=== PATIENT | male | born 1975 | race Caucasian/White ===

== ENCOUNTER 2018-04-02 19:20 | Emergency (ER) | payer OTHER, SELFPAY ==
[2018-04-02 19:21] VITALS: BP 155/98; PULSE 96; RESP 18; TEMP 35.8; O2SAT 95; BMI 29.6
--- NOTE | 2018-04-02 21:21 | ED.DCSUM_ITS ---
- ER Visit Summary Date of Service: 04/02/18 Chief Complaint: Right hand palm laceration thenar eminence History of Present Illness: The patient is a 43 M hand dominant. Past history of anxiety. Unsure of his last tetanus shot which will need to be updated. Order a light fixture at home when it broke lacerated the palm of his right hand at the thenar eminence. No other complaints. This occurred about 2 hours ago. Physical Examination: Well-appearing middle-age male. Vital signs are stable. He is afebrile. He does not appear to be septic or toxic no distress. HEENT exam unremarkable. Lungs clear to auscultation. Heart regular rhythm no murmur. Abdomen soft nontender. Patient moving all 4 extremities. Neurovascular intact. Problems right hand midportion thenar eminence is due to centimeter laceration is a flap that will need to be repaired. Mild oozing of blood. He is able open and close all digits of the right hand. Normal touch sensation. No foreign body or signs of infection. Test Results: None Emergency Department Course and Treatment: Tetanus updated. Procedure note: Right hand laceration repair. Local anesthetic with lidocaine. Washed and explored. Irrigated. Shur-Clens. Closed using 2 simple interrupted 5-0 Ethilon sutures. Proper hemostasis and wound closure obtained. Patient was instructed on wound care. Suture removal. Patient tolerated procedure well. Treatment Plan: Wound care. Suture removal 7-10 days. Return if any signs of infection. Disposition: Discharge Impression: Right hand palm laceration to know centimeters ER repair 2.5 cm. Tetanus updated This note was generated with [employer] dictation software. It may contain incorrect words, spelling, and punctuation that were not noted in review of the chart prior to signing ED Disposition - Plan for ED Patient: Chief Complaint: Laceration Instructions: ED Laceration Hand Referrals: Francisco Javier Osorio MD [Primary Care Provider] - 10 Day for suture removal Additional Instructions: Keep wound clean. Antibiotic ointment daily. Suture removal in 7-10 days. Watch for any signs of infection.
[2018-04-02] MEDS: Diphth,Pertuss(Acell),Tet Vac 0.5 ML Vial IM (21:25)
[2018-04-02 21:29] VITALS: RESP 16
[2018-04-02 23:06] VITALS: BP 142/60; PULSE 80; RESP 16; O2SAT 98
== END 2018-04-02 23:07 | disposition home or self-care (01) ==
PROVIDERS: Emergency Provider Emergency Medicine; Family Provider Internal Medicine; PCP Internal Medicine
DX: S61.411A Laceration without foreign body of right hand, initial encounter (principal); W25.XXXA Contact with sharp glass, initial encounter; Y93.9 Activity, unspecified; Y92.009 Unspecified place in unspecified non-institutional (private) residence as the place of occurrence of the external cause; Y99.9 Unspecified external cause status; Z23 Encounter for immunization; F41.9 Anxiety disorder, unspecified; Z79.899 Other long term (current) drug therapy
CPT/HCPCS: 12001; 90471; 90715; 99284

== ENCOUNTER 2018-09-20 16:04 | Emergency (ER) | payer OTHER, SELFPAY ==
[2018-09-20 16:06] VITALS: BP 134/95; PULSE 108; RESP 16; TEMP 36.3; O2SAT 97; BMI 30.5
--- NOTE | 2018-09-20 16:48 | ED.VISSUMM ---
- ER Visit Summary Date of Service: 09/20/18 Chief Complaint: Nausea, vomiting and diarrhea History of Present Illness: The patient is a 43 M past medical history of anxiety. Patient states that this morning he has had nausea and vomiting x6 without blood diarrhea x3 and feels dehydrated. Denies any significant abdominal pain. Thinks he may have eaten some old or bad ham last night. No one else ate it. Denies any fever. No melena no hematemesis. Physical Examination: Middle-aged male. No acute distress. Vital signs are stable. Afebrile. H EENT exam mildly dry mixed memories. Pupils are reactive light. No facial droop. Signs of trauma. Neck nontender. Lungs clear to auscultation bilaterally. Heart regular rhythm rate about 110 no murmur. Abdomen is soft. Nondistended. Normal bowel sounds no peritoneal signs. No signs of obstruction. Both the right upper right lower quadrant unremarkable. No hernias or masses. Patient is moving all 4 extremities. Neurovascular intact. Neurologically is awake and alert with no focal motor deficits. Test Results: None Emergency Department Course and Treatment: Patient either has a viral gastroenteritis or possibly food poisoning. He will be treated with IV fluids and Zofran and reassess. If he can hold down p.o. fluids will be discharged home. Repeat exam patient is doing well at 2130. Abdomen is benign. He feels better after IV fluids and IV Zofran. He is been able to hold down p.o. fluids. He is comfortable being discharged home. Treatment Plan: Zofran home pack. Increase diet slowly. Plenty fluids and rest. Return if worse. Follow-up with his doctor if not improving. Disposition: Discharge Impression: Acute viral gastroenteritis Mild dehydration This note was generated with [employer] dictation software. It may contain incorrect words, spelling, and punctuation that were not noted in review of the chart prior to signing ED Disposition - Plan for ED Patient: Referrals: Francisco Javier Osorio MD [Primary Care Provider] -
[2018-09-20] MEDS: Ondansetron 4 MG/2 ML Vial IV (17:35)
[2018-09-20] MEDS: 0.9% Normal Saline 1,000 ML 1000 ML IV (17:35)
[2018-09-20 18:20] VITALS: PULSE 89; RESP 16; O2SAT 99
[2018-09-20 20:00] VITALS: BP 143/87; PULSE 96; RESP 21; O2SAT 99
--- NOTE | 2018-09-20 21:42 | ED.DEP ---
ED Disposition - Plan for ED Patient: Disposition: Home or Assisted Living Instructions: ED Gastroenteritis Vs Food Poison Prescriptions: Ondansetron [Zofran Odt] 4 mg PO Q8H PRN PRN #7 tab PRN Reason: Nausea Referrals: Francisco Javier Osorio MD [Primary Care Provider] - 3-5 Days if not improving Additional Instructions: Plenty of fluids and rest. Increase diet slowly and as tolerated. Zofran as needed for nausea. Follow-up with not improving return if feeling worse.
[2018-09-20] MEDS: Ondansetron ODT 4 MG Tablet PO (21:49)
== END 2018-09-20 21:51 | disposition home or self-care (01) ==
PROVIDERS: Emergency Provider Emergency Medicine; Family Provider Internal Medicine; PCP Internal Medicine
DX: A08.4 Viral intestinal infection, unspecified (principal); E86.0 Dehydration; F41.9 Anxiety disorder, unspecified; Z79.899 Other long term (current) drug therapy
CPT/HCPCS: 96361; 96374; 99282; J7030; A4216; J2405

== ENCOUNTER 2018-11-02 18:38 | Emergency (ER) | payer OTHER, SELFPAY ==
[2018-11-02 18:39] VITALS: BP 126/82; PULSE 79; RESP 16; TEMP 36.6; O2SAT 99; BMI 29.7
--- NOTE | 2018-11-02 20:21 | RAD_ITS ---
STUDY: X-RAY CHEST REASON FOR EXAM: Male, 43 years old. Painful rash and cough TECHNIQUE: Frontal and lateral views of the chest. COMPARISON: 03/08/2017 FINDINGS: The lungs are clear and expanded. There is no demonstrated pleural abnormality. Normal size heart. Normal mediastinum and bela. Normal visualized pulmonary arteries. Normal visualized aortic arch and descending thoracic aorta. There are diffuse degenerative changes of the visualized thoracic spine. Remote right rib trauma. There is no demonstrated abnormality of the visualized soft tissue structures of the upper abdomen. RAD/Chest PA and Lateral IMPRESSION: No acute pulmonary findings. Electronically Signed: Osito Pineda MD at 20:39 EDT Tel , Service support ,
--- NOTE | 2018-11-02 20:53 | ED.VISSUMM ---
- ER Visit Summary Date of Service: 11/02/18 Chief Complaint: Rash History of Present Illness: The patient is a [address] Osorio. He reports he has a rash posterior right thigh that began 5 days ago. The rash was preceded by pain. Describes the pain now is an aching, dull pain that is it a 10 worsened 5-10 currently. Is worsened by touching it. Is relieved by not touching it. He denies any paresthesias distally. On review of system patient does report that he had a nonproductive cough for the past 6 days that is associated with chills and mild shortness of breath. He denies any other complaints. Physical Examination: Vitals: Stable. Afebrile. General: Well-nourished and well-developed. Head: Normocephalic atraumatic. Neck: Supple, no lymphadenopathy. No JVD. Nontender. Cardiovascular: Regular rate and rhythm. No murmurs. Respiratory: No respiratory distress. Clear to auscultation bilaterally. Abdominal: Soft, nontender, nondistended, normal bowel sounds. No guarding, rebound, or peritoneal signs. Back: Nontender. Extremities: Nontender, no edema. Skin: Vesicular rash on the posterior surface of his right thigh consistent with shingles. Neurologic: Alert and oriented ?3. Cranial nerves II through XII are intact. Normal strength and sensation. Psych: Normal affect. Test Results: Chest x-ray shows no acute disease. Emergency Department Course and Treatment: Patient was treated with acyclovir p.o. He is resting comfortably. Treatment Plan: Patient will be discharged with acyclovir, Marion, and Tessalon Perles. Instructed to keep the area covered. Follow-up with his primary care physician 1 week if not improving. Return to the emergency department for any worsening symptoms. Disposition: To home in improved and stable condition. Impression: 1. URI. 2. Shingles right L5 distribution. This note was generated with [employer] dictation software. It may contain incorrect words, spelling, and punctuation that were not noted in review of the chart prior to signing ED Disposition - Plan for ED Patient: Disposition: Home or Assisted Living Instructions: Shingles (Herpes Zoster), URI, Viral, No Abx (Adult) Prescriptions: Hydrocodone Bitart/Apap 5-325 [Marion 5MG-325MG] 1 tab PO Q6H PRN PRN 3 Days #10 tab PRN Reason: Pain Prescription Printed Benzonatate [Tessalon Perle] 200 mg PO TID PRN PRN #20 cap PRN Reason: Cough Prescription Printed Acyclovir [Zovirax] 800 mg PO 5X/DAY #35 tab Prescription Printed Referrals: Francisco Javier Osorio MD [Primary Care Provider] - 1 Week if not improving
[2018-11-02] MEDS: Acyclovir 800 MG Tablet PO (21:08)
[2018-11-02 21:13] VITALS: RESP 16
--- NOTE | 2018-11-02 21:14 | ED.RN ---
REVIEWED D/C INSTRUCTIONS, FOLLOW UP CARE, PRESCRIPTIONS, AND S/S THAT WOULD WARRANT A RETURN TO THE ED WITH PT. PT VERBALIZED AN UNDERSTANDING AND DENIES FURTHER QUESTIONS FOR THIS RN. PT SKIN P/W/D, RESP EVEN AND UNLABORED, PT A&O X 3, NO DISTRESS NOTED. PT AMBULATED OUT OF ED, GAIT STEADY.
== END 2018-11-02 21:15 | disposition home or self-care (01) ==
PROVIDERS: Emergency Provider Emergency Medicine; Family Provider Internal Medicine; PCP Internal Medicine
DX: B02.9 Zoster without complications (principal); J06.9 Acute upper respiratory infection, unspecified; Z79.899 Other long term (current) drug therapy
CPT/HCPCS: 71046; 99283

== ENCOUNTER 2019-01-03 17:56 | Emergency (ER) | payer OTHER, SELFPAY ==
[2019-01-03 17:56] VITALS: BP 138/74; PULSE 86; RESP 18; TEMP 36.4; O2SAT 97; BMI 31.2
--- NOTE | 2019-01-03 18:01 | US_ITS ---
STUDY: SCROTUM ULTRASOUND REASON FOR EXAM: Male, 43 years old. Left testicular pain TECHNIQUE: Ultrasound evaluation of the scrotum was performed with color Doppler and static boston-scale imaging. COMPARISON: None. FINDINGS: RIGHT TESTICLE INTRATESTICULAR: There is a normal size of the right testicle. The right testicle measures 4.7 x 3.0 x 2.5 cm. There is a homogenous echotexture. There is normal arterial and normal venous vascularity. There is no demonstrated right testicular mass or cyst. EXTRATESTICULAR: The epididymis is normal in size. The epididymis head measures 1.2 x 0.9 x 0.8 cm. There is normal vascularity of the epididymis. There is no demonstrated epididymal cystic structure. There is a small hydrocele. There is no demonstrated varicocele. There is no demonstrated extratesticular mass or cyst. LEFT TESTICLE INTRATESTICULAR: There is a normal size of the left testicle. The left testicle measures 4.3 x 2.5 x 2.2 cm. There is a homogenous echotexture. There is normal arterial and normal venous vascularity. There is no demonstrated left testicular mass or cyst. EXTRATESTICULAR: The epididymis is normal in size. The epididymis head measures 1.6 x 0.9 x 0.7 cm. There is normal vascularity of the epididymis. There is no demonstrated epididymal cystic structure. There is a small hydrocele. There is no demonstrated varicocele. There is no demonstrated extratesticular mass or cyst. US/Testicular with Arterial Flow IMPRESSION: Normal bilateral testicles. No testicular torsion. Electronically Signed: Alessandro Foley DO at 19:23 EDT Tel [phone], Service support ,
[2019-01-03 18:57] LABS: Bacteria 0 SEEN /hpf (None Seen); Mucous, Urine 0 SEEN /hpf (<or=2+); Squamous Epithelial Cells - UA 0 SEEN /hpf (0-5); White Blood Cells 0 SEEN /hpf (0-5)
[2019-01-03 19:51] LABS: Color, Urine Yellow (Yellow); Glucose, Dipstick Normal (Normal); Ketone-Dipstick Negative (Negative); Leukocyte Esterase-Dipstick Negative /ul (Negative); Nitrite-Dipstick Negative (Negative); Occult Blood-Urine Negative /ul (Negative); Protein-Dipstick Negative (Negative); Urine Bilirubin Dipstick Negative (Negative); Urine Clarity Clear (Clear); Urine Urobilinogen 1 mg/dl (Normal)
[2019-01-03 20:04] LABS: Red Blood Cells-Urine 0-5 SEEN /hpf (0-5)
--- NOTE | 2019-01-03 20:32 | ED.DCSUM_ITS ---
- ER Visit Summary Date of Service: 01/03/19 Chief Complaint: [Left testicle pain] History of Present Illness: The patient is a 43 M [presents to the emergency department with pain in his left testicle that started around 10 AM. Patient denies any trauma. He denies urinary symptoms. Had some mild nausea. Patient states that he had similar pain on the opposite side several weeks ago but it resolved after a couple of days. Patient denies any fevers. Patient does have a remote history of epididymitis. Patient has had hernia repairs in the past but denies any abnormal lumps or masses.] Physical Examination: [HEENT-PERRLA, EOMI. Cranial nerves II through XII grossly intact. TMs clear. Mucous membranes moist. No adenopathy. Cardiovascular-regular rate and rhythm without murmur or ectopy Lungs-clear to auscultation, chest wall stable without crepitus or subcu emphysema Abdomen-normoactive bowel sounds, soft, nontender, no rebound or rigidity, no peritoneal signs. exam-patient is circumcised. Patient has some diffuse tenderness that is difficult to localize over the left testicle as well as the epididymis. Testicle has a normal lie and patient has a normal cremasteric reflex. No hernias palpated in the inguinal canal. No masses palpated. Extremities-intact ?4, normal range of motion, normal pulses, atraumatic] Test Results: [Ultrasound of the testicles obtained was normal. She had a urinalysis that was normal.] Emergency Department Course and Treatment: [] Treatment Plan: [Patient advised to use ibuprofen for discomfort. Patient will be given referral to urology for follow-up.] Disposition: [Discharged home in stable condition.] Impression: [Left testicle pain-etiology uncertain] This note was generated with [employer] dictation software. It may contain incorrect words, spelling, and punctuation that were not noted in review of the chart prior to signing ED Disposition - Plan for ED Patient: Referrals: Francisco Javier Osorio MD [Primary Care Provider] -
--- NOTE | 2019-01-03 20:34 | ED.DEP ---
ED Disposition - Plan for ED Patient: Prescriptions: Ibuprofen [Motrin] 600 mg PO Q8H PRN PRN #30 tab PRN Reason: Pain Score 1-10/10 Prescription Printed Referrals: Francisco Javier Osorio MD [Primary Care Provider] - Ramón Figueroa MD [STAFF PHYSICIAN] - 3-5 Days Additional Instructions: Reason for pain is unclear. Follow up with urology if pain continues. Return if fever, vomiting, or condition worsens
[2019-01-03 20:53] VITALS: RESP 14
== END 2019-01-03 20:54 | disposition home or self-care (01) ==
LOC: ED 19:06
PROVIDERS: Emergency Provider Emergency Medicine; Family Provider Internal Medicine; PCP Internal Medicine
DX: N50.812 Left testicular pain (principal); R11.0 Nausea; Z79.899 Other long term (current) drug therapy
CPT/HCPCS: 76870; 81001; 93976; 99282

== ENCOUNTER → 2019-11-28 | Outpatient (CLI) | payer OTHER, SELFPAY ==
[2019-11-28 11:24] LABS: Hematocrit 43.4 % (40-54); Hemoglobin 14.6 g/dL (13.0-16.5); Mean Corp Hgb Conc 33.6 g/dL (32-36); Mean Corpuscular Hgb 29.4 pg (27.0-32.0); Mean Corpuscular Volume 87.3 fL (80-94); Mean Platelet Vol. 9.6 fl (6.2-12.0); Platelet Count 332 K/mm3 (150-450); RBC Distribution Width SD 40.9 fl (35.1-43.9); Red Blood Count 4.97 M/mm3 (4.6-6.2); White Blood Count 6.3 K/mm3 (4.4-11.0)
[2019-11-28 11:31] LABS: D-Dimer Quantitative (DVT/PE) <= 0.27 FEU/ug/m (0.27-0.49)
[2019-11-28 11:42] LABS: Anion Gap 4 (5-15); BUN 13 mg/dL (7-18); BUN/Creat Ratio 12.4 RATIO (10-20); Calcium,Total 8.8 mg/dL (8.5-10.1); Chloride 107 mmol/L (98-107); Creatinine, Serum 1.05 mg/dL (0.70-1.30); EST Glomerular Filtration Rate 81 mL/min (>60); Est Glom Filt Rate - Afr Amer 98 mL/min (>60); Glucose 91 mg/dL (74-106); Potassium 4.1 mmol/L (3.5-5.1); Sodium Level 141 mmol/L (136-145)
== END | disposition home or self-care (01) ==
PROVIDERS: PCP Internal Medicine; Referring Provider Nurse Practitioner; Visit Provider Nurse Practitioner
DX: R07.9 Chest pain, unspecified (principal); R06.02 Shortness of breath
CPT/HCPCS: 80048; 85027; 85379

== ENCOUNTER → 2019-12-11 05:48 | Outpatient (CLI) | payer OTHER, SELFPAY ==
--- NOTE | 2019-12-11 08:10 | STRESSREP ---
Stress Test Report Date: 12-11-2019 Procedure: Exercise tolerance test/imaging study Indications: Chest pain Consent: Per the patient Procedure: The patient exercised on a Michael protocol for 10 minutes and 30 seconds completing Stage III and 1 minute and 30 seconds of Stage IV achieving a peak heart rate of 155 bpm (88 % predicted maximal heart rate) with a peak blood pressure 170/88 mmHg and a peak MET capacity of 12 METs. The baseline ECG demonstrated normal sinus rhythm; low voltage QRS; poor R wave progression. The peak exercise ECG demonstrated no obvious ECG changes. There were no cardiac dysrhythmias pretest, during exercise, or recovery. The functional capacity was considered good. There was no complaint of chest discomfort during exercise or recovery. The examination was discontinued secondary to dyspnea. Impression: 1. Technically adequate (percent predicted maximal heart rate greater than 85%) exercise tolerance test 2. Peak exercise ECG with no obvious ECG changes 3. There were no cardiac dysrhythmias pretest, during exercise, or recovery 4. Nuclear images pending Myocardial perfusion imaging study: Technique: The patient was injected with 14.6 mCi of technetium 99m Cardiolite and subsequently rest SPECT Cardiolite nuclear imaging was obtained in the horizontal long, vertical long, and short axis views. The patient exercised on a Michael protocol for 10 minutes and 30 seconds completing Stage III and 1 minute and 30 seconds of Stage IV achieving a peak heart rate of 155 bpm (88 % predicted maximal heart rate) with a peak blood pressure 170/88 mmHg and a peak MET capacity of 12 METs. The patient was injected with 44.3 mCi of technetium 99m Cardiolite and subsequently stress SPECT Cardiolite nuclear imaging was obtained in the horizontal long, vertical long, and short axis views. A gated Cardiolite study at peak stress was obtained. Interpretation: Rest and stress SPECT Cardiolite nuclear imaging status post realignment, normalization, and attenuation correction, demonstrates the appearance of relative uniform tracer uptake and myocardial perfusion appearing within normal limits. There is end systolic thickening and brightening. The gated Cardiolite study demonstrates myocardial thickening and inward wall motion. The reported LVEF is 62 %. Impression: 1. Rest and stress SPECT Cardiolite nuclear imaging demonstrate relative uniform tracer uptake and myocardial perfusion appearing within normal limits. 2. The gated Cardiolite study reports an LVEF of 62 %. This note was generated with [employer] software. It may contain incorrect words, spelling, and punctuation that were not noted in checking the note before signing.
== END ==
PROVIDERS: PCP Internal Medicine; Referring Provider Nurse Practitioner; Visit Provider Nurse Practitioner
DX: R07.9 Chest pain, unspecified (principal); R06.02 Shortness of breath
CPT/HCPCS: 78452; 93017; A9500; A4216

== ENCOUNTER 2020-09-17 21:40 | Emergency (ER) | payer OTHER, SELFPAY ==
[2020-09-17 21:41] VITALS: BP 138/89; PULSE 87; RESP 18; TEMP 36.5; O2SAT 95; BMI 32.1
--- NOTE | 2020-09-17 22:16 | EKG12_ITS ---
Test Reason : CP Blood Pressure : / mmHG Vent. Rate : 082 BPM Atrial Rate : 082 BPM P-R Int : 154 ms QRS Dur : 100 ms QT Int : 394 ms P-R-T Axes : 044 -51 007 degrees QTc Int : 460 ms Normal sinus rhythm Low voltage QRS Left anterior fascicular block Abnormal ECG Confirmed by LAURA KHANNA, ALISSA ([id number]), index editor SHAUN MARIN ([id number]) on 09/19/2020 8:40:18 AM Referred By: RONY Confirmed By:ALISSA SANCHEZ MD
[2020-09-17 22:22] VITALS: BP 129/93; PULSE 82; RESP 16; O2SAT 96; O2SAT 99
--- NOTE | 2020-09-17 22:23 | RAD_ITS ---
STUDY: X-RAY CHEST REASON FOR EXAM: Male, 45 years old. chest pain TECHNIQUE: Single AP portable view of the chest. COMPARISON: 11/02/2018 FINDINGS: The lungs are clear and expanded. There is no demonstrated pleural abnormality. Normal size heart. Normal mediastinum and bela. Normal visualized pulmonary arteries. Normal visualized aortic arch and descending thoracic aorta. Normal visualized thoracic spine. Normal visualized ribs, clavicles, and shoulders. There is no demonstrated abnormality of the visualized soft tissue structures of the upper abdomen. RAD/Chest 1 View (Portable) IMPRESSION: Normal x-ray examination of the chest. Electronically Signed: Albert Walker DO at 22:50 EDT Tel , Service support ,
[2020-09-17 22:26] LABS: Absolute Lymphocyte Count 3.53 X10^3/uL (0.83-4.51); Absolute Neutrophil Count 3.6 X10^3/uL (2.0-7.7); Basophil# 0.03 X10^3/uL; Basophil% 0.4 % (0-1); Eosinophil# 0.19 X10^3/uL; Eosinophils% 2.4 % (0-5); Hematocrit 43.9 % (40-54); Hemoglobin 14.5 g/dL (13.0-16.5); Lymphocyte # 3.53 X10^3/ul (0.83-4.51); Lymphocyte % 44.1 % (19-41); Mean Corpuscular Hgb 28.9 pg (27.0-32.0); Mean Corpuscular Volume 87.5 fL (80-94); Mean Platelet Vol. 9.5 fl (6.2-12.0); Monocyte# 0.61 X10^3/uL; Monocyte% 7.6 % (0-10); NRBC Flagged by Analyzer 0 % (0-5); Neutrophil # 3.61 X10^3/uL (2.7-7.7); Neutrophil % 45.1 % (47-70); Platelet Count 321 K/mm3 (150-450); RBC Distribution Width CV 12.9 % (11.6-14.6); Red Blood Count 5.02 M/mm3 (4.6-6.2)
[2020-09-17] MEDS: Aspirin 81 MG TAB.CHEW 324 MG PO (22:29)
[2020-09-17 22:46] LABS: Anion Gap 5 (5-15); BUN 20 mg/dL (7-18); BUN/Creat Ratio 16.7 RATIO (10-20); Calcium,Total 9.2 mg/dL (8.5-10.1); Chloride 105 mmol/L (98-107); EST Glomerular Filtration Rate 69 mL/min (>60); Est Glom Filt Rate - Afr Amer 84 mL/min (>60); Estimated Creatinine Clearance 77.74 ml/min; Glucose 101 mg/dL (74-106); Potassium 4.3 mmol/L (3.5-5.1); Sodium Level 139 mmol/L (136-145)
--- NOTE | 2020-09-17 23:08 | EDS_ITS ---
HPI History of Present Illness Chief Complaint: Chest Pain Narrative Narrative: Patient presents with a few day history of intermittent chest pain he is describing episodes of chest discomfort the last 1 to 2 seconds. He has no back pain or tearing sensation he has no DVT or PE risk factors. No pleuritic component. No calf pain. No recent fever or chills he does say he is more tired than normal but he is also very stressed at work and works 2 jobs. [facility] Medical History (Updated 09/17/20 @ 23:[address] Reginald Garcia MD) Hernia Home Medications cetirizine [Zyrtec] 10 mg PO DAILY 04/02/18 [History Last Taken 09/19/18] duloxetine 15 mg PO QODAY 04/02/18 [History Last Taken 09/19/18] fluticasone propionate 2 sprays IH DAILY 09/20/18 [History Last Taken 09/19/18] acyclovir 800 mg PO 5X/DAY #35 tab 11/02/18 [Rx Last Taken Unknown] benzonatate 200 mg PO TID PRN PRN #20 cap 11/02/18 [Rx Last Taken Unknown] ibuprofen 600 mg PO Q8H PRN PRN #30 tab 01/03/19 [Rx Last Taken Unknown] Allergy/AdvReac Type Severity Reaction Status Date / Time prochlorperazine AdvReac Other Verified 09/17/20 21:43 [From Compazine] Surgical History (Updated 09/17/20 @ 22:33 by Stacia Roberts) History of appendectomy Social History Smoking Status: Never smoker ROS ROS ED ROS Narrative Past medical history: Reviewed Medications: Reviewed Social history: Noncontributory Review of systems: All systems negative except as indicated General: No fever. Generalized fatigue Eyes: No visual changes ENT: No upper airway congestion, normal voice Neck: No neck pain Cardiovascular: Intermittent chest pain as in HPI Respiratory: No shortness of breath or cough Gastrointestinal: No abdominal pain, nausea vomiting or diarrhea Genitourinary: No dysuria Musculoskeletal: Denies myalgias no difficulty with ambulation Skin: No rash Neurological: No memory loss, confusion or any focal weakness Psych: No recent behavioral changes Hematologic: No easy bleeding or easy bruising EXAM Physical Exam Narrative Exam Narrative: Physical exam General: Well nourished, Well developed, No Acute Distress Head: Normocephalic, Atraumatic Eyes: Conjunctiva not pale ENT: Moist mucous membranes Neck: Supple, Nontender, No lymphadenopathy Cardiovascular: Regular rate, Regular rhythm Respiratory: No distress, CTA bilaterally Abdomen: Soft, Nontender, Nondistended Back: Nontender, Normal Inspection. Negative for: CVA tenderness Extremities: Nontender, No edema Skin: Normal color, No rash Neurological: Alert, Normal Strength, Normal Sensation Psychological: Normal affect Const Vital Signs: 09/17/20 21:41 09/17/20 22:22 Temperature 97.7 F L Temperature Source Temporal Pulse Rate 87 82 Respiratory Rate 18 16 Blood Pressure 138/89 H 129/93 H Blood Pressure Mean 105 105 Pulse Ox 95 99 Oxygen Delivery Method Room Air Room Air Heart Score History: Slightly/Non-Suspicious ECG: Normal Age: </= 45 years Risk Factors: 1 or 2 Risk Factors Troponin: </= Normal Limit Score: 1 MDM MDM MDM Narrative Medical decision making narrative: Patient has a normal work-up. Heart score is 1. I will discharge him with reassurance. He may have intermittent PVCs although I did not see him in the ED I will discharge with follow-up with cardiology. Lab Data Labs: Laboratory Results - last 24 hr 09/17/20 09/17/20 21:55 21:55 WBC 8.0 RBC 5.02 Hgb 14.5 Hct 43.9 MCV 87.5 MCH 28.9 MCHC 33.0 RDW Std Deviation 41.0 RDW Coeff of Francie 12.9 Plt Count 321 MPV 9.5 Immature Gran % (Auto) 0.400 Neut % (Auto) 45.1 L Lymph % (Auto) 44.1 H Irion % (Auto) 7.6 Eos % (Auto) 2.4 Baso % (Auto) 0.4 Absolute Neuts (auto) 3.6 Absolute Lymphs (auto) 3.53 Nucleated RBC % 0 Sodium 139 Potassium 4.3 Chloride 105 Carbon Dioxide 29.0 Anion Gap 5 BUN 20 H Creatinine 1.20 Estim Creat Clear Calc 77.74 Est GFR (MDRD) Af Amer 84 Est GFR (MDRD) Non-Af 69 BUN/Creatinine Ratio 16.7 Glucose 101 Calcium 9.2 Troponin I < 0.015 Radiography Chest X-Ray - ED: 1 View, Read by ED Physician and Read by Radiologist Diagnostic Testing: Radiology Impression Chest X-Ray 09/17/20 22:23 IMPRESSION: Normal x-ray examination of the chest. Electronically Signed: Albert Walker DO at 22:50 EDT Tel , Service support , X-ray interpreted by radiologist and emergency doctor is normal Discharge Plan Triage Chief Complaint: Chest Pain ED Provider: Reginald Garcia Dx/Rx/DC Orders Clinical Impression: Chest pain Instructions: ED Chest Pain, Uncertain Cause Prescriptions: No Action duloxetine 20 MG capsule 15 mg PO QODAY RF: 0 cetirizine [Zyrtec] 10 MG capsule 10 mg PO DAILY RF: 0 fluticasone propionate 1 SPRAY Nasal.Sry 2 sprays IH DAILY RF: 0 acyclovir 800 MG tablet 800 mg PO 5X/DAY Qty: 35 RF: 0 benzonatate 100 MG capsule 200 mg PO TID PRN PRN (Reason: Cough) Qty: 20 RF: 0 ibuprofen 600 MG tablet 600 mg PO Q8H PRN PRN (Reason: Pain Score 1-10/10) Qty: 30 RF: 0 Primary Care Provider: Francisco Javier Osorio Referrals: Dale Burroughs MD [STAFF PHYSICIAN] - 3-5 Days Francisco Javier Osorio MD [Primary Care Provider] - 2 Days Disposition Disposition: Home, self care
[2020-09-17 23:19] VITALS: BP 124/70; PULSE 79; RESP 16; O2SAT 98
== END 2020-09-17 23:20 | disposition home or self-care (01) ==
PROVIDERS: Emergency Provider Emergency Medicine; PCP Internal Medicine
DX: R07.9 Chest pain, unspecified (principal); Z79.899 Other long term (current) drug therapy
CPT/HCPCS: 71045; 80048; 84484; 85025; 93005; 99283; A4216

== ENCOUNTER 2020-10-27 09:00 | Outpatient (RCR) | payer OTHER, SELFPAY ==
--- NOTE | 2020-10-27 09:00 | BH.SGPN.GN ---
Behaviors/Verbalizations/Mental Status: []Client alert and oriented, neatly dressed and groomed. Eye contact good. Motor activity appropriate. Speech within normal limits. Affect congruent, mood anxious. Thoughts linear, logical, no signs of hallucinations or delusions. Reviewed client?s symptom tracker, no risk for suicidal ideation, plan, or intent as of 10/27/20 Response/Progress/Benefit: C[] Client responded well to session, attentive and receptive to encouragement. Client reports feeling anxious today as it is his first day in IOP. Client shared that over the past few months he had noticed more crying spells and thoughts of wanting to use a gun to just end it. Client shared he reached out to his outpatient therapist who recommended client come to IOP. Client stated he thought quitting his second job would be enjoy to reduce his depression and improve mood, but it did not solve all the issues. Client hopes to learn more about his mental health and coping skills while in IOP. Will continue IOP tx to prevent decompensation, reduce negative thinking patterns, and improve daily functioning. Narrative Note: []
--- NOTE | 2020-10-27 10:15 | BH.SGPN.GN ---
Behaviors/Verbalizations/Mental Status: [] Eye contact is good. Motor activity is appropriate. Appearance is neat and casual. Speech is Appropriate. Mood is anxious. Affect is congruent. Thoughts are linear and logical. No evidence of psychosis. Client Response/Progress/Benefit: [] Pt was an active participant in group discussion and activity. Attentive during psychoeducation on external coping skills and how coping skills can positively and negatively impact mental health. Reported ?I had to remind myself that it is okay to set the backpack down sometimes too, and ask myself Is it mine to carry??. Pt along with peers provided their thoughts and insights on the definition of coping skills. Pt worked with peers to identify barriers to using healthy coping skills which included; it?s easier, comfortable, habitual, or they don?t know other ways of coping. Worked within small group to complete challenge activity requiring use of several coping skills. Did well to provide and receive supportive feedback. Benefited from increased awareness of coping skills, benefits in using healthy coping skills, and common coping skill barriers. Will continue in IOP to improve continue to decrease anxiety, stabilize mood, and increase heathy coping. Narrative Note: []
--- NOTE | 2020-10-27 11:15 | BH.SGPN.GN ---
Behaviors/Verbalizations/Mental Status: []Client alert and oriented, casual dress, hygiene tended to. Eye contact good. Motor activity appropriate. Speech within normal limits. Affect congruent, mood anxious. Thoughts linear, logical, no signs of hallucinations or delusions. Client Response/Progress/Benefit: []Client responded well to session, actively listening and providing examples. Group discussed the different categories of coping skills which included distraction, emotional release, grounding, self-love, and thought challenging. Client participated in creating a coping skills ?menu? from the five categories of coping skills. Client's coping skill menu included: going on a walk, be artistic, 5 senses, saying no, and positive affirmations. Pt's first day in IOP. Appeared to benefit from increasing repertoire of healthy coping skills. Will continue tx to increase healthy coping, improve boundary setting and prevent decompensation.
--- NOTE | 2020-10-28 09:05 | BH.SGPN.GN ---
Behaviors/Verbalizations/Mental Status: [] Eye contact is good. Motor activity is appropriate. Appearance is neat. Speech is Appropriate. Mood is anxious. Affect is congruent. Thoughts are linear and logical. No evidence of psychosis. Reviewed daily check in sheet and no reports of suicidal ideations or intent. Client Response/Progress/Benefit: [] Pt was an active participant in group discussion. Attentive. Provided appropriate feedback. Emotion for today is hopeful. Reports that yesterday was his first day in IOP and he admits to being emotionally exhausted after groups. Shared that he took a quick nap and then followed through with attempting to accomplish goals that he created for himself during IOP. He baked for the first time since 03/30 which he enjoyed and was actually social with neighbors. Progress noted per pt report. He did report feeling tired as the result of his medications which he feels impacts his motivation and functioning throughout the day. Benefited from group support, encouragement, and feedback. Will continue in IOP to maintain safety, increase healthy coping, and improve functioning to return to work. Narrative Note: []
--- NOTE | 2020-10-28 10:16 | BH.SGPN.GN ---
Behaviors/Verbalizations/Mental Status: [] Client alert and oriented, casually dressed and groomed. Eye contact good. Motor activity appropriate. Speech within normal limits. Affect congruent, mood anxious and depressed. Thoughts linear, logical, no signs of hallucinations or delusions. Client Response/Progress/Benefit: [] Pt actively engaged in group discussion on conflict and the potential benefits of healthy approaches to conflict on mental health as well as barriers in taking a healthy approach to conflict resolution. Pt connected to fellow participants as they reflected on quote. Shared ?This takes me to serenity prayer, to accept the things I cannot change and the strength to change those that I can?. Pt attentive and engaged during psychoeducation about different conflict styles (avoidant, accommodating, cooperative, and competing). Pt identified most often uses accommodating styles for conflict, noting this has resulted in work impacting his physical and mental health as he is now working multiple jobs. Seemed to benefit from increased awareness of the different conflict styles. Pt to continue IOP to continue use of healthy coping skills, continue improving mood stability and anxiety management skills, and prevent decompensation. Narrative Note: []
--- NOTE | 2020-10-28 11:15 | BH.SGPN.GN ---
Behaviors/Verbalizations/Mental Status: []Client alert and oriented, neatly dressed and groomed. Eye contact good. Motor activity appropriate. Speech within normal limits. Affect congruent, mood anxious. Thoughts linear, logical, no signs of hallucinations or delusions. Client Response/Progress/Benefit: []Client engaged in session AEB contributing to discussion and engaging in activity. Client did well to review current conflict style and its impact on mental health. Attentive and taking notes during discussion on strategies for more effectively managing conflict in personal life. Client identified that accommodation is his ?default? conflict resolution type. Client wants to work on changing this by expressing his emotions and needs through words using I-statements. Appeared to benefit from gaining strategies to help client better manage conflict. Will continue IOP tx to prevent decompensation, gain healthy coping skills, and improve daily functioning Narrative Note: []
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
--- NOTE | 2020-10-29 10:15 | BH.SGPN.GN ---
Behaviors/Verbalizations/Mental Status: []Eye contact is good. Motor activity is appropriate. Appearance is neat. Speech is Appropriate. Mood is calm. Affect is congruent. Thoughts are linear and logical. No evidence of psychosis. Client Response/Progress/Benefit: []Client responded well to session, alert and attentive. Group reviewed components of healthy relationships as well as traits of unhealthy relationships. Client shared his romantic relationship has all the healthy components, but ?work is another story.? Group discussed benefits of healthy relationships for one?s mental health such as: validation, increased resilience, perspective, and improved mood. Group also discussed factors that may contribute to people being in unhealthy relationships. Client shared childhood upbringing can cause someone to enter an unhealthy relationship. Participated in the activity and appeared to benefit from gaining insight on risk factors for unhealthy relationships. Will continue to IOP tx to reduce negative thoughts, improve overall functioning, and improve mood. Narrative Note: []
[2020-10-29 10:25] VITALS: BP 134/99; PULSE 75
--- NOTE | 2020-10-29 11:15 | BH.SGPN.GN ---
Behaviors/Verbalizations/Mental Status: [] Eye contact is good. Motor activity is appropriate. Appearance is neat. Speech is Appropriate. Mood is anxious. Affect is congruent. Thoughts are linear and logical. No evidence of psychosis. Client Response/Progress/Benefit: [] Pt was an active participant in group discussion. Provided appropriate feedback and insight. Group processed the experiential activity and identified the skills that helped them succeed which included; working together, communication, persistence, trust, thoughtfulness, and being open to guidance. Able to relate how these skills are also important in a healthy relationships. Group processed skills which were unhelpful during activity which included; poor communication and rushed/impulsive decisions. Group identified the impact that unhealthy relationships can have on one's mental wellness which included; increased anxiety, increased depression, lower self-esteem, increased negative thoughts, poor self-care, physical health, indecisiveness, and confusion. Pt was able to identify one thing that he could do to improve his relationships which is set and maintain boundaries. Benefited from group through insight on collado aspects of unhealthy vs healthy relationships as well as identifying what she could do to improve her current relationships. Will continue in IOP to increase healthy coping skills, stabilize mood, and improve functioning to return to work. Narrative Note: []
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
--- NOTE | 2020-10-29 13:27 | BH.DR.ITP ---
Initial Treatment Plan Patient Information Visit Information: ADMISSION DATE: EXPECTED LOS: 4-6 weeks Problems/Symptoms Problem #1:: Anxiety Symptom:: Worry, panic attacks, rumination Problem #2:: Depression Symptom:: Down mood, apathy, decreased motivation, anhedonia, low energy, decreased concentration, history of suicidal ideation
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
--- NOTE | 2020-10-29 13:52 | BH.MTP_ITS ---
Master Treatment Plan - Patient Information Program Physician:: Dr. Brandt Primary Therapist:: Germania Alarcon [facility] - Psychiatric Diagnoses Psychiatric Diagnoses:: 1. Generalized anxiety disorder. 2. Major depressive disorder, recurrent, moderate Diagnosis Code(s):: F41.1 - Estimated LOS Estimated LOS (in weeks):: 6 Problem/Goal #1 - Problem/Goal #1 Stated Goal:: Stabilize anxiety level while increasing ability to function on a daily basis. Description of Barriers: Pt's distorted thoughts, difficulty saying no, guilt about not being at work, and low motivation could be potential barriers to treatment. Functional Impact: Pt has history of depression and anxiety who was referred to the [facility] behavioral health program by his therapist due to anxiety and depression and his inability to function well at work or at home. The patient has been very stressed by being forced to work 2 jobs in the past several months and when he complains that the job is too stressful and tries to give it up his workplace refuses to let him. This has resulted in severe anxiety and suicidal ideation 2 months ago with thoughts of killing himself with a gun. He asked his to take the guns out of the house at that time. He then had suicidal ideation again a few days ago. Pt currently on leave from work due to MH symptoms. The patient went to the emergency room on in September 2019 and again in September 2020 with severe anxiety, and chest pain and panic attack. Heart attack was ruled out both times. The patient quit his second job 1 week ago and this is permanent, but he now has some mild financial stress due to this. Endorses depressed mood with low motivation, apathy, decreased appetite, increased sleep, low energy, and decreased concentration. He does complain of increased anxiety with chest pain which resulted in several ER visits. - Objectives Objective #1 Stated Objective: Client will learn and implement 2-3 calming skills to reduce overall anxiety and manage anxiety. Interventions: Therapist will teach the client calming/relaxation skills (e.g., muscle relaxation, mindful breathing) and how to discriminate better between relaxation and tension; teach the client how to apply these skills to his/her daily life. Discharge Criteria: Client will have met this objective when can identify at least 2 calming skills that successfully help manage anxious symptoms. Target Date: 12/08/20 Review Date: 11/21/20 Objective #2 Stated Objective: Pt will decrease anxious symptoms AEB pt?s score on the DSM 5 cross-cutting measure improve pt?s daily functioning. Interventions: Through groups and individual therapy, pt will be provided education about anxiety?s impact on body and common physiological reaction to anxiety. Therapist will teach pt appropriate breathing techniques and build healthy coping skills to manage daily anxieties. Discharge Criteria: Pt will have met this goal when pt?s score on the DSM 5 cross cutting measure for anxiety has been decreased and per pt?s report daily functioning has improved. Target Date: 12/08/20 Review Date: 11/21/20 Problem/Goal #2 - Problem/Goal #2 Stated Goal:: Client will reduce depression and hopelessness due to Major Depressive Disorder through IOP Services. Description of Barriers: Pt's distorted thoughts, difficulty saying no, guilt about not being at work, and low motivation could be potential barriers to treatment. Functional Impact: Pt has history of depression and anxiety who was referred to the [facility] behavioral health program by his therapist due to anxiety and depression and his inability to function well at work or at home. The patient has been very stressed by being forced to work 2 jobs in the past several months and when he complains that the job is too stressful and tries to give it up his workplace refuses to let him. This has resulted in severe anxiety and suicidal ideation 2 months ago with thoughts of killing himself with a gun. He asked his to take the guns out of the house at that time. He then had suicidal ideation again a few days ago. Pt currently on leave from work due to MH symptoms. The patient went to the emergency room on in September 2019 and again in September 2020 with severe anxiety, and chest pain and panic attack. Heart attack was ruled out both times. The patient quit his second job 1 week ago and this is permanent, but he now has some mild financial stress due to this. Endorses depressed mood with low motivation, apathy, decreased appetite, increased sleep, low energy, and decreased concentration. He does complain of increased anxiety with chest pain which resulted in several ER visits. - Objectives Objective #1 Stated Objective: Client will learn and utilize 2-3 healthy coping strategies to manage depressive symptoms as shown by reduced DSM-5 cross-cutting symptom measure score. Interventions: Therapist will help client identify triggers and warning signs of depression and will teach client various coping skills to manage client?s symptoms and give client tangible resources to use to regulate emotions. Discharge Criteria: Client will have accomplished this objective when can josette balize use of at least 2 healthy coping skills and demonstrate a decrease in depressive symptoms AEB DSM 5 questionnaire answers. Target Date: 12/08/20 Review Date: 11/21/20 Objective #2 Stated Objective: Client will increase self-care activity to at least two additional activities per week. Interventions: Therapist will help client explore activities enjoys engaging in and provide education on importance of engaging in self-care. Will help pt return to a self-care routine. Discharge Criteria: Client will report utilization of at least 2 self-care activities weekly for at least two weeks in a row. Target Date: 12/09/20 Review Date: 11/21/20
--- NOTE | 2020-11-03 08:57 | BH.SGPN.GN ---
Behaviors/Verbalizations/Mental Status: []Eye contact is good. Motor activity is appropriate. Appearance is neat and casual. Speech is Appropriate. Mood is anxious and euthymic. Affect is congruent. Thoughts are linear and logical. No evidence of psychosis. Reviewed daily check in sheet and client reports of suicidal ideations as a 1/5 which is typical for baseline denies any plan or intent. Client Response/Progress/Benefit: []Pt was an attentive participant AEB actively listening, providing supportive feedback throughout, as well as willingness to process with group. Pt reports emotion for the day as ?anxious but hopeful? and discussed this is related to struggling with addressing unrealistic expectations of himself and how quickly he should be making progress. Shared knowing rationally that his mental health treatment will take time and patience but that he feels guilty not being at work or worries he is a burden to his . Identified mental health wins as taking steps in combating these distortions by talking to his about concerns and making a plan together on how they can best support each other. Additionally, did well to challenge guilt about not being at work through thought challenging and reminding himself: ?I am allowed to take time to work on myself, I have the time to take off. I?ve earned it?. Noted that he is feeling more confident in his decision to get help for his mental health since beginning the IOP program last week and is feeling more encouraged as a result. Shared current stressor is responding to supports who have reached out. Noted not wanting to have to explain himself but ultimately knows his supports are reaching out because they care. Pt benefited from group support, encouragement, and feedback. Will continue in IOP to continue to improve mood stability, further promote healthy coping behaviors, and prevent decompensation. Narrative Note: []
--- NOTE | 2020-11-03 10:10 | BH.SGPN.GN ---
Behaviors/Verbalizations/Mental Status: [] Eye contact is good. Motor activity is appropriate. Appearance is neat. Speech is Appropriate. Mood is anxious. Affect is congruent. Thoughts are linear and logical. No evidence of psychosis. Client Response/Progress/Benefit: [] Pt was an active participant in group discussion and activity. Attentive during psychoeducation. Participated and provided insight along with peers on obstacles or potholes that hinder our ability to communicate in stressful situations. Group identified the following obstacles; impulsivity (reacting to fast to comments and situations), mental health struggles, physical health struggles (headaches, pain, poor sleep), toxic or unhealthy relationship patterns, work/responsibilities (feeling overwhelmed), lack of proper self-care on our part, and negative thinking patterns (mind-reading, catastrophizing). Pt provided insight on how emotion and mood can impact effective communication. Pt did well in his role in the experiential activity and was able to communicate effectively with peers. Benefited from increased awareness on how our emotions impact our communication. Will continue in IOP to prevent decompensation, increase health coping, and improve functioning to return to work. Narrative Note: []
--- NOTE | 2020-11-03 11:10 | BH.SGPN.GN ---
Behaviors/Verbalizations/Mental Status: []Client alert and oriented, neatly dressed and groomed. Eye contact good. Motor activity appropriate. Speech within normal limits. Affect congruent, mood euthymic. Thoughts linear, logical, no signs of hallucinations or delusions. Client Response/Progress/Benefit: []Client engaged in session AEB client listening attentively to peers and providing input. Attentive during psychoeducation on 4 zones of regulation. Client able to identify feelings and behaviors for each zone. Client identified coping skills one can use to support self in each zone which included: opposite action, exercise, journaling, reaching out to support, and grounding skills. Client stated belief that he is in the blue and green zones today as client shared he is feeling better, but he is still in a ?funk?. Client stated he plans to reach out to family and spend time with friends today to further improve mood. Benefited from increased education on zones of regulation or stages of alertness for emotions and healthy coping skills to use for each zone. Will continue IOP tx to further improve mood stability, reduce negative thinking, and improve daily functioning. Narrative Note: []
--- NOTE | 2020-11-04 09:00 | BH.SGPN.GN ---
Behaviors/Verbalizations/Mental Status: [] Eye contact is good. Motor activity is appropriate. Appearance is neat. Speech is Appropriate. Mood is euthymic. Affect is full. Thoughts are linear and logical. No evidence of psychosis. Reviewed daily check in sheet and no reports of suicidal ideations or intent. Client Response/Progress/Benefit: [] Pt was an active participant in group discussion. Attentive. Provided appropriate feedback. Daily symptom tracker notes 2/5 for anxiety and irritability. Mental health wins include just feeling better. Reports that he hosted a dinner with neighbors yesterday and his spouse noted that seemed like his old self. Increased energy, less napping, and future-oriented. He shared an incident at the dinner that was concerning for him however per report is trying to see the humor in the event and not ruminating on it. He asked peers for feedback which was beneficial. Progress noted per pt report. Will continue in IOP to prevent decompensation, increase healthy coping, and improve functioning to return to work. Narrative Note: []
--- NOTE | 2020-11-04 10:08 | BH.SGPN.GN ---
Behaviors/Verbalizations/Mental Status: []Client alert and oriented, neatly dressed and groomed. Eye contact good. Motor activity appropriate. Speech within normal limits. Affect congruent, mood euthymic. Thoughts linear, logical, no signs of hallucinations or delusions. Client Response/Progress/Benefit: []Client responded well to session, attentive and contributing to discussion. Group discussed potential barriers to communication including: yelling, shutting down, passive-aggressive behaviors, and mind-reading. Client shared an example of a time her was passive-aggressive towards his and although he can laugh about it now, client recognizes that it made the problem worse. Helped group identified positives of having effective communication skills. Attentive during psychoeducation on the four communication styles. Client reported he uses both passive and assertive communication. Able to recognize negative outcomes of communication style such as over apologizing. Seemed to benefit from increased awareness of the different communication styles and identify personal communication style. Client to continue in IOP tx to further improve mood stability and increase self-confidence. Narrative Note: []
--- NOTE | 2020-11-04 11:08 | BH.SGPN.GN ---
Behaviors/Verbalizations/Mental Status: []Client alert and oriented, casually dressed and appropriately groomed. Eye contact good. Motor activity appropriate. Speech WNL. Affect congruent, mood euthymic. Thoughts linear, logical, no signs of hallucinations or delusions. Client Response/Progress/Benefit: []Client responded well to session AEB client listening attentively to others and providing input during group discussion on the pay offs and costs of the different communication styles. Attentive during psychoeducation on interpersonal DBT skill DAVINA and client selected a communication skill to practice. Client selected the skill of expressing and asserting himself. Client stated he recognizes being passive leads to his needs not getting met. Client seemed to benefit from increasing awareness of healthy strategies to improve communication. Will continue IOP tx to maintain gains, increase healhty coping and prevent decompensation.
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
--- NOTE | 2020-11-05 09:00 | BH.SGPN.GN ---
Behaviors/Verbalizations/Mental Status: []Client alert and oriented, neatly dressed and groomed. Eye contact good. Motor activity appropriate. Speech within normal limits. Affect congruent, mood euthymic and anxious. Thoughts linear, logical, no signs of hallucinations or delusions. Reviewed client?s symptom tracker, no risk for suicidal ideation, plan, or intent as of 11/05/20 Client Response/Progress/Benefit: []Client responded well to session, attentive and providing support to peers. Client reports feeling hopeful and anxious this morning. Client shared his biggest stressor right now is worrying about returning to work. Client stated he recognizes he has strengths that will help client transition back to work such as positive self-talk. Client shared he used a communication strategy he learned in IOP while talking with his . Client has also been using opposite action which has reduced avoidance. Appeared to benefit from reflecting on wins. Will continue IOP tx to promote mood stability and help client more effectively transition back to work. Narrative Note: []
--- NOTE | 2020-11-05 10:15 | BH.SGPN.GN ---
Behaviors/Verbalizations/Mental Status: [] Eye contact is good. Motor activity is appropriate. Appearance is neat. Speech is Appropriate. Mood is anxious. Affect is congruent. Thoughts are linear and logical. No evidence of psychosis. Client Response/Progress/Benefit: [] Pt was an active participant in group activity and discussion. Attentive during psychoeducation on fixed mindset. Pt along with her peers provided insight on the aspects of a fixed mindset which included; being rigid, absolute thinking, why bother perspective, no confidence that one can succeed, and thoughts that one will never get better. Pt and peers were presented with a task which was meant to seem impossible. Pt identified common fixed mindset statements that she often uses which are I can do this on my own and I have to help everyone. Benefited from education on fixed mindset and how it impacts mental health. Will continue in IOP to maintain safety, increase healthy coping, improve social skills, and prevent decompensation. Narrative Note: []
--- NOTE | 2020-11-05 11:15 | BH.SGPN.GN ---
Behaviors/Verbalizations/Mental Status: [] Client alert and oriented, neat and casually dressed and groomed. Eye contact good. Motor activity appropriate. Speech within normal limits. Affect congruent. mood anxious and euthymic. Thoughts linear, logical, no signs of hallucinations or delusions. Client Response/Progress/Benefit: [] Client engaged during activity and discussion AEB providing input and supportive feedback, as well as taking notes throughout. Client did well to engage as group worked on identifying characteristics and benefits of adopting a growth mindset. Worked with fellow participants in reframing the example fixed thoughts into growth mindset thoughts, providing support throughout. Client worked in small group to apply skills learned to reframe own personal fixed thoughts. Reframed personal fixed thought of ?I have to do it perfectly or I?ve failed them? with growth mindset thought of ?It?s okay if things aren?t perfect. As long as you are trying that?s what?s important?. Noted that this would aid in reducing stress and anxiety perspective, and improve willingness to ask for help. Benefitted from discussing benefits of growth mindset and brainstorming strategies for prompting growth-mindset. Will continue IOP tx to continue to promote active thought challenging and skill application, maintain stability, as well as continue to improve healthy coping repertoire. Narrative Note: []
== END 2020-11-08 23:59 ==
LOC: BHIOP 09:00
PROVIDERS: PCP Internal Medicine; Referring Provider Psychiatry & Neurology Psychiatry; Visit Provider Psychiatry & Neurology Psychiatry
DX: F41.1 Generalized anxiety disorder (principal); F33.1 Major depressive disorder, recurrent, moderate; G47.33 Obstructive sleep apnea (adult) (pediatric); R45.851 Suicidal ideations; Z79.899 Other long term (current) drug therapy; Z81.8 Family history of other mental and behavioral disorders; Z81.1 Family history of alcohol abuse and dependence
CPT/HCPCS: S9480; 90832; 90834; 90853

== ENCOUNTER 2020-11-10 08:28 | Outpatient (RCR) | payer OTHER, SELFPAY ==
[2020-11-09 00:39] VITALS: BP 134/99; PULSE 75
--- NOTE | 2020-11-10 09:00 | BH.SGPN.GN ---
Behaviors/Verbalizations/Mental Status: [] Eye contact is good. Motor activity is appropriate. Appearance is neat and casual. Speech is Appropriate. Mood is euthymic, anxious. Affect is congruent. Thoughts are linear and logical. No evidence of psychosis. Reviewed daily check in sheet and client denies suicidal ideations, plan, or intent. Client Response/Progress/Benefit: [] Pt was an attentive participant AEB actively listening, providing supportive feedback, as well as willingness to process with group. Client reports emotion for the day as ?anxious? noting this is due to struggling with guilt about a boundary he wants to set. Shared that he has a tendency to overwhelm himself with the caretaking responsibilities of those around him and ends up feeling guilty when he tries to say no to helping with something. Did well to identify THE BENEFITS OF FOLLOWING THROUGH WITH HEALTHY BOUNDARY SETTING AND BENEFITED FROM GROUP SUPPORT IN CHALLENGING distortions contributing to guilt. Pt did well to identify mental health wins which included taking time to engage in spiritual self-care via daily devotionals, as well as making time to hangout with social supports. Benefited from group support, encouragement, and feedback. Will continue in IOP to further improve mood stability, continue to promote healthy coping behaviors, and prevent decompensation. Narrative Note: []
--- NOTE | 2020-11-10 09:06 | BH.PSA ---
Suicide Assessment Treatment Plan Recommendations
--- NOTE | 2020-11-10 09:06 | BH.PSA_ITS ---
Suicide Assessment Treatment Plan Recommendations
--- NOTE | 2020-11-10 10:05 | BH.SGPN.GN ---
Behaviors/Verbalizations/Mental Status: []Client alert and oriented, neat and casually dressed and groomed. Eye contact good. Motor activity WNL. Speech within normal limits. Affect congruent, mood anxious and euthymic. Thoughts linear, logical, no signs of hallucinations or delusions. Client Response/Progress/Benefit: []Client responded well to session, attentive and engaged throughout discussion and activity. Agreed with session quote and shared that fear has kept him from taking chances and resulted in staying stagnant in the past. The group discussed how mindset and one?s reaction to setbacks determines progress. Client shared fear of other?s responses and vulnerability has reinforced his fear of failure in the past and led to client overcompensating or taking on more than he was able to manage in the past. Discussed fear of failure preventing him from setting boundaries with himself and others. Client appeared to benefit from gaining awareness of the impact fear of failure can have on one?s mental health and wellbeing. Progress noted as client continues gain insight and coping skills which have improved overall ability to manage stressors and begin setting boundaries. Will continue IOP to reduce symptoms, combat distortions, improve healthy boundary setting, and improve daily functioning. Narrative Note: []
--- NOTE | 2020-11-10 11:10 | BH.SGPN.GN ---
Behaviors/Verbalizations/Mental Status: []Client alert and oriented, neatly dressed and groomed. Eye contact good. Motor activity appropriate. Speech within normal limits. Affect congruent, mood euthymic. Thoughts linear, logical, no signs of hallucinations or delusions. Client Response/Progress/Benefit: []Client responded well to session, engaged during activity and discussion. Client completed the fear of failure worksheet and reported that fear of failure has kept client from setting boundaries. Client able to identify thoughts and behaviors that reinforce personal fear of failure which included: ?can?t say no,? fear of disappointing others, lack of self-compassion, and isolation. Client attentive during discussion of the different strategies to help overcome fear of failure. Identified wanting to work on giving himself the same janeen he would give to others to overcome fear of failure. Appeared to benefit from identifying strategies with peers. Will continue IOP tx to promote mood stability, further reduce negative thought patterns, and improve daily functioning. Narrative Note: []
--- NOTE | 2020-11-10 19:43 | BH.MDN_ITS ---
Multi-Disciplinary Note - Note 30-min Individual Time Started:: 12:05 Date: 11/10/20 Purpose of session/treatment goals addressed:: Purpose of session was to address goal 1 from MTP. Eye Contact:: Good Motor Activity:: Appropriate Appearance:: Casual Speech:: Appropriate Mood:: Euthymic Affect:: Congruent Thoughts:: Linear, Logical, No evidence of hallucinations/delusions noted Staff Interventions:: Therapist used open ended questions to elicit pt's current symptoms and stressors. Therapist reviewed importance of self-care, discussing benefits. THerapist assisted pt with problem solving how to deal with a stressful situation when returns to work. Therapist provided psychoeducation about boundaries, reviewing strategies to improve boundary setting. Provided educational information about boundaries for pt to read for homework. Client Response:: Pt reported he realized last week that he hasn't been engaging in self-care in a long time. Pt stated over the weekend he got a pedicure and did a face mask. Pt reported it felt so good to get back into his routine of taking care of himself. Pt stated on Tuesday he is going on a self-care get away with his to get back into caring for himself. Pt reported he maria esther gnizes the importance of taking care of himself and will make sure to keep self- care a priority when he returns on a reduced schedule to work in two weeks. Pt discussed stressor of having to manage a employee at work when he returns. Pt receptive to feedback on how to advocate for self and employee to HR. Pt connected with importance of setting and keeping boundaries. Responded well to information about how to determine and maintain boundaries. Agreeable to complete homework of reading provided educational materials. Risks/Concerns:: Pt denies suicidal ideation, plan or intention to date. Progress Toward Goals/Plan:: Progress noted with pt reporting improved mood, increased self-awareness, focusing on self-care, and decreased stress. Pt con tinues to report struggles with setting boundaries and anxiety about returning to work. Pt to continue IOP to practice setting boundaries, challenge negative thoughts, and prevent decompensation. Time Stopped:: 12:30
--- NOTE | 2020-11-11 09:10 | BH.SGPN.GN ---
Behaviors/Verbalizations/Mental Status: [] Eye contact is good. Motor activity is appropriate. Appearance is neat. Speech is Appropriate. Mood is anxious. Affect is congruent. Thoughts are linear and logical. No evidence of psychosis. Reviewed daily check in sheet and no reports of suicidal ideations or intent. Client Response/Progress/Benefit: [] Pt was an active participant in group discussion on blame and its role in mental wellness. Attentive. Provided appropriate feedback. Daily symptom tracker notes 05/16 for depression. Emotion for today is excited. Mental health wins include calling support and having a difficulty conversation and going out of town this weekend for self-care. Increase in ruminations regarding work due to a text from his boss last week. Text triggered a series of bad memories regarding work and his eventual return in a few weeks. Increased anxiety however utilized skills and reports that he has learned a great deal of coping skills which he plans to utilize when her returns. He also feels confident in his ability to set more boundaries. Progress noted per pt report. Benefited from group discussion, support, and feedback. Will continue in IOP to maintain safety, prevent decompensation, and to improve functioning to return to work. Narrative Note: []
--- NOTE | 2020-11-11 10:15 | BH.SGPN.GN ---
Behaviors/Verbalizations/Mental Status: []Client alert and oriented, neatly dressed and groomed. Eye contact good. Motor activity appropriate. Speech within normal limits. Affect congruent, mood euthymic. Thoughts linear, logical, no signs of hallucinations or delusions. Client Response/Progress/Benefit: []Pt was an active participant in group discussion and activity. Insight during activity that finding positive aspects may be more challenging, but it can reduce ?chaos.? Pt along with peers were able to identify what could impact one's perspective which included; mood, intuitions, internal bias, stress, and mental health. Group was able to identify how a negative perspective could hinder mental health progress. Pt also shared how challenging his perspective while in IOP has led to more happiness and doing things he used to enjoy. Benefited from group by increasing awareness on the role of perspective in mental health wellness. Will continue in IOP to further improve mood and functioning that will help client return to work. Narrative Note: []
--- NOTE | 2020-11-11 11:18 | BH.SGPN.GN ---
Behaviors/Verbalizations/Mental Status: []Client alert and oriented, casually dressed and groomed. Eye contact good. Motor activity appropriate. Speech within normal limits. Affect congruent, mood euthymic. Thoughts linear, logical, no signs of hallucinations or delusions. Client Response/Progress/Benefit: []Pt responded well to session AEB pt providing input to session, completing worksheet, and listening attentively to peers. Pt identified personal strengths to include: common sense, sense of humor, kindness, and attention to detail. Pt shared that these personal strengths can continue to assist in managing his mental health by helping to reduce intensity of the moment and obtain some emotional release while also encouraging him to continue to set limits and boundaries as well as promote self-love. Identified importance of reminding himself of his personal strengths and practicing using them daily in order to further promote self-compassion and improve resilience. Pt to continue IOP to maintain gains, continue to challenge distorted thoughts which reinforce anxiety, and prevent decompensation. Narrative Note: []
--- NOTE | 2020-11-12 09:02 | BH.SGPN.GN ---
Behaviors/Verbalizations/Mental Status: []Client alert and oriented, casually dressed and groomed. Eye contact good. Motor activity appropriate. Speech within normal limits. Affect congruent, mood anxious and euthymic. Thoughts linear, logical, no signs of hallucinations or delusions. Reviewed client?s symptom tracker, no risk for suicidal ideation, plan, or intent as of 11/12/20 Client Response/Progress/Benefit: []Client responded well to session, providing supportive feedback and receptive to support from peers and curer acid drum. Client reports feeling excited this morning, as he and his are going away for a few days. Client describes this as a win as he is making time to connect with his partner and prioritize their relationship which has been a struggle given the additional caregiving responsibilities client has recently taken on. Client shared making time to re-engage in things he enjoys has been an empowering experience. Expressed current stressor as still feeling impatient and on edge after running late to drop his dog off to be boarded this morning. Shared he momentarily became irritable with another woman in line as she had been taking a long time to schedule future grooming appointments. Insight that running late had impacted his stress tolerance levels and shared calling a support to vent and laugh which helped reduce stress and improve his mood before arriving to group. Progress noted in reduced overall reports of anxiety and improved use of emotion regulation skills, but client continues to struggle with skill application consistently. Will continue IOP tx to prevent decompensation, maintain stability, and improve overall functioning. Narrative Note: []
--- NOTE | 2020-11-12 10:15 | BH.SGPN.GN ---
Behaviors/Verbalizations/Mental Status: [] Eye contact is good. Motor activity is appropriate. Appearance is neat. Speech is Appropriate. Mood is anxious. Affect is congruent. Thoughts are linear and logical. No evidence of psychosis. Client Response/Progress/Benefit: [] Pt was an active participant in group discussion and activity. Attentive during psychoeducation. Pt provided feedback and insight into reasons that people take action to improve mental wellness which included; benefits outweigh the risks, distress so long that one has to do something, hopeless and need options, and external motivations. Group members were able to identify what exactly taking action meant to them which included; starting and showing up to IOP and mental health treatment, taking medications, utilizing skills, and making an effort. Pt identified the obstacles that are holding him back from taking action which were grief and guilt. Benefited from increase awareness of the importance of taking action as well as obstacles that impact him from taking actions. Will continue in IOP to prevent decompensation, stabilize mood, and improve functioning to return to work. Narrative Note: []
--- NOTE | 2020-11-12 11:15 | BH.SGPN.GN ---
Behaviors/Verbalizations/Mental Status: []Client alert and oriented, casually dressed and appropriately groomed. Eye contact good. Motor activity appropriate. Speech within normal limits. Affect congruent, mood slightly sad. Thoughts linear, logical, no signs of hallucinations or delusions. Client Response/Progress/Benefit: []Client responded well to session, taking notes and participating in worksheet discussion. Client set a goal to gain control over reducing the guilt client feels about having to put his aunt into a skilled nursing. Client wants to be able to work on this by using positive self-talk statements to remind himself that ?I?m not the one who gave her dementia and I?m just trying to help.? Client stated to help accomplish this goal client will talk to his mother for support. Worked with group to brainstorm ideas to help increase follow through of goal. Appeared to benefit from identifying a small goal to benefit mental health. Will continue IOP tx to promote gains, further reduce distorted thinking, and improve work-related functioning. Narrative Note: []
--- NOTE | 2020-11-12 12:38 | PCM.BH.PN ---
Progress Note Progress Note: History of Present Illness/Interim History: [] The patient is a 45-year-old male who was seen in the [facility] behavioral health IOP program 2 weeks ago for symptoms of anxiety and depression. The patient feels he is much better and is doing well in the program as does the staff. He feels he is learning good tools to help him deal with his issues. His mood is less depressed and he has more energy during the day. He is much less tired during the day. He is not taking any naps during the day since he started IOP. He does have some vivid dreams but not nightmares. He has had no panic attacks in the past week. He denies any suicidal ideation or passive thoughts of . He has started to resume self-care and he feels this is also therapeutic. He is looking forward to a 4-day spa vacation with his in the next few days. Current Psychiatric Medications: [] Cymbalta 30 mg p.o. daily (increased on September 23); Xanax 0.25 mg (did not require any last week). Mental Status Examination: [] The patient is a 45-year-old male who is casually dressed and groomed with good hygiene and is seen wearing a mask due to the pandemic. He is cooperative and pleasant during the interview and has no psychomotor agitation or retardation. Eye contact is good and speech is normal rate and rhythm and fluent with no pressure. Mood is mildly depressed. Affect is full and normal. Thought process is goal-directed and organized. Thought content: There is no evidence of passive thoughts of or suicidal ideation. There is no evidence of homicidal ideation, hallucinations, delusions. Judgment is intact. Insight is good. Impulsivity is low. Diagnoses: [] 1. Generalized anxiety disorder 2. Major depressive disorder, recurrent, moderate 3. Obstructive sleep apnea 4. Work and financial issues Plan: [] The patient will continue the IOP program at [facility] as the structure, support, education and group therapy will hopefully prevent worsening of the patient's symptoms. He felt safe during the interview and if it anytime he does not feel safe he will let us know or go to the emergency room. The risk, options, and possible complications of the medications were discussed with the patient and he understands and accepts these. He agrees to stay on the medication and no longer wants to decrease or get off it soon. No medication changes were made today. I will see the patient in follow-up in several weeks and he will continue to follow-up with his outpatient providers.
--- NOTE | 2020-11-17 09:04 | BH.SGPN.GN ---
Behaviors/Verbalizations/Mental Status: []Client alert and oriented, casually dressed and groomed. Eye contact good. Motor activity appropriate. Speech within normal limits. Affect congruent, mood euthymic. Thoughts linear, logical, no signs of hallucinations or delusions. Reviewed client?s symptom tracker, no risk for suicidal ideation, plan, or intent as of 11/17/20 Client Response/Progress/Benefit: [] Client responded well to session, attentive, providing supportive feedback, and willing to process with group. Client reports feeling ?optimistic? this morning and expressed this is due to continuing to take steps in making self-care an active part of his routine. Discussed taking steps to practice disconnecting from technology and more intimately connecting with his spouse over the weekend. Shared that they were able to go 4 full days without using their phones which client notes is a major mental health win. Reflected feeling less anxious and more grounded as a result and discussed plans to make more of a conscious effort to disconnect throughout the week. Additional win noted as creating a more structure plan for his return to work next week as this is client?s primary stressor at this time. Discussed various skills he can utilize upon his return. Appeared to benefit from group support and encouragement. Will continue IOP tx to prevent decompensation, continue to improve mood stability, and further manage anxiety as client transitions back to work. Narrative Note: []
--- NOTE | 2020-11-17 10:10 | BH.SGPN.GN ---
Behaviors/Verbalizations/Mental Status: [] Eye contact is good. Motor activity is appropriate. Appearance is casual. Speech is Appropriate. Mood is euthymic. Affect is full. Thoughts are linear and logical. No evidence of psychosis. Client Response/Progress/Benefit: [] Pt was an active participant in group discussion and activity. Attentive during psychoeducation. Provided feedback and insight. Along with group members pt provided insight on definition and benefits of self-care. Benefits that the group was able to identify included; improves relationships, decreases anger and burnout, gives one a sense of identity, improves communication, increases awareness of values/needs, can rejuvenate oneself, helps one be more engaged, improves physical health, and can improve productivity. Pt participated in activity and was able to make connect between experiential group task and self-care. Group processed the activity and identified consequences of neglecting self-care which can include; hospitalization, suicide attempts, lose supports, and poor overall functioning. Benefited from group by increasing awareness of benefits to self-care and consequences of neglecting self-care. Will continue in IOP to maintain safety, prevent decompensation, and improve functioning to return to work. Narrative Note: []
--- NOTE | 2020-11-17 11:10 | BH.SGPN.GN ---
Behaviors/Verbalizations/Mental Status: []Client alert and oriented, neatly dressed and groomed. Eye contact good. Motor activity appropriate. Speech within normal limits. Affect congruent, mood euthymic. Thoughts linear, logical, no signs of hallucinations or delusions. Client Response/Progress/Benefit: []Client engaged participant AEB client taking notes during discussion and listened attentively to peers. Participated in group discussion on the various areas of self-care, benefits, and types of self-care activities for each area. Client completed worksheet in which client identified current self-care practices and what self-care activities client wants to start using. Client reported wanting work on social self-care by starting a book club with his neighbors. Client shared ?this will give me a reason to read and we?ve been talking about it forever.? Appeared to benefit from reflecting on the area of self-care client can improve and setting a small goal. Will continue IOP tx to promote mood stability, increase self-care, and further challenge negative thinking. Narrative Note: []
--- NOTE | 2020-11-20 09:00 | BH.SGPN.GN ---
Behaviors/Verbalizations/Mental Status: []Pt eye contact good, casually dressed, motor activity appropriate, speech normal rate and tone, mood euthymic, congruent affect, thoughts linear and intact, no evidence of delusions or hallucinations. Reviewed client?s symptom tracker, no signs of suicidal ideation, plan, or intent as of today. Client Response/Progress/Benefit: Pt responded well to session AEB pt listened attentively to others and openly sharing thoughts and feelings. Per pt's daily symptom tracker he indicates a decrease in agitation compared to earlier in the week. Pt reports continuing to feeling like his mood and ability to function has improved. Pt identified positives as taking a walk this morning with his before IOP. Pt stated feeling anxious, yet excited about returning to work on a reduced schedule next week. Pt reported stress about having a vivid thought/feeling that he had a gun against his head. Pt stated worried he was having suicidal thoughts again, but reported he hasn't felt suicidal and is not depressed. Seemed to benefit from education about intrusive thoughts and reported he does not have any thoughts of wanting to . Pt to continue IOP to continue use of healthy coping skills, transition back to work successfully and prevent decompensation. Narrative Note: []
--- NOTE | 2020-11-20 10:15 | BH.SGPN.GN ---
Behaviors/Verbalizations/Mental Status: []Client alert and oriented, casually dressed and groomed. Eye contact good. Motor activity appropriate. Speech within normal limits. Affect congruent, mood euthymic. Thoughts linear, logical, no signs of hallucinations or delusions. Client Response/Progress/Benefit: []Pt was an engaged participant, actively provided input and examples during discussion, taking notes, and was attentive during psychoeducation. Participated during short activity about automatic thoughts, indicated relating to how automatic thoughts can influence behaviors, mood, self-talk, and relationships with others. Group was primarily educational; therapist introduced and gave examples of the 10 cognitive distortions. Benefited from education and increased awareness of cognitive distortions and role that they play in negative thoughts and emotions. Provided example of his own use of catastrophizing thoughts. Pt reported connecting with the following distortions: all or nothing thinking, jumping to conclusions, catastrophizing, disqualifying the positives, and personalization. Shared that distortions have kept him from setting and maintaining boundaries, practicing self-care, and allowing himself compassion in the past. Will continue IOP tx to prevent decompensation, continue to promote mood stability, and continue to manage anxiety as client transitions back to full-time employment. Narrative Note: []
--- NOTE | 2020-11-20 15:23 | BH.MDN ---
Multi-Disciplinary Note - Note 30-min Individual Time Started:: 11:25 Date: 11/20/20 Purpose of session/treatment goals addressed:: Purpose of session was to address goals 1 and 2 from MTP. Eye Contact:: Good Motor Activity:: Appropriate Appearance:: Neat Speech:: Appropriate Mood:: Euthymic Affect:: Congruent Thoughts:: Linear, Logical, No evidence of hallucinations/delusions noted Staff Interventions:: Therapist used open ended questions to elicit pt's current symptoms and stressors. Psychoeducation provided about intrusive thoughts. Assessed for lethality. Reviewed return to work plan. Provided support by using active listening. Client Response:: Pt reported he had a vivid thought randomly yesterday that he was holding a gun to his head. Pt stated the thought came out of no where but really worried him. Pt reported he was not having any thoughts of wanting to or actually kill himself. Pt connected with education about intrusive thoughts. Pt stated he hasn't had any thoughts of suicide since he started IOP. Pt stated he feels ready to return to work on a reduced schedule next week. Pt reported he knows what boundaries he needs to set when he returns to work. Pt stated he has been making himself a little notebook of helpful reminders he has learned through IOP to help him when at work. Risks/Concerns:: denies suicidal/homicidal ideation, plan or intention to date. Progress Toward Goals/Plan:: Progress noted with pt reporting improved mood, consistent use of healthy skills outside IOP, and feeling ready to return to work on a reduced schedule next week. Pt to continue IOP to maintain gains, successfully transfer back to work and prevent decompensation. Time Stopped:: 12:00
--- NOTE | 2020-11-21 09:00 | BH.SGPN.GN ---
Behaviors/Verbalizations/Mental Status: [] Eye contact is good. Motor activity is appropriate. Appearance is neat. Speech is Appropriate. Mood is euthymic. Affect is full. Thoughts are linear and logical. No evidence of psychosis. Reviewed daily check in sheet and no reports of suicidal ideations or intent. Client Response/Progress/Benefit: [] Pt was an active participant in group discussion on positive psychology. Attentive. Provided appropriate feedback. Daily symptom tracker notes 0/5 for symptoms. Pt reports being extremely positive and optimistic today. Emotion for today is optimistic. Reports that he has exercised for the 3rd day in a row and feels that he is getting back into his routine. More active each week and stating to feel like my old self and the old me is returning. Both statements referring to his mood before decompensation. He is set to return to work next week which is significant stressors however is positive stating I know that the environment is the same but I have changed. Utilizing skills. Progress noted per pt report. Will continue in IOP to maintain gains and transition back to full-time work. Narrative Note: []
--- NOTE | 2020-11-21 10:03 | BH.SGPN.GN ---
Behaviors/Verbalizations/Mental Status: []Client alert and oriented, neatly dressed and groomed. Eye contact good. Motor activity appropriate. Speech within normal limits. Affect congruent, mood euthymic. Thoughts linear, logical, no signs of hallucinations or delusions. Client Response/Progress/Benefit: []Client engaged in session AEB taking notes and contributing to discussion. Client shared connecting with the importance of setting boundaries, and noted that he has not been able to set healthy boundaries until recently. Client shared ?if I would have set boundaries at work I might not have ended up in IOP.? Client assisted group with identifying benefits of setting boundaries such as improved relationships, reduced anxiety, and increased self-esteem. Listened during psychoeducation on different types of boundaries. Client seemed to benefit from increased awareness of how boundaries impact mental health and the different types of boundaries there are. Progress noted in client?s report of improved mood and feeling excited to return to work next week. Will continue IOP tx promote gains and help client transition back to work. Narrative Note: []
--- NOTE | 2020-11-21 11:12 | BH.SGPN.GN ---
Behaviors/Verbalizations/Mental Status: [] Client alert and oriented, casually dressed and appropriately groomed. Eye contact good. Motor activity appropriate. Speech within normal limits. Affect congruent, mood euthymic. Thoughts linear and intact. no signs of delusions or hallucinations. Client Response/Progress/Benefit: [] Client responded well to session AEB listening attentively to peers and providing input and examples throughout. Client engaged in the boundary self-assessment activity and processed within their small group. Client reported the assessment was ?really eye-opening to me about some areas where I may struggle still? discussing that he has significantly improved personal boundaries in the past few weeks but continues to struggle at times. Shared this is most difficult within personal relationships. Client was attentive and contributed during psychoeducation on the different boundary styles. Client stated he tends to struggle with people pleasing at work and feels guilty when saying ?no?. Client recognizes that this is what primarily resulted in seeking IOP treatment initially as he became too overwhelmed with responsibilities. Participated in group discussion brainstorming various strategies for improving healthy personal boundaries. Client identified wanting to work on being more aware of his own boundaries and reminding himself of what ?healthy? can look like. Progress noted in improved communication with supports and use of self-care. Will continue IOP tx to continue challenging negative thoughts, improve anxiety management and boundary setting, and prevent decompensation. Narrative Note: []
--- NOTE | 2020-11-21 15:48 | BH.TPR ---
Treatment Plan Review Date of Admission:: 10/27/20 Date of Treatment Plan Review:: 11/21/20 Admitting Diagnoses:: 1. Generalized anxiety disorder F41.1. 2. Major depressive disorder, recurrent, moderate. Obstruction 3. Obstructive sleep apnea. 4. Work and financial issues Current Diagnoses:: 1. Generalized anxiety disorder F41.1. 2. Major depressive disorder, recurrent, moderate. Obstruction 3. Obstructive sleep apnea. 4. Work and financial issues Patient's Response to Treatment:: Pt consistently attends IOP, provides positive feedback throughout sessions, active participant in both group and individual sessions, and applies skills outside treatment environment. Status of Current Problems and Symptoms: Significant treatment progress since starting IOP. At review overall 67% reduction in mental health symptoms compared to intake DSM 5 cross-cutting measure. Pt continuing to report anxiety about returning to work next week on a reduced schedule. Pt expressed concern that despite him feeling more mentally stable, his workplace hasn't made any changes. Problem #1 Problem Name:: Anxiety Status of Goals:: Obj 1 - partially met. Pt is able to identify calming skills like belly breathing, grounding, and 5 senses to help manage anxious symptoms. Pt struggles at times with using skills in the moment. Obj 2 - partially met. Per pt's DSM 5 cross cutting measure at review the scores indicate a 45% reduction in anxious symptoms. Team Recommendations:: team recommends continue current goal and objectives. Problem #2 Problem Name:: Depression Status of Goals:: Obj 1 - objective met. Pt is able to identify healthy coping skills like opposite action, exercise and thought challenge as skills to decrease depressive symptoms. Per DSM 5 cross cutting measure at review scores indicate a 67% reduction in depressive symptoms. Obj 2 - met. Pt has restarted his nightly self-care routine of washing his face and using face lotion. Pt also took time to go on a self-care retreat with is . Team Recommendations:: Team recommends continue current goal and objectives to show maintenance of skills while pt returns to work on a reduced schedule next week.
--- NOTE | 2020-11-24 09:00 | BH.SGPN.GN ---
Behaviors/Verbalizations/Mental Status: []Client alert and oriented, casually dressed and groomed. Eye contact good. Motor activity appropriate. Speech within normal limits. Affect congruent, mood euthymic. Thoughts linear, logical, no signs of hallucinations or delusions. Reviewed client?s symptom tracker, no risk for suicidal ideation, plan, or intent as of 11/24/20 Client Response/Progress/Benefit: [] Client responded well to session, attentive, providing supportive feedback, and willing to process with group. Client reports feeling ?happy? today and attributes this primarily to increased use of healthy coping skills such as improved self-care, mindfulness, and more active/honest communication with supports. Client discussed several mental health wins over the weekend which included spending time with friends, as well as practicing healthy boundary setting on Tuesday when purchasing items at the [employer]. 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 Shared current stressor as transitioning back to work this week however indicates being less anxious to do so than he expected. Reviewed several skills for managing his anxiety in the workplace. Appeared to benefit from group support and encouragement. Progress in improved consistency in use healthy coping mechanisms thought challenging skills, and healthy boundary setting. Will continue IOP tx to prevent decompensation, maintain mood stability, and continue to maintain gains as client returns to work. Narrative Note: []
--- NOTE | 2020-11-24 10:05 | BH.SGPN.GN ---
Behaviors/Verbalizations/Mental Status: []Client alert and oriented, casually dressed and groomed. Eye contact good. Motor activity appropriate. Speech within normal limits. Affect congruent, mood euthymic. Thoughts linear, logical, no signs of hallucinations or delusions. Client Response/Progress/Benefit: []Client engaged during session AEB client contributing thoughts throughout discussion and completing worksheet. Connected with discussion on crisis and how coping with external crises by using unhealthy coping skills could result in a personal crisis. Group reflected on the importance of having awareness of personal warning signs in order to prevent reaching crisis point. Group identified potential warning signs for crisis and client completed the personal warning signs worksheet. Client identified personal crisis warning signs to include: not taking care of personal hygiene, problems with memory, and isolating/avoiding others. Client benefited by increasing awareness of what leads to crisis and personal warning signs. Client will continue IOP to continue use of healthy skills, successfully transition back to work and prevent decompensation. Narrative Note: []
--- NOTE | 2020-11-24 10:08 | BH.SGPN.GN ---
Behaviors/Verbalizations/Mental Status: []Client alert and oriented, neatly dressed and groomed. Eye contact good. Motor activity appropriate. Speech within normal limits. Affect congruent, mood euthymic. Thoughts linear, logical, no signs of hallucinations or delusions Client Response/Progress/Benefit: []Client responded well to session as evidenced by client listening attentively to others and providing strategies during discussion. Client identified warning signs for crisis and gained further awareness of earliest warning signs. Client created a crisis action plan to help client better manage warning signs for crisis. Client?s action plan for not taking care of himself, problems with memory, isolating and avoiding included coping skills such as: opposite action, having a support hold him accountable, grounding, go for a walk, and talking to supports. Client stated wanting to also keep up with his nightly face routine to reduce stress and prevent crisis. Client appeared to benefit from creating a crisis action plan and increasing self-awareness. Client to continue IOP tx to reinforce healthy coping skills and promote mood stability that will help client return successfully to work. Narrative Note: []
--- NOTE | 2020-11-26 09:00 | BH.SGPN.GN ---
Behaviors/Verbalizations/Mental Status: []Client alert and oriented, neatly dressed and groomed. Eye contact good. Motor activity appropriate. Speech within normal limits. Affect congruent, mood overwhelmed. Thoughts linear, logical, no signs of hallucinations or delusions. Reviewed client?s symptom tracker, no risk for suicidal ideation, plan, or intent as of 11/26/20 Client Response/Progress/Benefit: C[]Client responded well to session, attentive and receptive to reframing. Client reports feeling determined this morning, but shared yesterday he struggled after his first day back to work. Client shared he worked 10 hours yesterday and found out that his staff scheduled an event that client was told was not going to happen. Client stated I found myself in a funk again and I didn't want to do my self-care. Client used opposite action which is progress and he also identified what he needs to do to make his mental health a priority at work. Client plans to talk with his staff tomorrow to discuss boundaries. Client reflected on his ability to bounce back quickly from yesterday. Client's scores for the daily symptom tracker were 0/5 for depressed mood, 1/5 for anxiety, and 1/5 for irritability. Client self-reports his mood and functioning has generally been better. Will continue IOP tx to promote gains and provide a supportive structure to help client return to work full-time. Narrative Note: []
--- NOTE | 2020-11-26 10:15 | BH.SGPN.GN ---
Behaviors/Verbalizations/Mental Status: []Eye contact is good. Motor activity is appropriate. Appearance is neat and casual. Speech is Appropriate. Mood is anxious and euthymic. Affect is congruent. Thoughts are linear and logical. No evidence of psychosis. Client Response/Progress/Benefit: []Pt was an active participant in group discussion and activity. Attentive during psychoeducation on factors that build resiliency AEB providing input, asking questions, and actively taking notes throughout. Worked with peers to define resilience and shared that to him resilience means ?bouncing back. Continuing to work on and nigel after goals despite setbacks?. Noted connecting with personal resilience examples provided by fellow participants. Pt along with peers also identified what could impact personal resilience, which included: environment, learned behaviors and learned coping skills, beliefs, habits, and past experiences. Pt shared beliefs that we can all learn and develop better resilience and in doing so improve our own ability to regulate our emotions. Pt benefited by increasing awareness on the role of resilience in mental health and factors that can help build resiliency. Will continue in IOP to promote mood stability and healthy coping skill application, as well as increase thought challenging capability. Narrative Note: []
--- NOTE | 2020-11-26 11:15 | BH.SGPN.GN ---
Behaviors/Verbalizations/Mental Status: []Client alert and oriented, nicely dressed, hygiene tended to. Eye contact good. Motor activity appropriate. Speech within normal limits. Affect congruent, mood euthymic.. Thoughts linear, logical, no signs of hallucinations or delusions. Client Response/Progress/Benefit: []Client responded well to session AEB contributing to discussion. Client participated in the discussion of how each resiliency component can help increase personal resiliency. Client engaged in activity, working cooperatively with group. Client?s goal to increase resilience is to avoid seeing crises as insurmountable problems. Client stated he will work on this by giving himself time to reflect when a crisis occurs to be more proactive versus being reactive. Pt seemed to benefit from identifying goal to improve her personal resilience. Will continue IOP to maintain gains, continue use of healthy coping and prevent decompensation. Narrative Note: []
--- NOTE | 2020-11-26 17:17 | BH.MDN_ITS ---
Multi-Disciplinary Note - Note 30-min Individual Time Started:: 12:25 Date: 11/26/20 Purpose of session/treatment goals addressed:: Purpose of session was to address goal 1 from MTP. Eye Contact:: Good Motor Activity:: Appropriate Appearance:: Neat Speech:: Appropriate Mood:: Anxious Affect:: Congruent Thoughts:: Linear, Logical, No evidence of hallucinations/delusions noted Staff Interventions:: thought challenging, strengths perspective, other - As sisted pt with preparing boundaries to set when goes back to work tomorrow. Client Response:: Client reported went back to work for the first time in four weeks yesterday. Client stated he ended up staying 10 hours at work, which is longer than the planned 8 hours he was supposed to be at work. Client reported he found out that his work had lied to him about cancelling an event while he was gone. Client stated the event is scheduled for next Tuesday. client reported he plans to let his staff know that he will not be helping them with that event. Pt reported after work he cried and felt defeated. Client stated he was planning to not do his bedtime self-care routine because was feeling so down. Client reported he was able to utilize thought challenge and opposite action to make himself do his bedtime routine. Client stated he cannot let going back to work ruin all the progress he has made. Client worked with therapist to identify his game plan for returning to work tomorrow. Client stated he will be bringing his highlighted job description to work tomorrow and letting his boss and team know that he will not be doing more than what is listed on the description. Client reviewed importance of setting clear boundaries with his bosses. Risks/Concerns:: Denies suicidal/homicidal ideation, plan or intention to date. Progress Toward Goals/Plan:: Progress noted with pt using opposite action and thought challenge when had desire to return to old unhealthy patterns last night. Pt continues to struggle with feeling unappreciated and used while at work which negatively impacts mood. Pt continue IOP to maintain gains, assist pt with transition back to work and prevent decompensation. Time Stopped:: 12:45
--- NOTE | 2020-11-28 09:00 | BH.SGPN.GN ---
Behaviors/Verbalizations/Mental Status: [] Eye contact is good. Motor activity is appropriate. Appearance is casual. Speech is Appropriate. Mood is euthymic. Affect is full. Thoughts are linear and logical. No evidence of psychosis. Reviewed daily check in sheet and no reports of suicidal ideations or intent. Client Response/Progress/Benefit: [] Pt was an active participant in group discussion. Attentive. Provided appropriate feedback. Emotion for today is empowered. Daily symptom tracker notes 04/15 for depression and agitation. Shared with the group that returning to work has been a significant stressor. He discussed work-related events which have caused distress and at one point called his spouse stating that he was going to walk out of work. He has insight that while he has been able to change himself through IOP and skills the environment at work continues to be unhealthy. Struggled with this however is motivated to begin searching for other possible opportunities. Despite being overwhelmed he is problem-solving and addressing unhealthy environment. Progress noted per pt report. Benefited from group support, encouragement, and feedback. Will continue in IOP to prevent decompensation, maintain gains, and help with transition back to full-time work. Narrative Note: []
--- NOTE | 2020-11-28 10:10 | BH.SGPN.GN ---
Behaviors/Verbalizations/Mental Status: []Client alert and oriented, neatly dressed and groomed. Eye contact good. Motor activity appropriate. Speech within normal limits. Affect congruent, mood euthymic and anxious. Thoughts linear, logical, no signs of hallucinations or delusions. Client Response/Progress/Benefit: []Client responded well to session, attentive and participating in discussion. Participated in discussion of things that can keep people feeling trapped or stuck in life including; avoidance, self-doubt, unhealthy coping skills, and fear of failure. Group discussed the connection between thoughts, emotions, and behaviors as well as how negative thinking can keep a person stuck. Client attentive during psychoeducation on maintenance cycles. Client able to identify negative thoughts that have kept client stuck which included ?you?re stuck, you have to do this job, and you?re getting paid for this work.? Appeared to benefit from gaining awareness of how negative thoughts reinforce mental health symptoms and keep people stuck. Will continue IOP tx to reinforce healthy coping skills and assist in client?s transition to full-time employment. Narrative Note: []
--- NOTE | 2020-11-28 11:12 | BH.SGPN.GN ---
Behaviors/Verbalizations/Mental Status: []Client alert and oriented, casually dressed and groomed. Eye contact good. Motor activity appropriate. Speech within normal limits. Affect congruent, mood anxious and euthymic. Thoughts linear, logical, no signs of hallucinations or delusions. Client Response/Progress/Benefit: []Client responded well to session, contributing to discussion and providing supportive feedback. Client appeared to connect with maintenance cycles and recognized how negative thinking can keep a person stuck. Client identified a negative thought that has kept him stuck. Client shared going through the program has helped client be more mindful of his distorted thoughts. Client's thought was You have to do all this work. Client able to connect how this thought maintains anxiety cycles and reinforces poor self-care and unrealistic expectations of self. Client reported when he thinks this way, he feels suffocated and trapped and becomes ?snappy? with others. Client able to reframe the thought by saying I can do the priorities first and then what I can from there Client shared this thought would improve mental health because it would help client set better boundaries with himself and others as well as maintain more realistic expectations. Client appeared to benefit from practicing challenging negative thinking. Will continue IOP tx to maintain gains, further promote healthy change behaviors, and continue to improve thought challenging. Narrative Note: []
--- NOTE | 2020-12-01 09:00 | BH.SGPN.GN ---
Behaviors/Verbalizations/Mental Status: [] Eye contact is good. Motor activity is appropriate. Appearance is neat. Speech is Appropriate. Mood is depressed/irritable. Affect is congruent. Thoughts are linear and logical. No evidence of psychosis. Reviewed daily check in sheet and no reports of suicidal ideations or intent. Client Response/Progress/Benefit: [] Pt participated at times during the group discussion. Attentive. Provided appropriate feedback. Daily symptom tracker notes 04/15 for depression and agitation. Mental health win included self-care and practicing skill over the weekend. Pt reports that he walked 3 miles. Set boundaries. Increased insight and awarness of the benefits of letting go. Primary stressor is work which he does not look forward too although he has changed his mindset which has helped him manage the daily stressors. Emotion for today is empowered. Progress noted per pt report. Benefited from group support, encouragement, and feedback. Narrative Note: []
--- NOTE | 2020-12-01 10:10 | BH.SGPN.GN ---
Behaviors/Verbalizations/Mental Status: []Client alert and oriented, casually dressed and groomed. Eye contact good. Motor activity appropriate. Speech within normal limits. Affect congruent, mood euthymic. Thoughts linear, logical, no signs of hallucinations or delusions. Client Response/Progress/Benefit: []Client receptive to session, providing input at times and listened attentively to peers. Provided input as the group brainstormed the positive and negative aspects of stress on physical and mental health. Group did well to identify the benefits of stress as well as the impact of distress on performance and mental health. Client identified top stressors such as work, 's grandma's health issues and supporting during his work issues. Client reports his stress jar is ?75% full? 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 client seemed to benefit from increasing self-awareness of current stressors. Recommended to continue IOP tx to promote use of healthy coping skills, successfully transition back to work and prevent decompensation.
--- NOTE | 2020-12-01 11:15 | BH.SGPN.GN ---
Behaviors/Verbalizations/Mental Status: []Client alert and oriented, lety and casually dressed and groomed. Eye contact good. Motor activity appropriate. Speech within normal limits. Affect congruent, mood euthymic. Thoughts linear, logical, no signs of hallucinations or delusions. Client Response/Progress/Benefit: []Client engaged in session AEB listening attentively to others and providing input throughout discussions. Client was an active participant in challenge activity and did well to use calming and healthy communication skills in the moment to help group with problem solving while in high stress situations. Client remained attentive during discussion about the 4 A's of managing stress and expressed connecting with the various benefits of each. Client reported he has struggled with the boundaries portion of avoidance in the past. Shared he would like to work on the skill of adapting to his current work environment and accept that he may need to change employers if things do not change long-term. Client stated this will be helpful to decrease stress because he often struggles to remind himself he is not responsible for others and prevents himself from making necessary changes due to his fixed mindset. Client seemed to benefit from increased awareness of the impact of stress on mental health and increasing repertoire of stress management strategies. Will continue IOP tx to prevent decompensation, continue to promote thought challenging, and healthy coping skills. Narrative Note: []
--- NOTE | 2020-12-03 09:05 | BH.SGPN.GN ---
Behaviors/Verbalizations/Mental Status: [] Pt eye contact good, neatly dressed, motor activity appropriate, speech normal rate and tone, mood anxious, congruent affect, thoughts linear and intact, no evidence of delusions or hallucinations. Reviewed client?s symptom tracker, no signs of suicidal ideation, plan, or intent as of today. Client Response/Progress/Benefit: []Pt responded well to session AEB by listening to others and sharing thoughts and feelings. Pt shared currently stressed that his is in the hospital waiting for bed availability to be transferred to [facility]. Pt stated the hospital does not know what is wrong with his which is why he is being transferred. Pt reported mental health positive as not beating self up for not going to work yesterday. Pt stated he used self-talk to remind himself that his work chose to do an event against his recommendation so it is not his responsibility to be there for the event. Noted additional mental health positive as completing self-care routine before bed. Progress noted with pt using skills to help manage unexpected life stressor. Pt to continue IOP to maintain gains, assist pt with successful transition back to work and prevent decompensation. Narrative Note: []
--- NOTE | 2020-12-03 10:16 | BH.SGPN.GN ---
Behaviors/Verbalizations/Mental Status: []Client alert and oriented, neat and casually dressed and groomed. Eye contact good. Motor activity appropriate. Speech within normal limits. Affect congruent, mood euthymic. Thoughts linear, logical, no signs of hallucinations or delusions. Client Response/Progress/Benefit: []Pt was an active participant AEB taking notes and providing input throughout group discussion, as well as completed anger worksheet. Group worked together to define anger and discussed the ways anger can impact one internally and externally. Pt reported that an individual?s anger expression can look different in different situations and not finding healthy ways to express anger can result in more internalized anger. Completed the iceberg exercise and identified emotions that tend to ?live under the surface? of pt?s own anger include: disappointment, loss of control, guilt, unexpected changes at work, and the unknown. Pt also gained awareness of their typical responses to anger which included: being rude, making jokes, ?bear noise?, or a deep breath. Benefited from group by increasing understanding of the impact of anger on mental health. Recommended continued tx to continue to improve emotion regulation skills, prevent decompensation, and continue to promote healthy boundaries. Narrative Note: []
--- NOTE | 2020-12-03 11:20 | BH.SGPN.GN ---
Behaviors/Verbalizations/Mental Status: []Client alert and oriented, neatly dressed and groomed. Eye contact fair. Motor activity appropriate. Speech within normal limits. Affect congruent, mood euthymic and anxious. Thoughts linear, logical, no signs of hallucinations or delusions. Client Response/Progress/Benefit: []Pt was engaged throughout AEB participating in discussion and taking notes. Pt did well to lead his group using assertive communication and receiving feedback. Contributed as group brainstormed healthy coping skills for better managing anger which included: deep breathing, counting, exercise, DDD, and looking at the consequences of responding in anger. Pt also gained awareness of costs of unmanaged anger. Pt appeared to benefit from identifying different techniques to manage anger as well as gaining awareness of the costs of anger. Pt selected looking at the costs of responding in anger to better manage anger. Will continue IOP tx for one more day to reinforce healthy coping skills and establish aftercare plan. Narrative Note: []
--- NOTE | 2020-12-05 10:05 | BH.SGPN.GN ---
Behaviors/Verbalizations/Mental Status: []Eye contact is good. Motor activity is appropriate. Appearance is neat. Speech is Appropriate. Mood is euthymic. Affect is congruent. Thoughts are linear and logical. No evidence of psychosis. Client Response/Progress/Benefit: []Pt was an active participant in group discussion AEB taking notes and providing input throughout. Attentive during psychoeducation reviewing internal and external obstacles and provided examples throughout. Participated in the reflection activity in which clients andreas pictures depicting their current and desired reality and shared with the group. Pt reflected on his mental health recovery journey in IOP focusing on his growth in changing perspective and setting boundaries. Pt also reflected on strengths he has that will help pt maintain progress such as humor, IOP ?toolkit,? and valuing his own opinion. Benefited from group by increasing current awareness and expectations for progress. Will discharge from IOP tx today as client has accomplished his tx goals and no longer meets criteria for IOP level of care. Narrative Note: []
--- NOTE | 2020-12-05 11:10 | BH.SGPN.GN ---
Behaviors/Verbalizations/Mental Status: []Client alert and oriented, casually dressed and groomed. Eye contact good. Motor activity appropriate. Speech within normal limits. Affect congruent. Mood anxious.. Thoughts linear, logical, no signs of hallucinations or delusions. Client Response/Progress/Benefit: []Client engaged during activity and provided ideas on how to cope with internal barriers that keep clients stuck from moving towards goals. Client identified personal barriers to desire reality include: limited boundaries, difficulty saying no, and willingness to stay stuck. Client reported he wants to decrease anxiety by staying in the moment and taking it one day at a time. Benefited from group by identifying obstacles and solutions to desired reality. Will continue IOP tx to prevent decompensation, increase healthy coping and challenge distorted thoughts. Narrative Note: []
--- NOTE | 2020-12-05 15:27 | BH.DS_ITS ---
Discharge Summary - Demographics Discharge Date: 12/05/20
--- NOTE | 2020-12-05 15:27 | BH.DS ---
Discharge Summary - Demographics Discharge Date: 12/05/20
--- NOTE | 2020-12-05 17:19 | BH.MDN_ITS ---
Multi-Disciplinary Note - Note 45-min Individual Time Started:: 08:45 Date: 12/05/20 Purpose of session/treatment goals addressed:: Purpose of session was to review treatment progress, strategies to maintain success and solidify aftercare plans. Eye Contact:: Good Motor Activity:: Appropriate Appearance:: Neat Speech:: Appropriate Mood:: Euthymic Affect:: Full Thoughts:: Linear, Logical, No evidence of hallucinations/delusions noted Staff Interventions:: discharge planning, other - reviewed treatment progress and identified strategies to maintain success. Client Response:: Pt reported returning to work has been a challenge for him because his work place has stayed the same and he has changed in many ways. Pt stated he has been doing well with setting boundaries with his work place so he doesn't get unrealistic set of job responsibilities. Pt reported feeling bittersweet today is his last day in [facility]. Pt identified treatment progress includes: improved mood, positive outlook, getting back to things he used to enjoy, exercising, setting boundaries and feeling healthier. Pt identified strategies to help him maintain success include: doing a monthly check-in, setting boundaries, daily self-care routine, exercise, breathing and mindfulness. Pt stated for aftercare he will be doing the aftercare group at [facility] and return to his outpatient counselor Siobhan Monge. Risks/Concerns:: Denies suicidal ideation, plan or intention. Progress Toward Goals/Plan:: Pt has demonstrated signfiicant treatment progress since starting [facility]. Pt's anxiety and depression has significantly decreased. Pt has increased self-awareness of warning signs, how to challenge negative thought patterns and improved reperotire of healthy coping skills to help him navigate difficult times. Plan is for pt to discharge from [facility] today. Pt will follow up with outpatient therapist Siobhan and attend [facility] aftercare program once a week. Time Stopped:: 09:30
== END 2020-12-05 13:05 | disposition home or self-care (01) ==
LOC: BHIOP 08:28
PROVIDERS: PCP Internal Medicine; Referring Provider Psychiatry & Neurology Psychiatry; Visit Provider Psychiatry & Neurology Psychiatry
DX: F41.1 Generalized anxiety disorder (principal); F33.1 Major depressive disorder, recurrent, moderate; G47.33 Obstructive sleep apnea (adult) (pediatric); Z79.899 Other long term (current) drug therapy
CPT/HCPCS: S9480; 90832; 90834; 90853

== ENCOUNTER 2020-12-18 09:00 | Outpatient (RCR) | payer OTHER, SELFPAY ==
--- NOTE | 2020-12-18 10:54 | BH.MTP_ITS ---
Master Treatment Plan - Patient Information Program Physician:: Dr. Lisa Noble Primary Therapist:: Germania Alarcon [facility] - Psychiatric Diagnoses Psychiatric Diagnoses:: Generalized anxiety disorder F41.1; Major depressive disorder, recurrent, moderate; Obstructive sleep apnea Diagnosis Code(s):: F 41.1 - Estimated LOS Estimated LOS (in weeks):: 12 Problem/Goal #1 - Problem/Goal #1 Stated Goal:: client will maintain or see a reduction in symptoms AEB client score on the DSM 5 cross-cutting measure and improve client's daily functioning. - Objectives Objective #1 Stated Objective: Client will continue to consistently apply healthy coping skills to maintain progress made in IOP tx. Interventions: Through group therapy, client will review warning signs and triggers as well as healthy coping skills learned in IOP tx to successfully maintain gains while transitioning into outpatient therapy. Discharge Criteria: Client will have accomplished this goal when client's score on the DSM-5 cross-cutting measure has either maintained or reduced over a 12 week period. Target Date: 03/12/21 Review Date: 01/15/21 Status: open Objective #2 Stated Objective: Client will learn and utilize 2-3 maintenance strategies to prevent decompensation. Interventions: Through group therapy, client will be provided with education on healthy maintenance behaviors, relapse prevention techniques, and healthy coping strategies. Discharge Criteria: Client will have accomplished this goal when can report using at least 2 maintenance skills to prevent decompensation. Target Date: 03/12/21 Review Date: 01/15/21 Status: open
--- NOTE | 2020-12-18 14:00 | BH.SGPN.GN ---
Behaviors/Verbalizations/Mental Status: []Client alert and oriented, neatly dressed and groomed. Eye contact good. Motor activity appropriate. Speech within normal limits. Affect congruent, mood euthymic. Thoughts linear, logical, no signs of hallucinations or delusions. Client Response/Progress/Benefit: []Pt receptive of session, engaged throughout. Stated since returning to his job after IOP he has come to the realization that his workplace is not going to be changing and he doesn't know how much longer he can stay there. Pt reported he has applied for several new job opportunities. Stated he has continued his nighttime self-care routine. Receptive of discussion on personal accountability and its importance in maintaining mental health stability. Pt worked cooperatively with group to identify benefits of maintaining personal accountability. Engaged in brainstorming strategies for improving ability to hold themselves accountable. Pt identified that for homework he will practice using accountability by highlighting what he has accomplished from his to-do list once a week. Pt seemed to benefit from support from peers and increasing understanding of personal accountability benefits and strategies. Pt's first day in aftercare. Will continue IOP aftercare group to maintain gains and prevent decompensation.
--- NOTE | 2021-01-01 14:00 | BH.SGPN.GN ---
Behaviors/Verbalizations/Mental Status: []Client alert and oriented, neatly dressed. Eye contact good. Motor activity appropriate. Speech within normal limits. Affect constricted, mood overwhelmed. Thoughts linear, logical, no signs of hallucinations or delusions. Client Response/Progress/Benefit: []Pt responded well to session AEB pt providing input during discussion and listening attentively to peers. Pt reported feeling stressed today sharing he is overwhelmed by work, however pt plans to quit his job and has been doing well with not taking work home. Pt shared he feels guilty about setting these boundaries at work, but pt is reminded by supports that he is doing the right thing. Pt engaged in discussion about self-love. Connected with others that although self-care is challenging, it is vital for mental health wellness. Group discussed barriers they have faced that prevented self-love. Pt reviewed the 30 ways to improve self-love and selected two strategies to practice. Pt seemed to benefit from reviewing treatment progress and stressors as well as learning about how to increase self-love. Pt will continue IOP aftercare to reinforce healthy coping skills and further improve mood stability. Narrative Note: []
--- NOTE | 2021-01-08 14:00 | BH.SGPN.GN ---
Behaviors/Verbalizations/Mental Status: []Client alert and oriented, neatly dressed and groomed. Eye contact good. Motor activity appropriate. Speech within normal limits. Affect congruent, mood euthymic. Thoughts linear, logical, no signs of hallucinations or delusions. Client Response/Progress/Benefit: []Client responded well to session, client?s emotion today is ?sad, but hopeful and optimistic?. Shared he resigned from his job today as he was given an offer at another company which he feels excited about. Indicated this will be a better fit as he already feels more capable of advocating for his mental health needs and setting boundaries. However, is sad as he will no longer be able to attend aftercare due to changes in his schedule. Reflected on areas of progress such as improved confidence and ability to say ?No? to others. Receptive of discussion on self-talk and its influence in maintaining long-term mental health stability. Contributed to strategies for improving effective creation and application of believable personal affirmations. Client created several affirmations and shared one with the group. Client shared plans to display affirmation of ?I have the right to say ?No?.? to remind him that he is allowed to set boundaries. Client shared this will help combat negative self-talk and guilt associated with setting healthy boundaries. Client to discharge from aftercare and continue with outpatient level of care. Narrative Note: []
--- NOTE | 2021-01-08 14:29 | BH.DS_ITS ---
Discharge Summary - Demographics Date of Admission:: 12/18/20 Discharge Date: 01/08/21 Presenting Problems at Admission:: Client discharged from IOP tx and transitioned to IOP aftercare to maintain gains client made in IOP. At admission to IOP aftercare, client?s mood and functioning had improved, Client had returned to work after IOP discharge and this was an ongoing stressor for client. At discharge from IOP client was still experiencing mild anxiety and was struggling at times with setting boundaries at work and with family. Discharge Diagnoses:: Generalized anxiety disorder F41.1; Major depressive disorder, recurrent, moderate; Obstructive sleep apnea Reason for Discharge:: Client voluntarily discharged from IOP aftercare due to getting ready to start a new job next week. Client report he is functioning well and his mood has generally been better. - Treatment Progress During Treatment & Response: Client was in IOP aftercare for a few sessions, but discharged before fully completing the program. Therefore, client did not complete the discharge DMS-5. Client reported the biggest progress he made in IOP and in aftercare was gaining the courage to quit his job. Client reported consistent use of healthy coping skills throughout IOP tx. Issues Still to be Addressed:: Client can continue to benefit from outpatient counseling to reinforce healthy coping skills, continue to work on boundary setting, and to further increase mood stability. Discharge Recommendations/Instructions:: Client will continue seeing his o utpatient therapist, Siobhan Monge, for individual counseling. Client also sees his PCP for medication management. Discharge Handout: Complete Discharge Handout with client on aftercare options and continuity of care.
== END 2021-01-09 07:00 | disposition home or self-care (01) ==
LOC: BHOG 09:00
PROVIDERS: PCP Internal Medicine; Referring Provider Psychiatry & Neurology Psychiatry; Visit Provider Psychiatry & Neurology Psychiatry
DX: F41.1 Generalized anxiety disorder (principal); F33.1 Major depressive disorder, recurrent, moderate; G47.33 Obstructive sleep apnea (adult) (pediatric)
CPT/HCPCS: 90853

== ENCOUNTER → 2021-08-25 | Outpatient (CLI) | payer OTHER, SELFPAY ==
--- NOTE | 2021-08-25 | LES_PTH ---
PATIENT: ASTON FISH LOC: [facility] U#:[id number] AGE/SX: 46/M ROOM: RE08/25/[address]: Dr. Reza Rock MD : 1975 BED: DIS: 08/25/2021 SPEC #: [id number] RECD: 08/25/21 15:03 STATUS: DANA VAZQUEZDoug #: [id number] JORGE: 08/25/21 00:[address]: Reza Rock DEPT: SURGICAL PATHOLOGY RECD BY: Satish White ENTERED: 08/26/21 09:17 SP TYPE: Lesion OTHR DR: Francisco Javier Osorio MD Tissues: Skin of eyelid, NOS Procedures: Surgery Specimen Level IV HEADER OPERATION: Left upper lid biopsy PRE-OP DIAGNOSIS: Likely inclusion cyst TISSUE SUBMITTED: Left upper eyelid lesion MICROSCOPIC DIAGNOSIS Left upper eyelid lesion, biopsy: Consistent with eccrine cyst. AM:marcos 08/27/2021 MICROSCOPIC DESCRIPTION Slides are reviewed. GROSS DESCRIPTION Received in fixative is one container labeled with the patient's name and designated MY. The specimen consists of a fragment of rosario-white skin measuring 0.3 x 0.1 x 0.1 cm. The specimen is totally submitted in one cassette. / SJ:rg 08/26/2021 TC:5 CPT: 21218
== END | disposition home or self-care (01) ==
PROVIDERS: PCP Internal Medicine; Referring Provider Ophthalmology; Visit Provider Ophthalmology
DX: H02.9 Unspecified disorder of eyelid (principal)
CPT/HCPCS: 88305

== ENCOUNTER 2023-01-29 21:01 | Emergency (ER) | payer OTHER, SELFPAY ==
[2023-01-29 21:02] VITALS: BP 131/100; PULSE 86; RESP 15; TEMP 36.3; O2SAT 97; BMI 30.4
--- NOTE | 2023-01-29 21:20 | CT_ITS ---
STUDY: CT ABDOMEN AND PELVIS WITH CONTRAST REASON FOR EXAM: Male, 47 years old. LLQ pain RADIATION DOSAGE (If Supplied By Facility): CTDIvol = ( 19.83 ) mGy, DLP = ( 1915.78 ) mGycm TECHNIQUE: Transaxial images were obtained from the dome of the diaphragm to the symphysis pubis without oral contrast. IV 100mL Isovue-370 was administered. Sagittal and coronal images were reconstructed. Individualized dose optimization techniques were used for this CT. COMPARISON: None. FINDINGS: The visualized lung bases are unremarkable. The visualized portions of the heart are within normal limits. There is decreased attenuation of the liver consistent with steatosis. Normal gallbladder and extrahepatic biliary system. Normal spleen. Normal pancreas. Normal bilateral adrenal glands. No hydronephrosis or solid renal masses. Normal visualized stomach. Normal small intestine. There are multiple colonic diverticula consistent with diverticulosis. There is non-visualization of the appendix. Tortuosity of the abdominal aorta. Normal inferior vena cava. Normal retroperitoneum. Urinary bladder is not well distended. Circumferential wall thickening of the urinary bladder with mild adjacent stranding. Normal abdominal wall. There are diffuse degenerative changes of the visualized lumbar spine. Sclerotic lesion of the left ilium likely representing a malignant, doubtful significance. Degenerative arthrosis of the bilateral SI joints. CT/Abdomen/Pelvis W IV Cont ONLY IMPRESSION: 1. Circumferential wall thickening of the urinary bladder with adjacent stranding suggesting cystitis. Recommend correlating with urinalysis. 2. Diverticulosis without evidence of diverticulitis. 3. Chronic changes, as above. Electronically Signed: Eliceo Villatoro MD (Brooks) at 22:00 EDT ,
--- NOTE | 2023-01-29 21:21 | ED.VIS.GI ---
HPI HPI - GI History of Present Illness Chief Complaint: Abd Pain Narrative Narrative: 47-year-old male presents with his because of left lower quadrant abdominal pain that began yesterday evening. He states that his symptoms began after dinner around 8 PM. He started developing left flank and left lower quadrant pain. He did have a bowel movement with a small amount of rectal bleeding that happened last evening and then again this morning. He became nauseated today. He is complaining of pain in the left lower quadrant that is more sharp and stabbing in nature. Past abdominal surgery includes remote appendectomy. He denies any dysuria or hematuria. No fevers or chills. No vomiting or hematemesis. He states his stool was normal in consistency and color. No exacerbating or alleviating factors to his left lower quadrant abdominal pain. [facility] Medical History Generalized anxiety disorder Hernia Major depressive disorder, recurrent, moderate KEYLA on CPAP Home Medications cetirizine 10 mg capsule (Zyrtec) 10 mg PO DAILY 04/02/18 [History Last Taken 09/19/18] fluticasone propionate 50 mcg/actuation nasal spray,suspension 2 sprays IH DAILY 09/20/18 [History Last Taken 09/19/18] alprazolam 0.25 mg tablet (Xanax) 0.25 mg PO DAILY PRN PRN Anxiety 10/29/20 [History Last Taken Unknown] duloxetine 30 mg capsule,delayed release (Cymbalta) 30 mg PO DAILY 10/29/20 [History Last Taken Unknown] dicyclomine 20 mg tablet 20 mg PO BID PRN abdominal pain #20 tabs 01/29/23 [Rx Last Taken Unknown] ondansetron 4 mg disintegrating tablet 4 mg PO Q6H PRN nausea and vomiting #20 tabs 01/29/23 [Rx Last Taken Unknown] Allergy/AdvReac Type Severity Reaction Status Date / Time prochlorperazine AdvReac Other Verified 01/29/23 21:06 [From Compazine] Surgical History History of appendectomy History of hernia repair History of tonsillectomy Social History Smoking Status: Never smoker ROS ROS ED ROS Narrative Constitutional: No fever, no chills. HEENT: No sore throat. No neck pain. No loss of vision. No rhinorrhea. Cardiovascular: No chest pain. No palpitations. No pedal edema. Respiratory: No cough, no shortness of breath. Abdominal: Left lower quadrant abdominal pain. Positive nausea. No vomiting. Positive rectal bleeding. Genitourinary: No dysuria. No hematuria. Musculoskeletal: No myalgias. No arthralgias. Neurologic: No headaches. No dizziness. No lightheadedness. Skin: No rash. No change in color. Psychiatric: No depression. No anxiety. EXAM Physical Exam Narrative Exam Narrative: Afebrile. Vital signs noted. HEENT: Normocephalic. Atraumatic. PERRL, EOMI. Neck soft and supple. No point tenderness or step off. Cardiovascular: Regular rate and rhythm. No murmurs, rubs, or gallops appreciated. Respiratory: No tachypnea. Lungs clear to auscultation bilaterally. Gastrointestinal: Abdomen soft, mild tenderness in the left lower quadrant with normoactive bowel sounds. No rebound or guarding. Neurological: Awake. Alert. Nonfocal, nonlateralizing. Skin: No rash. Normal color. No pallor. Musculoskeletal: No pedal edema. Full range of motion extremities. Const Vital Signs: 01/29/23 21:02 Temperature 97.4 F L Temperature Source Temporal Pulse Rate 86 Respiratory Rate 15 Blood Pressure 131/100 H Blood Pressure Mean 110 Pulse Ox 97 Oxygen Delivery Method Room Air MDM MDM MDM Narrative Medical decision making narrative: In the differential diagnosis is diverticulitis with diverticular bleed versus AV malformation versus ureterolithiasis. I have lower suspicion for kidney stone as the history and physical is not suggestive of this. I do feel CT imaging is indicated. I will perform a CBC and CMP as well along with urinalysis. Patient declined analgesics here in the emergency department but he will be bolused normal saline 1 L intravenously and administered ondansetron for his nausea. I reviewed the patient's laboratory work and he has a normal white count of 6.4, hemoglobin normal at 14.0, hematocrit 42.2, platelet count normal at 259. In review of his CMP, it is grossly normal. Sodium normal at 141 with potassium 3.7, chloride 105, BUN normal at 16 with a creatinine of 1.05. Glucose is elevated appropriately at 110 with a normal anion gap of 5. LFTs are grossly unremarkable. Urine is negative for infection with 0 WBCs, negative nitrites and negative leukocytes. Of significance was a CT scan with IV contrast which showed diverticulosis without evidence of diverticulitis. It did comment on circumferential bladder wall thickening with possible stranding and correlation with urinalysis. As his UA shows no evidence of infection, I do not feel that antibiotics are indicated. Regarding his rectal bleeding, rectal examination was deferred as he has normal hemoglobin, and he has no active bleeding. He may have an internal hemorrhoid, but I do think he probably has more of a diverticular bleed versus AV malformation. He was referred to Dr. Avilez with gastroenterology for probable endoscopy/colonoscopy. He was given Bentyl here for his abdominal pain, but I do think he has more of a nonspecific abdominal pain. I do not feel that antibiotics are indicated for diverticulitis or colitis with a negative CT scan. He was given prescriptions for Zofran and Bentyl and told to follow-up with gastroenterology and/or his primary care provider. I do not feel he requires observation or admission at this time. He is to return with increased rectal bleeding, new or worsening symptoms. Patient and are agreeable to the plan. Disposition is discharged home in stable condition. History & Record Review Discussion w/independent historian: Patient Additional record(s) reviewed:: Prior ED visit and Prior labs Lab Data Attestation: I reviewed the patient's lab results. Labs: Laboratory Results - last 24 hr 01/29/23 01/29/23 21:22 21:35 WBC 6.4 RBC 4.87 Hgb 14.0 Hct 42.2 MCV 86.7 MCH 28.7 MCHC 33.2 RDW Std Deviation 39.7 RDW Coeff of Francie 12.6 Plt Count 259 MPV 8.8 Immature Gran % (Auto) 0.300 Neut % (Auto) 47.0 Lymph % (Auto) 42.7 H [place] % (Auto) 7.3 Eos % (Auto) 2.2 Baso % (Auto) 0.5 Absolute Neuts (auto) 3.0 Absolute Lymphs (auto) 2.74 Nucleated RBC % 0 Sodium 141 Potassium 3.7 Chloride 105 Carbon Dioxide 31.0 Anion Gap 5 BUN 16 Creatinine 1.05 Estim Creat Clear Calc 89.80 Est GFR (MDRD) Af Amer 97 Est GFR (MDRD) Non-Af 80 BUN/Creatinine Ratio 15.2 Glucose 110 H Calcium 8.8 Total Bilirubin 0.50 AST 20 ALT 50 Alkaline Phosphatase 65 Total Protein 7.2 Albumin 3.5 Globulin 3.7 Albumin/Globulin Ratio 0.9 Urine Color Yellow Urine Clarity Clear Urine pH 7.0 Ur Specific [place] 1.010 Urine Protein Negative Urine Glucose (UA) Normal Urine Ketones Negative Urine Occult Blood Negative Urine Nitrite Negative Urine Bilirubin Negative Urine Urobilinogen Normal Ur Leukocyte Esterase Negative Urine RBC 0 SEEN Urine WBC 0 SEEN Ur Squamous Epith Cells 0 SEEN Urine Bacteria 0 SEEN Urine Mucus 0 SEEN Radiography Diagnostic Testing: Clinical Impression(s) from Imaging Studies Abdomen/Pelvis CT 01/29/23 21:20 IMPRESSION: 1. Circumferential wall thickening of the urinary bladder with adjacent stranding suggesting cystitis. Recommend correlating with urinalysis. 2. Diverticulosis without evidence of diverticulitis. 3. Chronic changes, as above. Electronically Signed: Eliceo Villatoro MD ([place]) at 22:00 EDT Reading Location ID and State: [facility] / [place] , Service support , Discharge Plan Triage Chief Complaint: Abd Pain ED Provider: Ian Mendez Dx/Rx/DC Orders Clinical Impression: Abdominal pain, LLQ, Diverticulosis, Bladder wall thickening, Rectal bleeding Instructions: ED Pain, Acute, Uncertain Cause, ED Lower GI Bleeding (Stable), ED Abdominal Pain Unkn Cause Male..., ED Diverticulosis Prescriptions: New dicyclomine 20 mg tablet 20 mg PO BID PRN (Reason: abdominal pain) Qty: 20 0RF ondansetron 4 mg tablet,disintegrating 4 mg PO Q6H PRN (Reason: nausea and vomiting) Qty: 20 0RF No Action Zyrtec 10 MG capsule 10 mg PO DAILY fluticasone propionate 1 SPRAY spray,suspension 2 sprays IH DAILY Patient Comments: Use 2 Sprays in each nostril once daily. Rinse mouth after use. duloxetine [Cymbalta] 30 mg Capsule,Delayed Release(Dr/Ec) 30 mg PO DAILY alprazolam [Xanax] 0.25 mg Tablet 0.25 mg PO DAILY PRN PRN (Reason: Anxiety) Primary Care Provider: Francisco Javier Osorio Referrals: Friend,DO Roberto [Med Staff - Active Staff] - As soon as possible Francisco Javier Osorio MD [[facility]] - 3-5 Days if not improving Disposition Disposition: Home, Self Care
[2023-01-29] MEDS: Ondansetron 4 MG/2 ML Vial IV (21:27)
[2023-01-29] MEDS: 0.9% Normal Saline (1000mL) 1,000 ML 1000 ML IV (21:27)
[2023-01-29 21:31] LABS: Absolute Lymphocyte Count 2.74 X10^3/uL (0.83-4.51); Basophil# 0.03 X10^3/uL; Basophil% 0.5 % (0-1); Eosinophil# 0.14 X10^3/uL; Eosinophils% 2.2 % (0-5); Hematocrit 42.2 % (40-54); Lymphocyte # 2.74 X10^3/ul (0.83-4.51); Lymphocyte % 42.7 % (19-41); Mean Corp Hgb Conc 33.2 g/dL (32-36); Mean Corpuscular Hgb 28.7 pg (27.0-32.0); Mean Corpuscular Volume 86.7 fL (80-94); Mean Platelet Vol. 8.8 fl (6.2-12.0); Monocyte# 0.47 X10^3/uL; Monocyte% 7.3 % (0-10); NRBC Flagged by Analyzer 0 % (0-5); Neutrophil # 3.01 X10^3/uL (2.7-7.7); Platelet Count 259 K/mm3 (150-450); RBC Distribution Width CV 12.6 % (11.6-14.6); RBC Distribution Width SD 39.7 fl (35.1-43.9); Red Blood Count 4.87 M/mm3 (4.6-6.2); White Blood Count 6.4 K/mm3 (4.4-11.0)
[2023-01-29 21:42] LABS: Bacteria 0 SEEN /hpf (None Seen); Mucous, Urine 0 SEEN /hpf (<or=2+); Red Blood Cells-Urine 0 SEEN /hpf (0-5); Squamous Epithelial Cells - UA 0 SEEN /hpf (0-5); White Blood Cells 0 SEEN /hpf (0-5)
[2023-01-29 21:51] LABS: Color, Urine Yellow (Yellow); Glucose, Dipstick Normal (Normal); Ketone-Dipstick Negative (Negative); Leukocyte Esterase-Dipstick Negative /ul (Negative); Nitrite-Dipstick Negative (Negative); Occult Blood-Urine Negative /ul (Negative); Protein-Dipstick Negative (Negative); Urine Bilirubin Dipstick Negative (Negative); Urine Clarity Clear (Clear); Urine Urobilinogen Normal (Normal)
[2023-01-29 22:03] LABS: ALB/GLOB Ratio 0.9 RATIO (0.9-2.4); AST(SGOT) 20 U/L (15-37); Alanine Aminotransfer ALT/SGPT 50 U/L (16-61); Albumin, Serum 3.5 g/dL (3.2-5.0); Alkaline Phosphatase 65 U/L (45-117); Anion Gap 5 (5-15); BUN 16 mg/dL (7-18); BUN/Creat Ratio 15.2 RATIO (10-20); Calcium,Total 8.8 mg/dL (8.5-10.1); Chloride 105 mmol/L (98-107); Creatinine, Serum 1.05 mg/dL (0.70-1.30); EST Glomerular Filtration Rate 80 mL/min (>60); Est Glom Filt Rate - Afr Amer 97 mL/min (>60); Globulin 3.7 g/dL (2.2-4.2); Glucose 110 mg/dL (74-106); Potassium 3.7 mmol/L (3.5-5.1); Protein, Total 7.2 g/dL (6.4-8.2); Sodium Level 141 mmol/L (136-145)
[2023-01-29] MEDS: Dicyclomine 10 MG Capsule 20 MG PO (22:42)
[2023-01-29 23:02] VITALS: BP 131/91; PULSE 74; RESP 14; O2SAT 97
== END 2023-01-29 23:08 | disposition home or self-care (01) ==
PROVIDERS: Emergency Provider Emergency Medicine; PCP Internal Medicine; Visit Provider Emergency Medicine
DX: K57.91 Diverticulosis of intestine, part unspecified, without perforation or abscess with bleeding (principal); F33.1 Major depressive disorder, recurrent, moderate; R10.32 Left lower quadrant pain; K62.5 Hemorrhage of anus and rectum; R93.41 Abnormal radiologic findings on diagnostic imaging of renal pelvis, ureter, or bladder; R73.9 Hyperglycemia, unspecified; R11.0 Nausea; G47.33 Obstructive sleep apnea (adult) (pediatric); F41.1 Generalized anxiety disorder; Z79.899 Other long term (current) drug therapy; Z90.49 Acquired absence of other specified parts of digestive tract
CPT/HCPCS: 74177; 80053; 81001; 85025; 96361; 96374; 99284; J7030; Q9967; A4216; J2405

== ENCOUNTER → 2023-04-15 | Outpatient (CLI) | payer OTHER, SELFPAY ==
--- OUTSIDE RECORDS SUMMARY | 2023-04-15 16:43 | XMS RPT_ITS | CCD ---
Author Name Unknown Address [id number] [place] [address] Organization [facility] Care Team Providers Care Edge Sawyer Name Role Phone LINDSEY GONZALEZ Unavailable Unavailable LINDSEY GONZALEZ Unavailable Unavailable CORINNE CARRASCO Unavailable Unavailable CHARAN HERRERA Unavailable Unavailable SELF, SELF Unavailable Unavailable CHARAN HERRERA Unavailable Unavailable SELF, SELF Unavailable Unavailable ROBB VALENTINE Unavailable Unavailable ROBB VALENTINE Unavailable Unavailable HOA, KIARA Unavailable Unavailable Jake Conrad Primary Care Provider Hoa KHANNA, Francisco Javier Dumont Primary Care Provider Hoa KHANNA, Francisco Javier Dumont Primary Care Provider [phone] Hoa KHANNA, Francisco Javier Dumont Primary Care Provider [phone] Jake Conrad MD Primary Care Provider JONATHAN BLAIR Attending Unavailable JONATHAN BLAIR Referring Unavailable CAMARA, KIARA Primary Care Unavailable PAMELA NIETO Attending Unavailable CAMARA, KIARA Primary Care Unavailable OLDER, CATARINA Attending Unavailable CAMARA, KIARA Primary Care Unavailable ROBYN PERDUE Attending Unavailable CAMARA, KIARA Primary Care Unavailable OLDER, CATARINA Attending Unavailable CAMARA, KIARA Primary Care Unavailable OLDER, CATARINA Referring Unavailable CAMARA, KIARA Primary Care Unavailable JONATHAN BLAIR Attending Unavailable JONATHAN BLAIR Referring Unavailable CAMARA, KIARA Primary Care Unavailable CAMARA, KIARA Referring Unavailable CAMARA, KIARA Primary Care Unavailable CAMARA, KIARA Referring Unavailable CAMARA, KIARA Primary Care Unavailable OLDER, CATARINA Referring Unavailable CAMARA, KIARA Primary Care Unavailable LINDSEYMERTI Attending Unavailable FRANCISCO JAVIER CAMARA Primary Care Unavailable FRANCISCO JAVIER CAMARA Attending Unavailable FRANCISCO JAVIER CAMARA Primary Care Unavailable JONATHAN BLAIR Attending Unavailable FRANCISCO JAVIER CAMARA Referring Unavailable FRANCISCO JAVIER CAMARA Primary Care Unavailable Allergies Allergy Classification Reported Allergen(s) Allergy Type Date of Onset Reaction(s) Facility (20 sources) PROCHLORPERAZINE EDISYLATE; Translations: [PROCHLORPERAZINE EDISYLATE] Propensity to adverse reactions to drug (disorder) 06-03-19 18 Other: See Comments [facility] Other [facility] Medications Current Medications Medication Drug Class(es) Dates Sig (Normalized) Sig (Original) amoxicillin 875 mg oral tablet (1 source) Penicillin-class Antibacterial Start: 05-17-2022 End: 05-24-2022 take 1 tablet by mouth twice daily amoxicillin (AMOXIL) 875 mg tablet Take 1 tablet by mouth twice daily for 7 days. 14 tablet 0 05/17/2022 05/24/2022 Active Completed/Discontinued Medications Medication Drug Class(es) Dates Sig (Normalized) Sig (Original) acyclovir 800 mg oral tablet (8 sources) Herpesvirus Nucleoside Analog DNA Polymerase Inhibitor, Herpes Simplex Virus Nucleoside Analog DNA Polymerase Inhibitor, Herpes Zoster Virus Nucleoside Analog DNA Polymerase Inhibitor Start: 11-02-2018 acyclovir (ZOVIRAX) 800 mg tablet Acyclovir Active 800 MG 5 TIMES DAILY November 02, 2018 8:54pm 0 11/02/2018 Active Problems Active Problems Problem Classification Problem Date Documented Da te Episodic/Chronic Abdominal pain (10 sources) Left lower quadrant pain; Translations: [Left lower quadrant pain] Onset: 02-17-2023 01-31-2023 Episodic Allergic reactions (1 source) Inflammatory dermatosis; Translations: [Dermatitis, unspecified] Episodic Anal and rectal conditions (1 source) Perianal abscess; Translations: [Anal abscess] Episodic Anxiety disorders (20 sources) Other specified anxiety disorders; Translations: [Panic attack] Onset: 02-13-2013 02-13-2013 Chronic Coronary atherosclerosis and other heart disease (6 sources) Other forms of angina pectoris; Translations: [Angina pectoris, unspecified] Onset: 03-10-2017 Chronic E Codes: Natural/environment (1 source) Insect bite - wound; Translations: [Bitten or stung by nonvenomous insect and other nonvenomous arthropods, initial encounter] 11-04-2022 Episodic Gastrointestinal hemorrhage (12 sources) Rectal hemorrhage; Translations: [Hemorrhage of anus and rectum] Onset: 02-17-2023 01-31-2023 Episodic Immunizations and screening for infectious disease (4 sources) Hepatitis C antibody test positive; Translations: [Other specified abnormal immunological findings in serum] Episodic Mood disorders (3 sources) Depressive disorder; Translations: [Depression] Onset: 02-13-2013 02-13-2013 Chronic Nonmalignant breast conditions (4 sources) Lump of subareolar area of left breast; Translations: [Unspecified lump in left breast, subareolar] Onset: 02-23-2023 01-31-2023 Episodic Other ear and sense organ disorders (1 source) Impacted cerumen in left ear; Translations: [Impacted cerumen, left ear] Episodic Other inflammatory condition of skin (1 source) Psoriasis; Translations: [Psoriasis, unspecified] 12-16-2022 Chronic Other inflammatory condition of skin (1 source) Psoriasis, unspecified; Translations: [Psoriasis] Onset: 12-21-2022 Chronic Other male genital disorders (2 sources) Male erectile dysfunction, unspecified; Translations: [Impotence of organic origin] Onset: 12-16-2022 12-16-2022 Chronic Other non-traumatic joint disorders (1 source) Multiple joint pain; Translations: [Pain in unspecified joint] 12-16-2022 Episodic Other non-traumatic joint disorders (1 source) Pain in unspecified joint; Translations: [Pain in joint involving multiple sites] Onset: 12-21-2022 Episodic Other nutritional; endocrine; and metabolic disorders (20 sources) Obese class I; Translations: [Obesity, unspecified] Onset: 02-27-2018 02-27-2018 Chronic Other upper respiratory disease (2 sources) Other allergic rhinitis; Translations: [Other allergic rhinitis] Onset: 01-24-2017 Chronic Other upper respiratory disease (3 sources) Allergic rhinitis; Translations: [Allergic rhinitis, unspecified] Onset: 02-13-2013 02-13-2013 Chronic Other upper respiratory disease (20 sources) Seasonal allergic rhinitis; Translations: [Other seasonal allergic rhinitis] Onset: 02-27-2018 02-27-2018 Chronic Other upper respiratory infections (1 source) Acute sinusitis; Translations: [Other acute sinusitis] Episodic Otitis media and related conditions (2 sources) Acute suppurative otitis media without spontaneous rupture of ear drum; Translations: [Acute suppurative otitis media without spontaneous rupture of ear drum, bilateral] Episodic Residual codes; unclassified (20 sources) Obstructive sleep apnea syndrome; Translations: [Obstructive sleep apnea (adult) (pediatric)] Onset: 04-13-2018 04-13-2018 Chronic Skin and subcutaneous tissue infections (1 source) Infection of skin; Translations: [Local infection of the skin and subcutaneous tissue, unspecified] 11-04-2022 Episodic Unclassified (7 sources) Encounter for screening for malignant neoplasm of prostate; Translations: [Patient encounter status] Onset: 01-24-2017 12-16-2022 Episodic Unclassified (1 source) Acute cough; Translations: [Acute cough] Onset: 09-02-2022 Viral infection (20 sources) Recurrent herpes simplex; Translations: [Other herpesviral infection] Onset: 02-04-2019 02-04-2019 Episodic Past or Other Problems Problem Classification Problem Date Documented Da te Episodic/Chronic Medical examination/evaluation (2 sources) Encounter for general adult medical examination without abnormal findings; Translations: [Encounter for general adult medical examination without abnormal findings] Onset: 01-24-2017 Episodic Other non-traumatic joint disorders (4 sources) Pain in left shoulder; Translations: [Pain in left shoulder] Onset: 03-15-2017 Episodic Unclassified (2 sources) Family history of ischemic heart disease and other diseases of the circulatory system; Translations: [Family history of ischemic heart disease and other diseases of the circulatory system] Onset: 03-10-2017 Episodic Results Test Name Value Interpretation Reference Range Facil ity Vital Signs Date Time Vital Sign Value Performing Clinician Faci litcoreen 02-17-2023 09:39-0500 Diastolic blood pressure 81 mm[Hg] Jonathan Blair MD Work Phone: [facility] 02-17-2023 09:39-0500 Heart rate 97 /min Jonathan Blair MD Work Phone: [facility] 02-17-2023 09:39-0500 Respiratory rate 16 /min Jonatahn Blair MD Work Phone: [facility] 02-17-2023 09:39-0500 SaO2% (BldA) [Mass fraction] 99 % Jonathan Blair MD Work Phone: [facility] 02-17-2023 09:39-0500 Systolic blood pressure 135 mm[Hg] Jonathan Blair MD Work Phone: [facility] 02-17-2023 08:15-0500 Body temperature 98.1 [degF] Jonathan Blair MD Work Phone: [facility] 02-17-2023 08:15-0500 Body weight 97.1 kg Jonathan Blair MD Work Phone: [facility] 01-31-2023 19:02-0400 Body weight 97.07 kg Francisco Javier Camara MD Work Phone: [facility] 01-31-2023 19:02-0400 Diastolic blood pressure 82 mm[Hg] Francisco Javier Camara MD Work Phone: [facility] 01-31-2023 19:02-0400 Heart rate 76 /min Francisco Javier Camara MD Work Phone: [facility] 01-31-2023 19:02-0400 Respiratory rate 18 /min Francisco Javier Camara MD Work Phone: [facility] 01-31-2023 19:02-0400 Systolic blood pressure 130 mm[Hg] Francisco Javier Camara MD Work Phone: [facility] 12-16-2022 08:32-0400 Diastolic blood pressure 82 mm[Hg] Catarina Older VARNISHER P[employer]ICOATER[employer]COOK RELIEF Work Phone: [facility] 12-16-2022 08:32-0400 Systolic blood pressure 136 mm[Hg] Catarina Older VARNISHER PLASTICOATER[employer]COOK RELIEF Work Phone: [facility] 12-16-2022 08:02-0400 Body temperature 97.5 [degF] Catarina Older VARNISHER PLASTICOATER[employer]OOK RELIEF Work Phone: [facility] 12-16-2022 08:02-0400 Body weight 97.98 kg Catarina Older VARNISHER PLASTICOATER[employer]IEF Work Phone: [facility] 12-16-2022 08:02-0400 Heart rate 89 /min Catarina Older VARNISHER PLASTICOATER[employer]OOK RELIEF Work Phone: [facility] 12-16-2022 08:02-0400 Respiratory rate 16 /min Catarina Older VARNISHER PLASTICOATER[employer]COOK RELIEF Work Phone: [facility] 12-16-2022 08:02-0400 SaO2% (BldA) [Mass fraction] 96 % Catarina Older VARNISHER PLASTICOATER[employer]COOK RELIEF Work Phone: [facility] 11-04-2022 07:01-0400 Body temperature 97.81 [degF] Robyn Perdue VARNISHER PLASTICOATER.HAND SINGER Work Phone: [facility] 11-04-2022 07:01-0400 Body weight 96.16 kg Robyn Perdue VARNISHER PLASTICOATER.HAND SINGER Work Phone: [facility] 11-04-2022 07:01-0400 Diastolic blood pressure 82 mm[Hg] Robyn Perdue VARNISHER PLASTICOATER.HAND SINGER Work Phone: [facility] 11-04-2022 07:01-0400 Heart rate 83 /min Robyn Perdue VARNISHER PLASTICOATER.HAND SINGER Work Phone: [facility] 11-04-2022 07:01-0400 Respiratory rate 16 /min Roybn Perdue VARNISHER PLASTICOATER.HAND SINGER Work Phone: [facility] 11-04-2022 07:01-0400 SaO2% (BldA) [Mass fraction] 98 % Robyn Perdue VARNISHER PLASTICOATER.HAND SINGER Work Phone: [facility] 11-04-2022 07:01-0400 Systolic blood pressure 128 mm[Hg] Robyn Perdue VARNISHER PLASTICOATER.HAND SINGER Work Phone: [facility] 05-17-2022 13:34-0500 Body temperature 96.8 [degF] Catarina Older VARNISHER PLASTICOATER[employer]COOK RELIEF Work Phone: [facility] 05-17-2022 13:34-0500 Body weight 96.16 kg Catarina Older VARNISHER PLASTICOATER[employer]OOK RELIEF Work Phone: [facility] 05-17-2022 13:34-0500 Diastolic blood pressure 80 mm[Hg] Catarina Older VARNISHER PLASTICOATER[employer]COOK RELIEF Work Phone: [facility] 05-17-2022 13:34-0500 Heart rate 94 /min Catarina Older VARNISHER PLASTICOATER[employer]COOK RELIEF Work Phone: [facility] 05-17-2022 13:34-0500 Respiratory rate 16 /min Catarina Older VARNISHER PLASTICOATER[employer]COOK RELIEF Work Phone: [facility] 05-17-2022 13:34-0500 SaO2% (BldA) [Mass fraction] 98 % Catarina Older VARNISHER PLASTICOATER[employer]COOK RELIEF Work Phone: [facility] 05-17-2022 13:34-0500 Systolic blood pressure 125 mm[Hg] Catarina Older VARNISHER PLASTICOATER[employer] RELIEF Work Phone: [facility] 01-11-2022 15:05-0400 Diastolic blood pressure 80 mm[Hg] Catarina Older VARNISHER PLASTICOATER[employer]OOK RELIEF Work Phone: [facility] 01-11-2022 15:05-0400 Systolic blood pressure 112 mm[Hg] Catarina Older VARNISHER PLASTICOATER[employer] RELIEF Work Phone: [facility] 01-11-2022 14:51-0400 Body weight 97.98 kg Catarina Older VARNISHER P[employer]ICO[employer] RELIEF Work Phone: [facility] 01-11-2022 14:51-0400 Heart rate 80 /min Catarina Older VARNISHER PLASTICOATER[employer]COOK RELIEF Work Phone: [facility] 01-11-2022 14:51-0400 Respiratory rate 18 /min Catarina Older VARNISHER P[employer]ICO[employer]IEF Work Phone: [facility] 11-06-2021 08:44-0400 Body height 177.8 cm Jonathan Blair MD Work Phone: [facility] 11-06-2021 08:44-0400 Body temperature 96.6 [degF] Jonathan Blair MD Work Phone: [facility] 11-06-2021 08:44-0400 Body weight 98.43 kg Jonathan Blair MD Work Phone: [facility] 11-06-2021 08:44-0400 Diastolic blood pressure 88 mm[Hg] Jonathan Blair MD Work Phone: [facility] 11-06-2021 08:44-0400 Heart rate 97 /min Jonathan Blair MD Work Phone: [facility] 11-06-2021 08:44-0400 SaO2% (BldA) [Mass fraction] 97 % Jonathan Blair MD Work Phone: [facility] 11-06-2021 08:44-0400 Systolic blood pressure 132 mm[Hg] Jonathan Blair MD Work Phone: [facility] 09-24-2021 13:37-0400 Body temperature 97 [degF] Francisco Javier Camara MD Work Phone: [facility] 09-24-2021 13:37-0400 Body weight 97.98 kg Francisco Javier Camara MD Work Phone: [facility] 09-24-2021 13:37-0400 Diastolic blood pressure 74 mm[Hg] Francisco Javier Camara MD Work Phone: [facility] 09-24-2021 13:37-0400 Heart rate 84 /min Francisco Javier Camara MD Work Phone: [facility] 09-24-2021 13:37-0400 Respiratory rate 16 /min Francisco Javier Camara MD Work Phone: [facility] 09-24-2021 13:37-0400 SaO2% (BldA) [Mass fraction] 96 % Francisco Javier Camara MD Work Phone: [facility] 09-24-2021 13:37-0400 Systolic blood pressure 126 mm[Hg] Francisco Javier Camara MD Work Phone: [facility] Encounters Encounter Date Encounter Type Care Provider Facility Start: 02-24-2023 End: 02-24-2023 ambulatory JONATHAN BLAIR Facility:[facility] Start: 02-24-2023 End: 02-24-2023 Patient encounter procedure Jonathan Blair MD Work Phone: General Surgery Procedures Date Procedure Procedure Detail Performing Clinician Start: 02-23-2023 Us breast uni real t lucrecia with image limited Francisco Javier Camara MD Work Phone: Start: 02-23-2023 Digital breast tomosynthesis bilateral Francisco Javier Camara MD Work Phone: Start: 02-17-2023 Colonoscopy flx dx w /collj spec when pfrmd Jonathan Blair MD Work Phone: Start: 02-17-2023 Colonoscopy Rachana hopson RN Start: 01-31-2023 PFIZER-BIONTECH COVI D-19 VACCINE ( SEASON) AGE 12+ YR Francisco Javier Camara MD Work Phone: Start: 12-16-2022 INFLUENZA VACCINE, A GE 6 MO - 64 YR, QUADRIVALENT (AFLURIA, FLULAVAL, FLUZONE) Catarina Older VARNISHER P[employer]ICO[employer] RELIEF Work Phone: Start: 12-16-2022 Lipid 1996 panel - S lesley or Plasma Catarina Older VARNISHER P[employer]ICO[employer]IEF Work Phone: Start: 01-11-2022 INFLUENZA VACCINE QUADRIVALENT 6 MO - 64 YRS IM Catarina Older VARNISHER PLASTICOATER[employer]OOK [employer]IEF Work Phone: Start: 01-11-2022 PFIZER-BIONTECH COVI D-19 BIVALENT BOOSTER VACCINE, AGE 12+ YR Catarina Older VARNISHER PLASTICOATER[employer]COOK RELIEF Work Phone: Plan of Treatment Date Care Activity Detail Author Start: 04-02-2028 Urine microalbumin profile [facility] Start: 12-17-2027 Lipid 1996 panel - Serum or Plasma Lipid Screening [facility] Start: 12-16-2025 Diabetes Screening Diabetes Screening [facility] Start: 2025 Shingles (RZV) Vaccine (1 of 2) Shingles (RZV) Vaccine (1 of 2) [facility] Start: 01-16-2025 LIPID SCREEN LIPID SCREEN [facility] Start: 02-18-2024 Colonoscopy Colonoscopy [facility] Start: 02-18-2024 Colorectal Cancer Screening Colorectal Cancer Screening [facility] Start: 01-26-2024 COLOGUARD (FIT-DNA) COLOGUARD (FIT-DNA) [facility] Start: 01-26-2024 COLORECTAL CANCER SCREENING COLORECTAL CANCER SCREENING [facility] Start: 12-16-2022 End: 02-15-2023 C reactive protein [Mass/volume] in Serum or Plasma C-REACTIVE PROTEIN (CRP) Lab Routine Pain in joint involving multiple sites Psoriasis Expected: 12/16/2022, Expires: 02/15/2023 [facility] Work Phone: Immunizations Immunization Date Immunization Notes Care Provider Fa [facility] 01-31-2023 COVID-19 vaccine, ag e 12+ yr, season (PFIZER-BIONTZoopla) Francisco Javier Camara MD Work Phone: [facility] Work Phone: 12-16-2022 influenza, injectable, quadrivalent, contains preservative Catarina Older VARNISHER PLASTICOATER[employer]COOK RELIEF Work Phone: [facility] 01-11-2022 COVID-19 booster vaccine, age 12+ yr, bivalent (PFIZER-BIONTECH) Catarina Older VARNISHER PLASTICOATER[employer]COOK RELIEF Work Phone: [facility] 01-11-2022 influenza, injectable, quadrivalent, contains preservative Catarina Older VARNISHER PLASTICOATER[employer]COOK RELIEF Work Phone: [facility] 12-23-2020 influenza, injectable, quadrivalent, contains preservative Francisco Javier Camara MD Work Phone: [facility] Work Phone: 12-23-2020 pneumococcal conjugate vaccine, 13 valent Francisco Javier Camara MD Work Phone: [facility] Work Phone: 07-31-2020 COVID-19 vaccine, full dose (MODERNA) Francisco Javier Camara MD Work Phone: [facility] Work Phone: 07-03-2020 COVID-19 vaccine, full dose (MODERNA) Francisco Javier Camara MD Work Phone: [facility] Work Phone: 01-16-2020 influenza, injectable, quadrivalent, contains preservative Francisco Javier Camara MD Work Phone: [facility] 01-29-2019 influenza, injectable, quadrivalent, contains preservative Francisco Javier Camara MD Work Phone: [facility] Work Phone: 04-02-2018 tetanus toxoid, reduced diphtheria toxoid, and acellular pertussis vaccine, adsorbed Francisco Javier Camara MD Work Phone: [facility] Work Phone: 02-13-2013 influenza nasal, unspecified formulation Francisco Javier Camara MD Work Phone: [facility] Work Phone: 02-13-2013 influenza virus vaccine, unspecified formulation Jake Conrad [facility] Payers Date Payer Category Payer [facility] Health [facility] [facility] [id number] 2021-Present [phone] [address] [place] [address] PPO [id number] 2021 [facility] Health [facility] [facility] [id number] 2021-Present [phone] [address] [place] [address] PPO [id number] 2021 Private Health Insurance [id number] Unknown ANTHEM - BLUE CR OSS BLUE CROSS/HMO,PPO,POS [id number] Effective for all dates [place], [place] PPO [id number] Unknown ANTHEM - BLUE CR OSS BLUE CROSS/HMO,PPO,POS [id number] Effective for all dates [address] [place] [address] PPO [id number] Social History Date Type Detail Facility Start: 02-13-2013 End: 01-11-2022 Tobacco smoking status NHIS Never smoker [facility] Start: 02-13-2013 Alcohol intake Current non-dr equity analyst of alcohol (finding) [facility] Start: 1975 Sex Assigned At Not on file M [facility] Start: 06-03-2017 End: 01-11-2022 Tobacco use and exposure Smokeless tobacco non-user [facility] Start: 06-25-2021 End: 02-24-2023 Alcohol intake Current drinker of alcohol (finding) [facility] Start: 06-24-2021 End: 03-11-2022 History SDOH Alcohol Frequency 2 [facility] Start: 06-24-2021 End: 03-11-2022 History SDOH Alcohol Std Drinks 1 [facility] Start: 02-27-2018 History SDOH Alcohol Comment once a month [facility] Start: 06-24-2021 History SDOH Social Connections Phone 5 [facility] Start: 06-24-2021 End: 03-11-2022 History SDOH Social Connections Living 3 [facility] Start: 11-28-2019 Education 16 [facility] Start: 1975 Sex Assigned At Male C [facility] Start: 06-15-2021 End: 12-16-2021 Exposure to SARS-CoV-2 (event) Not sure [facility] Work Phone: Start: 03-11-2022 End: 11-04-2022 History of Social function [facility] Start: 03-11-2022 End: 11-04-2022 Social connection and isolation panel [facility] In a typical week, h ow many times do you talk on the telephone with family, friends, or neighbors? Patient refused [facility] Are you now , , , , never or living with a partner? Refused [facility] How often to you hav e a drink containing alcohol? Monthly or less [facility] How many standard drinks containing alcohol do you have on a typical day? 1 or 2 [facility] How often do you hav e 6 or more drinks on 1 occasion? Never [facility] Do you feel stress - tense, restless, nervous, or anxious, or unable to sleep at night because your mind is troubled all the time - these days [OSQ] Only a little [facility] (I/We) worried wheth er (my/our) food would run out before (I/we) got money to buy more. DK or Refused [facility] Start: 11-28-2019 Gender identity Identifies as male gender (finding) [facility] Start: 11-28-2019 Sexual orientation Homosexual (findi ng) [facility] Clinical Notes 02-27-2018 to 02-25-2023 Jonathan Blair MD - 02/25/2023 3:51 PM Monica Schuster RDAR - 02/23/2023 3:30 PM Ham Melgar Mammo Tech - 02/23/2023 3:00 PM Jonathan Rios MD - 02/17/2023 1:00 PM EST Note Date & Type Note Facility 02-25-2023 Note HNO ID: [id number] Author: Jonathan Blair MD Service: ? Author Type: Physician Type: Progress Notes Filed: 02/25/2023 3:54 PM Note Text: Subjective: Patient is status post a colonoscopy where I did some biopsies in the anal area which came back as high-grade squamous intraepithelial lesion for all intents and purposes this actually looks like warts. Pathology report comment showed, The biopsy consists of rectal and squamous mucosa. The squamous mucosa shows full-thickness atypia without maturation across layers and increased mitotic activity. p16 immunohistochemical stain demonstrates strong and diffuse block staining pattern. HPV CISH- In situ hybridization for Human Papilloma Virus. Block number: A1 Low Risk HPV: Negative High Risk HPV: Positive The HPV-CiSH test uses in-situ hybridization techniques to detect E6/E7 HPV mRNA. This technique allows differentiation of type-specific E6/E7. The mixture of probes for high risk (HR) HPV detects types 16, 18, 26, 31, 33, 35, 39, 45, 51, 52, 53, 56, 58, 59, 66, 68, 73 and 82. The low risk (LR) HPV mixture detects types 6, 11, 40, 42, 43, and 44. Objective:There were no vitals taken for this visit. No exam today Assessment:Anal warts (primary encounter diagnosis) I plans to do an exam under anesthesia and fulgurate this area. I will be using the argon beam carpenter helper. I also told him that if there are any warts on the outside that I see then I am going to fulgurate them as well. I spent 10 minutes talking to him and his partner. [facility] 02-25-2023 History of Present illness Narrative Subjective: Patient is status post a colonoscopy where I did some biopsies in the anal area which came back as high-grade squamous intraepithelial lesion for all intents and purposes this actually looks like warts. Pathology report comment showed, The biopsy consists of rectal and squamous mucosa. The squamous mucosa shows full-thickness atypia without maturation across layers and increased mitotic activity. p16 immunohistochemical stain demonstrates strong and diffuse block staining pattern. HPV CISH- In situ hybridization for Human Papilloma Virus. Block number: A1 Low Risk HPV: Negative High Risk HPV: Positive The HPV-CiSH test uses in-situ hybridization techniques to detect E6/E7 HPV mRNA. This technique allows differentiation of type-specific E6/E7. The mixture of probes for high risk (HR) HPV detects types 16, 18, 26, 31, 33, 35, 39, 45, 51, 52, 53, 56, 58, 59, 66, 68, 73 and 82. The low risk (LR) HPV mixture detects types 6, 11, 40, 42, 43, and 44. Objective:There were no vitals taken for this visit. No exam today Assessment:Anal warts (primary encounter diagnosis) I plans to do an exam under anesthesia and fulgurate this area. I will be using the argon beam carpenter helper. I also told him that if there are any warts on the outside that I see then I am going to fulgurate them as well. I spent 10 minutes talking to him and his partner. documented in this encounter [facility] 02-23-2023 Note HNO ID: [id number] Author: Monica Godoy RDMS Service: ? Author Type: Certified Detention Deputy Type: Progress Notes Filed: 02/23/2023 4:22 PM Note Text: Radiology Service Progress Note PATIENT NAME: Aston Napoles DATE OF SERVICE: February 23, 2023 TIME: 4:22 PM PATIENT IDENTITY VERIFICATION COMPLETED USING TWO (2) IDENTIFIERS: Name and Date of confirmed by patient verbally. FALL SCREENING: Has the patient had 2 falls in the last year or 1 fall with injury or currently using an Ambulatory Assistive Device (Walker, Cane, Wheelchair, Crutches, etc.)? No PATIENT GENDER DATA: Male PATIENT RELEVANT IMPLANT DATA REVIEWED: Not Applicable RADIOLOGY DEPARTMENT: Ultrasound PERIPHERAL IV DATA: Not applicable SIGNED BY: Monica Godoy RDMS RVT February 23, 2023 4:22 PM [facility] 02-23-2023 Note HNO ID: [id number] Author: Ham Miller Mammo Tech Service: ? Author Type: Technologist Type: Progress Notes Filed: 02/23/2023 3:14 PM Note Text: Radiology Service Progress Note PATIENT NAME: Aston Napoles DATE OF SERVICE: February 23, 2023 TIME: 3:14 PM PATIENT IDENTITY VERIFICATION COMPLETED USING TWO (2) IDENTIFIERS: Name and Date of confirmed by patient verbally. FALL SCREENING: Has the patient had 2 falls in the last year or 1 fall with injury or currently using an Ambulatory Assistive Device (Walker, Cane, Wheelchair, Crutches, etc.)? No PATIENT GENDER DATA: Male PATIENT RELEVANT IMPLANT DATA REVIEWED: Not Applicable RADIOLOGY DEPARTMENT: Mammography PERIPHERAL IV DATA: Not applicable SIGNED BY: Bertrand Cummings February 23, 2023 3:14 PM [facility] 02-23-2023 History of Present illness Narrative Radiology Service Progress Note PATIENT NAME: Aston Napoles DATE OF SERVICE: February 23, 2023 TIME: 4:22 PM PATIENT IDENTITY VERIFICATION COMPLETED USING TWO (2) IDENTIFIERS: Name and Date of confirmed by patient verbally. FALL SCREENING: Has the patient had 2 falls in the last year or 1 fall with injury or currently using an Ambulatory Assistive Device (Walker, Cane, Wheelchair, Crutches, etc.)? No PATIENT GENDER DATA: Male PATIENT RELEVANT IMPLANT DATA REVIEWED: Not Applicable RADIOLOGY DEPARTMENT: Ultrasound PERIPHERAL IV DATA: Not applicable SIGNED BY: Monica Godoy RDMS RVT February 23, 2023 4:22 PM documented in this encounter [facility] 02-23-2023 History of Present illness Narrative Radiology Service Progress Note PATIENT NAME: Aston Napoles DATE OF SERVICE: February 23, 2023 TIME: 3:14 PM PATIENT IDENTITY VERIFICATION COMPLETED USING TWO (2) IDENTIFIERS: Name and Date of confirmed by patient verbally. FALL SCREENING: Has the patient had 2 falls in the last year or 1 fall with injury or currently using an Ambulatory Assistive Device (Walker, Cane, Wheelchair, Crutches, etc.)? No PATIENT GENDER DATA: Male PATIENT RELEVANT IMPLANT DATA REVIEWED: Not Applicable RADIOLOGY DEPARTMENT: Mammography PERIPHERAL IV DATA: Not applicable SIGNED BY: Bertrand Cummings February 23, 2023 3:14 PM documented in this encounter [facility] 02-17-2023 History and physical note Images from the original note were not included. HISTORY AND PHYSICAL Aston Napoles 1975 REFERRING PHYSICIAN: Francisco Javier Camara MD CHIEF COMPLAINT: Consult (LLQ abdominal pain/ Rectal bleeding) HPI: The patient is a 47 year old male referred for endoscopy. Aston notes the following GI complaints: Aston notes abdominal pain. The pain occurs in the following locations: LLQ . Aston denies diarrhea. Aston denies constipation. Aston denies a change in bowel habits. Aston denies melena. Aston notes bright red blood per rectum. Aston denies hemorrhoids. The patient notes no history of upper GI complaints. Aston has not undergone prior endoscopy. The patient is being seen by me today at the request of Dr. Francisco Javier Camara MD for my opinion and advice regarding Abdominal pain, left lower quadrant Rectal bleeding. 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 02/04/2019 Seasonal allergic rhinitis 02/27/2018 Seizure disorder (HCC) 2001 twice initially, then none on medication for 9 years, weaned off successfully Somnolence, daytime 02/27/2018 PAST SURGICAL HISTORY PAST SURGICAL HISTORY Procedure Laterality Date APPENDECTOMY 1997 EXCISION PILONIDAL CYST/SINUS SIMPLE INGUINAL HERNIA REPAIR HX Bilateral 1993 1992 and 1993 each side TONSILLECTOMY HX 1979 CURRENT MEDICATIONS Current Outpatient Medications Medication Sig acyclovir (ZOVIRAX) 800 mg tablet Acyclovir Active 800 MG 5 TIMES DAILY November 02, 2018 8:54pm ALPRAZolam (XANAX) 0.25 mg tablet Take 0.25 mg by mouth. dicyclomine (BENTYL) 20 mg tablet ondansetron orally disintegrating (ZOFRAN ODT) 4 mg disintegrating tablet guselkumab (TREMFYA) 100 mg/mL Inject 100 mg subcutaneously once every month. DULoxetine (CYMBALTA) 30 mg capsule Take 1 capsule by mouth once daily. clotrimazole-betamethasone (LOTRISONE) cream Apply to affected area twice daily as needed. albuterol HFA (VENTOLIN HFA) 90 mcg/actuation inhaler Inhale 2 Puffs as instructed every 4 hours as needed for wheezing/shortness of breath. fluticasone (FLONASE) 50 mcg/actuation nasal spray Use 2 Sprays in each nostril once daily. Rinse mouth after use. COMPOUNDED PRESCRIPTION Increase CPAP setting to 13 cm H2O pressure. Dx: KEYLA CPAP Initiate CPAP @ 11 cm of water with humidification. Mask (per patient preference) optional chin strap (if indicated) , filters, tubing, humidifier and lifetime supplies. CETIRIZINE HCL (ZYRTEC ORAL) Take by mouth. No current facility-administered medications for this visit. ALLERGIES: Compazine [Prochlorperazine Edisylate] PERSONAL HISTORY: SOCIAL HISTORY Social History Tobacco Use Smoking status: Never Smokeless tobacco: Never Vaping Use Vaping Use: Never used Substance Use Topics Alcohol use: Yes Comment: once a month Drug use: No FAMILY HISTORY: FAMILY HISTORY FAMILY HISTORY Problem Relation Age of Onset Hypertension Mother Heart Attack Father 60 sudden Hypertension Father No Known Problems Sister No Known Problems Brother Colon Cancer Maternal Grandfather 72 Heart disease Paternal Grandmother Heart disease Paternal Grandfather REVIEW OF SYMPTOMS: The review of systems data was entered by the nurse and reviewed by me Nursing Notes: Reyna WorthingtonCOCO 02/01/2023 3:58 PM Signed REVIEW OF SYSTEMS: General: The patient denies fatigue, denies weight loss, denies weight gain, denies feeling hot, and denies feelings of cold. Eyes: The patient denies glaucoma, denies eye injury/surgery, wears glasses or contacts. Ear/Nose/Throat: The patient denies allergies, denies hayfever, denies ear infections, and denies bloody noses. Cardiovascular: The patient denies chest pain, denies heart disease, denies high blood pressure,denies cardiac stent, denies prior heart attack, denies irregular heart beat, denies high cholesterol, denies poor circulation, denies heart failure, other cardiac issues, denies claudication, denies cold feet, denies peripheral arterial stent. Respiratory: The patient denies tuberculosis, denies pneumonia, denies frequent cough, denies pulmonary embolism, denies shortness of breath, and denies coughing up blood. Gastrointestinal: The patient denies difficulty swallowing, denies acid reflux, denies ulcers, denies vomiting, denies jaundice/hepatitis, denies gallbladder problems, denies black or tarry stools, denies hemorrhoids, denies bleeding from rectum, denies diverticulitis, denies constipation, denies diarrhea, denies loss of stool control, and NOTES hernias. Kidney/Bladder: The patient denies kidney stones, denies urine infections, and denies bloody urine. Skin: The patient denies a history of skin cancer, denies bleeding/changing moles, and denies a history of skin rash. Neurologic: The patient NOTES a history of epilepsy/convulsions, denies headaches, denies head/spinal injuries, and denies stroke/TIA. Psychiatric: The patient denies psychiatric medications, NOTES depression, and denies voices, denies substance abuse. Endocrine: The patient denies thyroid disorders, denies diabetes, and denies hormonal problems. Hematologic: The patient denies a history of bruising, denies bleeding, and denies anemia, denies blood clots. Infections: The patient denies a history of measles and mumps, denies rheumatic fever, and NOTES sexually transmitted diseases. Musculoskeletal: The patient denies back pain/injury, denies back problems, denies sciatica, denies knee/foot trouble, denies arthritis, or denies gout. When was patient's last Mammogram screening? N/A Last Colonoscopy: no prior colonoscopy Reyna Worthington LPN PHYSICAL EXAMINATION: General: The patient is 47 year old male, well nourished, well hydrated in no acute distress. The patient is oriented to time, place, and person. VITALS: There were no vitals taken for this visit. There is no height or weight on file to calculate BMI. HEENT: Normal cephalic, ataumatic, pupils are equally round, sclera are anicteric, mucous membranes are moist, oropharynx is clear. Neck has no masses, asymmetry or lymphadenopathy. Thyroid is unremarkable. Respiratory: Clear to auscultation and percussion. Normal respiratory excursion and pattern. Cardiac: Examination is regular rate and rhythm. Abdominal exam: Soft, nontender, with no palpable masses. No hepatosplenomegaly. No palpable hernias. Rectal exam: exam deferred Extremities: no clubbing, cyanosis or edema. No adenopathy. Other: LABORATORY VALUES: As Noted RADIOLOGIC STUDIES: As Noted Assessment IMPRESSION: Abdominal pain, left lower quadrant Rectal bleeding PLAN: I plan to perform lower endoscopy. We discussed the risks and benefits of the planned endoscopy. I have informed the patient that complications can occur including failure to complete the endoscopy and perforation. The patient had the opportunity to ask questions concerning the planned endoscopy. My staff has also explained the procedure to the patient in understandable terms and has given the patient printed material concerning the procedure. The patient freely consents to surgery. I plan to use golytely bowel preparation for endoscopy Diagnoses: (R10.32) Abdominal pain, left lower quadrant (K62.5) Rectal bleeding My findings have been communicated to Dr. Francisco Javier Camara MD via shared medical record. This note will be forwarded to Dr. Francisco Javier Camara MD. Return to Clinic: The patient is instructed to follow-up with me 1 week post operatively. Jonathan Blair III, MD UPDATED HISTORY AND PHYSICAL EXAMINATION SERVICE DATE: 02/17/2023 SERVICE TIME: 8:34 AM PHYSICAL EXAM MUST BE COMPLETED ON ADMISSION The History and Physical (completed in the past 30 days) has been reviewed and the patient has been examined. The contents accurately reflect the patient's condition with the following additions or revisions since the H&P was completed. Examination indicates no changes. This H&P can be found in the attached. SIGNATURE: Jonathan Blair III, MD PATIENT NAME: Aston Napoles DATE: February 17, 2023 TIME: 8:34 AM documented in this encounter [facility] 02-17-2023 Nurse Note Arrived in phase II via cart. Left lateral position. Sedated, but responds to verbal stimuli. Color normal; skin warm and dry. Respirations wnl and unlabored. Abdomen soft and with + bowel sounds in quads X 4. Patient resting comfortably. Dr. Blair at bedside to review procedure and recommendations. Nicole Pendleton RN documented in this encounter [facility] 02-17-2023 Miscellaneous Notes Patient calling back. States that he did not receive a call back from the environmental professional provider, is still nauseated and that his headache is persistent. Asking if he can take Tylenol for headache and if he can take something for nausea prior to his scheduled 11 AM procedure. No worsening symptoms from earlier call. Conferenced patient to Surgery Answering Service to speak with environmental professional provider. documented in this encounter [facility] 02-17-2023 Miscellaneous Notes Patient calling with worsening nausea since completing his colonoscopy prep around 5-6 PM last evening. Denies vomiting, but states nausea is progressively getting worse. Wants to know if he can take ondansetron he has prescribed. 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 Advised patient he can come to ED for any new or worsening symptoms. documented in this encounter [facility] 02-07-2023 Note HNO ID: [id number] Author: Jonathan Blair MD Service: ? Author Type: Physician Type: Progress Notes Filed: 02/07/2023 12:49 PM Note Text: HISTORY AND PHYSICAL Aston Napoles 1975 REFERRING PHYSICIAN: Francisco Javier Camara MD CHIEF COMPLAINT: Consult (LLQ abdominal pain/ Rectal bleeding) HPI: The patient is a 47 year old male referred for endoscopy. Aston notes the following GI complaints: Aston notes abdominal pain. The pain occurs in the following locations: LLQ . Aston denies diarrhea. Aston denies constipation. Aston denies a change in bowel habits. Aston denies melena. Aston notes bright red blood per rectum. Aston denies hemorrhoids. The patient notes no history of upper GI complaints. Aston has not undergone prior endoscopy. The patient is being seen by me today at the request of Dr. Francisco Javier Camara MD for my opinion and advice regarding Abdominal pain, left lower quadrant Rectal bleeding. 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 dicyclomine (BENTYL) 20 mg tablet ondansetron orally disintegrating (ZOFRAN ODT) 4 mg disintegrating tablet guselkumab (TREMFYA) 100 mg/mL Inject 100 mg subcutaneously once every month. DULoxetine (CYMBALTA) 30 mg capsule Take 1 capsule by mouth once daily. clotrimazole-betamethasone (LOTRISONE) cream Apply to affected area twice daily as needed. albuterol HFA (VENTOLIN HFA) 90 mcg/actuation inhaler Inhale 2 Puffs as instructed every 4 hours as needed for wheezing/shortness of breath. fluticasone (FLONASE) 50 mcg/actuation nasal spray Use 2 Sprays in each nostril once daily. Rinse mouth after use. COMPOUNDED PRESCRIPTION Increase CPAP setting to 13 cm H2O pressure. Dx: KEYLA CPAP Initiate CPAP @ 11 cm of water with humidification. Mask (per patient preference) optional chin strap (if indicated) , filters, tubing, humidifier and lifetime supplies. CETIRIZINE HCL (ZYRTEC ORAL) Take by mouth. No current facility-administered medications for this visit. ALLERGIES: Compazine [Prochlorperazine Edisylate] PERSONAL HISTORY: Social History Tobacco Use Smoking status: Never Smokeless tobacco: Never Vaping Use Vaping Use: Never used Substance Use Topics Alcohol use: Yes Comment: once a month Drug use: No FAMILY HISTORY: FAMILY HISTORY Problem Relation Age of Onset Hypertension Mother Heart Attack Father 60 sudden Hypertension Father No Known Problems Sister No Known Problems Brother Colon Cancer Maternal Grandfather 72 Heart disease Paternal Grandmother Heart disease Paternal Grandfather REVIEW OF SYMPTOMS: The review of systems data was entered by the nurse and reviewed by wi Nursing Notes: Reyna Worthington LPN 02/01/2023 3:58 PM Signed REVIEW OF SYSTEMS: General: The patient denies fatigue, denies weight loss, denies weight gain, denies feeling hot, and denies feelings of cold. Eyes: The patient denies glaucoma, denies eye injury/surgery, wears glasses or contacts. Ear/Nose/Throat: The patient denies allergies, denies hayfever, denies ear infections, and denies bloody noses. Cardiovascular: The patient denies chest pain, denies heart disease, denies high blood pressure,denies cardiac stent, denies prior heart attack, denies irregular heart beat, denies high cholesterol, denies poor circulation, denies heart failure, other cardiac issues, denies claudication, denies cold feet, denies peripheral arterial stent. Respiratory: The patient denies tuberculosis, denies pneumonia, denies frequent cough, denies pulmonary embolism, denies shortness of breath, and denies coughing up blood. Gastrointestinal: The patient denies difficulty swallowing, denies acid reflux, denies ulcers, denies vomiting, denies jaundice/hepatitis, denies gallbladder problems, denies black or tarry stools, denies hemorrhoids, denies bleeding from rectum, denies diverticulitis, denies constipation, denies diarrhea, denies loss of stool control, and NOTES hernias. Kidney/Bladder: The patient denies kidney stones, denies urine infections, and denies bloody urine. Skin: The patient denies a history of skin cancer, denies bleeding/changing moles, and denies a history of skin rash. (more content not included)... [facility] 02-07-2023 History of Present illness Narrative HISTORY AND PHYSICAL Aston Napoles 1975 REFERRING PHYSICIAN: Francisco Javier Camara MD CHIEF COMPLAINT: Consult (LLQ abdominal pain/ Rectal bleeding) HPI: The patient is a 47 year old male referred for endoscopy. Aston notes the following GI complaints: Aston notes abdominal pain. The pain occurs in the following locations: LLQ . Aston denies diarrhea. Aston denies constipation. Aston denies a change in bowel habits. Aston denies melena. Aston notes bright red blood per rectum. Aston denies hemorrhoids. The patient notes no history of upper GI complaints. Aston has not undergone prior endoscopy. The patient is being seen by me today at the request of Dr. Francisco Javier Camara MD for my opinion and advice regarding Abdominal pain, left lower quadrant Rectal bleeding. 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 dicyclomine (BENTYL) 20 mg tablet ondansetron orally disintegrating (ZOFRAN ODT) 4 mg disintegrating tablet guselkumab (TREMFYA) 100 mg/mL Inject 100 mg subcutaneously once every month. DULoxetine (CYMBALTA) 30 mg capsule Take 1 capsule by mouth once daily. clotrimazole-betamethasone (LOTRISONE) cream Apply to affected area twice daily as needed. albuterol HFA (VENTOLIN HFA) 90 mcg/actuation inhaler Inhale 2 Puffs as instructed every 4 hours as needed for wheezing/shortness of breath. fluticasone (FLONASE) 50 mcg/actuation nasal spray Use 2 Sprays in each nostril once daily. Rinse mouth after use. COMPOUNDED PRESCRIPTION Increase CPAP setting to 13 cm H2O pressure. Dx: KEYLA CPAP Initiate CPAP @ 11 cm of water with humidification. Mask (per patient preference) optional chin strap (if indicated) , filters, tubing, humidifier and lifetime supplies. CETIRIZINE HCL (ZYRTEC ORAL) Take by mouth. No current facility-administered medications for this visit. ALLERGIES: Compazine [Prochlorperazine Edisylate] PERSONAL HISTORY: Social History Tobacco Use Smoking status: Never Smokeless tobacco: Never Vaping Use Vaping Use: Never used Substance Use Topics Alcohol use: Yes Comment: once a month Drug use: No FAMILY HISTORY: FAMILY HISTORY Problem Relation Age of Onset Hypertension Mother Heart Attack Father 60 sudden Hypertension Father No Known Problems Sister No Known Problems Brother Colon Cancer Maternal Grandfather 72 Heart disease Paternal Grandmother Heart disease Paternal Grandfather REVIEW OF SYMPTOMS: The review of systems data was entered by the nurse and reviewed by me Nursing Notes: Reyna Worthington LPN 02/01/2023 3:58 PM Signed REVIEW OF SYSTEMS: General: The patient denies fatigue, denies weight loss, denies weight gain, denies feeling hot, and denies feelings of cold. Eyes: The patient denies glaucoma, denies eye injury/surgery, wears glasses or contacts. Ear/Nose/Throat: The patient denies allergies, denies hayfever, denies ear infections, and denies bloody noses. Cardiovascular: The patient denies chest pain, denies heart disease, denies high blood pressure,denies cardiac stent, denies prior heart attack, denies irregular heart beat, denies high cholesterol, denies poor circulation, denies heart failure, other cardiac issues, denies claudication, denies cold feet, denies peripheral arterial stent. Respiratory: The patient denies tuberculosis, denies pneumonia, denies frequent cough, denies pulmonary embolism, denies shortness of breath, and denies coughing up blood. Gastrointestinal: The patient denies difficulty swallowing, denies acid reflux, denies ulcers, denies vomiting, denies jaundice/hepatitis, denies gallbladder problems, denies black or tarry stools, denies hemorrhoids, denies bleeding from rectum, denies diverticulitis, denies constipation, denies diarrhea, denies loss of stool control, and NOTES hernias. Kidney/Bladder: The patient denies kidney stones, denies urine infections, and denies bloody urine. Skin: The patient denies a history of skin cancer, denies bleeding/changing moles, and denies a history of skin rash. Neurologic: The patient NOTES a history of epilepsy/convulsions, denies headaches, denies head/spinal injuries, and denies stroke/TIA. Psychiatric: The patient denies psychiatric medications, NOTES depression, and denies voices, denies substance abuse. Endocrine: The patient denies thyroid disorders, denies diabetes, and denies hormonal problems. Hematologic: The patient denies a history of bruising, denies bleeding, and denies anemia, denies blood clots. Infections: The patient denies a history of measles and mumps, denies rheumatic fever, and NOTES sexually transmitted diseases. Musculoskeletal: The patient denies back pain/injury, denies back problems, denies sciatica, denies knee/foot trouble, denies arthritis, or denies gout. When was patient's last Mammogram screening? N/A Last Colonoscopy: no prior colonoscopy Reyna Worthington LPN PHYSICAL EXAMINATION: General: The patient is 47 year old male, well nourished, well hydrated in no acute distress. The patient is oriented to time, place, and person. VITALS: There were no vitals taken for this visit. There is no height or weight on file to calculate BMI. HEENT: Normal cephalic, ataumatic, pupils are equally round, sclera are anicteric, mucous membranes are moist, oropharynx is clear. Neck has no masses, asymmetry or lymphadenopathy. Thyroid is unremarkable. Respiratory: Clear to auscultation and percussion. Normal respiratory excursion and pattern. Cardiac: Examination is regular rate and rhythm. Abdominal exam: Soft, nontender, with no palpable masses. No hepatosplenomegaly. No palpable hernias. Rectal exam: exam deferred Extremities: no clubbing, cyanosis or edema. No adenopathy. Other: LABORATORY VALUES: As Noted RADIOLOGIC STUDIES: As Noted Assessment IMPRESSION: Abdominal pain, left lower quadrant Rectal bleeding PLAN: I plan to perform lower endoscopy. We discussed the risks and benefits of the planned endoscopy. I have informed the patient that complications can occur including failure to complete the endoscopy and perforation. The patient had the opportunity to ask questions concerning the planned endoscopy. My staff has also explained the procedure to the patient in understandable terms and has given the patient printed material concerning the procedure. The patient freely consents to surgery. I plan to use golytely bowel preparation for endoscopy Diagnoses: (R10.32) Abdominal pain, left lower quadrant (K62.5) Rectal bleeding My findings have been communicated to Dr. Francisco Javier Camara MD via shared medical record. This note will be forwarded to Dr. Francisco Javier Camara MD. Return to Clinic: The patient is instructed to follow-up with me 1 week post operatively. Jonathan Blair III, MD documented in this encounter [facility] 02-01-2023 Instructions Jonathan Blair MD - 02/01/2023 3:56 PM EDT Images from the original note were not included. Bowel Preparation Instructions for: Golytely, Nulytely, Trilyte or Colyte (polyethylene glycol 3350 and electrolytes) IF YOU DO NOT FOLLOW THESE DIRECTIONS, YOUR COLONOSCOPY WILL BE CANCELLED. [place] Instructions: Your bowel must be empty so that your doctor can clearly view your colon. Follow all of the instructions in this handout EXACTLY as they are written. Do NOT eat any solid food the ENTIRE day before your colonoscopy. Drink only clear liquids. Buy your bowel preparation at least 5 days before your colonoscopy. TRANSPORTATION on the Day of Your Exam A responsible person MUST be present with you at Check In prior to your colonoscopy and REMAIN in the endoscopy area until you are discharged. You are NOT ALLOWED to drive, take a taxi or bus, or leave the Endoscopy Center ALONE. If you do not have a responsible roll off driver (family member or friend) with you to take you home, your exam cannot be done with sedation and will be cancelled. Please bring a list of all of your current medications, including any Over-the Counter medications with you. Medications If you take insulin, diabetic medications or blood thinners such as Coumadin (warfarin), Plavix (clopidogrel), Ticlid (ticlopidine hydrochloride), Agrylin (anagrelide), Xarelto (Rivaroxaban), Pradaxa (Dabigatran), Eliquis (Apixaban), and Effient (Prasugrel). You MUST call the doctors who orders those medicines for instructions on altering the dosage before your colonoscopy. All other medications should be taken the day of the exam with a sip of water including ASPIRIN. Five (5) Days Before Your Colonoscopy Do NOT take medicines that stop diarrhea - such as Imodium, Kaopectate, or Pepto Bismol. Do NOT take fiber supplements - such as Metamucil, Citrucel, or Perdiem. Do NOT take products that contain iron - such as multi-vitamins (the label lists what is in the products). Do NOT take Vitamin E. Buy the prescription bowel preparation solution at your local pharmacy or drugstore pharmacy. 03/2019 Bowel Preparation Instructions for: Golytely, Nulytely, Trilyte or Colyte (polyethylene glycol 3350 and electrolytes) Three (3) Days Before Your Colonoscopy Do NOT eat high-fiber foods - such as popcorn, beans, seeds (flax, sunflower, quinoa), multigrain bread, nuts, salad/vegetables, or fresh and dried fruit. One (1) Day Before Your Colonoscopy Only drink clear liquids the ENTIRE DAY before your colonoscopy. Do NOT eat any solid foods. Drink at least 8 ounces of clear liquids every hour after waking up. The clear liquids you can drink include: Clear Liquid (NO RED LIQUIDS) DO NOT DRINK Gatorade, Pedialyte or Powerade Clear broth or bouillon Coffee or tea (no milk or non-dairy creamer) Carbonated and non-carbonated soft drinks Jacob-Aid or other fruit flavored drinks Strained fruit juices (no pulp) Jell-O, popsicles, hard candy Water Alcohol Milk or non-dairy creamers Noodles or vegetables in soup Juice with pulp Liquid you cannot see through Do not use tobacco/vaping products The bowel preparation solution will be consumed in two parts. Mix the solution the evening before your colonoscopy and refrigerate before drinking. You may add the flavor pack that came with the bowel preparation. Do NOT add ice, sugar or any other flavorings to the solution. Part 1 At 6:00 PM - Evening before your colonoscopy Drink an 8-oz glass of bowel preparation every 10 minutes for a total of 8 glasses. You may continue to drink clear liquids until midnight. Part 2 On the day of your colonoscopy you may drink clear liquids up to (three) 3 hours before your procedure. 4 1/2 hours before your colonoscopy Drink an 8-oz glass of bowel preparation every 10 minutes for a total of 8 glasses. Fifteen (15) minutes later, drink an 8-oz glass of clear liquids every 15 minutes for a total of 2 glasses. You may continue to drink clear liquids up to (three) 3 hours before your exam. 2 03/2019 documented in this encounter [facility] 02-01-2023 Nurse Note REVIEW OF SYSTEMS: General: The patient denies fatigue, denies weight loss, denies weight gain, denies feeling hot, and denies feelings of cold. Eyes: The patient denies glaucoma, denies eye injury/surgery, wears glasses or contacts. Ear/Nose/Throat: The patient denies allergies, denies hayfever, denies ear infections, and denies bloody noses. Cardiovascular: The patient denies chest pain, denies heart disease, denies high blood pressure,denies cardiac stent, denies prior heart attack, denies irregular heart beat, denies high cholesterol, denies poor circulation, denies heart failure, other cardiac issues, denies claudication, denies cold feet, denies peripheral arterial stent. Respiratory: The patient denies tuberculosis, denies pneumonia, denies frequent cough, denies pulmonary embolism, denies shortness of breath, and denies coughing up blood. Gastrointestinal: The patient denies difficulty swallowing, denies acid reflux, denies ulcers, denies vomiting, denies jaundice/hepatitis, denies gallbladder problems, denies black or tarry stools, denies hemorrhoids, denies bleeding from rectum, denies diverticulitis, denies constipation, denies diarrhea, denies loss of stool control, and NOTES hernias. Kidney/Bladder: The patient denies kidney stones, denies urine infections, and denies bloody urine. Skin: The patient denies a history of skin cancer, denies bleeding/changing moles, and denies a history of skin rash. Neurologic: The patient NOTES a history of epilepsy/convulsions, denies headaches, denies head/spinal injuries, and denies stroke/TIA. Psychiatric: The patient denies psychiatric medications, NOTES depression, and denies voices, denies substance abuse. Endocrine: The patient denies thyroid disorders, denies diabetes, and denies hormonal problems. Hematologic: The patient denies a history of bruising, denies bleeding, and denies anemia, denies blood clots. Infections: The patient denies a history of measles and mumps, denies rheumatic fever, and NOTES sexually transmitted diseases. Musculoskeletal: The patient denies back pain/injury, denies back problems, denies sciatica, denies knee/foot trouble, denies arthritis, or denies gout. When was patient's last Mammogram screening? N/A Last Colonoscopy: no prior colonoscopy Reyna Worthington LPN documented in this encounter [facility] 02-01-2023 Note HNO ID: [id number] Author: Francisco Javier Camara MD Service: ? Author Type: Physician Type: Progress Notes Filed: 02/01/2023 12:42 AM Note Text: This note was created using NoteWriter. Subjective Patient presents with: ER F/U Aston Napoles is a 47 year old male here with his significant other for above. He developed left sided abdominal pain over the weekend, with bright red rectal bleeding that discolored the toilet water. Symptoms worsened prompting the ER visit . His labs and urinalysis were normal. CT scan of the abdomen and pelvis showed circumferentially thickened bladder, diverticulosis, with no acute disease. He was better today. He had left breast mass and tenderness for several months. He had similar issues a few years ago with work up consistent for gynecomastia of the right breast. His medications have not changed. Review of Systems Constitutional: Negative for appetite change, fatigue, fever and unexpected weight change. Respiratory: Negative for shortness of breath. Gastrointestinal: Negative for diarrhea, nausea and vomiting. Genitourinary: Negative for difficulty urinating, dysuria and hematuria. 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 guselkumab (TREMFYA) 100 mg/mL Inject 100 mg subcutaneously once every month. DULoxetine (CYMBALTA) 30 mg capsule Take 1 capsule by mouth once daily. clotrimazole-betamethasone (LOTRISONE) cream Apply to affected area twice daily as needed. albuterol HFA (VENTOLIN HFA) 90 mcg/actuation inhaler Inhale 2 Puffs as instructed every 4 hours as needed for wheezing/shortness of breath. fluticasone (FLONASE) 50 mcg/actuation nasal spray Use 2 Sprays in each nostril once daily. Rinse mouth after use. COMPOUNDED PRESCRIPTION Increase CPAP setting to 13 cm H2O pressure. Dx: KEYLA CPAP Initiate CPAP @ 11 cm of water with humidification. Mask (per patient preference) optional chin strap (if indicated) , filters, tubing, humidifier and lifetime supplies. CETIRIZINE HCL (ZYRTEC ORAL) Take by mouth. dicyclomine (BENTYL) 20 mg tablet ondansetron orally disintegrating (ZOFRAN ODT) 4 mg disintegrating tablet No current facility-administered medications for this visit. Objective BP 130/82 (BP Site: Left Arm, BP Position: Sitting, BP Cuff Size: Large Adult) Pulse 76 Resp 18 Wt 97.1 kg (214 lb) BMI 30.71 kg/m? Physical Exam Constitutional: General: He is not in acute distress. Appearance: He is not ill-appearing. Eyes: General: No scleral icterus. Conjunctiva/sclera: Conjunctivae normal. Cardiovascular: Rate and Rhythm: Normal rate and regular rhythm. Heart sounds: No murmur heard. No gallop. Pulmonary: Effort: Pulmonary effort is normal. Breath sounds: Normal breath sounds. Chest: Breasts: Right: Normal. Left: Mass and tenderness present. No nipple discharge or skin change. Comments: Fibrocystic tissue adjacent to the areola. Abdominal: General: Bowel sounds are normal. There is no distension. Palpations: Abdomen is soft. There is no mass. Tenderness: There is abdominal tenderness. There is no right CVA tenderness, left CVA tenderness, guarding or rebound. Hernia: No hernia is present. Lymphadenopathy: Upper Body: Right upper body: No supraclavicular, axillary or pectoral adenopathy. Left upper body: No supraclavicular, axillary or pectoral adenopathy. Neurological: Mental Status: He is alert. Assessment and Plan 1. Abdominal pain, left lower quadrant - ICD9: 789.04, ICD10: R10.32 (primary diagnosis) Differential Diagnosis includes colitis. - CONSULT TO GENERAL SURGERY 2. Rectal bleeding - ICD9: 569.3, ICD10: K62.5 See above. - CONSULT TO GENERAL SURGERY 3. Subareolar mass of left breast - ICD9: 611.72, ICD10: N63.42 Observe only for now. Depending on test results, further tests will be recommended. - [facility] LEFT - BREAST LTD LEFT 4. Need for COVID-19 vaccine - ICD9: V04.89, ICD10: Z23 - [employer] COVID-19 VACCINE (2022-24 [facility]AS[place]) AGE 12+ YR Francisco Javier Camara MD [facility] 02-01-2023 History of Present illness Narrative This note was created using [employer] Solution[employer]. Subjective Patient presents with: ER F/U Aston Napoles is a 47 year old male here with his significant other for above. He developed left sided abdominal pain over the weekend, with bright red rectal bleeding that discolored the toilet water. Symptoms worsened prompting the ER visit . His labs and urinalysis were normal. CT scan of the abdomen and pelvis showed circumferentially thickened bladder, diverticulosis, with no acute disease. He was better today. He had left breast mass and tenderness for several months. He had similar issues a few years ago with work up consistent for gynecomastia of the right breast. His medications have not changed. Review of Systems Constitutional: Negative for appetite change, fatigue, fever and unexpected weight change. Respiratory: Negative for shortness of breath. Gastrointestinal: Negative for diarrhea, nausea and vomiting. Genitourinary: Negative for difficulty urinating, dysuria and hematuria. 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 guselkumab (TREMFYA) 100 mg/mL Inject 100 mg subcutaneously once every month. DULoxetine (CYMBALTA) 30 mg capsule Take 1 capsule by mouth once daily. clotrimazole-betamethasone (LOTRISONE) cream Apply to affected area twice daily as needed. albuterol HFA (VENTOLIN HFA) 90 mcg/actuation inhaler Inhale 2 Puffs as instructed every 4 hours as needed for wheezing/shortness of breath. fluticasone (FLONASE) 50 mcg/actuation nasal spray Use 2 Sprays in each nostril once daily. Rinse mouth after use. COMPOUNDED PRESCRIPTION Increase CPAP setting to 13 cm H2O pressure. Dx: KEYLA CPAP Initiate CPAP @ 11 cm of water with humidification. Mask (per patient preference) optional chin strap (if indicated) , filters, tubing, humidifier and lifetime supplies. CETIRIZINE HCL (ZYRTEC ORAL) Take by mouth. dicyclomine (BENTYL) 20 mg tablet ondansetron orally disintegrating (ZOFRAN ODT) 4 mg disintegrating tablet No current facility-administered medications for this visit. Objective BP 130/82 (BP Site: Left Arm, BP Position: Sitting, BP Cuff Size: Large Adult) Pulse 76 Resp 18 Wt 97.1 kg (214 lb) BMI 30.71 kg/m Physical Exam Constitutional: General: He is not in acute distress. Appearance: He is not ill-appearing. Eyes: General: No scleral icterus. Conjunctiva/sclera: Conjunctivae normal. Cardiovascular: Rate and Rhythm: Normal rate and regular rhythm. Heart sounds: No murmur heard. No gallop. Pulmonary: Effort: Pulmonary effort is normal. Breath sounds: Normal breath sounds. Chest: Breasts: Right: Normal. Left: Mass and tenderness present. No nipple discharge or skin change. Comments: Fibrocystic tissue adjacent to the areola. Abdominal: General: Bowel sounds are normal. There is no distension. Palpations: Abdomen is soft. There is no mass. Tenderness: There is abdominal tenderness. There is no right CVA tenderness, left CVA tenderness, guarding or rebound. Hernia: No hernia is present. Lymphadenopathy: Upper Body: Right upper body: No supraclavicular, axillary or pectoral adenopathy. Left upper body: No supraclavicular, axillary or pectoral adenopathy. Neurological: Mental Status: He is alert. Assessment and Plan 1. Abdominal pain, left lower quadrant - ICD9: 789.04, ICD10: R10.32 (primary diagnosis) Differential Diagnosis includes colitis. - CONSULT TO GENERAL SURGERY 2. Rectal bleeding - ICD9: 569.3, ICD10: K62.5 See above. - CONSULT TO GENERAL SURGERY 3. Subareolar mass of left breast - ICD9: 611.72, ICD10: N63.42 Observe only for now. Depending on test results, further tests will be recommended. - [facility] LEFT - US BREAST LTD LEFT 4. Need for COVID-19 vaccine - ICD9: V04.89, ICD10: Z23 - P[employer]ER-[employer]IONTE[employer] COVID-19 VACCINE (2022- [place]) AGE 12+ YR Francisco Javier Camara MD documented in this encounter [facility] 12-16-2022 Note HNO ID: [id number] Author: Catarina Nieto APRN.[employer] Service: ? Author Type: Nurse Practitioner Type: Progress Notes Filed: 12/16/2022 8:41 AM Note Text: CC: Patient presents with: Ear Infection: Left ear infection on 11/18 at [facility] was given Amoxicillin - now feels that it is possibly in both - dx with COVID same day. HPI Aston Napoles is a 47 year old male who presents today for above. He was treated with Augmentin on 11/18 for left otitis media. Symptoms resolved completely until about one week, developed sharp pain in the left ear and starting to have some discomfort in the right ear as well. Denies fever, chills, headaches, nasal congestion, runny nose. He has a history of allergic rhinitis, taking Zyrtec and Flonase daily. Reports issues with erectile dysfunction. Would like to discuss treatment such as Cialis. 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 Reports widespread joint pain, his flag car driver had mentioned possible psoriatic arthritis. Patient denies swelling, redness or increased warmth of the joints, malaise, night sweats, unintentional weight loss, morning stiffness that improves with activity. 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 DULoxetine (CYMBALTA) 30 mg capsule Take 1 capsule by mouth once daily. clotrimazole-betamethasone (LOTRISONE) cream Apply to affected area twice daily as needed. albuterol HFA (VENTOLIN HFA) 90 mcg/actuation inhaler Inhale 2 Puffs as instructed every 4 hours as needed for wheezing/shortness of breath. fluticasone (FLONASE) 50 mcg/actuation nasal spray Use 2 Sprays in each nostril once daily. Rinse mouth after use. COMPOUNDED PRESCRIPTION Increase CPAP setting to 13 cm H2O pressure. Dx: KEYLA CPAP Initiate CPAP @ 11 cm of water with humidification. Mask (per patient preference) optional chin strap (if indicated) , filters, tubing, humidifier and lifetime supplies. CETIRIZINE HCL (ZYRTEC ORAL) Take by mouth. FAMILY HISTORY Problem Relation Age of Onset Hypertension Mother Heart Attack Father 60 sudden Hypertension Father No Known Problems Sister No Known Problems Brother Colon Cancer Maternal Grandfather 72 Heart disease Paternal Grandmother Heart disease Paternal Grandfather Social History Tobacco Use Smoking status: Never Smokeless tobacco: Never Vaping Use Vaping Use: Never used Substance Use Topics Alcohol use: Yes Comment: once a month Drug use: No BP 136/82 Pulse 89 Temp 36.4 ?C (97.5 ?F) (Temporal) Resp 16 Wt 98 kg (216 lb) SpO2 96% BMI 30.99 kg/m? Physical Exam Constitutional: Appearance: He is not ill-appearing. HENT: Right Ear: Tympanic membrane, ear canal and external ear normal. Left Ear: Ear canal and external ear normal. A middle ear effusion is present. Tympanic membrane is erythematous and retracted. ASSESSMENT/PLAN: 1. Otitis media, recurrent, left - ICD9: 382.9, ICD10: H66.92 (primary diagnosis) - Will begin treatment with Cefdinir 300 mg x 7 days - continue with Flonase and Zyrtec - OTC analgesia prn. - Follow up in 3-5 days if symptoms persist or worsen. 2. Erectile dysfunction, unspecified erectile dysfunction type - ICD9: 607.84, ICD10: N52.9 Possibly due to medication: Cymbalta. Workup with labs for other secondary causes: - LIPID PANEL BASIC - COMP METABOLIC PANEL - TSH BLD - TESTOSTERONE, FREE AND TOTAL - CBC 3. Psoriasis - ICD9: 696.1, ICD10: L40.9 Widespread joint pain. No other symptoms consistent with psoriatic arthritis. Check labs: - SED RATE WESTERGREN - C-REACTIVE PROTEIN (CRP) If normal continue to monitor symptoms and follow-up as needed for any worsening 4. Pain in joint involving multiple sites - ICD9: 719.49, ICD10: M25.50 As above - SED RATE WESTERGREN - C-REACTIVE PROTEIN (CRP) 5. Encounter for lipid screening for cardiovascular disease - ICD9: V77.91, V81.2, ICD10: Z13.220, Z13.6 - LIPID PANEL BASIC 6. Encounter for screening for diabetes mellitus - ICD9: V77.1, ICD10: Z13.1 - HGB A1C 7. Encounter for immunization - ICD9: V03.89, ICD10: Z23 - INFLUENZA VACCINE, AGE 6 MO - 64 YR, QUADRIVALENT (AFLURIA, FLULAVAL, FLUZONE) Prescriptio (more content not included)... [facility] 12-16-2022 Miscellaneous Notes Addended by: CATAIRNA NIETO on: 12/16/2022 08:41 AM Modules accepted: Orders documented in this encounter [facility] 12-16-2022 History of Present illness Narrative CC: Patient presents with: Ear Infection: Left ear infection on 11/18 at [facility] was given Amoxicillin - now feels that it is possibly in both - dx with COVID same day. HPI Aston Napoles is a 47 year old male who presents today for above. He was treated with Augmentin on 11/18 for left otitis media. Symptoms resolved completely until about one week, developed sharp pain in the left ear and starting to have some discomfort in the right ear as well. Denies fever, chills, headaches, nasal congestion, runny nose. He has a history of allergic rhinitis, taking Zyrtec and Flonase daily. Reports issues with erectile dysfunction. Would like to discuss treatment such as Cialis. 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 Reports widespread joint pain, his flag car driver had mentioned possible psoriatic arthritis. Patient denies swelling, redness or increased warmth of the joints, malaise, night sweats, unintentional weight loss, morning stiffness that improves with activity. 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 DULoxetine (CYMBALTA) 30 mg capsule Take 1 capsule by mouth once daily. clotrimazole-betamethasone (LOTRISONE) cream Apply to affected area twice daily as needed. albuterol HFA (VENTOLIN HFA) 90 mcg/actuation inhaler Inhale 2 Puffs as instructed every 4 hours as needed for wheezing/shortness of breath. fluticasone (FLONASE) 50 mcg/actuation nasal spray Use 2 Sprays in each nostril once daily. Rinse mouth after use. COMPOUNDED PRESCRIPTION Increase CPAP setting to 13 cm H2O pressure. Dx: KEYLA CPAP Initiate CPAP @ 11 cm of water with humidification. Mask (per patient preference) optional chin strap (if indicated) , filters, tubing, humidifier and lifetime supplies. CETIRIZINE HCL (ZYRTEC ORAL) Take by mouth. FAMILY HISTORY Problem Relation Age of Onset Hypertension Mother Heart Attack Father 60 sudden Hypertension Father No Known Problems Sister No Known Problems Brother Colon Cancer Maternal Grandfather 72 Heart disease Paternal Grandmother Heart disease Paternal Grandfather Social History Tobacco Use Smoking status: Never Smokeless tobacco: Never Vaping Use Vaping Use: Never used Substance Use Topics Alcohol use: Yes Comment: once a month Drug use: No BP 136/82 Pulse 89 Temp 36.4 C (97.5 F) (Temporal) Resp 16 Wt 98 kg (216 lb) SpO2 96% BMI 30.99 kg/m Physical Exam Constitutional: Appearance: He is not ill-appearing. HENT: Right Ear: Tympanic membrane, ear canal and external ear normal. Left Ear: Ear canal and external ear normal. A middle ear effusion is present. Tympanic membrane is erythematous and retracted. ASSESSMENT/PLAN: 1. Otitis media, recurrent, left - ICD9: 382.9, ICD10: H66.92 (primary diagnosis) - Will begin treatment with Cefdinir 300 mg x 7 days - continue with Flonase and Zyrtec - OTC analgesia prn. - Follow up in 3-5 days if symptoms persist or worsen. 2. Erectile dysfunction, unspecified erectile dysfunction type - ICD9: 607.84, ICD10: N52.9 Possibly due to medication: Cymbalta. Workup with labs for other secondary causes: - LIPID PANEL BASIC - COMP METABOLIC PANEL - TSH BLD - TESTOSTERONE, FREE AND TOTAL - CBC 3. Psoriasis - ICD9: 696.1, ICD10: L40.9 Widespread joint pain. No other symptoms consistent with psoriatic arthritis. Check labs: - SED RATE WESTERGREN - C-REACTIVE PROTEIN (CRP) If normal continue to monitor symptoms and follow-up as needed for any worsening 4. Pain in joint involving multiple sites - ICD9: 719.49, ICD10: M25.50 As above - SED RATE WESTERGREN - C-REACTIVE PROTEIN (CRP) 5. Encounter for lipid screening for cardiovascular disease - ICD9: V77.91, V81.2, ICD10: Z13.220, Z13.6 - LIPID PANEL BASIC 6. Encounter for screening for diabetes mellitus - ICD9: V77.1, ICD10: Z13.1 - HGB A1C 7. Encounter for immunization - ICD9: V03.89, ICD10: Z23 - INFLUENZA VACCINE, AGE 6 MO - 64 YR, QUADRIVALENT (AFLURIA, FLULAVAL, FLUZONE) Prescription instructions reviewed with patient as applicable. Potential red flag symptoms discussed with the patient. Reviewed appropriate action plan to take if red flag symptoms occur. Patient agreeable to treatment plan. Catarina Nieto APRN.[employer] documented in this encounter [facility] 11-04-2022 Note HNO ID: [id number] Author: Robyn Perdue APRN.HAND SINGER Service: ? Author Type: Nurse Specialist Type: Progress Notes Filed: 11/04/2022 7:42 AM Note Text: SUBJECTIVE: HEPATITIS B(1 of 3 - 3-dose series) Never done HEPATITIS A(1 of 2 - Risk 2-dose series) Never done DIABETES SCREEN due on 11/27/2022 HPI Aston Napoles is a 47 year old male. 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 He reports a presumed bug bite while sleeping approximately 2 days ago. He did not see the insect. He notes that the wound has pruritic and now painful. Arm is swelling and red. No reported fever. No reported drainage. Review of Systems Constitutional: Negative. Skin: Positive for rash and wound. Objective BP 128/82 Pulse 83 Temp 36.6 ?C (97.8 ?F) Resp 16 Wt 96.2 kg (212 lb) SpO2 98% BMI 30.42 kg/m? Physical Exam Vitals and nursing note reviewed. Constitutional: Appearance: Normal appearance. HENT: Head: Normocephalic and atraumatic. Eyes: Conjunctiva/sclera: Conjunctivae normal. Cardiovascular: Rate and Rhythm: Normal rate. Pulmonary: Effort: Pulmonary effort is normal. Skin: General: Skin is warm and dry. Comments: Wound approximately 1/2 inch in diameter left forearm with red wound base, surrounding erythema and warmth approximately 10 inch in diameter from wound, no induration, wheal, vesicles or necrosis is present Neurological: Mental Status: He is alert. ALLERGIES Allergen Reactions Compazine [Prochlor* Other: See Comments Jittery feeling Medication DULoxetine (CYMBALTA) 30 mg capsule Take 1 capsule by mouth once daily. clotrimazole-betamethasone (LOTRISONE) cream Apply to affected area twice daily as needed. albuterol HFA (VENTOLIN HFA) 90 mcg/actuation inhaler Inhale 2 Puffs as instructed every 4 hours as needed for wheezing/shortness of breath. fluticasone (FLONASE) 50 mcg/actuation nasal spray Use 2 Sprays in each nostril once daily. Rinse mouth after use. COMPOUNDED PRESCRIPTION Increase CPAP setting to 13 cm H2O pressure. Dx: KEYLA CPAP Initiate CPAP @ 11 cm of water with humidification. Mask (per patient preference) optional chin strap (if indicated) , filters, tubing, humidifier and lifetime supplies. CETIRIZINE HCL (ZYRTEC ORAL) Take by mouth. benzonatate (TESSALON PERLES) 100 mg capsule Take 1 capsule by mouth three times daily as needed for cough. (Patient not taking: Reported on 11/04/2022) 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 02/04/2019 Seasonal allergic rhinitis 02/27/2018 Seizure disorder (HCC) 2001 twice initially, then none on medication for 9 years, weaned off successfully Somnolence, daytime 02/27/2018 Social History Tobacco Use Smoking status: Never Smokeless tobacco: Never Vaping Use Vaping Use: Never used Substance Use Topics Alcohol use: Yes Comment: once a month Drug use: No ASSESSMENT/PLAN: 1. Bug bite, initial encounter - ICD9: 919.4, ICD10: W57.XXXA (primary diagnosis) Notes presumed bug bite that occurred about 2 days ago while sleeping. Did not see the insect. Now with erythema and swelling of the left arm surrounding this area. Notes pruritic and painful. His exam and history is consistent with local histamine reaction plus skin infection. May continue on with cetirizine. Recommend cleansing the area with soap and water. May use ice or cold pack in the area. - DOXYCYCLINE HYCLATE 100 MG TABLET - MUPIROCIN 2 % TOPICAL OINTMENT - TRIAMCINOLONE ACETONIDE 0.1 % TOPICAL CREAM - MUPIROCIN 2 % TOPICAL OINTMENT 2. Skin infection - ICD9: 686.9, ICD10: L08.9 See patient instructions, recheck next Tuesday, may cancel if improved/resolved. Robyn Perdue APRN.HAND SINGER Medical Decision Making: Problems: Low: Acute, uncomplicated illness or injury Risk: Moderate: Drug management Medical Decision Making Level: 3 - Low [facility] 11-04-2022 Instructions Robyn Perdue APRN.CNS - 11/04/2022 7:27 AM EDT Treatment -- Insect bites and local reactions should be washed with soap and water. Reduction of local edema may be induced with cooling (ice or cold pack). Apply Bactroban ointment morning and evening to the area. Take antibiotic as ordered, try to get 2 doses in today. This area should look better with treatment If any severe or concerning symptoms please go to the emergency department. Return for recheck on Tuesday at 7 a.m. if not improving. documented in this encounter [facility] 11-04-2022 History of Present illness Narrative SUBJECTIVE: HEPATITIS B(1 of 3 - 3-dose series) Never done HEPATITIS A(1 of 2 - Risk 2-dose series) Never done DIABETES SCREEN due on 11/27/2022 HPI Aston Napoles is a 47 year old male. 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 He reports a presumed bug bite while sleeping approximately 2 days ago. He did not see the insect. He notes that the wound has pruritic and now painful. Arm is swelling and red. No reported fever. No reported drainage. Review of Systems Constitutional: Negative. Skin: Positive for rash and wound. Objective BP 128/82 Pulse 83 Temp 36.6 C (97.8 F) Resp 16 Wt 96.2 kg (212 lb) SpO2 98% BMI 30.42 kg/m Physical Exam Vitals and nursing note reviewed. Constitutional: Appearance: Normal appearance. HENT: Head: Normocephalic and atraumatic. Eyes: Conjunctiva/sclera: Conjunctivae normal. Cardiovascular: Rate and Rhythm: Normal rate. Pulmonary: Effort: Pulmonary effort is normal. Skin: General: Skin is warm and dry. Comments: Wound approximately 1/2 inch in diameter left forearm with red wound base, surrounding erythema and warmth approximately 10 inch in diameter from wound, no induration, wheal, vesicles or necrosis is present Neurological: Mental Status: He is alert. ALLERGIES Allergen Reactions Compazine [Prochlor* Other: See Comments Jittery feeling Medication DULoxetine (CYMBALTA) 30 mg capsule Take 1 capsule by mouth once daily. clotrimazole-betamethasone (LOTRISONE) cream Apply to affected area twice daily as needed. albuterol HFA (VENTOLIN HFA) 90 mcg/actuation inhaler Inhale 2 Puffs as instructed every 4 hours as needed for wheezing/shortness of breath. fluticasone (FLONASE) 50 mcg/actuation nasal spray Use 2 Sprays in each nostril once daily. Rinse mouth after use. COMPOUNDED PRESCRIPTION Increase CPAP setting to 13 cm H2O pressure. Dx: KEYLA CPAP Initiate CPAP @ 11 cm of water with humidification. Mask (per patient preference) optional chin strap (if indicated) , filters, tubing, humidifier and lifetime supplies. CETIRIZINE HCL (ZYRTEC ORAL) Take by mouth. benzonatate (TESSALON PERLES) 100 mg capsule Take 1 capsule by mouth three times daily as needed for cough. (Patient not taking: Reported on 11/04/2022) 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 02/04/2019 Seasonal allergic rhinitis 02/27/2018 Seizure disorder (HCC) 2001 twice initially, then none on medication for 9 years, weaned off successfully Somnolence, daytime 02/27/2018 Social History Tobacco Use Smoking status: Never Smokeless tobacco: Never Vaping Use Vaping Use: Never used Substance Use Topics Alcohol use: Yes Comment: once a month Drug use: No ASSESSMENT/PLAN: 1. Bug bite, initial encounter - ICD9: 919.4, ICD10: W57.XXXA (primary diagnosis) Notes presumed bug bite that occurred about 2 days ago while sleeping. Did not see the insect. Now with erythema and swelling of the left arm surrounding this area. Notes pruritic and painful. His exam and history is consistent with local histamine reaction plus skin infection. May continue on with cetirizine. Recommend cleansing the area with soap and water. May use ice or cold pack in the area. - DOXYCYCLINE HYCLATE 100 MG TABLET - MUPIROCIN 2 % TOPICAL OINTMENT - TRIAMCINOLONE ACETONIDE 0.1 % TOPICAL CREAM - MUPIROCIN 2 % TOPICAL OINTMENT 2. Skin infection - ICD9: 686.9, ICD10: L08.9 See patient instructions, recheck next Tuesday, may cancel if improved/resolved. Robyn Perdue APRN.CNS Medical Decision Making: Problems: Low: Acute, uncomplicated illness or injury Risk: Moderate: Drug management Medical Decision Making Level: 3 - Low documented in this encounter [facility] 09-02-2022 Note HNO ID: [id number] Author: Robyn Perdue APRN.HAND SINGER Service: ? Author Type: Nurse Specialist Type: Progress Notes Filed: 09/02/2022 12:46 PM Note Text: PCP: Francisco Javier Camara MD SUBJECTIVE Aston Napoles is a 47 year old male. 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 New notes baseline temperature tends to run lower than average, home temperatures have been 98 ?F range. Did have Covid19 March 2022, May 2022. Has had vaccines. Symptoms include: Fever (?100.4F): No or Chills: Yes, perceived Cough: Yes Shortness of breath: Yes or Difficulty breathing: No Fatigue: Yes Muscle aches: Yes Headache: Yes New loss of smell or taste: No Sore throat: Yes Nasal congestion: No or Rhinorrhea: No Nausea: No or Vomiting: No Diarrhea: No OTC meds/remedies that patient has tried: cetirizine, dayquil, nyquil. High risk category assessment No high risk factors Exposures: Sick contacts? Yes Family or close contacts with confirmed/probable COVID-19 in last 14 days? 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 OBJECTIVE PHYSICAL EXAM: BP 126/88 Pulse 71 Temp 36.8 ?C (98.2 ?F) Resp 16 Wt 95.7 kg (211 lb) SpO2 99% BMI 30.28 kg/m? General appearance: alert, cooperative, pleasant, in no acute distress Head: Normocephalic Eyes: conjunctiva/corneas normal Ears: R TM - clear with good landmarks, L TM - cerumen Nose: clear Oropharynx: moist without lesions Neck: supple and small, benign anterior cervical nodes bilaterally Heart: regular rate and rhythm, without murmur Lungs: clear to auscultation, without rales or wheeze, good air exchange, +dry cough ASSESSMENT/PLAN (B34.9) Viral illness (primary encounter diagnosis) (R05.1) Acute cough ASSESSMENT/PLAN: 1. Viral illness - ICD9: 079.99, ICD10: B34.9 (primary diagnosis) - Discussed viral etiology and rationale for treatment. - Symptomatic treatment with prn analgesia - Supportive care with fluids and rest Stay way from others for now until feeling improved. - COVID WITH FLUA+B, ROUTINE - BENZONATATE 100 MG CAPSULE 2. Acute cough - ICD9: 786.2, ICD10: R05.1 - COVID WITH FLUA+B, ROUTINE - BENZONATATE 100 MG CAPSULE Robyn Perdue, VARNISHER PLASTICOATER.HAND SINGER - COVID swab collected at time of office visit - Discussed symptom monitoring and supportive care This patient encounter involved the screening or treatment of novel coronavirus infection (COVID-19). Medical Decision Making: Problems: Low: Acute, uncomplicated illness or injury Data: Unique test(s) ordered: 1 Risk: Moderate: Drug management Medical Decision Making Level: 3 - Low [facility] 07-21-2022 Miscellaneous Notes TANVIR: 03/11/2022 Last refill: 06/25/2021 QTY: 90 Refills: 3 Patient's request for medication is as follows: Requested Prescriptions Pending Prescriptions Disp Refills DULoxetine (CYMBALTA) 30 mg capsule 90 capsule 3 Sig: Take 1 capsule by mouth once daily. Please approve the above prescription(s) to electronically send to pharmacy. Abhinav Sanchez Ma Patient has been identified by name and date of : Yes Requested Prescriptions Pending Prescriptions Disp Refills DULoxetine (CYMBALTA) 30 mg capsule 90 capsule 3 Sig: Take 1 capsule by mouth once daily. RX INSTRUCTIONS: Patient aware RX will be sent to pharmacy. No need to notify patient. Milvia Lassiter Pss documented in this encounter [facility] 05-25-2022 Miscellaneous Notes Patient notified of below recommendations, verbalized understanding. Rebecca Francisco LPN Okay to take Tessalon Perles. Also recommend using albuterol inhaler for the coughing spells. Follow-up in one week if no improvement in cough or sooner if any worsening Catarina Nieto APRN.CARINA Pt was seen 05/17/22 and was given atb for double ear infection. Pt reports he finished the atb and ears are doing better. Pt reports he has nasal drainage and a dry , non-productive cough. Pt reports no fever, SOB. Pt reports he has coughing spells that feel like he is going to pass out. Pt reports no chest congestion. Pt reports he has Tessalon Perles from when he was sick before and is asking if he can take those or if something else would work better. Pt reports he is taking zyrtec and using flonase nasal spray. Cynthia Hdez LPN documented in this encounter [facility] 05-17-2022 Note HNO ID: [id number] Author: Catarina Nieto APRN.CARINA Service: ? Author Type: Nurse Practitioner Type: Progress Notes Filed: 05/17/2022 1:52 PM Note Text: CC: Patient presents with: c/o sinus infection , clogged ears and ear pain HPI: Aston Napoles is a 47 year old male who presents to the office with complaint of respiratory symptoms for a week. He [place] about 10 days ago. Symptoms are improving Associated symptoms includes facial pain/pressure, ear pain, ear pressure , cough, and dyspnea. Treatments tried include OTC cold medicine with temporary relief of symptoms. Sick contacts: unknown. History of asthma, frequent episodes of bronchitis, chronic bronchitis, bronchiectasis or COPD: No Smoker: No Seasonal/environmental allergies: Yes The ROS is otherwise negative. The patient's pmh, medications, allergies, and past visits are reviewed. PHYSICAL EXAM: BP 125/80 Pulse 94 Temp 36 ?C (96.8 ?F) (Temporal) Resp 16 Wt 96.2 kg (212 lb) SpO2 98% BMI 30.42 kg/m? General appearance: tired/ill appearing, alert, cooperative, pleasant, in no acute distress Head: Normocephalic Eyes: conjunctiva pink and moist, no icterus, sclera white, non-injected Ears: Right ear: External ear/canal- Normal, TM - dull, erythematous, bulging. Left ear: External ear/canal- Normal, TM - dull, erythematous, bulging Nose: sinus tenderness over maxillary sinuses bilateral. Oropharynx:No erythema, exudates or tonsillar hypertrophy. Neck:supple and no adenopathy Heart: Negative. RRR without obvious murmur, gallop, or rubs. No ectopy. Lungs: clear to auscultation, without rales or wheeze, good air exchange ASSESSMENT/PLAN: 1. Non-recurrent acute suppurative otitis media of both ears without spontaneous rupture of tympanic membranes - ICD9: 382.00, ICD10: H66.003 - Will begin treatment with Augmentin 875 mg PO BID for 7 days - The patient should also be given OTC cough and cold meds as needed and Flonase for the first 5-7 days of treatment. - Supportive care with plenty of fluids, rest, and analgesia prn. - Follow up in 3-5 days if symptoms persist or worsen. Prescription instructions reviewed with patient as applicable. Potential red flag symptoms discussed with the patient. Reviewed appropriate action plan to take if red flag symptoms occur. Patient agreeable to treatment plan. Catarina Nieto, BETZY.[facility] 05-17-2022 History of Present illness Narrative CC: Patient presents with: c/o sinus infection , clogged ears and ear pain HPI: Aston Napoles is a 47 year old male who presents to the office with complaint of respiratory symptoms for a week. He [place] about 10 days ago. Symptoms are improving Associated symptoms includes facial pain/pressure, ear pain, ear pressure , cough, and dyspnea. Treatments tried include OTC cold medicine with temporary relief of symptoms. Sick contacts: unknown. History of asthma, frequent episodes of bronchitis, chronic bronchitis, bronchiectasis or COPD: No Smoker: No Seasonal/environmental allergies: Yes The ROS is otherwise negative. The patient's pmh, medications, allergies, and past visits are reviewed. PHYSICAL EXAM: BP 125/80 Pulse 94 Temp 36 C (96.8 F) (Temporal) Resp 16 Wt 96.2 kg (212 lb) SpO2 98% BMI 30.42 kg/m General appearance: tired/ill appearing, alert, cooperative, pleasant, in no acute distress Head: Normocephalic Eyes: conjunctiva pink and moist, no icterus, sclera white, non-injected Ears: Right ear: External ear/canal- Normal, TM - dull, erythematous, bulging. Left ear: External ear/canal- Normal, TM - dull, erythematous, bulging Nose: sinus tenderness over maxillary sinuses bilateral. Oropharynx:No erythema, exudates or tonsillar hypertrophy. Neck:supple and no adenopathy Heart: Negative. RRR without obvious murmur, gallop, or rubs. No ectopy. Lungs: clear to auscultation, without rales or wheeze, good air exchange ASSESSMENT/PLAN: 1. Non-recurrent acute suppurative otitis media of both ears without spontaneous rupture of tympanic membranes - ICD9: 382.00, ICD10: H66.003 - Will begin treatment with Augmentin 875 mg PO BID for 7 days - The patient should also be given OTC cough and cold meds as needed and Flonase for the first 5-7 days of treatment. - Supportive care with plenty of fluids, rest, and analgesia prn. - Follow up in 3-5 days if symptoms persist or worsen. Prescription instructions reviewed with patient as applicable. Potential red flag symptoms discussed with the patient. Reviewed appropriate action plan to take if red flag symptoms occur. Patient agreeable to treatment plan. Catarina Nieto APRN.CNP documented in this encounter [facility] 04-15-2022 Miscellaneous Notes Patient has been identified by name and date of : Yes Last office visit in this department: 01/11/2022 RX INSTRUCTIONS: Patient aware RX will be sent to pharmacy. No need to notify patient. Patient phones requesting refills as follows: Requested Prescriptions Pending Prescriptions Disp Refills clotrimazole-betamethasone (LOTRISONE) cream 45 g 1 Sig: Apply to affected area twice daily as needed. Please review and advise. Anuradha De La Rosa documented in this encounter [facility] 03-11-2022 Note HNO ID: [id number] Author: Pamela Nieto APRN.CNP Service: ? Author Type: Nurse Practitioner Type: Progress Notes Filed: 03/11/2022 3:04 PM Note Text: This Team Access Model visit is a virtual encounter. It required patient-provider interaction for the medical decision making as documented below. Patient agrees to the visit: Yes Patient Location: [place] CC: Patient presents with: Covid HPI Aston Napoles is a 47 year old male who is contacted today for a virtual visit. This is an established patient of Dr. Francisco Javier Camara MD. Symptoms started today. Had a home COVID test which was positive and spouse was also positive today too. Has a sore throat, left ear pain, sinus congestion, body aches, headache, shortness of breath, chills, sweating, some dizziness, and fatigue. Has a nonproductive cough and had a coughing fit that made it difficult for him to catch his breath. Had Covid a few years ago with similar shortness of breath and cough which he was prescribed an albuterol inhaler which helped. Would like a refill on this since the other inhaler is . Denies wheezing, fever, nausea, vomiting, or diarrhea. REVIEW OF SYSTEMS General: no recurrent infections and See HPI HEENT: no changes in hearing, no visual changes, no nose bleeds Respiratory: See HPI Cardiovascular: no chest pain, no chest pressure, no palpitations, and no swelling GI: No nausea, vomiting, or diarrhea Neurologic: No weakness, numbness, tingling, syncope. PAST MEDICAL HISTORY Diagnosis Date Anxiety and depression 02/27/2018 KELYA (obstructive sleep apnea) 04/13/2018 Recurrent type 2 herpes simplex of other site 02/04/2019 Seasonal allergic rhinitis 02/27/2018 Seizure disorder (HCC) 2001 twice initially, then none on medication for 9 years, weaned off successfully Somnolence, daytime 02/27/2018 PAST SURGICAL HISTORY Procedure Laterality Date APPENDECTOMY 1997 EXCISION PILONIDAL CYST/SINUS SIMPLE INGUINAL HERNIA REPAIR HX Bilateral 1993 1992 and 1993 each side TONSILLECTOMY HX 1979 ALLERGIES Compazine [Prochlorperazine Edisylate] MEDICATIONS fluticasone (FLONASE) 50 mcg/actuation nasal spray Use 2 Sprays in each nostril once daily. Rinse mouth after use. DULoxetine (CYMBALTA) 30 mg capsule Take 1 capsule by mouth once daily. clotrimazole-betamethasone (LOTRISONE) cream Apply to affected area twice daily as needed. albuterol HFA (VENTOLIN HFA) 90 mcg/actuation inhaler Inhale 2 Puffs as instructed every 4 hours as needed for Wheezing/Shortness of Breath. COMPOUNDED PRESCRIPTION Increase CPAP setting to 13 cm H2O pressure. Dx: KEYLA CPAP Initiate CPAP @ 11 cm of water with humidification. Mask (per patient preference) optional chin strap (if indicated) , filters, tubing, humidifier and lifetime supplies. CETIRIZINE HCL (ZYRTEC ORAL) Take by mouth. FAMILY HISTORY Problem Relation Age of Onset Hypertension Mother Heart Attack Father 60 sudden Hypertension Father No Known Problems Sister No Known Problems Brother Colon Cancer Maternal Grandfather 72 Heart disease Paternal Grandmother Heart disease Paternal Grandfather Social History Tobacco Use Smoking status: Never Smokeless tobacco: Never Vaping Use Vaping Use: Never used Substance Use Topics Alcohol use: Yes Comment: once a month Drug use: No EXAM: Virtual visit completed using video, limited exam completed. GENERAL: alert and appropriate, in no distress, well-hydrated, well nourished, appears tired, and coughs occasionally RESPIRATORY: breathing non-labored CHEST: equal chest rise with normal respiratory effort DATA REVIEWED: No new labs HEPATITIS B(1 of 3 - 3-dose series) Never done HEPATITIS A(1 of 2 - Risk 2-dose series) Never done DIABETES SCREEN due on 11/27/2022 COLORECTAL CANCER SCREENING due on 01/26/2024 LIPID SCREEN due on 01/16/2025 DTAP,TDAP,TD(2 - Td or Tdap) due on 04/02/2028 INFLUENZA Completed HEPATITIS C SCREENING Completed HIV SCREENING Completed COVID-19 VACCINE Completed ASSESSMENT/PLAN: 1. COVID - ICD9: 079.89, ICD10: U07.1 - paxlovid indicated for obesity and no contraindications noted. - albuterol inhaler refilled and tessalon as ordered for cough - quarantine for 5 days but need to be fever free for 24 hours without fever reducing medications and have improving symptoms prior to quarantine being lifted. - plenty of rest and increase fluid intake - follow up in 3-5 days if no improvement - Go to Er for increased shortness of breath, chest pain, lethargy , or other urgent concern Prescription instructions reviewed with patient as applicable. Potential red flag symptoms discussed with the patient. Reviewed appropriate action plan to take if red flag symptoms occur. Patient agreeable to treatment plan. During this patient visit I have spent approximately 15 minutes in counseling regarding treatment options, medications, and coord (more content not included)... [facility] 03-11-2022 Instructions Pamela Nieto APRN.CARINA - 03/11/2022 2:47 PM EST FACT SHEET FOR PATIENTS, PARENTS, AND CAREGIVERS EMERGENCY USE AUTHORIZATION (EUA) OF PAXLOVID FOR CORONAVIRUS DISEASE 2019 (COVID-19) You are being given this Fact Sheet because your healthcare provider believes it is necessary to provide you with PAXLOVID for the treatment of osye-ck-hjodqfrh coronavirus disease (COVID-19) caused by the SARS-CoV-2 virus. This Fact Sheet contains information to help you understand the risks and benefits of taking the PAXLOVID you have received or may receive. The U.S. Food and Drug Administration (FDA) has issued an Emergency Use Authorization (EUA) to make PAXLOVID available during the COVID-19 pandemic (for more details about an EUA please see What is an Emergency Use Authorization? at the end of this document). PAXLOVID is not an FDA-approved medicine in the [place]. Read this Fact Sheet for information about PAXLOVID. Talk to your healthcare provider about your options or if you have any questions. It is your choice to take PAXLOVID. What is COVID-19? COVID-19 is caused by a virus called a coronavirus. You can get COVID-19 through close contact with another person who has the virus. COVID-19 illnesses have ranged from very chst-vk-dwdwvq, including illness resulting in . While information so far suggests that most COVID-19 illness is mild, serious illness can happen and may cause some of your other medical conditions to become worse. Older people and people of all ages with severe, long lasting (chronic) medical conditions like heart disease, lung disease, and diabetes, for example seem to be at higher risk of being hospitalized for COVID-19. What is PAXLOVID? PAXLOVID is an investigational medicine used to treat qqzz-ga-vagzghiv COVID-19 in adults and children [12 years of age and older weighing at least 88 pounds (40 kg)] with positive results of direct SARS-CoV-2 viral testing, and who are at high risk for progression to severe COVID-19, including hospitalization or . PAXLOVID is investigational because it is still being studied. There is limited information about the safety and effectiveness of using PAXLOVID to treat people with jfkr-oq-gbbpglpl COVID-19. The FDA has authorized the emergency use of PAXLOVID for the treatment of hjpo-lv-ngpamsgk COVID-19 in adults and children [12 years of age and older weighing at least 88 pounds (40 kg)] with a positive test for the virus that causes COVID-19, and who are at high risk for progression to severe COVID-19, including hospitalization or , under an EUA. 1 Revised: 26 June 2021 What should I tell my healthcare provider before I take PAXLOVID? Tell your healthcare provider if you: Have any allergies Have liver or kidney disease Are or plan to become Are a child Have any serious illnesses Tell your healthcare provider about all the medicines you take, including prescription and jcoy-khm-jbhbsmt medicines, vitamins, and herbal supplements. Some medicines may interact with PAXLOVID and may cause serious side effects. Keep a list of your medicines to show your healthcare provider and pharmacist when you get a new medicine. You can ask your healthcare provider or pharmacist for a list of medicines that interact with PAXLOVID. Do not start taking a new medicine without telling your healthcare provider. Your healthcare provider can tell you if it is safe to take PAXLOVID with other medicines. Tell your healthcare provider if you are taking combined hormonal contraceptive. PAXLOVID may affect how your control pills work. Females who are able to become should use another effective alternative form of contraception or an additional barrier method of contraception. Talk to your healthcare provider if you have any questions about contraceptive methods that might be right for you. How do I take PAXLOVID? PAXLOVID consists of 2 medicines: nirmatrelvir and ritonavir. Take 2 pink tablets of nirmatrelvir with 1 white tablet of ritonavir by mouth 2 times each day (in the morning and in the evening) for 5 days. For each dose, take all 3 tablets at the same time. If you have kidney disease, talk to your healthcare provider. You may need a different dose. Swallow the tablets whole. Do not chew, break, or crush the tablets. Take PAXLOVID with or without food. Do not stop taking PAXLOVID without talking to your healthcare provider, even if you feel better. If you miss a dose of PAXLOVID within 8 hours of the time it is usually taken, take it as soon as you remember. If you miss a dose by more than 8 hours, skip the missed dose and take the next dose at your regular time. Do not take 2 doses of PAXLOVID at the same time. If you take too much PAXLOVID, call your healthcare provider or go to the nearest hospital emergency room right away. If you are taking a ritonavir-or cobicistat-containing medicine to treat hepatitis C or Human Immunodeficiency Virus (HIV), you should continue to take your medicine as prescribed by your healthcare provider. Talk to your healthcare provider if you do not feel better or if you feel worse after 5 days. Who should generally not take PAXLOVID? Do not take PAXLOVID if: You are allergic to nirmatrelvir, ritonavir, or any of the ingredients in PAXLOVID You are taking any of the following medicines: Alfuzosin Pethidine, propoxyphene Ranolazine Amiodarone, dronedarone, flecainide, propafenone, quinidine Colchicine Lurasidone, pimozide, clozapine Dihydroergotamine, ergotamine, methylergonovine Lovastatin, simvastatin Sildenafil (Revatio ) for pulmonary arterial hypertension (PAH) Triazolam, oral midazolam Apalutamide Carbamazepine, phenobarbital, phenytoin Rifampin [place] Wort (hypericum perforatum) Taking PAXLOVID with these medicines may cause serious or life-threatening side effects or affect how PAXLOVID works. These are not the only medicines that may cause serious side effects if taken with PAXLOVID. PAXLOVID may increase or decrease the levels of multiple other medicines. It is very important to tell your healthcare provider about all of the medicines you are taking because additional laboratory tests or changes in the dose of your other medicines may be necessary while you are taking PAXLOVID. Your healthcare provider may also tell you about specific symptoms to watch out for that may indicate that you need to stop or decrease the dose of some of your other medicines. What are the important possible side effects of PAXLOVID? Possible side effects of PAXLOVID are: Allergic Reactions. Allergic reactions can happen in people taking PAXLOVID, even after only 1 dose. Stop taking PAXLOVID and call your healthcare provider right away if you get any of the following symptoms of an allergic reaction: hives trouble swallowing or breathing swelling of the mouth, lips, or face throat tightness hoarseness skin rash Liver Problems. Tell your healthcare provider right away if you have any of these signs and symptoms of liver problems: loss of appetite, yellowing of your skin and the whites of eyes (jaundice), dark-colored urine, pale colored stools and itchy skin, stomach area (abdominal) pain. Resistance to HIV Medicines. If you have untreated HIV infection, PAXLOVID may lead to some HIV medicines not working as well in the future. Other possible side effects include: altered sense of taste diarrhea high blood pressure muscle aches These are not all the possible side effects of PAXLOVID. Not many people have taken PAXLOVID. Serious and unexpected side effects may happen. PAXLOVID is still being studied, so it is possible that all of the risks are not known at this time. What other treatment choices are there? Veklury (remdesivir) is FDA-approved for the treatment of jhrc-vl-yzeubnbh COVID-19 in certain adults and children. Talk with your doctor to see if Veklury is appropriate for you. Like PAXLOVID, FDA may also allow for the emergency use of other medicines to treat people with COVID-19. Go to https://www.fda.gov/emergency-prep aredness-andresponse/meh-pcwtj-igq kbqwviy-giw-gxtllo-framework/emerg nzrt-wtj-wyiqjpbjzrejx for information on the emergency use of other medicines that are authorized by FDA to treat people with COVID-19. Your healthcare provider may talk with you about clinical trials for which you may be eligible. It is your choice to be treated or not to be treated with PAXLOVID. Should you decide not to receive it or for your child not to receive it, it will not change your standard medical care. What if I am or ? There is sprue knocker treating women or mothers with PAXLOVID. For a mother and unborn baby, the benefit of taking PAXLOVID may be greater than the risk from the treatment. If you are , discuss your options and specific situation with your healthcare provider. It is recommended that you use effective barrier contraception or do not have sexual activity while taking PAXLOVID. If you are , discuss your options and specific situation with your healthcare provider. How do I report side effects with PAXLOVID? Contact your healthcare provider if you have any side effects that bother you or do not go away. Report side effects to FDA MedWatch at www.fda.gov/medwatch or call 4-561-HTF2469 or you can report side effects to [facility]. at the contact information provided below. Website Fax number Telephone number [employer] How should I store PAXLOVID? Store PAXLOVID tablets at room temperature, between 68?F to 77?F (20?C to 25?C). How can I learn more about COVID-19? Ask your healthcare provider. Visit https://www.cdc.gov/COVID19. Contact your local or state public health department. What is an Emergency Use Authorization (EUA)? The [place] FDA has made PAXLOVID available under an emergency access mechanism called an Emergency Use Authorization (EUA). The EUA is supported by a [place] of Health and Human Service (HHS) declaration that circumstances exist to justify the emergency use of drugs and biological products during the COVID-19 pandemic. PAXLOVID for the treatment of awmw-kv-yvzpasuy COVID-19 in adults and children [12 years of age and older weighing at least 88 pounds (40 kg)] with positive results of direct SARS-CoV-2 viral testing, and who are at high risk for progression to severe COVID-19, including hospitalization or , has not undergone the same type of review as an FDA-approved product. In issuing an EUA under the COVID-19 public health emergency, the FDA has determined, among other things, that based on the total amount of scientific evidence available including data from adequate and well-controlled clinical trials, if available, it is reasonable to believe that the product may be effective for diagnosing, treating, or preventing COVID-19, or a serious or life-threatening disease or condition caused by COVID-19; that the known and potential benefits of the product, when used to diagnose, treat, or prevent such disease or condition, outweigh the known and potential risks of such product; and that there are no adequate, approved, and available alternatives. All of these criteria must be met to allow for the product to be used in the treatment of patients during the COVID-19 pandemic. The EUA for PAXLOVID is in effect for the duration of the COVID-19 declaration justifying emergency use of this product, unless terminated or revoked (after which the products may no longer be used under the EUA). Additional Information For general questions, visit the website or call the telephone number provided below. Website Telephone number www.[employer] [facility] ([phone]) You can also go to [email or web address] or call for more information. [employer] by [employer] [place] [address] [id number] Revised: 26 June 2021 FACT SHEET FOR PATIENTS, PARENTS, AND CAREGIVERS EMERGENCY USE AUTHORIZATION (EUA) OF PAXLOVID FOR CORONAVIRUS DISEASE 2019 (COVID-19) You are being given this Fact Sheet because your healthcare provider believes it is necessary to provide you with PAXLOVID for the treatment of dotk-xy-vbwsqvit coronavirus disease (COVID-19) caused by the SARS-CoV-2 virus. This Fact Sheet contains information to help you understand the risks and benefits of taking the PAXLOVID you have received or may receive. The U.S. Food and Drug Administration (FDA) has issued an Emergency Use Authorization (EUA) to make PAXLOVID available during the COVID-19 pandemic (for more details about an EUA please see What is an Emergency Use Authorization? at the end of this document). PAXLOVID is not an FDA-approved medicine in the [place]. Read this Fact Sheet for information about PAXLOVID. Talk to your healthcare provider about your options or if you have any questions. It is your choice to take PAXLOVID. What is COVID-19? COVID-19 is caused by a virus called a coronavirus. You can get COVID-19 through close contact with another person who has the virus. COVID-19 illnesses have ranged from very vvny-jl-hmwnxy, including illness resulting in . While information so far suggests that most COVID-19 illness is mild, serious illness can happen and may cause some of your other medical conditions to become worse. Older people and people of all ages with severe, long lasting (chronic) medical conditions like heart disease, lung disease, and diabetes, for example seem to be at higher risk of being hospitalized for COVID-19. What is PAXLOVID? PAXLOVID is an investigational medicine used to treat agra-po-uwlzruls COVID-19 in adults and children [12 years of age and older weighing at least 88 pounds (40 kg)] with positive results of direct SARS-CoV-2 viral testing, and who are at high risk for progression to severe COVID-19, including hospitalization or . PAXLOVID is investigational because it is still being studied. There is limited information about the safety and effectiveness of using PAXLOVID to treat people with oazb-pf-qzmfyxeu COVID-19. The FDA has authorized the emergency use of PAXLOVID for the treatment of ymms-lf-lriqjhei COVID-19 in adults and children [12 years of age and older weighing at least 88 pounds (40 kg)] with a positive test for the virus that causes COVID-19, and who are at high risk for progression to severe COVID-19, including hospitalization or , under an EUA. 1 Revised: 26 June 2021 What should I tell my healthcare provider before I take PAXLOVID? Tell your healthcare provider if you: Have any allergies Have liver or kidney disease Are or plan to become Are a child Have any serious illnesses Tell your healthcare provider about all the medicines you take, including prescription and uvpq-mud-ztivtzb medicines, vitamins, and herbal supplements. Some medicines may interact with PAXLOVID and may cause serious side effects. Keep a list of your medicines to show your healthcare provider and pharmacist when you get a new medicine. You can ask your healthcare provider or pharmacist for a list of medicines that interact with PAXLOVID. Do not start taking a new medicine without telling your healthcare provider. Your healthcare provider can tell you if it is safe to take PAXLOVID with other medicines. Tell your healthcare provider if you are taking combined hormonal contraceptive. PAXLOVID may affect how your control pills work. Females who are able to become should use another effective alternative form of contraception or an additional barrier method of contraception. Talk to your healthcare provider if you have any questions about contraceptive methods that might be right for you. How do I take PAXLOVID? PAXLOVID consists of 2 medicines: nirmatrelvir and ritonavir. Take 2 pink tablets of nirmatrelvir with 1 white tablet of ritonavir by mouth 2 times each day (in the morning and in the evening) for 5 days. For each dose, take all 3 tablets at the same time. If you have kidney disease, talk to your healthcare provider. You may need a different dose. Swallow the tablets whole. Do not chew, break, or crush the tablets. Take PAXLOVID with or without food. Do not stop taking PAXLOVID without talking to your healthcare provider, even if you feel better. If you miss a dose of PAXLOVID within 8 hours of the time it is usually taken, take it as soon as you remember. If you miss a dose by more than 8 hours, skip the missed dose and take the next dose at your regular time. Do not take 2 doses of PAXLOVID at the same time. If you take too much PAXLOVID, call your healthcare provider or go to the nearest hospital emergency room right away. If you are taking a ritonavir-or cobicistat-containing medicine to treat hepatitis C or Human Immunodeficiency Virus (HIV), you should continue to take your medicine as prescribed by your healthcare provider. Talk to your healthcare provider if you do not feel better or if you feel worse after 5 days. Who should generally not take PAXLOVID? Do not take PAXLOVID if: You are allergic to nirmatrelvir, ritonavir, or any of the ingredients in PAXLOVID You are taking any of the following medicines: Alfuzosin Pethidine, propoxyphene Ranolazine Amiodarone, dronedarone, flecainide, propafenone, quinidine Colchicine Lurasidone, pimozide, clozapine Dihydroergotamine, ergotamine, methylergonovine Lovastatin, simvastatin Sildenafil (Revatio ) for pulmonary arterial hypertension (PAH) Triazolam, oral midazolam Apalutamide Carbamazepine, phenobarbital, phenytoin Rifampin [place] s Wort (hypericum perforatum) Taking PAXLOVID with these medicines may cause serious or life-threatening side effects or affect how PAXLOVID works. These are not the only medicines that may cause serious side effects if taken with PAXLOVID. PAXLOVID may increase or decrease the levels of multiple other medicines. It is very important to tell your healthcare provider about all of the medicines you are taking because additional laboratory tests or changes in the dose of your other medicines may be necessary while you are taking PAXLOVID. Your healthcare provider may also tell you about specific symptoms to watch out for that may indicate that you need to stop or decrease the dose of some of your other medicines. What are the important possible side effects of PAXLOVID? Possible side effects of PAXLOVID are: Allergic Reactions. Allergic reactions can happen in people taking PAXLOVID, even after only 1 dose. Stop taking PAXLOVID and call your healthcare provider right away if you get any of the following symptoms of an allergic reaction: hives trouble swallowing or breathing swelling of the mouth, lips, or face throat tightness hoarseness skin rash Liver Problems. Tell your healthcare provider right away if you have any of these signs and symptoms of liver problems: loss of appetite, yellowing of your skin and the whites of eyes (jaundice), dark-colored urine, pale colored stools and itchy skin, stomach area (abdominal) pain. Resistance to HIV Medicines. If you have untreated HIV infection, PAXLOVID may lead to some HIV medicines not working as well in the future. Other possible side effects include: altered sense of taste diarrhea high blood pressure muscle aches These are not all the possible side effects of PAXLOVID. Not many people have taken PAXLOVID. Serious and unexpected side effects may happen. PAXLOVID is still being studied, so it is possible that all of the risks are not known at this time. What other treatment choices are there? Veklury (remdesivir) is FDA-approved for the treatment of tmkp-gc-nuoscpcb COVID-19 in certain adults and children. Talk with your doctor to see if Veklury is appropriate for you. Like PAXLOVID, FDA may also allow for the emergency use of other medicines to treat people with COVID-19. Go to https://www.fda.gov/emergency-prep aredness-andresponse/lpk-dujhk-twn silmqee-tml-mhkkfe-framework/emerg xsgp-dhv-tqixgoyecgjav for information on the emergency use of other medicines that are authorized by FDA to treat people with COVID-19. Your healthcare provider may talk with you about clinical trials for which you may be eligible. It is your choice to be treated or not to be treated with PAXLOVID. Should you decide not to receive it or for your child not to receive it, it will not change your standard medical care. What if I am or ? There is sprue knocker treating women or mothers with PAXLOVID. For a mother and unborn baby, the benefit of taking PAXLOVID may be greater than the risk from the treatment. If you are , discuss your options and specific situation with your healthcare provider. It is recommended that you use effective barrier contraception or do not have sexual activity while taking PAXLOVID. If you are , discuss your options and specific situation with your healthcare provider. How do I report side effects with PAXLOVID? Contact your healthcare provider if you have any side effects that bother you or do not go away. Report side effects to FDA MedWatch at www.fda.gov/medwatch or call 6-779-HCI2862 or you can report side effects to [facility]. at the contact information provided below. Website Fax number Telephone number [email or web address] How should I store PAXLOVID? Store PAXLOVID tablets at room temperature, between 68?F to 77?F (20?C to 25?C). How can I learn more about COVID-19? Ask your healthcare provider. Visit https://www.cdc.gov/COVID19. Contact your local or state public health department. What is an Emergency Use Authorization (EUA)? The [place] FDA has made PAXLOVID available under an emergency access mechanism called an Emergency Use Authorization (EUA). The EUA is supported by a [place] of Health and Human Service (HHS) declaration that circumstances exist to justify the emergency use of drugs and biological products during the COVID-19 pandemic. PAXLOVID for the treatment of yzok-up-chddoavr COVID-19 in adults and children [12 years of age and older weighing at least 88 pounds (40 kg)] with positive results of direct SARS-CoV-2 viral testing, and who are at high risk for progression to severe COVID-19, including hospitalization or , has not undergone the same type of review as an FDA-approved product. In issuing an EUA under the COVID-19 public health emergency, the FDA has determined, among other things, that based on the total amount of scientific evidence available including data from adequate and well-controlled clinical trials, if available, it is reasonable to believe that the product may be effective for diagnosing, treating, or preventing COVID-19, or a serious or life-threatening disease or condition caused by COVID-19; that the known and potential benefits of the product, when used to diagnose, treat, or prevent such disease or condition, outweigh the known and potential risks of such product; and that there are no adequate, approved, and available alternatives. All of these criteria must be met to allow for the product to be used in the treatment of patients during the COVID-19 pandemic. The EUA for PAXLOVID is in effect for the duration of the COVID-19 declaration justifying emergency use of this product, unless terminated or revoked (after which the products may no longer be used under the EUA). Additional Information For general questions, visit the website or call the telephone number provided below. Website Telephone number [email or web address] ([phone]) You can also go to www.Kids Note or call for more information. Pf[employer] Distributed by [employer] [place] [address] [id number] Revised: 26 June 2021 documented in this encounter [facility] 03-11-2022 History of Present illness Narrative This Team Access Model visit is a virtual encounter. It required patient-provider interaction for the medical decision making as documented below. Patient agrees to the visit: Yes Patient Location: [place] CC: Patient presents with: Covid HPI Aston Napoles is a 47 year old male who is contacted today for a virtual visit. This is an established patient of Dr. Francisco Javier Camara MD. Symptoms started today. Had a home COVID test which was positive and spouse was also positive today too. Has a sore throat, left ear pain, sinus congestion, body aches, headache, shortness of breath, chills, sweating, some dizziness, and fatigue. Has a nonproductive cough and had a coughing fit that made it difficult for him to catch his breath. Had Covid a few years ago with similar shortness of breath and cough which he was prescribed an albuterol inhaler which helped. Would like a refill on this since the other inhaler is . Denies wheezing, fever, nausea, vomiting, or diarrhea. REVIEW OF SYSTEMS General: no recurrent infections and See HPI HEENT: no changes in hearing, no visual changes, no nose bleeds Respiratory: See HPI Cardiovascular: no chest pain, no chest pressure, no palpitations, and no swelling GI: No nausea, vomiting, or diarrhea Neurologic: No weakness, numbness, tingling, syncope. 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 Rinse mouth after use. DULoxetine (CYMBALTA) 30 mg capsule Take 1 capsule by mouth once daily. clotrimazole-betamethasone (LOTRISONE) cream Apply to affected area twice daily as needed. albuterol HFA (VENTOLIN HFA) 90 mcg/actuation inhaler Inhale 2 Puffs as instructed every 4 hours as needed for Wheezing/Shortness of Breath. COMPOUNDED PRESCRIPTION Increase CPAP setting to 13 cm H2O pressure. Dx: KEYLA CPAP Initiate CPAP @ 11 cm of water with humidification. Mask (per patient preference) optional chin strap (if indicated) , filters, tubing, humidifier and lifetime supplies. CETIRIZINE HCL (ZYRTEC ORAL) Take by mouth. FAMILY HISTORY Problem Relation Age of Onset Hypertension Mother Heart Attack Father 60 sudden Hypertension Father No Known Problems Sister No Known Problems Brother Colon Cancer Maternal Grandfather 72 Heart disease Paternal Grandmother Heart disease Paternal Grandfather Social History Tobacco Use Smoking status: Never Smokeless tobacco: Never Vaping Use Vaping Use: Never used Substance Use Topics Alcohol use: Yes Comment: once a month Drug use: No EXAM: Virtual visit completed using video, limited exam completed. GENERAL: alert and appropriate, in no distress, well-hydrated, well nourished, appears tired, and coughs occasionally RESPIRATORY: breathing non-labored CHEST: equal chest rise with normal respiratory effort DATA REVIEWED: No new labs HEPATITIS B(1 of 3 - 3-dose series) Never done HEPATITIS A(1 of 2 - Risk 2-dose series) Never done DIABETES SCREEN due on 11/27/2022 COLORECTAL CANCER SCREENING due on 01/26/2024 LIPID SCREEN due on 01/16/2025 DTAP,TDAP,TD(2 - Td or Tdap) due on 04/02/2028 INFLUENZA Completed HEPATITIS C SCREENING Completed HIV SCREENING Completed COVID-19 VACCINE Completed ASSESSMENT/PLAN: 1. COVID - ICD9: 079.89, ICD10: U07.1 - paxlovid indicated for obesity and no contraindications noted. - albuterol inhaler refilled and tessalon as ordered for cough - quarantine for 5 days but need to be fever free for 24 hours without fever reducing medications and have improving symptoms prior to quarantine being lifted. - plenty of rest and increase fluid intake - follow up in 3-5 days if no improvement - Go to Er for increased shortness of breath, chest pain, lethargy , or other urgent concern Prescription instructions reviewed with patient as applicable. Potential red flag symptoms discussed with the patient. Reviewed appropriate action plan to take if red flag symptoms occur. Patient agreeable to treatment plan. During this patient visit I have spent approximately 15 minutes in counseling regarding treatment options, medications, and coordinating care. Pamela Nieto APRN.COOK [employer]IEF Nirmatrelvir/Ritonavir (Paxlovid) Eligibility and Patient Discussion [facility] Formulary Restriction Criteria: Adult outpatients 18 years and older with ALL of the following: [x] Patient has positive SARS-COV-2 viral test (PCR or antigen test) during current illness [x] Patient has symptoms for 5 days or less [x] Not requiring hospitalization at any time for management of COVID-19 [x] Not requiring supplemental oxygen or a change in baseline supplemental oxygen [x] Not utilized for pre-exposure or post-exposure prophylaxis for prevention of COVID-19 [x] Patient does not have severe renal impairment (eGFR < 30 mL/min) or severe hepatic impairment (Child-Rankin Class C) [x] Meeting at least one of the criteria for high risk of progression to severe COVID-19: [] Age over 65 years [] Cancer [] Chronic kidney disease [] Chronic liver disease [] Chronic lung diseases, including cystic fibrosis [] Dementia or other neurological conditions [] Diabetes (type 1 or type 2) [] Disabilities, including Down syndrome and neurodevelopmental disorders [] Heart conditions [] HIV infection [] Immunocompromised state [] Mental health conditions [] Medical related technological dependence (tracheostomy, gastrostomy, or positive pressure ventilation (not related to COVID) [x] Overweight and obesity (BMI greater or equal to 25 for adults) [] Physical inactivity [] [] Sickle cell disease or thalassemia [] Smoking, current or former [] Solid organ or blood stem cell transplant [] Stroke or cerebrovascular disease [] Substance use disorders [] Tuberculosis [] People from racial and ethnic minority groups Criteria above are met: Yes Date of Positive Test:03/11/22 Date of Symptom Onset: 03/11/22 Patient received COVID vaccine: Yes Drug-Drug interactions reviewed: Yes. No drug interactions were identified. I have discussed the use of the investigational therapeutic, nirmatrelvir/ritonavir, for the treatment of mild to moderate COVID-19 and its use under Emergency Use Authorization with the patient. The patient was informed that nirmatrelvir/ritonavir is not an FDA approved drug and that it is authorized for use under this Emergency Use Authorization. The patient was also informed of the significant known benefits and potential risks of nirmatrelvir/ritonavir, and the extent to which such potential risks and benefits are unknown. The patient was informed that there is mandatory reporting of all medication errors and serious adverse events potentially related to nirmatrelvir/ritonavir treatment within 7 calendar days from the onset of the event and that events up to 28 days after completion of therapy need to be reported. The discussion included alternatives to receiving nirmatrelvir/ritonavir, including clinical trials, and potential the risks and benefits of those alternatives. The patient was provided electronically with the Fact Sheet for Patients, Parents and Caregivers . The patient was also instructed that in addition to the treatment with nirmatrelvir/ritonavir, he/she should continue to self-isolate and use infection control measures (e.g., wear mask, isolate, social distance, avoid sharing personal items, clean and disinfect high touch surfaces, and frequent handwashing) according to CDC guidelines. The patient stated understanding and gave verbal consent to proceeding with nirmatrelvir/ritonavir treatment. Pamela Nieto APRN.CNP March 11, 2022 2:48 PM documented in this encounter [facility] 01-11-2022 History of Present illness Narrative CC: Patient presents with: Follow Up HPI Aston Napoles is a 46 year old male who presents today for above. He is doing really well on Cymbalta. Anxiety is controlled and quality of life has improved. He also switched jobs which has also helped tremendously. No medication side effects. He is wearing CPAP consistently. Denies any issues. 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 clotrimazole-betamethasone (LOTRISONE) cream Apply to affected area twice daily as needed. fluticasone (FLONASE) 50 mcg/actuation nasal spray Use 2 Sprays in each nostril once daily. Rinse mouth after use. albuterol HFA (VENTOLIN HFA) 90 mcg/actuation inhaler Inhale 2 Puffs as instructed every 4 hours as needed for Wheezing/Shortness of Breath. COMPOUNDED PRESCRIPTION Increase CPAP setting to 13 cm H2O pressure. Dx: KEYLA CPAP Initiate CPAP @ 11 cm of water with humidification. Mask (per patient preference) optional chin strap (if indicated) , filters, tubing, humidifier and lifetime supplies. CETIRIZINE HCL (ZYRTEC ORAL) Take by mouth. FAMILY HISTORY Problem Relation Age of Onset Hypertension Mother Heart Attack Father 60 sudden Hypertension Father No Known Problems Sister No Known Problems Brother Colon Cancer Maternal Grandfather 72 Heart disease Paternal Grandmother Heart disease Paternal Grandfather Social History Tobacco Use Smoking status: Never Smokeless tobacco: Never Vaping Use Vaping Use: Never used Substance Use Topics Alcohol use: Yes Comment: once a month Drug use: No PHYSICAL EXAM BP 112/80 Pulse 80 Resp 18 Wt 98 kg (216 lb) BMI 30.99 kg/m Appearance: very pleasant, well dressed, well groomed Behavior: good eye contact and relaxed Speech: fluent and coherent Mood: euthymic Affect: appropriate Insight: good Judgment: good Health maintenance reviewed with patient: HEPATITIS B(1 of 3 - 3-dose series) Never done HEPATITIS A(1 of 2 - Risk 2-dose series) Never done COVID-19 VACCINE(4 - Booster for Moderna series) due on 05/07/2021 INFLUENZA(1) due on 12/10/2021 DIABETES SCREEN due on 11/27/2022 COLORECTAL CANCER SCREENING due on 01/26/2024 LIPID SCREEN due on 01/16/2025 DTAP,TDAP,TD(2 - Td or Tdap) due on 04/02/2028 HEPATITIS C SCREENING Completed HIV SCREENING Completed DATA REVIEWED: Most recent labs ASSESSMENT/PLAN: 1. Anxiety and depression - ICD9: 300.00, 311, ICD10: F41.9, F32.A (primary diagnosis) Doing really well on Cymbalta, continue with same dose - Reviewed benefits of sleep hygeine, diet and exercise - Follow-up in 6 months or sooner as needed - Instructed patient to contact office or [id number] after-hours promptly should condition worsen or any new symptoms appear. 2. Obesity, Class I, BMI 30-34.9 - ICD9: 278.00, ICD10: E66.9 Stable - LIPID PANEL BASIC - COMP METABOLIC PANEL 3. KEYLA (obstructive sleep apnea) - ICD9: 327.23, ICD10: G47.33 Compliant with CPAP 4. Encounter for immunization - ICD9: V03.89, ICD10: Z23 - INFLUENZA VACCINE QUADRIVALENT 6 MO - 64 YRS IM - [employer] COVID-19 BIVALENT BOOSTER VACCINE, AGE 12+ YR Prescription instructions reviewed with patient as applicable. Potential red flag symptoms discussed with the patient. Reviewed appropriate action plan to take if red flag symptoms occur. Patient agreeable to treatment plan. Catarina Nieto APRN.CARINA documented in this encounter [facility] 11-06-2021 Miscellaneous Notes Pt has seen Dr. Blair today. Left message for Patient to call & speak to nurse re: Recurrent problem needing general surgery consult. Rebecca Francisco LPN ummary: Consult to general surgery PT called in this morning requesting an appointment with general surgery as to a problem he had a few years back has returned and is worsening, he is concerned that he would not be able to be covered unless a referral was to be put in, was curious if we could put in another referral for general surgery, or if he needed one since it has been a recurrent problem. Please advise documented in this encounter [facility] 11-06-2021 History of Present illness Narrative HISTORY AND PHYSICAL Aston Napoles 1975 REFERRING PHYSICIAN: MD Yony CHIEF COMPLAINT: Consult (cyst, artie rectal, reoccuring ) HPI: The patient is a 46 year old male with a complaint of pain and discomfort in the perianal area. Patient has had a perianal abscess in the past and was actually drained in the emergency department 2008 came and 2018 and spontaneously drained at that time. No further surgery was done. Over the last week he has noticed some increasing tenderness in the area and feels like it is probably recurring. He has had no discharge. He is able to sit without problems.`. 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 clotrimazole-betamethasone (LOTRISONE) cream Apply to affected area twice daily as needed. fluticasone (FLONASE) 50 mcg/actuation nasal spray Use 2 Sprays in each nostril once daily. Rinse mouth after use. albuterol HFA (VENTOLIN HFA) 90 mcg/actuation inhaler Inhale 2 Puffs as instructed every 4 hours as needed for Wheezing/Shortness of Breath. COMPOUNDED PRESCRIPTION Increase CPAP setting to 13 cm H2O pressure. Dx: KEYLA CPAP Initiate CPAP @ 11 cm of water with humidification. Mask (per patient preference) optional chin strap (if indicated) , filters, tubing, humidifier and lifetime supplies. CETIRIZINE HCL (ZYRTEC ORAL) Take by mouth. amoxicillin-clavulanic acid (AUGMENTIN) 875-125 mg per tablet Take 1 tablet by mouth twice daily for 10 days. FOR 10 DAYS. No current facility-administered medications for this visit. ALLERGIES: Compazine [Prochlorperazine Edisylate] PERSONAL HISTORY: Social History Tobacco Use Smoking status: Never Smoker Smokeless tobacco: Never Used Vaping Use Vaping Use: Never used Substance Use Topics Alcohol use: Yes Comment: once a month Drug use: No FAMILY HISTORY: FAMILY HISTORY Problem Relation Age of Onset Hypertension Mother Heart Attack Father 60 sudden Hypertension Father No Known Problems Sister No Known Problems Brother Colon Cancer Maternal Grandfather 72 Heart disease Paternal Grandmother Heart disease Paternal Grandfather REVIEW OF SYMPTOMS: The review of systems data was entered by the nurse and reviewed by wi Nursing Notes: Rika Morales LPN 11/06/2021 8:46 AM Signed REVIEW OF SYSTEMS: General: The patient denies fatigue, denies weight loss, notes weight gain, denies feeling hot, and denies feelings of cold. Eyes: The patient denies glaucoma, denies eye injury/surgery, does not wear glasses or contacts. Ear/Nose/Throat: The patient denies allergies, denies hayfever, denies ear infections, and denies bloody noses. Cardiovascular: The patient denies chest pain, denies heart disease, denies high blood pressure,denies cardiac stent, denies prior heart attack, denies irregular heart beat, denies high cholesterol, denies poor circulation, denies heart failure, other cardiac issues, denies claudication, denies cold feet, denies peripheral arterial stent. Respiratory: The patient denies tuberculosis, denies pneumonia, denies frequent cough, denies pulmonary embolism, denies shortness of breath, and denies coughing up blood. Gastrointestinal: The patient denies difficulty swallowing, denies acid reflux, denies ulcers, denies vomiting, denies jaundice/hepatitis, denies gallbladder problems, denies black or tarry stools, denies hemorrhoids, denies bleeding from rectum, denies diverticulitis, denies constipation, denies diarrhea, denies loss of stool control, and denies hernias. Kidney/Bladder: The patient denies kidney stones, denies urine infections, and denies bloody urine. Skin: The patient denies a history of skin cancer, denies bleeding/changing moles, and notes a history of skin rash. Neurologic: The patient denies a history of epilepsy/convulsions, denies headaches, denies head/spinal injuries, and denies stroke/TIA. Psychiatric: The patient denies psychiatric medications, denies depression, and denies voices, denies substance abuse. Endocrine: The patient denies thyroid disorders, denies diabetes, and denies hormonal problems. Hematologic: The patient denies a history of bruising, denies bleeding, and denies anemia, denies blood clots. Infections: The patient denies a history of measles and mumps, denies rheumatic fever, and denies sexually transmitted diseases. Musculoskeletal: The patient denies back pain/injury, denies back problems, denies sciatica, denies knee/foot trouble, denies arthritis, or denies gout. When was patient's last Mammogram screening? 2019 Last Colonoscopy: 2020 Rika Morales LPN PHYSICAL EXAMINATION: General: The patient is 46 year old male, well nourished, well hydrated in no acute distress. The patient is oriented to time, place, and person. VITALS: Blood pressure 132/88, pulse 97, temperature (!) 35.9 C (96.6 F), height 177.8 cm (5' 10 ), weight 98.4 kg (217 lb), SpO2 97 %. HEENT: Normal cephalic, ataumatic, pupils are equally round, sclera are anicteric, mucous membranes are moist, oropharynx is clear. Neck has no masses, asymmetry or lymphadenopathy. Thyroid is unremarkable. Abdominal exam: Soft, nontender, with no palpable masses. No hepatosplenomegaly. No palpable hernias. Rectal exam: exam deferred On the left anterior aspect of the perianal area there is an old scar there is no cellulitis it is slightly tender to touch but there is no fluctuance. This is all the appearance of a impending perianal abscess and given his history I am concerned that he may actually have a fistula in anal which has not actually erupted through the skin yet. Extremities: no clubbing, cyanosis or edema. No adenopathy. Other: LABORATORY VALUES: As Noted RADIOLOGIC STUDIES: As Noted Assessment IMPRESSION: Perianal abscess (primary encounter diagnosis) PLAN: I Alehsa start him on antibiotics. We will do this for 10 days. I want him to do warm soaks and Epson salts twice daily. If this were to get worse I want him to come back so that we can do an incision and drainage in the office. If this is going to come back and/or it does open up I think he probably needs to be evaluated with an exam under anesthesia and evaluation for fistula in anal. Diagnoses: (K61.0) Perianal abscess (primary encounter diagnosis) My findings have been communicated to Dr. Francisco Javier Camara MD via shared medical record. This note will be forwarded to Dr. Francisco Javier Camara MD. Return to Clinic: The patient is instructed to follow-up with me as needed. Jonathan Blair III, MD documented in this encounter [facility] 11-06-2021 Nurse Note REVIEW OF SYSTEMS: General: The patient denies fatigue, denies weight loss, notes weight gain, denies feeling hot, and denies feelings of cold. Eyes: The patient denies glaucoma, denies eye injury/surgery, does not wear glasses or contacts. Ear/Nose/Throat: The patient denies allergies, denies hayfever, denies ear infections, and denies bloody noses. Cardiovascular: The patient denies chest pain, denies heart disease, denies high blood pressure,denies cardiac stent, denies prior heart attack, denies irregular heart beat, denies high cholesterol, denies poor circulation, denies heart failure, other cardiac issues, denies claudication, denies cold feet, denies peripheral arterial stent. Respiratory: The patient denies tuberculosis, denies pneumonia, denies frequent cough, denies pulmonary embolism, denies shortness of breath, and denies coughing up blood. Gastrointestinal: The patient denies difficulty swallowing, denies acid reflux, denies ulcers, denies vomiting, denies jaundice/hepatitis, denies gallbladder problems, denies black or tarry stools, denies hemorrhoids, denies bleeding from rectum, denies diverticulitis, denies constipation, denies diarrhea, denies loss of stool control, and denies hernias. Kidney/Bladder: The patient denies kidney stones, denies urine infections, and denies bloody urine. Skin: The patient denies a history of skin cancer, denies bleeding/changing moles, and notes a history of skin rash. Neurologic: The patient denies a history of epilepsy/convulsions, denies headaches, denies head/spinal injuries, and denies stroke/TIA. Psychiatric: The patient denies psychiatric medications, denies depression, and denies voices, denies substance abuse. Endocrine: The patient denies thyroid disorders, denies diabetes, and denies hormonal problems. Hematologic: The patient denies a history of bruising, denies bleeding, and denies anemia, denies blood clots. Infections: The patient denies a history of measles and mumps, denies rheumatic fever, and denies sexually transmitted diseases. Musculoskeletal: The patient denies back pain/injury, denies back problems, denies sciatica, denies knee/foot trouble, denies arthritis, or denies gout. When was patient's last Mammogram screening? 2019 Last Colonoscopy: 2020 Rika Morales LPN documented in this encounter [facility] 10-26-2021 Miscellaneous Notes Protocol Recommended: See PCP within 24 hours if severe diarrhea continues for 24 hours. Patient requested appt with Dr. Camara today. He is concerned and would like evaluated. Appt made for 7:20pm today. Reason for Disposition [1] SEVERE diarrhea (e.g., 7 or more times / day more than normal) AND [2] present > 24 hours (1 day) Answer Assessment - Initial Assessment Questions Patient reports last evening he started with diarrhea and has been having watery stools every hour since then. He states he did eat seafood at a restaurant yesterday and ate popcorn at a movie yesterday and thinks it might be food poisoning but he is not sure. Denies fever or abdominal pain. Hyperactive bowel sounds. Belching. Denies weakness or dizziness. Not taking any OTC medications. 1. DIARRHEA SEVERITY severe (every hour for last 12 hours) 2. ONSET: last evening 3. BM CONSISTENCY: watery 4. VOMITING: no 5. ABDOMINAL PAIN: no pain 6. ABDOMINAL PAIN SEVERITY:no pain 7. ORAL INTAKE: trying to sip on water-keeping it down 8. HYDRATION: denies weakness or dizziness, urinating per usual 9. EXPOSURE: possible food poisoning 10. ANTIBIOTIC USE: possible a month ago 11. OTHER SYMPTOMS: No Fever or blood in stool Protocols used: [id number] documented in this encounter [facility] 09-24-2021 History of Present illness Narrative This note was created using [employer]. Subjective Aston Napoles is a 46 year old male. He was seen at the [facility] for possible Covid, tested negative. He was started on Augmentin and was advised Sudafed. He called 09/22 not feeling better. His fever broke yesterday and he was much better. Only symptoms of concern left was fullness of the left ear. Review of Systems Constitutional: Negative for fatigue and fever. HENT: Positive for postnasal drip. Negative for ear discharge, ear pain and sore throat. Respiratory: Negative for shortness of breath. 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 Current Outpatient Medications Medication Sig amoxicillin-clavulanic acid (AUGMENTIN) 875-125 mg per tablet Take 1 tablet by mouth twice daily. pseudoephedrine HCl (SUDAFED ORAL) Take 1 tablet by mouth twice daily. DULoxetine (CYMBALTA) 30 mg capsule Take 1 capsule by mouth once daily. clotrimazole-betamethasone (LOTRISONE) cream Apply to affected area twice daily as needed. fluticasone (FLONASE) 50 mcg/actuation nasal spray Use 2 Sprays in each nostril once daily. Rinse mouth after use. albuterol HFA (VENTOLIN HFA) 90 mcg/actuation inhaler Inhale 2 Puffs as instructed every 4 hours as needed for Wheezing/Shortness of Breath. COMPOUNDED PRESCRIPTION Increase CPAP setting to 13 cm H2O pressure. Dx: KEYLA CPAP Initiate CPAP @ 11 cm of water with humidification. Mask (per patient preference) optional chin strap (if indicated) , filters, tubing, humidifier and lifetime supplies. CETIRIZINE HCL (ZYRTEC ORAL) Take by mouth. No current facility-administered medications for this visit. Objective BP 126/74 (BP Site: Left Arm, BP Position: Sitting, BP Cuff Size: Large Adult) Pulse 84 Temp 36.1 C (97 F) (Temporal Artery) Resp 16 Wt 98 kg (216 lb) SpO2 96% BMI (P) 32.84 kg/m Physical Exam Constitutional: General: He is not in acute distress. HENT: Right Ear: Tympanic membrane normal. Left Ear: No middle ear effusion. There is impacted cerumen. Tympanic membrane is scarred. Tympanic membrane is not erythematous. Ears: Comments: Post lavage. Pulmonary: Effort: No respiratory distress. Breath sounds: No wheezing or rales. Musculoskeletal: Cervical back: No tenderness. Lymphadenopathy: Cervical: No cervical adenopathy. Assessment and Plan ASSESSMENT/PLAN: 1. Impacted cerumen of left ear - ICD9: 380.4, ICD10: H61.22 (primary diagnosis) - PERS HLTH MGMT EAR WAX REMOVA 2. Acute non-recurrent sinusitis of other sinus - ICD9: 461.8, ICD10: J01.80 Resolving. Francisco Javier Camara MD documented in this encounter [facility] 09-23-2021 Miscellaneous Notes Patient returned call and went over my chart message that was sent, appt scheduled with Dr Camara for 09/24 at 140 pm since [facility] schedule no appt is available. Patient had [facility] to [facility] and put on amox rx, coughing, had fever. Left message to call & speak to nurse. Rebecca Francisco LPN He was not evaluated here so for now continue with current treatment plan. Expect improvement another 1-2 days. Appointment or urgent care here if not better end of this week. ER if worse. Pt states he has been feeling sick since 09/14, thought he had a sinus infection, then Tuesday night started running a low grad fever. Pt reports he went to on Tuesday and they gave him Amoxicillin and told him to take Sudafed tested negative for Covid. States he has been taking Sudafed every 4 hours, and is on his 5th dose of the antibiotic and he does not feel any better and he is still running a low grade temp of 99.5. Pt reports symptoms of runny nose, productive cough with thick yellow sputum, headache, congestion, earache (used old ear drops and feels a little better), headache, and chills. Pt asking if provider would want to order another antibiotic for him, he uses [facility] in [place]. Please call and advise. documented in this encounter [facility] 07-04-2021 History of Present illness Narrative ASSESSMENT/PLAN: 1. Positive hepatitis C antibody test - ICD9: 795.79, ICD10: R76.8 Negative HCV RNA. Repeat in 6 weeks. - HEP REMOTE PANEL BL - HEPATIC FUNCTION PNL Francisco Javier Camara MD documented in this encounter [facility] documented as of this encounter (statuses as of 07/04/2021) [facility] History of Past illness Narrative* Problem Noted Date Resolved Date Somnolence, daytime 02/27/2018 09/28/2018 Elevated blood pressure reading 02/27/2018 09/28/2018 documented as of this encounter (statuses as of 09/23/2021) [address]19-2018 History of Past illness Narrative* Problem Noted Date Resolved Date Somnolence, daytime 02/27/2018 09/28/2018 Elevated blood pressure reading 02/27/2018 09/28/2018 documented as of this encounter (statuses as of 09/23/2021) [address]19-2018 History of Past illness Narrative* Problem Noted Date Resolved Date Somnolence, daytime 02/27/2018 09/28/2018 Elevated blood pressure reading 02/27/2018 09/28/2018 documented as of this encounter (statuses as of 09/24/2021) [address]19-2018 History of Past illness Narrative* Problem Noted Date Resolved Date Somnolence, daytime 02/27/2018 09/28/2018 Elevated blood pressure reading 02/27/2018 09/28/2018 documented as of this encounter (statuses as of 10/27/2021) [address]19-2018 History of Past illness Narrative* Problem Noted Date Resolved Date Somnolence, daytime 02/27/2018 09/28/2018 Elevated blood pressure reading 02/27/2018 09/28/2018 documented as of this encounter (statuses as of 11/06/2021) [address]19-2018 History of Past illness Narrative* Problem Noted Date Resolved Date Somnolence, daytime 02/27/2018 09/28/2018 Elevated blood pressure reading 02/27/2018 09/28/2018 documented as of this encounter (statuses as of 11/06/2021) [address]19-2018 History of Past illness Narrative* Problem Noted Date Resolved Date Somnolence, daytime 02/27/2018 09/28/2018 Elevated blood pressure reading 02/27/2018 09/28/2018 documented as of this encounter (statuses as of 01/11/2022) [address]19-2018 History of Past illness Narrative* Problem Noted Date Resolved Date Somnolence, daytime 02/27/2018 09/28/2018 Elevated blood pressure reading 02/27/2018 09/28/2018 documented as of this encounter (statuses as of 03/11/2022) [facility] History of Past illness Narrative* Problem Noted Date Resolved Date Somnolence, daytime 02/27/2018 09/28/2018 Elevated blood pressure reading 02/27/2018 09/28/2018 documented as of this encounter (statuses as of 04/17/2022) [address]19-2018 History of Past illness Narrative* Problem Noted Date Resolved Date Somnolence, daytime 02/27/2018 09/28/2018 Elevated blood pressure reading 02/27/2018 09/28/2018 documented as of this encounter (statuses as of 05/17/2022) [place] [address]-19-2018 History of Past illness Narrative* Problem Noted Date Resolved Date Somnolence, daytime 02/27/2018 09/28/2018 Elevated blood pressure reading 02/27/2018 09/28/2018 documented as of this encounter (statuses as of 05/26/2022) [facility] of Past illness Narrative* Problem Noted Date Resolved Date Somnolence, daytime 02/27/2018 09/28/2018 Elevated blood pressure reading 02/27/2018 09/28/2018 documented as of this encounter (statuses as of 07/22/2022) [place] [address]19-2018 History of Past illness Narrative* Problem Noted Date Diagnosed Date Resolved Date Somnolence, daytime 02/27/2018 09/29/19 19 Elevated blood pressure reading 02/27/2018 09/28/2018 documented as of this encounter (statuses as of 11/04/2022) [place] [address]19-2018 History of Past illness Narrative* Problem Noted Date Diagnosed Date Resolved Date Somnolence, daytime 02/27/2018 09/29/19 19 Elevated blood pressure reading 02/27/2018 09/28/2018 documented as of this encounter (statuses as of 12/16/2022) [address]19-2018 History of Past illness Narrative* Problem Noted Date Diagnosed Date Resolved Date Somnolence, daytime 02/27/2018 09/29/19 19 Elevated blood pressure reading 02/27/2018 09/28/2018 documented as of this encounter (statuses as of 12/24/2022) [facility] of Past [facility] Narrative* Problem Noted Date Diagnosed Date Resolved Date Somnolence, daytime 02/27/2018 09/29/19 19 Elevated blood pressure reading 02/27/2018 09/28/2018 documented as of this encounter (statuses as of 02/01/2023) [facility] of Past illness Narrative* Problem Noted Date Diagnosed Date Resolved Date Somnolence, daytime 02/27/2018 09/29/19 19 Elevated blood pressure reading 02/27/2018 09/28/2018 documented as of this encounter (statuses as of 02/07/2023) [address]19-2018 History of Past illness Narrative* Problem Noted Date Diagnosed Date Resolved Date Somnolence, daytime 02/27/2018 09/29/19 19 Elevated blood pressure reading 02/27/2018 09/28/2018 documented as of this encounter (statuses as of 02/17/2023) [facility] Narrative* Problem Noted Date Diagnosed Date Resolved Date Somnolence, daytime 02/27/2018 09/29/19 19 Elevated blood pressure reading 02/27/2018 09/28/2018 documented as of this encounter (statuses as of 02/18/2023) [facility] of [facility] Narrative* Problem Noted Date Diagnosed Date Resolved Date Somnolence, daytime 02/27/2018 09/29/19 19 Elevated blood pressure reading 02/27/2018 09/28/2018 documented as of this encounter (statuses as of 02/24/2023) [address]19-2018 History of Past illness Narrative* Problem Noted Date Diagnosed Date Resolved Date Somnolence, daytime 02/27/2018 09/29/19 19 Elevated blood pressure reading 02/27/2018 09/28/2018 documented as of this encounter (statuses as of 02/24/2023) [facility] Narrative* Problem Noted Date Diagnosed Date Resolved Date Somnolence, daytime 02/27/2018 09/29/19 19 Elevated blood pressure reading 02/27/2018 09/28/2018 documented as of this encounter (statuses as of 02/25/2023) [facility] Diagnosis Positive hepatitis C antibody test- Primary Other and unspecified nonspecific immunological findings [facility] Diagnosis Impacted cerumen of left ear- Primary Impacted cerumen Acute non-recurrent sinusitis of other sinus [facility] Diagnosis Perianal abscess- Primary Abscess of anal and rectal regions [facility] Diagnosis Anxiety and depression- Primary Dysthymic disorder Obesity, Class I, BMI 30-34.9 Obesity, unspecified KEYLA (obstructive sleep apnea) Obstructive sleep apnea (adult) (pediatric) Encounter for immunization Need for other specified prophylactic vaccination against single bacterial disease [facility] Diagnosis COVID- Primary [facility] Diagnosis Dermatitis Contact dermatitis and other eczema, due to unspecified cause [facility] Diagnosis Non-recurrent acute suppurative otitis media of both ears without spontaneous rupture of tympanic membranes- [facility] Diagnosis Anxiety and depression Dysthymic disorder [facility] Diagnosis Bug bite, initial encounter- Primary Skin infection Unspecified local infection of skin and subcutaneous tissue [facility] Diagnosis Otitis media, recurrent, left- Primary Erectile dysfunction, unspecified erectile dysfunction type Psoriasis Other psoriasis Pain in joint involving multiple sites Pain in joint, multiple sites Encounter for lipid screening for cardiovascular disease Screening for lipoid disorders Encounter for screening for diabetes mellitus Screening for diabetes mellitus Encounter for immunization Need for other specified prophylactic vaccination against single bacterial disease [facility] Diagnosis Abdominal pain, left lower quadrant- Primary Rectal bleeding Hemorrhage of rectum and anus Subareolar mass of left breast Need for COVID-19 vaccine [facility] Diagnosis Abdominal pain, left lower quadrant Rectal bleeding Hemorrhage of rectum and anus [facility] Diagnosis Hemorrhage of rectum and anus- Primary Abdominal pain, left lower quadrant Rectal bleeding Hemorrhage of rectum and anus [facility] Diagnosis Subareolar mass of left breast documented in this encounter [facility]* Diagnosis Subareolar mass of left breast documented in this encounter [facility] note* Diagnosis Anal warts- Primary Condyloma acuminatum documented in this encounter [facility] for referral (narrative)* Diagnostic Procedure Only (Routine) - Pending Review Specialty Diagnoses / Procedures Referred By Betzaidaac t Referred To Contact [facility] Diagnoses Subareolar mass of left breast Procedures US BREAST LTD LEFT US BREAST UNI REAL TIME WITH IMAGE LIMITED Francisco Javier Camara MD [address] [place] [address] [facility] [address] [place] [address] Referral ID Status Reason Start Date Expiration Date Visits Requested Visits Authorized [id number] Pending Review Auto-Generat ed Referral 3 03/01/2024 1 1 * Diagnostic Procedure Only (Routine) - Pending Review Specialty Diagnoses / Procedures Referred By Marian t Referred To Contact [facility] Diagnoses Subareolar mass of left breast Procedures [facility] LEFT DIAGNOSTIC MAMMOGRAPHY COMPUTER-AIDED DETCJ UNI Francisco Javier Camara MD [address] [place] [address] [facility] [address] [place] [id number] Referral ID Status Reason Start Date Expiration Date Visits Requested Visits Authorized [id number] Pending Review Auto-Generat ed Referral 3 03/01/2024 1 1 * Consult, Test, Treat (Routine) - Authorized Specialty Diagnoses / Procedures Referred By Marian t Referred To Contact General Surgery Diagnoses Abdominal pain, left lower quadrant Rectal bleeding Procedures CONSULT TO GENERAL SURGERY OFFICE/OUTPATIENT [facility] 60-74 MINUTES Francisco Javier Camara MD [address] [place] [address] Referral ID Status Reason Start Date Expiration Date Visits Requested Visits Authorized [id number] Authorized PCP Requested Referral 3 01/31/2024 1 1 [facility] for referral (narrative)* Outpatient Procedure (Routine) - Authorized Specialty Diagnoses / Procedures Referred By Contac t Referred To Contact [facility] Diagnoses Abdominal pain, left lower quadrant Rectal bleeding Procedures COLONOSCOPY DIAGNOSTIC COLONOSCOPY FLX DX W/COLLJ SPEC WHEN Jonathan Brooks MD [address] [place] [address] [facility] [address] [place] [address] Referral ID Status Reason Start Date Expiration Date Visits Requested Visits Authorized [id number] Authorized Auto-Generat ed Referral 3 02/02/2024 1 1 [facility] for referral (narrative)* Outpatient Procedure (Routine) - Closed Specialty Diagnoses / Procedures Referred By Contac t Referred To Contact [facility] Diagnoses Abdominal pain, left lower quadrant Rectal bleeding Procedures COLONOSCOPY DIAGNOSTIC COLONOSCOPY FLX DX W/COLLJ SPEC WHEN Jonathan Brooks MD [address] [facility] [place] [address] [facility] [address] [place] [id number] Referral ID Status Reason Start Date Expiration Date V isits Requested Visits Authorized [id number] Closed Auto-Generate d Referral 02/01/2023 02/02/2024 1 1 [facility] for referral (narrative)* Diagnostic Procedure Only (Routine) - Closed Specialty Diagnoses / Procedures Referred By Contac t Referred To Contact [facility] Diagnoses Subareolar mass of left breast Procedures US BREAST LTD LEFT US BREAST UNI REAL TIME WITH IMAGE LIMITED Francisco Javier Camara MD [address] [place] [address] [facility] [address] [place] [address] Referral ID Status Reason Start Date Expiration Date V isits Requested Visits Authorized [id number] Closed Auto-Generate d Referral 01/31/2023 03/01/2024 1 1 [facility] for visit Narrative* Outpatient Procedure (Routine) - Closed Specialty Diagnoses / Procedures Referred By Contac t Referred To Contact [facility] Diagnoses Abdominal pain, left lower quadrant Rectal bleeding Procedures COLONOSCOPY DIAGNOSTIC COLONOSCOPY FLX DX W/COLLJ SPEC WHEN [facility] Jonathan Blair MD [address] [place] [address] [facility] [address] [place] [address] Referral ID Status Reason Start Date Expiration Date V isits Requested Visits Authorized [id number] Closed Auto-Generate d Referral 02/01/2023 02/02/2024 1 1 [facility] for visit Narrative* Diagnostic Procedure Only (Routine) - Closed Specialty Diagnoses / Procedures Referred By Contac t Referred To Contact [facility] Diagnoses Subareolar mass of left breast Procedures [facility] LEFT DIAGNOSTIC MAMMOGRAPHY COMPUTER-AIDED DETCJ Francisco Javier Ruby MD [address] [place] [address] [facility] [address] [place] [address] Referral ID Status Reason Start Date Expiration Date V isits Requested Visits Authorized [id number] Closed Auto-Generate d Referral 01/31/2023 03/01/2024 1 1 [facility] Summary Purpose Family History No Family History Records FoundNo Family History Records FoundNo Family History Records FoundNo Family History Records FoundNo Family History Records Found Advance Directives No Advanced Directives Records FoundNo Advanced Directives Records FoundNo Advanced Directives Records FoundNo Advanced Directives Records FoundNo Advanced Directives Records Found Medications Administered Section Inactive Administered Medications - up to 3 most recent administrations Medication Order MAR Action Action Date Dose Rate Site diphenhydrAMINE 12.5-50 mg injection (BENADRYL) 12.5-50 mg, INTRAVENOUS, DIRECTED, Starting on Tue02/17/23 at 0900, Until Tue02/17/23 at 1259, DOSING DIRECTED BY PHYSICIAN FOR PROCEDURAL SEDATION ONLY, Intraprocedure Given 02/17/2023 8:37 AM EST 50 mg fentaNYL 50 mcg/mL 25-100 mcg injection (SUBLIMAZE) 25-100 mcg, INTRAVENOUS, DIRECTED, Starting on Cammie 02/17/23 at 0900, Until Cammie 02/17/23 at 1259, DOSING DIRECTED BY PHYSICIAN FOR PROCEDURAL SEDATION ONLY, Intraprocedure Given 02/17/2023 8:44 AM EST 50 mcg Additional Source Comments (unrecognized sect ion and content) No Status Records FoundNo Status Records FoundNo Status Records FoundNo Status Records FoundNo Status Records Found INFORMATION SOURCE (unrecogn ized section and content) DATE CREATED AUTHOR AUTHOR'S ORGANIZ ATION 10/04/2017 [facility] DATE CREATED AUTHOR AUTHOR'S ORGANIZ ATION 11/03/2017 [facility] DATE CREATED AUTHOR AUTHOR'S ORGANIZ ATION 04/13/2018 [facility] DATE CREATED AUTHOR AUTHOR'S ORGANIZ ATION 02/25/2023 [facility] Source Comments (unrecognize d section and content) In the event this informatio n is protected by the Federal Confidentiality of Alcohol and Drug Abuse Patient Records regulations: The Federal rules restrict any use of the information to criminally investigate or prosecute any alcohol or drug abuse patient.[facility] the event this information is protected by the Federal Confidentiality of Alcohol and Drug Abuse Patient Records regulations: The Federal rules restrict any use of the information to criminally investigate or prosecute any alcohol or drug abuse patient.[facility] the event this information is protected by the Federal Confidentiality of Alcohol and Drug Abuse Patient Records regulations: The Federal rules restrict any use of the information to criminally investigate or prosecute any alcohol or drug abuse patient.[facility] the event this information is protected by the Federal Confidentiality of Alcohol and Drug Abuse Patient Records regulations: The Federal rules restrict any use of the information to criminally investigate or prosecute any alcohol or drug abuse patient.[facility] the event this information is protected by the Federal Confidentiality of Alcohol and Drug Abuse Patient Records regulations: The Federal rules restrict any use of the information to criminally investigate or prosecute any alcohol or drug abuse patient.[facility] the event this information is protected by the Federal Confidentiality of Alcohol and Drug Abuse Patient Records regulations: The Federal rules restrict any use of the information to criminally investigate or prosecute any alcohol or drug abuse patient.[facility] the event this information is protected by the Federal Confidentiality of Alcohol and Drug Abuse Patient Records regulations: The Federal rules restrict any use of the information to criminally investigate or prosecute any alcohol or drug abuse patient.[facility] the event this information is protected by the Federal Confidentiality of Alcohol and Drug Abuse Patient Records regulations: The Federal rules restrict any use of the information to criminally investigate or prosecute any alcohol or drug abuse patient.[facility] the event this information is protected by the Federal Confidentiality of Alcohol and Drug Abuse Patient Records regulations: The Federal rules restrict any use of the information to criminally investigate or prosecute any alcohol or drug abuse patient.[facility] the event this information is protected by the Federal Confidentiality of Alcohol and Drug Abuse Patient Records regulations: The Federal rules restrict any use of the information to criminally investigate or prosecute any alcohol or drug abuse patient.[facility] the event this information is protected by the Federal Confidentiality of Alcohol and Drug Abuse Patient Records regulations: The Federal rules restrict any use of the information to criminally investigate or prosecute any alcohol or drug abuse patient.[facility] the event this information is protected by the Federal Confidentiality of Alcohol and Drug Abuse Patient Records regulations: The Federal rules restrict any use of the information to criminally investigate or prosecute any alcohol or drug abuse patient.[facility] the event this information is protected by the Federal Confidentiality of Alcohol and Drug Abuse Patient Records regulations: The Federal rules restrict any use of the information to criminally investigate or prosecute any alcohol or drug abuse patient.[facility] the event this information is protected by the Federal Confidentiality of Alcohol and Drug Abuse Patient Records regulations: The Federal rules restrict any use of the information to criminally investigate or prosecute any alcohol or drug abuse patient.[facility] the event this information is protected by the Federal Confidentiality of Alcohol and Drug Abuse Patient Records regulations: The Federal rules restrict any use of the information to criminally investigate or prosecute any alcohol or drug abuse patient.[facility] Hospital[facility] the event this information is protected by the Federal Confidentiality of Alcohol and Drug Abuse Patient Records regulations: The Federal rules restrict any use of the information to criminally investigate or prosecute any alcohol or drug abuse patient.[facility] the event this information is protected by the Federal Confidentiality of Alcohol and Drug Abuse Patient Records regulations: The Federal rules restrict any use of the information to criminally investigate or prosecute any alcohol or drug abuse patient.[facility] the event this information is protected by the Federal Confidentiality of Alcohol and Drug Abuse Patient Records regulations: The Federal rules restrict any use of the information to criminally investigate or prosecute any alcohol or drug abuse patient.[facility] the event this information is protected by the Federal Confidentiality of Alcohol and Drug Abuse Patient Records regulations: The Federal rules restrict any use of the information to criminally investigate or prosecute any alcohol or drug abuse patient.[facility] the event this information is protected by the Federal Confidentiality of Alcohol and Drug Abuse Patient Records regulations: The Federal rules restrict any use of the information to criminally investigate or prosecute any alcohol or drug abuse patient.[facility] the event this information is protected by the Federal Confidentiality of Alcohol and Drug Abuse Patient Records regulations: The Federal rules restrict any use of the information to criminally investigate or prosecute any alcohol or drug abuse patient.[facility] the event this information is protected by the Federal Confidentiality of Alcohol and Drug Abuse Patient Records regulations: The Federal rules restrict any use of the information to criminally investigate or prosecute any alcohol or drug abuse patient.[facility]In the event this information is protected by the Federal Confidentiality of Alcohol and Drug Abuse Patient Records regulations: The Federal rules restrict any use of the information to criminally investigate or prosecute any alcohol or drug abuse patient.[facility] HospitalIn the event this information is protected by the Federal Confidentiality of Alcohol and Drug Abuse Patient Records regulations: The Federal rules restrict any use of the information to criminally investigate or prosecute any alcohol or drug abuse patient.[facility] Care Teams (unrecognized sec tion and content) Edge Sawyer Relationship Specialty Start Date End Date Franicsco Javier Camara MD [address] [place], [place] [id number] PCP - General Internal Medicine 03/01/18 Edge Sawyer Relationship Specialty Start Date End Date Francisco Javier Camara MD [address] [place], [place] [id number] PCP - General Internal Medicine 03/01/18 Edge Sawyer Relationship Specialty Start Date End Date Francisco Javier Camara MD [address] [facility] [address] PCP - General Internal Medicine 03/01/18 Edge Sawyer Relationship Specialty Start Date End Date Francisco Javier Camara MD [address] [facility] [address] PCP - General Internal Medicine 03/01/18 Edge Sawyer Relationship Specialty Start Date End Date Francisco Javier Camara MD [address] [facility] [address] PCP - General Internal Medicine 03/01/18 Edge Sawyer Relationship Specialty Start Date End Date Francisco Javier Camara MD [address] [facility] [address] PCP - General Internal Medicine 03/01/18 Edge Sawyer Relationship Specialty Start Date End Date Francisco Javier Camara MD [address] [facility] [address] PCP - General Internal Medicine 03/01/18 Edge Sawyer Relationship Specialty Start Date End Date Francisco Javier Camara MD [address] [facility] [address] PCP - General Internal Medicine 03/01/18 Edge Sawyer Relationship Specialty Start Date End Date Jake Conrad MD [address] [place] [id number] PCP - General Family Medicine 02/14/13 Edge Sawyer Relationship Specialty Start Date End Date Francisco Javier Camara MD [address] [place] [address] PCP - General Internal Medicine 03/01/18 Edge Sawyer Relationship Specialty Start [place] [address] [place] [address] [place] [address] PCP - General Internal Medicine 03/01/18 Edge Sawyer Relationship Specialty Start Date End Date Francisco Javier Camara MD [address] [place] [address] PCP - General Internal Medicine 03/01/18 Edge Sawyer Relationship Specialty Start Date End Date Francisco Javier Camara MD [address] [facility] [address] PCP - General Internal Medicine 03/01/18 Edge Sawyer Relationship Specialty Start Date End Date Francisco Javier Camara MD [address] [facility] [address] PCP - General Internal Medicine 03/01/18 Edge Sawyer Relationship Specialty Start Date End Date Francisco Javier Camara MD [address] [facility] [address] PCP - General Internal Medicine 03/01/18 Edge Sawyer Relationship Specialty Start Date End Date Francisco Javier Camara MD [address] [facility] [place] [address] PCP - General Internal Medicine 03/01/18 Edge Sawyer Relationship Specialty Start Date End Date Francisco Javier Camara MD [address] [facility] [place] [address] PCP - General Internal Medicine 03/01/18 Edge Sawyer Relationship Specialty Start Date End Date Francisco Javier Camara MD [address] [facility] [place] [address] PCP - General Internal Medicine 03/01/18 Reason for Visit (unrecogniz ed section and content) Reason Comments Cough Reason Comments Diarrhea Reason Comments Consult cyst, artie rectal, r eoccuring Reason Comments Appointment Reason Comments Follow Up Reason Comments Covid Reason Comments Refill Request Reason Comments c/o sinus infection , clogged ears and e ar pain Reason Comments Patient Question Reason Onset Date Comments Refill Request 07/21/2022 Reason Comments Insect Bite Reason Comments Ear Infection Left ear infection o n / at [facility] was given Amoxicillin - now feels that it is possibly in both - dx with COVID same day. Reason Comments ER F/U Reason Comments Consult LLQ abdominal pain/ Rectal bleeding Specialty Diagnoses / Procedures Referred By Contac t Referred To Contact General Surgery Diagnoses Abdominal pain, left lower quadrant Rectal bleeding Procedures CONSULT TO GENERAL SURGERY OFFICE/OUTPATIENT [facility] 60-74 MINUTES Francisco Javier Camara MD [address] [place] [id number] Referral ID Status Reason Start Date Expiration Date V isits Requested Visits Authorized [id number] Closed PCP Requested Referral 01/31/2023 01/31/2024 1 1 Reason Comments Information Reason Comments Radiology US Specialty Diagnoses / Procedures Referred By Contac t Referred To Contact BR IMAGING Diagnoses Subareolar mass of left breast Procedures US BREAST LTD LEFT US BREAST UNI REAL TIME WITH IMAGE LIMITED Francisco Javier Camara MD [address] [place] [id number] [facility] [address] [place] [address] Referral ID Status Reason Start Date Expiration Date V isits Requested Visits Authorized [id number] Closed Auto-Generate d Referral 01/31/2023 03/01/2024 1 1 Reason Comments Follow Up Review colonoscopy p athology. FOR RECORDS PERTAINING TO PATIENTS WHO ARE OR HAVE BEEN ENROLLED IN A CHEMICAL DEPENDENCY/SUBSTANCEABUSE PROGRAM, SOME INFORMATION MAY BE OMITTED. This clinical summary was aggregated from multiple sources. Caution should be exercised in using it in the provision of clinical care. This summary normalizes information from multiple sources, and as a consequence, information in this document may materially change the coding, format and clinical context of patient data. In addition, data may be omitted in some cases. CLINICAL DECISIONS SHOULD BE BASED ON THE PRIMARY CLINICAL RECORDS. [facility], [facility]. provides no warranty or guarantee of the accuracy or completeness of information in this document.
[2023-04-19 17:07] LABS: Hepatitis B Core Ab Total Negative (Negative); QNTFERON TB Mitogen Value > 10.00 IU/mL (.); QNTFERON TB Nil Value 0.11 IU/mL (.); QNTFERON TB1+ Ag Value 0.04 IU/mL (.); QNTFERON TB2+ Ag Value 0 IU/mL (.); QNTIFERON TB Positive Criteria Negative (Negative)
== END | disposition home or self-care (01) ==
LOC: MTLAB 16:36
PROVIDERS: PCP Internal Medicine; Referring Provider Physician Assistant Medical; Visit Provider Physician Assistant Medical
DX: L40.0 Psoriasis vulgaris (principal); Z79.899 Other long term (current) drug therapy
CPT/HCPCS: 36415; 86480; 86704

== ENCOUNTER 2024-02-07 04:26 | Emergency (ER) | payer OTHER, SELFPAY ==
[2024-02-07 04:27] VITALS: BP 157/96; PULSE 105; RESP 16; TEMP 36.9; O2SAT 94; BMI 31.2
--- NOTE | 2024-02-07 04:30 | EX.ED.GENINJ ---
HPI History of Present Illness Chief Complaint: [facility] Medical History Generalized anxiety disorder Hernia Major depressive disorder, recurrent, moderate KEYLA on CPAP Home Medications ?Medication ?Instructions ?Recorded ?Last Taken ?Type cetirizine 10 mg capsule (Zyrtec) 10 mg PO DAILY 04/02/18 09/19/18 History fluticasone propionate 50 2 sprays IH DAILY 09/20/18 09/19/18 History mcg/actuation nasal spray,suspension alprazolam 0.25 mg tablet (Xanax) 0.25 mg PO DAILY PRN PRN Anxiety 10/29/20 Unknown History duloxetine 30 mg capsule,delayed 30 mg PO DAILY 10/29/20 Unknown History release (Cymbalta) dicyclomine 20 mg tablet 20 mg PO BID PRN abdominal pain 01/29/23 Unknown Rx #20 tabs ondansetron 4 mg disintegrating 4 mg PO Q6H PRN nausea and 01/29/23 Unknown Rx tablet vomiting #20 tabs hydrocodone-acetaminophen 5-325mg 1 tab PO 02/07/24 Unknown History 5mg-325mg ondansetron 4 mg disintegrating 4 mg PO Q8H PRN PRN Nausea #10 tabs 02/07/24 Unknown Rx tablet ondansetron HCl 4 mg tablet 4 mg PO Q8H PRN PRN nausea/vomiting 02/07/24 Unknown History Allergy/AdvReac Type Severity Reaction Status Date / Time prochlorperazine (From AdvReac Other Verified 02/07/24 04:27 Compazine) Surgical History History of appendectomy History of hernia repair History of tonsillectomy Social History Smoking Status: Never smoker EXAM Physical Exam Const Vital Signs: 02/07/24 04:27 02/07/24 06:26 Temperature 98.5 F Temperature Source Oral Pulse Rate 105 H 53 L Respiratory Rate 16 16 Blood Pressure 157/96 H 155/101 H Blood Pressure Mean 116 119 Pulse Ox 94 95 Oxygen Delivery Method Room Air Room Air MDM MDM MDM Narrative Medical decision making narrative: HISTORY OF PRESENT ILLNESS: 48-year-old male presents with nausea vomiting since yesterday. He further states he was taking narcotics since Achilles surgery last week. Notes he has been constipated. Last bowel movement was before surgery. He notes that he developed nausea and vomiting. Denies chest pain or fever. Notes history of hernia repair but no other abdominal surgeries. Denies his gallbladder and appendix. no CP, SOB. REVIEW OF SYSTEMS: Pertinent positives: Nausea vomit Pertinent negatives: Fever, melena, hematochezia, no CP, SOB PHYSICAL EXAM: Nursing triage notes reviewed, Vital signs reviewed Constitutional: please see mdm HENT: MMM Eyes: Pupils equal round and reactive to light, Extraocular muscles intact Neck: No stridor, no JVD, full neck ROM Lungs: Clear to auscultation, No wheezing or rales. No increased work of breathing, no conversational dyspnea, no accessory muscle use, no nasal flaring. No respiratory distress noted Heart: Regular rate and rhythm, No murmurs, No rubs and No gallops, 2+ distal pulses (radial, femoral, posterior tibial) in all extremities Abdomen: Soft, minimal TTP throughout, no rigidity, rebound or guarding, no obvious peritoneal signs, no palpable pulsatile abdominal masses, no auscultated abdominal bruit : No CVAT Extremities: No edema Neuro: No focal neurological deficits, cranial nerves II through XII intact, 5/5 strength in all extremities. Intact sensation to light touch in all extremities, 2+ reflexes bilateral patella tendons. Normal gait. No ataxia. Skin: No rash or lesions noted MEDICAL DECISION MAKING: Chief Complaint: Nausea vomiting External records reviewed: Reviewed prior CT scan: CT scan from January 2023 showed diverticulosis but no diverticulitis Factors affecting care: Anxiety, hernia, history of hernia repair Social determinants of health: none History obtained from others: none Consults: none [facility] Narrative: Patient was initially hypertensive with a blood pressure 157/96, tachycardic with pulse rate of 105, patient was afebrile and nontoxic-appearing otherwise. Abdominal exam with slight distention, diffuse tenderness. No peritoneal signs I considered the following differential diagnosis: AAA, small bowel obstruction, abdominal perforation, appendicitis, pancreatitis, hepatobiliary pathology (acute cholecystitis), mesenteric ischemia, pathology (ie nephrolithiasis, pyelonephritis). ALL IMAGES (IF OBTAINED) HAVE BEEN PERSONALLY REVIEWED AND INTERPRETED BY MYSELF. CBC without leukocytosis, severe anemia, no thrombocytopenia. CMP without evidence of acute kidney injury, significant electrolyte abnormality, anion gap to suggest end organ hypo-perfusion, no evidence of metabolic acidosis with a normal bicarbonate, no evidence of hepatobiliary obstructive pathology. Lipase is wnl indicating no pancreatic inflammation. CT scan abdomen pelvis was read reviewed personally by myself showed no evidence of obvious obstruction or perforation. The radiologist noted no acute process. Noted some bladder inflammation that could represent cystitis however the patient had no urinary complaints. No indication for UA at this time. The patient and/or family, caregivers express understanding. The patient and/or family, caregivers agrees with the plan. Shared decision making: I will have a discussion with the patient and or visitors regarding risk/benefits of further testing or admission. They will be made aware of of the risk/benefits inherent in this decision they will be given the opportunity to voice understanding. Total critical care time today provided was at least 0 minutes. This excludes separately billable procedures. Critical care time (if documented) is secondary to the patient having high probability of clinically significant/life threatening deterioration in the patient's condition which required my urgent intervention. Impression: 1. Acute abdominal pain 2. Nausea and vomiting 3. Opiate induced constipation Dispo: discharge home This note was generated with Zwipe dictation software. It may contain incorrect words, spelling, and punctuation that were not noted in review of the chart prior to signing. Lab Data Labs: Laboratory Results - last 24 hr 02/07/24 04:57 WBC 9.5 RBC 5.24 Hgb 15.4 Hct 45.1 MCV 86.1 MCH 29.4 MCHC 34.1 RDW Std Deviation 38.9 RDW Coeff of Francie 12.5 Plt Count 313 MPV 9.0 Immature Gran % (Auto) 0.500 Neut % (Auto) 81.9 H Lymph % (Auto) 12.9 L [place] % (Auto) 4.1 Eos % (Auto) 0.3 Baso % (Auto) 0.3 Absolute Neuts (auto) 7.7 Absolute Lymphs (auto) 1.22 Nucleated RBC % 0 Sodium 136 Potassium 3.8 Chloride 105 Carbon Dioxide 25.0 Anion Gap 6 BUN 21 H Creatinine 1.01 Estim Creat Clear Calc 105.45 Est GFR (MDRD) Af Amer 101 Est GFR (MDRD) Non-Af 84 BUN/Creatinine Ratio 20.8 H Glucose 148 H Calcium 9.1 Total Bilirubin 0.60 AST 14 L ALT 38 Alkaline Phosphatase 70 Total Protein 7.8 Albumin 3.3 Globulin 4.5 H Albumin/Globulin Ratio 0.7 L Lipase 16 Radiography Diagnostic Testing: Clinical Impression(s) from Imaging Studies Abdomen/Pelvis CT 02/07/24 04:42 IMPRESSION: 1. Mild diffuse wall thickening of the bladder with minimal adjacent stranding. Findings may indicate cystitis. 2. Hepatomegaly with fatty infiltration of the liver. Electronically Signed: Enoc Naidu MD at 6:22 EDT , Discharge Plan Triage Chief Complaint: Nausea/Vomiting ED Provider: Ayden Choudhury Dx/Rx/DC Orders Instructions: ED Vomiting (Adult) Prescriptions: New ondansetron 4 mg tablet,disintegrating 4 mg PO Q8H PRN PRN (Reason: Nausea) Qty: 10 0RF No Action Zyrtec 10 MG capsule 10 mg PO DAILY fluticasone propionate 1 SPRAY spray,suspension 2 sprays IH DAILY Patient Comments: Use 2 Sprays in each nostril once daily. Rinse mouth after use. duloxetine [Cymbalta] 30 mg Capsule,Delayed Release(Dr/Ec) 30 mg PO DAILY alprazolam [Xanax] 0.25 mg Tablet 0.25 mg PO DAILY PRN PRN (Reason: Anxiety) dicyclomine 20 mg tablet 20 mg PO BID PRN (Reason: abdominal pain) Qty: 20 0RF ondansetron 4 mg tablet,disintegrating 4 mg PO Q6H PRN (Reason: nausea and vomiting) Qty: 20 0RF hydrocodone-acetaminophen 5-325 mg tablet 1 tab PO ondansetron HCl 4 mg tablet 4 mg PO Q8H PRN PRN (Reason: nausea/vomiting) Primary Care Provider: Francisco Javier Osorio Referrals: Francisco Javier Osorio MD [Primary Care Provider] - Activity Restrictions/Additional Instructions: Thank you for trusting us with your care today! Please take Tylenol (2 pills, 650 mg), ibuprofen (2 pills, 400 mg) every 6 hours as needed for pain and fever control. Please take Zofran as needed for nausea vomiting control Please return to the emergency department if your symptoms change or worsen. Please begin taking bowel regiment which will include MiraLAX, Colace and senna. Please take these medicines as long as you are taking your narcotic pain medication to improve regularity and stool consistency. I also recommend going to local grocery store and obtaining fiber 1 cereal. Please eat a bowl for material daily while taking narcotic to improve consistency and regularity of bowel movements. Please follow with your primary care physician for further outpatient evaluation and management. Print Language: Citizen Of [place] Disposition Disposition: Home, Self Care
--- NOTE | 2024-02-07 04:42 | CT_ITS ---
EXAM: CT ABDOMEN AND PELVIS WITH INTRAVENOUS CONTRAST CLINICAL INDICATION: constipation, n/v TECHNIQUE: Helically acquired images were obtained of the abdomen and pelvis with intravenous contrast. This CT exam was performed using one or more of the following dose reduction techniques: automated exposure control, adjustment of the mA and/or kV according to patient size, and/or use of iterative reconstruction technique. CONTRAST: IV 100mL [id number] RADIATION DOSE: CTDIvol = 18.22 mGy, DLP = 1217.99 mGy-cm COMPARISON: CT abdomen and pelvis 01/29/2023 FINDINGS: LOWER THORAX: Bibasilar dependent atelectasis. No cardiomegaly. No significant pericardial effusion. ABDOMEN: LIVER: Hepatomegaly with fatty infiltration of the liver. GALLBLADDER AND BILE DUCTS: Unremarkable. No calcified gallstones. No gallbladder distention or wall edema. No intra- or extrahepatic biliary ductal dilation. PANCREAS: Unremarkable. No focal cystic or solid mass. SPLEEN: Unremarkable. Normal size without focal cystic or solid mass. ADRENALS: Unremarkable. No nodules. KIDNEYS AND URETERS: Unremarkable. Normal renal size and position. No hydronephrosis. STOMACH AND BOWEL: Diverticular disease of the colon but no diverticulitis. No stomach or bowel distention. PELVIS: APPENDIX: No evidence of acute appendicitis. BLADDER: Mild diffuse wall thickening of the bladder with minimal adjacent stranding. REPRODUCTIVE: Unremarkable as visualized. No mass. ABDOMEN and PELVIS: INTRAPERITONEAL SPACE: Unremarkable. No ascites or other fluid collection. No free air. BONES/JOINTS: Unremarkable. No suspicious lytic or blastic abnormality. SOFT TISSUES: Unremarkable. No discrete abdominal or pelvic wall hernia. VASCULATURE: Unremarkable. Abdominal aorta is non-dilated. LYMPH NODES: Unremarkable. No enlarged lymph nodes. CT/Abdomen/Pelvis W IV Cont ONLY IMPRESSION: 1. Mild diffuse wall thickening of the bladder with minimal adjacent stranding. Findings may indicate cystitis. 2. Hepatomegaly with fatty infiltration of the liver. Electronically Signed: Enoc Naidu MD at 6:22 EDT ,
[2024-02-07] MEDS: Famotidine 200 MG/20 ML MDV 20 MG in 0.9% Normal Saline (Pres. free 8 ML 300 MG IV (04:56)
[2024-02-07] MEDS: Ondansetron 4 MG/2 ML Vial IV (04:59)
--- OUTSIDE RECORDS SUMMARY | 2024-02-07 05:14 | XMS RPT_ITS | CCD ---
Author Organization [facility] Team Providers Care Side Boss Name Role Phone LINDSEY GONZALEZ Unavailable Unavailable LINDSEY GONZALEZ Unavailable Unavailable LUNA CORINNE Unavailable Unavailable CHARAN BELL Unavailable Unavailable SELF, SELF Unavailable Unavailable CHARAN BELL Unavailable Unavailable SELF, SELF Unavailable Unavailable ROBB VALENTINE Unavailable Unavailable ROBB VALENTINE Unavailable Unavailable Jake Conrad Primary Care Provider Devon KHANNA, Francisco Javier Dumont Primary Care Provider Devon KHANNA, Francisco Javier Dumont Primary Care Provider Devon KHANNA, Francisco Javier Dumont Primary Care Provider Jake Conrad MD Primary Care Provider Devon KHANNA, Francisco Javier Dumont Primary Care Provider JONATHAN NIELSEN Attending Unavailable JONATHAN NIELSEN Admitting Unavailable DEVON, KIARA Primary Care Unavailable LATISHA BIRMINGHAM Attending Unavailable EDEL PERDUE Referring Unavailable OSORIO, KIARA Primary Care Unavailable OSORIO, KIARA Primary Care Unavailable GERMAN WOODWARD Attending Unavailable EDEL PERDUE Referring Unavailable OSORIO, KIARA Primary Care Unavailable OSORIO, KIARA Referring Unavailable JONATHAN NIELSEN Attending Unavailable DEVON, KIARA Primary Care Unavailable JONATHAN NIELSEN Attending Unavailable JONATHAN NIELSEN Referring Unavailable OSORIO, KIARA Referring Unavailable OSORIO, KIARA Primary Care Unavailable OSORIO, KIARA Primary Care Unavailable JONATHAN NIELSEN Attending Unavailable OSORIO, KIARA Attending Unavailable OSORIO, KIARA Primary Care Unavailable EDEL PERDUE Attending Unavailable OSORIO, KIARA Primary Care Unavailable OSORIO, KIARA Primary Care Unavailable PERDUE, EDEL Referring Unavailable PERDUE, EDEL Attending Unavailable OSORIO, KIARA Referring Unavailable OSORIO, FRANCISCO JAVIER Dumont Primary Care Unavailable OSORIO, KIARA Primary Care Unavailable JONATHAN NIELSEN Attending Unavailable OSORIO, KIARA Referring Unavailable OSORIO, FRANCISCO JAVIER Dumont Primary Care Unavailable OSORIO, KIARA Primary Care Unavailable MADHURI CASIANO Referring Unavailable OSORIO, FRANCISCO JAVIER Dumont Primary Care Unavailable OSORIO, KIARA Referring Unavailable MADHURI CASIANO Attending Unavailable OSORIO, KIARA Primary Care Unavailable CARMEN ROJAS Referring Unavai lable OSORIO, KIARA Primary Care Unavailable JONATHAN FOSTER Attending Unavailable SELF Referring Unavailable TESTRAKADEEM, ASTON Referring Unavailable OSORIO, FRANCISCO JAVIER Dumont Primary Care Unavailable OSORIO, KIARA Primary Care Unavailable JONATHAN FSOTER Referring Unavailable OSORIO, KIARA Primary Care Unavailable TESTRAKE, ASTON Referring Unavailable OSORIO, KIARA Primary Care Unavailable CARMEN ROJAS Attending Michael ames TESTSOHAIL, ASTON Referring Unavailable OSORIO, KIARA Primary Care Unavailable OSORIO, KIARA Primary Care Unavailable JONATHAN NIELSEN Attending Unavailable SELF Referring Unavailable OSORIO, KIARA Primary Care Unavailable TESTRAKE, ASTON Referring Unavailable OSORIO, FRANCISCO JAVIER Dumont Primary Care Unavailable OSORIO, KIARA Primary Care Unavailable ENOC BYNUM Attending Unavailable TESTSOHAIL, ASTON Referring Unavailable OSORIO, KIARA Primary Care Unavailable OSORIO, KIARA Attending Unavailable OSORIO, KIARA Referring Unavailable OSORIO, FRANCISCO JAVIER Dumont Primary Care Unavailable OSORIO, KIARA Attending Unavailable OSORIO, KIARA Primary Care Unavailable OSORIO, KIARA Primary Care Unavailable JONATHAN NIELSEN Attending Unavailable JONATHAN NIELSEN Referring Unavailable TESTRAKADEEM, ASTON Referring Unavailable ENOC BYNUM Attending Unavailable OSORIO, KIARA Primary Care Unavailable TESTRAKE, ASTON Referring Unavailable ENOC BYNUM Attending Unavailable OSORIO, KIARA Primary Care Unavailable OSORIO, KIARA Primary Care Unavailable JONATHAN NIELSEN Referring Unavailable CATARINA ROBERTS Attending Unavailable FRANCISCO JAVIER OSORIO Primary Care Unavailable CATARINA ROBERTS Attending Unavailable FRANCISCO JAVIER OSORIO Primary Care Unavailable ASTON MCMAHAN Attending Unavailable FRANCISCO JAVIER OSORIO Primary Care Unavailable CARMEN ROJAS Attending CARMEN Dickey Admitting FRANCISCO JAVIER Preston Primary Care Unavailable Allergies Allergy Classification Reported Allergen(s) Allergy Type Date of Onset Reaction(s) Facility Prochlorperazine (1 source) Prochlorperazine Drug Allergy 06-03-19 Other: See Comments [facility] (20 sources) Prochlorperazine; Translations: [PROCHLORPERAZINE EDISYLATE] Drug Allergy 06-03-19 Other: See Comments [facility] Medications Current Medications Medication Drug Class(es) Dates Sig (Normalized) Sig (Original) acetaminophen 325 mg / HYDROcodone bitartrate 5 mg oral tablet (1 source) Opioid Agonist Start: 02-01-2024 End: 02-08-2024 take 1 tablet by mouth every four hours HYDROcodone-aceta minophen (NORCO) 5-325 mg per tablet Indications: Achilles tendinitis of left lower extremity Take 1 tablet by mouth every 4 hours for 7 days. 42 tablet 02/01/2024 02/08/2024 Active [id number] actuat albuterol 0.09 mg/actuat metered dose inhaler (20 sources) beta2-Adrenergic Agonist Start: 05-21-2020 End: 06-16-2023 take 2 puff(s) by inhalation every four hours as needed for wheezing albuterol HFA (VENTOLIN HFA) 90 mcg/actuation inhaler Indications: Acute cough Inhale 2 Puffs as instructed every 4 hours as needed for wheezing/shortnes s of breath. 54 g 1 06/16/2023 Active Comment on above: Inhale 2 Puffs as in structed every 4 hours as needed for Wheezing/Shortness of Breath. ALPRAZolam 0.25 mg oral tablet (20 sources) Benzodiazepine Start: 02-13-2013 End: 11-30-2023 take 1 tablet by mouth twice daily as needed for anxiety ALPRAZolam (XANAX) 0.25 MG tablet Take 1 Tab by mouth 2 times daily as needed for Anxiety. 10 Tab 1 02/13/2013 Active Comment on above: Take 0.25 mg by mout h. amoxicillin 875 mg oral tablet (3 sources) Penicillin-class Antibacterial Start: 12-19-2023 End: 12-26-2023 take 1 tablet by mouth twice daily amoxicillin (AMOXIL) 875 mg tablet Take 1 tablet by mouth two times a day for 7 days. 14 tablet 12/19/2023 12/26/2023 Active Start: 05-17-2022 End: 05-24-2022 take 1 tablet by mouth twice daily amoxicillin (AMOXIL) 875 mg tablet Take 1 tablet by mouth twice daily for 7 days. 14 tablet 0 05/17/2022 05/24/2022 Active Comment on above: Take 1 tablet by gilberto th twice daily for 7 days. amoxicillin 875 mg / clavulanate 125 mg oral tablet (2 sources) Penicillin-class Antibacterial Start: 11-06-2021 End: 11-16-2021 amoxicillin-clavula naif acid (AUGMENTIN) 875-125 mg per tablet Take 1 tablet by mouth twice daily for 10 days. FOR 10 DAYS. 20 tablet 0 11/06/2021 11/16/2021 Active Start: 09-20-2021 End: 09-26-2021 take 1 tablet by mouth twice daily amoxicillin-clavulanic acid (AUGMENTIN) 875-125 mg per tablet Take 1 tablet by mouth twice daily. 0 09/20/2021 09/26/2021 Active Comment on above: Take 1 tablet by gilberto th twice daily. Take 1 tablet by gilberto th twice daily for 10 days. FOR 10 DAYS. aspirin 325 mg oral tablet (1 source) Platelet Aggregation Inhibitor, Nonsteroidal Anti-inflammatory Drug Start: 02-01-2024 take 1 tablet by mouth twice daily aspirin 325 mg tablet Take 1 tablet by mouth two times a day. 60 tablet 1 02/01/2024 Active aspirin/acetaminop hen/caffeine (EXCEDRIN MIGRAINE ORAL) (20 sources) take 2 tablets by mouth every eight hours as needed aspirin/acetaminop hen/caffeine (EXCEDRIN MIGRAINE ORAL) Take 2 tablets by mouth every 8 hours as needed. Active aspirin/acetamin ophen/caffeine (EXCEDRIN MIGRAINE ORAL) Take by mouth. Active aspirin/acetamin ophen/caffeine (EXCEDRIN MIGRAINE ORAL) Take by mouth. 0 Active betamethasone 0.5 mg/ml / clotrimazole 10 mg/ml topical cream (20 sources) Azole Antifungal, Corticosteroid Start: 10-20-2020 End: 10-31-2023 clotrimazole-betamethasone (LOTRISONE) cream Indications: Dermatitis , Psoriasis Apply to affected area two times a day as needed. 45 g 10/31/2023 Active Comment on above: Apply to affected area twice daily as ne eded. cefdinir 300 mg oral capsule (1 source) Cephalosporin Antibacterial Start: 12-16-2022 End: 12-23-2022 take 1 capsule by mouth twice daily cefdinir (OMNICEF) 300 mg capsule Take 1 capsule by mouth twice daily for 7 days. 14 capsule 0 12/16/2022 12/23/2022 Active Comment on above: Take 1 capsule by mouth twice daily for 7 days. cephalexin 500 mg oral capsule (2 sources) Cephalosporin Antibacterial Start: 07-11-2023 End: 07-16-2023 take 1 capsule by mouth four times daily cephALEXin (KEFLEX) 500 mg capsule Take 1 capsule by mouth four times daily for 5 days. 20 capsule 0 07/11/2023 07/16/2023 Active Comment on above: Take 1 capsule by mouth four times daily for 5 days. Cetirizine (20 sources) Histamine-1 Receptor Antagonist take 1 tablet by mouth twice daily CETIRIZINE HCL (ZYRTEC ORAL) Take 1 tablet by mouth two times a day. 10 MG Active take 1 tablet by mouth twice claudette ly CETIRIZINE HCL (ZYRTEC ORAL) Take 1 tablet by mouth two times a day. Active take 1 tablet by mouth twice claudette ly CETIRIZINE HCL (ZYRTEC ORAL) Take 1 tablet by mouth two times a day. 0 Active CETIRIZINE HCL ( ZYRTEC ORAL) Take by mouth. 0 Active Comment on above: Take by mouth. cholecalciferol 0.025 mg oral capsule (1 source) Vitamin D Cholecalciferol, Vitamin D3, (VITAMIN D) 25 mcg (1,000 unit) cap Take 1,000 Units by mouth once daily. Active ciprofloxacin 3 mg/ml / dexamethasone 1 mg/ml otic suspension (5 sources) Corticosteroid, Quinolone Antimicrobial Start: 01-19-2024 ciprofloxacin-dexAMETH asone (CIPRODEX) 0.3-0.1 % otic suspension Use 4 Drops in the ears two times a day. 4 drops to affected ear twice daily for 7-10 days. 7.5 mL 01/19/2024 Active COMPOUNDED PRESCRIPTION (20 sources) Start: 06-10-2018 COMPOUNDED PRESCRIPTION Increase CPAP setting to 13 cm H2O pressure. Dx: KEYLA 1 Each 06/10/2018 Active Start: 06-10-2018 COMPOUNDED PRE SCRIPTION Increase CPAP setting to 13 cm H2O pressure. Dx: KEYLA 1 Each 0 06/10/2018 Active Comment on above: Increase CPAP settin g to 13 cm H2O pressure. Dx: KEYLA CPAP (20 sources) Start: 04-14-2018 CPAP Initiate CPAP @ 11 cm of water with humidification. Mask (per patient preference) optional chin strap (if indicated) , filters, tubing, humidifier and lifetime supplies. 1 Device 04/14/2018 Active Start: 04-14-2018 CPAP Initiate CPAP @ 11 cm of water with humidification. Mask (per patient preference) optional chin strap (if indicated) , filters, tubing, humidifier and lifetime supplies. 1 Device 0 04/14/2018 Active Comment on above: Initiate CPAP @ 11 c m of water with humidification. Mask (per patient preference) optional chin strap (if indicated) , filters, tubing, humidifier and lifetime supplies. docusate sodium 100 mg oral capsule (1 source) Start: 02-01-20 End: 02-15-20 take 1 capsule by mouth twice daily docusate sodium (COLACE) 100 mg capsule Take 1 capsule by mouth two times a day for 14 days. 28 capsule 02/01/2024 02/15/2024 Active doxycycline hyclate 100 mg oral tablet (1 source) Tetracycline-class Drug Start: 11-05-19 End: 11-15-19 take 1 tablet by mouth twice daily at mealtime doxycycline (VIBRA-TABS) 100 mg tablet Indications: Bug bite, initial encounter Take 1 tablet by mouth twice daily for 10 days. Take with food 20 tablet 0 11/04/2022 11/14/2022 Active Comment on above: Take 1 tablet by gilberto twice daily for 10 days. Take with food DULoxetine 30 mg delayed release oral capsule (20 sources) Serotonin and Norepinephrine Reuptake Inhibitor Start: 06-26-19 End: 07-27-19 24 take 1 capsule by mouth once daily DULoxetine (CYMBALTA) 30 mg capsule Indications: Anxiety and depression Take 1 capsule by mouth once daily. 90 capsule 3 07/27/2023 Active Start: 05-21-2020 End: 09-18-2020 take 1 capsule by mouth once daily DULoxetine (CYMBALTA) 20 mg capsule Indications: Anxiety and depression Take 1 capsule by mouth once daily. 90 capsule 1 05/21/2020 09/18/2020 Discontinued Start: 03-24-2014 duloxetine (CY MBALTA) 60 MG capsule TAKE ONE CAPSULE EVERY DAY 90 Cap 0 03/24/2014 Active Comment on above: Take 1 capsule by mo [facility] once daily. fluticasone propionate 0.05 mg/actuat metered dose nasal spray (20 sources) Corticosteroid Start: 05-21-19 End: 09-06-19 24 take 2 spray(s) by mouth once daily fluticasone (FLONASE) 50 mcg/actuation nasal spray Indications: Seasonal allergic rhinitis, unspecified trigger Use 2 Sprays in each nostril once daily. Rinse mouth after use. 3 Each 3 09/06/2023 Active Comment on above: Use 2 Sprays in each nostril once daily. Rinse mouth after use. iv contrast (will be provided with radiology test) (5 sources) Start: 01-23-20 iv contrast (will be provided with radiology test) Indications: Bladder wall thickening CT Urogram WO/W Inject, intravenously, once for 1 dose.No IV access, insert saline lock prior to the beginning of sedation, infusion, injection of imaging exam. Discontinue saline lock post exam. If Pt. has a central line or IVAD, may access for administration according to line specific nursing protocol. Once exam is complete flush line and de-access according to line specific nursing protocol in the CT contrast administration guidelines link. 1 Each 01/23/2024 Active Start: 01-19-2024 End: 01-20-2024 inject 1 dose intravenously once iv contrast (will be provided with radiology test) MRI Brain Inject, intravenously, once for 1 dose.No IV access, insert saline lock prior to beginning of sedation, infusion, injection of imaging exam.Discontinue saline lock post exam. If Pt. has a central line or IVAD, may access for administration according to line specific nursing protocol.Once exam is complete flush line and de-access according to line specific nursing protocol in the MR contrast administration guidelines link 1 Each 01/19/2024 01/20/2024 Active mupirocin 0.02 mg/mg topical ointment (2 sources) RNA Synthetase Inhibitor Antibacterial Start: 11-04-2022 End: 11-04-2022 mupirocin (BACTROBAN) 2 % ointment Indications: Bug bite, initial encounter Apply 1 application to affected area three times daily for 10 days. 15 g 1 11/04/2022 11/04/2022 Discontinued Start: 11-04-2022 End: 11-14-2022 mupirocin (BACTROBAN) 2 % oi ntment Indications: Bug bite, initial encounter Apply 1 application to affected area twice daily for 10 days. Apply to the open wound area until healed then discontinue 15 g 1 11/04/2022 11/14/2022 Active Comment on above: Apply 1 application to affected area three times daily for 10 days. Apply 1 application to affected area twice daily for 10 days. Apply to the open wound area until healed then discontinue Naproxen (20 sources) Nonsteroidal Anti-inflammatory Drug take 1 tablet by mouth every eight hours as needed naproxen sodium (ALEVE ORAL) Take 1 tablet by mouth every 8 hours as needed. Active naproxen sodium (ALEVE ORAL) Take by mouth. Active naproxen sodium (ALEVE ORAL) Take by mouth. 0 Active nirmatrelvir tablet 300 mg (150 mg x 2) and ritonavir tablet 100 mg in a dose pack (PAXLOVID) (1 source) Start: 03-11-2022 End: 03-16-2022 nirmatrelvir tablet 300 mg (150 mg x 2) and ritonavir tablet 100 mg in a dose pack (PAXLOVID) Administer TWO pink nirmatrelvir 150 mg tablets and ONE white ritonavir 100 mg tablet for a total of three tablets twice daily. 30 tablet 0 03/11/2022 03/16/2022 Active Comment on above: Administer TWO pink nirmatrelvir 150 mg tablets and ONE white ritonavir 100 mg tablet for a total of three tablets twice daily. ondansetron 4 mg oral tablet (17 sources) Serotonin-3 Receptor Antagonist Start: 02-01-2024 End: 03-02-2024 take 1 tablet by mouth every eight hours as needed ondansetron (ZOFRAN) 4 mg tablet Take 1 tablet by mouth every 8 hours as needed for nausea/vomiting. 30 tablet 02/01/2024 03/02/2024 Active Start: 01-30-2023 End: 08-04-2023 ondansetron orally disintegr ating (ZOFRAN ODT) 4 mg disintegrating tablet predniSONE 20 mg oral tablet (4 sources) Start: 01-19-2024 End: 01-26-2024 take 2 tablets by mouth once daily predniSONE (DELTASONE) 20 mg tablet Take 2 tablets by mouth once daily for 7 days. 14 tablet 01/19/2024 01/26/2024 Active 1000 ml sodium chloride 9 mg/ml injection (1 source) Start: 01-23-2024 End: 01-23-2024 0.9 % sodium chloride (NACL 0.9%) infusion Indications: Bladder wall thickening Administer at rate defined per CT contrast administration specifications. To be provided with radiology test. 150 mL 01/23/2024 01/23/2024 Active triamcinolone acetonide 1 mg/ml topical cream (7 sources) Corticosteroid Start: 01-19-2024 triamcinolone acetonide (KENALOG) 0.1 % cream Apply 1 application to affected area two times a day. 15 g 3 01/19/2024 Active Start: 11-04-2022 End: 11-14-2022 triamcinolone acetonide (TRACY ALOG) 0.1 % cream Indications: Bug bite, initial encounter Apply 1 application to affected area twice daily for 10 days. Apply to affected area- itchy area surrounding the open lesion until resolved then discontinue 15 g 1 11/04/2022 11/14/2022 Active Comment on above: Apply 1 application to affected area twice daily for 10 days. Apply to affected area- itchy area surrounding the open lesion until resolved then discontinue Completed/Discontinued Medications Medication Drug Class(es) Dates Sig (Normalized) Sig (Original) acyclovir 800 mg oral tablet (8 sources) Herpesvirus Nucleoside Analog DNA Polymerase Inhibitor, Herpes Simplex Virus Nucleoside Analog DNA Polymerase Inhibitor, Herpes Zoster Virus Nucleoside Analog DNA Polymerase Inhibitor Start: 11-02-2018 acyclovir (ZOVIRAX) 800 mg tablet Acyclovir Active 800 MG 5 TIMES DAILY November 02, 2018 8:54pm 0 11/02/2018 Active Comment on above: Acyclovir Active 800 MG 5 TIMES DAILY November 02, 2018 8:54pm apremilast 10 mg oral tablet (1 source) End: 09-18-2020 take 10 mg by mouth once daily apremilast (OTEZLA STARTER) 10 mg (4)-20 mg (4)-30 mg(19) DsPk Take 10 mg by mouth once daily. 09/18/2020 Discontinued benzonatate 100 mg oral capsule (10 sources) Non-narcotic Antitussive Start: 06-16-2023 End: 08-04-2023 take 100-200 mg by mouth every eight hours as needed for cough and cough benzonatate (TESSALON PERLES) 100 mg capsule Indications: Acute cough Take 1-2 capsules by mouth three times a day as needed. 60 capsule 1 06/16/2023 08/04/2023 Discontinued (Course of therapy completed) Start: 09-02-2022 End: 11-04-2022 take 1 capsule by mouth three times daily as needed for cough benzonatate (TESSALON PERLES) 100 mg capsule Indications: Viral illness , Acute cough Take 1 capsule by mouth three times daily as needed for cough. 30 capsule 0 09/02/2022 11/04/2022 Discontinued Start: 03-11-2022 End: 05-17-2022 take 1 capsule by mouth every eight hours as needed benzonatate (TESSALON PERLES) 100 mg capsule Take 1 capsule by mouth three times daily as needed for cough. 15 capsule 0 03/11/2022 05/17/2022 Discontinued (Course of therapy completed) Comment on above: Take 1 capsule by [facility] three times daily as needed for cough. Take 1-2 capsules by mouth three times a day as needed. dicyclomine hydrochloride 20 mg oral tablet (16 sources) Anticholinergic Start: 2022 End: 2023 dicyclomine (BENTYL) 20 mg tablet 1 ml guselkumab 100 mg/ml prefilled syringe (18 sources) Interleukin-23 Antagonist End: 2023 inject 100 mg by subcutaneous injection every month guselkumab (TREMFYA) 100 mg/mL Inject 100 mg subcutaneously once every month. 0 08/04/2023 Discontinued (Discontinued by another Health Care Provider) Comment on above: Inject 100 mg subcut aneously once every month. 1 ml ixekizumab 80 mg/ml auto-injector (12 sources) Interleukin-17A Antagonist End: 2023 inject 80 mg by subcutaneous injection once ixekizumab (TALTZ AUTOINJECTOR) 80 mg/mL pen Inject 80 mg subcutaneously one time only. 0 09/10/2023 Discontinued Comment on above: Inject 80 mg subcuta neously one time only. magnesium citrate 58.2 mg/ml oral solution (1 source) Start: 2020 End: 2020 magnesium citrate solution Drink 1/3 of bottle, wait 4hrs for results. If no stool, drink next 1/3 bottle. Wait 4hrs. No results, then drink last 1/3 of bottle. For severe constipation. 295 mL 07/01/2020 09/18/2020 Discontinued polyethylene glycol 3350 [id number] mg / potassium chloride 2970 mg / sodium bicarbonate 6740 mg / sodium chloride 5860 mg / sodium sulfate 10540 mg powder for oral solution (1 source) Osmotic Laxative Start: 2022 End: 2022 peg 3350-Electrolytes (GOLYTELY) 236-22.74-6.74 -5.86 gram suspension Indications: Abdominal pain, left lower quadrant , Rectal bleeding Take 4,000 mL by mouth one time only for 1 dose. Refer to printed prep instructions from your provider. 4000 mL 0 02/01/2023 02/01/2023 Comment on above: Take 4,000 mL by gilberto th one time only for 1 dose. Refer to printed prep instructions from your provider. Pseudoephedrine (1 source) alpha-Adrenergic Agonist take 1 tablet by mouth twice daily pseudoephedrine HCl (SUDAFED ORAL) Take 1 tablet by mouth twice daily. 0 Active Comment on above: Take 1 tablet by gilberto th twice daily. Problems Active Problems Problem Classification Problem Date Documented Da te Episodic/Chronic Allergic reactions (2 sources) Inflammatory dermatosis; Translations: [Dermatitis, unspecified] Episodic Anal and rectal conditions (1 source) Perianal abscess; Translations: [Anal abscess] Episodic Anxiety disorders (20 sources) Other specified anxiety disorders; Translations: [Panic attack] Onset: 02-13-2013 02-13-2013 Chronic Coronary atherosclerosis and other heart disease (6 sources) Other forms of angina pectoris; Translations: [Angina pectoris, unspecified] Onset: 03-10-2017 Chronic Disorders of lipid metabolism (20 sources) Hyperlipidemia; Translations: [Hyperlipidemia, unspecified] Onset: 08-04-2023 08-04-2023 Chronic E Codes: Natural/environment (1 source) Insect bite - wound; Translations: [Bitten or stung by nonvenomous insect and other nonvenomous arthropods, initial encounter] 11-04-2022 Episodic Epilepsy; convulsions (3 sources) Seizure disorder; Translations: [Epilepsy, unspecified, not intractable, without status epilepticus] Onset: 11-07-2023 11-01-2023 Chronic Genitourinary symptoms and ill-defined conditions (1 source) Mixed urinary incontinence; Translations: [Mixed incontinence] 01-23-2024 Chronic Genitourinary symptoms and ill-defined conditions (1 source) Urgent desire to urinate; Translations: [Urgency of urination] 01-23-2024 Episodic Mood disorders (4 sources) Depressive disorder; Translations: [Depression] Onset: 02-13-2013 02-13-2013 Chronic Mood disorders (1 source) Mood disorders; Translations: [Anxiety and depression] Onset: 02-27-2018 Nonspecific chest pain (1 source) Atypical chest pain; Translations: [Other chest pain] 10-31-2023 Episodic Nutritional deficiencies (20 sources) Vitamin D deficiency; Translations: [Vitamin D deficiency, unspecified] Onset: 11-02-2023 11-02-2023 Chronic Other bone disease and musculoskeletal deformities (1 source) Disorder of bone, unspecified; Translations: [Bone disorder] Onset: 01-23-2024 Episodic Other circulatory disease (1 source) Elevated blood-pressure reading without diagnosis of hypertension; Translations: [Elevated blood-pressure reading, without diagnosis of hypertension] 06-13-2023 Episodic Other connective tissue disease (1 source) Pain in left foot; Translations: [Pain in left foot] 10-10-2023 Episodic Other connective tissue disease (1 source) Calcaneal spur of left foot; Translations: [Calcaneal spur, left foot] 10-15-2023 Episodic Other connective tissue disease (20 sources) Heel pain; Translations: [Pain in left foot] Onset: 11-16-2023 11-16-2023 Episodic Other connective tissue disease (16 sources) Left achilles tendonitis; Translations: [Achilles tendinitis, left leg] Onset: 12-19-2023 12-08-2023 Episodic Other connective tissue disease (2 sources) Achilles tendinitis, left leg; Translations: [Achilles tendinitis of left lower extremity] Onset: 12-19-2023 Episodic Other diseases of bladder and urethra (1 source) Hypertrophy of bladder; Translations: [Other specified disorders of bladder] 01-23-2024 Chronic Other diseases of bladder and urethra (1 source) Other specified disorders of bladder; Translations: [Bladder wall thickening] Onset: 01-23-2024 Chronic Other ear and sense organ disorders (1 source) Asymmetrical sensorineural hearing loss; Translations: [Sensorineural hearing loss, bilateral] 01-19-2024 Chronic Other ear and sense organ disorders (1 source) Sensorineural hearing loss, unilateral, left ear, with unrestricted hearing on the contralateral side; Translations: [Sensorineural hearing loss, unilateral] 01-19-2024 Chronic Other ear and sense organ disorders (1 source) Chronic eczema of external auditory canal; Translations: [Other otitis externa, bilateral] 01-19-2024 Chronic Other ear and sense organ disorders (1 source) Impacted cerumen in left ear; Translations: [Impacted cerumen, left ear] Episodic Other ear and sense organ disorders (2 sources) Acute infective otitis externa; Translations: [Other infective otitis externa, bilateral] 06-13-2023 Episodic Other ear and sense organ disorders (1 source) Unspecified acute noninfective otitis externa, right ear; Translations: [Acute otitis externa of right ear, unspecified type] Onset: 01-19-2024 Episodic Other ear and sense organ disorders (1 source) Acute otitis externa of right ear; Translations: [Unspecified acute noninfective otitis externa, right ear] 01-19-2024 Episodic Other gastrointestinal disorders (1 source) Constipation; Translations: [Constipation, unspecified] 07-01-2020 Episodic Other inflammatory condition of skin (20 sources) Psoriasis; Translations: [Psoriasis, unspecified] Onset: 08-04-2023 12-16-2022 Chronic Other lower respiratory disease (2 sources) Cough; Translations: [Acute cough] 06-13-2023 Episodic Other male genital disorders (1 source) Male erectile dysfunction, unspecified; Translations: [Impotence of organic origin] 12-16-2022 Chronic Other nervous system disorders (1 source) Other chronic pain; Translations: [Chronic pain of left ankle] Onset: 11-10-2023 Chronic Other nervous system disorders (1 source) Disorder of smell; Translations: [Unspecified disturbances of smell and taste] 10-31-2023 Episodic Other non-traumatic joint disorders (2 sources) Multiple joint pain; Translations: [Pain in unspecified joint] 12-16-2022 Episodic Other non-traumatic joint disorders (2 sources) Chronic ankle pain; Translations: [Pain in left ankle and joints of left foot] 10-10-2023 Episodic Other non-traumatic joint disorders (1 source) Pain in left ankle and joints of left foot; Translations: [Chronic pain of left ankle] Onset: 11-10-2023 Episodic Other nutritional; endocrine; and metabolic disorders (20 sources) Obese class I; Translations: [Obesity, unspecified] Onset: 02-27-2018 02-27-2018 Chronic Other upper respiratory disease (2 sources) Other allergic rhinitis; Translations: [Other allergic rhinitis] Onset: 01-24-2017 Chronic Other upper respiratory disease (4 sources) Allergic rhinitis; Translations: [Allergic rhinitis, unspecified] Onset: 02-13-2013 02-13-2013 Chronic Other upper respiratory disease (20 sources) Seasonal allergic rhinitis; Translations: [Other seasonal allergic rhinitis] Onset: 02-27-2018 02-27-2018 Chronic Residual codes; unclassified (20 sources) Obstructive sleep apnea syndrome; Translations: [Obstructive sleep apnea (adult) (pediatric)] Onset: 04-13-2018 04-13-2018 Chronic Residual codes; unclassified (1 source) Obstructive sleep apnea (adult) (pediatric); Translations: [KEYLA (obstructive sleep apnea)] Onset: 04-13-2018 Chronic Residual codes; unclassified (3 sources) History of clinical finding in subject; Translations: [Personal history of other specified conditions] 10-28-2023 Episodic Residual codes; unclassified (7 sources) Personal history of other specified conditions; Translations: [Personal history of other specified diseases] Onset: 11-07-2023 11-07-2023 Episodic Skin and subcutaneous tissue infections (3 sources) Infection of skin; Translations: [Local infection of the skin and subcutaneous tissue, unspecified] 11-04-2022 Episodic Unclassified (6 sources) Encounter for screening for malignant neoplasm of prostate; Translations: [Patient encounter status] Onset: 01-24-2017 12-16-2022 Episodic Unclassified (1 source) Acute cough; Translations: [Acute cough] Onset: 06-07-2023 Past or Other Problems Problem Classification Problem Date Documented Da te Episodic/Chronic Abdominal pain (20 sources) Left lower quadrant pain; Translations: [Left lower quadrant pain] Onset: 02-01-2023 Resolved: 05-02-2023 01-31-2023 Episodic Coma; stupor; and brain damage (20 sources) Daytime somnolence; Translations: [Somnolence] Onset: 02-27-2018 Resolved: 09-28-2018 09-28-2018 Episodic Gastrointestinal hemorrhage (20 sources) Rectal hemorrhage; Translations: [Hemorrhage of anus and rectum] Onset: 02-01-2023 Resolved: 05-02-2023 01-31-2023 Episodic Immunizations and screening for infectious disease (7 sources) Hepatitis C antibody test positive; Translations: [Other specified abnormal immunological findings in serum] Onset: 06-13-2023 Episodic Medical examination/evaluation (2 sources) Encounter for general adult medical examination without abnormal findings; Translations: [Encounter for general adult medical examination without abnormal findings] Onset: 01-24-2017 Episodic Nonmalignant breast conditions (4 sources) Lump of subareolar area of left breast; Translations: [Unspecified lump in left breast, subareolar] Onset: 02-23-2023 01-31-2023 Episodic Other circulatory disease (20 sources) Elevated blood pressure; Translations: [Elevated blood-pressure reading, without diagnosis of hypertension] Onset: 02-27-2018 Resolved: 09-28-2018 09-28-2018 Episodic Other connective tissue disease (1 source) Pain in left foot; Translations: [Pain in left foot] Onset: 10-10-2023 Episodic Other ear and sense organ disorders (1 source) Other infective otitis externa, bilateral; Translations: [Other infective acute otitis externa of both ears] Onset: 06-07-2023 Episodic Other non-traumatic joint disorders (4 sources) Pain in left shoulder; Translations: [Pain in left shoulder] Onset: 03-15-2017 Episodic Other non-traumatic joint disorders (1 source) Pain in unspecified joint; Translations: [Pain in joint involving multiple sites] Onset: 11-01-2023 Episodic Other upper respiratory infections (4 sources) Acute sinusitis; Translations: [Other acute sinusitis] Onset: 06-07-2023 Episodic Otitis media and related conditions (8 sources) Acute suppurative otitis media without spontaneous rupture of ear drum; Translations: [Acute suppurative otitis media without spontaneous rupture of ear drum, bilateral] Onset: 06-07-2023 Episodic Unclassified (2 sources) Family history of ischemic heart disease and other diseases of the circulatory system; Translations: [Family history of ischemic heart disease and other diseases of the circulatory system] Onset: 03-10-2017 Episodic Viral infection (20 sources) Recurrent herpes simplex; Translations: [Other herpesviral infection] Onset: 02-04-2019 02-04-2019 Episodic Results Test Name Value Interpretation Reference Range Facility ANES POSTPROC EVALon 024 ANES POSTPROC EVAL HNO ID: [id number] Author: CARMEN LEWIS MD Service: Anesthesiology Author Type: Anesthesiologist Type: Anesthesia Postprocedure Evaluation Filed: 02/01/2024 13:50 Note Text: POST ANESTHESIA EVALUATION NOTE : 1975 Procedure Summary Date: 02/01/24 Room / Location: [id number] / [facility] Anesthesia Start: 1126 Anesthesia Stop: 1300 Procedures: REPAIR ACHILLES TENDON SECONDARY (Left: Ankle) OSTECTOMY CALCANEUS (Left: Foot) RELEASE TENDON EXTREMITY LOWER (Left: Ankle) Diagnosis: Achilles tendinitis of left lower extremity (Achilles tendinitis of left lower extremity [M76.62]) Surgeons: Carmen Rojas MD Responsible Provider: Jonathan Butler MD Anesthesia Type: general, regional ASA Status: 2 Anesthesia Type: general, regional Airway Type: LMA Last Vitals Vitals Value Taken Time BP 126/76 02/01/24 1330 Temp 36.7 ?C (98 ?F) 02/01/24 1330 Pulse 96 02/01/24 1343 Resp 21 02/01/24 1343 SpO2 100 % 02/01/24 1343 Vitals shown include unfiled device data. Post Anesthesia Patient Status Patient Evaluation: PACU. PACU/ICU Patient Condition: stable. Anticipated Disposition: phase 2 then home. Neurological Status: aware and responsive. Pulmonary Status: breathing comfortably on room air Airway Control: returned to baseline unsupported. Cardiovascular Status: stable. Pain Management: clinically adequate - multimodal analgesia pain management approach Postoperative Hydration: acceptable. Intraoperative Events: no significant anesthesia events Recommendation: continue current plan of care. Anesthesia Observations No Documentation SIGNATURE: Carmen Lewis MD PATIENT NAME: Aston Napoles DATE: February 01, 2024 TIME: 1:50 PM CSN: [id number] [facility] ANES PRE-OPon 02-01-2024 ANES PRE-OP HNO ID: [id number] Author: JONATHAN BUTLER MD Service: Anesthesiology Author Type: Anesthesiologist Type: Anesthesia Preprocedure Evaluation Filed: 02/01/2024 10:40 Note Text: ANESTHESIOLOGY DAY OF SURGERY NOTE : 1975 Procedure Information Date/Time: 02/01/24 1045 Procedures: REPAIR ACHILLES TENDON SECONDARY (Left: Ankle) - General and Pop Block OSTECTOMY CALCANEUS (Left: Foot) RELEASE TENDON EXTREMITY LOWER (Left: Ankle) TRANSFER TENDON EXTREMITY LOWER (Left: Ankle) [facility] Surgeons: Carmen Rojas MD Estimated body mass index is 33.22 kg/m? as calculated from the following: Height as of this encounter: 170.2 cm (5' 7 ). Weight as of this encounter: 96.2 kg (212 lb 1.3 oz). Most recent hematocrit and potassium results: Hematocrit 44.3 11/01/2023 Potassium 4.1 11/01/2023 Relevant Problems ANESTHESIA (+) KEYLA (obstructive sleep apnea) NEURO-PSYCH (+) History of seizures PULMONARY (+) KEYLA (obstructive sleep apnea) I - PHYSICAL EVALUATION AIRWAY Patient intubated: No. Tracheostomy tube not present Mallampati: II. TM distance: >3 FB. Neck ROM: full ROM without neurological symptoms. Mouth opening: adequate. Short neck: no. Thick neck: no DENTAL Dental findings: teeth intact. Additional exam findings: yes. CARDIOVASCULAR Rhythm: regular PULMONARY Breath sounds clear to auscultation. II - ANESTHESIA PLAN ASA Score: 2 Anesthetic Plan: general and regional Airway type: ETT NPO Status: adequate Beta Racheal Monitoring Plan Monitoring plan: Standard ASA. Post Procedure Analgesic Plan Postoperative analgesic plan: parenteral or oral opioids, peripheral nerve block and multimodal analgesia. Informed Consent Anesthetic risks, benefits, alternatives, personnel and consent discussed: yes. Patient / Responsible Democrat agrees to proceed: yes Patient / Surrogate agrees to blood products: yes DNR status not reviewed with patient and/or family prior to surgery. Significant changes in the patient condition since the History and Physical, not otherwise documented in primary service progress note: no. Potential Anesthesia issues that may suggest increased risk of complications or contraindication to planned procedure: none. Discussed the possibility of lip / dental damage: yes Vitals Value Taken Time BP 150/96 02/01/24 1035 Pulse 78 02/01/24 1039 Resp 18 02/01/24 1039 Temp 36.2 ?C (97.2 ?F) 02/01/24 0923 SpO2 100 % 02/01/24 1039 Vitals shown include unfiled device data. Facility-Administered Medications as of 02/01/2024 Medication Dose Route Frequency lidocaine 10 mg/mL (1 %) 1-2 mg injection (XYLOCAINE) 0.1-0.2 mL INTRADERMAL PRN lactated ringers iv infusion 5-30 mL/hr INTRAVENOUS CONTINUOUS NaCl 0.9% iv flush bag 20 mL INTRAVENOUS PRN ceFAZolin iv piggyback 2 g in D5W (iso-osmotic) 100 mL (ANCEF) 2 g INTRAVENOUS Pre-Op Once Outpatient Medications as of 02/01/2024 Medication Sig Cholecalciferol, Vitamin D3, (VITAMIN D) 25 mcg (1,000 unit) cap Take 1,000 Units by mouth once daily. aspirin/acetaminophen/caffe ine (EXCEDRIN MIGRAINE ORAL) Take 2 tablets by mouth every 8 hours as needed. naproxen sodium (ALEVE ORAL) Take 1 tablet by mouth every 8 hours as needed. DULoxetine (CYMBALTA) 30 mg capsule Take 1 capsule by mouth once daily. CETIRIZINE HCL (ZYRTEC ORAL) Take 1 tablet by mouth two times a day. 10 MG clotrimazole-betamethasone (LOTRISONE) cream Apply to affected area two times a day as needed. fluticasone (FLONASE) 50 mcg/actuation nasal spray Use 2 Sprays in each nostril once daily. Rinse mouth after use. albuterol HFA (VENTOLIN HFA) 90 mcg/actuation inhaler Inhale 2 Puffs as instructed every 4 hours as needed for wheezing/shortness of breath. COMPOUNDED PRESCRIPTION Increase CPAP setting to 13 cm H2O pressure. Dx: KEYLA CPAP Initiate CPAP @ 11 cm of water with humidification. Mask (per patient preference) optional chin strap (if indicated) , filters, tubing, humidifier and lifetime supplies. I have interviewed and examined the patient. I have reviewed the medical record and/or the pre-anesthesia evaluation, pertinent labs, and test results. This contains updated information obtained within 48 hours of Surgery/Procedure. SIGNATURE: Jonathan Butler MD PATIENT NAME: Aston Napoles DATE: February 01, 2024 TIME: 10:40 AM CSN: [id number] [facility] BRIEF OP NOTon 02-01-2024 BRIEF OP NOT HNO ID: [id number] Author: JUAN LOUISE MD Service: Orthopaedic Surgery Author Type: Resident Type: Brief Op Note Filed: 02/01/2024 12:57 Note Text: BRIEF OP NOTE LOG ID: [id number] Surgery/Procedure Date: 02/01/2024 Incision/Procedure Start Time: 11:56 AM Incision Close/Procedure End Time: Surgeon(s)/Proceduralist(s) and Professional Skateboarder(s): Surgeons and Role: * Carmen Rojas MD - Primary * Tung Sheffield MD - Resident - Assisting * Juan Louise MD - Resident - Assisting Pre-Op/Pre-Procedure Diagnosis: Left Insertional Angle's tendonitis Post-Op/Post-Procedure Diagnosis: Left Insertional San [place]'s tendonitis Procedure(s): Left [place]'s Tendon Debridement, Left Calcaneal Exostectomy Anesthesia: General Estimated Blood Loss: 10 mls Specimens Removed: * No specimens in log * Drain: Implant Name Type Inv. Item Serial No. Wire Twister Lot No. LRB No. Used Action SYSTEM SPEEDBRIDGE JUMPSTART [employer] FIXATION STERILE ACHILLES - [id number] Implant SYSTEM SPEEDBRIDGE JUMPSTART BIOCOMPOSITE FIXATION STERILE ACHILLES [employer] [id number] Left 1 Implanted Complications: None Patient was accompanied to the next level of care by a licensed practitioner from the surgical team pending completion of this brief op note (or operative note) Post-Op Plan: - Weight-bearing status: NWB LLE - Antibiotics: periop ancef - DVT prophylaxis - SCDs, ASA 325 BID - Pain - PO [place] 5-325 q4 for 7 days - Regular diet - Keep splint clean, dry, elevated, keep pressure off the heel - Bowel regimen: Colace 100mg BID - Nausea: Zofran 4mg q8hr PRN SIGNATURE: Juan Louise MD PATIENT NAME: Aston Napoles DATE: February 01, 2024 TIME: 12:54 PM PAGER/CONTACT #: [phone] [facility] NURSING PROGon 02-01-2024 NURSING PROG HNO ID: [id number] Author: GAETANO BERNSTEIN RN Service: Nursing Author Type: Registered Nurse Type: Nursing Progress Note Filed: 02/01/2024 13:09 Note Text: POST OP LEARNING RESPONSE INSTRUCTION PROVIDED TO: Patient and Significant Other METHOD OF INSTRUCTION: Individual instruction Written instruction/Handouts Verbal instruction PATIENT / FAMILY RESPONSE: Verbalizes understanding of: POST-OPERATIVE INSTRUCTIONS-Correct actions to take to reduce postoperative complications FOLLOW-UP PLAN: Patient instructed to call with any further issues SUPPLEMENTAL MATERIAL: None REFERRAL (RECOMMENDATION): None Electronically Signed By: Gaetano Bernstein RN In Department: [facility] - [facility] NURSING PROG HNO ID: [id number] Author: GAETANO BERNSTEIN RN Service: Nursing Author Type: Registered Nurse Type: Nursing Progress Note Filed: 02/01/2024 09:39 Note Text: PRE OP LEARNING ASSESSMENT PROCEDURE/SURGERY: SURGERY: Left ankle READINESS TO LEARN COGNITIVE ABILITY: Alert and oriented MOTIVATION TO LEARN: Interested FAMILY SUPPORT: High - Very involved in pt care PATIENT LEARNS BEST BY: Individual Instruction Verbal Instruction FACTORS AFFECTING LEARNING: None PHYSICAL LIMITATIONS AFFECTING LEARNING: None Electronically Signed By: Gaetano Bernstein RN In Department: [facility] - [facility] OPERATIVE NOon 02-01-2024 OPERATIVE NO HNO ID: [id number] Author: CARMEN ROJAS MD Service: Orthopaedic Surgery Author Type: Physician Type: Operative Report Filed: 02/01/2024 13:33 Note Text: OPERATIVE/PROCEDURE REPORT LOG ID: [id number] Surgery/Procedure Date: 02/01/2024 Incision/Procedure Start Time: 11:56 AM Incision Close/Procedure End Time: 12:54 PM Surgeon(s)/Proceduralist(s) and Professional Skateboarder(s): Surgeons and Role: * Carmen Rojas MD - Primary * Tung Sheffield MD - Resident - Assisting * Juan Louise MD - Resident - Assisting No Additional Staff Procedure(s): Left Achilles tendon secondary repair (CPT 69333) Left calcaneal Exostectomy (CPT 16964) Left Achilles tendon debridement (CPT 87220) Anesthesia: General Pre-Op/Pre-Procedure Diagnosis: Left Insertional achilles tendonitis Post-Op/Post-Procedure Diagnosis: Left Insertional achilles tendonitis Estimated Blood Loss: 5 mls Specimens: None Implantable Devices: None Drains: None Complications: None I/primary surgeon/proceduralist performed the procedure with assistance. Indications: This is a 48 year old male who presented to clinic for evaluation of Left insertional achilles tendonitis. He attempted non-operative treatment in the form of immobilization, PT, heel lifts, stretching. He did not have any pain relief with these modalities. I recommended operative treatment, in the form of a Left achilles debridement. We discussed the risks and benefits of surgery, including but not limited to, bleeding, infection, damage to nerves and vessels, incomplete relief of symptoms, DVT, need for further surgery, and the risks of anesthesia. They understood all the risks, all other questions were answered, and consent was obtained. Details of Operative Procedure: The patient was met in the preanesthesia holding area. His correct Left leg was identified and marked. He had a popliteal block performed by the anesthesiologist. He was then brought to the operating room, and transferred to the operating room table. General Anesthesia was induced. Patient then had a well-padded thigh tourniquet placed on the operative leg. They were positioned in a sloppy lateral position. The operative leg was then thoroughly cleansed with a chlorhexidine sponge and soap. The leg was then prepped and draped in the normal sterile fashion. Perioperative antibiotics were given. A timeout was then completed confirming the correct patient, operative site, participants, equipment, antibiotics. The operative extremity was then exsanguinated with an Esmarch and the tourniquet elevated to 250 mmHg. A standard midline incision was made over the Achilles tendon centered at the insertion. The skin and subcutaneous tissue was sharply incised down to the level of the tendon. A midline split was made in the Achilles tendon. And the tendon sharply elevated off the calcaneal tuberosity, leaving the medial and lateral 25% attached. All degenerative tendon was removed. The retro-calcaneal bursa was also removed. Once debridement was complete, it was determined that an FHL tendon transfer would not be required, as <50% of the achilles tendon required debridement. At this point attention was turned to the Lucretia's deformity. Using a small saw, the deformity was removed. The remaining prominent areas were then divided with a rongeur. After palpation, the calcaneus did not appear to have any further prominence. Attention was then turned to reattaching the Achilles tendon. Using the speed bridge package from [employer], 2 anchors were placed slightly more proximal than the Achilles tendon insertion. The fiber tape was then brought up through the medial and lateral portions of the tendon. 2 swivel locks were then placed in line with the previous anchors at the level of the distal insertion of the Achilles tendon. The fiber wires were then placed into the bone using swivel lock, and a cross pattern. The tendon was in good continuity. The central split was then repaired with 2-0 fiber wire. The tourniquet was then released. The wounds were copiously irrigated. The subcutaneous tissue closed with 2-0 monocryl and the tourniquet was released. The skin incision was closed with 3-0 nylon. The wound was dressed with adaptic, gauze, ABD, and webril. He was placed into a well-padded short-leg splint. He was awoken from anesthesia without difficulty, and taken to PACU in stable condition. Post-Operative Course: He will be Non Weight Bearing for 6 weeks. Week 1 post-op: Splint off, XRs, incision check, placement into short-leg cast Week 3 post-op: Cast off, sutures out, placement into tall boot with two heel lifts (Styrofoam). Start WBAT. Wean lifts once fully WB. Week 6 post op: Wean boot, start PT. SIGNATURE: Carmen Rojas MD PATIENT NAME: Aston Napoles DATE: February 01, 2024 TIME: 1:31 PM [facility] 01-30-2024 [facility] Office Visit ([facility] ) ASTON NAPOLES ([id number]) 1975 M Date Time Provider Department 01/30/24 5:20 PM FRANCISCO JAVIER OSORIO [facility] During your visit today, we recorded the following information about you: Temperature Pulse Respiration Blood pressure 97.9 degrees 100/minute 16/minute 125/76 Weight 99.2 kg Francisco Javier Osorio MD 01/30/2024 6:42 PM Signed This note was created using [employer]. Subjective Aston Napoles is a 48 year old male. He was dealing with health issues. He was scheduled for Achilles tendon surgery. He was being worked up for hearing loss. He was diagnosed with keratoconus. Urology was evaluating bladder abnormality. His anxiety and depression were stable. Review of Systems Constitutional: Negative for fatigue and fever. Respiratory: Negative for cough and shortness of breath. Cardiovascular: Negative for chest pain and palpitations. Gastrointestinal: Negative for abdominal pain. Neurological: Negative for dizziness and headaches. 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 Physical Exam Constitutional: Appearance: Normal appearance. HENT: Head: Normocephalic. Eyes: Conjunctiva/sclera: Conjunctivae normal. Cardiovascular: Rate and Rhythm: Normal rate and regular rhythm. Heart sounds: No murmur heard. No gallop. Pulmonary: Breath sounds: Normal breath sounds. Musculoskeletal: Right lower leg: No edema. Left lower leg: No edema. Neurological: Mental Status: He is alert. Assessment and Plan 1. Anxiety and depression - ICD9: 300.00, 311, ICD10: F41.9, F32.A (primary diagnosis) - Continue medications. 2. Achilles tendinitis of left lower extremity - ICD9: 726.71, ICD10: M76.62 - for surgery. 3. Hyperlipidemia, unspecified hyperlipidemia type - ICD9: 272.4, ICD10: E78.5 - Control undetermined, due for labs next year. - Counseled on healthy diet and regular exercise - COMPREHENSIVE METABOLIC PANEL - LIPID PANEL BASIC Francisco Javier Osorio MD Allergies As of Date: 01/30/2024 Noted Allergy Reaction COMPAZINE (PROCHLORPERAZINE EDISY*06/03/2017 14 - Other: See Comments Comments: Jittery feeling Date Reviewed: 01/30/2024 Reviewed by: Madina Grijalva MA - Fully Assessed Primary Visit Diagnosis:Anxiety and depression [F41.9, F32.A] Other Visit Diagnoses:Achilles tendinitis of left lower extremity [M76.62] Hyperlipidemia, unspecified hyperlipidemia type [E78.5] Order(s):COMPREHENSIVE METABOLIC PANEL [SQCMP] Order #: [id number] FUTURE LIPID PANEL BASIC [SQLIPB] Order #: [id number] FUTURE Prescriptions as of 01/30/2024 - iv contrast (will be provided with radiology test) CT Urogram WO/W Inject, intravenously, once for 1 dose.No IV access, insert saline lock prior to the beginning of sedation, infusion, injection of imaging exam. Discontinue saline lock post exam. If Pt. has a central line or IVAD, may access for administration according to line specific nursing protocol. Once exam is complete flush line and de-access according to line specific nursing protocol in the CT contrast administration guidelines link. - triamcinolone acetonide (KENALOG) 0.1 % cream Apply 1 application to affected area two times a day. - ciprofloxacin-dexAMETHasone (CIPRODEX) 0.3-0.1 % otic suspension Use 4 Drops in the ears two times a day. 4 drops to affected ear twice daily for 7-10 days. - clotrimazole-betamethasone (LOTRISONE) cream Apply to affected area two times a day as needed. - fluticasone (FLONASE) 50 mcg/actuation nasal spray Use 2 Sprays in each nostril once daily. Rinse mouth after use. - aspirin/acetaminophen/caffe ine (EXCEDRIN MIGRAINE ORAL) Take 2 tablets by mouth every 8 hours as needed. - naproxen sodium (ALEVE ORAL) Take 1 tablet by mouth every 8 hours as needed. - DULoxetine (CYMBALTA) 30 mg capsule Take 1 capsule by mouth once daily. - albuterol HFA (VENTOLIN HFA) 90 mcg/actuation inhaler Inhale 2 Puffs as instructed every 4 hours as needed for wheezing/shortness of breath. - COMPOUNDED PRESCRIPTION Increase CPAP setting to 13 cm H2O pressure. Dx: KEYLA - CPAP Initiate CPAP @ 11 cm of water with humidification. Mask (per patient preference) optional chin strap (if indicated) , filters, tubing, humidifier and lifetime supplies. - CETIRIZINE HCL (ZYRTEC ORAL) Take 1 tablet by mouth two times a day. 10 MG Problem List As Of Date 01/30/2024 Noted Resolved Anxiety and depressio (more content not included)... Normal [facility] 25(OH)D3 SerPl-mCncon 2023 25-hydroxyvitamin D3 [Mass/Vol] 36.9 ng/mL Normal 31.0-80.0 [facility] Comment on above: Order Comment: Speci men Type: BLOOD SPECIMENOrdering Facility: [facility] Address: [address] [place] [address] [place] [address] Performed By: #### 1 [id number] ####[facility] LABCLIA [id number] [facility] [address] [place] CNOVon 01-23-2024 CNOV Office Visit (UROLWS ) ASTON NAPOLES ([id number]) 1975 M Date Time Provider Department 01/23/24 9:00 AM JONATHAN FOSTER During your visit today, we recorded the following information about you: Temperature Pulse Respiration Blood pressure 97 degrees 96/minute 14/minute 140/88 Weight Height 100.7 kg 1.723 m Jonathan Foster APRN.CARINA, DNP 01/23/2024 1:06 PM Signed [facility] MALE PATIENT - HISTORY AND PHYSICAL EXAMINATION PATIENT: Aston Napoles (48 year old) PCP: Francisco Javier Osorio MD CHIEF COMPLAINT: Bladder thickening HISTORY OF PRESENT ILLNESS: 48 year old year old male with Bladder thickening on CT Seen in January of 2023 for abd pain by GS. CT of Abd completed showing Bladder thickening. Presents for follow up. Past med Hx: DENNIS, MDD, KEYLA, Seizure d/o, HLD, Vit D def. C/o urgency symptoms for the past year. Occasional leakage. No smoking hx. PRESENTING HISTORY: Hematuria: none Obstructive voiding symptoms: weak stream and incomplete emptying. Irritative voiding symptoms: frequency and urgency Urinary retention: no Urinary incontinence: no Urinary tract infection: no No family hx of Prostate Cancer Patient Entered Questionnaires: INTERNATIONAL PROSTATE SYMPTOM SCORE (I-PSS) 1)INCOMPLETE EMPTYING Over the past month, how often have you had a sensation of not emptying your bladder completely after you finished urinating? SCORE: 4- More than half the time 2)FREQUENCY Over the past month, how often have you had to urinate again less than two hours after you finished urinating? SCORE: 4- More than half the time 3)INTERMITTENCY Over the past month, how often have you found you stopped and started again several times when you urinated? SCORE: 5- Almost always 4)URGENCY Over the past month, how often have you found it difficult to postpone urination? SCORE: 3- About half the time 5)WEAK STREAM Over the past month, how often have you had a weak stream? SCORE: 4- More than half the time 6)STRAINING Over the past month, how often have you had to push or strain to begin urination SCORE: 0- Not at all 7)NOCTURIA Over the past month, how many times did you most typically get up to urinate from the time you went to bed at night until the time you get up in the morning? SCORE:0 TOTAL I-PSS SCORE: 20 QUALITY OF LIFE DUE TO URINARY SYMPTOMS If you were to spend the rest of yur life with your urinary condition just the way it is now, how would you feel about that? 5- Unhappy PROMIS Global Health 06/24/2021 10/26/2021 10/30/2023 PROMIS Global Health Scale Physical Health Percentile 41 53 7 Mental Health Percentile 34 73 34 Percentiles provide an indication of how the patient's score ranks in relation to the general population. Higher percentile rankings indicate better function/quality of life. 50th percentile is the average of the general population and indicates half of respondents had a worse score. 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 02/04/2019 Seasonal allergic rhinitis 02/27/2018 Seizure disorder (HCC) 2001 twice initially, then none on medication for 9 years, weaned off successfully Somnolence, daytime 02/27/2018 PAST SURGICAL HISTORY Procedure Laterality Date APPENDECTOMY 1998 COLONOSCOPY SCREENING N/A 02/17/2023 future colonoscopies need MAC EXCISION PILONIDAL CYST/SINUS SIMPLE INGUINAL HERNIA REPAIR HX Bilateral 1993 1992 and 1993 each side PAST SURGICAL HISTORY OF 08/10/2023 DESTRUCTION OF ANAL CONDYLOMA SKIN BIOPSY HX TONSILLECTOMY HX 1979 Social History Tobacco Use Smoking status: Never Smokeless tobacco: Never Vaping Use Vaping status: Never Used Substance Use Topics Alcohol use: Yes Comment: once a month Drug use: Never FAMILY HISTORY Problem Relation Age of Onset Hypertension Mother Heart Attack Father 60 sudden Hypertension Father No Known Problems Sister No Known Problems Brother Colon Cancer Maternal Grandfather 72 Heart disease Paternal Grandmother Heart disease Paternal Grandfather MEDICATIONS: Current Outpatient Medications Medication Sig predniSONE (DELTASONE) 20 mg tablet Take 2 tablets by mouth once daily for 7 days. triamcinolone acetonide (KENALOG) 0.1 % cream Apply 1 application to affected area two times a day. ciprofloxacin-dexAMETHasone (CIPRODEX) 0.3-0.1 % otic suspension Use 4 Drops in the ears two times a day. 4 drops to affected ear twice daily for 7-10 days. clotrimazole-betamethasone (LOTRISONE) cream Apply to affected area two times a day as needed. fluticasone (FLONASE) 50 mcg/actuation nasal spray Use 2 Sprays in each nostril (more content not included)... Normal [facility] PSA/PROSTATE SPECIFIC ANTIGE N SCREENINGon 01-23-2024 Prostate specific Ag [Mass/Vol] 0.26 ng/mL Normal <2.60 [facility] Comment on above: Order Comment: Speci men Type: BLOOD SPECIMENOrdering Facility: [facility] Address: [address] [place] [address] Result Comment: Yessica carpenter PSA test methodology used is the Electrochemiluminescence Immunoassay by [employer]. Total PSA values by differing methodologies cannot be interchanged. Performed By: #### P SAS1 ####[facility] LABCLIA [id number] [place] [address] [place] UA DIP, URINE (POC)on 2023 BILIRUBIN UA (POCT) Negative Negative [facility] CLARITY UA (POCT) Slightly Cloudy [facility] COLOR UA (POCT) Dark yellow [facility] GLUCOSE UA (POCT) Negative Negative mg/dL [facility] Hemoglobin Ql (U) Negative Negative [facility] Interpretation and review of laboratory results Abnormal [facility] KETONE UA (POCT) Negative Negative mg/dL [facility] LEUKOCYTES UA (POCT) Negative Negative [facility] NITRITE UA (POCT) Negative Negative [facility] PH UA (POCT) 6.0 4.5 - 8.[address] [facility] Protein Ql (U) 30 mg/dL Abnormal Negative [facility] SPECIFIC GRAVITY UA (POCT) >=1.030 1.005 - 1.[address] [facility] UROBILINOGEN UA (POCT) 1.0 Normal E.U./dL [facility] Location:[facility], [address], [place], [place], [id number] [place] [address] [address] OF [address]ARE [facility] HISTORY PHYSICALon HISTORY PHYSICAL HNO ID: [id number] Author: GAETANO AMBROCIO PA-C Service: ? Author Type: Physician Professional Skateboarder Type: H&P Filed: 01/20/2024 08:08 Note Text: PREANESTHESIA CONSULT CLINIC TELEHEALTH VISIT Patient has been identified by name and date of : Yes This is a virtual visit using OnTheList Video Visit. It require patient-provider interaction for the medical decision making as documented below. Reason for contact: PACC visit Accompanied by: Self This is a virtual visit using Virtual Visit (Audio/Visual) I have discussed the nature of this visit with the patient which will occur via Distance Health (Phone, Virtual Visit) and he agrees to proceed with this interaction . It required patient-provider interaction for the medical decision making as documented below. I have communicated my name and active licensure. The patient's identity and physical location were verified at the time of this visit. Either the patient or their legal sales representative womens health has been informed of the risks and benefits of and alternatives to treatment through a remote evaluation and consents to proceed with the evaluation remotely. Scheduled Surgery: Left - REPAIR ACHILLES TENDON SECONDARY Left - OSTECTOMY CALCANEUS Left - RELEASE TENDON EXTREMITY LOWER Left - TRANSFER TENDON EXTREMITY LOWER - (Possible) Subjective CHIEF COMPLAINT: Pre op exam HPI: Patient is a 48 year old male here for PACC. Patient has been seen and evaluated by orthopedic surgeon due to left foot pain. Reports left achilles pain beginning in 2019 with no known injury. Has been found to have achilles tendinitis left. Patient has been recommended for procedure listed above; electing to proceed. 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 02/04/2019 Seasonal allergic rhinitis 02/27/2018 Seizure disorder (HCC) 2001 twice initially, then none on medication for 9 years, weaned off successfully Somnolence, daytime 02/27/2018 PAST SURGICAL HISTORY Procedure Laterality Date APPENDECTOMY 1998 COLONOSCOPY SCREENING N/A 02/17/2023 future colonoscopies need MAC EXCISION PILONIDAL CYST/SINUS SIMPLE INGUINAL HERNIA REPAIR HX Bilateral 1993 1992 and 1993 each side PAST SURGICAL HISTORY OF 08/10/2023 DESTRUCTION OF ANAL CONDYLOMA SKIN BIOPSY HX TONSILLECTOMY HX 1979 FAMILY HISTORY Problem Relation Age of Onset Hypertension Mother Heart Attack Father 60 sudden Hypertension Father No Known Problems Sister No Known Problems Brother Colon Cancer Maternal Grandfather 72 Heart disease Paternal Grandmother Heart disease Paternal Grandfather Social History Tobacco Use Smoking status: Never Smokeless tobacco: Never Vaping Use Vaping status: Never Used Substance Use Topics Alcohol use: Yes Comment: once a month Drug use: No ALLERGIES Allergen Reactions Compazine [Prochlor* Other: See Comments Jittery feeling MEDICATIONS: Current Outpatient Medications Medication Sig predniSONE (DELTASONE) 20 mg tablet Take 2 tablets by mouth once daily for 7 days. triamcinolone acetonide (KENALOG) 0.1 % cream Apply 1 application to affected area two times a day. ciprofloxacin-dexAMETHasone (CIPRODEX) 0.3-0.1 % otic suspension Use 4 Drops in the ears two times a day. 4 drops to affected ear twice daily for 7-10 days. iv contrast (will be provided with radiology test) MRI Brain Inject, intravenously, once for 1 dose.No IV access, insert saline lock prior to beginning of sedation, infusion, injection of imaging exam.Discontinue saline lock post exam. If Pt. has a central line or IVAD, may access for administration according to line specific nursing protocol.Once exam is complete flush line and de-access according to line specific nursing protocol in the MR contrast administration guidelines link clotrimazole-betamethasone (LOTRISONE) cream Apply to affected area two times a day as needed. fluticasone (FLONASE) 50 mcg/actuation nasal spray Use 2 Sprays in each nostril once daily. Rinse mouth after use. aspirin/acetaminophen/caffe ine (EXCEDRIN MIGRAINE ORAL) Take by mouth. naproxen sodium (ALEVE ORAL) Take by mouth. DULoxetine (CYMBALTA) 30 mg capsule Take 1 capsule by mouth once daily. albuterol HFA (VENTOLIN HFA) 90 mcg/actuation inhaler Inhale 2 Puffs as instructed every 4 hours as needed for wheezing/shortness of breath. COMPOUNDED PRESCRIPTION Increase CPAP setting to 13 cm H2O pressure. Dx: KEYLA CPAP Initiate (more content not included)... Normal [facility] CNOVon 01-19-2024 CNOV Office Visit (OTFGFL ) DONYASTON Ramos ([id number]) 1975 [place] Date Time Provider Department 01/19/24 2:00 PM [facility] During your visit today, we recorded the following information about you: German Woodward AUD 01/19/2024 3:[address] [facility] January 19, 2024 Aston Napoles was seen today for audiometric testing as part of his appointment today with Latisha Birmingham PA-C. The patient reports feeling pressure in his left ear and reports a family history of hearing loss which he is concerned he may also have hearing loss. PHYSICAL EXAMINATION: Otoscopic inspection was completed by Latisha Birmingham today TEST RESULTS: Audiometric testing revealed an asymmetrical hearing loss: pure tone thresholds within normal limits in the right ear and a mild sensorineural hearing loss in the left ear at 4000Hz and above. Speech electrocardiograph technician thresholds agree with pure tone thresholds bilaterally. Speech discrimination testing revealed excellent speech understanding ability bilaterally. Tympanometry revealed hypermobile tympanic membranes with normal middle ear pressure bilaterally. AUDIOGRAM MAY BE VIEWED IN PROCEDURES RECOMMENDATIONS/PLAN: Latisha Birmingham will review audiometric test results with the patient. GISEL Fuller Referring Provider: EDEL PERDUE [[id number]] Allergies As of Date: 01/19/2024 Noted Allergy Reaction COMPAZINE (PROCHLORPERAZINE EDISY*06/03/2017 14 - Other: See Comments Comments: Jittery feeling Date Reviewed: 01/19/2024 Reviewed by: Latisha Birmingham PA-C - Fully Assessed Reason for Visit: Pressure In Ear(s) [1122] Primary Visit Diagnosis:Asymmetrical sensorineural hearing loss [H90.3] Order(s):HEARING TEST/AUDIOGRAM [[id number]] Order #: [id number]: 1 Prescriptions as of 01/19/2024 - predniSONE (DELTASONE) 20 mg tablet Take 2 tablets by mouth once daily for 7 days. - triamcinolone acetonide (KENALOG) 0.1 % cream Apply 1 application to affected area two times a day. - ciprofloxacin-dexAMETHasone (CIPRODEX) 0.3-0.1 % otic suspension Use 4 Drops in the ears two times a day. 4 drops to affected ear twice daily for 7-10 days. - iv contrast (will be provided with radiology test) MRI Brain Inject, intravenously, once for 1 dose.No IV access, insert saline lock prior to beginning of sedation, infusion, injection of imaging exam.Discontinue saline lock post exam. If Pt. has a central line or IVAD, may access for administration according to line specific nursing protocol.Once exam is complete flush line and de-access according to line specific nursing protocol in the MR contrast administration guidelines link - clotrimazole-betamethasone (LOTRISONE) cream Apply to affected area two times a day as needed. - fluticasone (FLONASE) 50 mcg/actuation nasal spray Use 2 Sprays in each nostril once daily. Rinse mouth after use. - aspirin/acetaminophen/caffe ine (EXCEDRIN MIGRAINE ORAL) Take by mouth. - naproxen sodium (ALEVE ORAL) Take by mouth. - DULoxetine (CYMBALTA) 30 mg capsule Take 1 capsule by mouth once daily. - albuterol HFA (VENTOLIN HFA) 90 mcg/actuation inhaler Inhale 2 Puffs as instructed every 4 hours as needed for wheezing/shortness of breath. - COMPOUNDED PRESCRIPTION Increase CPAP setting to 13 cm H2O pressure. Dx: KEYLA - CPAP Initiate CPAP @ 11 cm of water with humidification. Mask (per patient preference) optional chin strap (if indicated) , filters, tubing, humidifier and lifetime supplies. - CETIRIZINE HCL (ZYRTEC ORAL) Take 1 tablet by mouth two times a day. Problem List As Of Date 01/19/2024 Noted Resolved Anxiety and depression [F41.9, F32.A] 02/27/2018 Somnolence, daytime [R40.0] 02/27/2018 09/28/2018 Obesity, Class I, BMI 30-34.9 [E66.811] 02/27/2018 Seasonal allergic rhinitis [J30.2] 02/27/2018 Elevated blood pressure reading [R03.0] 02/27/2018 09/28/2018 KEYLA (obstructive sleep apnea) [G47.33] 04/13/2018 Recurrent type 2 herpes simplex of other site [*02/04/2019 Abdominal pain, left lower quadrant [R10.32] 02/17/2023 05/02/2023 Rectal bleeding [K62.5] 02/17/2023 05/02/2023 HLD (hyperlipidemia) [E78.5] 08/04/2023 Psoriasis [L40.9] 08/04/2023 Vitamin D deficiency [E55.9] 11/02/2023 Chronic heel pain, left [M79.672, G89.29] 11/16/2023 Pre-op testing [Z01.818] 12/19/2023 Achilles tendinitis of left lower extremity [M7*12/19/2023 Encounter Status:Closed by GERMAN WOODWARD on 01/19/24 [facility] CNOV Office Visit (OTFGFL ) ASTON NAPOLES ([id number]) 1975 M Date Time Provider Department 01/19/24 1:30 PM LATISHA BIRMINGHAM [facility] During your visit today, we recorded the following information about you: Pulse Respiration Blood pressure Weight 96/minute 16/minute 141/93 100.2 kg Height 1.791 m Latisha Birmingham PA-C 01/19/2024 5:06 PM Signed HPI: Aston Napoles is a 48 year old male. CC: Patient presents with: Ear Problem: Reoccurring left ear infections and pressure Patient presents today complaining of left ear feeling constantly clogged with pressure, and having recurring ear infections. Feels he has left sided hearing loss. Right side has a stabbing pain currently. Swims a lot finds he gets infections after. Denies hearing loss. Denies any ringing, buzzing, humming. Denies dizziness. Denies any prior known ear disorders or surgeries. Mom and grandpa have left side hearing loss. Takes flonase, zyrtec regularly. Uses netipot as needed. I reviewed the allergies, medications, problem list, PMH/PSH, FmHx and SocHx as documented per EMR. Physical Exam BP 141/93 Pulse 96 Resp 16 Ht 179.1 cm (5' 10.5 ) Wt 100.2 kg (221 lb) BMI 31.26 kg/m? General: Appears to be in no acute distress, normal affect Head/Face: Facial muscles appear to be functioning normally. TMJs move freely, without popping or clicking, are nontender. Neck: There are no palpable salivary gland masses, no thryoid mass or thyromegaly, no neck masses or lymphadenopathy. Eyes: Extraocular movements appear intact. Ears: Right Ear: External ear is without lesions. Conchal bowl is hypertrophic, erythematous with dry flaky skin. EAC is erythematous, free of purulence or debris. Visualized TM is eczematous/vascular and with normal landmarks, not retracted or bulging. TM is mobile on pneumatic otoscopy. Left Ear: External ear is without lesions. Conchal bowl is hypertrophic, erythematous with dry flaky skin. EAC is without inflammatory changes, free of debris. Visualized TM is not inflamed and with normal landmarks, not retracted or bulging. TM is mobile on pneumatic otoscopy. Nose: External nose is without lesions or deformity. Nasal mucosa appears healthy and without obvious lesions or masses on nasal speculum exam. The septum is nonobstructive. The inferior turbinates are not hypertrophic. Oral Cavity/Oropharynx: The lips are without lesions. The tongue and floor of the mouth are without lesions. The soft palate and posterior pharynx are without lesions. Gingival mucosa is without lesions. Tonsils are not enlarged and without lesions. Data 12/26/18 audio and tympanometry within normal limits Assessment AND Plan I counseled the patient about the differential diagnosis, natural course, treatment options and answered their questions for: Diagnoses and all orders for this visit: Sensorineural hearing loss (SNHL) of left ear with unrestricted hearing of right ear Dysfunction of both eustachian tubes - MRI BRAIN WO/W IVCON; Future - predniSONE (DELTASONE) 20 mg tablet; Take 2 tablets by mouth once daily for 7 days. Physical exam and tympanometry w/o signs of acute infection, OME/fluid or TM retraction. Audiogram revealed mild to moderate left-sided SNHL at 4 and 8K, with normal hearing on the right. 2019 audio was wnml. Patient advised MRI to rule-out mass/lesion. Patient otherwise advised discomfort likely due to intermittent ETD. Is advised to use nasal steroid spray daily, oral anti-histamine if needed, periodic auto-insufflation. May use pseudoephedrine and/or oxymetazoline spray if severe, for three days max. Advised to treat as directed and monitor. Acute otitis externa of right ear, unspecified type Chronic eczematous otitis externa of both ears - triamcinolone acetonide (KENALOG) 0.1 % cream; Apply 1 application to affected area two times a day. - ciprofloxacin-dexAMETHasone (CIPRODEX) 0.3-0.1 % otic suspension; Use 4 Drops in the ears two times a day. 4 drops to affected ear twice daily for 7-10 days. Exam revealed chronic eczematous changes of lateral external ears, canal inflammation present at right. Advised to treat right ear with steroid/abx drops for 2 weeks, w/ steroid topical bilaterally BID. Then to use steroid topical 2-3 times a week for maintenance as is often a recurring/chronic condition. Is advised to avoid scratching to avoid infection. Advised to call if symptoms worsening or not responding to treatment as prescribed. Followup Return in about 1 month (around 02/19/2024). Latisha Birmingham PA-C Time: 35 minutes: Time includes preparation, obtaining/reviewing history, exam, interpreting results, ordering, counseling/education, referring/communicating and documentation. -Created using voice recognition software, some errors may have occurred. Corrections may (more content not included)... Normal [facility] HEARING TEST/AUDIOGRAMon TEST RESULTS: Audiom etric testing revealed an asymmetrical hearing loss: pure tone thresholds within normal limits in the right ear and a mild sensorineural hearing loss in the left ear at 4000Hz and above. Speech electrocardiograph technician thresholds agree with pure tone thresholds bilaterally. Speech discrimination testing revealed excellent speech understanding ability bilaterally. Tympanometry revealed hypermobile tympanic membranes with normal middle ear pressure bilaterally. [facility] 01-11-2024 CNPN Telephone (UROLWS) ASTON NAPOLES ([id number]) 1975 M Date Time Provider Department 01/11/24 JONATHAN FOSTER During your visit today, we recorded the following information about you: Essie Anglin LPN 01/11/2024 9:40 AM Signed Called patient. Patient answered phone but call dropped. Patient has appointment 01/23/2024- has patient been seen elsewhere for urological issues? In notes patient to be seen for thickening of bladder wall, leakage- where was diagnosis made? [facility] [facility] [place] 01/12/2024 8:[address] in Jan 2023 showed thickening of bladder wall. Unable to reach pt and not seeing any other work up. Janes Guerrero MA Allergies As of Date: 01/11/2024 Noted Allergy Reaction COMPAZINE (PROCHLORPERAZINE EDISY*06/03/2017 14 - Other: See Comments Comments: Jittery feeling Date Reviewed: 01/09/2024 Reviewed by: Amy Huizar MA - Fully Assessed Reason for Visit: Appointment [186] Prescriptions as of 01/12/2024 - clotrimazole-betamethasone (LOTRISONE) cream Apply to affected area two times a day as needed. - fluticasone (FLONASE) 50 mcg/actuation nasal spray Use 2 Sprays in each nostril once daily. Rinse mouth after use. - aspirin/acetaminophen/caffe ine (EXCEDRIN MIGRAINE ORAL) Take by mouth. - naproxen sodium (ALEVE ORAL) Take by mouth. - DULoxetine (CYMBALTA) 30 mg capsule Take 1 capsule by mouth once daily. - albuterol HFA (VENTOLIN HFA) 90 mcg/actuation inhaler Inhale 2 Puffs as instructed every 4 hours as needed for wheezing/shortness of breath. - COMPOUNDED PRESCRIPTION Increase CPAP setting to 13 cm H2O pressure. Dx: KEYLA - CPAP Initiate CPAP @ 11 cm of water with humidification. Mask (per patient preference) optional chin strap (if indicated) , filters, tubing, humidifier and lifetime supplies. - CETIRIZINE HCL (ZYRTEC ORAL) Take 1 tablet by mouth two times a day. Problem List As Of Date 01/11/2024 Noted Resolved Anxiety and depression [F41.9, F32.A] 02/27/2018 Somnolence, daytime [R40.0] 02/27/2018 09/28/2018 Obesity, Class I, BMI 30-34.9 [E66.811] 02/27/2018 Seasonal allergic rhinitis [J30.2] 02/27/2018 Elevated blood pressure reading [R03.0] 02/27/2018 09/28/2018 KEYLA (obstructive sleep apnea) [G47.33] 04/13/2018 Recurrent type 2 herpes simplex of other site [*02/04/2019 Abdominal pain, left lower quadrant [R10.32] 02/17/2023 05/02/2023 Rectal bleeding [K62.5] 02/17/2023 05/02/2023 HLD (hyperlipidemia) [E78.5] 08/04/2023 Psoriasis [L40.9] 08/04/2023 Vitamin D deficiency [E55.9] 11/02/2023 Chronic heel pain, left [M79.672, G89.29] 11/16/2023 Pre-op testing [Z01.818] 12/19/2023 Achilles tendinitis of left lower extremity [M7*12/19/2023 Encounter Status:Closed by JANES GUERRERO on 01/12/24 [facility] CNOVon 01-09-2024 CNOV Office Visit (GENSWS ) ASTON NAPOLES ([id number]) 1975 M Date Time Provider Department 01/09/24 3:15 PM JONATHAN NIELSEN During your visit today, we recorded the following information about you: Temperature Pulse Blood pressure Weight 97.5 degrees 95/minute 118/87 100.3 kg Height 1.791 m Jonathan Nielsen MD 01/17/2024 2:11 PM Signed Patient scheduled this appointment but he does not need a colonoscopy at this time he will be coming back in February. No charge for today's visit Referring Provider: SELF [200] Allergies As of Date: 01/09/2024 Noted Allergy Reaction COMPAZINE (PROCHLORPERAZINE EDISY*06/03/2017 14 - Other: See Comments Comments: Jittery feeling Date Reviewed: 01/09/2024 Reviewed by: Amy Huizar MA - Fully Assessed Reason for Visit: Consult [173] Cmt: Colonoscopy Primary Visit Diagnosis:Rectal bleeding [K62.5] Prescriptions as of 01/17/2024 - clotrimazole-betamethasone (LOTRISONE) cream Apply to affected area two times a day as needed. - fluticasone (FLONASE) 50 mcg/actuation nasal spray Use 2 Sprays in each nostril once daily. Rinse mouth after use. - aspirin/acetaminophen/caffe ine (EXCEDRIN MIGRAINE ORAL) Take by mouth. - naproxen sodium (ALEVE ORAL) Take by mouth. - DULoxetine (CYMBALTA) 30 mg capsule Take 1 capsule by mouth once daily. - albuterol HFA (VENTOLIN HFA) 90 mcg/actuation inhaler Inhale 2 Puffs as instructed every 4 hours as needed for wheezing/shortness of breath. - COMPOUNDED PRESCRIPTION Increase CPAP setting to 13 cm H2O pressure. Dx: KEYLA - CPAP Initiate CPAP @ 11 cm of water with humidification. Mask (per patient preference) optional chin strap (if indicated) , filters, tubing, humidifier and lifetime supplies. - CETIRIZINE HCL (ZYRTEC ORAL) Take 1 tablet by mouth two times a day. 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 [*02/04/2019 Abdominal pain, left lower quadrant [R10.32] 02/17/2023 05/02/2023 Rectal bleeding [K62.5] 02/17/2023 05/02/2023 HLD (hyperlipidemia) [E78.5] 08/04/2023 Psoriasis [L40.9] 08/04/2023 Vitamin D deficiency [E55.9] 11/02/2023 Chronic heel pain, left [M79.672, G89.29] 11/16/2023 Pre-op testing [Z01.818] 12/19/2023 Achilles tendinitis of left lower extremity [M7*12/19/2023 Encounter Status:Closed by JONATHAN NIELSEN on 01/17/24 [facility] Lul 12-26-2023 CNPN Telephone (ORTHIN) ASTON NAPOLES ([id number]) 1975 M Date Time Provider Department 9/16/24 CARMEN ROJAS During your visit today, we recorded the following information about you: Britta Tanner 12/26/2023 10:45 AM Signed Patient called and cancelled physical therapy session at [facility] PT scheduled for 01/18/24 due to conflict with traveling. Patient states he has already completed crutches training during last session on 12/19/23. Patient is wanting clarification on future appointments to be scheduled (prior or post surgery). Active referral# [id number] is showing 20 sessions with 4 completed. Please contact patient to advise. Pato Lucas, DANNY 12/26/2023 11:25 AM Signed called back pt but mailbox is full. I will send him mychart He just needs to PACC appt prior to surgery Allergies As of Date: 12/26/2023 Noted Allergy Reaction COMPAZINE (PROCHLORPERAZINE EDISY*06/03/2017 14 - Other: See Comments Comments: Jittery feeling Date Reviewed: 12/19/2023 Reviewed by: Lorenzo Malone APRN.SENIOR CONTRACT SPECIALIST - Fully Assessed Reason for Visit: Patient Question [3217] Appointment [186] Prescriptions as of 12/26/2023 - amoxicillin (AMOXIL) 875 mg tablet Take 1 tablet by mouth two times a day for 7 days. - clotrimazole-betamethasone (LOTRISONE) cream Apply to affected area two times a day as needed. - fluticasone (FLONASE) 50 mcg/actuation nasal spray Use 2 Sprays in each nostril once daily. Rinse mouth after use. - aspirin/acetaminophen/caffe ine (EXCEDRIN MIGRAINE ORAL) Take by mouth. - naproxen sodium (ALEVE ORAL) Take by mouth. - DULoxetine (CYMBALTA) 30 mg capsule Take 1 capsule by mouth once daily. - albuterol HFA (VENTOLIN HFA) 90 mcg/actuation inhaler Inhale 2 Puffs as instructed every 4 hours as needed for wheezing/shortness of breath. - COMPOUNDED PRESCRIPTION Increase CPAP setting to 13 cm H2O pressure. Dx: KEYLA - CPAP Initiate CPAP @ 11 cm of water with humidification. Mask (per patient preference) optional chin strap (if indicated) , filters, tubing, humidifier and lifetime supplies. - CETIRIZINE HCL (ZYRTEC ORAL) Take 1 tablet by mouth two times a day. 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 [*02/04/2019 Abdominal pain, left lower quadrant [R10.32] 02/17/2023 05/02/2023 Rectal bleeding [K62.5] 02/17/2023 05/02/2023 HLD (hyperlipidemia) [E78.5] 08/04/2023 Psoriasis [L40.9] 08/04/2023 Vitamin D deficiency [E55.9] 11/02/2023 Chronic heel pain, left [M79.672, G89.29] 11/16/2023 Pre-op testing [Z01.818] 12/19/2023 Achilles tendinitis of left lower extremity [M7*12/19/2023 Encounter Status:Closed by PATO LUCAS on 12/26/23 Normal [facility] CNOVon 12-19-2023 CNOV Office Visit (UCTR ) ASTON NAPOLES ([id number]) 1975 M Date Time Provider Department 12/19/23 9:30 AM LORENZO MALONE [facility] During your visit today, we recorded the following information about you: Temperature Pulse Respiration Blood pressure 98.4 degrees 76/minute 16/minute 124/78 Weight 100.2 kg [email or web address] 12/19/2023 9:47 AM Signed Subjective HPI Nontoxic-appearing male presents urgent care chief complaint left ear pain muffled hearing. Duration of symptoms 3 days. Associated symptoms left ear pain muffled hearing body aches chills fever rhinorrhea sore throat. This bothersome symptom today is ear pain. History of ear infections. No OTC medication use today. No known sick contacts. Denies any productive cough chest pain shortness of breath pleuritic pain hemoptysis nausea vomiting abdominal pain change in bowel or bladder habits. Past medical history prescription medication use and allergies reviewed. 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 02/27/2018: Seasonal allergic rhinitis 2001: Seizure disorder (HCC) Comment: twice initially, then none on medication for 9 years, weaned off successfully 02/27/2018: Somnolence, daytime PAST SURGICAL HISTORY 1997: APPENDECTOMY 02/17/2023: COLONOSCOPY SCREENING; N/A Comment: future colonoscopies need MAC No date: EXCISION PILONIDAL CYST/SINUS SIMPLE 1993: INGUINAL HERNIA REPAIR HX; Bilateral Comment: 1992 and 1993 each side 08/10/2023: PAST SURGICAL HISTORY OF Comment: DESTRUCTION OF ANAL CONDYLOMA No date: SKIN BIOPSY HX 1979: TONSILLECTOMY HX ALLERGIES Compazine [Prochlorperazine Edisylate] MEDICATIONS clotrimazole-betamethasone (LOTRISONE) cream Apply to affected area two times a day as needed. fluticasone (FLONASE) 50 mcg/actuation nasal spray Use 2 Sprays in each nostril once daily. Rinse mouth after use. aspirin/acetaminophen/caffe ine (EXCEDRIN MIGRAINE ORAL) Take by mouth. naproxen sodium (ALEVE ORAL) Take by mouth. DULoxetine (CYMBALTA) 30 mg capsule Take 1 capsule by mouth once daily. albuterol HFA (VENTOLIN HFA) 90 mcg/actuation inhaler Inhale 2 Puffs as instructed every 4 hours as needed for wheezing/shortness of breath. COMPOUNDED PRESCRIPTION Increase CPAP setting to 13 cm H2O pressure. Dx: KEYLA CPAP Initiate CPAP @ 11 cm of water with humidification. Mask (per patient preference) optional chin strap (if indicated) , filters, tubing, humidifier and lifetime supplies. CETIRIZINE HCL (ZYRTEC ORAL) Take 1 tablet by mouth two times a day. FAMILY HISTORY Problem Relation Age of Onset Hypertension Mother Heart Attack Father 60 sudden Hypertension Father No Known Problems Sister No Known Problems Brother Colon Cancer Maternal Grandfather 72 Heart disease Paternal Grandmother Heart disease Paternal Grandfather Social History Tobacco Use Smoking status: Never Smokeless tobacco: Never Vaping Use Vaping status: Never Used Substance Use Topics Alcohol use: Yes Comment: once a month Drug use: No BP 124/78 Pulse 76 Temp 36.9 ?C (98.4 ?F) Resp 16 Wt 100.2 kg (220 lb 14.4 oz) SpO2 98% BMI 33.00 kg/m? Review of Systems Constitutional: Positive for chills, fever and malaise/fatigue. HENT: Positive for congestion, ear pain and sore throat. Negative for ear discharge and sinus pain. Eyes: Negative for blurred vision, pain, discharge and redness. Respiratory: Negative for cough, hemoptysis, sputum production, shortness of breath, wheezing and stridor. Cardiovascular: Negative for chest pain. Gastrointestinal: Negative for abdominal pain, diarrhea, nausea and vomiting. Musculoskeletal: Positive for myalgias. Skin: Negative for itching and rash. Neurological: Negative for dizziness and headaches. Objective Physical Exam Constitutional: General: He is not in acute distress. Appearance: He is not diaphoretic. HENT: Head: Normocephalic. Jaw: No trismus, tenderness, swelling or pain on movement. Right Ear: Tympanic membrane, ear canal and external ear normal. Left Ear: Ear canal and external ear normal. Decreased hearing noted. Tympanic membrane is erythematous. Mouth/Throat: Mouth: Mucous membranes are moist. Pharynx: Oropharynx is clear. Uvula midline. No pharyngeal swelling, oropharyngeal exudate, posterior oropharyngeal erythema or uvula swelling. Eyes: Conjunctiva/sclera: Conjunctivae normal. Pupils: Pupils are equal, round, and reactive to light. Cardiovascular: Rate and Rhythm: Normal rate and regular rhythm. Heart sounds: Normal heart soun (more content not included)... Normal [facility] CNTHERAPYon 12-19-2023 CNTHERAPY OT/PT/Speech Visit ( PTWS) ASTON NAPOLES ([id number]) 1975 M Date Time Provider Department 12/19/23 8:15 AM ENOC BYNUM PTWS Date Time Provider Department Center 12/19/2023 8:15 AM [id number], SEAN PTWS Anthony Appiah Reason for Visit: PT Re-eval [891] Primary Visit Diagnosis:Chronic heel pain, left [M79.672, G89.29] Other Visit Diagnoses:Achilles tendinitis of left lower extremity [M76.62] Pre-op testing [Z01.818] Allergies As of Date: 12/19/2023 Noted Allergy Reaction COMPAZINE (PROCHLORPERAZINE EDISY*06/03/2017 14 - Other: See Comments Comments: Jittery feeling Date Reviewed: 12/19/2023 Reviewed by: Nusrat Mccollum MA - Fully Assessed Prescriptions as of 12/19/2023 - clotrimazole-betamethasone (LOTRISONE) cream Apply to affected area two times a day as needed. - fluticasone (FLONASE) 50 mcg/actuation nasal spray Use 2 Sprays in each nostril once daily. Rinse mouth after use. - aspirin/acetaminophen/caffe ine (EXCEDRIN MIGRAINE ORAL) Take by mouth. - naproxen sodium (ALEVE ORAL) Take by mouth. - DULoxetine (CYMBALTA) 30 mg capsule Take 1 capsule by mouth once daily. - albuterol HFA (VENTOLIN HFA) 90 mcg/actuation inhaler Inhale 2 Puffs as instructed every 4 hours as needed for wheezing/shortness of breath. - COMPOUNDED PRESCRIPTION Increase CPAP setting to 13 cm H2O pressure. Dx: KEYLA - CPAP Initiate CPAP @ 11 cm of water with humidification. Mask (per patient preference) optional chin strap (if indicated) , filters, tubing, humidifier and lifetime supplies. - CETIRIZINE HCL (ZYRTEC ORAL) Take 1 tablet by mouth two times a day. Normal [facility] COVID AND INFLUENZA A/B AND RSV PCR, ROUTINEon 12-19-2023 SARS-CoV-2 (COVID-19) RNA EZRA+probe Ql (Unsp spec) SARS-COV-2 (AGENT OF COVID-19) RNA: Not detected INFLUENZA A RNA: Not detected INFLUENZA B RNA: Not detected RESPIRATORY SYNCYTIAL VIRUS (RSV) RNA: Not detected Normal [facility] Comment on above: Performed By: #### C VFLRS ####[facility] LABCLIA [id number] [address] CNTHERAPYon 12-13-2023 CNTHERAPY OT/PT/Speech Visit ( PTWS) ASTON NAPOLES ([id number]) 1975 M Date Time Provider Department 12/13/23 8:00 AM CA BROWN PTRAMANA Date Time Provider Department Center 12/13/2023 8:00 AM [id number], MARIAH PTRAMANA Appiah Reason for Visit: Physical Therapy [503] Primary Visit Diagnosis:Chronic heel pain, left [M79.672, G89.29] Allergies As of Date: 12/13/2023 Noted Allergy Reaction COMPAZINE (PROCHLORPERAZINE EDISY*06/03/2017 14 - Other: See Comments Comments: Jittery feeling Date Reviewed: 12/08/2023 Reviewed by: Reuben, [place], MA - Fully Assessed Prescriptions as of 12/13/2023 - clotrimazole-betamethasone (LOTRISONE) cream Apply to affected area two times a day as needed. - fluticasone (FLONASE) 50 mcg/actuation nasal spray Use 2 Sprays in each nostril once daily. Rinse mouth after use. - aspirin/acetaminophen/caffe ine (EXCEDRIN MIGRAINE ORAL) Take by mouth. - naproxen sodium (ALEVE ORAL) Take by mouth. - DULoxetine (CYMBALTA) 30 mg capsule Take 1 capsule by mouth once daily. - albuterol HFA (VENTOLIN HFA) 90 mcg/actuation inhaler Inhale 2 Puffs as instructed every 4 hours as needed for wheezing/shortness of breath. - COMPOUNDED PRESCRIPTION Increase CPAP setting to 13 cm H2O pressure. Dx: KEYLA - CPAP Initiate CPAP @ 11 cm of water with humidification. Mask (per patient preference) optional chin strap (if indicated) , filters, tubing, humidifier and lifetime supplies. - CETIRIZINE HCL (ZYRTEC ORAL) Take 1 tablet by mouth two times a day. Normal [facility] CNOVon 12-08-2023 CNOV Office Visit (ORTHIN ) ASTON NAPOLES ([id number]) 1975 M Date Time Provider Department 12/08/23 8:00 AM CARMEN ROJAS During your visit today, we recorded the following information about you: Carmen Rojas MD 12/09/2023 1:02 PM Signed Aston Napoles Consultation requested by Aston Mcmahan DPM for an opinion regarding Mr. Aston Napoles, and my final recommendations will be communicated back to the requesting physician by way of shared medical record or letter via [place] mail. CHIEF COMPLAINT: LEFT Foot Pain HISTORY OF PRESENT ILLNESS: This is a 48 year old male who presents today for evaluation of left foot pain. Patient reports a history of left achilles pain beginning in 2019 with no specific injury. Then he established with Dr. Martir OCHOA and underwent several months of physical therapy and daily NSAID therapy. He also modified his activities and changed his shoewear from dress shoes to supportive tennis shoes. He reports his previous severe symptoms improved to a constant dull ache with waxing and waning symptoms. Without new injury, his symptoms became more severe 8 months ago. Then he again followed up with Dr Mcmahan and resumed PT and use of daily NSAIDS. Despite these therapies, he continues to have constant daily pain that does cause him to limp, is limiting his tolerance for enjoying walks with his and greatly affecting his quality of life. He previously discussed surgery with Dr. Mcmahan and presents today to discuss surgical consideration. Location of Pain: Left foot The pain is constant. The pain is a 1/10 at its best, and 9/10 at its worst. They reports nocturnal pain. The pain is exacerbated by walking, managing stairs, prolonged standing, and running. The pain is improved with ice, biofreeze, physical therapy and NSAIDS. They deny Numbness, Tingling. Endorses Pain. They are able to walk 10 minutes before having to stop secondary to pain. 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 Smoking History: never Personal or Family Hx of DVT/PE: No; None Diabetic:No Last Hgba1c: Hemoglobin A1C (%) Date Value 12/16/2022 5.2 ) ASSESSMENT/PLAN: Achilles Tendinitis Left Lower Extremity (insertional) Treatment options were reviewed in depth including non operative treatment options consisting of physical therapy, CAM boot immobilization, activity modification and daily NSAID therapy, as well as, surgical intervention. Pro's and con's of both were reviewed. At this point, patient feels he has exhausted conservative therapy and his symptoms are causing him chronic daily pain that is greatly affecting his tolerance for most activities and overall quality of life. He desires to proceed with surgical intervention and risks of surgery were reviewed and consent signed. Thank you for the opportunity to participate in this patient's care. PHYSICAL EXAMINATION: Left Lower Extremity: grossly intact ROM and strength, no obvious deformity. Left Lower Extremity: Gait Cycle: Normal No, Limp: antalgic:left. Inspection: Alignment: neutral heel Symmetry: Swelling: no. Redness: no. Ecchymosis: no Effusion: 0 Palpation: Warmth: no, Tenderness:Yes: Foot Posterior Heel. Pain present at the posterolateral calcaneal tuberosity. No mid substance achilles ttp. ROM: Ankle- Extension:0 Ankle-Flexion:60 Ankle- Inversion: 10 Ankle- Eversion: 10. Strength: 5 Stability: Ligamentous instability: no Specialized Tests: Damon Test: Good plantar flexion Neurologic Status: Sensation to all 4 compartments of lower extremity are grossly intact to light touch today in the office. Vascular Status: Posterior Tibial: 2+ Bilateral Dorsalis Pedis: 2+ Bilateral Skin: Normal IMAGING: Left Foot Xrays (3V) obtained Oct 10, 2023 and Left Ankle MRI w/o obtained Nov 10, 2023. Final results and radiologist's interpretation, available in the [facility] health record. Images were reviewed with the patient/family members in the office today. My personal interpretation of the performed imaging is a large posterior calcaneal enthesophyte noted on xray. No fractures or dislocations. On MRI there is evidence of chronic appearing insertional achilles tendinosis with prominent enthesophyte with mild calcaneal bone marrow edema. Jaylene Balderrama DO Fellow Orthopaedic Attending Addendum Attending Note: Collado findings of HPI confirmed. Patient examined. Discussed with the fellow and the patient. Plan as outlined below. ASSESSMENT/PLAN: 1. Achilles tendinitis of left lower extremity - ICD9: 726.71, ICD10: M76.62 - L ankle XR and MRI reviewed Aston and I discussed his insertional Achilles tendinitis. We discussed continued nonoperative treatmen (more content not included)... Normal [facility] CNTHERAPYon 12-05-2023 CNTHERAPY OT/PT/Speech Visit ( PTWS) ASTON NAPOLES ([id number]) 1975 M Date Time Provider Department 12/05/23 8:15 AM ENOC BYNUM PTWS Date Time Provider Department Center 12/05/2023 8:15 AM [id number], SEAN PTWS Anthony Appiah Reason for Visit: Physical Therapy [503] Primary Visit Diagnosis:Chronic heel pain, left [M79.672, G89.29] Allergies As of Date: 12/05/2023 Noted Allergy Reaction COMPAZINE (PROCHLORPERAZINE EDISY*06/03/2017 14 - Other: See Comments Comments: Jittery feeling Date Reviewed: 11/01/2023 Reviewed by: Madhuri Casiano PA-C - Fully Assessed Prescriptions as of 12/05/2023 - clotrimazole-betamethasone (LOTRISONE) cream Apply to affected area two times a day as needed. - fluticasone (FLONASE) 50 mcg/actuation nasal spray Use 2 Sprays in each nostril once daily. Rinse mouth after use. - aspirin/acetaminophen/caffe ine (EXCEDRIN MIGRAINE ORAL) Take by mouth. - naproxen sodium (ALEVE ORAL) Take by mouth. - DULoxetine (CYMBALTA) 30 mg capsule Take 1 capsule by mouth once daily. - albuterol HFA (VENTOLIN HFA) 90 mcg/actuation inhaler Inhale 2 Puffs as instructed every 4 hours as needed for wheezing/shortness of breath. - COMPOUNDED PRESCRIPTION Increase CPAP setting to 13 cm H2O pressure. Dx: KEYLA - CPAP Initiate CPAP @ 11 cm of water with humidification. Mask (per patient preference) optional chin strap (if indicated) , filters, tubing, humidifier and lifetime supplies. - CETIRIZINE HCL (ZYRTEC ORAL) Take 1 tablet by mouth two times a day. Normal [facility] CNTHERAPYon 11-14-2023 CNTHERAPY OT/PT/Speech Visit ( PTWS) ASTON NAPOLES ([id number]) 1975 M Date Time Provider Department 11/14/23 9:00 AM ENOC BYNUM PTRAMANA Date Time Provider Department [place] 11/14/2023 9:00 AM [id number], SEAN PTRAMANA [place] Reason for Visit: PT Eval [747] Primary Visit Diagnosis:Chronic heel pain, left [M79.672, G89.29] Allergies As of Date: 11/14/2023 Noted Allergy Reaction COMPAZINE (PROCHLORPERAZINE EDISY*06/03/2017 14 - Other: See Comments Comments: Jittery feeling Date Reviewed: 11/01/2023 Reviewed by: Madhuri Casiano PA-C - Fully Assessed Prescriptions as of 11/16/2023 - ALPRAZolam (XANAX) 0.25 mg tablet Take 1 tablet by mouth two times a day as needed for anxiety for up to 30 days. - clotrimazole-betamethasone (LOTRISONE) cream Apply to affected area two times a day as needed. - fluticasone (FLONASE) 50 mcg/actuation nasal spray Use 2 Sprays in each nostril once daily. Rinse mouth after use. - aspirin/acetaminophen/caffe ine (EXCEDRIN MIGRAINE ORAL) Take by mouth. - naproxen sodium (ALEVE ORAL) Take by mouth. - DULoxetine (CYMBALTA) 30 mg capsule Take 1 capsule by mouth once daily. - albuterol HFA (VENTOLIN HFA) 90 mcg/actuation inhaler Inhale 2 Puffs as instructed every 4 hours as needed for wheezing/shortness of breath. - COMPOUNDED PRESCRIPTION Increase CPAP setting to 13 cm H2O pressure. Dx: KEYLA - CPAP Initiate CPAP @ 11 cm of water with humidification. Mask (per patient preference) optional chin strap (if indicated) , filters, tubing, humidifier and lifetime supplies. - CETIRIZINE HCL (ZYRTEC ORAL) Take 1 tablet by mouth two times a day. Tubing Drier: Therapy (PT/OT/Speech/Resp) ID: [id number] 11/14/2023 9:32 AM Author: ENOC BYNUM Signed by ENOC BYNUM PT on 11/14/2023 at 9:32 AM Document text: Program_ID:[id number] Access Code: [email or web address] URL: [email or web address]://[employer]/ Date: 11-14-2023 Prepared By: Enoc Bynum Program Notes Exercises - Seated Calf Stretch with Strap - 3 x daily - 7 x weekly - 1 sets - 3 reps - Seated Soleus Stretch with Strap - 3 x daily - 7 x weekly - 1 sets - 3 reps Normal [facility] THERAPY NTon 11-14-2023 THERAPY NT HNO ID: [id number] Author: ENOC BYNUM PT Service: ? Author Type: Physical Therapist Type: Therapy (PT/OT/Speech/Resp) Filed: 11/14/2023 09:32 Note Text: Program_ID:[id number] Access Code: [email or web address] URL: [email or web address]/ Date: 11-14-2023 Prepared By: Enoc Bynum Program Notes Exercises - Seated Calf Stretch with Strap - 3 x daily - 7 x weekly - 1 sets - 3 reps - Seated Soleus Stretch with Strap - 3 x daily - 7 x weekly - 1 sets - 3 reps Normal [facility] MR Ankle - left WO contrasto n 11-10-2023 IMPRESSION: SEVERE ACHILLES TENDINOSIS AND RETROCALCANEAL BURSITIS. NO ACUTE FRACTURE. 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 Increase CPAP setting to 13 cm H2O pressure. Dx: KEYLA 1 Each 0 CPAP Initiate CPAP @ 11 cm of water with humidification. Mask (per patient preference) optional chin strap (if indicated) , filters, tubing, humidifier and lifetime supplies. 1 Device 0 CETIRIZINE HCL (ZYRTEC ORAL) Take 1 tablet by mouth two times a day. No current facility-administered medications for this visit. ROS ROS: His ROS was positive for that mentioned in th (more content not included)... Normal [facility] CRP SerPl-mCncon 11-01-2023 CRP [Mass/Vol] mg/L Normal <0.9 [facility] Comment on above: Order Comment: Speci men Type: BLOOD SPECIMENOrdering Facility: [facility] Address: [address] [place] [address] Performed By: #### 2 4321-2, 1987-08 ####[facility] LABCLIA [id number] [place] [address] [place] CRP [Mass/Vol]on 11-01-2023 Interpretation and review of laboratory results Normal [facility] ECG COMPLETEon 11-01-2023 Atrial Rate [address] [facility] Calculated P [place] 25 degrees [facility] Calculated R [place] -51 degrees [facility] Calculated T [place] -3 degrees [facility] P-R Interval [address] [facility] QRS Duration [address] [facility] QT Interval [address] [facility] QTC Calculation (Bazett) [address] [facility] Ventricular Rate 75 BPM [facility] NORMAL SINUS RHYTHM LEFT AXIS DEVIATION CANNOT EXCLUDE ANTERIOR MYOCARDIAL INFARCTION , AGE UNDETERMINED ABNORMAL ECG Confirmed by ANNIE WHITLOCK DO ([id number]) on 11/01/2023 8:09:29 [facility] NAME : BINDU NAPOLES PID : [id number] : 1975 Gender : Male Race : ORD : Procedure Date : Oct 31 2023 18:43:39 Edit Date : Nov 01 2023 08:09:33 Diagnosis: NORMAL SINUS RHYTHM LEFT AXIS DEVIATION CANNOT EXCLUDE ANTERIOR MYOCARDIAL INFARCTION , AGE UNDETERMINED ABNORMAL ECG Confirmed by ANNIE WHITLOCK DO ([id number]) on 11/01/2023 8:09:29 AM Test Reason : Location : 185 : [facility] Overread By : ANNIE WHITLOCK DO Edited By : ANNIE WHITLOCK DO Referred By : FRANCISCO JAVIER OSORIO Acquired by : [facility] ESR Westergren method (Bld) [Velocity]on 11-01-2023 ESR (Bld) [Velocity] 6 mm/h [facility] Interpretation and review of laboratory results Normal [facility] ESR (Bld) [Velocity] 6 mm/h Normal 0-15 [facility] Comment on above: Order Comment: Speci men Type: BLOOD SPECIMENOrdering Facility: [facility] Address: [address] [place] [address] Performed By: #### 4 537-7, 82138-1 ####[facility] LABCLIA [id number] [place] [address] [place] No Panel Informationon 10-[address] [facility] VITAMIN D 25 HYDROXYon 10-31 25-hydroxyvitamin D3 [Mass/Vol] 30.5 ng/mL Low 31.0 - 80.0 ng/mL [facility] Comment on above: Classification of 25 [place] Vitamin D status: Deficiency/Insufficiency: < or = 30 ng/ml. Sufficiency/Optimal Levels: 31-80 ng/mL Toxicity: > 100 ng/mL. Test performed by chemiluminescent immunoassay. EVELIAOVon 10-31-2023 CNOV Office Visit (INTMWS ) ASTON NAPOLES ([id number]) 1975 M Date Time Provider Department 10/31/23 6:00 PM FRANCISCO JAVIER OSORIO INTMWS During your visit today, we recorded the following information about you: Pulse Blood pressure Weight Height 79/minute 130/87 102.1 kg 1.742 m Francisco Javier Osorio MD 11/01/2023 1:12 PM Signed This note was created using [employer]. Subjective Patient presents with: Yearly Exam F/U 6 months Aston Napoles is a 48 year old male. He was dealing with more stress and anxiety from work and family reasons. He had gained weight from stress eating. Blood pressure was elevating as well. He had non exertional chest pain related to stress. He had a history of psoriasis and suspected psoriatic arthritis due to improvement in joint pains when treated with Taltz. 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 He wanted a referral to transfer dermatology. He called in with 2 episodes of disturbance of smell. He had a history of seizure years ago with a similar nasal aura. He had no seizure or syncope. He has been feeling general joint pains and achiness for several months. Review of Systems Constitutional: Positive for unexpected weight change. Negative for activity change, appetite change, diaphoresis, fatigue and fever. HENT: Negative for congestion. Eyes: Negative for visual disturbance. Respiratory: Negative for cough, shortness of breath and wheezing. Cardiovascular: Negative for chest pain, palpitations and leg swelling. Gastrointestinal: Negative for abdominal pain, constipation, diarrhea, nausea and vomiting. Genitourinary: Negative for difficulty urinating and dysuria. Musculoskeletal: Positive for arthralgias and myalgias. Negative for gait problem and joint swelling. Skin: Positive for rash. Neurological: Negative for dizziness, seizures and headaches. Psychiatric/Behavioral: Positive for dysphoric mood. The patient is nervous/anxious. 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 02/04/2019 Seasonal allergic rhinitis 02/27/2018 Seizure disorder (HCC) 2001 twice initially, then none on medication for 9 years, weaned off successfully Somnolence, daytime 02/27/2018 PAST SURGICAL HISTORY Procedure Laterality Date APPENDECTOMY 1997 COLONOSCOPY SCREENING N/A 02/17/2023 future colonoscopies need MAC EXCISION PILONIDAL CYST/SINUS SIMPLE INGUINAL HERNIA REPAIR HX Bilateral 1993 1992 and 1993 each side PAST SURGICAL HISTORY OF 08/10/2023 DESTRUCTION OF ANAL CONDYLOMA SKIN BIOPSY HX TONSILLECTOMY HX 1980 FAMILY HISTORY Problem Relation Age of Onset [...] Comment: once a month Drug use: No ALLERGIES Allergen Reactions Compazine [Prochlor* Other: See Comments Jittery feeling Current Outpatient Medications Medication Sig fluticasone (FLONASE) 50 mcg/actuation nasal spray Use 2 Sprays in each nostril once daily. Rinse mouth after use. aspirin/acetaminophen/caffe ine (EXCEDRIN MIGRAINE ORAL) Take by mouth. naproxen sodium (ALEVE ORAL) Take by mouth. DULoxetine (CYMBALTA) 30 mg capsule Take 1 capsule by mouth once daily. albuterol HFA (VENTOLIN HFA) 90 mcg/actuation inhaler Inhale 2 Puffs as instructed every 4 hours as needed for wheezing/shortness of breath. ALPRAZolam (XANAX) 0.25 mg tablet Take 0.25 mg by mouth as needed for anxiety. clotrimazole-betamethasone (LOTRISONE) cream Apply to affected area twice daily as needed. COMPOUNDED PRESCRIPTION Increase CPAP setting to 13 cm H2O pressure. Dx: KEYLA CPAP Initiate CPAP @ 11 cm of water with humidification. Mask (per patient preference) optional chin strap (if indicated) , filters, tubing, humidifier and lifetime supplies. CETIRIZINE HCL (ZYRTEC ORAL) Take 1 tablet by mouth two times a day. ixekizumab (TALTZ AUTOINJECTOR) 80 mg/mL pen Inject 80 mg subcutaneously one time only. (Patient not taking: Reported on 10/10/2023) No current facility-administered medications for this visit. Objective BP 130/87 (BP Site: Left Arm, BP Position: Sitting, BP Cuff Size: Large Adult) Pulse 79 Ht 174.2 cm (5' 8.6 ) Wt 102.1 kg (225 lb) BMI 33.62 kg/m? Physical Exam Constitutional: Appearance: Normal appearance. HENT: Head: Normocephalic. Nose: Nose normal. Eyes: Extraocular Movements: Ex (more content not included)... Normal [facility] [id number] 10-31-2023 ECG01 Ventricular Rate : 7 5 BPM Atrial Rate : 75 BPM P-R Interval : 162 ms QRS Duration : 100 ms Q-T Interval : 414 ms QTC Calculation(Bazett) : 462 ms Calculated P [place] : 25 degrees Calculated R [place] : -51 degrees Calculated T [place] : -3 degrees NORMAL SINUS RHYTHM LEFT AXIS DEVIATION CANNOT EXCLUDE ANTERIOR MYOCARDIAL INFARCTION , AGE UNDETERMINED ABNORMAL ECG Confirmed by ANNIE WHITLOCK DO ([id number]) on 11/01/2023 8:09:29 AM NAME : ASTON NAPOLES PID : [id number] : 1975 Gender : Male Race : ORD : Procedure Date : Oct 31 2023 18:43:39 Edit Date : Nov 01 2023 08:09:33 Diagnosis: NORMAL SINUS RHYTHM LEFT AXIS DEVIATION CANNOT EXCLUDE ANTERIOR MYOCARDIAL INFARCTION , AGE UNDETERMINED ABNORMAL ECG Confirmed by ANNIE WHITLOCK DO ([id number]) on 11/01/2023 8:09:29 AM Test Reason : Location : 185 : [facility] Overread By : ANNIE WHITLOCK DO Edited By : ANNIE WHITLOCK DO Referred By : FRANCISCO JAVIER OSORIO Acquired by : Johann ROWELL [facility] Lul 10-28-2023 CARINAN Telephone (INTMWS) ASTON NAPOLES ([id number]) 1975 M Date Time Provider Department 10/28/23 FRANCISCO JAVIER OSORIO INTMWS During your visit today, we recorded the following information about you: Amy Ervin LPN 10/28/2023 10:32 AM Signed Patient calling he had seizure disorder when he was in his 20's and had weaned off the medication. He said they could never find out why was having seizures. Patient said yesterday and today he gets a pre seizure aura, smell of ammonia. He has not had a seizure but is under a lot of stress with his job. He took a xanax yesterday and it helped. He said he was going to take another today to calm him down. Patient has his normal appt with PCP on Tuesday10/31/2023. He said has not seen Neurologist for many years was in [place]. Patient asking is there anything more he should be doing? Please advise Francisco Javier Osorio MD 10/28/2023 12:56 PM Signed De stressing techniques. No swimming or climbing unprotected heights. Consult neurology. Amy Ervin LPN 10/28/2023 1:07 PM Signed Phoned patient and went over notes below from Dr Osorio with understanding. Assisted with transfer to pharmacy scheduler to get Neurology appt set up. Norah Trevizo 10/28/2023 1:12 PM Signed Patient was transferred to ma to arrange consult to Neurology I was unable to schedule and advised to warm transfer to [phone] to arrange this. I had to leave a voice mail with [facility], Name and contact number for them to contact the patient in the next 3 business days. Provided that number to the patient to follow up if he does not hear from them in 3 days also advise to call our office back if needed. Allergies As of Date: 10/28/2023 Noted Allergy Reaction COMPAZINE (PROCHLORPERAZINE EDISY*06/03/2017 14 - Other: See Comments Comments: Jittery feeling Date Reviewed: 10/10/2023 Reviewed by: Yas Ceron RN - Fully Assessed Reason for Visit: Patient Question [9346] Primary Visit Diagnosis:History of seizure [Z87.898] Order(s):CONSULT TO NEUROLOGY [9381] Order #: [id number]: 1 FUTURE Prescriptions as of 10/28/2023 - fluticasone (FLONASE) 50 mcg/actuation nasal spray Use 2 Sprays in each nostril once daily. Rinse mouth after use. - aspirin/acetaminophen/caffe ine (EXCEDRIN MIGRAINE ORAL) Take by mouth. - naproxen sodium (ALEVE ORAL) Take by mouth. - DULoxetine (CYMBALTA) 30 mg capsule Take 1 capsule by mouth once daily. - ixekizumab (TALTZ AUTOINJECTOR) 80 mg/mL pen Inject 80 mg subcutaneously one time only. - albuterol HFA (VENTOLIN HFA) 90 mcg/actuation inhaler Inhale 2 Puffs as instructed every 4 hours as needed for wheezing/shortness of breath. - ALPRAZolam (XANAX) 0.25 mg tablet Take 0.25 mg by mouth as needed for anxiety. - clotrimazole-betamethasone (LOTRISONE) cream Apply to affected area twice daily as needed. - COMPOUNDED PRESCRIPTION Increase CPAP setting to 13 cm H2O pressure. Dx: KEYLA - CPAP Initiate CPAP @ 11 cm of water with humidification. Mask (per patient preference) optional chin strap (if indicated) , filters, tubing, humidifier and lifetime supplies. - CETIRIZINE HCL (ZYRTEC ORAL) Take 1 tablet by mouth two times a day. 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 Rinse mouth after use. - aspirin/acetaminophen/caffe ine (EXCEDRIN MIGRAINE ORAL) Take by mouth. - DULoxetine (CYMBALTA) 30 mg capsule Take 1 capsule by mouth once daily. - albuterol HFA (VENTOLIN HFA) 90 mcg/actuation inhaler Inhale 2 Puffs as instructed every 4 hours as needed for wheezing/shortness of breath. - naproxen sodium (ALEVE ORAL) Take by mouth. - ixekizumab (TALTZ AUTOINJECTOR) 80 mg/mL pen Inject 80 mg subcutaneously one time only. - ALPRAZolam (XANAX) 0.25 mg tablet Take 0.25 mg by mouth as needed for anxiety. - clotrimazole-betamethasone (LOTRISONE) cream Apply to affected area twice daily as needed. - COMPOUNDED PRESCRIPTION Increase CPAP setting to 13 cm H2O pressure. Dx: KEYLA - CPAP Initiate CPAP @ 11 cm of water with humidification. Mask (per patient preference) optional chin strap (if indicated) , filters, tubing, humidifier and lifetime supplies. - CETIRIZINE HCL (ZYRTEC ORAL) Take 1 tablet by mouth two times a day. 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 [*02/04/2019 Abdominal pain, left lower quadrant [R10.32] 02/17/2023 05/02/2023 Rectal bleeding [K62.5] 02/17/2023 05/02/2023 HLD (hyperlipidemia) [E78.5] 08/04/2023 Psoriasis [L40.9] 08/04/2023 Encounter Status:Closed by VALDO KELLEY on 10/18/23 [facility] Remi 10-10-2023 CNOV Office Visit (PODIWS ) DONYASTON ([id number]) 1975 M Date Time Provider Department 10/10/23 10:45 AM ASTON MCMAHAN During your visit today, we recorded the following information about you: Yas Ceron RN 10/15/2023 7:29 AM Signed AMB ROOMING INTAKE FLOWSHEET DATA Pain Pain Level: 9 Pain Location: Foot-Left Description: Aching, Sharp, Stabbing, Dull Duration Amount of Time: 4 Duration Units: Years Frequency: Continuous Intervention/Comfort measure: Relaxation, Reposition Patient presents with: Left Foot - New, Pain Patient presents for left foot pain. States that he was seen by Dr. Mcmahan in 2019 for this pain and left heel spur. Pain has never improved, has steadily become worse. States he has to compensate when walking up the stairs, pain radiating up leg when he steps down. XR prior to appointment. Aston Mcmahan 10/15/2023 7:29 AM Signed Initial Podiatric Office Visit: Chief Complaint: This 48 year old male who presents with chief complaint:left heel pain HPI Patient presents to clinic for follow-up left heel pain This has been going on since 2019. He has been putting off doing any surgery due to recovery Has tried physical therapy, gel padding, shoe modifications Continues to have pain. Has to wear dress shoes at times for work but limits wearing dress shoes as much as possible because of the pain. 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 Rinse mouth after use. aspirin/acetaminophen/caffe ine (EXCEDRIN MIGRAINE ORAL) Take by mouth. DULoxetine (CYMBALTA) 30 mg capsule Take 1 capsule by mouth once daily. albuterol HFA (VENTOLIN HFA) 90 mcg/actuation inhaler Inhale 2 Puffs as instructed every 4 hours as needed for wheezing/shortness of breath. ALPRAZolam (XANAX) 0.25 mg tablet Take 0.25 mg by mouth as needed for anxiety. clotrimazole-betamethasone (LOTRISONE) cream Apply to affected area twice daily as needed. COMPOUNDED PRESCRIPTION Increase CPAP setting to 13 cm H2O pressure. Dx: KEYLA CPAP Initiate CPAP @ 11 cm of water with humidification. Mask (per patient preference) optional chin strap (if indicated) , filters, tubing, humidifier and lifetime supplies. CETIRIZINE HCL (ZYRTEC ORAL) Take 1 tablet by mouth two times a day. naproxen sodium (ALEVE ORAL) Take by mouth. ixekizumab (TALTZ AUTOINJECTOR) 80 mg/mL pen Inject 80 mg subcutaneously one time only. (Patient not taking: Reported on 10/10/2023) No current facility-administered medications for this visit. ALLERGIES Allergen Reactions Compazine [Prochlor* Other: See Comments Jittery feeling PAST SURGICAL HISTORY Procedure Laterality Date APPENDECTOMY 1998 COLONOSCOPY SCREENING N/A 02/17/2023 future colonoscopies need MAC EXCISION PILONIDAL CYST/SINUS SIMPLE INGUINAL HERNIA REPAIR HX Bilateral 1993 1992 and 1994 each side PAST SURGICAL HISTORY OF 08/10/2023 DESTRUCTION OF ANAL CONDYLOMA SKIN BIOPSY HX TONSILLECTOMY HX 1980 FAMILY HISTORY Problem Relation Age of Onset [...] Comment: once a month Drug use: No REVIEW OF SYSTEMS GENERAL: Negative for Malaise, significant weight loss, fever RESPIRATORY: Negative for cough, wheezing and shortness of breath CARDIOVASCULAR: Negative for chest pain, leg swelling and palpitations GI: Negative for abdominal discomfort, blood in stools or black stools and change in bowel habits : Negative for dysuria, frequency and incontinence MUSCULOSKELETAL: Negative for joint pain or swelling, back pain, and muscle pain. SKIN: Negative for lesions, rash, and itching. HEMATOLOGY/LYMPHOLOGY Negative for prolonged bleeding, bruising easily, and swollen nodes. ENDOCRINE: Negative for c (more content not included)... Normal [facility] XR FOOT 3V AP/LAT/OBL LTon 0 10-10-2023 XR FOOT 3V AP/LAT/OBL LT * * *Final Report* * * DATE OF EXAM: Oct 10 2023 10:47AM WRX [id number] - XR FOOT 3V AP/LAT/OBL LT / PROCEDURE REASON: Pain in left foot * * * * Physician Interpretation * * * * EXAMINATION: XR FOOT 3V AP/LAT/OBL LT CLINICAL HISTORY: Left foot pain Technique: XR FOOT 3V AP/LAT/OBL LT -- LEFT with 3 views on 3 images Comparison: X-ray bilateral feet 02/08/2020 RESULT: No acute fracture or dislocation. Joint spaces are maintained. Plantar and posterior calcaneal spurs. IMPRESSION: No acute osseous abnormality Fruit Sprayer: ADIA Transcribe Date/Time: Oct 14 2023 4:12P Dictated by : SELENE MAI MD This examination was interpreted and the report reviewed and electronically signed by: SELENE MAI MD on Oct 14 2023 4:13PM EST [id number] Normal [facility] CNOVon 08-22-2023 CNOV Office Visit (GENSWS ) ASTON NAPOLES ([id number]) 1975 M Date Time Provider Department 08/22/23 2:00 PM JONATHAN NIELSEN During your visit today, we recorded the following information about you: Temperature Pulse Blood pressure Weight 97 degrees 104/minute 130/82 100.6 kg Jonathan Nielsen MD 09/20/2023 8:35 AM Signed Subjective: Patient is status post fulguration of anal warts. Tolerating a diet moving his bowels without difficulty no complaints Assessment:Blood pressure 130/82, pulse 104, temperature 36.1 ?C (97 ?F), weight 100.6 kg (221 lb 12.8 oz), SpO2 97%. Perianal area is clean without signs of infection. Assessment: Aftercare Plan: Like to scope him in 1 year just to make sure that the area is completely healed see him back at that time. Allergies As of Date: 08/22/2023 Noted Allergy Reaction COMPAZINE (PROCHLORPERAZINE EDISY*06/03/2017 14 - Other: See Comments Comments: Jittery feeling Date Reviewed: 08/22/2023 Reviewed by: Jaylene Morales LPN - Fully Assessed Reason for Visit: Post Op [174] Cmt: Surgery 08/10/23, op report in EPIC Primary Visit Diagnosis:Anal warts [A63.0] Prescriptions as of 09/20/2023 - fluticasone (FLONASE) 50 mcg/actuation nasal spray Use 2 Sprays in each nostril once daily. Rinse mouth after use. - aspirin/acetaminophen/caffe ine (EXCEDRIN MIGRAINE ORAL) Take by mouth. - naproxen sodium (ALEVE ORAL) Take by mouth. - DULoxetine (CYMBALTA) 30 mg capsule Take 1 capsule by mouth once daily. - ixekizumab (TALTZ AUTOINJECTOR) 80 mg/mL pen Inject 80 mg subcutaneously one time only. - albuterol HFA (VENTOLIN HFA) 90 mcg/actuation inhaler Inhale 2 Puffs as instructed every 4 hours as needed for wheezing/shortness of breath. - ALPRAZolam (XANAX) 0.25 mg tablet Take 0.25 mg by mouth as needed for anxiety. - clotrimazole-betamethasone (LOTRISONE) cream Apply to affected area twice daily as needed. - COMPOUNDED PRESCRIPTION Increase CPAP setting to 13 cm H2O pressure. Dx: KEYLA - CPAP Initiate CPAP @ 11 cm of water with humidification. Mask (per patient preference) optional chin strap (if indicated) , filters, tubing, humidifier and lifetime supplies. - CETIRIZINE HCL (ZYRTEC ORAL) Take 1 tablet by mouth two times a day. 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 [*02/04/2019 Abdominal pain, left lower quadrant [R10.32] 02/17/2023 05/02/2023 Rectal bleeding [K62.5] 02/17/2023 05/02/2023 HLD (hyperlipidemia) [E78.5] 08/04/2023 Psoriasis [L40.9] 08/04/2023 Encounter Status:Closed by JONATHAN NIELSEN on 09/20/23 Normal [facility] ANES POSTPROC EVALon 024 ANES POSTPROC EVAL HNO ID: [id number] Author: ROSS TORRES MD Service: Anesthesiology Author Type: Anesthesiologist Type: Anesthesia Postprocedure Evaluation Filed: 08/10/2023 16:06 Note Text: POST ANESTHESIA EVALUATION NOTE : 1975 Procedure Summary Date: 08/10/23 Room / Location: AL OR / AL OR Anesthesia Start: 1324 Anesthesia Stop: 1411 Procedure: DESTRUCTION OF ANAL CONDYLOMA VIA ELECTRODESICCATION SIMPLE (Anus) Diagnosis: Anal warts (Anal warts [A63.0]) Surgeons: Jonathan Nielsen MD Responsible Provider: Ross Torres MD Anesthesia Type: general ASA Status: 2 Anesthesia Type: general Airway Type: LMA Last Vitals Vitals Value Taken Time BP 152/88 08/10/23 1500 Temp 36.2 ?C (97.2 ?F) 08/10/23 1445 Pulse 77 08/10/23 1500 Resp 20 08/10/23 1500 SpO2 98 % 08/10/23 1500 Post Anesthesia Patient Status Patient Evaluation: PACU. PACU/ICU Patient Condition: stable. Anticipated Disposition: phase 2 then home. Neurological Status: aware and responsive. Pulmonary Status: breathing comfortably on room air Airway Control: returned to baseline unsupported. Cardiovascular Status: stable. Pain Management: clinically adequate - multimodal analgesia pain management approach Postoperative Hydration: acceptable. Intraoperative Events: no significant anesthesia events Recommendation: continue current plan of care. Anesthesia Observations No Documentation SIGNATURE: Ross Torres MD PATIENT NAME: Aston Napoles DATE: August 10, 2023 TIME: 4:06 PM CSN: [id number] [facility] ANES PRE-OPon 08-10-2023 ANES PRE-OP HNO ID: [id number] Author: ROSS TORRES MD Service: Anesthesiology Author Type: Anesthesiologist Type: Anesthesia Preprocedure Evaluation Filed: 08/10/2023 13:00 Note Text: ANESTHESIOLOGY DAY OF SURGERY NOTE : 1975 Procedure Information Date/Time: 08/10/23 1415 Procedure: DESTRUCTION OF ANAL CONDYLOMA VIA ELECTRODESICCATION SIMPLE (Anus) Location: AL OR04 / AL OR Surgeons: Jonathan Nielsen MD Estimated body mass index is 29.29 kg/m? as calculated from the following: Height as of 08/04/23: 180.3 cm (5' 11 ). Weight as of 08/04/23: 95.3 kg (210 lb). Most recent hematocrit and potassium results: Hematocrit 46.5 12/16/2022 Potassium 4.2 12/16/2022 Relevant Problems ANESTHESIA (+) KEYLA (obstructive sleep apnea) PULMONARY (+) KEYLA (obstructive sleep apnea) I - PHYSICAL EVALUATION AIRWAY Patient intubated: No. Mallampati: II. TM distance: >3 FB. Neck ROM: full ROM without neurological symptoms. Mouth opening: adequate. Short neck: no. Thick neck: no DENTAL Dental findings: poor dentition. Additional exam findings: no II - ANESTHESIA PLAN ASA Score: 2 Anesthetic Plan: general Airway type: LMA NPO Status: adequate Beta Racheal Monitoring Plan Monitoring plan: Standard ASA. Post Procedure Analgesic Plan Postoperative analgesic plan: parenteral or oral opioids and multimodal analgesia. Patient / Surrogate agrees to blood products: yes DNR status not reviewed with patient and/or family prior to surgery. Significant changes in the patient condition since the History and Physical, not otherwise documented in primary service progress note: no. Potential Anesthesia issues that may suggest increased risk of complications or contraindication to planned procedure: none. Vitals Value Taken Time BP 123/84 08/10/23 1218 Pulse Resp 16 08/10/23 1218 Temp 36.3 ?C (97.3 ?F) 08/10/23 1218 SpO2 97 % 08/10/23 1218 Facility-Administered Medications as of 08/10/2023 Medication Dose Route Frequency - lidocaine (PF) 10 mg/mL (1 %) 1-2 mg injection (XYLOCAINE) 0.1-0.2 mL INTRADERMAL PRN - lactated ringers iv infusion 5-30 mL/hr INTRAVENOUS CONTINUOUS - NaCl 0.9% iv flush bag 20 mL INTRAVENOUS PRN - ceFAZolin iv piggyback 2 g in D5W (iso-osmotic) 100 mL (ANCEF) 2 g INTRAVENOUS Pre-Op Once - acetaminophen 1,000 mg tab(s) (TYLENOL) 1,000 mg ORAL As Directed - lactated ringers iv infusion 5-30 mL/hr INTRAVENOUS CONTINUOUS Outpatient Medications as of 08/10/2023 Medication Sig - DULoxetine (CYMBALTA) 30 mg capsule Take 1 capsule by mouth once daily. - clotrimazole-betamethasone (LOTRISONE) cream Apply to affected area twice daily as needed. - fluticasone (FLONASE) 50 mcg/actuation nasal spray Use 2 Sprays in each nostril once daily. Rinse mouth after use. - COMPOUNDED PRESCRIPTION Increase CPAP setting to 13 cm H2O pressure. Dx: KEYLA - CPAP Initiate CPAP @ 11 cm of water with humidification. Mask (per patient preference) optional chin strap (if indicated) , filters, tubing, humidifier and lifetime supplies. - CETIRIZINE HCL (ZYRTEC ORAL) Take 1 tablet by mouth two times a day. - aspirin/acetaminophen/caffe ine (EXCEDRIN MIGRAINE ORAL) Take by mouth. - naproxen sodium (ALEVE ORAL) Take by mouth. - ixekizumab (TALTZ AUTOINJECTOR) 80 mg/mL pen Inject 80 mg subcutaneously one time only. - albuterol HFA (VENTOLIN HFA) 90 mcg/actuation inhaler Inhale 2 Puffs as instructed every 4 hours as needed for wheezing/shortness of breath. - ALPRAZolam (XANAX) 0.25 mg tablet Take 0.25 mg by mouth as needed for anxiety. I have interviewed and examined the patient. I have reviewed the medical record and/or the pre-anesthesia evaluation, pertinent labs, and test results. This contains updated information obtained within 48 hours of Surgery/Procedure. SIGNATURE: Ross Torres MD PATIENT NAME: Aston Napoles DATE: August 10, 2023 TIME: 12:59 PM CSN: [id number] [facility] HISTORY PHYSICALon HISTORY PHYSICAL HNO ID: [id number] Author: JONATHAN NIELSEN MD Service: General Surgery Author Type: Physician Type: H&P Filed: 08/10/2023 13:08 Note Text: HISTORY AND PHYSICAL Aston Napoles 1975 REFERRING PHYSICIAN: No ref. provider found CHIEF COMPLAINT: Follow Up (F/u colonoscopy 02/17/2023 - schedule surgery) HPI: The patient is a 48 year old male with a complaint of Anal warts (primary encounter diagnosis). Patient is status post a colonoscopy where [...] demonstrates strong and diffuse block staining pattern. 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 02/04/2019 Seasonal allergic rhinitis 02/27/2018 Seizure disorder (HCC) 2001 twice initially, then none on medication for 9 years, weaned off successfully Somnolence, daytime 02/27/2018 PAST SURGICAL HISTORY PAST SURGICAL HISTORY Procedure Laterality Date APPENDECTOMY 1998 COLONOSCOPY SCREENING N/A 02/17/2023 future colonoscopies need MAC EXCISION PILONIDAL CYST/SINUS SIMPLE INGUINAL HERNIA REPAIR HX Bilateral 1993 1992 and 1993 each side SKIN BIOPSY HX TONSILLECTOMY HX 1979 CURRENT MEDICATIONS Current Outpatient Medications Medication Sig DULoxetine (CYMBALTA) 30 mg capsule Take 1 capsule by mouth once daily. ixekizumab (TALTZ AUTOINJECTOR) 80 mg/mL pen Inject 80 mg subcutaneously one time only. albuterol HFA (VENTOLIN HFA) 90 mcg/actuation inhaler Inhale 2 Puffs as instructed every 4 hours as needed for wheezing/shortness of breath. ALPRAZolam (XANAX) 0.25 mg tablet Take 0.25 mg by mouth as needed for anxiety. clotrimazole-betamethasone (LOTRISONE) cream Apply to affected area [...] lifetime supplies. CETIRIZINE HCL (ZYRTEC ORAL) Take 1 tablet by mouth two times a day. benzonatate (TESSALON PERLES) 100 mg capsule Take 1-2 capsules by mouth three times a day as needed. (Patient not taking: Reported on 08/01/2023) dicyclomine (BENTYL) 20 mg tablet (Patient not taking: Reported on 08/01/2023) ondansetron orally disintegrating (ZOFRAN ODT) 4 mg disintegrating tablet (Patient not taking: Reported on 06/07/2023) guselkumab (TREMFYA) 100 mg/mL Inject 100 mg subcutaneously once every month. (Patient not taking: Reported on 08/01/2023) No current facility-administered medications for this visit. [...] Grandmother Heart disease Paternal Grandfather REVIEW OF SYSTEMS: General: The patient denies [...] bleeding from rectum, denies diverticulitis, denies constipation, d (more content not included)... [facility] OPERATIVE NOon 08-10-2023 OPERATIVE NO HNO ID: [id number] Author: JONATHAN NIELSEN MD Service: General Surgery Author Type: Physician Type: Operative Report Filed: 08/10/2023 14:13 Note Text: OPERATIVE/PROCEDURE REPORT LOG ID: [id number] SURGERY/PROCEDURE DATE: 08/10/2023 INCISION/PROCEDURE START TIME: 1340 INCISION CLOSE/PROCEDURE END TIME: 1357 SURGEON(S)/PROCEDURALIST(S) AND GARMENT FINISHER(S): Surgeon(s) and Role: * Jonathan Nielsen MD - Primary * Mary Bowden DO - Resident - Assisting Physician Professional Skateboarder: Mirna Powell PA-C Registered Nurse Equity Manager: Negin Rosado RN SURGERY/PROCEDURE(S): Destruction of anal condyloma via electrodesiccation, simple INDICATION: 48 year old male underwent colonoscopy on 02/17/2023 for evaluation of hematochezia and abdominal pain. Colonoscopy revealed a granularity in the rectum, which was biopsied, non-bleeding internal hemorrhoids, and diverticulosis of the sigmoid colon. Rectal biopsy final pathology showed high-grade squamous intraepithelial lesion (H-FRAN). Squamous mucosa showed full-thickness atypia without maturation across layers and increased mitotic activity. P16 immunohistochemical stain demonstrated strong and diffuse block staining pattern. He returned to clinic on 08/01/23 for follow up and to discuss next steps. All risks, benefits, alternatives, and possible complications for a rectal exam under anesthesia with anal fulguration with argon beam coagulation were discussed with the patient and he provided consent to proceed with the operation. ANESTHESIA: General SURGERY/PROCEDURE DETAILS: The patient was identified in the pre-operative area and brought to the OR suite. A sign in huddle was performed. He was transferred to the OR table in the supine position. General anesthesia was induced without difficulty. He was repositioned in lithotomy with padded yellowfin's. The anogenital region was prepped and draped in the usual sterile fashion. A final timeout was performed. A digital rectal exam was performed with revealed no external condylomas along the anal verge. There were large internal left lateral, right anterior, and right posterior hemorrhoid columns. A 4x4 gauze saturated in acetic acid was placed in the anal canal. Under anoscopy, multiple condylomas were identified along along the anal canal extending from the 9 o'clock to 3 o'clock position. The condylomas were treated using argon beam coagulation. Hemostasis was achieved. Surgicell was inserted into the anal canal with lidocaine lubrication jelly and an ABD was applied as dressing. The patient awoke from general anesthesia without difficulty, and transferred to PACU in stable condition. PRE-OP/PRE-PROCEDURE DIAGNOSIS: Anal condyloma POST-OP/POST-PROCEDURE DIAGNOSIS: Same as Preop ESTIMATED BLOOD LOSS: 5 mls SPECIMENS: None IMPLANTABLE DEVICES: NONE DRAINS: None COMPLICATIONS: None CLOSURE TECHNIQUE: NA PARTICIPATION IN SURGERY/PROCEDURE: Resident assisted , under direct supervision and the remainder of the procedure was performed by the primary surgeon/proceduralist with assistance. SIGNATURE: Mary Bowden DO PATIENT NAME: Aston Napoles DATE: August 10, 2023 TIME: 1:12 PM [facility]ove [facility] HISTORY PHYSICALon HISTORY PHYSICAL HNO ID: [id number] Author: PHAM LI PA-C Service: ? Author Type: Physician Professional Skateboarder Type: H&P Filed: 08/04/2023 14:53 Note Text: PREANESTHESIA CONSULT CLINIC TELEHEALTH VISIT SERVICE DATE: 08/04/2023 SERVICE TIME: 2:35 PM Patient has been identified by name and date of : Yes Reason for contact: PACC visit Accompanied by: Self This is a virtual visit using Vidaaoom Video Visit. It required patient-provider interaction for the medical decision making as documented below. I have communicated my name and active licensure. The patient's identity and physical location were verified at the time of this visit. Either the patient or their legal sales representative womens health has been informed of the risks and benefits of and alternatives to treatment through a remote evaluation and consents to proceed with the evaluation remotely. PRIMARY CARE PHYSICIAN: Francisco Javier Osorio MD REASON FOR VISIT: Aston Napoles is a 48 year old male who is scheduled for DESTRUCTION OF ANAL CONDYLOMA VIA ELECTRODESICCATION SIMPLE at the request of Dr. Jonathan Nielsen for consultation. My final recommendation will be communicated back to the requesting physician by way of shared medical record or letter. Assessment Patient has the following medical conditions which may affect artie-operative course: KEYLA (obstructive sleep apnea) Assessment: compliant with CPAP Anxiety and depression Assessment: on cymbalta HLD (hyperlipidemia) Assessment: not on medication Jack Activity Status Index: METS: Climb a flight of stairs or walk up a hill (5.50 METs) DASI Score: 5.5 Patient denies any chest pain or undue shortness of breath with the above physical activity. STOP-Bang Score: STOP-Bang Score: 0 (KEYLA on CPAP) [id number] Score: Age: <65 Sex: male CHF history: No Hypertension history: No Stroke/TIA/thromboembolism history: No Vascular disease history: No Diabetes history: No [id number] Score: 0 ANESTHESIA FINDINGS: Intubation History: No history of difficult intubation Significant Anesthesia Considerations: none Airway History: No history of difficult airway I - PHYSICAL EVALUATION AIRWAY Patient intubated: No. Tracheostomy tube not present Mallampati: II. TM distance: >3 FB. Neck ROM: full ROM without neurological symptoms. Short neck: no. Thick neck: no Carvajal present: yes Microretrognathia/Micronagt hia/Recessed Chin: No DENTAL Dental findings: teeth intact. Additional comments: bridge. II - ANESTHESIA PLAN Anesthetic plan additional comments: *PACC/TCI - anesthesia choice. Beta Racheal Monitoring Plan Post Procedure Analgesic Plan Prepared for surgery: This patient is optimally prepared for surgery. CONSULTS: Patient does not require consults for optimization at this time. The Following Tests/Procedures Have Been Initiated: Labs not indicated per PACC protocol, EKG not indicated per PACC protocol Planned Anesthetic: Per anesthesia choice Subjective CHIEF COMPLAINT: anal warts HPI: Aston is a 48 y/o male with anal warts. He underwent colonoscopy on 02/17/23, which revealed a area of granular mucosa. Biopsies revealed H-FRAN. He is scheduled for destruction of anal condyloma via electrodesiccation, on 08/09. 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 02/04/2019 Seasonal allergic rhinitis 02/27/2018 Seizure disorder (HCC) 2001 twice initially, then none on medication for 9 years, weaned off successfully Somnolence, daytime 02/27/2018 PAST SURGICAL HISTORY Procedure Laterality Date APPENDECTOMY 1997 COLONOSCOPY SCREENING N/A 02/17/2023 future colonoscopies need MAC EXCISION PILONIDAL CYST/SINUS SIMPLE INGUINAL HERNIA REPAIR HX Bilateral 1993 1992 and 1993 each side SKIN BIOPSY HX TONSILLECTOMY HX 1979 FAMILY HISTORY Problem Relation Age of Onset Hypertension Mother Heart Attack Father 60 sudden Hypertension Father No Known Problems Sister No Known Problems Brother Colon Cancer Maternal Grandfather 72 Heart disease Paternal Grandmother Heart disease Paternal Grandfather SOCIAL HISTORY: Social History Tobacco Use Smoking status: Never Smokeless tobacco: Never Vaping Use Vaping Use: Never used Substance Use Topics Alcohol use: Yes Comment: once a month Drug use: No Prior to Admission medications as of 08/01/23 6364 Medication Sig Last Dose Taking DULoxetine (CYMBALTA) 30 mg capsule Take 1 capsule by mouth once daily. ixekizumab (TALTZ AUTOINJECTOR) 80 mg/mL pen Inject 80 mg subcutaneously one time only. albuterol HFA (VENTOLIN HFA) 90 mcg/actuation inhaler Inhale 2 Puffs as instructed every 4 hours as needed for wheezing/shortness of breath. benzonatate (TESSALON PERLES) 100 mg capsule Take 1-2 capsules by mouth three times a day as needed. Patient not takin (more content not included)... [facility] CNOVon 08-01-2023 CNOV Office Visit (GENSWS ) ASTON NAPOLES ([id number]) 1975 M Date Time Provider Department 08/01/23 3:30 PM JONATHAN NIELSEN During your visit today, we recorded the following information about you: Temperature Pulse Respiration Blood pressure 97.3 degrees 96/minute 20/minute 132/88 Weight Height 98.2 kg 1.791 m Jonathan Nielsen MD 08/01/2023 4:15 PM Signed HISTORY AND PHYSICAL Aston Napoles 1975 REFERRING PHYSICIAN: No ref. provider found CHIEF COMPLAINT: Follow Up (F/u colonoscopy 02/17/2023 - schedule surgery) HPI: The patient is a 48 year old male with a complaint of Anal warts (primary encounter diagnosis). Patient is status post a colonoscopy where [...] demonstrates strong and diffuse block staining pattern. 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 ixekizumab (TALTZ AUTOINJECTOR) 80 mg/mL pen Inject 80 mg subcutaneously one time only. albuterol HFA (VENTOLIN HFA) 90 mcg/actuation inhaler Inhale 2 Puffs as instructed every 4 hours as needed for wheezing/shortness of breath. ALPRAZolam (XANAX) 0.25 mg tablet Take 0.25 mg by mouth as needed for anxiety. clotrimazole-betamethasone (LOTRISONE) cream Apply to affected area [...] lifetime supplies. CETIRIZINE HCL (ZYRTEC ORAL) Take 1 tablet by mouth two times a day. benzonatate (TESSALON PERLES) 100 mg capsule Take 1-2 capsules by mouth three times a day as needed. (Patient not taking: Reported on 08/01/2023) dicyclomine (BENTYL) 20 mg tablet (Patient not taking: Reported on 08/01/2023) ondansetron orally disintegrating (ZOFRAN ODT) 4 mg disintegrating tablet (Patient not taking: Reported on 06/07/2023) guselkumab (TREMFYA) 100 mg/mL Inject 100 mg subcutaneously once every month. (Patient not taking: Reported on 08/01/2023) No current facility-administered medications for this visit. [...] Grandmother Heart disease Paternal Grandfather REVIEW OF SYSTEMS: General: The patient denies [...] patient denies difficulty swallowing, denies acid reflux, (more content not included)... [facility] CNOVon 07-15-2023 CNOV Office Visit (INTMWS ) DONYASTON ([id number]) 1975 M Date Time Provider Department 07/15/23 7:00 AM CATARINA ROBERTS INTWS During your visit today, we recorded the following information about you: Temperature Respiration Blood pressure Weight 96.7 degrees 16/minute 130/86 97.5 kg Catarina Roberts, TEST RACK OPERATOR.SENIOR CONTRACT SPECIALIST 07/15/2023 8:15 AM Signed CC: Patient presents with: Follow Up HPI Aston Farrar Dony is a 48 year old male who presents today for above. He was treated for cellulitis of the abdominal wall with Keflex on 07/10. Today he reports redness has significantly improved and has not spread beyond marked area. Denies current fever, chills, malaise, body aches, nausea. 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 02/04/2019 Seasonal allergic rhinitis 02/27/2018 Seizure disorder (HCC) 2001 twice initially, then none on medication for 9 years, weaned off successfully Somnolence, daytime 02/27/2018 PAST SURGICAL HISTORY Procedure Laterality Date APPENDECTOMY 1997 COLONOSCOPY SCREENING N/A 02/17/2023 future colonoscopies need MAC EXCISION PILONIDAL CYST/SINUS SIMPLE INGUINAL HERNIA REPAIR HX Bilateral 1993 1992 and 1993 each side SKIN BIOPSY HX TONSILLECTOMY HX 1979 ALLERGIES Compazine [Prochlorperazine Edisylate] MEDICATIONS ixekizumab (TALTZ AUTOINJECTOR) 80 mg/mL pen Inject 80 mg subcutaneously one time only. cephALEXin (KEFLEX) 500 mg capsule Take 1 capsule by mouth four times daily for 5 days. albuterol HFA (VENTOLIN HFA) 90 mcg/actuation inhaler Inhale 2 Puffs as instructed every 4 hours as needed for wheezing/shortness of breath. benzonatate (TESSALON PERLES) 100 mg capsule Take 1-2 capsules by mouth three times a day as needed. ALPRAZolam (XANAX) 0.25 mg tablet Take 0.25 mg by mouth. dicyclomine (BENTYL) 20 mg tablet ondansetron orally disintegrating (ZOFRAN ODT) 4 mg disintegrating tablet (Patient not taking: Reported on 06/07/2023) guselkumab (TREMFYA) 100 mg/mL Inject 100 mg [...] once a month Drug use: No BP 130/86 Temp (!) 35.9 ?C (96.7 ?F) (Temporal) Resp 16 Wt 97.5 kg (215 lb) BMI 30.85 kg/m? Physical Exam Vitals reviewed. Constitutional: Appearance: Normal appearance. Skin: Neurological: Mental Status: He is alert. ASSESSMENT/PLAN: 1. Abdominal wall cellulitis - ICD9: 682.2, ICD10: L03.311 Infection has almost completely resolved. No new or worsening symptoms - Continue treatment with Cephalaxin (Keflex) - No lymphangetic streaking, this was defined for patient to watch for and to seek medical care immediately if appears - follow-up as needed for any persistent or worsening symptoms Prescription instructions reviewed with patient as applicable. Potential red flag symptoms discussed with the patient. Reviewed appropriate action plan to take if red flag symptoms occur. Patient agreeable to treatment plan. SANTIAGO Solis Naz M, APRN.CNP 07/15/2023 7:13 AM Signed [facility] [phone] Referring Provider: SELF [[id number]] Allergies As of Date: 07/15/2023 Noted Allergy Reaction COMPAZINE (PROCHLORPERAZINE EDISY*06/03/2017 14 - Other: See Comments Comments: Jittery feeling Date Reviewed: 07/15/2023 Reviewed by: Catarina Roberts APRN.CNP - Fully Assessed Reason for Visit: Follow Up [171] Primary Visit Diagnosis:Abdominal wall cellulitis [L03.311] Prescriptions as of 07/15/2023 - ixekizumab (TALTZ AUTOINJECTOR) 80 mg/mL pen Inject 80 mg subcutaneously one time only. - cephALEXin (KEFLEX) 500 mg capsule Take 1 capsule by mouth four times daily for 5 days. - albuterol HFA (VENTOLIN HFA) 90 mcg/actuatio (more content not included)... Normal [facility] CNOVon 07-11-2023 CNOV Office Visit (INTMWS ) ASTON NAPOLES ([id number]) 1975 M Date Time Provider Department 07/11/23 8:40 AM CATARINA ROBERTS INTMWS During your visit today, we recorded the following information about you: Temperature Pulse Respiration Blood pressure 96.6 degrees 96/minute 16/minute 128/84 Weight 97.5 kg Catarina Roberts, TEST RACK OPERATOR.[facility] 07/11/2023 9:20 AM Signed CC: Patient presents with: stomach redness and hot HPI Aston Napoles is a 48 year old male who presents today for above. He noticed a large area of redness with increased warmth on his abdomen this morning. There is some tenderness but denies pain or itching. Does not think he was bitten by anything. No cuts or abrasions that he is aware of. He was recently started on Taltz, first injection was two weeks ago. No injection site reaction noted. He started feeling a little nauseated this morning but denies fever, chills, body aches, malaise. He is due for the next injection tomorrow. 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 02/04/2019 Seasonal allergic rhinitis 02/27/2018 Seizure disorder (HCC) 2001 twice initially, then none on medication for 9 years, weaned off successfully Somnolence, daytime 02/27/2018 PAST SURGICAL HISTORY Procedure Laterality Date APPENDECTOMY 1997 COLONOSCOPY SCREENING N/A 02/17/2023 future colonoscopies need MAC EXCISION PILONIDAL CYST/SINUS SIMPLE INGUINAL HERNIA REPAIR HX Bilateral 1993 1992 and 1993 each side SKIN BIOPSY HX TONSILLECTOMY HX 1979 ALLERGIES Compazine [Prochlorperazine Edisylate] MEDICATIONS ixekizumab (TALTZ AUTOINJECTOR) 80 mg/mL pen Inject 80 mg subcutaneously one time only. albuterol HFA (VENTOLIN HFA) 90 mcg/actuation inhaler Inhale 2 Puffs as instructed every 4 hours as needed for wheezing/shortness of breath. benzonatate (TESSALON PERLES) 100 mg capsule Take 1-2 capsules by mouth three times a day as needed. ALPRAZolam (XANAX) 0.25 mg tablet Take 0.25 mg by mouth. dicyclomine (BENTYL) 20 mg tablet ondansetron orally disintegrating (ZOFRAN ODT) 4 mg disintegrating tablet (Patient not taking: Reported on 06/07/2023) guselkumab (TREMFYA) 100 mg/mL Inject 100 mg [...] once a month Drug use: No BP 128/84 Pulse 96 Temp (!) 35.9 ?C (96.6 ?F) (Temporal) Resp 16 Wt 97.5 kg (215 lb) SpO2 97% BMI 30.85 kg/m? Physical Exam Vitals reviewed. Constitutional: Appearance: He is not ill-appearing. Abdominal: Neurological: Mental Status: He is alert. ASSESSMENT/PLAN: 1. Abdominal wall cellulitis - ICD9: 682.2, ICD10: L03.311 Etiology unclear. Two weeks since last Taltz injection, unlikely to be injection site reaction. Will treat presumptively as cellulitis. - Begin treatment with Cephalaxin (Keflex) x 5 days - No lymphangetic streaking, this was defined for patient to watch for and to seek medical care immediately if appears - Area of cellulitis defined with pen, seek further attention if this area continues to enlarge - Follow up for recheck in three days or sooner if needed Prescription instructions reviewed with patient as applicable. Potential red flag symptoms discussed with the patient. Reviewed appropriate action plan to take if red flag symptoms occur. Patient agreeable to treatment plan. Catarina Roberts APRN.Catarina Hartmann APRN.CARINA 07/11/2023 8:30 AM Signed Let me know in 2-3 days if there is no improvement in redness or sooner if worsening. Referring Provider: SELF [[id number]] Allergies As of Date: 07/11/2023 Noted Allergy Reaction COMPAZINE (PROCHLORPERAZINE EDISY*06/03/2017 14 - Other: See Comments Comments: Jittery feeling Date Revi (more content not included)... Normal [facility] XR CHEST 2V FRONTAL/LATon XR CHEST 2V FRONTAL/LAT * * *Final Report* * * DATE OF EXAM: Jun 15 2023 3:13PM [id number] [id number] - XR CHEST 2V FRONTAL/LAT / PROCEDURE REASON: multiple diagnoses * * * * Physician Interpretation * * * * EXAMINATION: CHEST RADIOGRAPH (2 VIEW FRONTAL and LATERAL) CLINICAL HISTORY: Other infective acute otitis externa of both ears Acute suppurative otitis media of both ears without spontaneous rupture of tympanic membranes, recurrence not specified MQ: [id number] EXAM DATE/TIME: 06/15/2023 3:13 PM COMPARISON: Chest x-ray on 11/28/2019 RESULT: Lines, tubes, and devices: None. Lungs and pleura: No consolidation. No lung mass. No pleural effusion. No pneumothorax. Cardiomediastinal silhouette: Stable cardiac silhouette and mediastinal contour. Bones and soft tissues: There are degenerative changes in the spine. IMPRESSION: No acute radiographic abnormality. Fruit Sprayer: ADIA Transcribe Date/Time: Jun 15 2023 3:27P Dictated by : SILVA HE MD This examination was interpreted and the report reviewed and electronically signed by: SILVA HE MD on Jun 15 2023 3:27PM EST [id number] Normal [facility] XR Chest PA and Lateralon [facility] CNOVon 06-13-2023 CNOV Office Visit (INTMWS ) DONYASTON Ramos ([id number]) 1975 M Date Time Provider Department 06/13/23 1:20 PM EDEL PERDUE INTMWS During your visit today, we recorded the following information about you: Pulse Blood pressure Weight 86/minute 128/86 98 kg Edel Perdue APRN.WAREHOUSE ASSOCIATE 06/16/2023 4:30 PM Addendum SUBJECTIVE Aston Napoles is a 48 year old male . 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 No longer with ear pain or nasal congestion. Still coughing once or twice a day but nearly resolved as well. OBJECTIVE PHYSICAL EXAM: BP 128/86 Pulse 86 Wt 98 kg (216 lb) BMI 30.99 kg/m? General appearance: alert, cooperative, pleasant, in no acute distress Head: Normocephalic Eyes: conjunctiva/corneas normal Oropharynx: moist without lesions Neck: supple and Heart: regular rate Lungs: Breathing easily on room air, no cough or wheeze, good air exchange Last 14 Encounter BP Readings: Date: BP: 06/13/2023 128/86 06/07/2023 144/96 05/02/2023 132/80 02/17/2023 135/81 01/31/2023 130/82 12/16/2022 136/82 11/04/2022 128/82 09/02/2022 126/88 05/17/2022 125/80 01/11/2022 112/80 11/06/2021 132/88 10/26/2021 134/76 09/24/2021 126/74 06/25/2021 114/80 ASSESSMENT/PLAN (R03.0) Elevated blood pressure reading in office without diagnosis of hypertension (primary encounter diagnosis) (Z23) Encounter for immunization (H66.003) Acute suppurative otitis media of both ears without spontaneous rupture of tympanic membranes, recurrence not specified (H60.393) Other infective acute otitis externa of both ears (R05.1) Acute cough (J01.10) Acute non-recurrent frontal sinusitis ASSESSMENT/PLAN: 1. Elevated blood pressure reading in office without diagnosis of hypertension - ICD9: 796.2, ICD10: R03.0 (primary diagnosis) Blood pressure within normal limits 2. Encounter for immunization - ICD9: V03.89, ICD10: Z23 Hepatitis A and B vaccinations today. 3. Acute suppurative otitis media of both ears without spontaneous rupture of tympanic membranes, recurrence not specified - ICD9: 382.00, ICD10: H66.003 4. Other infective acute otitis externa of both ears - ICD9: 380.10, ICD10: H60.393 5. Acute cough - ICD9: 786.2, ICD10: R05.1 6. Acute non-recurrent frontal sinusitis - ICD9: 461.1, ICD10: J01.10 Symptomatically improved, back to baseline except for occasional lingering cough. CXR without concerning findings. Edel Perdue APRN.WAREHOUSE ASSOCIATE Medical Decision Making: Problems: Low: Acute, uncomplicated illness or injury Risk: Moderate: Drug management Medical Decision Making Level: 3 - Low Referring Provider: EDEL PERDUE [[id number]] Allergies As of Date: 06/13/2023 Noted Allergy Reaction COMPAZINE (PROCHLORPERAZINE EDISY*06/03/2017 14 - Other: See Comments Comments: Jittery feeling Date Reviewed: 06/13/2023 Reviewed by: Hannah Mckeon LPN - Fully Assessed Reason for Visit: Blood Pressure [15] Imm/Inj [58] Cmt: Hep A/B Primary Visit Diagnosis:Elevated blood pressure reading in office without diagnosis of hypertension [R03.0] Other Visit Diagnoses:Encounter for immunization [Z23] Acute suppurative otitis media of both ears without spontaneous rupture of tympanic membranes, recurrence not specified [H66.003] Other infective acute otitis externa of both ears [H60.393] Acute cough [R05.1] Acute non-recurrent frontal sinusitis [J01.10] Prescriptions as of 06/16/2023 - ALPRAZolam (XANAX) 0.25 mg tablet Take 0.25 mg by mouth. - dicyclomine (BENTYL) 20 mg tablet - ondansetron orally disintegrating (ZOFRAN ODT) 4 mg disintegrating tablet - guselkumab (TREMFYA) 100 mg/mL Inject 100 mg subcutaneously once every month. - DULoxetine (CYMBALTA) 30 mg capsule Take 1 capsule by mouth once daily. - clotrimazole-betamethasone (LOTRISONE) cream Apply to affected area twice daily as needed. - albuterol HFA (VENTOLIN HFA) 90 mcg/actuation inhaler Inhale 2 Puffs as instructed every 4 hours as needed for wheezing/shortness of breath. - fluticasone (FLONASE) 50 mcg/actuation nasal spray Use 2 Sprays in each nostril once daily. Rinse mouth after use. - COMPOUNDED PRESCRIPTION Increase CPAP setting to 13 cm H2O pressure. Dx: KEYLA - CPAP Initiate CPAP @ 11 cm of water with humidification. Mask (per patient preference) optional chin strap (if indicated) , filters, tubing, humidifier and lifetime supplies. - CETIRIZINE HCL (ZYRTEC ORAL) Take by mouth. Problem List As Of Date 06/13/2023 Noted Resolved Anxiety and depression [F41.9, F32.A] 02/27/2018 Somnolence, daytime [R40.0] 02/27/2018 09/28/2018 Obesity, Class I, BMI 30-34.9 [E66.9] 02/27/2018 Seasonal allergic rhini (more content not included)... Normal [facility] CNOVon 06-07-2023 CNOV Office Visit (INTMWS ) ASTON NAPOLES ([id number]) 1975 M Date Time Provider Department 06/07/23 7:00 AM EDEL PERDUE INTMRAMANA During your visit today, we recorded the following information about you: Pulse Respiration Blood pressure Weight 87/minute 16/minute 144/96 98.4 kg Edel Perdue APRN.[facility] 06/07/2023 7:40 AM Signed SUBJECTIVE Aston Napoles is a 48 year old male who presents with several days of symptoms that are improving. He was on a cruise when he developed otitis externa treated with betamethasone and neomycin drops for both ears. He subsequently developed acute sinusitis treated with Augmentin and prednisolone x 5 days. Today notes feeling improved but not yet back to baseline. Continues with frontal sinus pain, postnasal drip, bilateral ear pain left greater than right, decreased hearing in the left, and productive cough. Initially had fever but not currently. Notes some shortness of breath on exertion. Some fatigue is present. No sore throat. No nausea vomiting or diarrhea. He reports enjoying swimming and has had recurrent otitis in the past. No prior ENT visit. OTC meds/remedies that patient has tried: OTC cold medicine and throat lozenges. OBJECTIVE PHYSICAL EXAM: BP 144/96 Pulse 87 Resp 16 Wt 98.4 kg (217 lb) SpO2 97% BMI 31.14 kg/m? General appearance: alert, cooperative, pleasant, in no acute distress Head: Normocephalic Eyes: conjunctiva/corneas normal Ears: R TM - nl light reflex, erythematous streaking, mild erythema canal, L TM - dull, nl light reflex, erythematous streaking, effusion present, external canal with erythema and material present Nose: purulent rhinorrhea, sinus tenderness over frontal sinuses bilateral Oropharynx: moist without lesions Neck: supple and small, benign anterior cervical nodes bilaterally Heart: regular rate and rhythm, without murmur Lungs: clear to auscultation, without rales or wheeze, good air exchange ASSESSMENT/PLAN (H60.393) Other infective acute otitis externa of both ears (primary encounter diagnosis) (H66.003) Acute suppurative otitis media of both ears without spontaneous rupture of tympanic membranes, recurrence not specified (R05.1) Acute cough (J01.10) Acute non-recurrent frontal sinusitis ASSESSMENT/PLAN: 1. Other infective acute otitis externa of both ears - ICD9: 380.10, ICD10: H60.393 (primary diagnosis) - XR CHEST 2V FRONTAL/LAT - AMOXICILLIN 875 MG-POTASSIUM CLAVULANATE 125 MG TABLET - CONSULT TO ENT 2. Acute suppurative otitis media of both ears without spontaneous rupture of tympanic membranes, recurrence not specified - ICD9: 382.00, ICD10: H66.003 - XR CHEST 2V FRONTAL/LAT - AMOXICILLIN 875 MG-POTASSIUM CLAVULANATE 125 MG TABLET - CONSULT TO ENT 3. Acute cough - ICD9: 786.2, ICD10: R05.1 4. Acute non-recurrent frontal sinusitis - ICD9: 461.1, ICD10: J01.10 - XR CHEST 2V FRONTAL/LAT - AMOXICILLIN 875 MG-POTASSIUM CLAVULANATE 125 MG TABLET - CONSULT TO ENT Otitis externa not yet resolved left ear appearing worse than right, continue with drops x 5 days. Purulent nasal drainage, extend Augmentin 5 days for total of 10 days. Lungs are clear however if shortness of breath on exertion continues despite resolution of other symptoms recommend chest x-ray. He has benzonatate for cough so we will use these in addition to DayQuil. If symptoms of ear pain and decreased hearing does not resolve recommend an ENT visit for further evaluation and treatment. Endorse using swimmer's ear during the summer months when swimming to help avoid swimmer's ear/otitis externa. Recheck BP in 1-4 weeks. Edel Perdue, BETZY.WAREHOUSE ASSOCIATE Medical Decision Making: Problems: Low: Acute, uncomplicated illness or injury Data: Unique test(s) ordered: 1 Risk: Moderate: Drug management Medical Decision Making Level: 3 - Low Allergies As of Date: 06/07/2023 Noted Allergy Reaction COMPAZINE (PROCHLORPERAZINE EDISY*06/03/2017 14 - Other: See Comments Comments: Jittery feeling Date Reviewed: 06/07/2023 Reviewed by: Hannah Mckeon LPN - Fully Assessed Reason for Visit: Sinus Problem [99] Ear Infection [816] Primary Visit Diagnosis:Other infective acute otitis externa of both ears [H60.393] Other Visit Diagnoses:Acute suppurative otitis media of both ears without spontaneous rupture of tympanic membranes, recurrence not specified [H66.003] Acute cough [R05.1] Acute non-recurrent frontal sinusitis [J01.10] Order(s):XR CHEST 2V FRONTAL/LAT [[id number]] Order #: [id number] FUTURE amoxicillin-clavulanate potassium (AUGMENTIN) 875-125 mg per tabletTake 1 tablet by mouth two times a day for 5 days.Disp: 10 tabletRfl: 0 CONSULT TO ENT [9008] Order #: [id number]: 1 FUTURE Prescriptions as of 06/07/2023 - amoxicillin-clavulanate potassium (AUGMENTIN) 875-125 mg per tablet Take 1 tablet by mo (more content not included)... Normal [facility] CNOVon 05-02-2023 CNOV Office Visit (INTMWS ) DONYASTON Ramos ([id number]) 1975 M Date Time Provider Department 05/02/23 5:20 PM FRANCISCO JAVIER OSORIO INTMWS During your visit today, we recorded the following information about you: Temperature Pulse Respiration Blood pressure 97.9 degrees 80/minute 16/minute 132/80 Weight 95.3 kg Francisco Javier Osorio MD 05/02/2023 6:33 PM Signed This note was created using [employer]. Subjective Aston Napoles is a 48 year old male. Abdominal pain and rectal bleeding resolved. Colonoscopy was done and surgical follow up was ongoing for warts. Breast discomfort was better with imaging studies negative for mass. Review of Systems Constitutional: Negative. Gastrointestinal: Negative. Genitourinary: Negative. 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 Objective BP 132/80 (BP Site: Left Arm, BP Position: Sitting, BP Cuff Size: Large Adult) Pulse 80 Temp 36.6 ?C (97.9 ?F) (Temporal) Resp 16 Wt 95.3 kg (210 lb) BMI 30.13 kg/m? Physical Exam Constitutional: Appearance: Normal appearance. Assessment and Plan 1. Abdominal pain, left lower quadrant - ICD9: 789.04, ICD10: R10.32 (primary diagnosis) Resolved. 2. Subareolar mass of left breast - ICD9: 611.72, ICD10: N63.42 Resolved. 3. Need for vaccination - ICD9: V05.9, ICD10: Z23 - HEP A-HEP B VACCINE ([place]) - HEP A-HEP B VACCINE ([place]) - HEP A-HEP B VACCINE ([place]) Francisco Javier Osorio MD Allergies As of Date: 05/02/2023 Noted Allergy Reaction COMPAZINE (PROCHLORPERAZINE EDISY*06/03/2017 14 - Other: See Comments Comments: Jittery feeling Date Reviewed: 05/02/2023 Reviewed by: Rebecca Francisco LPN - Fully Assessed Reason for Visit: F/U 3 Month [443] Primary Visit Diagnosis:Abdominal pain, left lower quadrant [R10.32] Other Visit Diagnoses:Subareolar mass of left breast [N63.42] Need for vaccination [Z23] Order(s):HEP A-HEP B VACCINE ([place]) [[id number]] Order #: [id number] HEP A-HEP B VACCINE ([place]) [[id number]] Order #: [id number] FUTURE HEP A-HEP B VACCINE ([place]) [[id number]] Order #: [id number] FUTURE Prescriptions as of 05/02/2023 - ALPRAZolam (XANAX) 0.25 mg tablet Take 0.25 mg by mouth. - dicyclomine (BENTYL) 20 mg tablet - ondansetron orally disintegrating (ZOFRAN ODT) 4 mg disintegrating tablet - guselkumab (TREMFYA) 100 mg/mL Inject 100 mg subcutaneously once every month. - DULoxetine (CYMBALTA) 30 mg capsule Take 1 capsule by mouth once daily. - clotrimazole-betamethasone (LOTRISONE) cream Apply to affected area twice daily as needed. - albuterol HFA (VENTOLIN HFA) 90 mcg/actuation inhaler Inhale 2 Puffs as instructed every 4 hours as needed for wheezing/shortness of breath. - fluticasone (FLONASE) 50 mcg/actuation nasal spray Use 2 Sprays in each nostril once daily. Rinse mouth after use. - COMPOUNDED PRESCRIPTION Increase CPAP setting to 13 cm H2O pressure. Dx: KEYLA - CPAP Initiate CPAP @ 11 cm of water with humidification. Mask (per patient preference) optional chin strap (if indicated) , filters, tubing, humidifier and lifetime supplies. - CETIRIZINE HCL (ZYRTEC ORAL) Take by mouth. Problem List As Of Date 05/02/2023 Noted Resolved Anxiety and depression [F41.9, F32.A] 02/27/2018 Somnolence, daytime [R40.0] (more content not included)... Normal [facility] CNOVon 02-24-2023 CNOV Office Visit (GENSWS ) ASTON NAPOLES ([id number]) 1975 M Date Time Provider Department 02/24/23 4:00 PM JONATHAN NIELSEN GENLUZMAS During your visit today, we recorded the following information about you: Jonathan Nielsen MD 02/25/2023 3:54 PM Signed Subjective: Patient is status post a colonoscopy [...] I will be using the argon beam environmental quality analyst. I also told him that if there are any warts on the outside that I see then I am going to fulgurate them as well. I spent 10 minutes talking to him and his partner. Referring Provider: JONATHAN NIELSEN [[id number]] Allergies As of Date: 02/24/2023 Noted Allergy Reaction COMPAZINE (PROCHLORPERAZINE EDISY*06/03/2017 14 - Other: See Comments Comments: Jittery feeling Date Reviewed: 02/24/2023 Reviewed by: Caterina Clifton RN - Fully Assessed Reason for Visit: Follow Up [171] Cmt: Review colonoscopy pathology. Primary Visit Diagnosis:Anal warts [A63.0] Prescriptions as of 02/25/2023 - acyclovir (ZOVIRAX) 800 mg tablet Acyclovir Active 800 MG 5 TIMES DAILY November 02, 2018 8:54pm - ALPRAZolam (XANAX) 0.25 mg tablet Take 0.25 mg by mouth. - dicyclomine (BENTYL) 20 mg tablet - ondansetron orally disintegrating (ZOFRAN ODT) 4 mg disintegrating tablet - guselkumab (TREMFYA) 100 mg/mL Inject 100 mg subcutaneously once every month. - DULoxetine (CYMBALTA) 30 mg capsule Take 1 capsule by mouth once daily. - clotrimazole-betamethasone (LOTRISONE) cream Apply to affected area twice daily as needed. - albuterol HFA (VENTOLIN HFA) 90 mcg/actuation inhaler Inhale 2 Puffs as instructed every 4 hours as needed for wheezing/shortness of breath. - fluticasone (FLONASE) 50 mcg/actuation nasal spray Use 2 Sprays in each nostril once daily. Rinse mouth after use. - COMPOUNDED PRESCRIPTION Increase CPAP setting to 13 cm H2O pressure. Dx: KEYLA - CPAP Initiate CPAP @ 11 cm of water with humidification. Mask (per patient preference) optional chin strap (if indicated) , filters, tubing, humidifier and lifetime supplies. - CETIRIZINE HCL (ZYRTEC ORAL) Take by mouth. Problem List As Of Date 02/24/2023 Noted Resolved Anxiety and depression [F41.9, F32.A] 02/27/2018 Somnolence, daytime [R40.0] 02/27/2018 09/28/2018 Obesity, Class I, BMI 30-34.9 [E66.9] 02/27/2018 Seasonal allergic rhinitis [J30.2] 02/27/2018 Elevated blood pressure reading [R03.0] 02/27/2018 09/28/2018 KEYLA (obstructive sleep apnea) [G47.33] 04/13/2018 Recurrent type 2 herpes simplex of other site [*02/04/2019 Abdominal pain, left lower quadrant [R10.32] 02/17/2023 Rectal bleeding [K62.5] 02/17/2023 Encounter Status:Closed by JONATHAN NIELSEN on 02/25/23 Normal [facility] DIAG W AL BILon 2022 [facility] DIAG W [facility] * * *Final Report* * * DATE OF EXAM: Feb 23 2023 3:13PM [id number] [id number] - [facility] DIAG W [place] / PROCEDURE REASON: Subareolar mass of left breast * * * * Physician Interpretation * * * * RESULT: #[id number] - [facility] DIAG W [place] #[id number] - [facility] US BREAST LTD LT MALE BILATERAL DIGITAL DIAGNOSTIC MAMMOGRAM TOMOSYNTHESIS WITH CAD: 02/23/2023 HISTORY: Subareolar Mass Of Left Breast /priors available for comparison Subareolar Mass Of Left Breast. RESULT: TECHNIQUE: The study was acquired using full field digital technology and interpreted from soft copy. Digital Breast Tomosynthesis (DBT) images were obtained and used to assist in the interpretation of this examination. Current study was also evaluated with a Computer Aided Detection (CAD). Comparison is made to exam dated: 06/12/2019 mammogram - [facility]. No significant masses, calcifications, or other findings are seen in either breast. IMPRESSION: INCOMPLETE: NEEDS ADDITIONAL IMAGING EVALUATION There is no abnormality seen in the left breast to correspond with the palpable abnormality, however, ultrasound is recommended. LIMITED ULTRASOUND OF LEFT BREAST: 02/23/2023 RESULT: Comparison is made to exam dated: 06/12/2019 mammogram - [facility]. Color flow and real-time ultrasound of the left breast were performed. Plaza scale images of the real-time examination were reviewed. IMPRESSION: NEGATIVE There is no sonographic evidence of malignancy. There is no abnormality seen in the left breast to correspond with the palpable abnormality, however, clinical correlation is recommended. Jaxson gonzales/mario:02/23/2023 15:42:10 Multiple national specialty organizations have released breast cancer screening guidelines for women at average risk for developing breast cancer - guidelines that are based on both evidence and opinion, yet differ on when to start and how often to screen for breast cancer. With representation from Breast Imaging, Internal Medicine, Women's Health, Family Medicine, and Medical/Surgical Oncology, the [facility] has carefully reviewed the data and reached the following consensus: 1) All women should engage in shared decision-making with their providers to decide when to start and how often to screen; 2) All women should have the opportunity to start screening mammography at age 40; 3) For women ages 45-55, we recommend annual screening mammograms; 4) For women ages 55 and over, we support both the transition from an annual to a biennial interval if this aligns more with patient's values and preferences, or continuation with annual screening; 5) All women should discuss with their providers when to stop screening mammograms. Graphics Manager(s): Monica Godoy, [facility]; RT Emiliano(R)(M), [facility] OVERALL STUDY BIRADS: 1 Negative Fruit Sprayer: Mario Transcribe Date/Time: Feb 23 2023 2:47P Dictated by: JAXSON RAYMOND MD This examination was interpreted and the report reviewed and electronically signed by: JAXSON RAYMOND MD on Feb 23 2023 3:42PM EST [id number] Normal [facility] WILLIAN DIAG W AL BILATERALon 02-23-2023 [facility] US BREAST LTD LTon 02-23 WILLIAN US BREAST LTD LT * * *Final Report* * * DATE OF EXAM: Feb 23 2023 3:37PM WRU 0593 - WILLIAN US BREAST LTD LT / PROCEDURE REASON: Subareolar mass of left breast * * * * Physician Interpretation * * * * #[id number] - WILLIAN DIAG W AL ROSA #[id number] - [facility] US BREAST LTD LT MALE BILATERAL DIGITAL DIAGNOSTIC MAMMOGRAM TOMOSYNTHESIS WITH CAD: 02/23/2023 HISTORY: Subareolar Mass Of Left Breast /priors available for comparison Subareolar Mass Of Left Breast. RESULT: TECHNIQUE: The study was acquired using full field digital technology and interpreted from soft copy. Digital Breast Tomosynthesis (DBT) images were obtained and used to assist in the interpretation of this examination. Current study was also evaluated with a Computer Aided Detection (CAD). Comparison is made to exam dated: 06/12/2019 mammogram - [facility]. No significant masses, calcifications, or other findings are seen in either breast. IMPRESSION: INCOMPLETE: NEEDS ADDITIONAL IMAGING EVALUATION There is no abnormality seen in the left breast to correspond with the palpable abnormality, however, ultrasound is recommended. LIMITED ULTRASOUND OF LEFT BREAST: 02/23/2023 RESULT: Comparison is made to exam dated: 06/12/2019 mammogram - [facility]. Color flow and real-time ultrasound of the left breast were performed. Plaza scale images of the real-time examination were reviewed. IMPRESSION: NEGATIVE There is no sonographic evidence of malignancy. There is no abnormality seen in the left breast to correspond with the palpable abnormality, however, clinical correlation is recommended. Jaxson gonzales/mario:02/23/2023 15:42:10 Multiple national specialty organizations have released breast cancer screening guidelines for women at average risk for developing breast cancer - guidelines that are based on both evidence and opinion, yet differ on when to start and how often to screen for breast cancer. With representation from Breast Imaging, Internal Medicine, Women's Health, Family Medicine, and Medical/Surgical Oncology, the [facility] has carefully reviewed the data and reached the following consensus: 1) All women should engage in shared decision-making with their providers to decide when to start and how often to screen; 2) All women should have the opportunity to start screening mammography at age 40; 3) For women ages 45-55, we recommend annual screening mammograms; 4) For women ages 55 and over, we support both the transition from an annual to a biennial interval if this aligns more with patient's values and preferences, or continuation with annual screening; 5) All women should discuss with their providers when to stop screening mammograms. Graphics Manager(s): Monica Godoy, [facility]; Ham Miller RT(R)(M), [facility] OVERALL STUDY BIRADS: 1 Negative Fruit Sprayer: Mario Transcribe Date/Time: Feb 23 2023 2:47P Dictated by : JAXSON RAYMOND MD This examination was interpreted and the report reviewed and electronically signed by: JAXSON RAYMOND MD on Feb 23 2023 3:42PM EST [id number] Normal [facility] US BREAST LTD LEFTon [address] [facility] COLONOSCOPY DIAGNOSTICon [facility] Colonoscopyon 02-17-2023 Colonoscopy [place] [facility] Gastrointestinal Endoscopy Patient Name: Aston Napoles Procedure Date: 02/17/2023 8:27 AM Date of : 1975 Admit Type: Outpatient Age: 48 Gender: Male Note Status: Finalized Procedure: Colonoscopy Indications: Evaluation of unexplained GI bleeding presenting with Hematochezia, Abdominal pain in the left lower quadrant Providers: Jonathan Nielsen MD Patient Profile: This is a 48 year old male. Refer to note in patient chart for documentation of history and physical. Last Colonoscopy: none. The patient's first colonoscopy is today. Referring Physician: Jonathan Nielsen MD (Referring MD), Francisco Javier Osorio (Referring ) Medicines: Fentanyl 100 micrograms IV, Midazolam 7 mg IV, Meperidine 50 mg IV, Diphenhydramine 50 mg IV Complications: No immediate complications. Estimated blood loss: Minimal. Requesting Provider: Procedure: Pre-Anesthesia Assessment: - Prior to the procedure, a History and Physical was performed, and patient medications and allergies were reviewed. The patient's tolerance of previous anesthesia was also reviewed. The risks and benefits of the procedure and the sedation options and risks were discussed with the patient. All questions were answered, and informed consent was obtained. Prior Anticoagulants: The patient has taken no anticoagulant or antiplatelet agents. ASA Grade Assessment: II - A patient with mild systemic disease. After reviewing the risks and benefits, the patient was deemed in satisfactory condition to undergo the procedure. After I obtained informed consent, the scope was passed under direct vision. Throughout the procedure, the patient's blood pressure, pulse, and oxygen saturations were monitored continuously. The Colonoscope was introduced through the anus and advanced to the cecum, identified by appendiceal orifice and ileocecal valve. The colonoscopy was performed without difficulty. The patient tolerated the procedure well. The quality of the bowel preparation was good. The ileocecal valve, appendiceal orifice, and rectum were photographed. Moderate Sedation: The administration of moderate sedation was initiated at 08:35 AM. Moderate (conscious) sedation was personally administered by the endoscopist. The following parameters were monitored: oxygen saturation, heart rate, blood pressure, respiratory rate, EKG, adequacy of pulmonary ventilation, and response to care. Total physician intraservice time was 26 minutes. Findings: The perianal and digital rectal examinations were normal. A localized area of granular mucosa was found in the rectum. Biopsies were taken with a cold forceps for histology. Many small-mouthed diverticula were found in the sigmoid colon. Non-bleeding internal hemorrhoids were found during retroflexion. The hemorrhoids were mild and small. The exam was otherwise without abnormality. Impression: - Granularity in the rectum. Biopsied. - Diverticulosis in the sigmoid colon. - Non-bleeding internal hemorrhoids. - The examination was otherwise normal. Recommendation: - Patient has a contact number available for emergencies. The signs and symptoms of potential delayed complications were discussed with the patient. Return to normal activities tomorrow. Written discharge instructions were provided to the patient. - Resume previous diet. - Continue present medications. - Await pathology results. - Repeat colonoscopy date to be determined after pending pathology results are reviewed for surveillance based on pathology results. NEXT C-SCOPE TO BE A MAC! - Return to my office in 1 week. Procedure Code(s): --- Professional --- 10406, Colonoscopy, flexible; with biopsy, single or multiple 96221, Moderate sedation; each additional 15 minutes intraservice time G0500, Moderate sedation services provided by the same physician or other qualified health healthcare financial analyst performing a gastrointestinal endoscopic service that sedation supports, requiring the presence of an independent trained observer to assist in the monitoring of the patient's level of consciousness and physiological status; initial 15 minutes of intra-service time; patient age 5 years or older (additional time may be reported with 29308, as appropriate) Diagnosis Code(s): --- Professional --- K62.89, Other specified diseases of anus and rectum K64.8, Other hemorrhoids K92.1, Melena (includes Hematochezia) R10.32, Left lower quadrant pain K57.30, Diverticulosis of large intestine without perforation or abscess without bleeding CPT copyright 2021 [employer]. All rights reserved. The codes documented in this report are preliminary and upon long wall mining machine tender review may be revised to meet current compliance requirements. Attending Participation: I personally performed the entire procedure. Scope In: 8:39:57 AM Scope Out: 9:01:[address] Castillo (more content not included)... Normal [facility] HISTORY PHYSICALon HISTORY PHYSICAL HNO ID: [id number] Author: Jonathan Nielsen MD Service: General Surgery Author Type: Physician Type: HANDP Filed: 02/17/2023 8:34 AM Note Text: HISTORY AND PHYSICAL Aston Napoles 1975 REFERRING PHYSICIAN: Francisco Javier Osorio MD CHIEF COMPLAINT: Consult (LLQ abdominal pain/ [...] at the request of Dr. Francisco Javier Osorio MD for my opinion and advice regarding [...] entered by the nurse and reviewed by ma Nursing Notes: Reyna Worthington LPN 02/01/2023 3:58 [...] infections, and denies bloody urine. Skin: The pat (more content not included)... Normal [facility] NURSING PROGon 02-17-2023 NURSING PROG HNO ID: [id number] Author: Nicole Pendleton RN Service: ? Author Type: Registered Nurse Type: Nursing Progress Note Filed: 02/17/2023 9:20 AM Note Text: Arrived in phase II via cart. Left lateral position. Sedated, but responds to verbal stimuli. Color normal; skin warm and dry. Respirations wnl and unlabored. Abdomen soft and with + bowel sounds in quads X 4. Patient resting comfortably. Dr. Nielsen at bedside to review procedure and recommendations. Nicole Pendleton RN Normal [facility] SURGICAL PATHOLOGYon 023 CASE REPORT Normal [facility] Comment on above: Order Comment: Speci men Type: TISSUE SPECIMENOrdering Facility: [facility] Address: [address] [place] [address] Result Comment: Surg [facility] Pathology Report Case: [id number] Authorizing Provider: Jonathan Nielsen MD Collected: 02/17/2023 08:59 AM Ordering Location: Ambulatory Surgery Received: 02/17/2023 01:56 PM Pathologist: Lisa Loomis MD Specimen: RECTAL BIOPSY Performed By: #### S ####[facility] LABCLIA [id number] [place] DIAGNOSIS COMMENT Normal [facility] Comment on above: Order Comment: Speci men Type: TISSUE SPECIMENOrdering Facility: [facility] Address: [address] [place] [address] Result Comment: The biopsy consists of rectal and squamous [...] 6, 11, 40, 42, 43, and 44. Laboratory Developed Test (LDT) Disclaimer: Performance characteristics of immunohistochemical, immunofluorescent and chromogenic in-situ hybridization tests have been determined by the performing laboratory within [facility]???s [facility] Pathology and Laboratory Medicine [place] ([facility], [facility], [facility], [facility], [facility], Counts Include [facility], or [facility]) in a manner consistent with CLIA requirements. One or more of these tests have not been cleared or approved by the FDA. [facility] is regulated under CLIA as qualified to perform high-complexity testing. These tests are used for clinical purposes. They should not be regarded as investigational or for research. Positive and negative controls stain appropriately. Performed By: #### S ####[facility] LABCLIA [id number] [address] OF [facility] FINAL DIAGNOSIS Normal [facility] Comment on above: Order Comment: Speci men Type: TISSUE SPECIMENOrdering Facility: [facility] Address: [address] [place] [address] Result Comment: A. R ectum, biopsy: - High-grade squamous intraepithelial lesion (H-FRAN). AEB/herberth 02/21/2023 Performed By: #### S ####[facility] LABCLIA [id number] [address] [place] FINAL PERFORMING LAB Normal [facility] Comment on above: Order Comment: Speci men Type: TISSUE SPECIMENOrdering Facility: [facility] Address: [address] [place] [address] Result Comment: Diag nostic interpretation performed at [facility], [address] [place] [address] CLIA# [id number] Insulation Manager: Delta Garibay M.D. Performed By: #### S ####[facility] LABCLIA [id number] [address] [place] GROSS DESCRIPTION Normal [facility] Comment on above: Order Comment: Speci men Type: TISSUE SPECIMENOrdering Facility: [facility] Address: [address] [place] [address] Result Comment: A. R ECTAL BIOPSY Received in formalin are two pieces of rosario-brown, soft tissue aggregating to 1.1 x 0.2 x 0.2 cm. Totally submitted in one cassette. Gross examination performed at [facility], [address] [place] [address] February 18, 2023 1:42 AM Performed By: #### S ####[facility] LABCLIA [id number] [address] OF [place] CNOVon 02-01-2023 CNOV Office Visit (GENSWS ) ASTON NAPOLES ([id number]) 1975 M Date Time Provider Department 02/01/23 3:45 PM JONATHAN NIELSEN During your visit today, we recorded the following information about you: Reyna Worthington LPN 02/01/2023 3:58 PM Signed [...] screening? N/A Last Colonoscopy: no prior colonoscopy COCO Vazquez Daniel P, MD 02/01/2023 3:56 PM Signed Bowel Preparation Instructions for: Golytely, Nulytely, Trilyte or Colyte (polyethylene glycol 3350 and electrolytes) IF YOU DO NOT FOLLOW THESE DIRECTIONS, YOUR COLONOSCOPY WILL BE CANCELLED. [place] Instructions: Your bowel must be empty so [...] If you do not have a responsible motorcoach driver (family member or friend) with you [...] preparation solution at your local pharmacy or [facility]. 1 03/2019 Bowel Preparation Instructions for: Golytely, Nulytely, Trilyte or Colyte (polyethylene glycol 3350 and electrolytes) Three (3) Days Before Your Colonoscopy Do NOT eat high-fiber foods (more content not included)... Normal [facility] XR Abdomen Supine and Uprigh ton 07-01-2020 IMPRESSION: Nonobstr uctive bowel gas pattern. Fruit Sprayer: ADIA Transcribe Date/Time: Jul 01 2020 9:30A Dictated by : SILVA HE MD This examination was interpreted and the report reviewed and electronically signed by: SILVA HE MD on Jul 01 2020 9:31AM [facility] DIVISION OF RADIOLOGY * * *Final Report* * * DATE OF EXAM: Jul 01 2020 9:28AM WOX [id number] - XR ABD 2V SUPINE W UPR/DECUB/CTL / PROCEDURE REASON: multiple diagnoses * * * * Physician Interpretation * * * * EXAM TITLE: XR ABD 2V SUPINE W UPR/DECUB/CTL EXAM DATE/TIME: 07/01/2020 9:28 AM COMPARISON: None. CLINICAL INDICATION/HISTORY: Constipation. TECHNIQUE: AP views of the abdomen are presented. FINDINGS: No abnormally dilated bowel loops identified. Some fecal retention is noted. There are no abnormal calcifications. The bony structures appear intact. DIVISION OF RADIOLOGY Provider, [facility] - 07/01/2020 * * *Final Report* * * DATE OF EXAM: Jul 01 2020 9:28AM WOX [id number] - XR ABD 2V SUPINE W UPR/DECUB/CTL / PROCEDURE REASON: multiple diagnoses * * * * Physician Interpretation * * * * EXAM TITLE: XR ABD 2V SUPINE W UPR/DECUB/CTL EXAM DATE/TIME: 07/01/2020 9:28 AM COMPARISON: None. CLINICAL INDICATION/HISTORY: Constipation. TECHNIQUE: AP views of the abdomen are presented. FINDINGS: No abnormally dilated bowel loops identified. Some fecal retention is noted. There are no abnormal calcifications. The bony structures appear intact. IMPRESSION IMPRESSION: Nonobstructive bowel gas pattern. Fruit Sprayer: ADIA Transcribe Date/Time: Jul 01 2020 9:30A Dictated by : SILVA HE MD This examination was interpreted and the report reviewed and electronically signed by: SILVA HE MD on Jul 01 2020 9:31AM EST [facility] Radiology Study observation (narrative) [facility] XR Abdomen Supine and Uprigh tOrdered By: [facility] Provider on 07-01-2020 [facility] Repor ton 03-30-2017 [facility] Report Type: OrthopedicDictated by: To be signed by: Transcribed by: Transcribed D/ Dictation D/ Report: March 24, 2017 Nicolás Bell PA-C [address] [place] [address] Dear Jed Monzon is a 42 year old white male who presents to the office today with the chief complaint of left shoulder pain that he has had for two months. He denies an injury but it did start after he was moving and is not sure if he just too much and got it flared up but at this point he has significant stiffness. He is not able to move it at all. Reaching overhead and behind his back is impossible. He denies any weakness, although he does state that the pain inhibits him. He does have some neck stiffness but no real neck pain to speak of. He does get some numbness and tingling as well, although he states that does seem to be improving some. He did seek chiropractic therapy which was not helpful. He was given prednisone by the ER and states that did not help him at all and, in fact, seemed to make his symptoms worse. He is right-hand dominant. His intake sheet and past medical history have been reviewed. He has a history of anxiety and hernia. On exam, he is 5'9 tall, weighs 86.9 kilograms. Temperature is 97.9. He is awake, alert, and oriented times three. Exam of his left shoulder demonstrates significantly limited range of motion. He has really 10 degrees of forward flexion actively and passively he will not allow me to go any further beyond that. He has no external rotation. Internal rotation he also is not able to perform. He has diffuse tenderness about his shoulder. Impingement maneuvers and crossover maneuvers are not able to be assessed. His rotator cuff strength is 5/5 with internal and external rotation. Empty can sign is not able to be performed. He has sensation intact to light touch. Brisk capillary refill. Skin is warm and dry. DIAGNOSTIC STUDIES: Radiographs of his shoulder previously done at the hospital demonstrate significant hooking of his acromion which does lead to some decreased subacromial space; however, the glenohumeral joint is well-aligned. The AC joint appears to be normal. No evidence of fracture, dislocation, or other bony abnormality. ASSESSMENT: Left shoulder adhesive capsulitis. PLAN: I have discussed the options with him. At this point, I do think therapy is certainly necessary. I did offer him a steroid injection to try to help his pain. he is in agreement with that. Informed consent was obtained. Risks and benefits discussed. Aseptically, the left glenohumeral joint was injected by myself using 80 mg of Depo-Medrol and a combination of local anesthetics. He tolerated the procedure well. He already has a prescription for tramadol; he can use that for postprocedural pain as well as anti-inflammatories and I will see him back in two months' time to see how he has done with that. If he does continue to struggle, it may be necessary to get an MRI. Thank you for allowing me to participate in your patient's care. This note was dictated by Janes Benitez PA-C. Sincerely, Annie Tinsley M.D.Copies to Physicians(s): Normal [facility] ED NOTEon 03-21-2017 [facility] NOTES Normal [facility] NOT[facility] Normal [facility] ED PROVIDERon 03-21-2017 [facility] NOTES Normal [facility] PROCEDUREon 03-18-2017 [facility] NOTES Normal [facility] PROGRESSon 03-15-2017 [facility] NOTES Normal [facility] Certificatioon 03-11-2017 [facility] HIM CAC NOTES Normal [facility] DISCH SUMMon 03-11-2017 [facility] NOTES Normal [facility] HISTORY AND PHYSICALon 03-11 [facility] NOTES Normal [facility] ISTAT TROPONIN Ion 7 Troponin I.cardiac mass conc ng/mL Normal 0-0.08 [facility] Comment on above: Performed By: #### A CBC, DDIMER, CHEM7F ####Testing performed at [address] [address] Troponin I.cardiac mass conc ng/mL Normal 0-0.08 [facility] Comment on above: Performed By: #### A CBC, DDIMER, CHEM7F ####Testing performed at [address] [address] NURSING NOTEon 03-11-2017 [facility] NOTES Normal [facility] NOT[facility] Normal [facility] NOT[facility] Normal [facility] NOTES Normal [facility] PLAN OF CAREon 03-11-2017 [facility] NOTES Normal [facility] PROGRESSon 03-11-2017 [facility] NOTES Normal [facility] XR SHOULDER LEFT MIN 2 VIEWS on 03-11-2017 Thyroid stimulating hormone (TSH) SHOULDER SERIES: CLINICAL HISTORY: Left shoulder pain.COMPARISON: Chest x-ray 03/10/2017. FINDINGS: Three views of the left shoulder are submitted. There is no acute fracture or dislocation. Bone mineralization is normal. The left clavicle, scapula, acromion, glenoid, proximal humerus, and coracoid process are all intact. The AC joint and glenohumeral articulation appear intact.IMPRESSION: 1. Normal alignment. 2. No acute osseous injury. Normal [facility] CBCon 03-10-2017 ABSOLUTE BAS 0.0 X10 Normal [facility] Comment on above: Performed By: #### A CBC, DDIMER, CHEM7F ####Testing performed at [address] [address] ABSOLUTE EOS 0.10 X10 Normal [facility] Comment on above: Performed By: #### A CBC, DDIMER, CHEM7F ####Testing performed at [address] [address] Basophils/100 WBC Auto (Bld) 0.2 % Normal 0.0-2.0 [facility] Comment on above: Performed By: #### A CBC, DDIMER, CHEM7F ####Testing performed at [address] [address] DTYPE AUTO DIFF Normal [facility] Comment on above: Performed By: #### A CBC, DDIMER, CHEM7F ####Testing performed at [address] [place] [address] Eosinophils/100 leukocytes 0.7 % Normal 0.0-11.0 [facility] Comment on above: Performed By: #### A CBC, DDIMER, CHEM7F ####Testing performed at [address] [address] Lymphocytes 2.10 X10 Normal [facility] Comment on above: Performed By: #### A CBC, DDIMER, CHEM7F ####Testing performed at [address] [address] Lymphocytes/100 leukocytes 13.9 % Low 20.0-55.0 [facility] Comment on above: Performed By: #### A CBC, DDIMER, CHEM7F ####Testing performed at [address] [address] Monocytes 0.6 X10 Normal [facility] Comment on above: Performed By: #### A CBC, DDIMER, CHEM7F ####Testing performed at [address] [address] Monocytes/100 leukocytes 3.8 % Normal 0.0-10.0 [facility] Comment on above: Performed By: #### A CBC, DDIMER, CHEM7F ####Testing performed at [address] [address] Neutrophils 12.5 x10 High 1.0-7.0 [facility] Comment on above: Performed By: #### A CBC, DDIMER, CHEM7F ####Testing performed at [address] [address] Neutrophils/100 leukocytes 81.4 % High 37.0-75.0 [facility] Comment on above: Performed By: #### A CBC, DDIMER, CHEM7F ####Testing performed at [address] [address] Erythrocyte distribution width Auto Ratio (RBC) 13.3 % Normal 11.5-14.5 [facility] Comment on above: Performed By: #### A CBC, DDIMER, CHEM7F ####Testing performed at [address] [address] Erythrocytes (RBC) 5.62 /cmm Normal 4.0-6.1 [facility] Comment on above: Performed By: #### A CBC, DDIMER, CHEM7F ####Testing performed at [place] [id number] Hematocrit (HCT) 48.4 % Normal 42.0-52.0 [facility] Comment on above: Performed By: #### A CBC, DDIMER, CHEM7F ####Testing performed at [place] [id number] Hemoglobin mass conc (Bld) 16.4 g/dL Normal 14.0-18.0 [facility] Comment on above: Performed By: #### A CBC, DDIMER, CHEM7F ####[place] [address] MCH 29.1 pg Normal 26.0-35.0 [facility] Comment on above: Performed By: #### A CBC, DDIMER, CHEM7F ####Testing performed at [place] [id number] MCHC mass conc (RBC) 33.8 g/dL Normal 27.0-37.0 [facility] Comment on above: Performed By: #### A CBC, DDIMER, CHEM7F ####Testing performed at [place] [id number] MCV 86.1 fL Normal 80.0-100.0 [facility] Comment on above: Performed By: #### A CBC, DDIMER, CHEM7F ####Testing performed at [place] [id number] Platelet mean volume (PMV) 7.4 fL Normal 7.4-11.0 [facility] Comment on above: Performed By: #### A CBC, DDIMER, CHEM7F ####Testing performed at [place] [id number] Platelets 372 /cmm Normal 130.0-400.0 [facility] Comment on above: Performed By: #### A CBC, DDIMER, CHEM7F ####Testing performed at [place] [id number] WBC (Leukocytes) 15.4 /cmm High 3.6-11.0 [facility] Comment on above: Performed By: #### A CBC, DDIMER, CHEM7F ####Testing performed at [place] [id number] CHEM 7 FASTINGon 03-10-2017 BUN (urea nitrogen) 20 mg/dL Normal 7-20 [facility] Comment on above: Performed By: #### A CBC, DDIMER, CHEM7F ####Testing performed at [place] [id number] Creatinine 1.0 mg/dL Normal 0.66-1.25 [facility] Comment on above: Performed By: #### A CBC, DDIMER, CHEM7F ####[place] [address] eGFR (non-black) mL/min/{1.73_m2} Normal [facility] Comment on above: Performed By: #### A CBC, DDIMER, CHEM7F ####[place] [address] eGFR (non-black) Average GFR for 40-4 9 years old = 99. Normal [facility] Comment on above: Result Comment: Radiologist Physician naif Kidney disease, GFR = <60.Kidney failure, GFR = <15.The GFR estimate is not adjusted for extreme body surface area or acute process, nor has it been validated for women or ethnic groups other than and . Performed By: #### A CBC, DDIMER, CHEM7F ####Testing performed at [place] [id number] Chloride 100 mmol/L Normal 98-107 [facility] Comment on above: Performed By: #### A CBC, DDIMER, CHEM7F ####Testing performed at [place] [id number] CO2 25 mmol/L Normal 22-30 [facility] Comment on above: Performed By: #### A CBC, DDIMER, CHEM7F ####Testing performed at [place] [id number] Glucose mass conc 126 mg/dL High 70-100 [facility] Comment on above: Result Comment: NORM AL <100 mg/dLPREDIABETES 101-126 mg/dLDIABETES 126 mg/dL or higher Performed By: #### A CBC, DDIMER, CHEM7F ####[place] [address] Potassium molar conc 3.3 mmol/L Low 3.5-5.1 [facility] Comment on above: Performed By: #### A CBC, DDIMER, CHEM7F ####[place] [address] Sodium 137 mmol/L Normal 137-145 [facility] Comment on above: Performed By: #### A CBC, DDIMER, CHEM7F ####[place] [address] D DIMERon 03-10-2017 D DIMER <0.27 Normal <0.56 [facility] Comment on above: Result Comment: If r esult is greater than the cutoff value of 0.56 mg/L then the potential for PE or DVT exists. Other conditions exist which may cause a falsely elevated level. Please correlate clinically, including radiological findings and other clinical parameters. Performed By: #### A CBC, DDIMER, CHEM7F ####[place] [address] ED NOTEon 03-10-2017 [facility] NOTES Normal [facility] NOTES Normal [facility] NOTES Normal [facility] NOTES Normal [facility] NOTES Normal [facility] ED PROVIDERon 03-10-2017 [facility] NOTES Normal [facility] ISTAT TROPONIN Ion 7 Troponin I.cardiac mass conc ng/mL Normal 0-0.08 [facility] Comment on above: Performed By: #### A CBC, DDIMER, CHEM7F ####[place] [address] Troponin I.cardiac mass conc ng/mL Normal 0-0.08 [facility] Comment on above: Performed By: #### I TROT ####Testing performed at [place] [id number] MRSA SCREENon 03-10-2017 MRSA SCREEN Negative Normal [facility] Comment on above: Performed By: #### A CBC, DDIMER, CHEM7F ####Testing performed at [address] [address] [employer] SCREEN Negative Normal [facility] Comment on above: Result Comment: TEST ING PERFORMED BY PCR Performed By: #### A CBC, DDIMER, CHEM7F ####Testing performed at [place] [id number] NURSING NOTEon 03-10-2017 [facility] NOTES Normal [facility] PLAN OF CAREon 03-10-2017 [facility] NOTES Normal [facility] NOTES Normal [facility] XR CHEST PA AND LATERALon XR CHEST PA AND LATERAL PROCEDURE: FRONTAL AND LATERAL CHEST RADIOGRAPHS, 03/10/2017 12:23 PM CLINICAL HISTORY: Chest pain today.TECHNIQUE: 2 views, 2 images.COMPARISON: Two-view chest radiograph 06/03/2016RESULT: Aside from minimal left basilar atelectasis. Overall appearance of the chest is unchanged. Cardiac silhouette and pulmonary vascularity are within normal limits. Lungs are symmetrically inflated and otherwise clear. There is no pleural effusion or pneumothorax. Redemonstrated are multilevel degenerative changes of the thoracolumbar spine.IMPRESSION: No acute cardiopulmonary process. Normal [facility] PROGRESSon 01-24-2017 [facility] NOTES Normal [facility] Vital Signs Date Time Vital Sign Value Performing Clinician Facility 01-30-2024 17:46-0400 Body mass index (BMI) [Ratio] 33.41 kg/m2 Francisco Javier Osorio MD Work Phone: [facility] 01-30-2024 17:46-0400 Body temperature 97.9 [degF] Francisco Javier Osorio MD Work Phone: [facility] 01-30-2024 17:46-0400 Body weight 99.2 kg Francisco Javier Osorio MD Work Phone: [facility] 01-30-2024 17:46-0400 Diastolic blood pressure 76 mm[Hg] Francisco Javier Osorio MD Work Phone: [facility] 01-30-2024 17:46-0400 Heart rate 100 /min Francisco Javier Osorio MD Work Phone: [facility] 01-30-2024 17:46-0400 Respiratory rate 16 /min Francisco Javier Osorio MD Work Phone: [facility] 01-30-2024 17:46-0400 SaO2% (BldA) [Mass fraction] 96 % Francisco Javier Osorio MD Work Phone: [facility] 01-30-2024 17:46-0400 Systolic blood pressure 125 mm[Hg] Francisco Javier Osorio MD Work Phone: [facility] 01-23-2024 09:19-0400 Body height 172.3 cm Jonathan Foster APRN.[facility], DNP Work Phone: [facility] 01-23-2024 09:19-0400 Body mass index (BMI) [Ratio] 33.92 kg/m2 Jonathan Foster APRN.SENIOR CONTRACT SPECIALIST, DNP Work Phone: [facility] 01-23-2024 09:19-0400 Body temperature 97 [degF] Jonathan Foster APRN.[facility], DNP Work Phone: [facility] 01-23-2024 09:19-0400 Body weight 100.7 kg Jonathan Foster APRN.SENIOR CONTRACT SPECIALIST, DNP Work Phone: [facility] 01-23-2024 09:19-0400 Diastolic blood pressure 88 mm[Hg] Jonathan Foster APRN.SENIOR CONTRACT SPECIALIST, DNP Work Phone: [facility] 01-23-2024 09:19-0400 Heart rate 96 /min Jonathan Foster APRN.SENIOR CONTRACT SPECIALIST, DNP Work Phone: [facility] 01-23-2024 09:19-0400 Respiratory rate 14 /min Jonathan Foster APRN.SENIOR CONTRACT SPECIALIST, DNP Work Phone: [facility] 01-23-2024 09:19-0400 SaO2% (BldA) [Mass fraction] 97 % Jonathan Foster APRN.S[employer]IOR CONTRACT SPECIALIST, DNP Work Phone: [facility] 01-23-2024 09:19-0400 Systolic blood pressure 140 mm[Hg] Jonathan Foster APRN.SENIOR CONTRACT SPECIALIST, DNP Work Phone: [facility] 01-20-2024 07:38-0400 Body height 179.1 cm [facility] 2 Work Phone: [facility] Comment on above: pt reported 01-20-2024 07:38-0400 Body mass index (BMI) [Ratio] 31.26 kg/m2 [facility] 2 Work Phone: [facility] 01-20-2024 07:38-0400 Body weight 100.25 kg [facility] 2 Work Phone: [facility] Comment on above: pt reported 01-19-2024 13:43-0400 Body height 179.1 cm Crystal Birmingham PA-C Work Phone: [facility] 01-19-2024 13:43-0400 Body mass index (BMI) [Ratio] 31.26 kg/m2 Crystal Birmingham PA-C Work Phone: [facility] 01-19-2024 13:43-0400 Body weight 100.25 kg Crystal Birmingham PA-C Work Phone: [facility] 01-19-2024 13:43-0400 Diastolic blood pressure 93 mm[Hg] Crystal Birmingham PA-C Work Phone: [facility] 01-19-2024 13:43-0400 Heart rate 96 /min Crystal Birmingham PA-C Work Phone: [facility] 01-19-2024 13:43-0400 Respiratory rate 16 /min Crystal Birmingham PA-C Work Phone: [facility] 01-19-2024 13:43-0400 Systolic blood pressure 141 mm[Hg] Crystal Birmingham PA-C Work Phone: [facility] 01-09-2024 15:18-0400 Body height 179.1 cm Jonathan Nielsen MD Work Phone: [facility] 01-09-2024 15:18-0400 Body mass index (BMI) [Ratio] 31.29 kg/m2 Jonathan Nielsen MD Work Phone: [facility] 01-09-2024 15:18-0400 Body temperature 97.5 [degF] Jonathan Nielsen MD Work Phone: [facility] 01-09-2024 15:18-0400 Body weight 100.34 kg Jonathan Nielsen MD Work Phone: [facility] 01-09-2024 15:18-0400 Diastolic blood pressure 87 mm[Hg] Jonathan Nielsen MD Work Phone: [facility] 01-09-2024 15:18-0400 Heart rate 95 /min Jonathan Nielsen MD Work Phone: [facility] 01-09-2024 15:18-0400 SaO2% (BldA) [Mass fraction] 99 % Jonathan Nielsen MD Work Phone: [facility] 01-09-2024 15:18-0400 Systolic blood pressure 118 mm[Hg] Jonathan Nielsen MD Work Phone: [facility] 12-19-2023 09:27-0400 Body mass index (BMI) [Ratio] 33 kg/m2 Lorenzo Malone APRN.SENIOR CONTRACT SPECIALIST Work Phone: [facility] 12-19-2023 09:27-0400 Body temperature 98.4 [degF] Lorenzo Malone TEST RACK OPERATOR.SENIOR CONTRACT SPECIALIST Work Phone: [facility] 12-19-2023 09:27-0400 Body weight 100.2 kg Lorenzo Malone TEST RACK OPERATOR.SENIOR CONTRACT SPECIALIST Work Phone: [facility] 12-19-2023 09:27-0400 Diastolic blood pressure 78 mm[Hg] Lorenzo Malone APRN.SENIOR CONTRACT SPECIALIST Work Phone: [facility] 12-19-2023 09:27-0400 Heart rate 76 /min Lorenzo Malone APRN.SENIOR CONTRACT SPECIALIST Work Phone: [facility] 12-19-2023 09:27-0400 Respiratory rate 16 /min Lorenzo Malone APRN.SENIOR CONTRACT SPECIALIST Work Phone: [facility] 12-19-2023 09:27-0400 SaO2% (BldA) [Mass fraction] 98 % Lorenzoclaudia Malone TEST RACK OPERATOR.SENIOR CONTRACT SPECIALIST Work Phone: [facility] 12-19-2023 09:27-0400 Systolic blood pressure 124 mm[Hg] Lorenzo Malone TEST RACK OPERATOR.SENIOR CONTRACT SPECIALIST Work Phone: [facility] 11-01-2023 14:45-0400 Body mass index (BMI) [Ratio] 33.62 kg/m2 Madhuri Queener PA-C Work Phone: [facility] 11-01-2023 14:45-0400 Body weight 102.06 kg Madhuri Queener PA-C Work Phone: [facility] 11-01-2023 14:45-0400 Diastolic blood pressure 88 mm[Hg] Madhuri Queener PA-C Work Phone: [facility] 11-01-2023 14:45-0400 Heart rate 77 /min Madhuri Queener PA-C Work Phone: [facility] 11-01-2023 14:45-0400 Respiratory rate 18 /min Madhuri Queener PA-C Work Phone: [facility] 11-01-2023 14:45-0400 SaO2% (BldA) [Mass fraction] 98 % Madhuri Queener PA-C Work Phone: [facility] 11-01-2023 14:45-0400 Systolic blood pressure 134 mm[Hg] Madhuri Queener PA-C Work Phone: [facility] 10-31-2023 18:11-0400 Diastolic blood pressure 87 mm[Hg] Francisco Javier Osorio MD Work Phone: [facility] 10-31-2023 18:11-0400 Heart rate 79 /min Francisco Javier Osorio MD Work Phone: [facility] 10-31-2023 18:11-0400 Systolic blood pressure 130 mm[Hg] Francisco Javier Osorio MD Work Phone: [facility] 10-31-2023 18:00-0400 Body height 174.2 cm Francisco Javier Osorio MD Work Phone: [facility] 10-31-2023 18:00-0400 Body mass index (BMI) [Ratio] 33.62 kg/m2 Francisco Javier Osorio MD Work Phone: [facility] 10-31-2023 18:00-0400 Body weight 102.06 kg Francisco Javier Osorio MD Work Phone: [facility] 08-22-2023 13:59-0400 Body mass index (BMI) [Ratio] 30.93 kg/m2 Jonathan Nielsen MD Work Phone: [facility] 08-22-2023 13:59-0400 Body temperature 97 [degF] Jonathan Nielsen MD Work Phone: [facility] 08-22-2023 13:59-0400 Body weight 100.61 kg Jonathan Nielsen MD Work Phone: [facility] 08-22-2023 13:59-0400 Diastolic blood pressure 82 mm[Hg] Jonathan Nielsen MD Work Phone: [facility] 08-22-2023 13:59-0400 Heart rate 104 /min Jonathan Nielsen MD Work Phone: [facility] 08-22-2023 13:59-0400 SaO2% (BldA) [Mass fraction] 97 % Jonathan Nielsen MD Work Phone: [facility] 08-22-2023 13:59-0400 Systolic blood pressure 130 mm[Hg] Jonathan Nielsen MD Work Phone: [facility] 08-04-2023 14:42-0400 Body height 180.3 cm [facility] 08-04-2023 14:42-0400 Body mass index (BMI) [Ratio] 29.29 kg/m2 [facility] 08-04-2023 14:42-0400 Body weight 95.25 kg [facility] 08-01-2023 15:44-0400 Body height 179.1 cm Jonathan Nielsen MD Work Phone: [facility] 08-01-2023 15:44-0400 Body mass index (BMI) [Ratio] 30.64 kg/m2 Jonathan Nielsen MD Work Phone: [facility] 08-01-2023 15:44-0400 Body temperature 97.3 [degF] Jonathan Nielsen MD Work Phone: [facility] 08-01-2023 15:44-0400 Body weight 98.25 kg Jonathan Nielsen MD Work Phone: [facility] 08-01-2023 15:44-0400 Diastolic blood pressure 88 mm[Hg] Jonathan Nielsen MD Work Phone: [facility] 08-01-2023 15:44-0400 Heart rate 96 /min Jonathan Nielsen MD Work Phone: [facility] 08-01-2023 15:44-0400 Respiratory rate 20 /min Jonathan Nielsen MD Work Phone: [facility] 08-01-2023 15:44-0400 SaO2% (BldA) [Mass fraction] 97 % Jonathan Nielsen MD Work Phone: [facility] 08-01-2023 15:44-0400 Systolic blood pressure 132 mm[Hg] Jonathan Nielsen MD Work Phone: [facility] 07-15-2023 07:03-0400 Body temperature 96.69 [degF] Catarina OrtegaEzequiel TEST RACK OPERATOR.SENIOR CONTRACT SPECIALIST Work Phone: [facility] 07-15-2023 07:03-0400 Body weight 97.52 kg Catarina Ezequiel TEST RACK OPERATOR.SENIOR CONTRACT SPECIALIST Work Phone: [facility] 07-15-2023 07:03-0400 Diastolic blood pressure 86 mm[Hg] Catarina Ezequiel TEST RACK OPERATOR.SENIOR CONTRACT SPECIALIST Work Phone: [facility] 07-15-2023 07:03-0400 Respiratory rate 16 /min Catarina Ezequiel TEST RACK OPERATOR.SENIOR CONTRACT SPECIALIST Work Phone: [facility] 07-15-2023 07:03-0400 Systolic blood pressure 130 mm[Hg] Catarina Ezequiel TEST RACK OPERATOR.SENIOR CONTRACT SPECIALIST Work Phone: [facility] 07-11-2023 08:13-0400 Body temperature 96.6 [degF] Catarina Ezequiel TEST RACK OPERATOR.SENIOR CONTRACT SPECIALIST Work Phone: [facility] 07-11-2023 08:13-0400 Body weight 97.52 kg Catarina Ezequiel TEST RACK OPERATOR.SENIOR CONTRACT SPECIALIST Work Phone: [facility] 07-11-2023 08:13-0400 Diastolic blood pressure 84 mm[Hg] Catarina Ezequiel TEST RACK OPERATOR.SENIOR CONTRACT SPECIALIST Work Phone: [facility] 07-11-2023 08:13-0400 Heart rate 96 /min Catarina Ezequiel TEST RACK OPERATOR.SENIOR CONTRACT SPECIALIST Work Phone: [facility] 07-11-2023 08:13-0400 Respiratory rate 16 /min Catarina Ezequiel TEST RACK OPERATOR.SENIOR CONTRACT SPECIALIST Work Phone: [facility] 07-11-2023 08:13-0400 SaO2% (BldA) [Mass fraction] 97 % Catarina Ezequiel TEST RACK OPERATOR.SENIOR CONTRACT SPECIALIST Work Phone: [facility] 07-11-2023 08:13-0400 Systolic blood pressure 128 mm[Hg] Catarina Ezequiel TEST RACK OPERATOR.SENIOR CONTRACT SPECIALIST Work Phone: [facility] 06-13-2023 13:25-0500 Body weight 97.98 kg Edel Perdue TEST RACK OPERATOR.WAREHOUSE ASSOCIATE Work Phone: [facility] 06-13-2023 13:25-0500 Diastolic blood pressure 86 mm[Hg] Edel Predue TEST RACK OPERATOR.WAREHOUSE ASSOCIATE Work Phone: [facility] 06-13-2023 13:25-0500 Heart rate 86 /min Edel Perdue TEST RACK OPERATOR.WAREHOUSE ASSOCIATE Work Phone: [facility] 06-13-2023 13:25-0500 Systolic blood pressure 128 mm[Hg] Edel Perdue APRN.CNS Work Phone: [facility] 02-17-2023 09:39-0500 Diastolic blood pressure 81 mm[Hg] Jonathan Nielsen MD Work Phone: [facility] 02-17-2023 09:39-0500 Heart rate 97 /min Jonathan Nielsen MD Work Phone: [facility] 02-17-2023 09:39-0500 Respiratory rate 16 /min Jnoathan Nielsen MD Work Phone: [facility] 02-17-2023 09:39-0500 SaO2% (BldA) [Mass fraction] 99 % Jonathan Nielsen MD Work Phone: [facility] 02-17-2023 09:39-0500 Systolic blood pressure 135 mm[Hg] Jonathan Nielsen MD Work Phone: [facility] 02-17-2023 08:15-0500 Body temperature 98.1 [degF] Jonathan Nielsen MD Work Phone: [facility] 02-17-2023 08:15-0500 Body weight 97.1 kg Jonathan Nielsen MD Work Phone: [facility] 01-31-2023 19:02-0400 Body weight 97.07 kg Francisco Javier Osorio MD Work Phone: [facility] 01-31-2023 19:02-0400 Diastolic blood pressure 82 mm[Hg] Francisco Javier Osorio MD Work Phone: [facility] 01-31-2023 19:02-0400 Heart rate 76 /min Francisco Javier Osorio MD Work Phone: [facility] 01-31-2023 19:02-0400 Respiratory rate 18 /min Francisco Javier Osorio MD Work Phone: [facility] 01-31-2023 19:02-0400 Systolic blood pressure 130 mm[Hg] Francisco Javier Osorio MD Work Phone: [facility] 12-16-2022 08:32-0400 Diastolic blood pressure 82 mm[Hg] Catarina Older TEST RACK OPERATOR.SENIOR CONTRACT SPECIALIST Work Phone: [facility] 12-16-2022 08:32-0400 Systolic blood pressure 136 mm[Hg] Catarina Older TEST RACK OPERATOR.SENIOR CONTRACT SPECIALIST Work Phone: [facility] 12-16-2022 08:02-0400 Body temperature 97.5 [degF] Catarina Older TEST RACK OPERATOR.SENIOR CONTRACT SPECIALIST Work Phone: [facility] 12-16-2022 08:02-0400 Body weight 97.98 kg Catarina Older TEST RACK OPERATOR.SENIOR CONTRACT SPECIALIST Work Phone: [facility] 12-16-2022 08:02-0400 Heart rate 89 /min Catarina Older TEST RACK OPERATOR.SENIOR CONTRACT SPECIALIST Work Phone: [facility] 12-16-2022 08:02-0400 Respiratory rate 16 /min Catarina Older TEST RACK OPERATOR.SENIOR CONTRACT SPECIALIST Work Phone: [facility] 12-16-2022 08:02-0400 SaO2% (BldA) [Mass fraction] 96 % Catarina Older TEST RACK OPERATOR.SENIOR CONTRACT SPECIALIST Work Phone: [facility] 11-04-2022 07:01-0400 Body temperature 97.81 [degF] Edel Perdue TEST RACK OPERATOR.WAREHOUSE ASSOCIATE Work Phone: [facility] 11-04-2022 07:01-0400 Body weight 96.16 kg Edel Perdue TEST RACK OPERATOR.WAREHOUSE ASSOCIATE Work Phone: [facility] 11-04-2022 07:01-0400 Diastolic blood pressure 82 mm[Hg] Edel Perdue TEST RACK OPERATOR.WAREHOUSE ASSOCIATE Work Phone: [facility] 11-04-2022 07:01-0400 Heart rate 83 /min Edel Perdue TEST RACK OPERATOR.WAREHOUSE ASSOCIATE Work Phone: [facility] 11-04-2022 07:01-0400 Respiratory rate 16 /min Edel Perdue TEST RACK OPERATOR.WAREHOUSE ASSOCIATE Work Phone: [facility] 11-04-2022 07:01-0400 SaO2% (BldA) [Mass fraction] 98 % Edel Perdue TEST RACK OPERATOR.WAREHOUSE ASSOCIATE Work Phone: [facility] 11-04-2022 07:01-0400 Systolic blood pressure 128 mm[Hg] Edel Perdue TEST RACK OPERATOR.WAREHOUSE ASSOCIATE Work Phone: [facility] 05-17-2022 13:34-0500 Body temperature 96.8 [degF] Catarina Older TEST RACK OPERATOR.SENIOR CONTRACT SPECIALIST Work Phone: [facility] 05-17-2022 13:34-0500 Body weight 96.16 kg Catarina Older TEST RACK OPERATOR.SENIOR CONTRACT SPECIALIST Work Phone: [facility] 05-17-2022 13:34-0500 Diastolic blood pressure 80 mm[Hg] Catarina Older TEST RACK OPERATOR.SENIOR CONTRACT SPECIALIST Work Phone: [facility] 05-17-2022 13:34-0500 Heart rate 94 /min Catarina Older TEST RACK OPERATOR.SENIOR CONTRACT SPECIALIST Work Phone: [facility] 05-17-2022 13:34-0500 Respiratory rate 16 /min Catarina Older TEST RACK OPERATOR.SENIOR CONTRACT SPECIALIST Work Phone: [facility] 05-17-2022 13:34-0500 SaO2% (BldA) [Mass fraction] 98 % Catarina Older TEST RACK OPERATOR.SENIOR CONTRACT SPECIALIST Work Phone: [facility] 05-17-2022 13:34-0500 Systolic blood pressure 125 mm[Hg] Catarina Older TEST RACK OPERATOR.SENIOR CONTRACT SPECIALIST Work Phone: [facility] 01-11-2022 15:05-0400 Diastolic blood pressure 80 mm[Hg] Catarina Older TEST RACK OPERATOR.SENIOR CONTRACT SPECIALIST Work Phone: [facility] 01-11-2022 15:05-0400 Systolic blood pressure 112 mm[Hg] Catarina Older TEST RACK OPERATOR.SENIOR CONTRACT SPECIALIST Work Phone: [facility] 01-11-2022 14:51-0400 Body weight 97.98 kg Catarina Older TEST RACK OPERATOR.SENIOR CONTRACT SPECIALIST Work Phone: [facility] 01-11-2022 14:51-0400 Heart rate 80 /min Catarina Older TEST RACK OPERATOR.SENIOR CONTRACT SPECIALIST Work Phone: [facility] 01-11-2022 14:51-0400 Respiratory rate 18 /min Catarina Older TEST RACK OPERATOR.SENIOR CONTRACT SPECIALIST Work Phone: [facility] 11-06-2021 08:44-0400 Body height 177.8 cm Jonathan Nielsen MD Work Phone: [facility] 11-06-2021 08:44-0400 Body temperature 96.6 [degF] Jonathan Nielsen MD Work Phone: [facility] 11-06-2021 08:44-0400 Body weight 98.43 kg Jonathan Nielsen MD Work Phone: [facility] 11-06-2021 08:44-0400 Diastolic blood pressure 88 mm[Hg] Jonathan Nielsen MD Work Phone: [facility] 11-06-2021 08:44-0400 Heart rate 97 /min Jonathan Nielsen MD Work Phone: [facility] 11-06-2021 08:44-0400 SaO2% (BldA) [Mass fraction] 97 % Jonathan Nielsen MD Work Phone: [facility] 11-06-2021 08:44-0400 Systolic blood pressure 132 mm[Hg] Jonathan Nielsen MD Work Phone: [facility] 09-24-2021 13:37-0400 Body temperature 97 [degF] Francisco Javier Osorio MD Work Phone: [facility] 09-24-2021 13:37-0400 Body weight 97.98 kg Francisco Javier Osorio MD Work Phone: [facility] 09-24-2021 13:37-0400 Diastolic blood pressure 74 mm[Hg] Francisco Javier Osorio MD Work Phone: [facility] 09-24-2021 13:37-0400 Heart rate 84 /min Francisco Javier Osorio MD Work Phone: [facility] 09-24-2021 13:37-0400 Respiratory rate 16 /min Francisco Javier Osorio MD Work Phone: [facility] 09-24-2021 13:37-0400 SaO2% (BldA) [Mass fraction] 96 % Francisco Javier Osorio MD Work Phone: [facility] 09-24-2021 13:37-0400 Systolic blood pressure 126 mm[Hg] Francisco Javier Osorio MD Work Phone: [facility] Encounters Encounter Date Encounter Type Care Provider Facility Start: 02-06-2024 End: 02-06-2024 ambulatory Frances Kam RN NURSE STUDENT SUPPORT ADVISOR Comment on above: Vomiting; Constipati on Start: 02-01-2024 End: 02-01-2024 ambulatory CARMEN ROJAS Facility:[facility] Start: 01-30-2024 End: 01-30-2024 ambulatory FRANCISCO JAVIER OSORIO Facility:[facility] Start: 01-30-2024 End: 01-30-2024 Patient encounter procedure Francisco Javier Osorio MD Work Phone: [facility] [place] Comment on above: Anxiety and depressi on (Primary Dx); Achilles tendinitis of left lower extremity; Hyperlipidemia, unspecified hyperlipidemia type Start: 01-23-2024 End: 01-23-2024 ambulatory FRANCISCO JAVIER OSORIO Facility:[facility] Start: 01-23-2024 End: 01-23-2024 Patient encounter procedure Jonathan Foster APRN.SENIOR CONTRACT SPECIALIST, DNP Work Phone: Urology Comment on above: Bladder wall thicken ing (Primary Dx); Urgency of urination; Mixed stress and urge urinary incontinence; Prostate cancer screening Start: 01-20-2024 End: 01-20-2024 [facility]: [facility] Start: 01-20-2024 End: 01-20-2024 ambulatory FRANCISCO JAVIER OSORIO Facility:[facility] Start: 01-20-2024 End: 01-20-2024 Anesthesia consultation [facility] 2 Work Phone: Pre Anesthesia Comment on above: Pre-op testing (Prim praveena Dx); Achilles tendinitis of left lower extremity; KEYLA (obstructive sleep apnea); Anxiety and depression; Hyperlipidemia, unspecified hyperlipidemia type; Obesity, Class I, BMI 30-34.9; Vitamin D deficiency; History of seizures; Seasonal allergic rhinitis, unspecified trigger Start: 01-20-2024 End: 01-20-2024 Patient encounter status [facility] 2 Work Phone: [facility] Work Phone: Start: 01-19-2024 End: 01-19-2024 ambulatory FRANCISCO JAVIER OSORIO Facility:[facility] Start: 01-19-2024 End: 01-19-2024 Patient encounter procedure German Reynoso Crissy BATRES Work Phone: [facility] Ear, Nose, and Throat (ENT) Comment on above: Asymmetrical sensori neural hearing loss (Primary Dx) Acute otitis externa of right ear, unspecified type; Dysfunction of both eustachian tubes; Sensorineural hearing loss (SNHL) of left ear with unrestricted hearing of right ear; Chronic eczematous otitis externa of both ears Start: 01-19-2024 End: 01-19-2024 ambulatory LATISHA BIRMINGHAM Facility:[facility] Start: 01-17-2024 End: 01-17-2024 Patient Msg Carmen Rojas MD Work Phone: [facility] [place] Comment on above: Order Start: 01-11-2024 End: 01-12-2024 Telephone encounter Jonathan Foster APRN.SENIOR CONTRACT SPECIALIST, DNP Work Phone: Urology Comment on above: Appointment Start: 01-11-2024 ambulatory FRANCISCO JAVIER OSORIO Faci lity:[facility] Start: 01-09-2024 End: 01-09-2024 ambulatory FRANCISCO JAVIER OSORIO Facility:[facility] Start: 01-09-2024 End: 01-09-2024 Patient encounter procedure Jonathan Nielsen MD Work Phone: General Surgery Comment on above: Rectal bleeding (Dorina jaylene Dx) Start: 12-26-2023 End: 12-26-2023 Telephone encounter Carmen Rojas MD Work Phone: Orthopaedics Comment on above: Patient Question; Ap pointment Start: 12-19-2023 End: 12-19-2023 ambulatory FRANCISCO JAVIER OSORIO Facility:[facility] Start: 12-19-2023 End: 12-19-2023 Office outpatient visit 25 minutes Lorenzo Maynardhenrique CASTELLONSENIOR CONTRACT SPECIALIST Work Phone: [facility] Comment on above: Suspected COVID-19 v irus infection (Primary Dx); Acute otitis media, left Start: 12-19-2023 Encounter for other preprocedural examination FRANCISCO JAVIER OSORIO [facility] Start: 12-19-2023 End: 12-19-2023 ambulatory Enoc Bynum [facility] Comment on above: Chronic heel pain, l eft (Primary Dx); Achilles tendinitis of left lower extremity; Pre-op testing Start: 12-19-2023 End: 12-19-2023 Patient encounter status [facility] Start: 12-13-2023 End: 12-13-2023 ambulatory Ca Brown PTA Work Phone: [facility] Physical [facility] Comment on above: Chronic heel pain, l eft (Primary Dx) Start: 12-10-2023 End: 12-13-2023 Admission to same day surgery center Carmen Rojas MD Work Phone: Orthopaedics Comment on above: Surgery Start: 12-10-2023 End: 12-13-2023 ambulatory Carmen Rojas MD Work Phone: Orthopaedics Start: 12-08-2023 End: 12-08-2023 ambulatory FRANCISCO JAVIER OSORIO Facility:[facility] Start: 12-08-2023 End: 12-08-2023 Office consultation new/estab patient 60 min Carmen Rojas MD Work Phone: Orthopaedics Comment on above: Achilles tendinitis of left lower extremity (Primary Dx) Start: 12-05-2023 End: 12-05-2023 ambulatory Enoc Bynum PT [facility] Therapy Comment on above: Chronic heel pain, l eft (Primary Dx) Start: 11-20-2023 End: 11-20-2023 Letter encounter Jake Conrad MD Work Phone: [facility] Start: 11-14-2023 End: 11-14-2023 ambulatory Enoc Bynum PT [place] [facility] Physical Therapy Comment on above: Chronic heel pain, l eft (Primary Dx) Start: 11-10-2023 End: 11-10-2023 ambulatory FRANCISCO JAVIER OSORIO Facility:[facility] Start: 11-10-2023 End: 11-10-2023 Subsequent hospital visit by physician Mri Radio [facility] (I-Stat/1.5t) Work Phone: Radiology Comment on above: Chronic pain of left ankle [M25.572, G89.29] Start: 11-07-2023 End: 11-08-2023 ambulatory FRANCISCO JAVIER OSORIO Facility:[facility] Start: 11-07-2023 End: 11-08-2023 Patient encounter procedure Eeg Neur Hill Work Phone: Neurology Comment on above: History of seizure; Seizure disorder (HCC) Start: 11-01-2023 End: 11-01-2023 ambulatory FRANCISCO JAVIER OSORIO Facility:[facility] Start: 11-01-2023 End: 11-01-2023 Patient encounter procedure Madhuri Casiano PA-C Work Phone: Neurology Comment on above: Seizure disorder (HC C) (Primary Dx); History of seizure Start: 11-01-2023 End: 11-01-2023 ambulatory FRANCISCO JAVIER OSORIO Facility:[facility] Start: 10-31-2023 End: 10-31-2023 ambulatory FRANCISCO JAVIER OSORIO Facility:[facility] Start: 10-31-2023 End: 10-31-2023 Patient encounter procedure Francisco Javier Osorio MD Work Phone: [facility] [place] Comment on above: Routine medical exam (Primary Dx); Dermatitis; Psoriasis; Anxiety and depression; Disturbance of smell; History of seizure; Chest pain, atypical; Pain in joint involving multiple sites Start: 10-31-2023 End: 10-31-2023 Patient encounter status Francisco Javier Osorio MD Work Phone: [facility] Start: 10-28-2023 Telephone encounter Francisco Javier vicente MD Work Phone: [facility] [place] Comment on above: Patient Question Start: 10-18-2023 Telephone encounter Carmen Rojas MD Work Phone: [facility] Comment on above: Appointment Start: 10-10-2023 End: 10-10-2023 ambulatory ASTON MCMAHAN Facility:[facility] Start: 10-10-2023 End: 10-10-2023 Patient encounter procedure Aston Mcmahan Work Phone: Podiatry Comment on above: Chronic pain of left ankle (Primary Dx); Calcaneal spur of left foot Start: 10-10-2023 End: 10-10-2023 Subsequent hospital visit by physician Aldair [facility] T[place] Work Phone: Radiology Comment on above: Pain in left foot [M 79.672] Start: 09-06-2023 Refill Catarina bob APRN.CNP Work Phone: [facility] [place] Comment on above: Refill Request Start: 08-22-2023 End: 08-22-2023 ambulatory FRANCISCO JAVIER OSORIO Facility:[facility] Start: 08-22-2023 End: 08-22-2023 Patient encounter procedure Jonathan Nielsen MD Work Phone: General Surgery Comment on above: Anal warts (Primary Dx) Start: 08-10-2023 End: 08-10-2023 ambulatory JONATHAN NIELSEN Facility:[facility] Start: 08-04-2023 End: 08-04-2023 Admission to establishment [facility] Pre Anesthesia Start: 08-04-2023 End: 08-04-2023 ambulatory FRANCISCO JAVIER OSORIO Facility:[facility] Start: 08-04-2023 End: 08-04-2023 Anesthesia consultation [facility] Pre Anesthesia Comment on above: Preoperative examina tion (Primary Dx); KEYLA (obstructive sleep apnea); Anxiety and depression; Hyperlipidemia, unspecified hyperlipidemia type; Psoriasis Start: 08-04-2023 End: 08-04-2023 Preprocedural examination done [facility] Start: 08-01-2023 End: 08-01-2023 ambulatory KIARA OSORIO Facility:[facility] Start: 08-01-2023 End: 08-01-2023 Patient encounter procedure Jonathan Nielsen MD Work Phone: General Surgery Comment on above: Anal warts (Primary Dx) Start: 07-27-2023 Refill Catarina bob TEST RACK OPERATOR.SENIOR CONTRACT SPECIALIST Work Phone: [facility] [place] Comment on above: Refill Request Start: 07-15-2023 End: 07-15-2023 ambulatory CATARINA ROBERTS Facility:[facility] Start: 07-15-2023 End: 07-15-2023 Patient encounter procedure Catarina Roberts TEST RACK OPERATOR.SENIOR CONTRACT SPECIALIST Work Phone: [facility] [place] Comment on above: Abdominal wall cellu litis (Primary Dx) Start: 07-11-2023 End: 07-11-2023 ambulatory CATARINA ROBERTS Facility:[facility] Start: 07-11-2023 End: 07-11-2023 Patient encounter procedure Catarina Roberts TEST RACK OPERATOR.SENIOR CONTRACT SPECIALIST Work Phone: Internal Medicine [place] Comment on above: Abdominal wall cellu litis (Primary Dx) Start: 06-16-2023 ambulatory Edel JORDANWAREHOUSE ASSOCIATE Work Phone: [facility] [place] Comment on above: Chest xray Start: 06-15-2023 End: 06-15-2023 ambulatory FRANCISCO JAVIER OSORIO Facility:[facility] Start: 06-15-2023 End: 06-15-2023 Subsequent hospital visit by physician Aldair [facility] [place] T[place] Work Phone: Radiology Comment on above: Other infective acut e otitis externa of both ears [H60.393] Start: 06-13-2023 End: 06-13-2023 ambulatory FRANCISCO JAVIER OSORIO Facility:[facility] Start: 06-13-2023 End: 06-13-2023 Office outpatient visit 15 minutes Edel Perdue TEST RACK OPERATOR.WAREHOUSE ASSOCIATE Work Phone: [facility] [place] Comment on above: Elevated blood press ure reading in office without diagnosis of hypertension (Primary Dx); Encounter for immunization; Acute suppurative otitis media of both ears without spontaneous rupture of tympanic membranes, recurrence not specified; Other infective acute otitis externa of both ears; Acute cough; Acute non-recurrent frontal sinusitis Start: 06-07-2023 End: 06-07-2023 ambulatory EDEL PERDUE Facility:[facility] Start: 05-02-2023 End: 05-02-2023 ambulatory FRANCISCO JAVIER OSORIO Facility:[facility] Start: 02-24-2023 End: 02-24-2023 ambulatory FRANCISCO JAVIER OSORIO Facility:[facility] Start: 02-24-2023 End: 02-24-2023 Patient encounter procedure Jonathan Nielsen MD Work Phone: General Surgery Comment on above: Anal warts (Primary Dx) Start: 02-23-2023 End: 02-23-2023 ambulatory KIARA DEVON Facility:[facility] Start: 02-23-2023 End: 02-23-2023 Subsequent hospital visit by physician Diagnostic Mammo [facility] Comment on above: Subareolar mass of l eft breast [N63.42] Start: 02-17-2023 End: 02-17-2023 ambulatory Rachana Carter RN NURSE STUDENT SUPPORT ADVISOR Comment on above: Information Patient Update Start: 02-17-2023 End: 02-17-2023 Subsequent hospital visit by physician Jonathan Nielsen MD Work Phone: Ambulatory Surgery Comment on above: Abdominal pain, left lower quadrant [R10.32] Start: 02-01-2023 End: 02-01-2023 Patient encounter procedure Jonathan Nielsen MD Work Phone: General Surgery Comment on above: Abdominal pain, left lower quadrant; Rectal bleeding Start: 02-01-2023 End: 02-01-2023 ambulatory FRANCISCO JAVIER OSORIO Facility:[facility] Start: 01-31-2023 End: 01-31-2023 Patient encounter procedure Francisco Javier Osorio MD Work Phone: Internal Medicine [place] Comment on above: Abdominal pain, left lower quadrant (Primary Dx); Rectal bleeding; Subareolar mass of left breast; Need for COVID-19 vaccine Start: 12-24-2022 ambulatory Catarina Richards TEST RACK OPERATOR .SENIOR CONTRACT SPECIALIST Work Phone: Internal Medicine [place] Comment on above: lab results Start: 12-24-2022 E-mail encounter mary anne reynoso caregiver Catarina Richards TEST RACK OPERATOR.SENIOR CONTRACT SPECIALIST Work Phone: [facility] Start: 12-16-2022 End: 12-16-2022 Patient encounter procedure Catarina Richards TEST RACK OPERATOR.SENIOR CONTRACT SPECIALIST Work Phone: Internal Medicine [place] Comment on above: Otitis media, recurr ent, left (Primary Dx); Erectile dysfunction, unspecified erectile dysfunction type; Psoriasis; Pain in joint involving multiple sites; Encounter for lipid screening for cardiovascular disease; Encounter for screening for diabetes mellitus; Encounter for immunization Start: 11-04-2022 End: 11-04-2022 Office outpatient visit 15 minutes Edel Perdue APRN.WAREHOUSE ASSOCIATE Work Phone: [facility] [place] Comment on above: Bug bite, initial en counter (Primary Dx); Skin infection Start: 08-22-2022 Letter encounter Jake styles MD Work Phone: [facility] Start: 07-21-2022 Refill Francisco Javier bonilla MD Work Phone: Internal Medicine [place] Comment on above: Refill Request Start: 05-25-2022 Telephone encounter Francisco Javier vicente MD Work Phone: Family [facility] [place] Comment on above: Patient Question Start: 05-17-2022 End: 05-17-2022 Patient encounter procedure Catarina Richards APRN.SENIOR CONTRACT SPECIALIST Work Phone: [facility] [place] Comment on above: Non-recurrent acute suppurative otitis media of both ears without spontaneous rupture of tympanic membranes (Primary Dx) Start: 04-15-2022 Refill Francisco Javier bonilla MD Work Phone: [facility] [place] Comment on above: Refill Request Start: 03-11-2022 End: 03-11-2022 ambulatory Pamela Richards APRN.SENIOR CONTRACT SPECIALIST Work Phone: Internal Medicine [place] Comment on above: COVID (Primary Dx) Start: 03-11-2022 End: 03-11-2022 Telemedicine consultation with patient Pamela Richards APRN.SENIOR CONTRACT SPECIALIST Work Phone: [facility] Start: 01-11-2022 End: 01-11-2022 Patient encounter procedure Catarina Richards APRN.SENIOR CONTRACT SPECIALIST Work Phone: Internal Medicine [place] Comment on above: Anxiety and depressi on (Primary Dx); Obesity, Class I, BMI 30-34.9; KEYLA (obstructive sleep apnea); Encounter for immunization Start: 11-06-2021 End: 11-06-2021 Patient encounter procedure Jonathan Nielsen MD Work Phone: General Surgery Comment on above: Perianal abscess (Pr imary Dx) Start: 11-05-2021 Telephone encounter Francisco Javier vicente MD Work Phone: [facility] Comment on above: Appointment Start: 10-26-2021 ambulatory Francisco Javier bonilla MD Work Phone: [facility] [place] Comment on above: Diarrhea Start: 09-24-2021 End: 09-24-2021 Office outpatient visit 10 minutes Francisco Javier Osorio MD Work Phone: Internal Medicine [place] Comment on above: Impacted cerumen of left ear (Primary Dx); Acute non-recurrent sinusitis of other sinus Start: 09-22-2021 ambulatory Catarina Richards APRN .SENIOR CONTRACT SPECIALIST Work Phone: Internal Medicine [place] Comment on above: My call today Start: 09-22-2021 Telephone encounter Francisco Javier vicente MD Work Phone: [facility] [place] Comment on above: Patient Update Start: 07-04-2021 Orders Only Francisco Javier bonilla MD Work Phone: [facility] [place] Comment on above: Positive hepatitis C antibody test (Primary Dx) Start: 07-06-2020 End: 07-06-2020 Orders Only Norah Ling Waqar Work Phone: [facility] Internal Medicine Start: 07-01-2020 End: 07-01-2020 Subsequent hospital visit by physician Aldair [facility] [place] Work Phone: Radiology Comment on above: Constipation, unspec ified constipation type [K59.00] Start: 05-25-2020 End: 05-25-2020 Letter encounter Jake Conrad [facility] Start: 03-21-2017 End: 03-21-2017 Emergency department patient visit [facility] Start: 03-18-2017 [facility] Start: 03-15-2017 Ambulatory [facility] Start: 03-10-2017 End: 03-11-2017 Ambulatory LINDSEY [facility] Start: 01-24-2017 Ambulatory [facility] Procedures Date Procedure Procedure Detail Performing Clinician Start: 01-23-2024 Urnls dip stick/tablet rgnt auto w/o microscopy Jonathan Foster TEST RACK OPERATOR.SENIOR CONTRACT SPECIALIST, DNP Work Phone: Start: 01-19-2024 HEARING TEST/AUDIOGRAM German Woodward GSIEL Work Phone: Start: 11-10-2023 Mri any jt lower extrem w/o contrast matrl Aston Mcmahan Work Phone: Start: 11-07-2023 Electroencephalogram w/rec awake&drowsy Madhuri Casiano PA-C Work Phone: Start: 10-31-2023 Ecg routine ecg w/least 12 lds i&r only [facility] Provider Start: 06-15-2023 Radiologic exam chest 2 views Edel landaverde TEST RACK OPERATOR.WAREHOUSE ASSOCIATE Work Phone: Start: 02-23-2023 Us breast uni real time with image limited Francisco Javier Osorio MD Work Phone: Start: 02-23-2023 Digital breast tomosynthesis bilateral Francisco Javier Osorio MD Work Phone: Start: 02-17-2023 Colonoscopy flx dx w/collj spec when pfrmd Jonathan Nielsen MD Work Phone: Start: 02-17-2023 Colonoscopy Rachana Carter RN Start: 01-31-2023 PFIZER-BIONTECH COVID-19 VACCINE (2022- SEASON) AGE 12+ YR Francisco Javier Osorio MD Work Phone: Start: 12-16-2022 INFLUENZA VACCINE, AGE 6 MO - 64 YR, QUADRIVALENT (AFLURIA, FLULAVAL, FLUZONE) Catarina Older TEST RACK OPERATOR.SENIOR CONTRACT SPECIALIST Work Phone: Start: 12-16-2022 Lipid 1996 panel - Serum or Plasma Catarina Older TEST RACK OPERATOR.SENIOR CONTRACT SPECIALIST Work Phone: Start: 01-11-2022 INFLUENZA VACCINE QUADRIVALENT 6 MO - 64 YRS IM Catarina Older TEST RACK OPERATOR.SENIOR CONTRACT SPECIALIST Work Phone: Start: 01-11-2022 PFIZER-BIONTECH COVID-19 BIVALENT BOOSTER VACCINE, AGE 12+ YR Catarina Older TEST RACK OPERATOR.SENIOR CONTRACT SPECIALIST Work Phone: Start: 07-01-2020 Radiologic exam abdomen 2 views Catarina M He rshberger TEST RACK OPERATOR.SENIOR CONTRACT SPECIALIST Work Phone: Plan of Treatment Date Care Activity Detail Author Start: 02-17-2033 Screening for malignant neoplasm of colon [facility] Start: 04-02-2028 Urine microalbumin profile [facility] Start: 12-17-2027 Lipid 1996 panel - Serum or Plasma Lipid Screening [facility] Start: 12-17-2027 Lipid panel Lipid Screening [facility] Start: 10-31-2026 Diabetes Screening Diabetes Screening [facility] Start: 12-16-2025 Diabetes Screening Diabetes Screening [facility] Start: 2025 Shingles (RZV) Vaccine (1 of 2) Shingles (RZV) Vaccine (1 of 2) [facility] Start: 01-16-2025 LIPID SCREEN LIPID SCREEN [facility] Start: 09-25-2024 End: 09-25-2024 Patient encounter procedure 09/25/2024 8:00 AM EDT Office Visit General Surgery [address] [place] [address] Radha Lao APRN.SENIOR CONTRACT SPECIALIST [address] [place] [address] Consult for colonoscopy General Surgery Comment on above: Consult for colonoscopy Start: 07-30-2024 End: 10-29-2024 Comprehensive metabolic 2000 panel - Serum or Plasma COMPREHENSIVE METABOLIC PANEL Lab Routine Hyperlipidemia, unspecified hyperlipidemia type Expected: 07/30/2024, Expires: 10/29/2024 [facility] Work Phone: Comment on above: Expected: 07/30/2024, Expires: Start: 07-30-2024 End: 10-29-2024 Lipid 1996 panel - Serum or Plasma LIPID PANEL BASIC Lab Routine Hyperlipidemia, unspecified hyperlipidemia type Expected: 07/30/2024, Expires: 10/29/[address] [facility] Comment on above: Expected: 07/30/2024, Expires: Start: 07-27-2024 End: 07-27-2024 Patient encounter procedure 07/27/2024 11:20 AM EDT Office Visit Internal Medicine [place] [address] [place] [address] Francisco Javier Osorio MD [address] [place] [address] 6 Month F/U Internal Medicine [place] Comment on above: 6 Month F/U Start: 04-23-2024 End: 04-23-2024 Patient encounter procedure 04/23/2024 3:30 PM EST Office Visit Urology [address] [place] [address] Jonathan Foster APRN.SENIOR CONTRACT SPECIALIST, DNP [address] [place] [address] 3 month f/u Urology Comment on above: 3 month f/u Start: 02-29-2024 End: 02-29-2024 Patient encounter procedure 02/29/2024 8:30 AM EST Office Visit Urology [address] [address] Sebastien Vale MD [address] [place] [address] cysto/trus Urology Comment on above: cysto/trus Start: 02-27-2024 End: 02-27-2024 Patient encounter procedure 02/27/2024 9:30 AM EST Office Visit [facility] General Ear, Nose, and Throat (ENT) [address] [place] [id number] Latisha Birmingham PA-C [address] [place] [address] 1 mn f/u for ears [facility] Ear, Nose, and Throat (ENT) Comment on above: 1 mn f/u for ears Start: 02-23-2024 End: 02-23-2024 Patient encounter procedure 02/23/2024 10:00 AM EST Appointment Cat Scan [address] [facility] [address] Bladder wall thickening [N32.89] Cat Scan Comment on above: Bladder wall thickening [N32.89] Start: 02-21-2024 End: 02-21-2024 Patient encounter procedure 02/21/2024 9:20 AM EST Appointment Radiology [address] [facility] [address] H90.42 (ICD-10-CM) - Sensorineural hearing loss (SNHL) of left ear with unrestricted hearing of right ear Radiology Comment on above: H90.42 (ICD-10-CM) - Sensorineural heari ng loss (SNHL) of left ear with unrestricted hearing of right ear Start: 02-18-[address] [facility] Start: 02-18-2024 Colorectal Cancer Screening Colorectal Cancer Screening [facility] Start: 02-18-2024 Screening for malignant neoplasm of colon [facility] Start: 02-13-2024 End: 02-13-2024 Patient encounter procedure 02/13/2024 3:30 PM EST Office Visit General Surgery [address] [place], [place] [address] Jonathan Nielsen MD [address] [place], [place] [id number] CONSULT COLONOSCOPY General Surgery Comment on above: CONSULT COLONOSCOPY Start: 02-11-2024 End: 02-11-2024 Patient encounter procedure 02/11/2024 10:00 AM EDT Immunization [facility] [place] [address] [place], [place] [id number] [place], Immunization Clinic Nurse [address] [place], [place] [id number] Flu & COVID [facility] [place] Comment on above: Flu & COVID Start: 02-09-2024 End: 02-09-2024 Nursing evaluation of patient and report 02/09/2024 2:00 PM EDT Nurse Visit Orthopaedics [address] [place], [place] [id number] [place] [address] [place], [place] [id number] 1 week XOC - DOS 01/31 Orthopaedics Comment on above: 1 week XOC - DOS 01/31 Start: 02-09-2024 End: 02-09-2024 Patient encounter procedure Orthopaedics Comment on above: 1 week XOC - DOS 01/31 Start: 02-03-2024 End: 02-21-2025 CT Kidney WO and W contrast IV CT UROGRAM WO/W IVCON Radiology Routine Bladder wall thickening Expected: 02/03/2024, Expires: 02/21/2025 [facility] Work Phone: Comment on above: Expected: 02/03/2024, Expires: Start: 02-01-2024 End: 02-01-2024 Admission to same day surgery center 02/01/2024 11:00 AM EDT - 02/01/2024 1:00 PM EDT Surgery [facility] Ambulatory Surgery - [facility] [address] [place] [address] Geni-Carmen Myles MD [address] [place], [place] [id number] REPAIR ACHILLES TENDON SECONDARY [facility] Ambulatory Surgery - ASCE Comment on above: REPAIR ACHILLES TENDON SECONDARY Start: 02-01-2024 End: 02-01-2024 Ostectomy calcaneus OSTECTOMY CALCANEUS Achilles tendinitis of left lower extremity 02/01/2024 11:00 AM EDT [facility] Start: 02-01-2024 End: 02-01-2024 Repair secondary achilles tendon w/wo graft REPAIR ACHILLES TENDON SECONDARY Achilles tendinitis of left lower extremity 02/01/2024 11:00 AM EDT [facility] Start: 02-01-2024 Subsequent hospital visit by physician 02/01/2024 11:00 AM EDT Hospital Encounter [facility] Surgery - ASCE [address]en Myles MD [address] [place] [address] Achilles tendinitis of left lower extremity [M76.62] [facility] Comment on above: Achilles tendinitis of left lower extrem ity [M76.62] Start: 02-01-2024 End: 02-01-2024 Tenolysis flxr/xtnsr tendon leg&/ankle 1 each RELEASE TENDON EXTREMITY LOWER Achilles tendinitis of left lower extremity 02/01/2024 11:00 AM EDT [facility] Start: 02-01-2024 End: 02-01-2024 Tr/trnspl 1 tdn w/musc redirion/rerouting dp TRANSFER TENDON EXTREMITY LOWER Achilles tendinitis of left lower extremity 02/01/2024 11:00 AM EDT [facility] Start: 01-30-2024 End: 01-30-2024 Patient encounter procedure 01/30/2024 5:20 PM EDT Office Visit Internal Medicine [facility] [address] [place] [address] Francisco Javier Osorio MD [address] [place] [address] 3 month follow-up [facility] Medicine [facility] Comment on above: 3 month follow-up Start: 01-26-2024 COLOGUARD (FIT-DNA) COLOGUARD (FIT-DNA) [facility] Start: 01-26-2024 COLORECTAL CANCER SCREENING COLORECTAL CANCER SCREENING [facility] Start: 01-26-2024 Screening for malignant neoplasm of colon Cologuard (FIT-DNA) [facility] Start: 01-23-2024 End: 04-23-2024 PSA/PROSTATE SPECIFIC ANTIGEN SCREENING [facility] Comment on above: Expected: 01/23/2024, Expires: Start: 01-23-2024 End: 01-23-2024 Patient encounter procedure 01/23/2024 9:00 AM EDT Office Visit Urology [address] [place] [address] Jonathan Foster APRN.SENIOR CONTRACT SPECIALIST, DNP [address] [place] [address] thickening of bladder wall, leakage Urology Comment on above: thickening of bladder wall, leakage Start: 01-20-2024 End: 01-20-2024 Anesthesia consultation 01/20/2024 7:30 AM EDT PAT Pre Anesthesia [address] [place] [address] [facility] Virtual [phone] Pre Anesthesia Comment on above: [facility] Virtual [phone] Start: 01-19-2024 End: 01-19-2024 Patient encounter procedure 01/19/2024 1:30 PM EDT Office Visit [facility] (ENT) [address] [place] [id number] Latisha Birmingham PA-C [address] [place], [place] [address] Other infective acute otitis externa of both ears [H60.393] [facility] (ENT) Comment on above: Other infective acute otitis externa of both ears [H60.393] Start: 01-18-2024 End: 01-18-2024 Anesthesia consultation 01/18/2024 10:40 AM EDT PAT Pre Anesthesia [address] [facility] [place] [address] 1, [facility] [address] [place] [address] pre op testing - dos 01/31 Pre Anesthesia Comment on above: pre op testing - dos 01/31 Start: 01-18-2024 End: 01-18-2024 ambulatory 01/18/2024 9:00 AM EDT OT/PT/Speech Visit [facility] Physical Therapy [address] [place] [address] Jose Raul Ochoa, PT [address] [place] [address] pre op crutch training - dos 01/31 [facility] Comment on above: pre op crutch training - dos 01/31 Start: 01-11-2024 End: 01-11-2024 Patient encounter procedure 01/11/2024 9:00 AM EDT Office [place] [address] DOS 01/31 [facility] Comment on above: DOS 01/31 Start: 01-10-2024 Influenza vaccination Influenza Vaccine (#1) [facility] Start: 01-09-2024 End: 01-09-2024 Patient encounter procedure 01/09/2024 3:15 PM EDT Office Visit General Surgery [address] [place] [address] Jonathan Nielsen MD [address] [place] [address] CONSULT COLONOSCOPY- ok to reschedule margarette Johnson in office General Surgery Comment on above: CONSULT COLONOSCOPY- ok to reschedule dickson Johnson in office Start: 12-19-2023 End: 12-19-2023 ambulatory 12/19/2023 8:15 AM EDT OT/PT/Speech Visit [facility] [address] [place] [address] Enoc Bynum, PT M25.572,G89.29 (ICD-10-CM) - Chronic pain of left ankle P [facility] Comment on above: M25.572,G89.29 (ICD-10-CM) - Chronic terry n of left ankle P Start: 12-13-2023 End: 12-13-2023 ambulatory 12/13/2023 8:00 AM EDT OT/PT/Speech Visit [facility] [address] [place] [address] KasCa keen, MORTGAGE OPERATIONS MANAGER [address] [place] [address] M25.572,G89.29 (ICD-10-CM) - [facility] Comment on above: M25.572,G89.29 (ICD-10-CM) - Chronic terry n of left ankle P Start: 12-11-2023 Covid-19 Vaccine ( season) Covid-19 Vaccine ( season) [facility] Start: 12-11-2023 Influenza vaccination Influenza Vaccine (#1) [facility] Start: 12-08-2023 End: 12-08-2023 Patient encounter procedure 12/08/2023 8:00 AM EDT Office Visit Orthopaedics [address] [place] [address] Carmen Rojas MD [address] [place] [address] Consultation for Left Achilles Tendon suregery - referred by Dr. Mcmahan; Xrays and MRI in [facility] Orthopaedics Comment on above: Consultation for Left Achilles Tendon sousa regery - referred by Dr. Mcmahan; Xrays and MRI in [facility] Start: 12-05-2023 End: 12-05-2023 ambulatory 12/05/2023 8:15 AM EDT OT/PT/Speech Visit [facility] [address] [place] [address] Enoc Bynum PT M25.572,G89.29 (ICD-10-CM) - Chronic pain of left ankle P [facility] Comment on above: M25.572,G89.29 (ICD-10-CM) - Chronic terry n of left ankle P Start: 11-25-2023 End: 11-25-2023 ambulatory 11/25/2023 10:15 AM EDT OT/PT/Speech Visit [facility] [address] [place] [address] Ca Brown, MORTGAGE OPERATIONS MANAGER [address] [place] [address] M25.572,G89.29 (ICD-10-CM) - Chronic pain of left ankle P [facility] Comment on above: M25.572,G89.29 (ICD-10-CM) - Chronic terry n of left ankle P Start: 11-14-2023 End: 11-14-2023 ambulatory 11/14/2023 9:00 AM EDT OT/PT/Speech Visit [facility] [address] [place] [address] Enoc Bynum, PT Chronic pain of left ankle [M25.572, G89.29] [facility] Therapy Comment on above: Chronic pain of left ankle [M25.572, G89 .29] Start: 11-14-2023 End: 11-14-2023 Patient encounter procedure 11/14/2023 8:00 AM EDT Appointment Radiology [address] [place] [address] Chronic pain of left ankle [M25.572, G89.29] Radiology Comment on above: Chronic pain of left ankle [M25.572, G89 .29] Start: 11-13-2023 Hepatitis A Vaccine (3 of 3 - Hep A Twinrix risk 3-dose series) Hepatitis A Vaccine (3 of 3 - Hep A Twinrix risk 3-dose series) [facility] Start: 11-13-2023 Hepatitis B Vaccine (3 of 3 - Hep B Twinrix 3-dose series) Hepatitis B Vaccine (3 of 3 - Hep B Twinrix 3-dose series) [facility] Start: 11-07-2023 End: 11-07-2023 Patient encounter procedure 11/07/2023 1:30 PM EDT Office Visit Neurology [address] [place] [address] History of seizure [Z87.898] Neurology Comment on above: History of seizure [Z87.898] Start: 11-01-2023 End: 11-01-2023 ambulatory 11/01/2023 3:00 PM EDT OT/PT/Speech Visit [facility] [address] [place] [address] Enoc Bynum, PT Chronic pain of left ankle [M25.572, G89.29] [facility] Comment on above: Chronic pain of left ankle [M25.572, G89 .29] Start: 10-31-2023 End: 10-31-2023 Patient encounter procedure 10/31/2023 6:00 PM EDT Office Visit Internal Medicine [facility] [address] [place] [address] Francsico Javier Osorio MD [address] [place] [address] Yearly w/6 month follow-up [facility] Medicine [facility] Comment on above: Yearly w/6 month follow-up Start: 10-29-2023 Orders Only 10/29/2023 Orders Only [facility] Medicine [facility] [address] [place] [address] Francisco Javier Osorio MD [address] [place] [address] Need for vaccination [facility] Comment on above: Need for vaccination Start: 10-25-2023 End: 10-25-2023 ambulatory 10/25/2023 10:00 AM EDT OT/PT/Speech Visit [facility] Therapy [address] [place] [address] Enoc Bynum, PT Chronic pain of left ankle [M25.572, G89.29] [facility] Comment on above: Chronic pain of left ankle [M25.572, G89 .29] Start: 10-10-2023 End: 10-10-2023 Patient encounter procedure Radiology Comment on above: left heel spur xr discuss poosible jovanni osman on left foot Start: 08-22-2023 End: 08-22-2023 Patient encounter procedure 08/22/2023 2:00 PM EDT Office Visit General Surgery [address] [place] [address] Jonathan Nielsen MD [address] [place] [address] post op bob dp 08/09 General Surgery Comment on above: post op bob dp 08/09 Start: 08-10-2023 End: 08-10-2023 Admission to same day surgery center 08/10/2023 8:56 AM EDT - 08/10/2023 10:10 AM EDT Surgery [facility] Surgery [address] [place] [address] Jonathan Nielsen MD [address] [place] [address] DESTRUCTION OF ANAL CONDYLOMA VIA ELECTRODESICCATION SIMPLE [facility] Surgery Comment on above: DESTRUCTION OF ANAL CONDYLOMA VIA ELECTR ODESICCATION SIMPLE Start: 08-10-2023 End: 08-10-2023 Dstrj lesion anus smpl eltrdsiccation DESTRUCTION OF ANAL CONDYLOMA VIA ELECTRODESICCATION SIMPLE Anal warts 08/10/2023 8:56 AM EDT ME OR Start: 08-10-2023 Subsequent hospital visit by physician [facility] Surgery Comment on above: Anal warts [A63.0] Start: 12-16-2022 End: 02-15-2023 C reactive protein [Mass/volume] in Serum or Plasma C-REACTIVE PROTEIN (CRP) Lab Routine Pain in joint involving multiple sites Psoriasis Expected: 12/16/2022, Expires: 02/15/2023 [facility] Work Phone: Comment on above: Expected: 12/16/2022, Expires: 3 Start: 12-16-2022 End: 02-15-2023 CBC panel - Blood by Automated count [facility] Work Phone: Comment on above: Expected: 12/16/2022, Expires: 3 Start: 12-16-2022 End: 02-15-2023 Comprehensive metabolic 2000 panel - Serum or Plasma [facility] Work Phone: Comment on above: Expected: 12/16/2022, Expires: 3 Start: 12-16-2022 End: 02-15-2023 Erythrocyte sedimentation rate SED RATE WESTERGREN Lab Routine Pain in joint involving multiple sites Psoriasis Expected: 12/16/2022, Expires: 02/15/2023 [facility] Work Phone: Comment on above: Expected: 12/16/2022, Expires: Start: 12-16-2022 End: 02-15-2023 Hemoglobin A1c in Blood [facility] Work Phone: Comment on above: Expected: 12/16/2022, Expires: Start: 12-16-2022 End: 02-15-2023 Lipid 1996 panel - Serum or Plasma [facility] Work Phone: Comment on above: Expected: 12/16/2022, Expires: 3 Start: 12-16-2022 End: 02-15-2023 TESTOSTERONE, FREE AND TOTAL [facility] Work Phone: Comment on above: Expected: 12/16/2022, Expires: 3 Start: 12-16-2022 End: 02-15-2023 Thyrotropin [Units/volume] in Serum or Plasma [facility] Work Phone: Comment on above: Expected: 12/16/2022, Expires: 3 Start: 12-10-2022 COVID-19 Vaccine () COVID-19 Vaccine () [facility] Start: 12-10-2022 Influenza vaccination INFLUENZA (#1) [facility] Start: 11-27-2022 DIABETES SCREEN DIABETES SCREEN [facility] Start: 01-11-2022 End: 03-13-2022 Comprehensive metabolic 2000 panel - Serum or Plasma COMP METABOLIC PANEL Lab Routine Obesity, Class I, BMI 30-34.9 Expected: 01/11/2022, Expires: 03/13/2022 [facility] Work Phone: Comment on above: Expected: 01/11/2022, Expires: 2 Start: 01-11-2022 End: 03-13-2022 Lipid 1996 panel - Serum or Plasma LIPID PANEL BASIC Lab Routine Obesity, Class I, BMI 30-34.9 Expected: 01/11/2022, Expires: 03/13/2022 [facility] Work Phone: Comment on above: Expected: 01/11/2022, Expires: 2 Start: 12-10-2021 Influenza vaccination INFLUENZA (#1) [facility] Start: 08-04-2021 End: 10-04-2021 Chronic hepatitis differentiation between hepatitis B and C virus panel - Serum or Plasma HEP REMOTE PANEL BL Lab Routine Positive hepatitis C antibody test Expected: 08/04/2021, Expires: 10/04/2021 [facility] Work Phone: Comment on above: Expected: 08/04/2021, Expires: 2 Start: 08-04-2021 End: 10-04-2021 HEPATIC FUNCTION PNL HEPATIC FUNCTION PNL Lab Routine Positive hepatitis C antibody test Expected: 08/04/2021, Expires: 10/04/2021 [facility] Work Phone: Comment on above: Expected: 08/04/2021, Expires: 2 Start: 02-17-2020 COLOGUARD (FIT-DNA) COLOGUARD (FIT-DNA) [facility] Start: 02-17-[address] [facility] Start: 02-17-2020 COLORECTAL CANCER SCREENING COLORECTAL CANCER SCREENING [facility] Start: 02-17-[address] COLONOGRAP[address] [facility] Start: 02-17-2020 FECAL OCCULT BLOOD FECAL OCCULT BLOOD [facility] Start: 02-17-2020 Screening for malignant neoplasm of colon [facility] Start: 02-17-[address] [facility] Start: 01-10-2020 Influenza vaccination Influenza Vaccine (#1) [facility] Start: 02-15-2018 Cholesterol [Mass/Vol] Cholesterol [facility] Start: 02-15-2018 Lipid panel Cholesterol [facility] Start: 1994 HEPATITIS A (1 of 2 - Risk 2-dose series) HEPATITIS A (1 of 2 - Risk 2-dose series) [facility] Start: 1994 Hepatitis A (HAV) Vaccine (1 of 2 - Risk 2-dose series) Hepatitis A (HAV) Vaccine (1 of 2 - Risk 2-dose series) [facility] Start: 1994 Hepatitis A Vaccine (1 of 2 - Risk 2-dose series) Hepatitis A Vaccine (1 of 2 - Risk 2-dose series) [facility] Start: 1994 Hepatitis B vaccination Hepatitis B (HBV) Vaccine (1 of 3 - 19+ 3-dose series) [facility] Start: 1994 TWO PNEUMOVAX 5 YEARS APART PRIOR TO AGE 65 (#1) TWO PNEUMOVAX 5 YEARS APART PRIOR TO AGE 65 (#1) [facility] Start: 1993 Hepatitis C antibody, confirmatory test Hepatitis C Antibody [facility] Start: 1993 Hepatitis C screening Hepatitis C Antibody [facility] Start: 1993 Tetanus + diphtheria + acellular pertussis vaccine (product) Tdap Booster [facility] Start: 02-17-1976 HEPATITIS A (1 of 2 - Risk 2-dose series) HEPATITIS A (1 of 2 - Risk 2-dose series) [facility] Start: 1975 COVID-19 Vaccine (#1) COVID-19 Vaccine (#1) [facility] Start: 1975 HEPATITIS B (1 of 3 - 3-dose series) HEPATITIS B (1 of 3 - 3-dose series) [facility] Start: 1975 Hepatitis B Vaccine (1 of 3 - 3-dose series) Hepatitis B Vaccine (1 of 3 - 3-dose series) [facility] Start: 1975 Screening for malignant neoplasm of colon Colonoscopy [facility] End: 02-02-2024 COLONOSCOPY DIAGNOSTIC COLONOSCOPY DIAGNOSTIC Endoscopy Routine Abdominal pain, left lower quadrant Rectal bleeding 1 Occurrences starting 02/01/2023 until 02/02/2024 [facility] Work Phone: Comment on above: 1 Occurrences starting 02/01/2023 until 02/02/2024 COVID & INFLUENZA A/ B & RSV PCR, ROUTINE COVID & INFLUENZA A/B & RSV PCR, ROUTINE Microbiology Routine Suspected COVID-19 virus infection 12/19/2023 11:31 AM EDT [facility] Work Phone: CYSTO/TRUS ONLY CYSTO/TRUS ONLY Procedures Routine Bladder wall thickening Urgency of urination Mixed stress and urge urinary incontinence Ordered: 01/23/[address] [facility] Comment on above: Ordered: 01/23/2024 Dstrj lesion anus sm pl eltrdsiccation DESTRUCTION OF ANAL CONDYLOMA VIA ELECTRODESICCATION SIMPLE Anal warts ME OR End: 10-31-2024 EPIL EEG ROUTINE EPIL EEG ROUTINE NEUROLOGY Routine History of seizure Seizure disorder (HCC) 1 Occurrences starting 11/01/2023 until 10/31/2024 [facility] Work Phone: Comment on above: 1 Occurrences starting 11/01/2023 until 10/31/2024 End: 03-01-2024 WILLIAN DIAGNOSTIC LEFT WILLIAN DIAGNOSTIC LEFT Radiology Routine Subareolar mass of left breast 1 Occurrences starting 01/31/2023 until 03/01/2024 [facility] Work Phone: Comment on above: 1 Occurrences starting 01/31/2023 until 03/01/2024 End: 11-08-2024 MR Ankle - left WO contrast MRI ANKLE WO IVCON LEFT Radiology Routine Chronic pain of left ankle 1 Occurrences starting 10/10/2023 until 11/08/2024 [facility] Work Phone: Comment on above: 1 Occurrences starting 10/10/2023 until 11/08/2024 End: 02-17-2025 MR Brain WO and W contrast IV MRI BRAIN WO/W IVCON Radiology Routine Sensorineural hearing loss (SNHL) of left ear with unrestricted hearing of right ear 1 Occurrences starting 01/19/2024 until 02/17/2025 [facility] Work Phone: Comment on above: 1 Occurrences starting 01/19/2024 until 02/17/2025 POST VOID RESIDUAL POST VOID RES IDUAL Procedures Routine Bladder wall thickening Ordered: 01/23/[address] [facility] Comment on above: Ordered: 01/23/2024 Removal impacted cer umen instrumentation unilat [facility] MGMT EAR WAX REMOVA Procedures Routine Impacted cerumen of left ear Ordered: 09/24/2021 [facility] Work Phone: Comment on above: Ordered: 09/24/2021 SURGICAL PATHOLOGY [facility] Work Phone: Comment on above: Release Upon Ordering for 1 Occurrences starting 02/17/2023, 1 completed End: 03-01-2024 US BREAST LTD LEFT US BREAST LTD LEFT Radiology Routine Subareolar mass of left breast 1 Occurrences starting 01/31/2023 until 03/01/2024 [facility] Work Phone: Comment on above: 1 Occurrences starting 01/31/2023 until 03/01/2024 XR Foot - left AP an d Lateral and oblique XR FOOT GENERAL 3V AP/LAT/OBL LEFT Radiology Routine Pain in left foot 10/10/2023 10:47 AM EDT [facility] Work Phone: [facility] Immunizations Immunization Date Immunization Notes Care Provider Vielka johnson 01-30-2024 hepatitis A and hepatitis B vaccine Francisco Javier Osorio MD Work Phone: [facility] 06-13-2023 hepatitis A and hepatitis B vaccine Edel Perdue TEST RACK OPERATOR.WAREHOUSE ASSOCIATE Work Phone: [facility] 05-02-2023 hepatitis A and hepatitis B vaccine Edel Perdue TEST RACK OPERATOR.WAREHOUSE ASSOCIATE Work Phone: [facility] 01-31-2023 COVID-19 vaccine, ag e 12+ yr, 2022- season (Razer) Francisco Javier Osorio MD Work Phone: [facility] Work Phone: 12-16-2022 influenza, injectable, quadrivalent, contains preservative Catarina Older TEST RACK OPERATOR.SENIOR CONTRACT SPECIALIST Work Phone: [facility] 12-16-2022 influenza virus vaccine, unspecified formulation Xr Mob Work Phone: [facility] 01-11-2022 COVID-19 booster vaccine, age 12+ yr, bivalent (PFIZER-BIONTECH) Catarina Older TEST RACK OPERATOR.SENIOR CONTRACT SPECIALIST Work Phone: [facility] 01-11-2022 influenza, injectable, quadrivalent, contains preservative Catarina Older TEST RACK OPERATOR.SENIOR CONTRACT SPECIALIST Work Phone: [facility] 12-23-2020 influenza, injectable, quadrivalent, contains preservative Francisco Javier Osorio MD Work Phone: [facility] Work Phone: 12-23-2020 pneumococcal conjugate vaccine, 13 valent Francisco Javier Osorio MD Work Phone: [facility] Work Phone: 07-31-2020 COVID-19 vaccine, full dose (MODERNA) Francisco Javier Osorio MD Work Phone: [facility] Work Phone: 07-03-2020 COVID-19 vaccine, full dose (MODERNA) Francisco Javier Osorio MD Work Phone: [facility] Work Phone: 01-16-2020 influenza, injectable, quadrivalent, contains preservative Francisco Javier Osorio MD Work Phone: [facility] 01-29-2019 influenza, injectable, quadrivalent, contains preservative Francisco Javier Osorio MD Work Phone: [facility] Work Phone: 04-02-2018 tetanus toxoid, reduced diphtheria toxoid, and acellular pertussis vaccine, adsorbed Francisco Javier Osorio MD Work Phone: [facility] Work Phone: 02-13-2013 influenza nasal, unspecified formulation Francisco Javier Osorio MD Work Phone: [facility] Work Phone: 02-13-2013 influenza virus vaccine, unspecified formulation Jake Conrad [facility] Payers Date Payer Category Payer Private Health Insurance [employer]ET[employer] A ANTONIO [facility] [id number] 2021-Present [phone] [address] [place] [address] PPO [id number] 2021 Private Health Insurance [employer] A ETNA [facility] [id number] 2021-Present [phone] [address] [place] [address] PPO [id number] 2021 Private Health Insurance [id number] 2017 Unknown [id number] Unknown ANTHEM - BLUE CR OSS BLUE CROSS/HMO,PPO,POS [id number] Effective for all dates [place], [place] PPO [id number] Social History Date Type Detail Facility Start: 02-13-2013 End: 01-11-2022 Tobacco smoking status NHIS Never smoker [facility] Start: 02-13-2013 Alcohol intake Current non-drinker of alcohol (finding) [facility] Start: 1975 Sex Assigned At Not on file [facility] Start: 06-03-2017 End: 01-11-2022 Tobacco use and exposure Smokeless tobacco non-user [facility] Start: 06-25-2021 End: 01-30-2024 Alcohol intake Current drinker of alcohol (finding) [facility] Start: 06-24-2021 End: 03-11-2022 History SDOH Alcohol Frequency [address] [facility] Start: 06-24-2021 End: 03-11-2022 History SDOH Alcohol Std Drinks [address] [facility] Start: 02-27-2018 History SDOH Alcohol Comment once a month [facility] Start: 06-24-2021 History SDOH Social Connections Phone [address] [facility] Start: 06-24-2021 End: 03-11-2022 History SDOH Social Connections Living [address] [facility] Start: 11-28-[address] [facility] Start: 1975 Sex Assigned At Male [facility] Start: 06-01-2020 End: 12-16-2021 Exposure to SARS-CoV-2 (event) Not sure [facility] Work Phone: Start: 03-11-2022 End: 11-04-2022 History of Social function [facility] Start: 03-11-2022 End: 11-04-2022 Social connection and isolation panel [facility] In a typical week, h ow many times do you talk on the telephone with family, friends, or neighbors? Patient refused [facility] Are you now , , , , never or living with a partner? Refused [facility] How often to you hav e a drink containing alcohol? Monthly or less [facility] How many standard dr inks containing alcohol do you have on a typical day? [address] [facility] How often do you hav e 6 or more drinks on 1 occasion? Never [facility] Do you feel stress - tense, restless, nervous, or anxious, or unable to sleep at night because your mind is troubled all the time - these days [OSQ] Only a little [facility] (I/We) worried lani er (my/our) food would run out before (I/we) got money to buy more. DK or Refused [facility] Start: 11-28-2019 Gender identity Identifies as male gender (finding) [facility] Start: 11-28-2019 Sexual orientation Homosexual (finding) [facility] [facility] Has the [employer], [employer], or [employer] threatened to shut off services in your home in past 12Mo No [facility] Do you belong to any clubs or organizations such as nondenominational groups, unions, fraternal or athletic groups, or school groups? Yes [facility] Are you now , , , , never or living with a partner? [facility] How often to you hav e a drink containing alcohol? 2-[address] time [address] [facility] Do you feel stress - tense, restless, nervous, or anxious, or unable to sleep at night because your mind is troubled all the time - these days [OSQ] To some extent [facility] (I/We) worried wheth er (my/our) food would run out before (I/we) got money to buy more. Never true [facility] Medical Equipment Procedure Code Equipment Code Equipment Origin al Text Equipment Identifier Dates System [employer] ge [employer] Fixation Sterile Achilles - [id number] Start: 02-01-2024 Clinical Notes 02-27-2018 to 02-06-2024 Telephone Encounter - Frances Kam RN - 02/06/2024 10:27 PM EDTTelephone Encounter - Frances Kam RN - 02/06/2024 10:27 PM SARITATFrancisco Javier Osorio MD - 01/30/2024 6:06 PM EDT Note Date & Type Note Facility 02-06-2024 Telephone encounter Note Reason for Call: constipation Patient has been identified by name and Date of : Yes Patient: Aston Napoles Date of : 1975 Provider for this encounter : Francisco Javier Osorio MD Reason for call: Triage Was an appointment scheduled: No Reason for requesting visit (RFV/signs and symptoms/diagnosis) : constipation and vomiting Person calling: self Return call to: self Call patient at: on cell Appt needed: Within 24 hours [phone] (home) [phone] (cell) Payor: AETNA / Plan: AETNA [employer] / Product Type: PPO / Frances Kam RN Outcome: Advised to be seen within 24 hours. Caller also given alternate options for care including [facility], emergency department for worsening symptoms. Frances Kam RN Reason for Disposition Last bowel movement (BM) > 4 days ago Answer Assessment - Initial Assessment Questions 1. STOOL PATTERN OR FREQUENCY: the morning of the surgery 2. STRAINING: moves air 3. ONSET: today 5. RECTAL PAIN:denies 6. BM COMPOSITION: none 7. BLOOD ON STOOLS: denies 8. CHRONIC CONSTIPATION: new 8. CHANGES IN DIET OR HYDRATION: not drinking enough water no eating enough fiber 9. MEDICINES: colace and is narcotic pain medicine 10. LAXATIVES: none 11. ACTIVITY: just had surgery 12. CAUSE: see above 13. MEDICAL HISTORY: none 14. OTHER SYMPTOMS: vomit and nausea Protocols used: [id number] [facility] 02-06-2024 Miscellaneous Notes Reason for Call: constipation Patient has been identified by name and Date of : Yes Patient: Aston Napoles Date of : 1975 Provider for this encounter : Francisco Javier Osorio MD Reason for call: Triage Was an appointment scheduled: No Reason for requesting visit (RFV/signs and symptoms/diagnosis) : constipation and vomiting Person calling: self Return call to: self Call patient at: on cell Appt needed: Within 24 hours [phone] (home) [phone] (cell) Payor: [employer]ETBERNADETTE / Plan: AETNA [facility] [employer] / Product Type: PPO / Frances Kam RN Outcome: Advised to be seen within 24 hours. Caller also given alternate options for care including [facility], emergency department for worsening symptoms. Frances Kam RN Reason for Disposition Last bowel movement (BM) > 4 days ago Answer Assessment - Initial Assessment Questions 1. STOOL PATTERN OR FREQUENCY: the morning of the surgery 2. STRAINING: moves air 3. ONSET: today 5. RECTAL PAIN:denies 6. BM COMPOSITION: none 7. BLOOD ON STOOLS: denies 8. CHRONIC CONSTIPATION: new 8. CHANGES IN DIET OR HYDRATION: not drinking enough water no eating enough fiber 9. MEDICINES: colace and is narcotic pain medicine 10. LAXATIVES: none 11. ACTIVITY: just had surgery 12. CAUSE: see above 13. MEDICAL HISTORY: none 14. OTHER SYMPTOMS: vomit and nausea Protocols used: [id number] documented in this encounter [facility] 02-01-2024 Note HNO ID: [id number] Author: HEATHER DORMAN APRN.CRNA Service: Anesthesiology Author Type: Nurse [employer] Supervisor Type: Anesthesia Procedure Notes Filed: 02/01/2024 11:49 Note Text: ANESTHESIOLOGY PROCEDURE NOTE Airway General Information Procedure Start Time/Medication Administration: 02/01/2024 11:31 AM Procedure End Time: 02/01/2024 11:31 AM Patient location during procedure: OR Timeout Performed Pre-procedure: timeout performed Consent Obtained: Yes Patient identity confirmed: patient Staffing Performed by: TELEVISION JOURNALIST Indications and Patient Condition Indications for airway management: anesthesia Preoxygenated: yes anesthesia circuit Patient position: sniffing Method: asleep Final Airway Details Final airway type: supraglottic airway Number of attempts at approach: 1 Final Supraglottic Airway: i-gel Size 5 Seal Adequate: yes Comments Easy atraumtic lma 5 SIGNATURE: Heather Dorman APRN.CRNA PATIENT NAME: Aston Napoles DATE: February 01, 2024 TIME: 11:48 AM CSN: [id number] [facility] 02-01-2024 Note HNO ID: [id number] Author: JONATHAN BUTLER MD Service: Anesthesiology Author Type: Anesthesiologist Type: Anesthesia Procedure Notes Filed: 02/01/2024 11:20 Note Text: ANESTHESIOLOGY PROCEDURE NOTE Peripheral Nerve Block General Information Procedure Start Time/Medication Administration: 02/01/2024 10:48 AM Procedure End time: 02/01/2024 10:55 AM Patient location during procedure: pre-op Timeout Performed Pre-procedure: timeout performed Consent Obtained: Yes Patient identity confirmed: arm band and patient Reason for block: post-op pain management/at surgeon's request Staffing Anesthesiologist: Jonathan Butler MD Performed by: anesthesiologist Preparation Sterility Preparation: hand hygiene performed prior to procedure, sterile gloves, drapes, and procedure tray, surgical cap used, mask used, sterile drape used during line insertion, skin prep agent completely dried prior to procedure Site Prep: Chloraprep Pre-Procedure Neuro Exam Location: LLE Sensory: intact Motor: intact Procedure Details Patient Position: prone Monitoring: Pulse OX, EKG and NIBP Block Type Lower Extremity: popliteal Approach: popliteal fossa Laterality: left Injection Technique: single-shot Ultrasound Guided: Yes Image in Chart: yes Local Infiltration: Yes Needle Needle Type: blunt and echogenic Needle Gauge: 21 G Needle Length: 50 mm Needle Localization: ultrasound Test Dose Response: negative test dose Assessment Injection assessment: negative aspiration, no paresthesia on injection, incremental injection and local visualized surrounding nerve on ultrasound Paresthesia: none Post-Procedure Neuro Exam Expected Regional Anesthesia: Yes Medications Administered bupivacaine (PF) 0.5 % (5 mg/mL) injection - peripheral nerve block 10 mL - 02/01/2024 10:48:00 AM bupivacaine liposome (PF) 1.3 % (13.3 mg/mL) injection (EXPAREL) - peripheral nerve block 133 mg - 02/01/2024 10:48:00 AM SIGNATURE: Jonathan Butler MD PATIENT NAME: Aston Napoles DATE: February 01, 2024 TIME: 11:19 AM CSN: [id number] [facility] 01-30-2024 Note HNO ID: [id number] Author: FRANCISCO JAVIER OSORIO MD Service: ? Author Type: Physician Type: Progress Notes Filed: 01/30/2024 18:42 Note Text: This note was created using [employer]. Subjective Aston Napoles is a 48 year old male. He was dealing with health issues. He was scheduled for Achilles tendon surgery. He was being worked up for hearing loss. He was diagnosed with keratoconus. Urology was evaluating bladder abnormality. His anxiety and depression were stable. Review of Systems Constitutional: Negative for fatigue and fever. Respiratory: Negative for cough and shortness of breath. Cardiovascular: Negative for chest pain and palpitations. Gastrointestinal: Negative for abdominal pain. Neurological: Negative for dizziness and headaches. 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 Physical Exam Constitutional: Appearance: Normal appearance. HENT: Head: Normocephalic. Eyes: Conjunctiva/sclera: Conjunctivae normal. Cardiovascular: Rate and Rhythm: Normal rate and regular rhythm. Heart sounds: No murmur heard. No gallop. Pulmonary: Breath sounds: Normal breath sounds. Musculoskeletal: Right lower leg: No edema. Left lower leg: No edema. Neurological: Mental Status: He is alert. Assessment and Plan 1. Anxiety and depression - ICD9: 300.00, 311, ICD10: F41.9, F32.A (primary diagnosis) - Continue medications. 2. Achilles tendinitis of left lower extremity - ICD9: 726.71, ICD10: M76.62 - for surgery. 3. Hyperlipidemia, unspecified hyperlipidemia type - ICD9: 272.4, ICD10: E78.5 - Control undetermined, due for labs next year. - Counseled on healthy diet and regular exercise - COMPREHENSIVE METABOLIC PANEL - LIPID PANEL BASIC Francisco Javier Osorio MD [facility] 01-30-2024 History of Present illness Narrative This note was created using [employer]. Subjective Aston Napoles is a 48 year old male. He was dealing with health issues. He was scheduled for Achilles tendon surgery. He was being worked up for hearing loss. He was diagnosed with keratoconus. Urology was evaluating bladder abnormality. His anxiety and depression were stable. Review of Systems Constitutional: Negative for fatigue and fever. Respiratory: Negative for cough and shortness of breath. Cardiovascular: Negative for chest pain and palpitations. Gastrointestinal: Negative for abdominal pain. Neurological: Negative for dizziness and headaches. 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 HENT: Head: Normocephalic. Eyes: Conjunctiva/sclera: Conjunctivae normal. Cardiovascular: Rate and Rhythm: Normal rate and regular rhythm. Heart sounds: No murmur heard. No gallop. Pulmonary: Breath sounds: Normal breath sounds. Musculoskeletal: Right lower leg: No edema. Left lower leg: No edema. Neurological: Mental Status: He is alert. Assessment and Plan 1. Anxiety and depression - ICD9: 300.00, 311, ICD10: F41.9, F32.A (primary diagnosis) - Continue medications. 2. Achilles tendinitis of left lower extremity - ICD9: 726.71, ICD10: M76.62 - for surgery. 3. Hyperlipidemia, unspecified hyperlipidemia type - ICD9: 272.4, ICD10: E78.5 - Control undetermined, due for labs next year. - Counseled on healthy diet and regular exercise - COMPREHENSIVE METABOLIC PANEL - LIPID PANEL BASIC Francisco Javier Osorio MD documented in this encounter [facility] 01-24-2024 Note HNO ID: [id number] Author: ?, ?, ? Service: ? Author Type: ? Type: Progress Notes Filed: 01/24/2024 14:17 Note Text: Called patient and LVM to call our office back to schedule. Thanks Lorie Fatima [facility] 01-23-2024 Instructions Jonathan Foster APRN.CNP, DNP - 01/23/2024 9:49 AM EDT Follow up with Jonathan Foster APRN.CNP, DNP in 3 months Labs today - PSA Schedule CT scan Your Cysto/TRUS our Bob team will call you to schedule. A Cystoscopy is a procedure that allows your doctor to examine the lining of your bladder and the tube that carries urine out of your body (urethra). A hollow tube (cystoscope) equipped with a lens is inserted into your urethra and slowly advanced into your bladder. This is a very quick outpatient procedure completed at one of our Urology offices. Transrectal ultrasound (TRUS) is a 5- to 15-minute outpatient procedure that uses sound waves to create a video image of the prostate gland. A small, lubricated probe placed into the rectum releases sound waves, which create echoes as they enter the prostate. Avoid bladder irritants - coffee, tea, cola drinks, chocolate, alcohol, artificial sweeteners and cigarettes Lower urinary tract symptoms suggestive of benign prostatic enlargement. I discussed treatment options at length including r/b/a of each: To include Medication therapy and the role of further evaluation with UDS, TRUS and cysto if indicated. Return to the clinic or seek care at Express[facility]Urgent Care for any worsening signs or symptoms: such as fevers, chills, worsening pain, gross blood in urine or worsening urinary symptoms. For severe symptoms seek care at the closest ER. Plan of care, medicaiton side effects and management reviewed with patient. Healthy Habits: Recommend regular physical activity, nutrition and healthy eating habits. Consume a variety of foods every day focusing on fruits, vegetables and lean meats). Eat foods low in fat, saturated fat and cholesterol. Eat a limited amount of salt and sodium. Drink adequate amounts of water and limit sugary drinks. Exercise portion control in meal selection. Establish a mindset of a wellness approach to health. Thank you for allowing me to provide your care today. I look forward to seeing you again and maintaining your health. Jonathan Foster APRN.GILBERTO LIM documented in this encounter [facility] 01-23-2024 Note HNO ID: [id number] Author: ESSIE ANGLIN LPN Service: ? Author Type: LICENSED NURSE Type: Progress Notes Filed: 01/23/2024 13:06 Note Text: Verified name and date of . CC Post Void Residual HPI: P atient is here now for an appointment with Selina Castillo APRN, DNP Procedure: Explained procedure to patient and verbalizes understanding. Performed a PVR. Patient urinated and instructed to empty bladder as much as possible just prior to having PVR done using bladder ultrasound scanner. Results of scan: 0 mL The patient tolerated the procedure well. Plan: Appointment with Jonathan. [facility] 01-23-2024 History of Present illness Narrative Verified name and date of . CC Post Void Residual HPI: Tavo wells is here now for an appointment with Selina Castillo APRN, DNP Procedure: Explained procedure to patient and verbalizes understanding. Performed a PVR. Patient urinated and instructed to empty bladder as much as possible just prior to having PVR done using bladder ultrasound scanner. Results of scan: 0 mL The patient tolerated the procedure well. Plan: Appointment with Jonathan. Images from the original note were not included. [facility] MALE PATIENT - HISTORY AND PHYSICAL EXAMINATION PATIENT: Aston Napoles (48 year old) PCP: Francisco Javier Osorio MD CHIEF COMPLAINT: Bladder thickening HISTORY OF PRESENT ILLNESS: 48 year old year old male with Bladder thickening on CT Seen in January of 2023 for abd pain by GS. CT of Abd completed showing Bladder thickening. Presents for follow up. Past med Hx: DENNIS, MDD, KEYLA, Seizure d/o, HLD, Vit D def. C/o urgency symptoms for the past year. Occasional leakage. No smoking hx. PRESENTING HISTORY: Hematuria: none Obstructive voiding symptoms: weak stream and incomplete emptying. Irritative voiding symptoms: frequency and urgency Urinary retention: no Urinary incontinence: no Urinary tract infection: no No family hx of Prostate Cancer Patient Entered Questionnaires: INTERNATIONAL PROSTATE SYMPTOM SCORE (I-PSS) 1)INCOMPLETE EMPTYING Over the past month, how often have you had a sensation of not emptying your bladder completely after you finished urinating? SCORE: 4- More than half the time 2)FREQUENCY Over the past month, how often have you had to urinate again less than two hours after you finished urinating? SCORE: 4- More than half the time 3)INTERMITTENCY Over the past month, how often have you found you stopped and started again several times when you urinated? SCORE: 5- Almost always 4)URGENCY Over the past month, how often have you found it difficult to postpone urination? SCORE: 3- About half the time 5)WEAK STREAM Over the past month, how often have you had a weak stream? SCORE: 4- More than half the time 6)STRAINING Over the past month, how often have you had to push or strain to begin urination SCORE: 0- Not at all 7)NOCTURIA Over the past month, how many times did you most typically get up to urinate from the time you went to bed at night until the time you get up in the morning? SCORE:0 TOTAL I-PSS SCORE: 20 QUALITY OF LIFE DUE TO URINARY SYMPTOMS If you were to spend the rest of yur life with your urinary condition just the way it is now, how would you feel about that? 5- Unhappy PROMIS Global Health 06/24/2021 10/26/2021 10/30/2023 PROMIS Global Health Scale Physical Health Percentile 41 53 7 Mental Health Percentile 34 73 34 Percentiles provide an indication of how the patient's score ranks in relation to the general population. Higher percentile rankings indicate better function/quality of life. 50th percentile is the average of the general population and indicates half of respondents had a worse score. 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 02/04/2019 Seasonal allergic rhinitis 02/27/2018 Seizure disorder (HCC) 2001 twice initially, then none on medication for 9 years, weaned off successfully Somnolence, daytime 02/27/2018 PAST SURGICAL HISTORY Procedure Laterality Date APPENDECTOMY 1998 COLONOSCOPY SCREENING N/A 02/17/2023 future colonoscopies need MAC EXCISION PILONIDAL CYST/SINUS SIMPLE INGUINAL HERNIA REPAIR HX Bilateral 1993 1992 and 1993 each side PAST SURGICAL HISTORY OF 08/10/2023 DESTRUCTION OF ANAL CONDYLOMA SKIN BIOPSY HX TONSILLECTOMY HX 1979 Social History Tobacco Use Smoking status: Never Smokeless tobacco: Never Vaping Use Vaping status: Never Used Substance Use Topics Alcohol use: Yes Comment: once a month Drug use: Never FAMILY HISTORY Problem Relation Age of Onset Hypertension Mother Heart Attack Father 60 sudden Hypertension Father No Known Problems Sister No Known Problems Brother Colon Cancer Maternal Grandfather 72 Heart disease Paternal Grandmother Heart disease Paternal Grandfather MEDICATIONS: Current Outpatient Medications Medication Sig predniSONE (DELTASONE) 20 mg tablet Take 2 tablets by mouth once daily for 7 days. triamcinolone acetonide (KENALOG) 0.1 % cream Apply 1 application to affected area two times a day. ciprofloxacin-dexAMETHasone (CIPRODEX) 0.3-0.1 % otic suspension Use 4 Drops in the ears two times a day. 4 drops to affected ear twice daily for 7-10 days. clotrimazole-betamethasone (LOTRISONE) cream Apply to affected area two times a day as needed. fluticasone (FLONASE) 50 mcg/actuation nasal spray Use 2 Sprays in each nostril once daily. Rinse mouth after use. aspirin/acetaminophen/caffeine (EXCEDRIN MIGRAINE ORAL) Take 2 tablets by mouth every 8 hours as needed. naproxen sodium (ALEVE ORAL) Take 1 tablet by mouth every 8 hours as needed. DULoxetine (CYMBALTA) 30 mg capsule Take 1 capsule by mouth once daily. albuterol HFA (VENTOLIN HFA) 90 mcg/actuation inhaler Inhale 2 Puffs as instructed every 4 hours as needed for wheezing/shortness of breath. COMPOUNDED PRESCRIPTION Increase CPAP setting to 13 cm H2O pressure. Dx: KEYLA CPAP Initiate CPAP @ 11 cm of water with humidification. Mask (per patient preference) optional chin strap (if indicated) , filters, tubing, humidifier and lifetime supplies. CETIRIZINE HCL (ZYRTEC ORAL) Take 1 tablet by mouth two times a day. 10 MG iv contrast (will be provided with radiology test) CT Urogram WO/W Inject, intravenously, once for 1 dose.No IV access, insert saline lock prior to the beginning of sedation, infusion, injection of imaging exam. Discontinue saline lock post exam. If Pt. has a central line or IVAD, may access for administration according to line specific nursing protocol. Once exam is complete flush line and de-access according to line specific nursing protocol in the CT contrast administration guidelines link. 0.9 % sodium chloride (NACL 0.9%) infusion Administer at rate defined per CT contrast administration specifications. To be provided with radiology test. No current facility-administered medications for this visit. LABS: Latest Ref Rng 01/23/2024 GLUCOSE UA (POCT) Negative mg/dL Negative BILIRUBIN UA (POCT) Negative Negative KETONE UA (POCT) Negative mg/dL Negative SPECIFIC GRAVITY UA (POCT) 1.005 - 1.030 >=1.030 HEMOGLOBIN/BLOOD UA (POCT) Negative Negative PH UA (POCT) 4.5 - 8.0 6.0 PROTEIN UA (POCT) Negative mg/dL 30 ! UROBILINOGEN UA (POCT) Normal E.U./dL 1.0 NITRITE UA (POCT) Negative Negative LEUKOCYTES UA (POCT) Negative Negative COLOR UA (POCT) Dark yellow CLARITY UA (POCT) Slightly Cloudy Legend: ! Abnormal Creatinine Creatinine Date Value Ref Range Status 11/01/2023 0.84 0.73 - 1.22 mg/dL Final 12/16/2022 0.90 0.73 - 1.22 mg/dL Final 11/28/2019 Test sent to [facility]. 0.73 - 1.22 mg/dL Final Comment: Account Credited HIDE 04/14/2018 1.16 0.73 - 1.22 mg/dL Final PSA No results found for: PSA OFFICE DATA: POST-VOID RESIDUAL BLADDER VOLUME: YES, 0 cc IMAGING: From [facility] Review of Systems: PAIN ASSESSMENT: CURRENTLY HAVING NO PAIN GENERAL: No weight loss, malaise or fevers GI: No nausea, vomiting MUSCULOSKELETAL: Negative for generalized joint pain SKIN: Negative for rash HEMATOLOGY/LYMPHOLOGY: Negative for swollen nodes All other systems reviewed and noncontributory PHYSICAL EXAMINATION: The sensitive examination was discussed with the Patient or Patient's Authorized Bdc Manager. As applicable, any other physician, advance practice provider, medical student, or other health professional student that will be observing or involved in the sensitive examination for educational or training purposes was discussed with the Patient or Authorized Bdc Manager. The Patient or Authorized Bdc Manager has agreed to proceed with the sensitive examination. (Sensitive examination includes inspection and/or palpation of the breasts, pelvis, prostate and anorectal regions) VITALS: BP 140/88 (BP Site: Right Arm, BP Position: Sitting, BP Cuff Size: Regular Adult) Pulse 96 Temp 36.1 C (97 F) (Temporal) Resp 14 Ht 172.3 cm (5' 7.84 ) Wt 100.7 kg (222 lb) SpO2 97% BMI 33.92 kg/m GENERAL: alert, no distress, normal affect RESPIRATORY: normal effort GENITAL: - SCROTUM: no rashes, no edema RECTAL: approximately 25 g prostate, no nodules, slightly boggy. PELVIC FLOOR: good tone, no tenderness, EXTREMITIES: normal SKIN: normal NEUROLOGIC: normal ASSESSMENT and PLAN ASSESSMENT/PLAN: 1. Bladder wall thickening - ICD9: 596.89, ICD10: N32.89 (primary diagnosis) 48y/o male with CT from 1 year ago showing bladder wall thickening. No gross hematuria. Prostate not sig enlarged, slightly boggy. ARTIS Normal/No FHX of prostate cancer. May have PF dx vs prostatitis vs OAB. PVR = 0ml UA = prot I discussed treatment options at length including r/b/a of each. I also discussed the role of further evaluation with UDS, TRUS and cysto if indicated. Plan: CTU and Cysto/TRUS Consider trial of Flomax and Trospium Consider PFPT consult Kegel exercises Avoid bladder irritants - coffee, tea, cola drinks, chocolate, alcohol, artificial sweeteners and cigarettes - CT UROGRAM WO/W IVCON - IV CONTRAST (RADIOLOGY PROCEDURE) - SODIUM CHLORIDE 0.9 % INTRAVENOUS SOLUTION - POST VOID RESIDUAL - CYSTO/TRUS ONLY 2. Urgency of urination - ICD9: 788.63, ICD10: R39.15 Plan as above - CYSTO/TRUS ONLY 3. Mixed stress and urge urinary incontinence - ICD9: 788.33, ICD10: N39.46 Plan as above - CYSTO/TRUS ONLY 4. Prostate cancer screening - ICD9: V76.44, ICD10: Z12.5 - PSA/PROSTATE SPECIFIC ANTIGEN SCREENING Jonathan Foster DNP, [place] Department of Urology [facility] documented in this encounter [facility] 01-23-2024 Note HNO ID: [id number] Author: JONATHAN FOSTER APRN.GILBERTO LIM Service: ? Author Type: Nurse Practitioner Type: Progress Notes Filed: 01/23/2024 13:06 Note Text: [facility] MALE PATIENT - HISTORY AND PHYSICAL EXAMINATION PATIENT: Aston Napoles (48 year old) PCP: Francisco Javier Osorio MD CHIEF COMPLAINT: Bladder thickening HISTORY OF PRESENT ILLNESS: 48 year old year old male with Bladder thickening on CT Seen in January of 2023 for abd pain by GS. CT of Abd completed showing Bladder thickening. Presents for follow up. Past med Hx: DENNIS, MDD, KEYLA, Seizure d/o, HLD, Vit D def. C/o urgency symptoms for the past year. Occasional leakage. No smoking hx. PRESENTING HISTORY: Hematuria: none Obstructive voiding symptoms: weak stream and incomplete emptying. Irritative voiding symptoms: frequency and urgency Urinary retention: no Urinary incontinence: no Urinary tract infection: no No family hx of Prostate Cancer Patient Entered Questionnaires: INTERNATIONAL PROSTATE SYMPTOM SCORE (I-PSS) 1)INCOMPLETE EMPTYING Over the past month, how often have you had a sensation of not emptying your bladder completely after you finished urinating? SCORE: 4- More than half the time 2)FREQUENCY Over the past month, how often have you had to urinate again less than two hours after you finished urinating? SCORE: 4- More than half the time 3)INTERMITTENCY Over the past month, how often have you found you stopped and started again several times when you urinated? SCORE: 5- Almost always 4)URGENCY Over the past month, how often have you found it difficult to postpone urination? SCORE: 3- About half the time 5)WEAK STREAM Over the past month, how often have you had a weak stream? SCORE: 4- More than half the time 6)STRAINING Over the past month, how often have you had to push or strain to begin urination SCORE: 0- Not at all 7)NOCTURIA Over the past month, how many times did you most typically get up to urinate from the time you went to bed at night until the time you get up in the morning? SCORE:0 TOTAL I-PSS SCORE: 20 QUALITY OF LIFE DUE TO URINARY SYMPTOMS If you were to spend the rest of yur life with your urinary condition just the way it is now, how would you feel about that? 5- Unhappy PROMIS Global [employer] 06/24/2021 10/26/2021 10/30/2023 PROMIS Global Health Scale Physical Health Percentile 41 53 7 Mental Health Percentile 34 73 34 Percentiles provide an indication of how the patient's score ranks in relation to the general population. Higher percentile rankings indicate better function/quality of life. 50th percentile is the average of the general population and indicates half of respondents had a worse score. 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 02/04/2019 Seasonal allergic rhinitis 02/27/2018 Seizure disorder (HCC) 2001 twice initially, then none on medication for 9 years, weaned off successfully Somnolence, daytime 02/27/2018 PAST SURGICAL HISTORY Procedure Laterality Date APPENDECTOMY 1997 COLONOSCOPY SCREENING N/A 02/17/2023 future colonoscopies need MAC EXCISION PILONIDAL CYST/SINUS SIMPLE INGUINAL HERNIA REPAIR HX Bilateral 1993 1992 and 1993 each side PAST SURGICAL HISTORY OF 08/10/2023 DESTRUCTION OF ANAL CONDYLOMA SKIN BIOPSY HX TONSILLECTOMY HX 1979 Social History Tobacco Use Smoking status: Never Smokeless tobacco: Never Vaping Use Vaping status: Never Used Substance Use Topics Alcohol use: Yes Comment: once a month Drug use: Never FAMILY HISTORY Problem Relation Age of Onset Hypertension Mother Heart Attack Father 60 sudden Hypertension Father No Known Problems Sister No Known Problems Brother Colon Cancer Maternal Grandfather 72 Heart disease Paternal Grandmother Heart disease Paternal Grandfather MEDICATIONS: Current Outpatient Medications Medication Sig predniSONE (DELTASONE) 20 mg tablet Take 2 tablets by mouth once daily for 7 days. triamcinolone acetonide (KENALOG) 0.1 % cream Apply 1 application to affected area two times a day. ciprofloxacin-dexAMETHasone (CIPRODEX) 0.3-0.1 % otic suspension Use 4 Drops in the ears two times a day. 4 drops to affected ear twice daily for 7-10 days. clotrimazole-betamethasone (LOTRISONE) cream Apply to affected area two times a day as needed. fluticasone (FLONASE) 50 mcg/actuation nasal spray Use 2 Sprays in each nostril once daily. Rinse mouth after use. aspirin/acetaminophen/caffeine (EXCEDRIN MIGRAINE ORAL) Take 2 tablets by mouth every 8 hours as needed. naproxen sodium (ALEVE ORAL) Take 1 tablet by mouth every 8 hours as needed. DULoxetine (CYMBALTA) 30 mg capsule Take 1 capsule by mouth once daily. albuterol H (more content not included)... [facility] 01-20-2024 Instructions Gaetano Ambrocio PA-C - 01/20/2024 7:53 AM EDT PATIENT PREOPERATIVE INSTRUCTIONS Carmen Rojas* has scheduled you for your procedure at this surgery center: [facility]: [phone] --[phone] [id number]. Please read below carefully for your personalized instructions. Dietary Restrictions: - No solid food after midnight. - You may have 12 ounces of clear liquids (water, clear juices such as apple juice or gatorade, carbonated beverages, clear tea, black coffee, jello) until 2 hours before scheduled arrival at facility. Medications: Unless instructed differently below, stay on all of your medications until your surgery. Approved medications to take the morning of surgery with a sip of water: ZYRTEC, ALBUTEROL INHALER, FLONASE If you start any new medications after today's visit, please contact the surgeon's office. Blood Thinning Medications: - Stop NSAIDS (Ibuprofen, Advil, Aleve, Motrin, Celebrex, Mobic, etc.) 7 days before surgery, as directed by your surgeon. - Stop Aspirin 7 days before surgery, as directed by your surgeon. - Stop Vitamin E, ALL multi-vitamins, herbals and dietary supplements 7 days before surgery. - You may take Tylenol (Acetaminophen) or any of your pain medications that do not contain aspirin or NSAIDS as needed. Important Reminders: - Candy, mints, and tobacco products are NOT permitted the morning of surgery. - Hearing aids, dentures and glasses may be worn the morning of surgery. - NO jewelry, body piercings, makeup, hairpins or contacts are to be worn the day of surgery. If you develop symptoms such as a fever, cold, or flu, or have other changes to your health within TWO DAYS of scheduled surgery or the morning of surgery, please contact the surgery center above. Personal Belongings: -Bring CPAP with you day of surgery -Please have photo ID and insurance cards. -If you do not have a copy of advance directives on file with us, please bring a copy with you on the day of surgery. - Leave ALL valuables and money at home or with family members. For Outpatient Procedures: - YOU MUST HAVE A RESPONSIBLE FOOD SCIENTIST TAKE YOU HOME. A INJECTION PRESS OPERATOR OR PASTRY ARTIST CANNOT BE MADE A RESPONSIBLE FOOD SCIENTIST. - We recommend that a responsible person stays with you overnight to take care of you. - You cannot stay in a hotel alone after outpatient surgery. You will not be permitted to have your surgery, if you do not have someone to take care of you. Arrival Time for Surgery: - The Surgery Center or hospital where you are having surgery will call the afternoon before surgery (or Tuesday for Tuesday surgery) with a scheduled arrival time. - If you have not heard by 4 pm, please contact the surgery center above. Please be aware that emergency situations arise, which may delay or change your surgical time. If this happens, we will notify you as soon as possible and regret any inconvenience. If you already have an Advance Directive, please fax a copy to [phone] or email to for it to be added to your chart. If you do not have an Advance Directive, you can find the appropriate form and more information at [email or web address]. We recommend that you complete the Advance Directive form found on the website and bring it with you the day of your surgery. It can be witnessed and scanned into your chart that day. Gaetano Ambrocio PA-C [phone] documented in this encounter [facility] 01-20-2024 History and physical note PREANESTHESIA CONSULT CLINIC TELEHEALTH VISIT Patient has been identified by name and date of : Yes This is a virtual visit using [employer] Zoom Video Visit. It require patient-provider interaction for the medical decision making as documented below. Reason for contact: PACC visit Accompanied by: Self This is a virtual visit using Virtual Visit (Audio/Visual) I have discussed the nature of this visit with the patient which will occur via [facility] (Phone, Virtual Visit) and he agrees to proceed with this interaction . It required patient-provider interaction for the medical decision making as documented below. I have communicated my name and active licensure. The patient's identity and physical location were verified at the time of this visit. Either the patient or their legal sales representative womens health has been informed of the risks and benefits of and alternatives to treatment through a remote evaluation and consents to proceed with the evaluation remotely. Scheduled Surgery: Left - REPAIR ACHILLES TENDON SECONDARY Left - OSTECTOMY CALCANEUS Left - RELEASE TENDON EXTREMITY LOWER Left - TRANSFER TENDON EXTREMITY LOWER - (Possible) Subjective CHIEF COMPLAINT: Pre op exam HPI: Patient is a 48 year old male here for PACC. Patient has been seen and evaluated by orthopedic surgeon due to left foot pain. Reports left achilles pain beginning in 2019 with no known injury. Has been found to have achilles tendinitis left. Patient has been recommended for procedure listed above; electing to proceed. 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 02/04/2019 Seasonal allergic rhinitis 02/27/2018 Seizure disorder (HCC) 2001 twice initially, then none on medication for 9 years, weaned off successfully Somnolence, daytime 02/27/2018 PAST SURGICAL HISTORY Procedure Laterality Date APPENDECTOMY 1997 COLONOSCOPY SCREENING N/A 02/17/2023 future colonoscopies need MAC EXCISION PILONIDAL CYST/SINUS SIMPLE INGUINAL HERNIA REPAIR HX Bilateral 1993 1992 and 1993 each side PAST SURGICAL HISTORY OF 08/10/2023 DESTRUCTION OF ANAL CONDYLOMA SKIN BIOPSY HX TONSILLECTOMY HX 1980 FAMILY HISTORY Problem Relation Age of Onset Hypertension Mother Heart Attack Father 60 sudden Hypertension Father No Known Problems Sister No Known Problems Brother Colon Cancer Maternal Grandfather 72 Heart disease Paternal Grandmother Heart disease Paternal Grandfather Social History Tobacco Use Smoking status: Never Smokeless tobacco: Never Vaping Use Vaping status: Never Used Substance Use Topics Alcohol use: Yes Comment: once a month Drug use: No ALLERGIES Allergen Reactions Compazine [Prochlor* Other: See Comments Jittery feeling MEDICATIONS: Current Outpatient Medications Medication Sig predniSONE (DELTASONE) 20 mg tablet Take 2 tablets by mouth once daily for 7 days. triamcinolone acetonide (KENALOG) 0.1 % cream Apply 1 application to affected area two times a day. ciprofloxacin-dexAMETHasone (CIPRODEX) 0.3-0.1 % otic suspension Use 4 Drops in the ears two times a day. 4 drops to affected ear twice daily for 7-10 days. iv contrast (will be provided with radiology test) MRI Brain Inject, intravenously, once for 1 dose.No IV access, insert saline lock prior to beginning of sedation, infusion, injection of imaging exam.Discontinue saline lock post exam. If Pt. has a central line or IVAD, may access for administration according to line specific nursing protocol.Once exam is complete flush line and de-access according to line specific nursing protocol in the MR contrast administration guidelines link clotrimazole-betamethasone (LOTRISONE) cream Apply to affected area two times a day as needed. fluticasone (FLONASE) 50 mcg/actuation nasal spray Use 2 Sprays in each nostril once daily. Rinse mouth after use. aspirin/acetaminophen/caffeine (EXCEDRIN MIGRAINE ORAL) Take by mouth. naproxen sodium (ALEVE ORAL) Take by mouth. DULoxetine (CYMBALTA) 30 mg capsule Take 1 capsule by mouth once daily. albuterol HFA (VENTOLIN HFA) 90 mcg/actuation inhaler Inhale 2 Puffs as instructed every 4 hours as needed for wheezing/shortness of breath. COMPOUNDED PRESCRIPTION Increase CPAP setting to 13 cm H2O pressure. Dx: KEYLA CPAP Initiate CPAP @ 11 cm of water with humidification. Mask (per patient preference) optional chin strap (if indicated) , filters, tubing, humidifier and lifetime supplies. CETIRIZINE HCL (ZYRTEC ORAL) Take 1 tablet by mouth two times a day. No current facility-administered medications for this visit. REVIEW OF SYSTEMS: General: No weight loss, malaise or fevers. Neuro: Postive for h/o seizures during 20's. Was on medication for 9 years and successfully weaned off, Negative for Stroke-residual deficit Stroke-No residual deficit Respiratory: Positive for KEYLA on CPAP; seasonal allergies, Negative for Asthma, COPD, Pneumonia within 6 weeks (date), Tobacco Use Cardiovascular: No history of HTN requiring medication, no history of angina, CHF, NE, cardiac surgery or stents. Denies rest pain, gangrene or revascularization/amputation for PVD. No history of cardiovascular symptoms or problems. GI: No history of GI symptoms or problems. No history of esophageal varices, recent ascites, or ETOH greater than 2 drinks per day. : No history of dysuria, frequency or incontinence,, stones or chronic kidney disease Endocrine: No history of diabetes. Has not taken steroids within the past 30 days. No history of endocrinological symptoms or problems. Hematology: No history of bleeding or clotting disorder. Pt is not taking anti-coagulation or platelet medications. No history of hematological symptoms or problems. Oncology: No history of CA metastasis, chemo within 30 days, or radiotherapy within 90 days. Has not lost 10% of body wt in 6 months. No history of oncological symptoms or problems. Psych: Anxiety, Depression Musculoskeletal: See HPI Skin: Negative for lesions, rash and itching. Objective PHYSICAL EXAM: Ht 5' 10.5 [pt reported[ (1.79m) Wt 221 lb (100.2kg) BMI 31.25 kg/(m^2). VIDEO EXAM: (if completed, performed via video enabled technology) GENERAL: alert and appropriate, in no distress, well-hydrated, well nourished, and happy, smiling, interactive EYES: no injection, PERRL, and EOMI OROPHARYNX: moist mucus membranes, no tonsillar hypertrophy/exudate, uvula midline and pharynx non-erythematous, lips, teeth and gums are without obvious lesion NECK: full ROM, no cervical LNs noted RESPIRATORY: breathing non-labored CHEST: equal chest rise with normal respiratory effort HEART: Regular carotid pulse based on tempo of count Diagnostic tests reviewed for today's visit: Lab Value Units Date High Low HB 15.0 g/dL 11/01/2023 17.0 13.0 HCT 44.3 % 11/01/2023 51.0 39.0 WBC 5.31 k/uL 11/01/2023 11.00 3.70 PLT 284 k/uL 11/01/2023 400 150 NA 138 mmol/L 11/01/2023 144 136 K 4.1 mmol/L 11/01/2023 5.1 3.7 GLUC 100 mg/dL 11/01/2023 99 74 BUN 15 mg/dL 11/01/2023 24 9 CREAT 0.84 mg/dL 11/01/2023 1.22 0.73 PTSEC No results within date range. INR No results within date range. APTT No results within date range. ALT No results within date range. AST No results within date range. TBILI No results within date range. TSH No results within date range. Hemoglobin A1C (%) Date Value 12/16/2022 5.2 EKG Procedure Date : Oct 31 2023 18:43:39 Edit Date : Nov 01 2023 08:09:33 Diagnosis: NORMAL STINUS RHYTHM LEFT AXIS DEVIATION CANNOT EXCLUDE ANERIOR MYOCARDIAL INFARCTION , AGE UNDETERMINED 01/07/20 Echo Impression CONCLUSIONS: - Technically difficult exam due to body habitus. - Exam indication: Chest Pain - The left ventricle is normal in size. There is mild septal left ventricular hypertrophy. Left ventricular systolic function is normal. EF = 62 5% (2D biplane) Normal left ventricular diastolic function. - The right ventricle is normal in size. Right ventricular systolic function is normal. - There are no significant valvular abnormalities. - The visualized aorta is borderline dilated with a maximal dimension of 3.8 cm. - The patient has not had a prior [facility] echocardiographic exam for comparison. 03/18/17 Stress-negative for ischemia, LVEF 66% Impression/Recommendations ASSESSMENT: KEYLA (obstructive sleep apnea) Assessment: compliant with CPAP Advised to bring machine DOS Anxiety and depression Assessment: mood stable per patient on Cymbalta HLD (hyperlipidemia) Assessment: not on medication Obesity, Class I, BMI 30-34.9 Assessment:BMI 31.26 Vitamin D deficiency Assessment: patient took PO Vit D per surgeon request starting in October 2023 Will have Vit D level checked today 01/20/2024 History of seizures Assessment: twice initially, then none on medication for 9 years, weaned off successfully Seasonal allergic rhinitis Assessment: managed with FLonase and Zyrtec METS: Walk a block or two on level ground (2.75 METs) Climb a flight of stairs or walk up a hill (5.50 METs) Patient denies any chest pain or undue shortness of breath with the above physical activity. ANESTHESIA FINDINGS: Intubation History: No history of difficult intubation Significant Anesthesia Considerations: None Airway Exam: General: Normal appearance Mallampati Score is CLASS II ULBT: Class II - Lower incisors can bite the upper lip below the peter line Neck: Distance from hyoid to mentum during neck extension is at least 3 finger breaths, thick neck. Full neck range of motion Mouth: Normal tongue size and Mouth opening greater than 2 finger breaths Dentition: Intact and Bridge (right upper) Airway History: No abnormal airway history STOP BANG Score: KEYLA uses CPAP/BiPAP PLAN: This patient is optimally prepared for surgery. CONSULTS: Patient does not require consults for optimization at this time. The Following Tests/Procedures Have Been Initiated: Labs not indicated per PACC protocol, EKG not indicated per PACC protocol Planned Anesthetic: Per anesthesia choice Instructions Given to Patient: Patient given verbal instructions and voices comprehension and compliance. Copy sent electronically via My Chart, email, or mobile device. I spent a total of 20 minutes on the date of the service which included preparing to see the patient, [id number] patient care, completing clinical documentation, obtaining and/or reviewing separately obtained history, performing a medically appropriate examination, and counseling and educating the patient/family/caregiver This is a virtual visit. It required patient-provider interaction for the medical decision making as documented above. SIGNATURE: Gaetano Ambrocio PA-C PATIENT NAME: Aston Napoles DATE: 01/20/2024 TIME: 8:06 AM PAGER/CONTACT #: T [facility] 01-20-2024 History and physical note PREANESTHESIA CONSULT CLINIC TELEHEALTH VISIT Patient has been identified by name and date of : Yes This is a virtual visit using [employer] Zoom Video Visit. It require patient-provider interaction for the medical decision making as documented below. Reason for contact: PACC visit Accompanied by: Self This is a virtual visit using Virtual Visit (Audio/Visual) I have discussed the nature of this visit with the patient which will occur via [employer] (Phone, Virtual Visit) and he agrees to proceed with this interaction . It required patient-provider interaction for the medical decision making as documented below. I have communicated my name and active licensure. The patient's identity and physical location were verified at the time of this visit. Either the patient or their legal sales representative womens health has been informed of the risks and benefits of and alternatives to treatment through a remote evaluation and consents to proceed with the evaluation remotely. Scheduled Surgery: Left - REPAIR ACHILLES TENDON SECONDARY Left - OSTECTOMY CALCANEUS Left - RELEASE TENDON EXTREMITY LOWER Left - TRANSFER TENDON EXTREMITY LOWER - (Possible) Subjective CHIEF COMPLAINT: Pre op exam HPI: Patient is a 48 year old male here for PACC. Patient has been seen and evaluated by orthopedic surgeon due to left foot pain. Reports left achilles pain beginning in 2019 with no known injury. Has been found to have achilles tendinitis left. Patient has been recommended for procedure listed above; electing to proceed. 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 02/04/2019 Seasonal allergic rhinitis 02/27/2018 Seizure disorder (HCC) 2001 twice initially, then none on medication for 9 years, weaned off successfully Somnolence, daytime 02/27/2018 PAST SURGICAL HISTORY Procedure Laterality Date APPENDECTOMY 1997 COLONOSCOPY SCREENING N/A 02/17/2023 future colonoscopies need MAC EXCISION PILONIDAL CYST/SINUS SIMPLE INGUINAL HERNIA REPAIR HX Bilateral 1993 1992 and 1993 each side PAST SURGICAL HISTORY OF 08/10/2023 DESTRUCTION OF ANAL CONDYLOMA SKIN BIOPSY HX TONSILLECTOMY HX 1979 FAMILY HISTORY Problem Relation Age of Onset Hypertension Mother Heart Attack Father 60 sudden Hypertension Father No Known Problems Sister No Known Problems Brother Colon Cancer Maternal Grandfather 72 Heart disease Paternal Grandmother Heart disease Paternal Grandfather Social History Tobacco Use Smoking status: Never Smokeless tobacco: Never Vaping Use Vaping status: Never Used Substance Use Topics Alcohol use: Yes Comment: once a month Drug use: No ALLERGIES Allergen Reactions Compazine [Prochlor* Other: See Comments Jittery feeling MEDICATIONS: Current Outpatient Medications Medication Sig predniSONE (DELTASONE) 20 mg tablet Take 2 tablets by mouth once daily for 7 days. triamcinolone acetonide (KENALOG) 0.1 % cream Apply 1 application to affected area two times a day. ciprofloxacin-dexAMETHasone (CIPRODEX) 0.3-0.1 % otic suspension Use 4 Drops in the ears two times a day. 4 drops to affected ear twice daily for 7-10 days. iv contrast (will be provided with radiology test) MRI Brain Inject, intravenously, once for 1 dose.No IV access, insert saline lock prior to beginning of sedation, infusion, injection of imaging exam.Discontinue saline lock post exam. If Pt. has a central line or IVAD, may access for administration according to line specific nursing protocol.Once exam is complete flush line and de-access according to line specific nursing protocol in the MR contrast administration guidelines link clotrimazole-betamethasone (LOTRISONE) cream Apply to affected area two times a day as needed. fluticasone (FLONASE) 50 mcg/actuation nasal spray Use 2 Sprays in each nostril once daily. Rinse mouth after use. aspirin/acetaminophen/caffeine (EXCEDRIN MIGRAINE ORAL) Take by mouth. naproxen sodium (ALEVE ORAL) Take by mouth. DULoxetine (CYMBALTA) 30 mg capsule Take 1 capsule by mouth once daily. albuterol HFA (VENTOLIN HFA) 90 mcg/actuation inhaler Inhale 2 Puffs as instructed every 4 hours as needed for wheezing/shortness of breath. COMPOUNDED PRESCRIPTION Increase CPAP setting to 13 cm H2O pressure. Dx: KEYLA CPAP Initiate CPAP @ 11 cm of water with humidification. Mask (per patient preference) optional chin strap (if indicated) , filters, tubing, humidifier and lifetime supplies. CETIRIZINE HCL (ZYRTEC ORAL) Take 1 tablet by mouth two times a day. No current facility-administered medications for this visit. REVIEW OF SYSTEMS: General: No weight loss, malaise or fevers. Neuro: Postive for h/o seizures during 's. Was on medication for 9 years and successfully weaned off, Negative for Stroke-residual deficit Stroke-No residual deficit Respiratory: Positive for KEYLA on CPAP; seasonal allergies, Negative for Asthma, COPD, Pneumonia within 6 weeks (date), Tobacco Use Cardiovascular: No history of HTN requiring medication, no history of angina, CHF, NE, cardiac surgery or stents. Denies rest pain, gangrene or revascularization/amputation for PVD. No history of cardiovascular symptoms or problems. GI: No history of GI symptoms or problems. No history of esophageal varices, recent ascites, or ETOH greater than 2 drinks per day. : No history of dysuria, frequency or incontinence,, stones or chronic kidney disease Endocrine: No history of diabetes. Has not taken steroids within the past 30 days. No history of endocrinological symptoms or problems. Hematology: No history of bleeding or clotting disorder. Pt is not taking anti-coagulation or platelet medications. No history of hematological symptoms or problems. Oncology: No history of CA metastasis, chemo within 30 days, or radiotherapy within 90 days. Has not lost 10% of body wt in 6 months. No history of oncological symptoms or problems. Psych: Anxiety, Depression Musculoskeletal: See HPI Skin: Negative for lesions, rash and itching. Objective PHYSICAL EXAM: Ht 5' 10.5 [pt reported[ (1.79m) Wt 221 lb (100.2kg) BMI 31.25 kg/(m^2). VIDEO EXAM: (if completed, performed via video enabled technology) GENERAL: alert and appropriate, in no distress, well-hydrated, well nourished, and happy, smiling, interactive EYES: no injection, PERRL, and EOMI OROPHARYNX: moist mucus membranes, no tonsillar hypertrophy/exudate, uvula midline and pharynx non-erythematous, lips, teeth and gums are without obvious lesion NECK: full ROM, no cervical LNs noted RESPIRATORY: breathing non-labored CHEST: equal chest rise with normal respiratory effort HEART: Regular carotid pulse based on tempo of count Diagnostic tests reviewed for today's visit: Lab Value Units Date High Low HB 15.0 g/dL 11/01/2023 17.0 13.0 HCT 44.3 % 11/01/2023 51.0 39.0 WBC 5.31 k/uL 11/01/2023 11.00 3.70 PLT 284 k/uL 11/01/2023 400 150 NA 138 mmol/L 11/01/2023 144 136 K 4.1 mmol/L 11/01/2023 5.1 3.7 GLUC 100 mg/dL 11/01/2023 99 74 BUN 15 mg/dL 11/01/2023 24 9 CREAT 0.84 mg/dL 11/01/2023 1.22 0.73 PTSEC No results within date range. INR No results within date range. APTT No results within date range. ALT No results within date range. AST No results within date range. TBILI No results within date range. TSH No results within date range. Hemoglobin A1C (%) Date Value 12/16/2022 5.2 EKG Procedure Date : Oct 31 2023 18:43:39 Edit Date : Nov 01 2023 08:09:33 Diagnosis: NORMAL STINUS RHYTHM LEFT AXIS DEVIATION CANNOT EXCLUDE ANERIOR MYOCARDIAL INFARCTION , AGE UNDETERMINED 01/07/20 Echo Impression CONCLUSIONS: - Technically difficult exam due to body habitus. - Exam indication: Chest Pain - The left ventricle is normal in size. There is mild septal left ventricular hypertrophy. Left ventricular systolic function is normal. EF = 62 5% (2D biplane) Normal left ventricular diastolic function. - The right ventricle is normal in size. Right ventricular systolic function is normal. - There are no significant valvular abnormalities. - The visualized aorta is borderline dilated with a maximal dimension of 3.8 cm. - The patient has not had a prior CC echocardiographic exam for comparison. 03/18/17 Stress-negative for ischemia, LVEF 66% Impression/Recommendations ASSESSMENT: KEYLA (obstructive sleep apnea) Assessment: compliant with CPAP Advised to bring machine DOS Anxiety and depression Assessment: mood stable per patient on Cymbalta HLD (hyperlipidemia) Assessment: not on medication Obesity, Class I, BMI 30-34.9 Assessment:BMI 31.26 Vitamin D deficiency Assessment: patient took PO Vit D per surgeon request starting in October 2023 Will have Vit D level checked today 01/20/2024 History of seizures Assessment: twice initially, then none on medication for 9 years, weaned off successfully Seasonal allergic rhinitis Assessment: managed with FLonase and Zyrtec METS: Walk a block or two on level ground (2.75 METs) Climb a flight of stairs or walk up a hill (5.50 METs) Patient denies any chest pain or undue shortness of breath with the above physical activity. ANESTHESIA FINDINGS: Intubation History: No history of difficult intubation Significant Anesthesia Considerations: None Airway Exam: General: Normal appearance Mallampati Score is CLASS II ULBT: Class II - Lower incisors can bite the upper lip below the peter line Neck: Distance from hyoid to mentum during neck extension is at least 3 finger breaths, thick neck. Full neck range of motion Mouth: Normal tongue size and Mouth opening greater than 2 finger breaths Dentition: Intact and Bridge (right upper) Airway History: No abnormal airway history STOP BANG Score: KEYLA uses CPAP/BiPAP PLAN: This patient is optimally prepared for surgery. CONSULTS: Patient does not require consults for optimization at this time. The Following Tests/Procedures Have Been Initiated: Labs not indicated per [facility] protocol, EKG not indicated per [facility] protocol Planned Anesthetic: Per anesthesia choice Instructions Given to Patient: Patient given verbal instructions and voices comprehension and compliance. Copy sent electronically via My Chart, email, or mobile device. I spent a total of 20 minutes on the date of the service which included preparing to see the patient, [id number] patient care, completing clinical documentation, obtaining and/or reviewing separately obtained history, performing a medically appropriate examination, and counseling and educating the patient/family/caregiver This is a virtual visit. It required patient-provider interaction for the medical decision making as documented above. SIGNATURE: Gaetano Ambrocio PA-C PATIENT NAME: Aston Napoles DATE: 01/20/2024 TIME: 8:06 AM PAGER/CONTACT #: documented in this encounter [facility] 01-19-2024 Note HNO ID: [id number] Author: GERMAN WOODWARD AUD Service: ? Author Type: Co Founder And Chairman Type: Progress Notes Filed: 01/19/2024 15:08 Note Text: [facility] January 19, 2024 Aston Napoles was seen today for audiometric testing as part of his appointment today with Latisha Birmingham PA-C. The patient reports feeling pressure in his left ear and reports a family history of hearing loss which he is concerned he may also have hearing loss. PHYSICAL EXAMINATION: Otoscopic inspection was completed by Latisha Birmingham today TEST RESULTS: Audiometric testing revealed an asymmetrical hearing loss: pure tone thresholds within normal limits in the right ear and a mild sensorineural hearing loss in the left ear at 4000Hz and above. Speech electrocardiograph technician thresholds agree with pure tone thresholds bilaterally. Speech discrimination testing revealed excellent speech understanding ability bilaterally. Tympanometry revealed hypermobile tympanic membranes with normal middle ear pressure bilaterally. AUDIOGRAM MAY BE VIEWED IN PROCEDURES RECOMMENDATIONS/PLAN: Latisha Birmingham will review audiometric test results with the patient. GISEL Fuller [facility] 01-19-2024 History of Present illness Narrative [facility] January 19, 2024 Aston Napoles was seen today for audiometric testing as part of his appointment today with Latisha Birmingham PA-C. The patient reports feeling pressure in his left ear and reports a family history of hearing loss which he is concerned he may also have hearing loss. PHYSICAL EXAMINATION: Otoscopic inspection was completed by Latisha Birmingham today TEST RESULTS: Audiometric testing revealed an asymmetrical hearing loss: pure tone thresholds within normal limits in the right ear and a mild sensorineural hearing loss in the left ear at 4000Hz and above. Speech electrocardiograph technician thresholds agree with pure tone thresholds bilaterally. Speech discrimination testing revealed excellent speech understanding ability bilaterally. Tympanometry revealed hypermobile tympanic membranes with normal middle ear pressure bilaterally. AUDIOGRAM MAY BE VIEWED IN PROCEDURES RECOMMENDATIONS/PLAN: Latisha Birmingham will review audiometric test results with the patient. GISEL Fuller documented in this encounter [facility] 01-19-2024 Instructions Latisha Birmingham PA-C - 01/19/2024 1:58 PM EDT Otitis Externa - External Ear Infection Otitis externa is inflammation or infection of the ear canal. Any water, sand, or other debris that gets into the ear canal and stays there can cause otitis externa. Otitis externa can also be caused by chronic skin conditions such as ear eczema. Home instructions: -Use prescribed drops as directed. Ensure drops are not cold as this may cause dizziness; you may warm them by submerging in a cup of water if needed. Place drops while lying down with ear facing up. Gently wiggle the outer ear and push the ear flap over the ear canal to help push the liquid in. Stay laying down for 3 to 5 minutes before sitting upright. If you have ear tubes you should also pump the tragus (flap of skin over ear canal opening) to help force liquid into tube. -If you had an ear wick placed today, administer double the drops for the next administration. Do not attempt to push the ear flap over the ear canal while the wick is inserted. If ear wick does not dislodge naturally on its own after swelling has subsided, call to be seen and we can remove it for you. -Avoid getting water in the ear until the problem clears up. Use cotton lightly coated with petroleum jelly as an earplug. Do not use plastic earplugs. -Use a hairspring i inspector set on low to carefully dry the ear after you shower. -To ease ear pain, you may use OTC ibuprofen or naproxen for pain, unless you've been told not to by your PCP. You may also add acetaminophen. Hold a warm cloth against your ear for relief. Call your doctor or seek medical care if: -You have a new or higher fever. -You have new or worse pain, swelling, warmth, or redness around or behind your ear. -You have new or increasing pus or blood draining from your ear Prevent infections by: -Ensuring ear is dried after bathing or swimming, use OTC swimmer's ear drops after swimming, use hairspring i inspector on low setting to fully dry the canal. -Try not to scratch ears aggressively or use Q-tips aggressively, this can traumatize fragile ear canal skin and allow infection -Treat any chronically itchy or dry skin of the ears, use topical OTC hydrocortisone cream, twice daily for 1-2 weeks, then daily 2-3 a week for maintenance. -If ears are very dry, you may additionally use an petrolatum-based moisturizing agent daily such as Aquaphor Ear Eczema -Keep ears dry and clean -Use steroid topical cream as directed; initially twice daily for 1-2 weeks, then reduce to once daily 2-3 times weekly for maintenance -If ears are very dry, you may additionally use an petrolatum-based moisturizing agent daily such as Aquaphor -Try not to scratch ears aggressively or use Q-tips aggressively, this can traumatize fragile ear canal skin and allow infection -If symptoms persist or worsen to include pain or discharge from the ear, please contact the office to be seen. Eustachian Tube Dysfunction Eustachian tube problems often clear up on their own or after treating the cause of the blockage. These symptoms may be intermittent in nature and may fluctuate with allergies, altitudes such as flying or swimming/diving, colds, and other upper respiratory conditions. Home care instructions: -If prescribed, take steroid as directed. Take in the morning and with food to avoid upset stomach. Review other possible steroid side effects below. If diabetic, monitor blood sugars as discussed. -Use nasal steroid spray fluticasone, aiming towards the ears. Two sprays in each nostril daily. -Take oral antihistamines if you suffer from allergy symptoms. -Use exercises to help open blocked tubes, do this frequently during the day. Close your mouth, hold your nose, and gently blow as if you are inflating a balloon. Jaw thrusts, yawning and chewing gum also may help. You may hear or feel a pop when the tubes open. -If symptoms are severe; you may take pseudoephedrine (if you do not have high blood pressure), you must ask the pharmacist for this medication. Do not use OTC phenylephrine. You may also use for oxymetazoline nasal decongestant (Afrin), especially if flying, but this should not be used more than 3 days. -If flying; pretreat with pseudoephedrine and afrin nasal spray for the day prior and continue use during the day of. Use afrin spray again 30 mins before landing. Try ear plane ear plugs to help reduce rapid pressure changes. Possible side effects of oral steroids include: Mild headache, stomach upset, insomnia, anxiety/mood changes, fluid retention, limb swelling. These should be mild and resolve a few days after discontinuation. You must take the complete course, even if your symptoms are improving, because they may return and be worsened if you stop abruptly. Do not take other anti-inflammatory medication such as ibuprofen or naproxen while taking steroids. If you are diabetic you must monitor your blood sugars, discontinue steroid if these are elevating significantly. documented in this encounter [facility] 01-19-2024 Note HNO ID: [id number] Author: LATISHA BIRMINGHAM PA-C Service: ? Author Type: Physician Professional Skateboarder Type: Progress Notes Filed: 01/19/2024 17:06 Note Text: HPI: Aston Napoles is a 48 year old male. CC: Patient presents with: Ear Problem: Reoccurring left ear infections and pressure Patient presents today complaining of left ear feeling constantly clogged with pressure, and having recurring ear infections. Feels he has left sided hearing loss. Right side has a stabbing pain currently. Swims a lot finds he gets infections after. Denies hearing loss. Denies any ringing, buzzing, humming. Denies dizziness. Denies any prior known ear disorders or surgeries. Mom and grandpa have left side hearing loss. Takes flonase, zyrtec regularly. Uses netipot as needed. I reviewed the allergies, medications, problem list, PMH/PSH, FmHx and SocHx as documented per EMR. Physical Exam BP 141/93 Pulse 96 Resp 16 Ht 179.1 cm (5' 10.5 ) Wt 100.2 kg (221 lb) BMI 31.26 kg/m? General: Appears to be in no acute distress, normal affect Head/Face: Facial muscles appear to be functioning normally. TMJs move freely, without popping or clicking, are nontender. Neck: There are no palpable salivary gland masses, no thryoid mass or thyromegaly, no neck masses or lymphadenopathy. Eyes: Extraocular movements appear intact. Ears: Right Ear: External ear is without lesions. Conchal bowl is hypertrophic, erythematous with dry flaky skin. EAC is erythematous, free of purulence or debris. Visualized TM is eczematous/vascular and with normal landmarks, not retracted or bulging. TM is mobile on pneumatic otoscopy. Left Ear: External ear is without lesions. Conchal bowl is hypertrophic, erythematous with dry flaky skin. EAC is without inflammatory changes, free of debris. Visualized TM is not inflamed and with normal landmarks, not retracted or bulging. TM is mobile on pneumatic otoscopy. Nose: External nose is without lesions or deformity. Nasal mucosa appears healthy and without obvious lesions or masses on nasal speculum exam. The septum is nonobstructive. The inferior turbinates are not hypertrophic. Oral Cavity/Oropharynx: The lips are without lesions. The tongue and floor of the mouth are without lesions. The soft palate and posterior pharynx are without lesions. Gingival mucosa is without lesions. Tonsils are not enlarged and without lesions. Data 12/26/18 audio and tympanometry within normal limits Assessment AND Plan I counseled the patient about the differential diagnosis, natural course, treatment options and answered their questions for: Diagnoses and all orders for this visit: Sensorineural hearing loss (SNHL) of left ear with unrestricted hearing of right ear Dysfunction of both eustachian tubes - MRI BRAIN WO/W IVCON; Future - predniSONE (DELTASONE) 20 mg tablet; Take 2 tablets by mouth once daily for 7 days. Physical exam and tympanometry w/o signs of acute infection, OME/fluid or TM retraction. Audiogram revealed mild to moderate left-sided SNHL at 4 and 8K, with normal hearing on the right. 2019 audio was wnml. Patient advised MRI to rule-out mass/lesion. Patient otherwise advised discomfort likely due to intermittent ETD. Is advised to use nasal steroid spray daily, oral anti-histamine if needed, periodic auto-insufflation. May use pseudoephedrine and/or oxymetazoline spray if severe, for three days max. Advised to treat as directed and monitor. Acute otitis externa of right ear, unspecified type Chronic eczematous otitis externa of both ears - triamcinolone acetonide (KENALOG) 0.1 % cream; Apply 1 application to affected area two times a day. - ciprofloxacin-dexAMETHasone (CIPRODEX) 0.3-0.1 % otic suspension; Use 4 Drops in the ears two times a day. 4 drops to affected ear twice daily for 7-10 days. Exam revealed chronic eczematous changes of lateral external ears, canal inflammation present at right. Advised to treat right ear with steroid/abx drops for 2 weeks, w/ steroid topical bilaterally BID. Then to use steroid topical 2-3 times a week for maintenance as is often a recurring/chronic condition. Is advised to avoid scratching to avoid infection. Advised to call if symptoms worsening or not responding to treatment as prescribed. Followup Return in about 1 month (around 02/19/2024). Latisha Birmingham PA-C Time: 35 minutes: Time includes preparation, obtaining/reviewing history, exam, interpreting results, ordering, counseling/education, referring/communicating and documentation. -Created using voice recognition software, some errors may have occurred. Corrections may be performed at a later date [facility] 01-19-2024 History of Present illness Narrative Images from the original note were not included. HPI: Aston Napoles is a 48 year old male. CC: Patient presents with: Ear Problem: Reoccurring left ear infections and pressure Patient presents today complaining of left ear feeling constantly clogged with pressure, and having recurring ear infections. Feels he has left sided hearing loss. Right side has a stabbing pain currently. Swims a lot finds he gets infections after. Denies hearing loss. Denies any ringing, buzzing, humming. Denies dizziness. Denies any prior known ear disorders or surgeries. Mom and grandpa have left side hearing loss. Takes flonase, zyrtec regularly. Uses netipot as needed. I reviewed the allergies, medications, problem list, PMH/PSH, FmHx and SocHx as documented per EMR. Physical Exam BP 141/93 Pulse 96 Resp 16 Ht 179.1 cm (5' 10.5 ) Wt 100.2 kg (221 lb) BMI 31.26 kg/m General: Appears to be in no acute distress, normal affect Head/Face: Facial muscles appear to be functioning normally. TMJs move freely, without popping or clicking, are nontender. Neck: There are no palpable salivary gland masses, no thryoid mass or thyromegaly, no neck masses or lymphadenopathy. Eyes: Extraocular movements appear intact. Ears: Right Ear: External ear is without lesions. Conchal bowl is hypertrophic, erythematous with dry flaky skin. EAC is erythematous, free of purulence or debris. Visualized TM is eczematous/vascular and with normal landmarks, not retracted or bulging. TM is mobile on pneumatic otoscopy. Left Ear: External ear is without lesions. Conchal bowl is hypertrophic, erythematous with dry flaky skin. EAC is without inflammatory changes, free of debris. Visualized TM is not inflamed and with normal landmarks, not retracted or bulging. TM is mobile on pneumatic otoscopy. Nose: External nose is without lesions or deformity. Nasal mucosa appears healthy and without obvious lesions or masses on nasal speculum exam. The septum is nonobstructive. The inferior turbinates are not hypertrophic. Oral Cavity/Oropharynx: The lips are without lesions. The tongue and floor of the mouth are without lesions. The soft palate and posterior pharynx are without lesions. Gingival mucosa is without lesions. Tonsils are not enlarged and without lesions. Data 12/26/18 audio and tympanometry within normal limits Assessment & Plan I counseled the patient about the differential diagnosis, natural course, treatment options and answered their questions for: Diagnoses and all orders for this visit: Sensorineural hearing loss (SNHL) of left ear with unrestricted hearing of right ear Dysfunction of both eustachian tubes - MRI BRAIN WO/W IVCON; Future - predniSONE (DELTASONE) 20 mg tablet; Take 2 tablets by mouth once daily for 7 days. Physical exam and tympanometry w/o signs of acute infection, OME/fluid or TM retraction. Audiogram revealed mild to moderate left-sided SNHL at 4 and 8K, with normal hearing on the right. 2019 audio was wnml. Patient advised MRI to rule-out mass/lesion. Patient otherwise advised discomfort likely due to intermittent ETD. Is advised to use nasal steroid spray daily, oral anti-histamine if needed, periodic auto-insufflation. May use pseudoephedrine and/or oxymetazoline spray if severe, for three days max. Advised to treat as directed and monitor. Acute otitis externa of right ear, unspecified type Chronic eczematous otitis externa of both ears - triamcinolone acetonide (KENALOG) 0.1 % cream; Apply 1 application to affected area two times a day. - ciprofloxacin-dexAMETHasone (CIPRODEX) 0.3-0.1 % otic suspension; Use 4 Drops in the ears two times a day. 4 drops to affected ear twice daily for 7-10 days. Exam revealed chronic eczematous changes of lateral external ears, canal inflammation present at right. Advised to treat right ear with steroid/abx drops for 2 weeks, w/ steroid topical bilaterally BID. Then to use steroid topical 2-3 times a week for maintenance as is often a recurring/chronic condition. Is advised to avoid scratching to avoid infection. Advised to call if symptoms worsening or not responding to treatment as prescribed. Followup Return in about 1 month (around 02/19/2024). Latisha Birmingham PA-C Time: 35 minutes: Time includes preparation, obtaining/reviewing history, exam, interpreting results, ordering, counseling/education, referring/communicating and documentation. -Created using voice recognition software, some errors may have occurred. Corrections may be performed at a later date documented in this encounter [facility] 01-17-2024 Note HNO ID: [id number] Author: JONATHAN NIELSEN MD Service: ? Author Type: Physician Type: Progress Notes Filed: 01/17/2024 14:11 Note Text: Patient scheduled this appointment but he does not need a colonoscopy at this time he will be coming back in February. No charge for today's visit [facility] 01-17-2024 History of Present illness Narrative Patient scheduled this appointment but he does not need a colonoscopy at this time he will be coming back in February. No charge for today's visit documented in this encounter [facility] 01-12-[address] in Jan 2023 showed thickening of bladder wall. Unable to reach pt and not seeing any other work up. Janes Guerrero MA [facility] [facility] 01-12-[address] in Jan 2023 showed thickening of bladder wall. Unable to reach pt and not seeing any other work up. Janes Guerrero MA Called patient. Patient answered phone but call dropped. Patient has appointment 01/23/2024- has patient been seen elsewhere for urological issues? In notes patient to be seen for thickening of bladder wall, leakage- where was diagnosis made? Essie Anglin LPN documented in this encounter [facility] 01-11-2024 Telephone encounter Note Called patient. Patient answered phone but call dropped. Patient has appointment 01/23/2024- has patient been seen elsewhere for urological issues? In notes patient to be seen for thickening of bladder wall, leakage- where was diagnosis made? Essie Anglin LPN [facility] 12-26-2023 Telephone encounter Note called back pt but mailbox is full. I will send him mychart He just needs to PACC appt prior to surgery [facility] Work Phone: 12-26-2023 Miscellaneous Notes called back pt but mailbox is full. I will send him mychart He just needs to PACC appt prior to surgery Patient called and cancelled physical therapy session at [facility] scheduled for 01/18/24 due to conflict with traveling. Patient states he has already completed crutches training during last session on 12/19/23. Patient is wanting clarification on future appointments to be scheduled (prior or post surgery). Active referral# [id number] is showing 20 sessions with 4 completed. Please contact patient to advise. documented in this encounter [facility] 12-26-2023 Telephone encounter Note Patient called and cancelled physical therapy session at [facility] scheduled for 01/18/24 due to conflict with traveling. Patient states he has already completed crutches training during last session on 12/19/23. Patient is wanting clarification on future appointments to be scheduled (prior or post surgery). Active referral# [id number] is showing 20 sessions with 4 completed. Please contact patient to advise. [facility] 12-19-2023 Instructions Lorenzo Malone APRN.SENIOR CONTRACT SPECIALIST - 12/19/2023 9:39 AM EDT How to Manage Common Symptoms Associated with COVID for Adults Fever- Fever is a temperature over 100.4 F and can occur when the body is fighting an infection. To help treat a fever: Drink plenty of fluids and stay well hydrated. Eat small amounts of easy to digest food. Rest. Your body needs rest to recover, but getting up and moving around the house frequently is a good idea. You should try to continue doing your normal daily activities (bathing, toileting, grooming, cooking), though you will probably feel tired, and need to rest often. Avoid any heavy activity or exercise, as this will increase your body temperature. Dress in light clothing and stay covered in a light sheet. Keep the room temperature cool. Take a slightly warm (not cold or cool) bath, or apply damp washcloths to the forehead and wrists. Cough- Cough is a common symptom associated with COVID and can be bothersome. To help treat a cough: Stay well hydrated. Try warm water or tea with lemon and/or honey to help soothe the cough. Use a humidifier to add moisture to the air. Try a product with menthol, like a cough drop or a rub for your chest such as Vicks, which can help reduce cough. Try cough drops. Avoid smoking and other strong odors or perfumes. Try breathing exercises to keep your lungs open and clear. Take a big deep breath through your nose and hold for 5 seconds before slowly releasing. Repeat frequently, while you are awake. Congestion- Runny nose or nasal congestion can occur with COVID. Treatment can help relieve symptoms: Try OTC nasal saline spray, or nasal saline rinse to relieve mucus congestion. Nasal strips can help keep nasal passages open, to increase airflow. Elevating your head with an extra pillow in bed can help reduce congestion. Using a humidifier can increase moisture in the air, and make breathing easier. Sore Throat- Another common symptom with COVID, can be managed at home by: Stay well hydrated. Gargle with salt water - mix teaspoon salt with 1 cup of warm water and gargle. This helps to loosen mucus in the back of the throat and may reduce discomfort. Try ice chips, popsicles or lozenges to soothe the throat. Nausea/Vomiting/Diarrhea- These are common symptoms, and staying hydrated is most important. If you are nauseous or vomiting, start with small sips of water every 10-15 minutes and increase as tolerated. You can try sucking an ice cube too. If tolerating, you can try pedialyte or Gatorade, or flat sprite or ari-florence. Start slowly and increase as you are able to. Instead of meals, try smaller, more frequent snacks. Try eating bland foods like crackers, toast, rice, and applesauce. Avoid spicy, greasy or fried foods and dairy containing foods. Even if you aren't feeling hungry due to lack of smell or taste, it is important to try to take in some food when you are able. After drinking and eating, rest in an upright position for up to two hours as needed to help decrease nauseous feelings. Try closing your eyes, avoid moving and watching TV. Avoid strong odors that can make you feel more nauseated. When to seek emergency medical attention Look for emergency warning signs for COVID-19. If having any of these symptoms, seek emergency medical care immediately: Trouble breathing Persistent pain or pressure in the chest New confusion Inability to wake or stay awake Bluish lips or face *This list is not all possible symptoms. Please call your medical provider for any other symptoms that are severe or concerning to you. documented in this encounter [facility] 12-19-2023 Note HNO ID: [id number] Author: LORENZO MALONE APRN.SENIOR CONTRACT SPECIALIST Service: ? Author Type: Nurse Practitioner Type: Progress Notes Filed: 12/19/2023 09:47 Note Text: Subjective HPI Nontoxic-appearing male presents urgent care chief complaint left ear pain muffled hearing. Duration of symptoms 3 days. Associated symptoms left ear pain muffled hearing body aches chills fever rhinorrhea sore throat. This bothersome symptom today is ear pain. History of ear infections. No OTC medication use today. No known sick contacts. Denies any productive cough chest pain shortness of breath pleuritic pain hemoptysis nausea vomiting abdominal pain change in bowel or bladder habits. Past medical history prescription medication use and allergies reviewed. 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 02/27/2018: Seasonal allergic rhinitis 2000: Seizure disorder (HCC) Comment: twice initially, then none on medication for 9 years, weaned off successfully 02/27/2018: Somnolence, daytime PAST SURGICAL HISTORY 1998: APPENDECTOMY 02/17/2023: COLONOSCOPY SCREENING; N/A Comment: future colonoscopies need MAC No date: EXCISION PILONIDAL CYST/SINUS SIMPLE 1993: INGUINAL HERNIA REPAIR HX; Bilateral Comment: 1992 and 1993 each side 08/10/2023: PAST SURGICAL HISTORY OF Comment: DESTRUCTION OF ANAL CONDYLOMA No date: SKIN BIOPSY HX 1979: TONSILLECTOMY HX ALLERGIES Compazine [Prochlorperazine Edisylate] MEDICATIONS clotrimazole-betamethasone (LOTRISONE) cream Apply to affected area two times a day as needed. fluticasone (FLONASE) 50 mcg/actuation nasal spray Use 2 Sprays in each nostril once daily. Rinse mouth after use. aspirin/acetaminophen/caffeine (EXCEDRIN MIGRAINE ORAL) Take by mouth. naproxen sodium (ALEVE ORAL) Take by mouth. DULoxetine (CYMBALTA) 30 mg capsule Take 1 capsule by mouth once daily. albuterol HFA (VENTOLIN HFA) 90 mcg/actuation inhaler Inhale 2 Puffs as instructed every 4 hours as needed for wheezing/shortness of breath. COMPOUNDED PRESCRIPTION Increase CPAP setting to 13 cm H2O pressure. Dx: KEYLA CPAP Initiate CPAP @ 11 cm of water with humidification. Mask (per patient preference) optional chin strap (if indicated) , filters, tubing, humidifier and lifetime supplies. CETIRIZINE HCL (ZYRTEC ORAL) Take 1 tablet by mouth two times a day. FAMILY HISTORY Problem Relation Age of Onset Hypertension Mother Heart Attack Father 60 sudden Hypertension Father No Known Problems Sister No Known Problems Brother Colon Cancer Maternal Grandfather 72 Heart disease Paternal Grandmother Heart disease Paternal Grandfather Social History Tobacco Use Smoking status: Never Smokeless tobacco: Never Vaping Use Vaping status: Never Used Substance Use Topics Alcohol use: Yes Comment: once a month Drug use: No BP 124/78 Pulse 76 Temp 36.9 ?C (98.4 ?F) Resp 16 Wt 100.2 kg (220 lb 14.4 oz) SpO2 98% BMI 33.00 kg/m? Review of Systems Constitutional: Positive for chills, fever and malaise/fatigue. HENT: Positive for congestion, ear pain and sore throat. Negative for ear discharge and sinus pain. Eyes: Negative for blurred vision, pain, discharge and redness. Respiratory: Negative for cough, hemoptysis, sputum production, shortness of breath, wheezing and stridor. Cardiovascular: Negative for chest pain. Gastrointestinal: Negative for abdominal pain, diarrhea, nausea and vomiting. Musculoskeletal: Positive for myalgias. Skin: Negative for itching and rash. Neurological: Negative for dizziness and headaches. Objective Physical Exam Constitutional: General: He is not in acute distress. Appearance: He is not diaphoretic. HENT: Head: Normocephalic. Jaw: No trismus, tenderness, swelling or pain on movement. Right Ear: Tympanic membrane, ear canal and external ear normal. Left Ear: Ear canal and external ear normal. Decreased hearing noted. Tympanic membrane is erythematous. Mouth/Throat: Mouth: Mucous membranes are moist. Pharynx: Oropharynx is clear. Uvula midline. No pharyngeal swelling, oropharyngeal exudate, posterior oropharyngeal erythema or uvula swelling. Eyes: Conjunctiva/sclera: Conjunctivae normal. Pupils: Pupils are equal, round, and reactive to light. Cardiovascular: Rate and Rhythm: Normal rate and regular rhythm. Heart sounds: Normal heart sounds. Pulmonary: Effort: Pulmonary effort is normal. No tachypnea, accessory muscle usage or respiratory distress. Breath sounds: Normal breath sounds. No stridor. No wheezing, rhonchi or rales. Abdominal: General: There is no distension. Palpations: Abdomen is soft. Tenderness: T (more content not included)... [facility] 12-19-2023 History of Present illness Narrative Subjective HPI Nontoxic-appearing male presents urgent care chief complaint left ear pain muffled hearing. Duration of symptoms 3 days. Associated symptoms left ear pain muffled hearing body aches chills fever rhinorrhea sore throat. This bothersome symptom today is ear pain. History of ear infections. No OTC medication use today. No known sick contacts. Denies any productive cough chest pain shortness of breath pleuritic pain hemoptysis nausea vomiting abdominal pain change in bowel or bladder habits. Past medical history prescription medication use and allergies reviewed. 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 02/27/2018: Seasonal allergic rhinitis 2001: Seizure disorder (HCC) Comment: twice initially, then none on medication for 9 years, weaned off successfully 02/27/2018: Somnolence, daytime PAST SURGICAL HISTORY 1997: APPENDECTOMY 02/17/2023: COLONOSCOPY SCREENING; N/A Comment: future colonoscopies need MAC No date: EXCISION PILONIDAL CYST/SINUS SIMPLE 1993: INGUINAL HERNIA REPAIR HX; Bilateral Comment: 1992 and 1993 each side 08/10/2023: PAST SURGICAL HISTORY OF Comment: DESTRUCTION OF ANAL CONDYLOMA No date: SKIN BIOPSY HX 1979: TONSILLECTOMY HX ALLERGIES Compazine [Prochlorperazine Edisylate] MEDICATIONS clotrimazole-betamethasone (LOTRISONE) cream Apply to affected area two times a day as needed. fluticasone (FLONASE) 50 mcg/actuation nasal spray Use 2 Sprays in each nostril once daily. Rinse mouth after use. aspirin/acetaminophen/caffeine (EXCEDRIN MIGRAINE ORAL) Take by mouth. naproxen sodium (ALEVE ORAL) Take by mouth. DULoxetine (CYMBALTA) 30 mg capsule Take 1 capsule by mouth once daily. albuterol HFA (VENTOLIN HFA) 90 mcg/actuation inhaler Inhale 2 Puffs as instructed every 4 hours as needed for wheezing/shortness of breath. COMPOUNDED PRESCRIPTION Increase CPAP setting to 13 cm H2O pressure. Dx: KEYLA CPAP Initiate CPAP @ 11 cm of water with humidification. Mask (per patient preference) optional chin strap (if indicated) , filters, tubing, humidifier and lifetime supplies. CETIRIZINE HCL (ZYRTEC ORAL) Take 1 tablet by mouth two times a day. FAMILY HISTORY Problem Relation Age of Onset Hypertension Mother Heart Attack Father 60 sudden Hypertension Father No Known Problems Sister No Known Problems Brother Colon Cancer Maternal Grandfather 72 Heart disease Paternal Grandmother Heart disease Paternal Grandfather Social History Tobacco Use Smoking status: Never Smokeless tobacco: Never Vaping Use Vaping status: Never Used Substance Use Topics Alcohol use: Yes Comment: once a month Drug use: No BP 124/78 Pulse 76 Temp 36.9 C (98.4 F) Resp 16 Wt 100.2 kg (220 lb 14.4 oz) SpO2 98% BMI 33.00 kg/m Review of Systems Constitutional: Positive for chills, fever and malaise/fatigue. HENT: Positive for congestion, ear pain and sore throat. Negative for ear discharge and sinus pain. Eyes: Negative for blurred vision, pain, discharge and redness. Respiratory: Negative for cough, hemoptysis, sputum production, shortness of breath, wheezing and stridor. Cardiovascular: Negative for chest pain. Gastrointestinal: Negative for abdominal pain, diarrhea, nausea and vomiting. Musculoskeletal: Positive for myalgias. Skin: Negative for itching and rash. Neurological: Negative for dizziness and headaches. Objective Physical Exam Constitutional: General: He is not in acute distress. Appearance: He is not diaphoretic. HENT: Head: Normocephalic. Jaw: No trismus, tenderness, swelling or pain on movement. Right Ear: Tympanic membrane, ear canal and external ear normal. Left Ear: Ear canal and external ear normal. Decreased hearing noted. Tympanic membrane is erythematous. Mouth/Throat: Mouth: Mucous membranes are moist. Pharynx: Oropharynx is clear. Uvula midline. No pharyngeal swelling, oropharyngeal exudate, posterior oropharyngeal erythema or uvula swelling. Eyes: Conjunctiva/sclera: Conjunctivae normal. Pupils: Pupils are equal, round, and reactive to light. Cardiovascular: Rate and Rhythm: Normal rate and regular rhythm. Heart sounds: Normal heart sounds. Pulmonary: Effort: Pulmonary effort is normal. No tachypnea, accessory muscle usage or respiratory distress. Breath sounds: Normal breath sounds. No stridor. No wheezing, rhonchi or rales. Abdominal: General: There is no distension. Palpations: Abdomen is soft. Tenderness: There is no abdominal tenderness. There is no guarding or rebound. Musculoskeletal: Cervical back: Normal range of motion and neck supple. No edema, erythema, rigidity or tenderness. No pain with movement. Normal range of motion. Lymphadenopathy: Cervical: No cervical adenopathy. Skin: General: Skin is warm and dry. Neurological: Mental Status: He is alert and oriented to person, place, and time. ASSESSMENT/PLAN: 1. Suspected COVID-19 virus infection - ICD9: V01.79, ICD10: Z20.822 (primary diagnosis) - COVID & INFLUENZA A/B & RSV PCR, ROUTINE 2. Acute otitis media, left - ICD9: 382.9, ICD10: H66.92 Viral swab obtained. Will test for COVID-19. If positive patient is a candidate for antiviral therapies. Creatinine clearance of 0.84 GFR of 108 in October 2023. Patient was educated on supportive therapies. Patient will follow up with primary care provider as needed. Patient was instructed to immediately proceed to emergency room for any new, worsening, or symptoms lasting longer than anticipated. The patient's clinical presentation is otherwise unremarkable at this time. Based on exam and clinical finding, the patient is stable for discharge. Plan of care was discussed with patient. Patient verbalizes understanding and agrees to plan of care. This note was generated using [employer] software. It may contain errors in wording, punctuation, or spelling. Lorenzo Malone APRN.CARINA documented in this encounter [facility] 12-19-2023 Note HNO ID: [id number] Author: ENOC BYNUM PT Service: ? Author Type: Physical Therapist Type: Progress Notes Filed: 12/19/2023 09:28 Note Text: Episode Visit Count: 4 Therapist That Will Accept/Oversee The Plan Of Care: Enoc Bynum Start of Care Date: 11/14/23 Onset Date: 04/11/23 REHABILITATION AND SPORTS THERAPY PHYSICAL THERAPY RE-EVALUATION PLAN OF CARE UPDATE: Assessment: Aston Napoles demonstrates difficulty with walking in the community, heavy exertion, physical activities, and working. He has new goals added to address with use of AD's. Patient continues to present with impairments in ADL's, independence in exercise, overall function, range of motion, strength, and symptom management that interfere with walking in the community, stair negotiation, bending, heavy exertion, physical activities, recreational activities, working . Current prognosis is Good due to: current objective clinical presentation, good overall health status, positive past response to therapy, good support system/ coping skills . He will benefit from continued skilled therapy services to meet the updated goals for this plan of care as noted below. Goals updated on 12/19/2023. Goals for Episode of Care: created on 11/14/23 through 01/16/24 [place] in home exercise program. Met Patient will decrease pain to 0/10 with functional activities to allow patient to improve standing tolerance for ADLs. Not met Patient will increase active ROM of L dorsiflexion to 10 degrees to allow pt to to improve performance of ADLs and to improve gait mechanics / gait pattern . Not met Patient will demonstrate increase in L plantarflexion strength to 5/5 during manual muscle testing in order to improve function for basic self-care tasks, home management tasks, leisure / recreation skills, light functional tasks, and work tasks. Not met Perform walking and stairs without pain. Not met Goals added 12/19/2023 Patient will demonstrate proper crutch use during transfers, even ground, and stairs with supervision guarding. Met Patient will verbally confirm post op weight bearing status, proper sizing of AD's. Met Time Frame for Goals and Treatment : 01/18/24 Planned Interventions, Frequency, and Duration: 1 visit, 1 visit Total Number of Visits Planned: 1 Patient to be seen for Therapeutic exercise (02885), Gait Training ([id number]), Patient/Family/Caregiver Education, Body Mechanics Training PLAN FOR NEXT VISIT: Patient to return if needed for crutch practice SUBJECTIVE: Patient will be having L achilles tendon repair 01/31. Patient notes that he has 2 steps to enter home, and 6 steps to the floor he will be staying on. Tub style shower with no grab bars and normal toilet seat height. Functional Limitations: walking in the community, stair negotiation, bending, heavy exertion, physical activities, recreational activities, working Intake Information: Prescription present Pain: Pain Pain Level: 4 Pain Location: Heel - Left Description: Sharp, Aching Frequency: Intermittent PROMIS Scales 12/13/2023 Higher is Better Phys Func - Score 38 (moderate dysfunction) Phys Func - Percentile 12 Self-Eff Symptom - Score 35 (Low) Self-Eff Symptom - Percentile 7 T-scores: mean of general population = 50. 5 points is clinically meaningfully difference Percentiles provide an indication of how the patient's score ranks in relation to the general population. Higher percentile rankings indicate better function/quality of life. 50th percentile is the average of the general population and indicates half of respondents had a worse score. OBJECTIVE MEASURES WITH LEVEL OF FUNCTION: LE AROM R Ankle Dorsiflexion: 8 Degrees L Ankle Dorsiflexion: 10 Degrees LE Strength R LE Strength: 5/5 L Ankle Dorsiflexion (L4): 4+/5 L Ankle Plantar Flexion: 4/5 L Ankle Inversion: 4/5 L Ankle Eversion: 4/5 TREATMENT: Gait Trainin: Crutch transfer from bed to chair, stairs, and flat, level ground supervision assist 2: WW use on level ground and transfers from chair to chair supervision assist Skilled Intervention: Patient was provided supervision during pre-gait/gait training to prevent falls and insure safety. Facilitated proper gait cycle with the use of verbal and visual cues for correction of gait deviations identified in the objective section above. Gait belt utilized during session for safety. Skilled judgment used to assess selection, proper sizing, and proper use of assistive device. Education provided to patient regarding the proper sequence for stair negotiation. Self-Snf Management: 1: Discussed considerations for home set up, equipment needed, and how to practice crutch use, transfers, and scenario's he will need to work on for maintaining NWB status Skilled Intervention: Skilled judgment in the selection of proper modification for activity of daily living/home management based (more content not included)... [facility] 12-19-2023 History of Present illness Narrative Images from the original note were not included. Episode Visit Count: 4 Therapist That Will Accept/Oversee The Plan Of Care: Enoc Bynum Start of Care Date: 11/14/23 Onset Date: 04/11/23 REHABILITATION AND SPORTS THERAPY PHYSICAL THERAPY RE-EVALUATION PLAN OF CARE UPDATE: Assessment: Aston Napoles demonstrates difficulty with walking in the community, heavy exertion, physical activities, and working. He has new goals added to address with use of AD's. Patient continues to present with impairments in ADL's, independence in exercise, overall function, range of motion, strength, and symptom management that interfere with walking in the community, stair negotiation, bending, heavy exertion, physical activities, recreational activities, working . Current prognosis is Good due to: current objective clinical presentation, good overall health status, positive past response to therapy, good support system/ coping skills . He will benefit from continued skilled therapy services to meet the updated goals for this plan of care as noted below. Goals updated on 12/19/2023. Goals for Episode of Care: created on 11/14/23 through 01/16/24 [place] in home exercise program. Met Patient will decrease pain to 0/10 with functional activities to allow patient to improve standing tolerance for ADLs. Not met Patient will increase active ROM of L dorsiflexion to 10 degrees to allow pt to to improve performance of ADLs and to improve gait mechanics / gait pattern . Not met Patient will demonstrate increase in L plantarflexion strength to 5/5 during manual muscle testing in order to improve function for basic self-care tasks, home management tasks, leisure / recreation skills, light functional tasks, and work tasks. Not met Perform walking and stairs without pain. Not met Goals added 12/19/2023 Patient will demonstrate proper crutch use during transfers, even ground, and stairs with supervision guarding. Met Patient will verbally confirm post op weight bearing status, proper sizing of AD's. Met Time Frame for Goals and Treatment : 01/18/24 Planned Interventions, Frequency, and Duration: 1 visit, 1 visit Total Number of Visits Planned: 1 Patient to be seen for Therapeutic exercise ([id number]), Gait Training ([id number]), Patient/Family/Caregiver Education, Body Mechanics Training PLAN FOR NEXT VISIT: Patient to return if needed for crutch practice SUBJECTIVE: Patient will be having L achilles tendon repair 01/31. Patient notes that he has 2 steps to enter home, and 6 steps to the floor he will be staying on. Tub style shower with no grab bars and normal toilet seat height. Functional Limitations: walking in the community, stair negotiation, bending, heavy exertion, physical activities, recreational activities, working Intake Information: Prescription present Pain: Pain Pain Level: 4 Pain Location: Heel - Left Description: Sharp, Aching Frequency: Intermittent PROMIS Scales 12/13/2023 Higher is Better Phys Func - Score 38 (moderate dysfunction) Phys Func - Percentile 12 Self-Eff Symptom - Score 35 (Low) Self-Eff Symptom - Percentile 7 T-scores: mean of general population = 50. 5 points is clinically meaningfully difference Percentiles provide an indication of how the patient's score ranks in relation to the general population. Higher percentile rankings indicate better function/quality of life. 50th percentile is the average of the general population and indicates half of respondents had a worse score. OBJECTIVE MEASURES WITH LEVEL OF FUNCTION: LE AROM R Ankle Dorsiflexion: 8 Degrees L Ankle Dorsiflexion: 10 Degrees LE Strength R LE Strength: 5/5 L Ankle Dorsiflexion (L4): 4+/5 L Ankle Plantar Flexion: 4/5 L Ankle Inversion: 4/5 L Ankle Eversion: 4/5 TREATMENT: Gait Trainin: Crutch transfer from bed to chair, stairs, and flat, level ground supervision assist 2: WW use on level ground and transfers from chair to chair supervision assist Skilled Intervention: Patient was provided supervision during pre-gait/gait training to prevent falls and insure safety. Facilitated proper gait cycle with the use of verbal and visual cues for correction of gait deviations identified in the objective section above. Gait belt utilized during session for safety. Skilled judgment used to assess selection, proper sizing, and proper use of assistive device. Education provided to patient regarding the proper sequence for stair negotiation. Self-Snf Management: 1: Discussed considerations for home set up, equipment needed, and how to practice crutch use, transfers, and scenario's he will need to work on for maintaining NWB status Skilled Intervention: Skilled judgment in the selection of proper modification for activity of daily living/home management based on clinical presentation, deficits, and needs. Reviewed patient specific diagnosis in relation to activities of daily living/home management. Activity progression based on professional judgement. Billing * Re-Evaluation Complexity: 1 Unit Self-Care/Home Management Treatment Minutes: 10 Gait Training Treatment Minutes: 20 Skilled Treatment Time Minutes (timed and untimed codes): 43 Total Session Time (minutes): 43 Session Start Time : 819 Session Stop Time : 902 Enoc Bynum PT documented in this encounter [facility] 12-13-2023 Note HNO ID: [id number] Author: ENOC BYNUM PT Service: ? Author Type: Physical Therapist Type: Progress Notes Filed: 12/13/2023 09:55 Note Text: Episode Visit Count: 3 Therapist That Will Accept/Oversee The Plan Of Care: Enoc Bynum Start of Care Date: 11/14/23 Onset Date: 04/11/23 Patient Identified by Name and Date of : Yes REHABILITATION AND SPORTS THERAPY PHYSICAL THERAPY TREATMENT NOTE ASSESSMENT: Aston Napoles tolerated the session with fatigue, decreased symptoms, and expected muscle soreness. He demonstrated discomfort with IASTM, but stated that it was a good discomfort. The patient will continue to benefit from ongoing skilled physical therapy to progress toward set goals. PLAN FOR NEXT VISIT: Possible eval for NWB restrcitions per physicians reccomendations. SUBJECTIVE: Pt reports that he had a terrible stabbing pain in his L upper calf last night, unsure what caused it or if it was from doing his exercises. RLE is feeling better with stretches, but is still irritated. Pain: Pain Pain Level: 4 Pain Location: Heel - Left Description: Sharp, Aching Post Treatment Pain Post Treatment Pain Level: No Change Post Treatment Pain Location: Heel - Left OBJECTIVE MEASURES WITH LEVEL OF FUNCTION: Soft tissue restrictions noted throughout L Achilles. TREATMENT: Therapeutic Exercise: 1: Strap assisted gastroc stretch 3x30 sec B 2: Strap assisted soleus stretch 3x30 sec B Skilled Intervention: Patient was educated in proper exercise technique and purpose for exercises. Skilled judgment was used in selection of appropriate interventions. Correct performance of therapeutic exercises was facilitated with verbal and visual cuing. Manual Therapy: 1: IASTM to L gastroc/achilles complex x12 min Skilled Intervention: Manual skills to improve joint mobility, ROM, and decrease pain. Utilized anatomy knowledge of the therapist, and assessment of patient's response to intervention. Self-Snf Management: 1: Discussion on what to expect after surgery per physicains reccomendations of 3 weeks NWB. Skilled Intervention: Skilled judgment in the selection of proper modification for activity of daily living/home management based on clinical presentation, deficits, and needs. Activity progression based on professional judgement. Billing Therapeutic Exercise Treatment Minutes: 12 Manual TherapyTreatment Minutes: 15 Self-Care/Home Management Treatment Minutes: 13 Total Session Time (minutes): 40 Session Start Time : 803 Session Stop Time : 843 EVON Alexander, PT [facility] 12-13-2023 History of Present illness Narrative Episode Visit Count: 3 Therapist That Will Accept/Oversee The Plan Of Care: Enoc Bynum Start of Care Date: 11/14/23 Onset Date: 04/11/23 Patient Identified by Name and Date of : Yes REHABILITATION AND SPORTS THERAPY PHYSICAL THERAPY TREATMENT NOTE ASSESSMENT: Aston Napoles tolerated the session with fatigue, decreased symptoms, and expected muscle soreness. He demonstrated discomfort with IASTM, but stated that it was a good discomfort. The patient will continue to benefit from ongoing skilled physical therapy to progress toward set goals. PLAN FOR NEXT VISIT: Possible eval for NWB restrcitions per physicians reccomendations. SUBJECTIVE: Pt reports that he had a terrible stabbing pain in his L upper calf last night, unsure what caused it or if it was from doing his exercises. RLE is feeling better with stretches, but is still irritated. Pain: Pain Pain Level: 4 Pain Location: Heel - Left Description: Sharp, Aching Post Treatment Pain Post Treatment Pain Level: No Change Post Treatment Pain Location: Heel - Left OBJECTIVE MEASURES WITH LEVEL OF FUNCTION: Soft tissue restrictions noted throughout L Achilles. TREATMENT: Therapeutic Exercise: 1: Strap assisted gastroc stretch 3x30 sec B 2: Strap assisted soleus stretch 3x30 sec B Skilled Intervention: Patient was educated in proper exercise technique and purpose for exercises. Skilled judgment was used in selection of appropriate interventions. Correct performance of therapeutic exercises was facilitated with verbal and visual cuing. Manual Therapy: 1: IASTM to L gastroc/achilles complex x12 min Skilled Intervention: Manual skills to improve joint mobility, ROM, and decrease pain. Utilized anatomy knowledge of the therapist, and assessment of patient's response to intervention. Self-Snf Management: 1: Discussion on what to expect after surgery per physicains reccomendations of 3 weeks NWB. Skilled Intervention: Skilled judgment in the selection of proper modification for activity of daily living/home management based on clinical presentation, deficits, and needs. Activity progression based on professional judgement. Billing Therapeutic Exercise Treatment Minutes: 12 Manual TherapyTreatment Minutes: 15 Self-Care/Home Management Treatment Minutes: 13 Total Session Time (minutes): 40 Session Start Time : 803 Session Stop Time : 843 EVON Alexander PT documented in this encounter [facility] 12-08-2023 Instructions Pato Lucas RN - 12/08/2023 8:50 AM EDT Images from the original note were not included. Pre-Operative Education Carmen Rojas MD Foot & Ankle / Orthopedic Surgery Appointments Direct Office Surgery Date: Surgery Location: [facility] [employer] [address] [place], [place] [id number] [facility] [address] [place] [address] You will be contacted the afternoon before your surgery with information and the time for arrival on day of surgery. The surgery center will call you, not our office. Follow-Up/Emergency Contacts Follow-up with Dr. Carmen Rojas's office 1 week after surgery for post-operative evaluation - you will be scheduled to see Dr. Rojas, Tyra Sandra PA-C or our nurse Pato Lucas RN for your post-operative visit. Please call for an appointment if one has not been scheduled by the time of surgery. For after-hours concerns, please call , and ask for the orthopedic resident construction technician Pre-Surgical Checklist: Pre-Anesthesia Physical Exam Appointment '[facility]' (Pre-Anesthesia Consultation Clinic) - the surgery schedulers will likely make this appointment for you, however you may call [phone] to make an appointment. This appointment must be completed within 30 days prior to the date of surgery. Lab work We test vitamin D for all of our surgical patients. Please call the lab to schedule an appointment: [phone] or walk-in is available. The pre-anesthesia consultation clinic may order additional lab work. If you choose to have the vitamin D level drawn with the labs that are ordered with the anesthesia appointment, please tell the lab to also collect the vitamin D test. Physical Therapy-Crutch/Walker Training This appointment is for learning how to use crutches/walker while you are non-weight bearing AND they may supply you with the crutches/walker you bring with on the day of surgery. This a required appointment prior to surgery. If you need a prescription for any medical equipment please contact our office. Please check with your insurance company first as many insurance companies do not cover the cost of some medical equipment. Neither Orthopedics nor PT will be able to membership counselor you on insurance coverage questions. To schedule, call Rehabilitation and Sports Therapy: [phone] to make an appointment for the fitting and instruction in the use of crutches or a walker PRIOR to your surgery date. Again, not all PT or [facility] Orthopedic clinic locations have crutches/walkers to dispense to patients. If crutches/walker are not available at the time of your PT appointment, please contact our office ([phone]) for a prescription or you may purchase them at any drug store ([employer], etc) out of pocket. Always check with your insurance company first regarding coverage/reimbursement for medical equipment. You MUST bring your crutches or walker with you the day of surgery. If you do not have medical equipment for safe mobility following surgery, your case will likely be cancelled and rescheduled. Skin Prep Prior to Surgery (if you are not in a splint or cast prior to surgery) Please do skin checks of your surgical limb in the week prior to your surgery. If you notice any bruises, open sores, blisters or scabs please call the office to let us know Wipes may have been provided in the office, however you may purchase the cleaning soap at most pharmacies Eating & Drinking prior to surgery Please follow directions provided by anesthesia at [facility] (pre-op physical) If you were not provided instructions by anesthesia regarding eating/drinking before surgery, Do not eat or drink anything after midnight the evening before surgery (including gum or candy). Discontinue NSAIDS (Aleve, Ibuprofen, Meloxicam, Celebrex) 7 days prior to surgery. Tylenol does not need to be discontinued. Some patients who take aspirin do not need to hold this before surgery. Anesthesia will determine if this needs to be held, and it will be discussed during the pre-anesthesia clinic appointment. Day of Surgery Plan to bring crutches/walker with you to the surgery center. Wear comfortable clothing to the surgery center that is loose on the bottom to accommodate for the splint or dressing. Please arrange for a friend or family member to drive you to and from the surgery center (public transportation, taxis, and Uber/Lyft are not allowed). Do not wear any make-up. Remove toenail serbian on the surgical foot. Do not wear contacts. Do not shave the surgical area. Bring your CPAP if you have one. Post-Operative Pain Medication Refill requests can be made Tuesday through Tuesday by calling the office, ; same day requests may not be granted. Prescriptions for pain medication will only be written for up to 6 weeks maximum If you have any questions or concerns, please call the office, General Post-Operative Instructions Cast/Splint/Dressing Care Instructions Keep cast/dressing clean and dry. May shower - but cast/dressing must remain dry. You can purchase a cast cover to keep the splint/cast dry while bathing either online or at an outpatient pharmacy like [employer]. Should the dressing/cast become wet, you need to call your physician's clinic immediately for cast removal and replacement. Moisture can cause skin breakdown and lead to infection if left untreated. Observe for increasing pain in the extremity with the cast, finger/toe-tips turning blue/purple, or numbness and tingling in your toes/fingers. Should any of these symptoms arise, you need to be seen immediately for evaluation of swelling and increasing compartment pressures within your affected extremity. Keep your affected extremity elevated - Toes Above your Nose - This is collado in the first few weeks after surgery to minimize swelling and pain. You may ice your extremity behind your knee, being careful to prevent melting ice from saturating into the splint/cast. Activity restriction while Non-Weight Bearing No driving while on narcotic pain medication. Do not get your dressing/cast/splint wet! You must remain non-weight bearing on your operative extremity unless instructed otherwise. Use crutches or a walker for ambulation. No driving until you are otherwise instructed by your physician. This will be addressed at your first follow-up appointment. Medications You will be prescribed pain medication. You should begin taking this the day of your surgery. Do not wait until the pain is severe, as it will be difficult to catch up once this occurs. The pain medication usually reaches its full effect ~1 hour after ingesting. If you have been sent home on Colace, this medication should be taken until you are off all narcotic pain medications in order to prevent constipation. [place]/Percocet have Tylenol in their ingredients. You must be careful not to exceed 3,000mg (3 grams) of Tylenol, from all sources, within a single 24-hr period. Do NOT take Regular or Extra Strength Tylenol when taking your Percocet or [place]ana medications Common side effects of the narcotic pain medications are nausea and itching. Benadryl can be taken to help calm your stomach, decrease anxiety levels, and minimize itching. This can be purchased at your local pharmacy without a prescription. Please abide by the instructions as printed on the bottle. If your nausea persists, make sure to take small amounts of crackers or other wire inserter foods. You will be prescribed a course of Aspirin (325 mg twice daily) after surgery, in order to minimize the risk of blood clots following surgery. If you have additional risks factors for developing a blood clot, you will be prescribed a prescription medication instead of using aspirin. Pre-Operative Skin Cleansing Preparing or prepping skin before surgery can reduce the risk of infection at the surgical site. Chlorhexidine Gluconate (CHG) antiseptic solution / Hibiclens has been chosen for the preoperative skin preparation. We provide the chlorhexidine wipes in clinic. If you did not receive the chlorhexidine wipes in clinic you can purchase Hibiclens soap over the counter at any pharmacy. The steps below outline the prepping process and should be carefully followed. If allergic reaction occurs, stop using. Chlorhexidine Gluconate WIPES Instructions: Prior to use: Avoid shaving or the use of any topical hair removers. Shaving/hair removal can increase the risk of infection for the patient. Once prepping begins, do not apply lotions, moisturizers or makeup. Do not use skin preparation on head, hair, face, or genital area. Keep out of eyes, ears, or mouth. If contact occurs in any of these areas, rinse with water right away. Night Before & Morning of Surgery The evening before surgery and the morning of surgery take a shower and wash as you normally would. When applying the chlorhexidine wipes, your skin should be completely dry. Six wipes are provided to use (there are 2 wipes per pack). Use 2 wipes to collectively clean your neck/chest/back/abdomen/arms and nonsurgical leg. Use 1 wipe to clean the surgical leg. Clean the surgical area vigorously back and forth for 3 minutes, completely wetting treatment area, and then discard the wipes. Allow area to air dry for one minute. Do not rinse. It is normal for the skin to have a temporary tacky feel for several minutes after the antiseptic solution is applied. Do NOT apply any moisturizers, powder, or deodorant. Dress with freshly washed clothes. documented in this encounter [facility] 12-08-2023 History of Present illness Narrative Aston Farrar Dony Consultation requested by Aston Mcmahan DPM for an opinion regarding Mr. Aston Napoles, and my final recommendations will be communicated back to the requesting physician by way of shared medical record or letter via [place] mail. CHIEF COMPLAINT: LEFT Foot Pain HISTORY OF PRESENT ILLNESS: This is a 48 year old male who presents today for evaluation of left foot pain. Patient reports a history of left achilles pain beginning in 2019 with no specific injury. Then he established with Dr. Martir OCHOA and underwent several months of physical therapy and daily NSAID therapy. He also modified his activities and changed his shoewear from dress shoes to supportive tennis shoes. He reports his previous severe symptoms improved to a constant dull ache with waxing and waning symptoms. Without new injury, his symptoms became more severe 8 months ago. Then he again followed up with Dr Mcmahan and resumed PT and use of daily NSAIDS. Despite these therapies, he continues to have constant daily pain that does cause him to limp, is limiting his tolerance for enjoying walks with his and greatly affecting his quality of life. He previously discussed surgery with Dr. Mcmahan and presents today to discuss surgical consideration. Location of Pain: Left foot The pain is constant. The pain is a 1/10 at its best, and 9/10 at its worst. They reports nocturnal pain. The pain is exacerbated by walking, managing stairs, prolonged standing, and running. The pain is improved with ice, biofreeze, physical therapy and NSAIDS. They deny Numbness, Tingling. Endorses Pain. They are able to walk 10 minutes before having to stop secondary to pain. 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 Smoking History: never Personal or Family Hx of DVT/PE: No; None Diabetic:No Last Hgba1c: Hemoglobin A1C (%) Date Value 12/16/2022 5.2 ) ASSESSMENT/PLAN: Achilles Tendinitis Left Lower Extremity (insertional) Treatment options were reviewed in depth including non operative treatment options consisting of physical therapy, CAM boot immobilization, activity modification and daily NSAID therapy, as well as, surgical intervention. Pro's and con's of both were reviewed. At this point, patient feels he has exhausted conservative therapy and his symptoms are causing him chronic daily pain that is greatly affecting his tolerance for most activities and overall quality of life. He desires to proceed with surgical intervention and risks of surgery were reviewed and consent signed. Thank you for the opportunity to participate in this patient's care. PHYSICAL EXAMINATION: Left Lower Extremity: grossly intact ROM and strength, no obvious deformity. Left Lower Extremity: Gait Cycle: Normal No, Limp: antalgic:left. Inspection: Alignment: neutral heel Symmetry: Swelling: no. Redness: no. Ecchymosis: no Effusion: 0 Palpation: Warmth: no, Tenderness:Yes: Foot Posterior Heel. Pain present at the posterolateral calcaneal tuberosity. No mid substance achilles ttp. ROM: Ankle- Extension:0 Ankle-Flexion:60 Ankle- Inversion: 10 Ankle- Eversion: 10. Strength: 5 Stability: Ligamentous instability: no Specialized Tests: Damon Test: Good plantar flexion Neurologic Status: Sensation to all 4 compartments of lower extremity are grossly intact to light touch today in the office. Vascular Status: Posterior Tibial: 2+ Bilateral Dorsalis Pedis: 2+ Bilateral Skin: Normal IMAGING: Left Foot Xrays (3V) obtained Oct 10, 2023 and Left Ankle MRI w/o obtained Nov 10, 2023. Final results and radiologist's interpretation, available in the [facility] health record. Images were reviewed with the patient/family members in the office today. My personal interpretation of the performed imaging is a large posterior calcaneal enthesophyte noted on xray. No fractures or dislocations. On MRI there is evidence of chronic appearing insertional achilles tendinosis with prominent enthesophyte with mild calcaneal bone marrow edema. Jaylene Balderrama DO Fellow Orthopaedic Attending Addendum Attending Note: Collado findings of HPI confirmed. Patient examined. Discussed with the fellow and the patient. Plan as outlined below. ASSESSMENT/PLAN: 1. Achilles tendinitis of left lower extremity - ICD9: 726.71, ICD10: M76.62 - L ankle XR and MRI reviewed Aston and I discussed his insertional Achilles tendinitis. We discussed continued nonoperative treatment versus surgery. We discussed the risk, benefits, outcomes, expected recovery with surgery. At this time he feels he is exhausted nonoperative treatment, would like to go ahead with surgery. We discussed this would be an Achilles tendon debridement, calcaneal exostectomy, and possible FHL tendon transfer. We discussed the surgery in detail, including the expected recovery, outcomes, risks and benefits. They will be Non-weight bearing for 3 weeks after surgery. They understand it will take them 12 months to fully recover from the surgery. The risks and benefits of surgery were discussed today, including, but not limited to: bleeding ,infection, damage to blood vessels and nerves, nerve pain, wound healing problems, persistent pain, persistent weakness, rupture of the tendon, blood clots, and incomplete relief of symptoms. He understood, and agreed to go ahead. My office will begin scheduling surgery. They were provided with chlorhexidine wipes/soap and instructions in the office today. Post-op pain medication will be [place] 5/325 mg 1 tab q 4 hrs (#42) We discussed DVT Prophylaxis, and they will use ASA 325 mg BID Pre-operative antibiotics will be Ancef. BRAYDEN Modifiable Risk Factors (MoRF) Diabetes normal High: A1C > 8 Moderate: A1C 7-8 Normal: A1C < 7 Smoking normal High: Current smoker Normal: Non smoker Narcotics Use Moderate Risk High:NarxCare >=300 Moderate: 100-299 Normal: 0-99 Carmen Rojas MD Orthopaedic Medical Decision Making (MDM) Complexity of problems: Tendinopathy exacerbation or progression, Complexity of data: 2 unique test results reviewed, Risk: Decision on elective major surgery w/risk factors, Level of MDM: Moderate (4) documented in this encounter [facility] 12-08-2023 Note HNO ID: [id number] Author: CARMEN ROJAS MD Service: ? Author Type: Physician Type: Progress Notes Filed: 12/09/2023 13:02 Note Text: Aston Napoles Consultation requested by Aston Mcmahan DPM for an opinion regarding Mr. Aston Napoles, and my final recommendations will be communicated back to the requesting physician by way of shared medical record or letter via [place] mail. CHIEF COMPLAINT: LEFT Foot Pain HISTORY OF PRESENT ILLNESS: This is a 48 year old male who presents today for evaluation of left foot pain. Patient reports a history of left achilles pain beginning in 2019 with no specific injury. Then he established with Dr. Martir OCHOA and underwent several months of physical therapy and daily NSAID therapy. He also modified his activities and changed his shoewear from dress shoes to supportive tennis shoes. He reports his previous severe symptoms improved to a constant dull ache with waxing and waning symptoms. Without new injury, his symptoms became more severe 8 months ago. Then he again followed up with Dr Mcmahan and resumed PT and use of daily NSAIDS. Despite these therapies, he continues to have constant daily pain that does cause him to limp, is limiting his tolerance for enjoying walks with his and greatly affecting his quality of life. He previously discussed surgery with Dr. Mcmahan and presents today to discuss surgical consideration. Location of Pain: Left foot The pain is constant. The pain is a 1/10 at its best, and 9/10 at its worst. They reports nocturnal pain. The pain is exacerbated by walking, managing stairs, prolonged standing, and running. The pain is improved with ice, biofreeze, physical therapy and NSAIDS. They deny Numbness, Tingling. Endorses Pain. They are able to walk 10 minutes before having to stop secondary to pain. 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 Smoking History: never Personal or Family Hx of DVT/PE: No; None Diabetic:No Last Hgba1c: Hemoglobin A1C (%) Date Value 12/16/2022 5.2 ) ASSESSMENT/PLAN: Achilles Tendinitis Left Lower Extremity (insertional) Treatment options were reviewed in depth including non operative treatment options consisting of physical therapy, CAM boot immobilization, activity modification and daily NSAID therapy, as well as, surgical intervention. Pro's and con's of both were reviewed. At this point, patient feels he has exhausted conservative therapy and his symptoms are causing him chronic daily pain that is greatly affecting his tolerance for most activities and overall quality of life. He desires to proceed with surgical intervention and risks of surgery were reviewed and consent signed. Thank you for the opportunity to participate in this patient's care. PHYSICAL EXAMINATION: Left Lower Extremity: grossly intact ROM and strength, no obvious deformity. Left Lower Extremity: Gait Cycle: Normal No, Limp: antalgic:left. Inspection: Alignment: neutral heel Symmetry: Swelling: no. Redness: no. Ecchymosis: no Effusion: 0 Palpation: Warmth: no, Tenderness:Yes: Foot Posterior Heel. Pain present at the posterolateral calcaneal tuberosity. No mid substance achilles ttp. ROM: Ankle- Extension:0 Ankle-Flexion:60 Ankle- Inversion: 10 Ankle- Eversion: 10. Strength: 5 Stability: Ligamentous instability: no Specialized Tests: Damon Test: Good plantar flexion Neurologic Status: Sensation to all 4 compartments of lower extremity are grossly intact to light touch today in the office. Vascular Status: Posterior Tibial: 2+ Bilateral Dorsalis Pedis: 2+ Bilateral Skin: Normal IMAGING: Left Foot Xrays (3V) obtained Oct 10, 2023 and Left Ankle MRI w/o obtained Nov 10, 2023. Final results and radiologist's interpretation, available in the [facility] health record. Images were reviewed with the patient/family members in the office today. My personal interpretation of the performed imaging is a large posterior calcaneal enthesophyte noted on xray. No fractures or dislocations. On MRI there is evidence of chronic appearing insertional achilles tendinosis with prominent enthesophyte with mild calcaneal bone marrow edema. Jaylene Balderrama DO Fellow Orthopaedic Attending Addendum Attending Note: [place] findings of HPI confirmed. Patient examined. Discussed with the fellow and the patient. Plan as outlined below. ASSESSMENT/PLAN: 1. Achilles tendinitis of left lower extremity - ICD9: 726.71, ICD10: M76.62 - L ankle XR and MRI reviewed Aston and I discussed his insertional Achilles tendinitis. We discussed continued nonoperative treatment versus surgery. We discussed the risk, benefits, outcomes, expected recovery with surgery. At this time he feels he is exhausted nonoperative treatment, would like to go ahead with surgery. We discusse (more content not included)... [facility] 12-05-2023 Note HNO ID: [id number] Author: ENOC BYNUM PT Service: ? Author Type: Physical Therapist Type: Progress Notes Filed: 12/05/2023 13:48 Note Text: Episode Visit Count: 2 Therapist That Will Accept/Oversee The Plan Of Care: Enoc Bynum Start of Care Date: 11/14/23 Onset Date: 04/11/23 REHABILITATION AND SPORTS THERAPY PHYSICAL THERAPY TREATMENT NOTE ASSESSMENT: Aston Napoles tolerated the session with decreased symptoms and expected muscle soreness. He demonstrated improvements in L heel pain. The patient will continue to benefit from ongoing skilled physical therapy to progress toward set goals. PLAN FOR NEXT VISIT: Needling candidate if calf tightness does not ease. SUBJECTIVE: L heel seems to be getting better, but notes the R started flaring after his trip to [place]. Pain: Pain Pain Level: 6 Pain Location: Heel - Right Description: Sharp, Aching, Tightness Frequency: Continuous OBJECTIVE MEASURES WITH LEVEL OF FUNCTION: LE AROM L Ankle Dorsiflexion: 10 Degrees TREATMENT: Therapeutic Exercise: 1: Strap assisted gastroc stretch 3x30 sec 2: Strap assisted soleus stretch 3x30 sec 3: Discussed walking program with patient and how to progress for HEP Skilled Intervention: Patient was educated in proper exercise technique and purpose for exercises. Skilled judgment was used in selection of appropriate interventions. Provided written instruction for home exercise program to facilitate proper performance and compliance. Correct performance of therapeutic exercises was facilitated with verbal, visual, and tactile cuing. Manual Therapy: 1: IASTM to B gastroc/achilles complex x15 min each Skilled Intervention: Manual skills to improve joint mobility, ROM, and decrease pain. Utilized anatomy knowledge of the therapist, and assessment of patient's response to intervention. Billing Therapeutic Exercise Treatment Minutes: 12 Manual TherapyTreatment Minutes: 27 Skilled Treatment Time Minutes (timed and untimed codes): 39 Total Session Time (minutes): 39 Session Start Time : 819 Session Stop Time : 858 Enoc Bynum PT [facility] 12-05-2023 History of Present illness Narrative Episode Visit Count: 2 Therapist That Will Accept/Oversee The Plan Of Care: Enoc Bynum Start of Care Date: 11/14/23 Onset Date: 04/11/23 REHABILITATION AND SPORTS THERAPY PHYSICAL THERAPY TREATMENT NOTE ASSESSMENT: Aston Napoles tolerated the session with decreased symptoms and expected muscle soreness. He demonstrated improvements in L heel pain. The patient will continue to benefit from ongoing skilled physical therapy to progress toward set goals. PLAN FOR NEXT VISIT: Needling candidate if calf tightness does not ease. SUBJECTIVE: L heel seems to be getting better, but notes the R started flaring after his trip to [place]. Pain: Pain Pain Level: 6 Pain Location: Heel - Right Description: Sharp, Aching, Tightness Frequency: Continuous OBJECTIVE MEASURES WITH LEVEL OF FUNCTION: LE AROM L Ankle Dorsiflexion: 10 Degrees TREATMENT: Therapeutic Exercise: 1: Strap assisted gastroc stretch 3x30 sec 2: Strap assisted soleus stretch 3x30 sec 3: Discussed walking program with patient and how to progress for HEP Skilled Intervention: Patient was educated in proper exercise technique and purpose for exercises. Skilled judgment was used in selection of appropriate interventions. Provided written instruction for home exercise program to facilitate proper performance and compliance. Correct performance of therapeutic exercises was facilitated with verbal, visual, and tactile cuing. Manual Therapy: 1: IASTM to B gastroc/achilles complex x15 min each Skilled Intervention: Manual skills to improve joint mobility, ROM, and decrease pain. Utilized anatomy knowledge of the therapist, and assessment of patient's response to intervention. Billing Therapeutic Exercise Treatment Minutes: 12 Manual TherapyTreatment Minutes: 27 Skilled Treatment Time Minutes (timed and untimed codes): 39 Total Session Time (minutes): 39 Session Start Time : 819 Session Stop Time : 858 Enoc Bynum PT documented in this encounter [facility] 11-16-2023 Note HNO ID: [id number] Author: ENOC BYNUM PT Service: ? Author Type: Physical Therapist Type: Progress Notes Filed: 11/16/2023 16:32 Note Text: Episode Visit Count: 1 Therapist That Will Accept/Oversee The Plan Of Care: Enoc Bynum Start of Care Date: 11/14/23 Onset Date: 04/11/23 Patient Identified by Name and Date of : Yes REHABILITATION AND SPORTS THERAPY PHYSICAL THERAPY EVALUATION PLAN OF CARE: Assessment: Aston Napoles presents with chief complaint of achilles tendinosis that interferes with standing, walking, stair negotiation, bending, heavy exertion, lifting, physical activities, recreational activities, running, working . He presents with impairments in ADL's, gait, overall function, range of motion, strength, symptom management, and tissue tenderness. Patient did not complete the PROMIS? (Patient Reported Outcome Measures Information System). Prognosis for therapy is Fair due to: clinical presentation, chronic nature of impairments, limited tolerance to activity . He will benefit from skilled therapy services to meet the goals established for this plan of care as noted below. Goals for Episode of Care: created on 11/14/23 through 01/16/24 [place] in home exercise program. Patient will decrease pain to 0/10 with functional activities to allow patient to improve standing tolerance for ADLs. Patient will increase active ROM of L dorsiflexion to 10 degrees to allow pt to to improve performance of ADLs and to improve gait mechanics / gait pattern . Patient will demonstrate increase in L plantarflexion strength to 5/5 during manual muscle testing in order to improve function for basic self-care tasks, home management tasks, leisure / recreation skills, light functional tasks, and work tasks. Perform walking and stairs without pain. Planned Interventions, Frequency, and Duration: Current Frequency: 1x/week Duration: 8 weeks Total Number of Visits Planned: 8 Planned Treatment Interventions: Therapeutic exercise (13514), Neuromuscular re-education (35036), Manual therapy (81241), Therapeutic activities (54819), Self-correction management (75897), Patient/Family/Caregiver Education, Body Mechanics Training PLAN FOR NEXT VISIT: May be a needling candidate, progressing to eccentrics Patient demonstrates good understanding of plan of care and treatment. The above goals and plan of care were discussed and agreed upon by patient/family. SUBJECTIVE: L heel pain for 5 years with worsening symptoms, decreasing function. Walking, standing, stairs, and running all make pain worse. Nothing really helps Functional Limitations: standing, walking, stair negotiation, bending, heavy exertion, lifting, physical activities, recreational activities, running, working Intake Information: Prescription present Pain: Pain Pain Level: 6 Pain Location: Heel - Left Description: Sharp, Aching, Sore, Tightness Frequency: Continuous PROMIS Scales T-scores: mean of general population = 50. 5 points is clinically meaningfully difference Percentiles provide an indication of how the patient's score ranks in relation to the general population. Higher percentile rankings indicate better function/quality of life. 50th percentile is the average of the general population and indicates half of respondents had a worse score. OBJECTIVE MEASURES WITH LEVEL OF FUNCTION: LE AROM R Ankle Dorsiflexion: 6 Degrees R Ankle Plantar Flexion: 55 Degrees R Ankle Inversion: 25 R Ankle Eversion: 8 L Ankle Dorsiflexion: 3 Degrees L Ankle Plantar Flexion: 55 Degrees L Ankle Inversion: 18 L Ankle Eversion: 15 LE Strength R LE Strength: 5/5 L Ankle Dorsiflexion (L4): 4+/5 L Ankle Plantar Flexion: 4-/5 L Ankle Inversion: 4-/5 L Ankle Eversion: 4/5 Education: Education Learning/educational needs: Home exercise program, Plan of Care, Changes in Plan of Care TREATMENT: PT Treatment Interventions: Therapeutic Exercise, Manual Therapy, Self-Snf Management Evaluation Therapeutic Exercise: 1: *Strap assisted gastroc stretch 3x30 sec 2: *Strap assisted soleus stretch 3x30 sec Skilled Intervention: Patient was educated in proper exercise technique and purpose for exercises. Skilled judgment was used in selection of appropriate interventions. Provided written instruction for home exercise program to facilitate proper performance and compliance. Correct performance of therapeutic exercises was facilitated with verbal, visual, and tactile cuing. Manual Therapy: 1: IASTM to L gastroc and achilles complex x10 min with push to tolerance Skilled Intervention: Manual skills to improve joint mobility, ROM, and decrease pain. Utilized anatomy knowledge of the therapist, and assessment of patient's response to intervention. Self-Snf Management: 1: Reviewed imaging and discussed rehab implications 2: Long discussion on plan of care options, educated (more content not included)... [facility] 11-16-2023 History of Present illness Narrative Episode Visit Count: 1 Therapist That Will Accept/Oversee The Plan Of Care: Enoc Bynum Start of Care Date: 11/14/23 Onset Date: 04/11/23 Patient Identified by Name and Date of : Yes REHABILITATION AND SPORTS THERAPY PHYSICAL THERAPY EVALUATION PLAN OF CARE: Assessment: Aston Napoles presents with chief complaint of achilles tendinosis that interferes with standing, walking, stair negotiation, bending, heavy exertion, lifting, physical activities, recreational activities, running, working . He presents with impairments in ADL's, gait, overall function, range of motion, strength, symptom management, and tissue tenderness. Patient did not complete the PROMIS (Patient Reported Outcome Measures Information System). Prognosis for therapy is Fair due to: clinical presentation, chronic nature of impairments, limited tolerance to activity . He will benefit from skilled therapy services to meet the goals established for this plan of care as noted below. Goals for Episode of Care: created on 11/14/23 through 01/16/24 [place] in home exercise program. Patient will decrease pain to 0/10 with functional activities to allow patient to improve standing tolerance for ADLs. Patient will increase active ROM of L dorsiflexion to 10 degrees to allow pt to to improve performance of ADLs and to improve gait mechanics / gait pattern . Patient will demonstrate increase in L plantarflexion strength to 5/5 during manual muscle testing in order to improve function for basic self-care tasks, home management tasks, leisure / recreation skills, light functional tasks, and work tasks. Perform walking and stairs without pain. Planned Interventions, Frequency, and Duration: Current Frequency: 1x/week Duration: 8 weeks Total Number of Visits Planned: 8 Planned Treatment Interventions: Therapeutic exercise (51667), Neuromuscular re-education (58925), Manual therapy (70046), Therapeutic activities (44774), Self-correction management (00711), Patient/Family/Caregiver Education, Body Mechanics Training PLAN FOR NEXT VISIT: May be a needling candidate,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 (LOTRISONE) cream Apply to affected area twice daily as needed. COMPOUNDED PRESCRIPTION Increase CPAP setting to 13 cm H2O pressure. Dx: KEYLA CPAP Initiate CPAP @ 11 cm of water with humidification. Mask (per patient preference) optional chin strap (if indicated) , filters, tubing, humidifier and lifetime supplies. CETIRIZINE HCL (ZYRTEC ORAL) Take 1 tablet by mouth two times a day. ixekizumab (TALTZ AUTOINJECTOR) 80 mg/mL pen Inject 80 mg subcutaneously one time only. (Patient not taking: Reported on 10/10/2023) No current facility-administered medications for this visit. Objective BP 130/87 (BP Site: Left Arm, BP Position: Sitting, BP Cuff Size: Large Adult) Pulse 79 Ht 174.2 cm (5' 8.6 ) Wt 102.1 kg (225 lb) BMI 33.62 kg/m? Physical Exam Constitutional: Appearance: Normal appearance. HENT: Head: Normocephalic. Nose: Nose normal. Eyes: Extraocular Movements: Extraocular movements intact. Conjunctiva/sclera: Conjunctivae normal. Cardiovascular: Rate and Rhythm: Normal rate and regular rhythm. Heart sounds: No murmur heard. No gallop. Pulmonary: Breath sounds: Normal breath sounds. Abdominal: Palpations: Abdomen i (more content not included)... [facility] 10-31-2023 History of Present illness Narrative This note was created using [employer]. Subjective Patient presents with: Yearly Exam F/U 6 months Aston Napoles is a 48 year old male. He was dealing with more stress and anxiety from work and family reasons. He had gained weight from stress eating. Blood pressure was elevating as well. He had non exertional chest pain related to stress. He had a history of psoriasis and suspected psoriatic arthritis due to improvement in joint pains when treated with Taltz. 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 He wanted a referral to transfer dermatology. He called in with 2 episodes of disturbance of smell. He had a history of seizure years ago with a similar nasal aura. He had no seizure or syncope. He has been feeling general joint pains and achiness for several months. Review of Systems Constitutional: Positive for unexpected weight change. Negative for activity change, appetite change, diaphoresis, fatigue and fever. HENT: Negative for congestion. Eyes: Negative for visual disturbance. Respiratory: Negative for cough, shortness of breath and wheezing. Cardiovascular: Negative for chest pain, palpitations and leg swelling. Gastrointestinal: Negative for abdominal pain, constipation, diarrhea, nausea and vomiting. Genitourinary: Negative for difficulty urinating and dysuria. Musculoskeletal: Positive for arthralgias and myalgias. Negative for gait problem and joint swelling. Skin: Positive for rash. Neurological: Negative for dizziness, seizures and headaches. Psychiatric/Behavioral: Positive for dysphoric mood. The patient is nervous/anxious. 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 02/04/2019 Seasonal allergic rhinitis 02/27/2018 Seizure disorder (HCC) 2001 twice initially, then none on medication for 9 years, weaned off successfully Somnolence, daytime 02/27/2018 PAST SURGICAL HISTORY Procedure Laterality Date APPENDECTOMY 1997 COLONOSCOPY SCREENING N/A 02/17/2023 future colonoscopies need MAC EXCISION PILONIDAL CYST/SINUS SIMPLE INGUINAL HERNIA REPAIR HX Bilateral 1993 1992 and 1993 each side PAST SURGICAL HISTORY OF 08/10/2023 DESTRUCTION OF ANAL CONDYLOMA SKIN BIOPSY HX TONSILLECTOMY HX 1980 FAMILY HISTORY Problem Relation Age of Onset [...] Comment: once a month Drug use: No ALLERGIES Allergen Reactions Compazine [Prochlor* Other: See Comments Jittery feeling Current Outpatient Medications Medication Sig fluticasone (FLONASE) 50 mcg/actuation nasal spray Use 2 Sprays in each nostril once daily. Rinse mouth after use. aspirin/acetaminophen/caffeine (EXCEDRIN MIGRAINE ORAL) Take by mouth. naproxen sodium (ALEVE ORAL) Take by mouth. DULoxetine (CYMBALTA) 30 mg capsule Take 1 capsule by mouth once daily. albuterol HFA (VENTOLIN HFA) 90 mcg/actuation inhaler Inhale 2 Puffs as instructed every 4 hours as needed for wheezing/shortness of breath. ALPRAZolam (XANAX) 0.25 mg tablet Take 0.25 mg by mouth as needed for anxiety. clotrimazole-betamethasone (LOTRISONE) cream Apply to affected area twice daily as needed. COMPOUNDED PRESCRIPTION Increase CPAP setting to 13 cm H2O pressure. Dx: KEYLA CPAP Initiate CPAP @ 11 cm of water with humidification. Mask (per patient preference) optional chin strap (if indicated) , filters, tubing, humidifier and lifetime supplies. CETIRIZINE HCL (ZYRTEC ORAL) Take 1 tablet by mouth two times a day. ixekizumab (TALTZ AUTOINJECTOR) 80 mg/mL pen Inject 80 mg subcutaneously one time only. (Patient not taking: Reported on 10/10/2023) No current facility-administered medications for this visit. Objective BP 130/87 (BP Site: Left Arm, BP Position: Sitting, BP Cuff Size: Large Adult) Pulse 79 Ht 174.2 cm (5' 8.6 ) Wt 102.1 kg (225 lb) BMI 33.62 kg/m Physical Exam Constitutional: Appearance: Normal appearance. HENT: Head: Normocephalic. Nose: Nose normal. Eyes: Extraocular Movements: Extraocular movements intact. Conjunctiva/sclera: Conjunctivae normal. Cardiovascular: Rate and Rhythm: Normal rate and regular rhythm. Heart sounds: No murmur heard. No gallop. Pulmonary: Breath sounds: Normal breath sounds. Abdominal: Palpations: Abdomen is soft. Tenderness: There is no abdominal tenderness. Musculoskeletal: General: No swelling, tenderness or deformity. Cervical back: No tenderness. Right lower leg: No edema. Left lower leg: No edema. Skin: Comments: Dry patch intergluteal fold. Neurological: General: No focal deficit present. Mental Status: He is alert. EKG RESULTS: normal sinus rhythm, left axis deviation, and inferior infarct pattern. No change from prior EKG. Assessment and Plan 1. Routine medical exam - ICD9: V70.0, ICD10: Z00.00 (primary diagnosis) - Counseled on healthy diet and regular exercise - Discussed need for and benefit of weight loss. BMI 33.62 kg/(m^2) 2. Dermatitis - ICD9: 692.9, ICD10: L30.9 - discussed skin care of rash - CLOTRIMAZOLE-BETAMETHASONE 1 %-0.05 % TOPICAL CREAM - CONSULT TO DERMATOLOGY 3. Psoriasis - ICD9: 696.1, ICD10: L40.9 - CLOTRIMAZOLE-BETAMETHASONE 1 %-0.05 % TOPICAL CREAM - CONSULT TO DERMATOLOGY 4. Anxiety and depression - ICD9: 300.00, 311, ICD10: F41.9, F32.A Shared medical decision making was done. Situation may improve, so PRN alprazolam was refilled. - ALPRAZOLAM 0.25 MG TABLET 5. Disturbance of smell - ICD9: 781.1, ICD10: R43.9 - Schedule neurology consult. 6. History of seizure - ICD9: V13.89, ICD10: Z87.898 - As above. 7. Chest pain, atypical - ICD9: 786.59, ICD10: R07.89 Atypical chest pain, symptoms are not consistent with cardiac ischemia due to nonexertional nature of symptom possible etiology include Anxiety 8. Pain in joint involving multiple sites - ICD9: 719.49, ICD10: M25.50 Further recommendation will depend on results. - COMPLETE BLOOD COUNT - SEDIMENTATION RATE, WESTERGREN - C-REACTIVE PROTEIN - BASIC METABOLIC PANEL - VITAMIN D 25 HYDROXY Francisco Javier Osorio MD documented in this encounter [facility] 10-28-2023 Telephone encounter Note Patient was transferred to ma to arrange consult to Neurology I was unable to schedule and advised to warm transfer to [phone] [place] [address] to arrange this. I had to leave a voice mail with [facility], Name and contact number for them to contact the patient in the next 3 business days. Provided that number to the patient to follow up if he does not hear from them in 3 days also advise to call our office back if needed. [facility] 10-28-2023 Miscellaneous Notes Patient was transferred to ma to arrange consult to Neurology I was unable to schedule and advised to warm transfer to [phone] [place] [address] to arrange this. I had to leave a voice mail with [facility], Name and contact number for them to contact the patient in the next 3 business days. Provided that number to the patient to follow up if he does not hear from them in 3 days also advise to call our office back if needed. Phoned patient and went over notes below from Dr Osorio with understanding. Assisted with transfer to pharmacy scheduler to get Neurology appt set up. De stressing techniques. No swimming or climbing unprotected heights. Consult neurology. Patient calling he had seizure disorder when he was in his 20's and had weaned off the medication. He said they could never find out why was having seizures. Patient said yesterday and today he gets a pre seizure aura, smell of ammonia. He has not had a seizure but is under a lot of stress with his job. He took a xanax yesterday and it helped. He said he was going to take another today to calm him down. Patient has his normal appt with PCP on Tuesday10/31/2023. He said has not seen Neurologist for many years was in [place]. Patient asking is there anything more he should be doing? Please advise documented in this encounter [facility] 10-28-2023 Telephone encounter Note Phoned patient and went over notes below from Dr Osorio with understanding. Assisted with transfer to pharmacy scheduler to get Neurology appt set up. [facility] 10-28-2023 Telephone encounter Note De stressing techniques. No swimming or climbing unprotected heights. Consult neurology. [facility] 10-28-2023 Telephone encounter Note Patient calling he had seizure disorder when he was in his 20's and had weaned off the medication. He said they could never find out why was having seizures. Patient said yesterday and today he gets a pre seizure aura, smell of ammonia. He has not had a seizure but is under a lot of stress with his job. He took a xanax yesterday and it helped. He said he was going to take another today to calm him down. Patient has his normal appt with PCP on Tuesday10/31/2023. He said has not seen Neurologist for many years was in [place]. Patient asking is there anything more he should be doing? Please advise [facility] 10-18-2023 Telephone encounter Note Called pt per 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 10-18-2023 Miscellaneous Notes Called pt per 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 10-10-2023 History of Present illness Narrative Radiology Service Progress Note PATIENT NAME: Aston Napoles DATE OF SERVICE: October 10, 2023 TIME: 10:35 AM PATIENT IDENTITY VERIFICATION COMPLETED USING TWO (2) IDENTIFIERS: Name and Date of confirmed by patient verbally. FALL SCREENING: Has the patient had 2 falls in the last year or 1 fall with injury or currently using an Ambulatory Assistive Device (Walker, Cane, Wheelchair, Crutches, etc.)? No PATIENT GENDER DATA: Male PATIENT RELEVANT IMPLANT DATA REVIEWED: Yes PATIENT PRESENTS WITH AN IMPLANTABLE OR ATTACHED SEWER PIPE LAYER: No RADIOLOGY DEPARTMENT: General X-ray: Exam(s) Completed: Lower Extremity X-Ray(s): Foot, Left PERIPHERAL IV DATA: Not applicable SIGNED BY: RT Ade(Joni) October 10, 2023 10:35 AM documented in this encounter [facility] 10-10-2023 Note HNO ID: [id number] Author: CHESTER PALOMO RT(R) Service: ? Author Type: Heel Nailing Machine Operator Type: Progress Notes Filed: 10/10/2023 10:45 Note Text: Radiology Service Progress Note PATIENT NAME: Aston Napoles DATE OF SERVICE: October 10, 2023 TIME: 10:35 AM PATIENT IDENTITY VERIFICATION COMPLETED USING TWO (2) IDENTIFIERS: Name and Date of confirmed by patient verbally. FALL SCREENING: Has the patient had 2 falls in the last year or 1 fall with injury or currently using an Ambulatory Assistive Device (Walker, Cane, Wheelchair, Crutches, etc.)? No PATIENT GENDER DATA: Male PATIENT RELEVANT IMPLANT DATA REVIEWED: Yes PATIENT PRESENTS WITH AN IMPLANTABLE OR ATTACHED SEWER PIPE LAYER: No RADIOLOGY DEPARTMENT: General X-ray: Exam(s) Completed: Lower Extremity X-Ray(s): Foot, Left PERIPHERAL IV DATA: Not applicable SIGNED BY: RT Ade(Joni) October 10, 2023 10:35 AM [facility] 10-10-2023 Note HNO ID: [id number] Author: ASTON MCMAHAN, ? Service: ? Author Type: Physician Type: Progress Notes Filed: 10/15/2023 07:29 Note Text: Initial Podiatric Office Visit: Chief Complaint: This 48 year old male who presents with chief complaint:left heel pain HPI Patient presents to clinic for follow-up left heel pain This has been going on since 2019. He has been putting off doing any surgery due to recovery Has tried physical therapy, gel padding, shoe modifications Continues to have pain. Has to wear dress shoes at times for work but limits wearing dress shoes as much as possible because of the pain. 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 Rinse mouth after use. aspirin/acetaminophen/caffeine (EXCEDRIN MIGRAINE ORAL) Take by mouth. DULoxetine (CYMBALTA) 30 mg capsule Take 1 capsule by mouth once daily. albuterol HFA (VENTOLIN HFA) 90 mcg/actuation inhaler Inhale 2 Puffs as instructed every 4 hours as needed for wheezing/shortness of breath. ALPRAZolam (XANAX) 0.25 mg tablet Take 0.25 mg by mouth as needed for anxiety. clotrimazole-betamethasone (LOTRISONE) cream Apply to affected area twice daily as needed. COMPOUNDED PRESCRIPTION Increase CPAP setting to 13 cm H2O pressure. Dx: KEYLA CPAP Initiate CPAP @ 11 cm of water with humidification. Mask (per patient preference) optional chin strap (if indicated) , filters, tubing, humidifier and lifetime supplies. CETIRIZINE HCL (ZYRTEC ORAL) Take 1 tablet by mouth two times a day. naproxen sodium (ALEVE ORAL) Take by mouth. ixekizumab (TALTZ AUTOINJECTOR) 80 mg/mL pen Inject 80 mg subcutaneously one time only. (Patient not taking: Reported on 10/10/2023) No current facility-administered medications for this visit. ALLERGIES Allergen Reactions Compazine [Prochlor* Other: See Comments Jittery feeling PAST SURGICAL HISTORY Procedure Laterality Date APPENDECTOMY 1997 COLONOSCOPY SCREENING N/A 02/17/2023 future colonoscopies need MAC EXCISION PILONIDAL CYST/SINUS SIMPLE INGUINAL HERNIA REPAIR HX Bilateral 1993 1992 and 1993 each side PAST SURGICAL HISTORY OF 08/10/2023 DESTRUCTION OF ANAL CONDYLOMA SKIN BIOPSY HX TONSILLECTOMY HX 1980 FAMILY HISTORY Problem Relation Age of Onset [...] Comment: once a month Drug use: No REVIEW OF SYSTEMS GENERAL: Negative for Malaise, significant weight loss, fever RESPIRATORY: Negative for cough, wheezing and shortness of breath CARDIOVASCULAR: Negative for chest pain, leg swelling and palpitations GI: Negative for abdominal discomfort, blood in stools or black stools and change in bowel habits : Negative for dysuria, frequency and incontinence MUSCULOSKELETAL: Negative for joint pain or swelling, back pain, and muscle pain. SKIN: Negative for lesions, rash, and itching. HEMATOLOGY/LYMPHOLOGY Negative for prolonged bleeding, bruising easily, and swollen nodes. ENDOCRINE: Negative for cold or heat intolerance, polyuria, polydipsia and goiter. NEURO: negative Physical Exam: Constitutional: Pt is a well developed 48 year old male who is alert, oriented and cooperative Eyes: Following during examination. No redness or drainage. Respiratory: RR normal and nonlabored. Even breathing. No evidence of distress or shortness of breath. Psychology: Patient is engaged during conversation. Normal affect and mood. Does not appear depressed or anxious during encounter. Vascular: Dorsalis pedis and posterior tibial pulses palpable as b/l Capillary Fill time < 5 seconds to digits 1-5 b/l Skin temperature warm to warm proximal to distal b/l Hair growth present to digits Neurological: intact light touch/epicritic sensation b/l intact protective sensation no significant neurological deficits Dermatologica (more content not included)... [facility] 10-10-2023 History of Present illness Narrative Initial Podiatric Office Visit: Chief Complaint: This 48 year old male who presents with chief complaint:left heel pain HPI Patient presents to clinic for follow-up left heel pain This has been going on since 2019. He has been putting off doing any surgery due to recovery Has tried physical therapy, gel padding, shoe modifications Continues to have pain. Has to wear dress shoes at times for work but limits wearing dress shoes as much as possible because of the pain. 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 Rinse mouth after use. aspirin/acetaminophen/caffeine (EXCEDRIN MIGRAINE ORAL) Take by mouth. DULoxetine (CYMBALTA) 30 mg capsule Take 1 capsule by mouth once daily. albuterol HFA (VENTOLIN HFA) 90 mcg/actuation inhaler Inhale 2 Puffs as instructed every 4 hours as needed for wheezing/shortness of breath. ALPRAZolam (XANAX) 0.25 mg tablet Take 0.25 mg by mouth as needed for anxiety. clotrimazole-betamethasone (LOTRISONE) cream Apply to affected area twice daily as needed. COMPOUNDED PRESCRIPTION Increase CPAP setting to 13 cm H2O pressure. Dx: KEYLA CPAP Initiate CPAP @ 11 cm of water with humidification. Mask (per patient preference) optional chin strap (if indicated) , filters, tubing, humidifier and lifetime supplies. CETIRIZINE HCL (ZYRTEC ORAL) Take 1 tablet by mouth two times a day. naproxen sodium (ALEVE ORAL) Take by mouth. ixekizumab (TALTZ AUTOINJECTOR) 80 mg/mL pen Inject 80 mg subcutaneously one time only. (Patient not taking: Reported on 10/10/2023) No current facility-administered medications for this visit. ALLERGIES Allergen Reactions Compazine [Prochlor* Other: See Comments Jittery feeling PAST SURGICAL HISTORY Procedure Laterality Date APPENDECTOMY 1997 COLONOSCOPY SCREENING N/A 02/17/2023 future colonoscopies need MAC EXCISION PILONIDAL CYST/SINUS SIMPLE INGUINAL HERNIA REPAIR HX Bilateral 1993 1992 and 1993 each side PAST SURGICAL HISTORY OF 08/10/2023 DESTRUCTION OF ANAL CONDYLOMA SKIN BIOPSY HX TONSILLECTOMY HX 1979 FAMILY HISTORY Problem Relation Age of Onset [...] Comment: once a month Drug use: No REVIEW OF SYSTEMS GENERAL: Negative for Malaise, significant weight loss, fever RESPIRATORY: Negative for cough, wheezing and shortness of breath CARDIOVASCULAR: Negative for chest pain, leg swelling and palpitations GI: Negative for abdominal discomfort, blood in stools or black stools and change in bowel habits : Negative for dysuria, frequency and incontinence MUSCULOSKELETAL: Negative for joint pain or swelling, back pain, and muscle pain. SKIN: Negative for lesions, rash, and itching. HEMATOLOGY/LYMPHOLOGY Negative for prolonged bleeding, bruising easily, and swollen nodes. ENDOCRINE: Negative for cold or heat intolerance, polyuria, polydipsia and goiter. NEURO: negative Physical Exam: Constitutional: Pt is a well developed 48 year old male who is alert, oriented and cooperative Eyes: Following during examination. No redness or drainage. Respiratory: RR normal and nonlabored. Even breathing. No evidence of distress or shortness of breath. Psychology: Patient is engaged during conversation. Normal affect and mood. Does not appear depressed or anxious during encounter. Vascular: Dorsalis pedis and posterior tibial pulses palpable as b/l Capillary Fill time < 5 seconds to digits 1-5 b/l Skin temperature warm to warm proximal to distal b/l Hair growth present to digits Neurological: intact light touch/epicritic sensation b/l intact protective sensation no significant neurological deficits Dermatological: Nails 1-5 b/l appear normal. Webspaces clean and dry 1-4 b/l. Skin appears well hydrated and supple. good color, texture, turgor. No open lesions present. No callosities present. Musculoskeletal/Orthopaedic: Patient has pain to palpation of left posterior heel. Palpable heel spur is noted to left posterior heel Foot type is neutral structurally AJ ROM is full with knee extended and flexed 1st MPJ is full when loaded and no pain or crepitus are noted with ROM. MTJ, STJ are full and free of pain and crepitus. +5/5 muscle strength dorsiflexion, plantarflexion, inversion, eversion b/l Radiographs: 3 views left foot ordered October 10, 2023: I have personally reviewed and interpreted these XR myself: posterior heel spur to left calcaneus ASSESSMENT: (M25.572, G89.29) Chronic pain of left ankle (primary encounter diagnosis) (M77.32) Calcaneal spur of left foot PLAN: 1. History and physical examination performed. 2. XR reviewed with patient and interpreted today 3. Discussed large heel spur of left posterior calcaneus. He has already tried padding, heel lifts, inserts and shoe modifications. Despite conservative care, he continues to have pain on/off. He now may be interested in surgery. We discussed surgery for left posterior heel spur to include spur resection with possible achilles tendon debridement/tendon transfer. I would like to order an mri to evaluate the achilles tendon to determine if any underlying tendon augmentation is required. 4. I will order mri for the reason above 5. Will make referral again to therapy but I do feel this patient will ultimately benefit from spur resection. 6. Will call with results of mri 7. Will make referral to colleague to discuss surgical options. Aston Mcmahan DPM Podiatry [address] [facility] [address] Dept: [phone] Dept AMB ROOMING INTAKE FLOWSHEET DATA Pain Pain Level: 9 Pain Location: Foot-Left Description: Aching, Sharp, Stabbing, Dull Duration Amount of Time: 4 Duration Units: Years Frequency: Continuous Intervention/Comfort measure: Relaxation, Reposition Patient presents with: Left Foot - New, Pain Patient presents for left foot pain. States that he was seen by Dr. Mcmahan in 2019 for this pain and left heel spur. Pain has never improved, has steadily become worse. States he has to compensate when walking up the stairs, pain radiating up leg when he steps down. XR prior to appointment. documented in this encounter [facility] 10-10-2023 Note HNO ID: [id number] Author: YAS CERON RN Service: ? Author Type: Registered Nurse Type: Progress Notes Filed: 10/15/2023 07:29 Note Text: AMB ROOMING INTAKE FLOWSHEET DATA Pain Pain Level: 9 Pain Location: Foot-Left Description: Aching, Sharp, Stabbing, Dull Duration Amount of Time: 4 Duration Units: Years Frequency: Continuous Intervention/Comfort measure: Relaxation, Reposition Patient presents with: Left Foot - New, Pain Patient presents for left foot pain. States that he was seen by Dr. Mcmahan in 2019 for this pain and left heel spur. Pain has never improved, has steadily become worse. States he has to compensate when walking up the stairs, pain radiating up leg when he steps down. XR prior to appointment. [facility] 09-20-2023 Note HNO ID: [id number] Author: JONATHAN NIELSEN MD Service: ? Author Type: Physician Type: Progress Notes Filed: 09/20/2023 08:35 Note Text: Subjective: Patient is status post fulguration of anal warts. Tolerating a diet moving his bowels without difficulty no complaints Assessment:Blood pressure 130/82, pulse 104, temperature 36.1 ?C (97 ?F), weight 100.6 kg (221 lb 12.8 oz), SpO2 97%. Perianal area is clean without signs of infection. Assessment: Aftercare Plan: Like to scope him in 1 year just to make sure that the area is completely healed see him back at that time. [facility] 09-20-2023 History of Present illness Narrative Subjective: Patient is status post fulguration of anal warts. Tolerating a diet moving his bowels without difficulty no complaints Assessment:Blood pressure 130/82, pulse 104, temperature 36.1 C (97 F), weight 100.6 kg (221 lb 12.8 oz), SpO2 97%. Perianal area is clean without signs of infection. Assessment: Aftercare Plan: Like to scope him in 1 year just to make sure that the area is completely healed see him back at that time. documented in this encounter [facility] 09-06-2023 Telephone encounter Note Requested Prescriptions Pending Prescriptions Disp Refills fluticasone (FLONASE) 50 mcg/actuation nasal spray 3 Each 3 Sig: Use 2 Sprays in each nostril once daily. Rinse mouth after use. Date of last office visit in primary care: 07/15/2023 Date of next office visit in primary care: 10/31/2023 Please advise. Thank you. Abhinav Sanchez MA. [facility] 09-06-2023 Miscellaneous Notes Requested Prescriptions Pending Prescriptions Disp Refills fluticasone (FLONASE) 50 mcg/actuation nasal spray 3 Each 3 Sig: Use 2 Sprays in each nostril once daily. Rinse mouth after use. Date of last office visit in primary care: 07/15/2023 Date of next office visit in primary care: 10/31/2023 Please advise. Thank you. Abhinav Sanchez MA. documented in this encounter [facility] 08-10-2023 Note HNO ID: [id number] Author: JEFFERY SONG APRN.TELEVISION JOURNALIST Service: Anesthesiology Author Type: Nurse [employer] Facility Supervisor Type: Anesthesia Procedure Notes Filed: 08/10/2023 13:38 Note Text: ANESTHESIOLOGY PROCEDURE NOTE Airway General Information Procedure Start Time/Medication Administration: 08/10/2023 1:26 PM Procedure End Time: 08/10/2023 1:31 AM Patient location during procedure: OR Timeout Performed Pre-procedure: timeout performed Consent Obtained: Yes Patient identity confirmed: arm band and patient Staffing TELEVISION JOURNALIST: Jeffery Song APRN.TELEVISION JOURNALIST Indications and Patient Condition Indications for airway management: anesthesia Preoxygenated: yes anesthesia circuit Patient position: sniffing Method: asleep Cricoid Pressure: No Manual In-Line Stabilization: No Difficult Mask: No Final Airway Details Final airway type: supraglottic airway Number of attempts at approach: 1 Final Supraglottic Airway: i-gel Size 4 Seal Adequate: yes Failed airway: no Unrecognized esophageal intubation: no Airway not difficult SIGNATURE: Jeffery Song APRN.CRNA PATIENT NAME: Aston Napoles DATE: August 10, 2023 TIME: 1:38 PM CSN: [id number] [facility] 08-04-2023 History and physical note PREANESTHESIA CONSULT CLINIC TELEHEALTH VISIT SERVICE DATE: 08/04/2023 SERVICE TIME: 2:35 PM Patient has been identified by name and date of : Yes Reason for contact: PACC visit Accompanied by: Self This is a virtual visit using Vida[employer] Video Visit. It required patient-provider interaction for the medical decision making as documented below. I have communicated my name and active licensure. The patient's identity and physical location were verified at the time of this visit. Either the patient or their legal sales representative womens health has been informed of the risks and benefits of and alternatives to treatment through a remote evaluation and consents to proceed with the evaluation remotely. PRIMARY CARE PHYSICIAN: Francisco Javier Osorio MD REASON FOR VISIT: Aston Napoles is a 48 year old male who is scheduled for DESTRUCTION OF ANAL CONDYLOMA VIA ELECTRODESICCATION SIMPLE at the request of Dr. Jonathan Nielsen for consultation. My final recommendation will be communicated back to the requesting physician by way of shared medical record or letter. Assessment Patient has the following medical conditions which may affect artie-operative course: KEYLA (obstructive sleep apnea) Assessment: compliant with CPAP Anxiety and depression Assessment: on cymbalta HLD (hyperlipidemia) Assessment: not on medication Jack Activity Status Index: METS: Climb a flight of stairs or walk up a hill (5.50 METs) DASI Score: 5.5 Patient denies any chest pain or undue shortness of breath with the above physical activity. STOP-Bang Score: STOP-Bang Score: 0 (KEYLA on CPAP) [id number] Score: Age: <65 Sex: male CHF history: No Hypertension history: No Stroke/TIA/thromboembolism history: No Vascular disease history: No Diabetes history: No [id number] Score: 0 ANESTHESIA FINDINGS: Intubation History: No history of difficult intubation Significant Anesthesia Considerations: none Airway History: No history of difficult airway I - PHYSICAL EVALUATION AIRWAY Patient intubated: No. Tracheostomy tube not present Mallampati: II. TM distance: >3 FB. Neck ROM: full ROM without neurological symptoms. Short neck: no. Thick neck: no Carvajal present: yes Microretrognathia/Micronagthia/Rec essed Chin: No DENTAL Dental findings: teeth intact. Additional comments: bridge. II - ANESTHESIA PLAN Anesthetic plan additional comments: *PACC/TCI - anesthesia choice. Beta Racheal Monitoring Plan Post Procedure Analgesic Plan Prepared for surgery: This patient is optimally prepared for surgery. CONSULTS: Patient does not require consults for optimization at this time. The Following Tests/Procedures Have Been Initiated: Labs not indicated per PACC protocol, EKG not indicated per PACC protocol Planned Anesthetic: Per anesthesia choice Subjective CHIEF COMPLAINT: anal warts HPI: Aston is a 48 y/o male with anal warts. He underwent colonoscopy on 02/17/23, which revealed a area of granular mucosa. Biopsies revealed H-FRAN. He is scheduled for destruction of anal condyloma via electrodesiccation, on 08/09. 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 02/04/2019 Seasonal allergic rhinitis 02/27/2018 Seizure disorder (HCC) 2001 twice initially, then none on medication for 9 years, weaned off successfully Somnolence, daytime 02/27/2018 PAST SURGICAL HISTORY Procedure Laterality Date APPENDECTOMY 1998 COLONOSCOPY SCREENING N/A 02/17/2023 future colonoscopies need MAC EXCISION PILONIDAL CYST/SINUS SIMPLE INGUINAL HERNIA REPAIR HX Bilateral 1993 1992 and 1993 each side SKIN BIOPSY HX TONSILLECTOMY HX 1979 FAMILY HISTORY Problem Relation Age of Onset Hypertension Mother Heart Attack Father 60 sudden Hypertension Father No Known Problems Sister No Known Problems Brother Colon Cancer Maternal Grandfather 72 Heart disease Paternal Grandmother Heart disease Paternal Grandfather SOCIAL HISTORY: Social History Tobacco Use Smoking status: Never Smokeless tobacco: Never Vaping Use Vaping Use: Never used Substance Use Topics Alcohol use: Yes Comment: once a month Drug use: No Prior to Admission medications as of 4/22/24 1544 Medication Sig Last Dose Taking DULoxetine (CYMBALTA) 30 mg capsule Take 1 capsule by mouth once daily. ixekizumab (TALTZ AUTOINJECTOR) 80 mg/mL pen Inject 80 mg subcutaneously one time only. albuterol HFA (VENTOLIN HFA) 90 mcg/actuation inhaler Inhale 2 Puffs as instructed every 4 hours as needed for wheezing/shortness of breath. benzonatate (TESSALON PERLES) 100 mg capsule Take 1-2 capsules by mouth three times a day as needed. Patient not taking: Reported on 08/01/2023 ALPRAZolam (XANAX) 0.25 mg tablet Take 0.25 mg by mouth as needed for anxiety. dicyclomine (BENTYL) 20 mg tablet ondansetron orally disintegrating (ZOFRAN ODT) 4 mg disintegrating tablet guselkumab (TREMFYA) 100 mg/mL Inject 100 mg subcutaneously once every month. Patient not taking: Reported on 08/01/2023 clotrimazole-betamethasone (LOTRISONE) cream Apply to affected area [...] lifetime supplies. CETIRIZINE HCL (ZYRTEC ORAL) Take 1 tablet by mouth two times a day. No medication comments found. ALLERGIES Allergen Reactions Compazine [Prochlor* Other: See Comments Jittery feeling Covid Immunization Dates Covid-19 Vaccine (Series Information) Completed 01/31/2023 Imm Admin: COVID-19 vaccine, age 12+ yr, 2022- season ([employer]) 01/11/2022 Imm Admin: COVID-19 vaccine, age 12+ yr, bivalent ([employer]) 03/12/2021 Imm Admin: COVID-19 original vaccine, age 12+ yr, monovalent ([employer] - [facility]) 07/31/2020 Imm Admin: COVID-19 original vaccine, full dose, monovalent (MODERNA) 07/03/2020 Imm Admin: COVID-19 original vaccine, full dose, monovalent (MODERNA) Only the first 5 history entries have been loaded, but more history exists. REVIEW OF SYSTEMS: PAIN ASSESSMENT: General: No weight loss, malaise or fevers. Neuro: Negative for headaches, seizures, tremor or stroke Respiratory: Negative for cough, wheezing or shortness of breath. Negative for hemoptysis. +KEYLA Cardiovascular: Negative for chest pain, orthopnea, PND, dizziness, lightheadedness or syncope. Negative for heart murmur. Negative for palpitations or arrhythmia. Negative for h/o DVT/PE. Negative for LE edema +HLD 01/07/20 Echo Impression CONCLUSIONS: - Technically difficult exam due to body habitus. - Exam indication: Chest Pain - The left ventricle is normal in size. There is mild septal left ventricular hypertrophy. Left ventricular systolic function is normal. EF = 62 5% (2D biplane) Normal left ventricular diastolic function. - The right ventricle is normal in size. Right ventricular systolic function is normal. - There are no significant valvular abnormalities. - The visualized aorta is borderline dilated with a maximal dimension of 3.8 cm. - The patient has not had a prior CC echocardiographic exam for comparison. 03/18/17 Stress-negative for ischemia, LVEF 66% GI: Negative for abdominal pain, blood in the stool, black stools or change in bowel habits : No history of UTI in past 6 weeks. No history of renal failure. Not currently on or requiring dialysis. Negative for dysuria, hematuria, urgency, frequency or incontinence Endocrine: Negative for polyuria, polydipsia, heat or cold intolerance. Negative for goiter Hematology: No history of bleeding or clotting disorder. Pt is not taking anti-coagulation or platelet medications. No history of hematological symptoms or problems. Oncology: No history of CA metastasis, chemo within 30 days, or radiotherapy within 90 days. Has not lost 10% of body wt in 6 months. No history of oncological symptoms or problems. Psych: Anxiety, Depression denies SI/HI Musculoskeletal: Negative for joint pain or swelling, back pain or muscle pain. Skin: psoriasis Objective PHYSICAL EXAM: VITALS: There were no vitals taken for this visit. VIDEO EXAM: (if completed, performed via video enabled technology) GENERAL: alert and appropriate, in no distress, well-hydrated, well nourished, and happy, smiling, interactive HEAD: normocephalic, no abnormality or lesion noted EYES: no injection and visual acuity is grossly normal +glasses EARS: hearing grossly normal NOSE: external nose normal without rhinorrhea OROPHARYNX: moist mucus membranes NECK: full ROM, no cervical LNs noted RESPIRATORY: breathing non-labored CHEST: equal chest rise with normal respiratory effort HEART: no clubbing, cyanosis or edema NEUROLOGIC: no obvious deficit Diagnostic tests reviewed for today's visit: Lab Value Units Date High Low HB No results within date range. HCT No results within date range. WBC No results within date range. PLT No results within date range. NA No results within date range. K No results within date range. GLUC No results within date range. BUN No results within date range. CREAT No results within date range. PTSEC No results within date range. INR No results within date range. APTT No results within date range. ALT No results within date range. AST No results within date range. TBILI No results within date range. TSH No results within date range. Lab Value Units Date High Low HCGQT No results within date range. UHCG No results within date range. HCG, BODY* No results within date range. Lab Value Units Date High Low ABORHD No results within date range. ABSCREEN No results within date range. Hemoglobin A1C (%) Date Value 12/16/2022 5.2 Instructions Given to Patient: Instructions located in the after visit summary. Patient given verbal and written preop instructions and voices comprehension and compliance. SIGNATURE: Pham Li PA-C PATIENT NAME: Aston Napoles DATE: 08/04/2023 TIME: 2:[address] [facility] 08-04-2023 History and physical note PREANESTHESIA CONSULT CLINIC TELEHEALTH VISIT SERVICE DATE: 08/04/2023 SERVICE TIME: 2:35 PM Patient has been identified by name and date of : Yes Reason for contact: PACC visit Accompanied by: Self This is a virtual visit using Vidaaoom Video Visit. It required patient-provider interaction for the medical decision making as documented below. I have communicated my name and active licensure. The patient's identity and physical location were verified at the time of this visit. Either the patient or their legal sales representative womens health has been informed of the risks and benefits of and alternatives to treatment through a remote evaluation and consents to proceed with the evaluation remotely. PRIMARY CARE PHYSICIAN: Francisco Javier Osorio MD REASON FOR VISIT: Aston Napoles is a 48 year old male who is scheduled for DESTRUCTION OF ANAL CONDYLOMA VIA ELECTRODESICCATION SIMPLE at the request of Dr. Jonathan Nielsen for consultation. My final recommendation will be communicated back to the requesting physician by way of shared medical record or letter. Assessment Patient has the following medical conditions which may affect artie-operative course: KEYLA (obstructive sleep apnea) Assessment: compliant with CPAP Anxiety and depression Assessment: on cymbalta HLD (hyperlipidemia) Assessment: not on medication Jack Activity Status Index: METS: Climb a flight of stairs or walk up a hill (5.50 METs) DASI Score: 5.5 Patient denies any chest pain or undue shortness of breath with the above physical activity. STOP-Bang Score: STOP-Bang Score: 0 (KEYLA on CPAP) [id number] Score: Age: <65 Sex: male CHF history: No Hypertension history: No Stroke/TIA/thromboembolism history: No Vascular disease history: No Diabetes history: No [id number] Score: 0 ANESTHESIA FINDINGS: Intubation History: No history of difficult intubation Significant Anesthesia Considerations: none Airway History: No history of difficult airway I - PHYSICAL EVALUATION AIRWAY Patient intubated: No. Tracheostomy tube not present Mallampati: II. TM distance: >3 FB. Neck ROM: full ROM without neurological symptoms. Short neck: no. Thick neck: no Carvajal present: yes Microretrognathia/Micronagthia/Rec essed Chin: No DENTAL Dental findings: teeth intact. Additional comments: bridge. II - ANESTHESIA PLAN Anesthetic plan additional comments: *PACC/TCI - anesthesia choice. Beta Racheal Monitoring Plan Post Procedure Analgesic Plan Prepared for surgery: This patient is optimally prepared for surgery. CONSULTS: Patient does not require consults for optimization at this time. The Following Tests/Procedures Have Been Initiated: Labs not indicated per PACC protocol, EKG not indicated per PACC protocol Planned Anesthetic: Per anesthesia choice Subjective CHIEF COMPLAINT: anal warts HPI: Aston is a 48 y/o male with anal warts. He underwent colonoscopy on 02/17/23, which revealed a area of granular mucosa. Biopsies revealed H-FRAN. He is scheduled for destruction of anal condyloma via electrodesiccation, on 08/09. 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 02/04/2019 Seasonal allergic rhinitis 02/27/2018 Seizure disorder (HCC) 2001 twice initially, then none on medication for 9 years, weaned off successfully Somnolence, daytime 02/27/2018 PAST SURGICAL HISTORY Procedure Laterality Date APPENDECTOMY 1997 COLONOSCOPY SCREENING N/A 02/17/2023 future colonoscopies need MAC EXCISION PILONIDAL CYST/SINUS SIMPLE INGUINAL HERNIA REPAIR HX Bilateral 1993 1992 and 1993 each side SKIN BIOPSY HX TONSILLECTOMY HX 1979 FAMILY HISTORY Problem Relation Age of Onset Hypertension Mother Heart Attack Father 60 sudden Hypertension Father No Known Problems Sister No Known Problems Brother Colon Cancer Maternal Grandfather 72 Heart disease Paternal Grandmother Heart disease Paternal Grandfather SOCIAL HISTORY: Social History Tobacco Use Smoking status: Never Smokeless tobacco: Never Vaping Use Vaping Use: Never used Substance Use Topics Alcohol use: Yes Comment: once a month Drug use: No Prior to Admission medications as of 08/01/23 1544 Medication Sig Last Dose Taking DULoxetine (CYMBALTA) 30 mg capsule Take 1 capsule by mouth once daily. ixekizumab (TALTZ AUTOINJECTOR) 80 mg/mL pen Inject 80 mg subcutaneously one time only. albuterol HFA (VENTOLIN HFA) 90 mcg/actuation inhaler Inhale 2 Puffs as instructed every 4 hours as needed for wheezing/shortness of breath. benzonatate (TESSALON PERLES) 100 mg capsule Take 1-2 capsules by mouth three times a day as needed. Patient not taking: Reported on 08/01/2023 ALPRAZolam (XANAX) 0.25 mg tablet Take 0.25 mg by mouth as needed for anxiety. dicyclomine (BENTYL) 20 mg tablet ondansetron orally disintegrating (ZOFRAN ODT) 4 mg disintegrating tablet guselkumab (TREMFYA) 100 mg/mL Inject 100 mg subcutaneously once every month. Patient not taking: Reported on 08/01/2023 clotrimazole-betamethasone (LOTRISONE) cream Apply to affected area [...] lifetime supplies. CETIRIZINE HCL (ZYRTEC ORAL) Take 1 tablet by mouth two times a day. No medication comments found. ALLERGIES Allergen Reactions Compazine [Prochlor* Other: See Comments Jittery feeling Covid Immunization Dates Covid-19 Vaccine (Series Information) Completed 01/31/2023 Imm Admin: COVID-19 vaccine, age 12+ yr, 2022- season ([employer]) 01/11/2022 Imm Admin: COVID-19 vaccine, age 12+ yr, bivalent ([employer]) 03/12/2021 Imm Admin: COVID-19 original vaccine, age 12+ yr, monovalent ([employer]) 07/31/2020 Imm Admin: COVID-19 original vaccine, full dose, monovalent (MODERNA) 07/03/2020 Imm Admin: COVID-19 original vaccine, full dose, monovalent (MODERNA) Only the first 5 history entries have been loaded, but more history exists. REVIEW OF SYSTEMS: PAIN ASSESSMENT: General: No weight loss, malaise or fevers. Neuro: Negative for headaches, seizures, tremor or stroke Respiratory: Negative for cough, wheezing or shortness of breath. Negative for hemoptysis. +KEYLA Cardiovascular: Negative for chest pain, orthopnea, PND, dizziness, lightheadedness or syncope. Negative for heart murmur. Negative for palpitations or arrhythmia. Negative for h/o DVT/PE. Negative for LE edema +HLD 01/07/20 Echo Impression CONCLUSIONS: - Technically difficult exam due to body habitus. - Exam indication: Chest Pain - The left ventricle is normal in size. There is mild septal left ventricular hypertrophy. Left ventricular systolic function is normal. EF = 62 5% (2D biplane) Normal left ventricular diastolic function. - The right ventricle is normal in size. Right ventricular systolic function is normal. - There are no significant valvular abnormalities. - The visualized aorta is borderline dilated with a maximal dimension of 3.8 cm. - The patient has not had a prior CC echocardiographic exam for comparison. 03/18/17 Stress-negative for ischemia, LVEF 66% GI: Negative for abdominal pain, blood in the stool, black stools or change in bowel habits : No history of UTI in past 6 weeks. No history of renal failure. Not currently on or requiring dialysis. Negative for dysuria, hematuria, urgency, frequency or incontinence Endocrine: Negative for polyuria, polydipsia, heat or cold intolerance. Negative for goiter Hematology: No history of bleeding or clotting disorder. Pt is not taking anti-coagulation or platelet medications. No history of hematological symptoms or problems. Oncology: No history of CA metastasis, chemo within 30 days, or radiotherapy within 90 days. Has not lost 10% of body wt in 6 months. No history of oncological symptoms or problems. Psych: Anxiety, Depression denies SI/HI Musculoskeletal: Negative for joint pain or swelling, back pain or muscle pain. Skin: psoriasis Objective PHYSICAL EXAM: VITALS: There were no vitals taken for this visit. VIDEO EXAM: (if completed, performed via video enabled technology) GENERAL: alert and appropriate, in no distress, well-hydrated, well nourished, and happy, smiling, interactive HEAD: normocephalic, no abnormality or lesion noted EYES: no injection and visual acuity is grossly normal +glasses EARS: hearing grossly normal NOSE: external nose normal without rhinorrhea OROPHARYNX: moist mucus membranes NECK: full ROM, no cervical LNs noted RESPIRATORY: breathing non-labored CHEST: equal chest rise with normal respiratory effort HEART: no clubbing, cyanosis or edema NEUROLOGIC: no obvious deficit Diagnostic tests reviewed for today's visit: Lab Value Units Date High Low HB No results within date range. HCT No results within date range. WBC No results within date range. PLT No results within date range. NA No results within date range. K No results within date range. GLUC No results within date range. BUN No results within date range. CREAT No results within date range. PTSEC No results within date range. INR No results within date range. APTT No results within date range. ALT No results within date range. AST No results within date range. TBILI No results within date range. TSH No results within date range. Lab Value Units Date High Low HCGQT No results within date range. UHCG No results within date range. HCG, BODY* No results within date range. Lab Value Units Date High Low ABORHD No results within date range. ABSCREEN No results within date range. Hemoglobin A1C (%) Date Value 12/16/2022 5.2 Instructions Given to Patient: Instructions located in the after visit summary. Patient given verbal and written preop instructions and voices comprehension and compliance. SIGNATURE: Pham Li PA-C PATIENT NAME: Aston Napoles DATE: 08/04/2023 TIME: 2:52 PM documented in this encounter [facility] 08-01-2023 Note HNO ID: [id number] Author: JONATHAN NIELSEN MD Service: ? Author Type: Physician Type: Progress Notes Filed: 08/01/2023 16:15 Note Text: HISTORY AND PHYSICAL Aston Napoles 1975 REFERRING PHYSICIAN: No ref. provider found CHIEF COMPLAINT: Follow Up (F/u colonoscopy 02/17/2023 - schedule surgery) HPI: The patient is a 48 year old male with a complaint of Anal warts (primary encounter diagnosis). Patient is status post a colonoscopy where [...] demonstrates strong and diffuse block staining pattern. 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 ixekizumab (TALTZ AUTOINJECTOR) 80 mg/mL pen Inject 80 mg subcutaneously one time only. albuterol HFA (VENTOLIN HFA) 90 mcg/actuation inhaler Inhale 2 Puffs as instructed every 4 hours as needed for wheezing/shortness of breath. ALPRAZolam (XANAX) 0.25 mg tablet Take 0.25 mg by mouth as needed for anxiety. clotrimazole-betamethasone (LOTRISONE) cream Apply to affected area [...] lifetime supplies. CETIRIZINE HCL (ZYRTEC ORAL) Take 1 tablet by mouth two times a day. benzonatate (TESSALON PERLES) 100 mg capsule Take 1-2 capsules by mouth three times a day as needed. (Patient not taking: Reported on 08/01/2023) dicyclomine (BENTYL) 20 mg tablet (Patient not taking: Reported on 08/01/2023) ondansetron orally disintegrating (ZOFRAN ODT) 4 mg disintegrating tablet (Patient not taking: Reported on 06/07/2023) guselkumab (TREMFYA) 100 mg/mL Inject 100 mg subcutaneously once every month. (Patient not taking: Reported on 08/01/2023) No current facility-administered medications for this visit. [...] Grandmother Heart disease Paternal Grandfather REVIEW OF SYSTEMS: General: The patient denies [...] and NOTES hernias. Kidney/Bladder: The patient denies ki (more content not included)... [facility] 08-01-2023 History of Present illness Narrative HISTORY AND PHYSICAL Aston Napoles 1975 REFERRING PHYSICIAN: No ref. provider found CHIEF COMPLAINT: Follow Up (F/u colonoscopy 02/17/2023 - schedule surgery) HPI: The patient is a 48 year old male with a complaint of Anal warts (primary encounter diagnosis). Patient is status post a colonoscopy where [...] demonstrates strong and diffuse block staining pattern. 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 ixekizumab (TALTZ AUTOINJECTOR) 80 mg/mL pen Inject 80 mg subcutaneously one time only. albuterol HFA (VENTOLIN HFA) 90 mcg/actuation inhaler Inhale 2 Puffs as instructed every 4 hours as needed for wheezing/shortness of breath. ALPRAZolam (XANAX) 0.25 mg tablet Take 0.25 mg by mouth as needed for anxiety. clotrimazole-betamethasone (LOTRISONE) cream Apply to affected area [...] lifetime supplies. CETIRIZINE HCL (ZYRTEC ORAL) Take 1 tablet by mouth two times a day. benzonatate (TESSALON PERLES) 100 mg capsule Take 1-2 capsules by mouth three times a day as needed. (Patient not taking: Reported on 08/01/2023) dicyclomine (BENTYL) 20 mg tablet (Patient not taking: Reported on 08/01/2023) ondansetron orally disintegrating (ZOFRAN ODT) 4 mg disintegrating tablet (Patient not taking: Reported on 06/07/2023) guselkumab (TREMFYA) 100 mg/mL Inject 100 mg subcutaneously once every month. (Patient not taking: Reported on 08/01/2023) No current facility-administered medications for this visit. [...] Grandmother Heart disease Paternal Grandfather REVIEW OF SYSTEMS: General: The patient denies [...] screening? N/A Last Colonoscopy: no prior colonoscopy PHYSICAL EXAMINATION: General: The patient is 48 year old male, well nourished, well hydrated in no acute distress. The patient is oriented to time, place, and person. VITALS: Blood pressure 132/88, pulse 96, temperature 36.3 C (97.3 F), resp. rate 20, height 179.1 cm (5' 10.5 ), weight 98.2 kg (216 lb 9.6 oz), SpO2 97%. HEENT: Normal cephalic, ataumatic, pupils are equally [...] Noted RADIOLOGIC STUDIES: As Noted Assessment IMPRESSION: Anal warts (primary encounter diagnosis) PLAN: Will plan on anal fulguration with argon beam coagulation. The planned surgical procedure was discussed extensively with the patient. The risks, benefits, anticipated outcomes and possible complications were mentioned. My staff has also explained the procedure in understandable terms and the patient was given the option to take printed material concerning the planned procedure. The patient had the opportunity to ask questions concerning the planned procedure. The patient freely consents to the planned procedure. Diagnoses: (A63.0) Anal warts (primary encounter diagnosis) My findings have been communicated to Dr. Francisco Javier Osorio MD via shared medical record. This note will be forwarded to Dr. Francisco Javier Osorio MD. Return to Clinic: The patient is instructed to follow-up with me 1 week post operatively. Anticipated Surgical Procedure/ CPT Code: Destruction of lesion/condyloma - Anus - 58637 Anticipated Anesthetic: General Patient weight: Blood pressure 132/88, pulse 96, temperature 36.3 C (97.3 F), resp. rate 20, height 179.1 cm (5' 10.5 ), weight 98.2 kg (216 lb 9.6 oz), SpO2 97%. BMI: Body mass index is 30.64 kg/m . 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 07-27-2023 Miscellaneous Notes Patient has been identified by name and date of : Yes Patient phones for refill(s): Requested Prescriptions Pending Prescriptions Disp Refills DULoxetine (CYMBALTA) 30 mg capsule 90 capsule 3 Sig: Take 1 capsule by mouth once daily. Date of last office visit in primary care: 07/15/2023 Date of next office visit in primary care: 10/31/2023 Please advise. Thank you. Rebecca Francisco LPN. documented in this encounter [facility] 07-15-2023 Instructions Catarina Roberts APRN.CARINA - 07/15/2023 7:13 AM EDT [facility] [phone] documented in this encounter [facility] 07-15-2023 Note HNO ID: [id number] Author: CATAIRNA ROBERTS APRN.CARINA Service: ? Author Type: Nurse Practitioner Type: Progress Notes Filed: 07/15/2023 08:15 Note Text: CC: Patient presents with: Follow Up HPI Aston Napoles is a 48 year old male who presents today for above. He was treated for cellulitis of the abdominal wall with Keflex on 07/10. Today he reports redness has significantly improved and has not spread beyond marked area. Denies current fever, chills, malaise, body aches, nausea. 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 02/04/2019 Seasonal allergic rhinitis 02/27/2018 Seizure disorder (HCC) 2001 twice initially, then none on medication for 9 years, weaned off successfully Somnolence, daytime 02/27/2018 PAST SURGICAL HISTORY Procedure Laterality Date APPENDECTOMY 1997 COLONOSCOPY SCREENING N/A 02/17/2023 future colonoscopies need MAC EXCISION PILONIDAL CYST/SINUS SIMPLE INGUINAL HERNIA REPAIR HX Bilateral 1993 1992 and 1993 each side SKIN BIOPSY HX TONSILLECTOMY HX 1979 ALLERGIES Compazine [Prochlorperazine Edisylate] MEDICATIONS ixekizumab (TALTZ AUTOINJECTOR) 80 mg/mL pen Inject 80 mg subcutaneously one time only. cephALEXin (KEFLEX) 500 mg capsule Take 1 capsule by mouth four times daily for 5 days. albuterol HFA (VENTOLIN HFA) 90 mcg/actuation inhaler Inhale 2 Puffs as instructed every 4 hours as needed for wheezing/shortness of breath. benzonatate (TESSALON PERLES) 100 mg capsule Take 1-2 capsules by mouth three times a day as needed. ALPRAZolam (XANAX) 0.25 mg tablet Take 0.25 mg by mouth. dicyclomine (BENTYL) 20 mg tablet ondansetron orally disintegrating (ZOFRAN ODT) 4 mg disintegrating tablet (Patient not taking: Reported on 06/07/2023) guselkumab (TREMFYA) 100 mg/mL Inject 100 mg [...] once a month Drug use: No BP 130/86 Temp (!) 35.9 ?C (96.7 ?F) (Temporal) Resp 16 Wt 97.5 kg (215 lb) BMI 30.85 kg/m? Physical Exam Vitals reviewed. Constitutional: Appearance: Normal appearance. Skin: Neurological: Mental Status: He is alert. ASSESSMENT/PLAN: 1. Abdominal wall cellulitis - ICD9: 682.2, ICD10: L03.311 Infection has almost completely resolved. No new or worsening symptoms - Continue treatment with Cephalaxin (Keflex) - No lymphangetic streaking, this was defined for patient to watch for and to seek medical care immediately if appears - follow-up as needed for any persistent or worsening symptoms Prescription instructions reviewed with patient as applicable. Potential red flag symptoms discussed with the patient. Reviewed appropriate action plan to take if red flag symptoms occur. Patient agreeable to treatment plan. Catarina Roberts APRN.[facility] 07-15-2023 History of Present illness Narrative Images from the original note were not included. CC: Patient presents with: Follow Up HPI Aston Napoles is a 48 year old male who presents today for above. He was treated for cellulitis of the abdominal wall with Keflex on 07/10. Today he reports redness has significantly improved and has not spread beyond marked area. Denies current fever, chills, malaise, body aches, nausea. 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 02/04/2019 Seasonal allergic rhinitis 02/27/2018 Seizure disorder (HCC) 2001 twice initially, then none on medication for 9 years, weaned off successfully Somnolence, daytime 02/27/2018 PAST SURGICAL HISTORY Procedure Laterality Date APPENDECTOMY 1997 COLONOSCOPY SCREENING N/A 02/17/2023 future colonoscopies need MAC EXCISION PILONIDAL CYST/SINUS SIMPLE INGUINAL HERNIA REPAIR HX Bilateral 1993 1992 and 1993 each side SKIN BIOPSY HX TONSILLECTOMY HX 1979 ALLERGIES Compazine [Prochlorperazine Edisylate] MEDICATIONS ixekizumab (TALTZ AUTOINJECTOR) 80 mg/mL pen Inject 80 mg subcutaneously one time only. cephALEXin (KEFLEX) 500 mg capsule Take 1 capsule by mouth four times daily for 5 days. albuterol HFA (VENTOLIN HFA) 90 mcg/actuation inhaler Inhale 2 Puffs as instructed every 4 hours as needed for wheezing/shortness of breath. benzonatate (TESSALON PERLES) 100 mg capsule Take 1-2 capsules by mouth three times a day as needed. ALPRAZolam (XANAX) 0.25 mg tablet Take 0.25 mg by mouth. dicyclomine (BENTYL) 20 mg tablet ondansetron orally disintegrating (ZOFRAN ODT) 4 mg disintegrating tablet (Patient not taking: Reported on 06/07/2023) guselkumab (TREMFYA) 100 mg/mL Inject 100 mg [...] once a month Drug use: No BP 130/86 Temp (!) 35.9 C (96.7 F) (Temporal) Resp 16 Wt 97.5 kg (215 lb) BMI 30.85 kg/m Physical Exam Vitals reviewed. Constitutional: Appearance: Normal appearance. Skin: Neurological: Mental Status: He is alert. ASSESSMENT/PLAN: 1. Abdominal wall cellulitis - ICD9: 682.2, ICD10: L03.311 Infection has almost completely resolved. No new or worsening symptoms - Continue treatment with Cephalaxin (Keflex) - No lymphangetic streaking, this was defined for patient to watch for and to seek medical care immediately if appears - follow-up as needed for any persistent or worsening symptoms Prescription instructions reviewed with patient as applicable. Potential red flag symptoms discussed with the patient. Reviewed appropriate action plan to take if red flag symptoms occur. Patient agreeable to treatment plan. Catarina Roberts APRN.CNP documented in this encounter [facility] 07-11-2023 Instructions Catarina Roberts APRN.CNP - 07/11/2023 8:30 AM EDT Let me know in 2-3 days if there is no improvement in redness or sooner if worsening. documented in this encounter [facility] 07-11-2023 Note HNO ID: [id number] Author: CATARINA ROBERTS APRN.CNP Service: ? Author Type: Nurse Practitioner Type: Progress Notes Filed: 07/11/2023 09:20 Note Text: CC: Patient presents with: stomach redness and hot HPI Aston Napoles is a 48 year old male who presents today for above. He noticed a large area of redness with increased warmth on his abdomen this morning. There is some tenderness but denies pain or itching. Does not think he was bitten by anything. No cuts or abrasions that he is aware of. He was recently started on Taltz, first injection was two weeks ago. No injection site reaction noted. He started feeling a little nauseated this morning but denies fever, chills, body aches, malaise. He is due for the next injection tomorrow. 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 02/04/2019 Seasonal allergic rhinitis 02/27/2018 Seizure disorder (HCC) 2001 twice initially, then none on medication for 9 years, weaned off successfully Somnolence, daytime 02/27/2018 PAST SURGICAL HISTORY Procedure Laterality Date APPENDECTOMY 1997 COLONOSCOPY SCREENING N/A 02/17/2023 future colonoscopies need MAC EXCISION PILONIDAL CYST/SINUS SIMPLE INGUINAL HERNIA REPAIR HX Bilateral 1993 1992 and 1993 each side SKIN BIOPSY HX TONSILLECTOMY HX 1979 ALLERGIES Compazine [Prochlorperazine Edisylate] MEDICATIONS ixekizumab (TALTZ AUTOINJECTOR) 80 mg/mL pen Inject 80 mg subcutaneously one time only. albuterol HFA (VENTOLIN HFA) 90 mcg/actuation inhaler Inhale 2 Puffs as instructed every 4 hours as needed for wheezing/shortness of breath. benzonatate (TESSALON PERLES) 100 mg capsule Take 1-2 capsules by mouth three times a day as needed. ALPRAZolam (XANAX) 0.25 mg tablet Take 0.25 mg by mouth. dicyclomine (BENTYL) 20 mg tablet ondansetron orally disintegrating (ZOFRAN ODT) 4 mg disintegrating tablet (Patient not taking: Reported on 06/07/2023) guselkumab (TREMFYA) 100 mg/mL Inject 100 mg [...] once a month Drug use: No BP 128/84 Pulse 96 Temp (!) 35.9 ?C (96.6 ?F) (Temporal) Resp 16 Wt 97.5 kg (215 lb) SpO2 97% BMI 30.85 kg/m? Physical Exam Vitals reviewed. Constitutional: Appearance: He is not ill-appearing. Abdominal: Neurological: Mental Status: He is alert. ASSESSMENT/PLAN: 1. Abdominal wall cellulitis - ICD9: 682.2, ICD10: L03.311 Etiology unclear. Two weeks since last Taltz injection, unlikely to be injection site reaction. Will treat presumptively as cellulitis. - Begin treatment with Cephalaxin (Keflex) x 5 days - No lymphangetic streaking, this was defined for patient to watch for and to seek medical care immediately if appears - Area of cellulitis defined with pen, seek further attention if this area continues to enlarge - Follow up for recheck in three days or sooner if needed Prescription instructions reviewed with patient as applicable. Potential red flag symptoms discussed with the patient. Reviewed appropriate action plan to take if red flag symptoms occur. Patient agreeable to treatment plan. Catarina Roberts APRN.[facility] 07-11-2023 History of Present illness Narrative Images from the original note were not included. CC: Patient presents with: stomach redness and hot HPI Aston Napoles is a 48 year old male who presents today for above. He noticed a large area of redness with increased warmth on his abdomen this morning. There is some tenderness but denies pain or itching. Does not think he was bitten by anything. No cuts or abrasions that he is aware of. He was recently started on Taltz, first injection was two weeks ago. No injection site reaction noted. He started feeling a little nauseated this morning but denies fever, chills, body aches, malaise. He is due for the next injection tomorrow. 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 02/04/2019 Seasonal allergic rhinitis 02/27/2018 Seizure disorder (HCC) 2001 twice initially, then none on medication for 9 years, weaned off successfully Somnolence, daytime 02/27/2018 PAST SURGICAL HISTORY Procedure Laterality Date APPENDECTOMY 1997 COLONOSCOPY SCREENING N/A 02/17/2023 future colonoscopies need MAC EXCISION PILONIDAL CYST/SINUS SIMPLE INGUINAL HERNIA REPAIR HX Bilateral 1993 1992 and 1993 each side SKIN BIOPSY HX TONSILLECTOMY HX 1979 ALLERGIES Compazine [Prochlorperazine Edisylate] MEDICATIONS ixekizumab (TALTZ AUTOINJECTOR) 80 mg/mL pen Inject 80 mg subcutaneously one time only. albuterol HFA (VENTOLIN HFA) 90 mcg/actuation inhaler Inhale 2 Puffs as instructed every 4 hours as needed for wheezing/shortness of breath. benzonatate (TESSALON PERLES) 100 mg capsule Take 1-2 capsules by mouth three times a day as needed. ALPRAZolam (XANAX) 0.25 mg tablet Take 0.25 mg by mouth. dicyclomine (BENTYL) 20 mg tablet ondansetron orally disintegrating (ZOFRAN ODT) 4 mg disintegrating tablet (Patient not taking: Reported on 06/07/2023) guselkumab (TREMFYA) 100 mg/mL Inject 100 mg [...] once a month Drug use: No BP 128/84 Pulse 96 Temp (!) 35.9 C (96.6 F) (Temporal) Resp 16 Wt 97.5 kg (215 lb) SpO2 97% BMI 30.85 kg/m Physical Exam Vitals reviewed. Constitutional: Appearance: He is not ill-appearing. Abdominal: Neurological: Mental Status: He is alert. ASSESSMENT/PLAN: 1. Abdominal wall cellulitis - ICD9: 682.2, ICD10: L03.311 Etiology unclear. Two weeks since last Taltz injection, unlikely to be injection site reaction. Will treat presumptively as cellulitis. - Begin treatment with Cephalaxin (Keflex) x 5 days - No lymphangetic streaking, this was defined for patient to watch for and to seek medical care immediately if appears - Area of cellulitis defined with pen, seek further attention if this area continues to enlarge - Follow up for recheck in three days or sooner if needed Prescription instructions reviewed with patient as applicable. Potential red flag symptoms discussed with the patient. Reviewed appropriate action plan to take if red flag symptoms occur. Patient agreeable to treatment plan. Catarina Roberts APRN.[facility] documented in this encounter [facility] 06-15-2023 History of Present illness Narrative Radiology Service Progress Note PATIENT NAME: Aston Napoles DATE OF SERVICE: June 15, 2023 TIME: 3:07 PM PATIENT IDENTITY VERIFICATION COMPLETED USING TWO (2) IDENTIFIERS: Name and Date of confirmed by patient verbally. FALL SCREENING: Has the patient had 2 falls in the last year or 1 fall with injury or currently using an Ambulatory Assistive Device (Walker, Cane, Wheelchair, Crutches, etc.)? No PATIENT GENDER DATA: Male PATIENT RELEVANT IMPLANT DATA REVIEWED: Yes PATIENT PRESENTS WITH AN IMPLANTABLE OR ATTACHED SEWER PIPE LAYER: No RADIOLOGY DEPARTMENT: General X-ray: Exam(s) Completed: Chest X-Ray PERIPHERAL IV DATA: Not applicable SIGNED BY: RT Elmer(Joni) June 15, 2023 3:07 PM documented in this encounter [facility] 06-15-2023 Note HNO ID: [id number] Author: AVELINA DAMON RT(R) Service: Radiology Author Type: Technologist Type: Progress Notes Filed: 06/15/2023 15:13 Note Text: Radiology Service Progress Note PATIENT NAME: Aston Napoles DATE OF SERVICE: June 15, 2023 TIME: 3:07 PM PATIENT IDENTITY VERIFICATION COMPLETED USING TWO (2) IDENTIFIERS: Name and Date of confirmed by patient verbally. FALL SCREENING: Has the patient had 2 falls in the last year or 1 fall with injury or currently using an Ambulatory Assistive Device (Walker, Cane, Wheelchair, Crutches, etc.)? No PATIENT GENDER DATA: Male PATIENT RELEVANT IMPLANT DATA REVIEWED: Yes PATIENT PRESENTS WITH AN IMPLANTABLE OR ATTACHED SEWER PIPE LAYER: No RADIOLOGY DEPARTMENT: General X-ray: Exam(s) Completed: Chest X-Ray PERIPHERAL IV DATA: Not applicable SIGNED BY: RT Elmer(Joni) June 15, 2023 3:07 PM [facility] 06-13-2023 History of Present illness Narrative SUBJECTIVE Aston Napoles is a 48 year old male . 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 No longer with ear pain or nasal congestion. Still coughing once or twice a day but nearly resolved as well. OBJECTIVE PHYSICAL EXAM: BP 128/86 Pulse 86 Wt 98 kg (216 lb) BMI 30.99 kg/m General appearance: alert, cooperative, pleasant, in no acute distress Head: Normocephalic Eyes: conjunctiva/corneas normal Oropharynx: moist without lesions Neck: supple and Heart: regular rate Lungs: Breathing easily on room air, no cough or wheeze, good air exchange Last 14 Encounter BP Readings: Date: BP: 06/13/2023 128/86 06/07/2023 144/96 05/02/2023 132/80 02/17/2023 135/81 01/31/2023 130/82 12/16/2022 136/82 11/04/2022 128/82 09/02/2022 126/88 05/17/2022 125/80 01/11/2022 112/80 11/06/2021 132/88 10/26/2021 134/76 09/24/2021 126/74 06/25/2021 114/80 ASSESSMENT/PLAN (R03.0) Elevated blood pressure reading in office without diagnosis of hypertension (primary encounter diagnosis) (Z23) Encounter for immunization (H66.003) Acute suppurative otitis media of both ears without spontaneous rupture of tympanic membranes, recurrence not specified (H60.393) Other infective acute otitis externa of both ears (R05.1) Acute cough (J01.10) Acute non-recurrent frontal sinusitis ASSESSMENT/PLAN: 1. Elevated blood pressure reading in office without diagnosis of hypertension - ICD9: 796.2, ICD10: R03.0 (primary diagnosis) Blood pressure within normal limits 2. Encounter for immunization - ICD9: V03.89, ICD10: Z23 Hepatitis a and B gestations today. 3. Acute suppurative otitis media of both ears without spontaneous rupture of tympanic membranes, recurrence not specified - ICD9: 382.00, ICD10: H66.003 4. Other infective acute otitis externa of both ears - ICD9: 380.10, ICD10: H60.393 5. Acute cough - ICD9: 786.2, ICD10: R05.1 6. Acute non-recurrent frontal sinusitis - ICD9: 461.1, ICD10: J01.10 Symptomatically improved, back to baseline except for occasional lingering cough. Edel Perdue APRN.WAREHOUSE ASSOCIATE Medical Decision Making: Problems: Low: Acute, uncomplicated illness or injury Risk: Moderate: Drug management Medical Decision Making Level: 3 - Low documented in this encounter [facility] 06-13-2023 Note HNO ID: [id number] Author: EDEL PERDUE APRN.CNS Service: ? Author Type: Nurse Specialist Type: Progress Notes Filed: 06/16/2023 16:30 Note Text: SUBJECTIVE Aston Napoles is a 48 year old male . 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 No longer with ear pain or nasal congestion. Still coughing once or twice a day but nearly resolved as well. OBJECTIVE PHYSICAL EXAM: BP 128/86 Pulse 86 Wt 98 kg (216 lb) BMI 30.99 kg/m? General appearance: alert, cooperative, pleasant, in no acute distress Head: Normocephalic Eyes: conjunctiva/corneas normal Oropharynx: moist without lesions Neck: supple and Heart: regular rate Lungs: Breathing easily on room air, no cough or wheeze, good air exchange Last 14 Encounter BP Readings: Date: BP: 06/13/2023 128/86 06/07/2023 144/96 05/02/2023 132/80 02/17/2023 135/81 01/31/2023 130/82 12/16/2022 136/82 11/04/2022 128/82 09/02/2022 126/88 05/17/2022 125/80 01/11/2022 112/80 11/06/2021 132/88 10/26/2021 134/76 09/24/2021 126/74 06/25/2021 114/80 ASSESSMENT/PLAN (R03.0) Elevated blood pressure reading in office without diagnosis of hypertension (primary encounter diagnosis) (Z23) Encounter for immunization (H66.003) Acute suppurative otitis media of both ears without spontaneous rupture of tympanic membranes, recurrence not specified (H60.393) Other infective acute otitis externa of both ears (R05.1) Acute cough (J01.10) Acute non-recurrent frontal sinusitis ASSESSMENT/PLAN: 1. Elevated blood pressure reading in office without diagnosis of hypertension - ICD9: 796.2, ICD10: R03.0 (primary diagnosis) Blood pressure within normal limits 2. Encounter for immunization - ICD9: V03.89, ICD10: Z23 Hepatitis A and B vaccinations today. 3. Acute suppurative otitis media of both ears without spontaneous rupture of tympanic membranes, recurrence not specified - ICD9: 382.00, ICD10: H66.003 4. Other infective acute otitis externa of both ears - ICD9: 380.10, ICD10: H60.393 5. Acute cough - ICD9: 786.2, ICD10: R05.1 6. Acute non-recurrent frontal sinusitis - ICD9: 461.1, ICD10: J01.10 Symptomatically improved, back to baseline except for occasional lingering cough. CXR without concerning findings. Edel Perdue APRN.WAREHOUSE ASSOCIATE Medical Decision Making: Problems: Low: Acute, uncomplicated illness or injury Risk: Moderate: Drug management Medical Decision Making Level: 3 - Low [facility] 06-07-2023 Note HNO ID: [id number] Author: EDEL PERDUE APRN.WAREHOUSE ASSOCIATE Service: ? Author Type: Nurse Specialist Type: Progress Notes Filed: 06/07/2023 07:40 Note Text: SUBJECTIVE Aston Napoles is a 48 year old male who presents with several days of symptoms that are improving. He was on a cruise when he developed otitis externa treated with betamethasone and neomycin drops for both ears. He subsequently developed acute sinusitis treated with Augmentin and prednisolone x 5 days. Today notes feeling improved but not yet back to baseline. Continues with frontal sinus pain, postnasal drip, bilateral ear pain left greater than right, decreased hearing in the left, and productive cough. Initially had fever but not currently. Notes some shortness of breath on exertion. Some fatigue is present. No sore throat. No nausea vomiting or diarrhea. He reports enjoying swimming and has had recurrent otitis in the past. No prior ENT visit. OTC meds/remedies that patient has tried: OTC cold medicine and throat lozenges. OBJECTIVE PHYSICAL EXAM: BP 144/96 Pulse 87 Resp 16 Wt 98.4 kg (217 lb) SpO2 97% BMI 31.14 kg/m? General appearance: alert, cooperative, pleasant, in no acute distress Head: Normocephalic Eyes: conjunctiva/corneas normal Ears: R TM - nl light reflex, erythematous streaking, mild erythema canal, L TM - dull, nl light reflex, erythematous streaking, effusion present, external canal with erythema and material present Nose: purulent rhinorrhea, sinus tenderness over frontal sinuses bilateral Oropharynx: moist without lesions Neck: supple and small, benign anterior cervical nodes bilaterally Heart: regular rate and rhythm, without murmur Lungs: clear to auscultation, without rales or wheeze, good air exchange ASSESSMENT/PLAN (H60.393) Other infective acute otitis externa of both ears (primary encounter diagnosis) (H66.003) Acute suppurative otitis media of both ears without spontaneous rupture of tympanic membranes, recurrence not specified (R05.1) Acute cough (J01.10) Acute non-recurrent frontal sinusitis ASSESSMENT/PLAN: 1. Other infective acute otitis externa of both ears - ICD9: 380.10, ICD10: H60.393 (primary diagnosis) - XR CHEST 2V FRONTAL/LAT - AMOXICILLIN 875 MG-POTASSIUM CLAVULANATE 125 MG TABLET - CONSULT TO ENT 2. Acute suppurative otitis media of both ears without spontaneous rupture of tympanic membranes, recurrence not specified - ICD9: 382.00, ICD10: H66.003 - XR CHEST 2V FRONTAL/LAT - AMOXICILLIN 875 MG-POTASSIUM CLAVULANATE 125 MG TABLET - CONSULT TO ENT 3. Acute cough - ICD9: 786.2, ICD10: R05.1 4. Acute non-recurrent frontal sinusitis - ICD9: 461.1, ICD10: J01.10 - XR CHEST 2V FRONTAL/LAT - AMOXICILLIN 875 MG-POTASSIUM CLAVULANATE 125 MG TABLET - CONSULT TO ENT Otitis externa not yet resolved left ear appearing worse than right, continue with drops x 5 days. Purulent nasal drainage, extend Augmentin 5 days for total of 10 days. Lungs are clear however if shortness of breath on exertion continues despite resolution of other symptoms recommend chest x-ray. He has benzonatate for cough so we will use these in addition to DayQuil. If symptoms of ear pain and decreased hearing does not resolve recommend an ENT visit for further evaluation and treatment. Endorse using swimmer's ear during the summer months when swimming to help avoid swimmer's ear/otitis externa. Recheck BP in 1-4 weeks. Edel Perdue APRN.WAREHOUSE ASSOCIATE Medical Decision Making: Problems: Low: Acute, uncomplicated illness or injury Data: Unique test(s) ordered: 1 Risk: Moderate: Drug management Medical Decision Making Level: 3 - Low [facility] 05-02-2023 Note HNO ID: [id number] Author: FRANCISCO JAVIER OSORIO MD Service: ? Author Type: Physician Type: Progress Notes Filed: 05/02/2023 18:33 Note Text: This note was created using NoteWriter. Subjective Aston Napoles is a 48 year old male. Abdominal pain and rectal bleeding resolved. Colonoscopy was done and surgical follow up was ongoing for warts. Breast discomfort was better with imaging studies negative for mass. Review of Systems Constitutional: Negative. Gastrointestinal: Negative. Genitourinary: Negative. 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 Objective BP 132/80 (BP Site: Left Arm, BP Position: Sitting, BP Cuff Size: Large Adult) Pulse 80 Temp 36.6 ?C (97.9 ?F) (Temporal) Resp 16 Wt 95.3 kg (210 lb) BMI 30.13 kg/m? Physical Exam Constitutional: Appearance: Normal appearance. Assessment and Plan 1. Abdominal pain, left lower quadrant - ICD9: 789.04, ICD10: R10.32 (primary diagnosis) Resolved. 2. Subareolar mass of left breast - ICD9: 611.72, ICD10: N63.42 Resolved. 3. Need for vaccination - ICD9: V05.9, ICD10: Z23 - HEP A-HEP B VACCINE ([place]) - HEP A-HEP B VACCINE ([place]) - HEP A-HEP B VACCINE ([place]) Francisco Javier Osorio MD [facility] 02-25-2023 Note HNO ID: [id number] Author: Jonathan Nielsen MD Service: ? Author Type: Physician Type: [...] I will be using the argon beam environmental quality analyst. I also told him that if there are any warts on the outside that I see then I am going to fulgurate them as well. I spent 10 minutes talking to him and his partner. [facility] 02-25-2023 History of Present illness Narrative Subjective: [...] I will be using the argon beam environmental quality analyst. I also told him that if there are any warts on the outside that I see then I am going to fulgurate them as well. I spent 10 minutes talking to him and his partner. documented in this encounter [facility] 02-23-2023 History of Present illness Narrative [...] 2023 4:22 PM documented in this encounter [facility] 02-23-2023 Note HNO ID: [id number] Author: Monica Godoy RDMS Service: ? Author Type: Surface Hydrologist Type: Progress Notes Filed: 02/23/2023 4:22 PM [...] RDMS RVT February 23, 2023 4:22 PM [facility] 02-23-2023 History of Present illness Narrative [...] 2023 3:14 PM documented in this encounter [facility] 02-23-2023 Note HNO ID: [id number] Author: Ham Miller Mammo Tech Service: ? [...] Bertrand Cummings February 23, 2023 3:14 PM [facility] 02-17-2023 History of Past i llness Narrative Problem Noted Date Diagnosed Date Resolved Date Abdominal pain, left lower quadrant 02/17/2023 05/02/2023 Rectal bleeding 02/17/2023 05/02/2023 Somnolence, daytime 02/27/2018 09/29/19 19 Elevated blood pressure reading 02/27/2018 09/28/2018 documented as of this encounter (statuses as of 06/13/2023) [facility] History of Past illness Narrative* Problem Noted Date Diagnosed Date Resolved Date Abdominal pain, left lower quadrant 02/17/2023 05/02/2023 Rectal bleeding 02/17/2023 05/02/2023 Somnolence, daytime 02/27/2018 09/29/19 19 Elevated blood pressure reading 02/27/2018 09/28/2018 documented as of this encounter (statuses as of 06/16/2023) [facility] History of Past illness Narrative* Problem Noted Date Diagnosed Date Resolved Date Abdominal pain, left lower quadrant 02/17/2023 05/02/2023 Rectal bleeding 02/17/2023 05/02/2023 Somnolence, daytime 02/27/2018 09/29/19 19 Elevated blood pressure reading 02/27/2018 09/28/2018 documented as of this encounter (statuses as of 06/16/2023) [facility] History of Past illness Narrative* Problem Noted Date Diagnosed Date Resolved Date Abdominal pain, left lower quadrant 02/17/2023 05/02/2023 Rectal bleeding 02/17/2023 05/02/2023 Somnolence, daytime 02/27/2018 09/29/19 19 Elevated blood pressure reading 02/27/2018 09/28/2018 documented as of this encounter (statuses as of 07/11/2023) [facility]11-09-2023 History of Past illness Narrative* Problem Noted Date Diagnosed Date Resolved Date Abdominal pain, left lower quadrant 02/17/2023 05/02/2023 Rectal bleeding 02/17/2023 05/02/2023 Somnolence, daytime 02/27/2018 09/29/19 19 Elevated blood pressure reading 02/27/2018 09/28/2018 documented as of this encounter (statuses as of 07/15/2023) [facility]11-09-2023 History of Past illness Narrative* Problem Noted Date Diagnosed Date Resolved Date Abdominal pain, left lower quadrant 02/17/2023 05/02/2023 Rectal bleeding 02/17/2023 05/02/2023 Somnolence, daytime 02/27/2018 09/29/19 19 Elevated blood pressure reading 02/27/2018 09/28/2018 documented as of this encounter (statuses as of 07/28/2023) [facility]11-09-2023 History and physical note* Jonathan Nielsen MD - 02/17/2023 1:00 PM EST Images from the original note were not included. HISTORY AND PHYSICAL Aston Farrar Dony 1975 REFERRING PHYSICIAN: Francisco Javier Osorio MD CHIEF COMPLAINT: Consult (LLQ abdominal pain/ [...] at the request of Dr. Francisco Javier Osorio MD for my opinion and advice regarding [...] 2 Puffs as instructed every 4 hours asneeded for wheezing/shortness of breath. fluticasone (FLONASE) 50 [...] entered by the nurse and reviewed by ma Nursing Notes: Reyna Worthington LPN 02/01/2023 3:58 [...] back pain/injury, denies back problems, denies sciatica, deniesknee/foot trouble, denies arthritis, or denies gout. When [...] are equally round, sclera are anicteric, mucous membranesare moist, oropharynx is clear. Neck has no [...] findings have been communicated to Dr. Francisco Javeir Osorio MD via shared medical record. This note will be forwarded to Dr. Francisco Javier Osorio MD. Return to Clinic: The patient is instructed to follow-up with me 1 week post operatively. Jonathan Nielsen III, MD UPDATED HISTORY AND PHYSICAL EXAMINATION SERVICE DATE: 02/17/2023 SERVICE TIME: 8:34 AM PHYSICAL EXAM MUST BE COMPLETED ON ADMISSION The History and Physical (completed in the past 30 days) has been reviewed and the patient has beenexamined. The contents accurately reflect the patient's condition with the following additions or revisions since the H&P was completed. Examination indicates no changes. This H&P can be found in the attached. SIGNATURE: Jonathan Nielsen III, MD PATIENT NAME: Aston Napoles DATE: February 17, 2023 TIME: 8:34 AM [facility] Nurse Note* Nicole Pendleton RN - 02/17/2023 9:09 AM EST Arrived in phase II via cart. Left lateral position. Sedated, but responds to verbal stimuli. Colornormal; skin warm and dry. Respirations wnl and unlabored. Abdomen soft and with + bowel sounds in quads X 4. Patient resting comfortably. Dr. Nielsen at bedside to review procedure and recommendations. Nicole Pendleton RN documented [facility]23 Miscellaneous Notes* Telephone Encounter - Rachana Carter RN - 02/17/2023 6:07 AM EST Patient calling back. States that he did not receive a call back from the construction technician provider, is still nauseated and that his headache is persistent. Asking if he can take Tylenol for headache and if he can take something for nausea prior to his scheduled 11 AM procedure. No worsening symptoms from earlier call. Conferenced patient to Surgery [facility]ering [facility] to speak with construction technician provider. documented [facility]23 Miscellaneous Notes* Telephone Encounter - Rachana Carter RN - 02/17/2023 12:42 AM EST Patient calling with worsening nausea since completing his colonoscopy prep around 5-6 PM last evening. Denies vomiting, but states nausea is progressively getting worse. Wants to know if he can takeondansetron he has prescribed. Conferenced patient to [facility] collar folder operator, to speak with Gastroenterology provider construction technician. Advised patient he can come to ED for any new or worsening symptoms. documented in [facility]23 NoteHNO ID: [id number] Author: Jonathan Nielsen MD Service: ? Author Type: Physician Type: Progress Notes Filed: 02/07/2023 12:49 PM Note Text: HISTORY AND PHYSICAL Aston Napoles 1975 REFERRING PHYSICIAN: Francisco Javier Osorio MD CHIEF COMPLAINT: Consult (LLQ abdominal pain/ [...] at the request of Dr. Francisco Javier Osorio MD for my opinion and advice regarding [...] history of skin rash. (more content not included)...[facility]10-30-2023 History of Present illness Narrative* Jonathan Nielsen MD - 02/07/2023 12:45 PM EDT HISTORY AND PHYSICAL Aston Napoles 1975 REFERRING PHYSICIAN: Francisco Javier Osorio MD CHIEF COMPLAINT: Consult (LLQ abdominal pain/ [...] at the request of Dr. Francisco Javier Osorio MD for my opinion and advice regarding [...] 2 Puffs as instructed every 4 hours asneeded for wheezing/shortness of breath. fluticasone (FLONASE) 50 [...] entered by the nurse and reviewed by ma Nursing Notes: Reyna Worthington LPN 02/01/2023 3:58 [...] back pain/injury, denies back problems, denies sciatica, deniesknee/foot trouble, denies arthritis, or denies gout. When was patient's last Mammogram screening? N/A Last Colonoscopy: no prior colonoscopy Reyna Worhtington LPN PHYSICAL EXAMINATION: General: The patient is 47 year old male, well nourished, well hydrated in no acute distress. The patient is oriented to time, place, and person. VITALS: There were no vitals taken for this visit. There is no height or weight on file to calculate BMI. HEENT: Normal cephalic, ataumatic, pupils are equally round, sclera are anicteric, mucous membranesare moist, oropharynx is clear. Neck has no [...] have been communicated to Dr. Francisco Javier Osorio MD via shared medical record. This note will be forwarded to Dr. Francisco Javier Osorio MD. Return to Clinic: The patient is instructed to follow-up with me 1 week post operatively. Jonathan Nielsen III, MD documented in [facility]23 Instructions* Patient Instructions* Jonathan Nielsen MD - 02/01/2023 3:56 PM EDT Images from the original note were not included. Bowel Preparation Instructions for: Golytely, Nulytely, Trilyte or Colyte (polyethylene glycol 3350and electrolytes) IF YOU DO NOT FOLLOW THESE DIRECTIONS, YOUR COLONOSCOPY WILL BE CANCELLED. [place] Instructions: Your bowel must be empty so [...] If you do not have a responsible motorcoach driver (family member or friend) with you to take you home, your exam cannot be done with sedation and will be cancelled. Please bring a list of all of your current medications, including any Over-the Counter medications with you. Medications If you take insulin, diabetic medications or blood thinners such as Coumadin (warfarin), Plavix (clopidogrel), Ticlid (ticlopidine hydrochloride), Agrylin (anagrelide), Xarelto (Rivaroxaban), Pradaxa(Dabigatran), Eliquis (Apixaban), and Effient (Prasugrel). You MUST [...] Golytely, Nulytely, Trilyte or Colyte (polyethylene glycol 3350and electrolytes) Three (3) Days Before Your Colonoscopy [...] your exam. 2 03/[address] [facility] Nurse Note* Reyna Worthington LPN - 02/01/2023 3:53 PM EDT REVIEW OF SYSTEMS: General: The patient denies [...] back pain/injury, denies back problems, denies sciatica, deniesknee/foot trouble, denies arthritis, or denies gout. When was patient's last Mammogram screening? N/A Last Colonoscopy: no prior colonoscopy Reyna Worthington LPN documented in this [facility]10-[facility]-2023 NoteHNO ID: [id number] Author: Francisco Javier Osorio MD Service: ? Author Type: Physician Type: Progress Notes Filed: 02/01/2023 12:42 AM Note Text: This note was created using [employer]. Subjective Patient presents with: ER F/U Aston Napoles is a 47 year old male here with his significant other for above. He developed left sided abdominal pain over the weekend, with bright red rectal bleeding that discolored the toilet water. Symptoms worsened prompting the ER visit Jan. . His labs and urinalysis were normal. [...] results, further tests will be recommended. - [facility] LEFT - US BREAST LTD LEFT 4. Need for COVID-19 vaccine - ICD9: V04.89, ICD10: Z23 - [employer] COVID-19 VACCINE ( SEASON) AGE 12+ YR Francisco Javier Osorio, [facility]10-24-2023 History of Present illness Narrative* Francisco Javier Osorio MD - 02/01/2023 12:24 AM EDT This note was created using NoteWriter. Subjective [...] 2 Puffs as instructed every 4 hours asneeded for wheezing/shortness of breath. fluticasone (FLONASE) 50 [...] results, further tests will be recommended. - [facility] LEFT - US BREAST LTD LEFT 4. Need for COVID-19 vaccine - ICD9: V04.89, ICD10: Z23 - [employer] COVID-19 VACCINE (2022- SEASON) AGE 12+ YR Francisco Javier Osorio MD documented in this encounterMount [facility]09-07-2023 Miscellaneous Notes* Addendum Note - Catarina Richards APRN.CNP - 12/16/2022 8:41 AM EDTAddended by: CATARINA RICHARDS on: 12/16/2022 08:41 AM Modules accepted: Orders documented in this encounterMount [facility]. [facility]09-07-2023 History of Present illness Narrative* Catarina Richards APRN.CNP - 12/16/2022 8:05 AM EDT CC: Patient presents with: Ear Infection: Left ear infection on 11/18 at [facility] was given Amoxicillin - now feels that it is possibly in both - dx with COVID same day. HPI Aston Napoles is a 47 year old male who presents today for above. He was treated with Augmentinon 11/18 for left otitis media. 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 Reports widespread joint pain, his skip pit worker had mentioned possible psoriatic arthritis. Patient denies [...] 2 Puffs as instructed every 4 hours asneeded for wheezing/shortness of breath. fluticasone (FLONASE) 50 [...] middle ear effusion is present. Tympanic membrane iserythematous and retracted. ASSESSMENT/PLAN: 1. Otitis media, recurrent, [...] occur. Patient agreeable to treatment plan. Catarina Richards APRN.CNP documented in this encounterMount [facility]07-27-2023 Instructions* Patient Instructions* Edel Perdue APRN.CNS - 11/04/2022 7:27 AM EDT [...] a.m. if not improving. documented in this [facility]Mount [facility]07-[facility]-2023 History of Present illness Narrative* Edel Perdue APRN.CNS - 11/04/2022 7:08 AM EDT SUBJECTIVE: HEPATITIS B(1 of 3 - 3-dose [...] 2 Puffs as instructed every 4 hours asneeded for wheezing/shortness of breath. fluticasone (FLONASE) 50 [...] recheck next Tuesday, may cancel if improved/resolved. Edel Perdue APRN.WAREHOUSE ASSOCIATE Medical Decision Making: Problems: Low: Acute, uncomplicated illness or injury Risk: Moderate: Drug management Medical Decision Making Level: 3 - Low documented in [facility]04-12-2023 Miscellaneous Notes* Telephone Encounter - Abhinav Sanchez Ma - 07/21/2022 10:54 AM EDT TANVIR: 03/11/2022 Last refill: 06/25/2021 QTY: 90 Refills: 3 Patient's request for medication is as follows: Requested Prescriptions Pending Prescriptions Disp Refills DULoxetine (CYMBALTA) 30 mg capsule 90 capsule 3 Sig: Take 1 capsule by mouth once daily. Please approve the above prescription(s) to electronically send to pharmacy. Abhinav Sanchez Ma * Telephone Encounter - Milvia Lassiter Pss - 07/21/2022 9:51 AM EDT Patient has been identified by name and date of : Yes Requested Prescriptions Pending Prescriptions Disp Refills DULoxetine (CYMBALTA) 30 mg capsule 90 capsule 3 Sig: Take 1 capsule by mouth once daily. RX INSTRUCTIONS: Patient aware RX will be sent to pharmacy. No need to notify patient. Milvia Lassiter Pss documented in this encounterMount [facility]02-14-2023 Miscellaneous Notes* Telephone Encounter - Rebecca Francisco LPN - 05/25/2022 3:19 PM EST Patient notified of below recommendations, verbalized understanding. Rebecca Francisco LPN * Telephone Encounter - Catarina Richards APRN.CNP - 05/25/2022 3:13 PM EST Okay to take Tessalon Perles. Also recommend using albuterol inhaler for the coughing spells. Follow-up in one week if no improvement in cough or sooner if any worsening Catarina Richards APRN.CARINA * Telephone Encounter - Cynthia Hdez LPN - 05/25/2022 3:03 PM EST Pt was seen 05/17/22 and was given [...] spray. Cynthia Hdez LPN documented in this encounterMount [facility]02-06-2023 History of Present illness Narrative* Catarina Older, TEST RACK OPERATOR.SENIOR CONTRACT SPECIALIST - 05/17/2022 1:38 PM EST CC: Patient presents with: c/o sinus infection [...] occur. Patient agreeable to treatment plan. Catarina Richards APRN.CNP documented in this encounterMount [facility]. [facility]01-05-2023 Miscellaneous Notes* Telephone Encounter - Anuradha De La Rosa - 04/15/2022 11:41 AM EST Patient has been identified by name and [...] Anuradha De La Rosa documented in this encounterMount [facility]12-01-2022 Instructions* Patient Instructions* Pamela Richards APRN.CNP - 03/11/2022 2:47 PM EST FACT SHEET FOR PATIENTS, PARENTS, AND CAREGIVERS EMERGENCY USE AUTHORIZATION (EUA) OF PAXLOVID FOR CORONAVIRUS DISEASE 2019 (COVID-19) You are being given this Fact Sheet because your healthcare provider believes it is necessary to provide you with PAXLOVID for the treatment of dbrj-mw-drmktlxk coronavirus disease (COVID-19) caused by the SARS-CoV-2 virus. This Fact Sheet contains information to help you understand the risks and benefits of taking the PAXLOVID you have received or may receive. The U.S. Food and Drug Administration (FDA) has issued an Emergency Use Authorization (EUA) to makePAXLOVID available during the COVID-19 pandemic (for more details about an EUA please see What is an Emergency Use Authorization? at the end of this document). PAXLOVID is not an FDA-approved medicine in the [place]. Read this Fact Sheet for information about PAXLOVID. Talk to your healthcareprovider about your options or if you have any questions. It is your choice to take PAXLOVID. What is COVID-19? COVID-19 is caused by a virus called a coronavirus. You can get COVID-19 through close contact withanother person who has the virus. COVID-19 illnesses have ranged from very wdjg-ef-mgyeyu, including illness resulting in . While information so far suggests that most COVID-19 illness is mild, serious illness can happen and maycause some of your other medical conditions to become worse. Older people and people of all ages with severe, long lasting (chronic) medical conditions like heart disease, lung disease, and diabetes,for example seem to be at higher risk of being hospitalized for COVID-19. What is PAXLOVID? PAXLOVID is an investigational medicine used to treat vfpj-by-mwdrdmoz COVID-19 in adults and children [12 years [...] of using PAXLOVID to treat people with gokf-gx-ajadxjtg COVID-19. The FDA has authorized the emergency use of PAXLOVID for the treatment of etsq-up-ngmeepho COVID-19in adults and children [12 years of age [...] the medicines you take, including prescription and jfyt-voy-ryvfmkg medicines, vitamins, and herbal supplements. Some medicines [...] you have any questions about contraceptive methods thatmight be right for you. How do I [...] missed dose and take the next dose atyour regular time. Do not take 2 doses [...] (remdesivir) is FDA-approved for the treatment of wkqv-xh-vdhfjqrg COVID-19 in certain adults and children. Talk with your doctor to see if Veklury is appropriate for you. Like PAXLOVID, FDA may also allow for the emergency use of other medicines to treat people with COVID-19. Go to https://www.fda.gov/pjzsridan-mffubybulovv-dqzocpkpwqt/iha-dpykc-yqpidsjaer-and- policy-framework/nheylmhtk-pca-tyjobnqrkqlxt for information on the emergency use of other medicines that are authorized by FDA to treat people with COVID-19. Your healthcare provider may talk with you aboutclinical trials for which you may be eligible. It is your choice to be treated or not to be treated with PAXLOVID. Should you decide not to receive it or for your child not to receive it, it will not change your standard medical care. What if I am or ? There is monotyper treating women or mothers with PAXLOVID. For a motherand unborn baby, the benefit of taking PAXLOVID may be greater than the risk from the treatment. Ifyou are , discuss your options and specific situation with your healthcare provider. It is recommended that you use effective barrier contraception or do not have sexual activity whiletaking PAXLOVID. If you are , discuss your options and specific situation with your healthcare provider. How do I report side effects with PAXLOVID? Contact your healthcare provider if you have any side effects that bother you or do not go away. Report side effects to FDA MedWatch at www.fda.gov/medwatch or call 7-086-FGV6274 or you can reportside effects to [employer]. at the contact information provided below. Website Fax number Telephone number [employer] How should I store PAXLOVID? Store PAXLOVID [...] (EUA). The EUA is supported by a [place] of Health and Human Service (HHS) declaration that circumstances exist to justify the emergency use of drugs and biological productsduring the COVID-19 pandemic. PAXLOVID for the treatment of pkyl-lt-kyvgcjph COVID-19 in adults and children [12 years of age andolder weighing at least 88 pounds (40 kg)] [...] telephone number provided below. Website Telephone number www.[employer] (9-471-C13-PACK) You can also go to www.[employer] or call for more information. [employer] Distributed by [employer] [place] [address] LAB-1494-2.1 Revised: 26 June 2021 FACT SHEET FOR PATIENTS, PARENTS, AND CAREGIVERS EMERGENCY USE AUTHORIZATION (EUA) OF PAXLOVID FOR CORONAVIRUS DISEASE 2019 (COVID-19) You are being given this Fact Sheet because your healthcare provider believes it is necessary to provide you with PAXLOVID for the treatment of zmpw-gt-kxdjoocp coronavirus disease (COVID-19) caused by the SARS-CoV-2 virus. This Fact Sheet contains information to help you understand the risks and benefits of taking the PAXLOVID you have received or may receive. The U.S. Food and Drug Administration (FDA) has issued an Emergency Use Authorization (EUA) to makePAXLOVID available during the COVID-19 pandemic (for more details about an EUA please see What is an Emergency Use Authorization? at the end of this document). PAXLOVID is not an FDA-approved medicine in the [place]. Read this Fact Sheet for information about PAXLOVID. Talk to your healthcareprovider about your options or if you have any questions. It is your choice to take PAXLOVID. What is COVID-19? COVID-19 is caused by a virus called a coronavirus. You can get COVID-19 through close contact withanother person who has the virus. COVID-19 illnesses have ranged from very zllm-ny-fkkgew, including illness resulting in . While information so far suggests that most COVID-19 illness is mild, serious illness can happen and maycause some of your other medical conditions to become worse. Older people and people of all ages with severe, long lasting (chronic) medical conditions like heart disease, lung disease, and diabetes,for example seem to be at higher risk of being hospitalized for COVID-19. What is PAXLOVID? PAXLOVID is an investigational medicine used to treat gxck-pw-gtzqmapi COVID-19 in adults and children [12 years [...] of using PAXLOVID to treat people with ejlh-wk-txlxuddy COVID-19. The FDA has authorized the emergency use of PAXLOVID for the treatment of whds-je-iphssocp COVID-19in adults and children [12 years of age [...] the medicines you take, including prescription and ouhs-gjd-rliusuv medicines, vitamins, and herbal supplements. Some medicines [...] you have any questions about contraceptive methods thatmight be right for you. How do I [...] missed dose and take the next dose atyour regular time. Do not take 2 doses [...] (remdesivir) is FDA-approved for the treatment of hxlp-ix-gpahubmr COVID-19 in certain adults and children. Talk with your doctor to see if Veklury is appropriate for you. Like PAXLOVID, FDA may also allow for the emergency use of other medicines to treat people with COVID-19. Go to https://www.fda.gov/kqazfewtn-qzvxbsdbhsub-ocqmgduirvk/gml-nwdhk-ktchpnywof-and- policy-framework/cneevgcow-ihu-ssxubxvnpwhxz for information on the emergency use of other medicines that are authorized by FDA to treat people with COVID-19. Your healthcare provider may talk with you aboutclinical trials for which you may be eligible. It is your choice to be treated or not to be treated with PAXLOVID. Should you decide not to receive it or for your child not to receive it, it will not change your standard medical care. What if I am or ? There is monotyper treating women or mothers with PAXLOVID. For a motherand unborn baby, the benefit of taking PAXLOVID may be greater than the risk from the treatment. Ifyou are , discuss your options and specific situation with your healthcare provider. It is recommended that you use effective barrier contraception or do not have sexual activity whiletaking PAXLOVID. If you are , discuss your options and specific situation with your healthcare provider. How do I report side effects with PAXLOVID? Contact your healthcare provider if you have any side effects that bother you or do not go away. Report side effects to FDA [employer] at www.fda.gov/medwatch or call 8-842-QFU7433 or you can reportside effects to [employer]. at the contact information provided below. Website Fax number Telephone number [employer] How should I store PAXLOVID? Store PAXLOVID [...] (EUA). The EUA is supported by a [employer] Worker of Health and Human Service (HHS) declaration that circumstances exist to justify the emergency use of drugs and biological productsduring the COVID-19 pandemic. PAXLOVID for the treatment of ndxz-fc-wurfhkqx COVID-19 in adults and children [12 years of age andolder weighing at least 88 pounds (40 kg)] [...] telephone number provided below. Website Telephone number www[employer]ex[employer].com (8-232-Q43-LUCH) You can also go to www.[employer] or call for more information. Pfizer Distributed by [employer] Division [place] [address] LAB-1494-2.1 Revised: 26 June [address] [facility]12-[facility]-2022 History of Present illness Narrative* Pamela Richards APRN.CNP - 03/11/2022 2:36 PM EST This Team Access Model visit is a virtual encounter. It required patient- provider interaction for the medical decision making as documented below. Patient agrees to the visit: Yes Patient Location: [place] CC: Patient presents with: Covid HPI Aston Napoles is a 47 year old male who is contacted today for a virtual visit. This is an established patient of Dr. Francisco Javier Osorio MD. Symptoms started today. Had a home COVID test which was positive and spouse was also positive todaytoo. Has a sore throat, left ear pain, [...] 2 Puffs as instructed every 4 hours asneeded for Wheezing/Shortness of Breath. COMPOUNDED PRESCRIPTION Increase [...] treatment options, medications, and coordinating care. Pamela Richards APRN.CARINA Nirmatrelvir/Ritonavir (Paxlovid) Eligibility and Patient Discussion [facility] Formulary Restriction Criteria: Adult outpatients 18 [...] reported. The discussion included alternatives to receiving nirmatrelvir/rit onavir, including clinical trials, and potential the risks [...] and disinfect high touch surfaces, and frequent h andwashing) according to CDC guidelines. The patient stated understanding and gave verbal consent to proceeding with nirmatrelvir/ritonavir treatment. Pamela Richards APRN.SENIOR CONTRACT SPECIALIST March 11, 2022 2:48 PM documented [facility] [address] [facility]10-[facility]-2022 History of Present illness Narrative* Catarina Richards APRN.CNP - 01/11/2022 2:55 PM EDT CC: Patient presents with: Follow Up HPI Aston Napoles is a 46 year old male who presents today for above. He is doing really well on Cymbalta. Anxiety is controlled and quality of life has improved. He also switched jobs which has alsohelped tremendously. No medication side effects. He is [...] 2 Puffs as instructed every 4 hours asneeded for Wheezing/Shortness of Breath. COMPOUNDED PRESCRIPTION Increase [...] - Instructed patient to contact office or [id number] after-hours promptly should condition worsen or any new symptoms appear. 2. Obesity, Class I, BMI 30-34.9 - ICD9: 278.00, ICD10: E66.9 Stable - LIPID PANEL BASIC - COMP METABOLIC PANEL 3. KEYLA (obstructive sleep apnea) - ICD9: 327.23, ICD10: G47.33 Compliant with CPAP 4. Encounter for immunization - ICD9: V03.89, ICD10: Z23 - INFLUENZA VACCINE QUADRIVALENT 6 MO - 64 YRS IM - Razer COVID-19 BIVALENT BOOSTER VACCINE, AGE 12+ YR Prescription instructions reviewed with patient as applicable. Potential red flag symptoms discussed with the patient. Reviewed appropriate action plan to take if red flag symptoms occur. Patient agreeable to treatment plan. Catarina Richards APRN.CNP [facility] Miscellaneous Notes* Telephone Encounter - Jody Lott LPN - 11/06/2021 11:41 AM EDT Pt has seen Dr. Nielsen today. * Telephone Encounter - Rebecca Francisco LPN - 11/05/2021 9:06 AM EDT Left message for Patient to call & speak to nurse re: Recurrent problem needing general surgeryconsult. Rebecca Francisco LPN * Telephone Encounter - Britta Mcdowell - 11/05/2021 8:30 AM EDTSummary: Consult to general surgery PT called in this morning requesting an appointment with general surgery as to a problem he had a few years back has returned and is worsening, he is concerned that he would not be able to be coveredunless a referral was to be put in, was curious if we could put in another referral for general surgery, or if he needed one since it has been a recurrent problem. Please advise documented in this encounter[facility]22 History of Present illness Narrative* Jonathan Nielsen MD - 11/06/2021 8:59 AM EDT HISTORY AND PHYSICAL Aston A Dony 1975 REFERRING PHYSICIAN: MD Yony CHIEF COMPLAINT: Consult (cyst, artie rectal, reoccuring ) HPI: The patient is a 46 year old male with a complaint of pain and discomfort in the perianal area. Patient has had a perianal abscess in the past and was actually drained in the emergency department 2008 came back and 2019 and spontaneously drained at that time. No [...] 2 Puffs as instructed every 4 hours asneeded for Wheezing/Shortness of Breath. COMPOUNDED PRESCRIPTION Increase [...] nurse and reviewed by me Nursing Notes: Jaylene Morales LPN 11/06/2021 8:46 AM Signed REVIEW OF SYSTEMS: General: The patient denies fatigue, denies weight loss, notes weight gain, denies feeling hot, anddenies feelings of cold. Eyes: The patient denies [...] back pain/injury, denies back problems, denies sciatica, deniesknee/foot trouble, denies arthritis, or denies gout. When was patient's last Mammogram screening? 2019 Last Colonoscopy: 2020 Jaylene Morales LPN PHYSICAL EXAMINATION: General: The patient is 46 year old male, well nourished, well hydrated in no acute distress. The patient is oriented to time, place, and person. VITALS: Blood pressure 132/88, pulse 97, temperature (!) 35.9 C (96.6 F), height 177.8 cm (5' 10 ),weight 98.4 kg (217 lb), SpO2 97 %. HEENT: Normal cephalic, ataumatic, pupils are equally round, sclera are anicteric, mucous membranesare moist, oropharynx is clear. Neck has no [...] Perianal abscess (primary encounter diagnosis) PLAN: I Alesha start him on antibiotics. We will do [...] have been communicated to Dr. Francisco Javier Osorio MD via shared medical record. This note will be forwarded to Dr. Francisco Javier Osorio MD. Return to Clinic: The patient is instructed to follow-up with me as needed. Jonathan Nielsen III, MD documented in this encounter[facility] Nurse Note* Jaylene Morales, PRODUCT SAFETY ADMINISTRATOR - 11/06/2021 8:45 AM EDT REVIEW OF SYSTEMS: General: The patient denies fatigue, denies weight loss, notes weight gain, denies feeling hot, anddenies feelings of cold. Eyes: The patient denies [...] back pain/injury, denies back problems, denies sciatica, deniesknee/foot trouble, denies arthritis, or denies gout. When was patient's last Mammogram screening? 2019 Last Colonoscopy: 2020 Jaylene Morales LPN documented in [facility]22 Miscellaneous Notes* Telephone Encounter - Norah aRiney RN - 10/26/2021 8:49 AM EDT Protocol Recommended: See PCP within 24 hours if severe diarrhea continues for 24 hours. Patient requested appt with Dr. Osorio today. He is concerned and would like evaluated. Appt made for 7:20pm today. Reason for Disposition [1] SEVERE diarrhea (e.g., 7 or more times / day more than normal) AND [2] present > 24 hours (1day) Answer Assessment - Initial Assessment Questions Patient [...] Fever or blood in stool Protocols used: [id number] documented in this encounterMount [facility]. [facility]06-[facility]-2022 History of Present illness Narrative* Francisco Javier Osorio MD - 09/24/2021 1:45 PM EDT This note was created using [employer]. Subjective Aston Napoles is a 46 year old male. He was seen at [facility] for [facility], tested negative. He was started on Augmentin and was advised Sudafed. He called 09/22 not feeling better. Hisfever broke yesterday and he was much better. [...] 2 Puffs as instructed every 4 hours asneeded for Wheezing/Shortness of Breath. COMPOUNDED PRESCRIPTION Increase [...] is impacted cerumen. Tympanic membrane is scarred. Tympanicmembrane is not erythematous. Ears: Comments: Post lavage. [...] ICD9: 461.8, ICD10: J01.80 Resolving. Francisco Javier Osorio MD documented in this encounterMount [facility]06-[facility]-2022 Miscellaneous Notes* Telephone Encounter - Amy Ervin LPN - 09/23/2021 8:34 AM EDT Patient returned call and went over my chart message that was sent, appt scheduled with Dr Osorio for 09/24 at 140 pm since [facility] schedule no appt is available. Patient [facility] and put on amox rx, coughing, had fever. * Telephone Encounter - Rebecca Francisco LPN - 09/23/2021 8:20 AM EDT Left message to call & speak to nurse. Rebecca Francisco LPN * Telephone Encounter - Francisco Javier Osorio MD - 09/22/2021 8:42 PM EDT He was not evaluated here so for now continue with current treatment plan. Expect improvement another 1-2 days. Appointment or urgent care here if not better end of this week. ER if worse. * Telephone Encounter - Yas Patterson RN - 09/22/2021 9:28 AM EDT Pt states he has been feeling sick [...] antibiotic for him, he uses [facility] in [place]. Please call and advise. documented in this encounterMount [facility]. [facility]03-26-2022 History of Present illness Narrative* Francisco Javier Osorio MD - 07/04/2021 11:39 AM EDT ASSESSMENT/PLAN: 1. Positive hepatitis C antibody test - ICD9: 795.79, ICD10: R76.8 Negative HCV RNA. Repeat in 6 weeks. - HEP REMOTE PANEL BL - HEPATIC FUNCTION PNL Francisco Javier Osorio MD documented in this encounterMount [facility]. [facility]03-[facility]-2021 History of Present illness Narrative* Avelina Damon (Rt), Vaughn - 07/01/2020 9:10 AM EDT Radiology Service Progress Note PATIENT NAME: Aston Napoles DATE OF SERVICE: July 01, 2020 TIME: 9:16 AM PATIENT IDENTITY VERIFICATION COMPLETED USING TWO (2) IDENTIFIERS: Name and Date of confirmedby patient verbally. FALL SCREENING: Has the patient had 2 falls in the last year or 1 fall with injury or currently using an Ambulatory Assistive Device (Walker, Cane, Wheelchair, Crutches, etc.)? No PATIENT GENDER DATA: Male PATIENT RELEVANT IMPLANT DATA REVIEWED: Yes RADIOLOGY DEPARTMENT: General X-ray: Exam(s) Completed: Abdomen X-Ray Abdomen PERIPHERAL IV DATA: Not applicable SIGNED BY: RT Elmer July 01, 2020 9:16 AM [place] [id number] History of Past illness Narrative* Problem Noted Date Resolved Date Somnolence, daytime 02/27/2018 09/28/2018 Elevated blood pressure reading 02/27/2018 09/28/2018 documented as of this encounter (statuses as of 07/04/2021) [address]19-2018 History of Past illness Narrative* Problem Noted Date Resolved Date Somnolence, daytime 02/27/2018 09/28/2018 Elevated blood pressure reading 02/27/2018 09/28/2018 documented as of this encounter (statuses as of 09/23/2021) [place] [id number] History of Past illness Narrative* Problem Noted Date Resolved Date Somnolence, daytime 02/27/2018 09/28/2018 Elevated blood pressure reading 02/27/2018 09/28/2018 documented as of this encounter (statuses as of 09/23/2021) [place] [id number] History of Past illness Narrative* Problem Noted Date Resolved Date Somnolence, daytime 02/27/2018 09/28/2018 Elevated blood pressure reading 02/27/2018 09/28/2018 documented as of this encounter (statuses as of 09/24/2021) [address]19-2018 History of Past illness Narrative* Problem Noted Date Resolved Date Somnolence, daytime 02/27/2018 09/28/2018 Elevated blood pressure reading 02/27/2018 09/28/2018 documented as of this encounter (statuses as of 10/27/2021) [address]19-2018 History of Past illness Narrative* Problem Noted Date Resolved Date Somnolence, daytime 02/27/2018 09/28/2018 Elevated blood pressure reading 02/27/2018 09/28/2018 documented as of this encounter (statuses as of 11/06/2021) [address]19-2018 History of Past illness Narrative* Problem Noted Date Resolved Date Somnolence, daytime 02/27/2018 09/28/2018 Elevated blood pressure reading 02/27/2018 09/28/2018 documented as of this encounter (statuses as of 11/06/2021) [facility] of Past illness Narrative* Problem Noted Date Resolved Date Somnolence, daytime 02/27/2018 09/28/2018 Elevated blood pressure reading 02/27/2018 09/28/2018 documented as of this encounter (statuses as of 01/11/2022) [address]19-2018 History of Past illness Narrative* Problem Noted Date Resolved Date Somnolence, daytime 02/27/2018 09/28/2018 Elevated blood pressure reading 02/27/2018 09/28/2018 documented as of this encounter (statuses as of 03/11/2022) [address]19-2018 History of Past illness Narrative* Problem Noted Date Resolved Date Somnolence, daytime 02/27/2018 09/28/2018 Elevated blood pressure reading 02/27/2018 09/28/2018 documented as of this encounter (statuses as of 04/17/2022) [facility] Narrative* Problem Noted Date Resolved Date Somnolence, daytime 02/27/2018 09/28/2018 Elevated blood pressure reading 02/27/2018 09/28/2018 documented as of this encounter (statuses as of 05/17/2022) [place] [address] History of Past illness Narrative* Problem Noted Date Resolved Date Somnolence, daytime 02/27/2018 09/28/2018 Elevated blood pressure reading 02/27/2018 09/28/2018 documented as of this encounter (statuses as of 05/26/2022) [address]19-2018 History of Past illness Narrative* Problem Noted Date Resolved Date Somnolence, daytime 02/27/2018 09/28/2018 Elevated blood pressure reading 02/27/2018 09/28/2018 documented as of this encounter (statuses as of 07/22/2022) [address]19-2018 History of Past illness Narrative* Problem Noted Date Diagnosed Date Resolved Date Somnolence, daytime 02/27/2018 09/29/19 19 Elevated blood pressure reading 02/27/2018 09/28/2018 documented as of this encounter (statuses as of 11/04/2022) [address]19-2018 History of Past illness Narrative* Problem Noted Date Diagnosed Date Resolved Date Somnolence, daytime 02/27/2018 09/29/19 19 Elevated blood pressure reading 02/27/2018 09/28/2018 documented as of this encounter (statuses as of 12/16/2022) [address]19-2018 History of Past illness Narrative* Problem Noted Date Diagnosed Date Resolved Date Somnolence, daytime 02/27/2018 09/29/19 19 Elevated blood pressure reading 02/27/2018 09/28/2018 documented as of this encounter (statuses as of 12/24/2022) [address]19-2018 History of Past illness Narrative* Problem Noted Date Diagnosed Date Resolved Date Somnolence, daytime 02/27/2018 09/29/19 19 Elevated blood pressure reading 02/27/2018 09/28/2018 documented as of this encounter (statuses as of 02/01/2023) [address]19-2018 History of Past illness Narrative* Problem Noted Date Diagnosed Date Resolved Date Somnolence, daytime 02/27/2018 09/29/19 19 Elevated blood pressure reading 02/27/2018 09/28/2018 documented as of this encounter (statuses as of 02/07/2023) [address]19-2018 History of Past illness Narrative* Problem Noted Date Diagnosed Date Resolved Date Somnolence, daytime 02/27/2018 09/29/19 19 Elevated blood pressure reading 02/27/2018 09/28/2018 documented as of this encounter (statuses as of 02/17/2023) [address]19-2018 History of Past illness Narrative* Problem Noted Date Diagnosed Date Resolved Date Somnolence, daytime 02/27/2018 09/29/19 19 Elevated blood pressure reading 02/27/2018 09/28/2018 documented as of this encounter (statuses as of 02/18/2023) [address]19-2018 History of Past illness Narrative* Problem Noted Date Diagnosed Date Resolved Date Somnolence, daytime 02/27/2018 09/29/19 19 Elevated blood pressure reading 02/27/2018 09/28/2018 documented as of this encounter (statuses as of 02/24/2023) [facility] of Past illness Narrative* Problem Noted Date Diagnosed Date Resolved Date Somnolence, daytime 02/27/2018 09/29/19 19 Elevated blood pressure reading 02/27/2018 09/28/2018 documented as of this encounter (statuses as of 02/24/2023) [facility] illness Narrative* Problem Noted Date Diagnosed Date Resolved Date Somnolence, daytime 02/27/2018 09/29/19 19 Elevated blood pressure reading 02/27/2018 09/28/2018 documented as of this encounter (statuses as of 02/25/2023) [facility] Diagnosis Positive hepatitis C antibody test- Primary Other and unspecified nonspecific immunological findings [facility] Diagnosis Impacted cerumen of left ear- Primary Impacted cerumen Acute non-recurrent sinusitis of other sinus [facility] Diagnosis Perianal abscess- Primary Abscess of anal and rectal regions [facility] Diagnosis Anxiety and depression- Primary Dysthymic disorder Obesity, Class I, BMI 30-34.9 Obesity, unspecified KEYLA (obstructive sleep apnea) Obstructive sleep apnea (adult) (pediatric) Encounter for immunization Need for other specified prophylactic vaccination against single bacterial disease [facility] Diagnosis COVID- Primary [facility]* Diagnosis Dermatitis Contact dermatitis and other eczema, due to unspecified cause [facility]* Diagnosis Non-recurrent acute suppurative otitis media of both ears without spontaneous rupture of tympanic membranes- Primary [facility]* Diagnosis Anxiety and depression Dysthymic disorder [facility]* Diagnosis Bug bite, initial encounter- Primary Skin infection Unspecified local infection of skin and subcutaneous tissue [facility]* Diagnosis Otitis media, recurrent, left- [...] single bacterial disease [facility] this [facility]* Diagnosis Abdominal pain, left lower quadrant- Primary Rectal bleeding Hemorrhage of rectum and anus Subareolar mass of left breast Need for COVID-19 vaccine [facility] this [facility]* Diagnosis Abdominal pain, left lower quadrant Rectal bleeding Hemorrhage of rectum and anus [facility] this [facility]* Diagnosis Hemorrhage of rectum and anus- Primary Abdominal pain, left lower quadrant Rectal bleeding Hemorrhage of rectum and anus [facility] this [facility]* Diagnosis Subareolar mass of left breast [facility]* Diagnosis Subareolar mass of left breast [facility] this [facility]* Diagnosis Anal warts- Primary Condyloma acuminatum [facility] this [facility]* Diagnosis Elevated blood pressure reading in office without diagnosis of hypertension- Primary Encounter for immunization Need for other specified prophylactic vaccination against single bacterial disease Acute suppurative otitis media of both ears without spontaneous rupture of tympanic membranes, recurrence not specified Other infective acute otitis externa of both ears Acute cough Acute non-recurrent frontal sinusitis [facility] this [facility]* Diagnosis Other infective acute otitis externa of both ears Acute suppurative otitis media of both ears without spontaneous rupture of tympanic membranes, recurrence not specified Acute non-recurrent frontal sinusitis [facility] this [facility]* Diagnosis Acute cough- Primary [facility] this [facility]* Diagnosis Abdominal wall cellulitis- Primary Cellulitis and abscess of trunk [facility] this [facility]* Diagnosis Abdominal wall cellulitis- Primary Cellulitis and abscess of trunk [facility] this [facility]* Diagnosis Anxiety and depression Dysthymic disorder [facility] this [facility]* Diagnosis Anal warts- Primary Condyloma acuminatum [facility] this [facility]* Diagnosis Preoperative examination- Primary Preoperative examination, unspecified KEYLA (obstructive sleep apnea) Obstructive sleep apnea (adult) (pediatric) Anxiety and depression Dysthymic disorder Hyperlipidemia, unspecified hyperlipidemia type Psoriasis Other psoriasis Anal warts Condyloma acuminatum * Assessment & Plan Note - LiPham PA-C - 08/04/2023 2:46 PM EDT Associated Problem(s): Psoriasis Assessment: on Taltz * Assessment & Plan Note - Pham Li PA-C - 08/04/2023 2:03 PM EDT Associated Problem(s): HLD (hyperlipidemia) Assessment: not on medication * Assessment & Plan Note - Pham Li PA-C - 08/04/2023 2:02 PM EDT Associated Problem(s): Anxiety and depression Assessment: on cymbalta * Assessment & Plan Note - Pham Li PA-C - 08/04/2023 2:02 PM EDT Associated Problem(s): KEYLA (obstructive sleep apnea) Assessment: compliant with CPAP [facility] Diagnosis Seasonal allergic rhinitis, unspecified trigger [facility]* Diagnosis Anal warts- Primary Condyloma acuminatum [facility] Diagnosis Pain in left foot Pain in limb [facility] Diagnosis Chronic pain of left ankle- Primary Calcaneal spur of left foot Calcaneal spur [facility] Diagnosis History of seizure- Primary Personal history of other disorders of nervous system and sense organs Need for vaccination Need for prophylactic vaccination and inoculation against unspecified single disease [facility]* Diagnosis Routine medical exam- Primary Routine general medical examination at a health care facility Dermatitis Contact dermatitis and other eczema, due to unspecified cause Psoriasis Other psoriasis Anxiety and depression Dysthymic disorder Disturbance of smell Disturbances of sensation of smell and taste History of seizure Personal history of other disorders of nervous system and sense organs Chest pain, atypical Other chest pain Pain in joint involving multiple sites Pain in joint, multiple sites [facility] Diagnosis Seizure disorder (HCC)- Primary Unspecified epilepsy without mention of intractable epilepsy History of seizure Personal history of other disorders of nervous system and sense organs [facility] this encounter [facility]* Diagnosis Chronic pain of left ankle [facility] this [facility]* Diagnosis History of seizure Personal history of other disorders of nervous system and sense organs Seizure disorder (HCC) Unspecified epilepsy without mention of intractable epilepsy [facility]* Diagnosis Chronic heel pain, left- Primary [facility] this [facility]* Diagnosis Preoperative examination- Primary Preoperative examination, unspecified KEYLA (obstructive sleep apnea) Obstructive sleep apnea (adult) (pediatric) Anxiety and depression Dysthymic disorder Hyperlipidemia, unspecified hyperlipidemia type Psoriasis Other psoriasis Chronic heel pain, left- Primary documented [facility] this [facility]* Diagnosis Preoperative examination- Primary Preoperative examination, unspecified KEYLA (obstructive sleep apnea) Obstructive sleep apnea (adult) (pediatric) Anxiety and depression Dysthymic disorder Hyperlipidemia, unspecified hyperlipidemia type Psoriasis Other psoriasis Achilles tendinitis of left lower extremity- Primary Achilles bursitis or tendinitis [facility]* Diagnosis Preoperative examination- Primary Preoperative examination, unspecified KEYLA (obstructive sleep apnea) Obstructive sleep apnea (adult) (pediatric) Anxiety and depression Dysthymic disorder Hyperlipidemia, unspecified hyperlipidemia type Psoriasis Other psoriasis Chronic heel pain, left- Primary Achilles tendinitis of left lower extremity Achilles bursitis or tendinitis [facility] Diagnosis Preoperative examination- Primary Preoperative examination, unspecified KEYLA (obstructive sleep apnea) Obstructive sleep apnea (adult) (pediatric) Anxiety and depression Dysthymic disorder Hyperlipidemia, unspecified hyperlipidemia type Psoriasis Other psoriasis Chronic heel pain, left- Primary Achilles tendinitis of left lower extremity Achilles bursitis or tendinitis Pre-op testing Preoperative examination, unspecified Achilles tendinitis of left lower extremity Achilles bursitis or tendinitis [facility] this encounter [facility] Diagnosis Preoperative examination- Primary Preoperative examination, unspecified KEYLA (obstructive sleep apnea) Obstructive sleep apnea (adult) (pediatric) Anxiety and depression Dysthymic disorder Hyperlipidemia, unspecified hyperlipidemia type Psoriasis Other psoriasis Suspected COVID-19 virus infection- Primary Acute otitis media, left Unspecified otitis media Achilles tendinitis of left lower extremity Achilles bursitis or tendinitis [facility] Diagnosis Preoperative examination- Primary Preoperative examination, unspecified KEYLA (obstructive sleep apnea) Obstructive sleep apnea (adult) (pediatric) Anxiety and depression Dysthymic disorder Hyperlipidemia, unspecified hyperlipidemia type Psoriasis Other psoriasis Rectal bleeding- Primary Hemorrhage of rectum and anus Achilles tendinitis of left lower extremity Achilles bursitis or tendinitis [facility] Constipation, unspecified constipation type Lower abdominal pain Abdominal pain, other specified site Preoperative examination- Primary Preoperative examination, unspecified KEYLA (obstructive sleep apnea) Obstructive sleep apnea (adult) (pediatric) Anxiety and depression Dysthymic disorder Hyperlipidemia, unspecified hyperlipidemia type Psoriasis Other psoriasis Achilles tendinitis of left lower extremity Achilles bursitis or tendinitis [facility] Diagnosis Preoperative examination- Primary Preoperative examination, unspecified KEYLA (obstructive sleep apnea) Obstructive sleep apnea (adult) (pediatric) Anxiety and depression Dysthymic disorder Hyperlipidemia, unspecified hyperlipidemia type Psoriasis Other psoriasis Asymmetrical sensorineural hearing loss- Primary Sensorineural hearing loss, asymmetrical Achilles tendinitis of left lower extremity Achilles bursitis or tendinitis [facility] Diagnosis Preoperative examination- Primary Preoperative examination, unspecified KEYLA (obstructive sleep apnea) Obstructive sleep apnea (adult) (pediatric) Anxiety and depression Dysthymic disorder Hyperlipidemia, unspecified hyperlipidemia type Psoriasis Other psoriasis Acute otitis externa of right ear, unspecified type Dysfunction of both eustachian tubes Dysfunction of Eustachian tube Sensorineural hearing loss (SNHL) of left ear with unrestricted hearing of right ear Chronic eczematous otitis externa of both ears Achilles tendinitis of left lower extremity Achilles bursitis or tendinitis [facility] Diagnosis Preoperative examination- Primary Preoperative examination, unspecified KEYLA (obstructive sleep apnea) Obstructive sleep apnea (adult) (pediatric) Anxiety and depression Dysthymic disorder Hyperlipidemia, unspecified hyperlipidemia type Psoriasis Other psoriasis Pre-op testing- Primary Preoperative examination, unspecified Achilles tendinitis of left lower extremity Achilles bursitis or tendinitis KEYLA (obstructive sleep apnea) Obstructive sleep apnea (adult) (pediatric) Anxiety and depression Dysthymic disorder Hyperlipidemia, unspecified hyperlipidemia type Obesity, Class I, BMI 30-34.9 Obesity, unspecified Vitamin D deficiency Unspecified vitamin D deficiency History of seizures Personal history of other disorders of nervous system and sense organs Seasonal allergic rhinitis, unspecified trigger Achilles tendinitis of left lower extremity Achilles bursitis or tendinitis * Assessment & Plan Note - Gaetano Ambrocio PA-C - 01/20/2024 8:07 AM EDT Associated Problem(s): Seasonal allergic rhinitis Assessment: managed with FLonase and Zyrtec * Assessment & Plan Note - Gaetano Ambrocio PA-C - 01/20/2024 8:05 AM EDT Associated Problem(s): History of seizures Assessment: twice initially, then none on medication for 9 years, weaned off successfully * Assessment & Plan Note - Gaetano Ambrocio PA-C - 01/20/2024 8:01 AM EDT Associated Problem(s): Vitamin D deficiency Assessment: patient took PO Vit D per surgeon request starting in October 2023 Will have Vit D level checked today 01/20/2024 * Assessment & Plan Note - Gaetano Ambrocio PA-C - 01/20/2024 8:00 AM EDT Associated Problem(s): Obesity, Class I, BMI 30-34.9 Assessment:BMI 31.26 * Assessment & Plan Note - Gaetano Ambrocio PA-C - 01/20/2024 8:00 AM EDT Associated Problem(s): HLD (hyperlipidemia) Assessment: not on medication * Assessment & Plan Note - Gaetano Ambrocio PA-C - 01/20/2024 8:00 AM EDT Associated Problem(s): Anxiety and depression Assessment: mood stable per patient on Cymbalta * Assessment & Plan Note - Gaetano Ambrocio PA-C - 01/20/2024 8:00 AM EDT Associated Problem(s): KEYLA (obstructive sleep apnea) Assessment: compliant with CPAP Advised to bring machine DOS [facility] Diagnosis Preoperative examination- Primary Preoperative examination, unspecified KEYLA (obstructive sleep apnea) Obstructive sleep apnea (adult) (pediatric) Anxiety and depression Dysthymic disorder Hyperlipidemia, unspecified hyperlipidemia type Psoriasis Other psoriasis Pre-op testing- Primary Preoperative examination, unspecified Achilles tendinitis of left lower extremity Achilles bursitis or tendinitis KEYLA (obstructive sleep apnea) Obstructive sleep apnea (adult) (pediatric) Anxiety and depression Dysthymic disorder Hyperlipidemia, unspecified hyperlipidemia type Obesity, Class I, BMI 30-34.9 Obesity, unspecified Vitamin D deficiency Unspecified vitamin D deficiency History of seizures Personal history of other disorders of nervous system and sense organs Seasonal allergic rhinitis, unspecified trigger Bladder wall thickening- Primary Other specified disorders of bladder Urgency of urination Mixed stress and urge urinary incontinence Mixed incontinence urge and stress (male)(female) Prostate cancer screening Special screening for malignant neoplasm of prostate Achilles tendinitis of left lower extremity Achilles bursitis or tendinitis documented in this encounter [facility] Diagnosis Preoperative examination- Primary Preoperative examination, unspecified KEYLA (obstructive sleep apnea) Obstructive sleep apnea (adult) (pediatric) Anxiety and depression Dysthymic disorder Hyperlipidemia, unspecified hyperlipidemia type Psoriasis Other psoriasis Pre-op testing- Primary Preoperative examination, unspecified Achilles tendinitis of left lower extremity Achilles bursitis or tendinitis KEYLA (obstructive sleep apnea) Obstructive sleep apnea (adult) (pediatric) Anxiety and depression Dysthymic disorder Hyperlipidemia, unspecified hyperlipidemia type Obesity, Class I, BMI 30-34.9 Obesity, unspecified Vitamin D deficiency Unspecified vitamin D deficiency History of seizures Personal history of other disorders of nervous system and sense organs Seasonal allergic rhinitis, unspecified trigger Anxiety and depression- Primary Dysthymic disorder Achilles tendinitis of left lower extremity Achilles bursitis or tendinitis Hyperlipidemia, unspecified hyperlipidemia type Achilles tendinitis of left lower extremity Achilles bursitis or tendinitis documented in this encounter [facility] for referral (narrative)* Diagnostic Procedure Only (Routine) - Pending Review Specialty Diagnoses / Procedures Referred By Betzaidaac t Referred To Contact [facility] Diagnoses Subareolar mass of left breast Procedures US BREAST LTD LEFT US BREAST UNI REAL TIME WITH IMAGE LIMITED Francisco Javier Osorio MD [address] [place] [address] [facility] [address] [place] [address] Referral ID Status Reason Start Date Expiration Date Visits Requested Visits Authorized [id number] Pending Review Auto-Generat ed Referral 3 03/01/2024 1 1 * Diagnostic Procedure Only (Routine) - Pending Review Specialty Diagnoses / Procedures Referred By Marian t Referred To Contact [facility] Diagnoses Subareolar mass of left breast Procedures [facility] LEFT DIAGNOSTIC MAMMOGRAPHY COMPUTER-AIDED DETCJ UNI Francisco Javier Osorio MD [address] [place] [address] [facility] [address] [address] Referral ID Status Reason Start Date Expiration Date Visits Requested Visits Authorized [id number] Pending Review Auto-Generat ed Referral 3 03/01/2024 1 1 * Consult, Test, Treat (Routine) - Authorized Specialty Diagnoses / Procedures Referred By Contac t Referred To Contact General Surgery Diagnoses Abdominal pain, left lower quadrant Rectal bleeding Procedures CONSULT TO GENERAL SURGERY OFFICE/OUTPATIENT [facility] 60-74 MINUTES Francisco Javier Osorio MD [address] [place] [address] Referral ID Status Reason Start Date Expiration Date Visits Requested Visits Authorized [id number] Authorized PCP Requested Referral 3 01/31/2024 1 1 [facility] for referral (narrative)* Outpatient Procedure (Routine) - Authorized Specialty Diagnoses / Procedures Referred By Contac t Referred To Contact [facility] Diagnoses Abdominal pain, left lower quadrant Rectal bleeding Procedures COLONOSCOPY DIAGNOSTIC COLONOSCOPY FLX DX W/COLLJ SPEC WHEN Jonathan Brooks MD [address] [place] [address] [address] Referral ID Status Reason Start Date Expiration Date Visits Requested Visits Authorized [id number] Authorized Auto-Generat ed Referral 3 02/02/2024 1 1 [facility] for referral (narrative)* Outpatient Procedure (Routine) - Closed Specialty Diagnoses / Procedures Referred By Contac t Referred To Contact [facility] [place] Diagnoses Abdominal pain, left lower quadrant Rectal bleeding Procedures COLONOSCOPY DIAGNOSTIC COLONOSCOPY FLX DX W/COLLJ SPEC WHEN Jonathan Brooks MD [address] [facility] [place] [address] [address] Referral ID Status Reason Start Date Expiration Date V isits Requested Visits Authorized [id number] Closed Auto-Generate d Referral 02/01/2023 02/02/2024 1 1 [facility] for referral (narrative)* Diagnostic Procedure Only (Routine) - Closed Specialty Diagnoses / Procedures Referred By Contac t Referred To Contact [facility] Diagnoses Subareolar mass of left breast Procedures US BREAST LTD LEFT US BREAST UNI REAL TIME WITH IMAGE LIMITED Francisco Javier Osorio MD [address] [place] [address] [facility] [address] [place] [address] Referral ID Status Reason Start Date Expiration Date V isits Requested Visits Authorized [id number] Closed Auto-Generate d Referral 01/31/2023 03/01/2024 1 1 [facility] for referral (narrative)* Outpatient Procedure (Routine) - Authorized Specialty Diagnoses / Procedures Referred By Marian t Referred To Contact [facility] Diagnoses History of seizure Seizure disorder (HCC) Procedures EPIL EEG ROUTINE ELECTROENCEPHALOGRAM REC COMA/SLEEP ONLY Madhuri Casiano PA-C [address] [place] [address] [address] Referral ID Status Reason Start Date Expiration Date Visits Requested Visits Authorized [id number] Authorized Auto-Generat ed Referral 11/01/2023 10/31/2024 1 1 [facility] for referral (narrative)* Diagnostic Procedure Only (Routine) - Closed Specialty Diagnoses / Procedures Referred By Marian t Referred To Contact MR IMAGING Diagnoses Chronic pain of left ankle Procedures MRI ANKLE WO IVCON LEFT MRI ANY JT LOWER EXTREM W/O CONTRAST Aston Blackwell [address] [place] [address] [place] [address] Referral ID Status Reason Start Date Expiration Date V isits Requested Visits Authorized [id number] Closed Auto-Generate d Referral 10/10/2023 04/10/2024 1 1 [facility] for referral (narrative)* Outpatient Procedure (Routine) - New Request Specialty Diagnoses / Procedures Referred By Marian dash Referred To Contact [facility] Diagnoses Bladder wall thickening Urgency of urination Mixed stress and urge urinary incontinence Procedures CYSTO/TRUS ONLY CYSTOURETHROSCOPY US, TRANSRECTAL Jonathan Foster APRN.GILBERTO LIM [address] [place] [address] [facility] [address] [place] [address] Referral ID Status Reason Start Date Expiration Date Visits Requested Visits Authorized [id number] New Request Auto-Generat ed Referral 4 01/22/2025 1 1 * MRI/CT (Routine) - Pending Review Specialty Diagnoses / Procedures Referred By Contac t Referred To Contact CT IMAGING Diagnoses Bladder wall thickening Procedures CT UROGRAM WO/W IVCON CT ABD & PELVIS W/WO CONTRST 1+ BODY REGJonathan Weldon APRN.GILBERTO LIM [address] [place] [address] [place] [address] Referral ID Status Reason Start Date Expiration Date Visits Requested Visits Authorized [id number] Pending Review Auto-Generat ed Referral 4 02/21/2025 1 1 [facility] for visit Narrative* Outpatient Procedure (Routine) - Closed Specialty Diagnoses / Procedures Referred By Contac t Referred To Contact [facility] Diagnoses Abdominal pain, left lower quadrant Rectal bleeding Procedures COLONOSCOPY DIAGNOSTIC COLONOSCOPY FLX DX W/COLLJ SPEC WHEN PFRMD Jonathan Nielsen MD [address] [facility] [place] [address] [facility] [place] [address] [place] [address] Referral ID Status Reason Start Date Expiration Date V isits Requested Visits Authorized [id number] Closed Auto-Generate d Referral 02/01/2023 02/02/2024 1 1 [facility] for visit Narrative* Diagnostic Procedure Only (Routine) - Closed Specialty Diagnoses / Procedures Referred By Contac t Referred To Contact [facility] Diagnoses Subareolar mass of left breast Procedures [facility] LEFT DIAGNOSTIC MAMMOGRAPHY COMPUTER-AIDED DETCJ UNI Francisco Javier Osoroi MD [address] [place] [address] [facility] [address] [place] [address] Referral ID Status Reason Start Date Expiration Date V isits Requested Visits Authorized [id number] Closed Auto-Generate d Referral 01/31/2023 03/01/2024 1 1 [facility] for visit Narrative* Diagnostic Procedure Only (Routine) - Closed Specialty Diagnoses / Procedures Referred By Contac t Referred To Contact XR IMAGING Diagnoses Pain in left foot Procedures XR FOOT GENERAL 3V AP/LAT/OBL LEFT RADEX FOOT COMPLETE MINIMUM 3 VIEWS Aston Mcmahan [address] [place] [address] [place] [address] Referral ID Status Reason Start Date Expiration Date V isits Requested Visits Authorized [id number] Closed Auto-Generate d Referral 10/10/2023 11/08/2024 1 1 [facility] for visit Narrative* Diagnostic Procedure Only (Routine) - Closed Specialty Diagnoses / Procedures Referred By Contac t Referred To Contact MR IMAGING Diagnoses Chronic pain of left ankle Procedures MRI ANKLE WO IVCON LEFT MRI ANY JT LOWER EXTREM W/O CONTRAST MATRL Astno Mcmahan [address] [place] [address] [place] [address] Referral ID Status Reason Start Date Expiration Date V isits Requested Visits Authorized [id number] Closed Auto-Generate d Referral 10/10/2023 04/10/2024 1 1 [facility] for visit Narrative* Outpatient Procedure (Routine) - Closed Specialty Diagnoses / Procedures Referred By Contac t Ref[facility] Diagnoses History of seizure Seizure disorder (HCC) Procedures EPIL EEG ROUTINE ELECTROENCEPHALOGRAM REC COMA/SLEEP ONLY Madhuri Casiano PA-C [address] [place] [address] [facility] [place] [address] [place] [address] Referral ID Status Reason Start Date Expiration Date V isits Requested Visits Authorized [id number] Closed Auto-Generate d Referral 11/01/2023 10/31/[address] [facility] Summary Purpose Family History No Family [...] (BENADRYL) 12.5-50 mg, INTRAVENOUS, DIRECTED, Starting on Cammie 02/17/23 at [...] Given 02/17/2023 8:44 AM EST 50 mcg Given 02/17/2023 8:35 AM EST 50 mcg lactated ringers iv infusion 30 mL/hr, INTRAVENOUS, CONTINUOUS, Starting on Cammie 02/17/23 at 0800, Until Cammie 02/17/23 at 0910, Preprocedure New Bag/Syringe/Bottle 02/17/2023 8:07 AM EST 30 mL/hr 30 mL/hr Arm, Right meperidine (PF) 12.5-100 mg injection (DEMEROL) 12.5-100 mg, INTRAVENOUS, DIRECTED, Starting on Cammie 02/17/23 at 0900, Until Cammie 02/17/23 at 1259, DOSING DIRECTED BY PHYSICIAN FOR PROCEDURAL SEDATION ONLY, Intraprocedure Given 02/17/2023 8:49 AM EST 50 mg midazolam 1-5 mg injection (VERSED) 1-5 mg, INTRAVENOUS, DIRECTED, Starting on Cammie 02/17/23 at 0900, Until Cammie 02/17/23 at 1259, DOSING DIRECTED BY PHYSICIAN FOR PROCEDURAL SEDATION ONLY, Intraprocedure Given 02/17/2023 8:44 AM EST 2 mg Given 02/17/2023 8:39 AM EST 2 mg Given 02/17/2023 8:35 AM EST 3 mg Reason for Referral Specialty Diagnoses / Procedures Referred By Contac t Referred To Contact [facility] Diagnoses Chronic pain of left ankle Procedures CONSULT TO PHYSICAL THERAPY PHYSICAL THERAPY EVALUATION HIGH COMPLEX 45 MINS Aston Mcmahan [address] [place] [address] [facility] [place] [address] [place] [address] Referral ID Status Reason Start Date Expiration Date Visits Requested Visits Authorized [id number] Authorized Auto-Generat ed Referral 04/11/2023 04/10/2024 20 20 Specialty Diagnoses / Procedures Referred By Contac t Referred To Contact MR IMAG[facility] Diagnoses Chronic pain of left ankle Procedures MRI ANKLE WO IVCON LEFT MRI ANY JT LOWER EXTREM W/O CONTRAST MATRL Aston Mcmahan [address] [place] [address] [place] [address] Referral ID Status Reason Start Date Expiration Date Visits Requested Visits Authorized [id number] Pending Review Auto-Generat ed Referral 10/10/2023 11/08/2024 1 1 Specialty Diagnoses / Procedures Referred By Contac t Referred To Contact Neurology Diagnoses History of seizure Procedures CONSULT TO NEUROLOGY OFFICE/OUTPATIENT [facility] MDM 60 MINUTES Francisco Javier Osorio MD [facility] [place] [address] Referral ID Status Reason Start Date Expiration Date Visits Requested Visits Authorized [id number] Authorized PCP Requested Referral 10/28/2023 10/27/2024 1 1 Specialty Diagnoses / Procedures Referred By Contac t Referred To Contact Dermatology Diagnoses Dermatitis Psoriasis Procedures CONSULT TO DERMATOLOGY Francisco Javier Osorio MD [address] [place] [address] Referral ID Status Reason Start Date Expiration Date Visits Requested Visits Authorized [id number] Ref Not Required PCP Requested Referral 10/31/2023 10/30/2024 1 1 Specialty Diagnoses / Procedures Referred By Contac t Referred To Contact Procedures HEARING TEST/AUDIOGRAM COMPRE AUDIOMETRY THRESHOLD EVAL German Garsia, AUD [address] [place] [address] [facility] [address] [place] [address] Referral ID Status Reason Start Date Expiration Date Visits Requested Visits Authorized [id number] New Request Auto-Generat ed Referral 4 01/19/2025 1 1 Specialty Diagnoses / Procedures Referred By Marian t Referred To Contact MR IMAGING Diagnoses Sensorineural hearing loss (SNHL) of left ear with unrestricted hearing of right ear Procedures MRI BRAIN WO/W IVCON MRI BRAIN BRAIN STEM W/O W/CONTRAST MATERIAL Latisha Birmingham PA-C [address] [place] [address] Mr Imaging [facility] Referral ID Status Reason Start Date Expiration Date Visits Requested Visits Authorized [id number] New Request Auto-Generat ed Referral 4 02/17/2025 1 1 Additional Source Comments (unrecognized sect ion and content) No Status Records FoundNo Status Records FoundNo Status Records FoundNo Status Records FoundNo Status Records FoundNo Status Records FoundNo Status Records Found INFORMATION SOURCE (unrecogn ized section and content) DATE CREATED AUTHOR 10/03/2017 [facility] DATE CREATED AUTHOR AUTHOR'S ORGANIZ ATION 10/04/2017 [facility] DATE CREATED AUTHOR AUTHOR'S ORGANIZ ATION 11/03/2017 [facility] DATE CREATED AUTHOR AUTHOR'S ORGANIZ ATION 08/11/2023 [facility] DATE CREATED AUTHOR AUTHOR'S ORGANIZ ATION 01/21/2024 [facility] DATE CREATED AUTHOR AUTHOR'S ORGANIZ ATION 02/01/2024 [facility] DATE CREATED AUTHOR AUTHOR'S ORGANIZ ATION 02/02/20[facility] Source Comments (unrecognize d section and content) In the event this informatio n is protected by the Federal Confidentiality of Alcohol and Drug Abuse Patient Records regulations: The Federal rules restrict any use of the information to criminally investigate or prosecute any alcohol or drug abuse patient.[facility] the event this information is protected by the Federal Confidentiality of Alcohol and Drug Abuse Patient Records regulations: The Federal rules restrict any use of the information to criminally investigate or prosecute any alcohol or drug abuse patient.[facility] the event this information is protected by the Federal Confidentiality of Alcohol and Drug Abuse Patient Records regulations: The Federal rules restrict any use of the information to criminally investigate or prosecute any alcohol or drug abuse patient.[facility] the event this information is protected by the Federal Confidentiality of Alcohol and Drug Abuse Patient Records regulations: The Federal rules restrict any use of the information to criminally investigate or prosecute any alcohol or drug abuse patient.[facility] the event this information is protected by the Federal Confidentiality of Alcohol and Drug Abuse Patient Records regulations: The Federal rules restrict any use of the information to criminally investigate or prosecute any alcohol or drug abuse patient.[facility] the event this information is protected by the Federal Confidentiality of Alcohol and Drug Abuse Patient Records regulations: The Federal rules restrict any use of the information to criminally investigate or prosecute any alcohol or drug abuse patient.[facility] the event this information is protected by the Federal Confidentiality of Alcohol and Drug Abuse Patient Records regulations: The Federal rules restrict any use of the information to criminally investigate or prosecute any alcohol or drug abuse patient.[facility] the event this information is protected by the Federal Confidentiality of Alcohol and Drug Abuse Patient Records regulations: The Federal rules restrict any use of the information to criminally investigate or prosecute any alcohol or drug abuse patient.[facility] the event this information is protected by the Federal Confidentiality of Alcohol and Drug Abuse Patient Records regulations: The Federal rules restrict any use of the information to criminally investigate or prosecute any alcohol or drug abuse patient.[facility] the event this information is protected by the Federal Confidentiality of Alcohol and Drug Abuse Patient Records regulations: The Federal rules restrict any use of the information to criminally investigate or prosecute any alcohol or drug abuse patient.[facility] the event this information is protected by the Federal Confidentiality of Alcohol and Drug Abuse Patient Records regulations: The Federal rules restrict any use of the information to criminally investigate or prosecute any alcohol or drug abuse patient.[facility] the event this information is protected by the Federal Confidentiality of Alcohol and Drug Abuse Patient Records regulations: The Federal rules restrict any use of the information to criminally investigate or prosecute any alcohol or drug abuse patient.[facility] the event this information is protected by the Federal Confidentiality of Alcohol and Drug Abuse Patient Records regulations: The Federal rules restrict any use of the information to criminally investigate or prosecute any alcohol or drug abuse patient.[facility] the event this information is protected by the Federal Confidentiality of Alcohol and Drug Abuse Patient Records regulations: The Federal rules restrict any use of the information to criminally investigate or prosecute any alcohol or drug abuse patient.[facility] the event this information is protected by the Federal Confidentiality of Alcohol and Drug Abuse Patient Records regulations: The Federal rules restrict any use of the information to criminally investigate or prosecute any alcohol or drug abuse patient.[facility] the event this information is protected by the Federal Confidentiality of Alcohol and Drug Abuse Patient Records regulations: The Federal rules restrict any use of the information to criminally investigate or prosecute any alcohol or drug abuse patient.[facility] the event this information is protected by the Federal Confidentiality of Alcohol and Drug Abuse Patient Records regulations: The Federal rules restrict any use of the information to criminally investigate or prosecute any alcohol or drug abuse patient.[facility] HospitalIn the event this information is protected by the Federal Confidentiality of Alcohol and Drug Abuse Patient Records regulations: The Federal rules restrict any use of the information to criminally investigate or prosecute any alcohol or drug abuse patient.[facility] HospitalIn the event this information is protected by the Federal Confidentiality of Alcohol and Drug Abuse Patient Records regulations: The Federal rules restrict any use of the information to criminally investigate or prosecute any alcohol or drug abuse patient.[facility] HospitalIn the event this information is protected by the Federal Confidentiality of Alcohol and Drug Abuse Patient Records regulations: The Federal rules restrict any use of the information to criminally investigate or prosecute any alcohol or drug abuse patient.[facility] HospitalIn the event this information is protected by the Federal Confidentiality of Alcohol and Drug Abuse Patient Records regulations: The Federal rules restrict any use of the information to criminally investigate or prosecute any alcohol or drug abuse patient.[facility] HospitalIn the event this information is protected by the Federal Confidentiality of Alcohol and Drug Abuse Patient Records regulations: The Federal rules restrict any use of the information to criminally investigate or prosecute any alcohol or drug abuse patient.[facility] HospitalIn the event this information is protected by the Federal Confidentiality of Alcohol and Drug Abuse Patient Records regulations: The Federal rules restrict any use of the information to criminally investigate or prosecute any alcohol or drug abuse patient.[facility] HospitalIn the event this information is protected by the Federal Confidentiality of Alcohol and Drug Abuse Patient Records regulations: The Federal rules restrict any use of the information to criminally investigate or prosecute any alcohol or drug abuse patient.[facility] HospitalIn the event this information is protected by the Federal Confidentiality of Alcohol and Drug Abuse Patient Records regulations: The Federal rules restrict any use of the information to criminally investigate or prosecute any alcohol or drug abuse patient.[facility] HospitalIn the event this information is protected by the Federal Confidentiality of Alcohol and Drug Abuse Patient Records regulations: The Federal rules restrict any use of the information to criminally investigate or prosecute any alcohol or drug abuse patient.[facility] HospitalIn the event this information is protected by the Federal Confidentiality of Alcohol and Drug Abuse Patient Records regulations: The Federal rules restrict any use of the information to criminally investigate or prosecute any alcohol or drug abuse patient.[facility] HospitalIn the event this information is protected by the Federal Confidentiality of Alcohol and Drug Abuse Patient Records regulations: The Federal rules restrict any use of the information to criminally investigate or prosecute any alcohol or drug abuse patient.[facility] HospitalIn the event this information is protected by the Federal Confidentiality of Alcohol and Drug Abuse Patient Records regulations: The Federal rules restrict any use of the information to criminally investigate or prosecute any alcohol or drug abuse patient.[facility] HospitalIn the event this information is protected by the Federal Confidentiality of Alcohol and Drug Abuse Patient Records regulations: The Federal rules restrict any use of the information to criminally investigate or prosecute any alcohol or drug abuse patient.[facility] HospitalIn the event this information is protected by the Federal Confidentiality of Alcohol and Drug Abuse Patient Records regulations: The Federal rules restrict any use of the information to criminally investigate or prosecute any alcohol or drug abuse patient.[facility] HospitalIn the event this information is protected by the Federal Confidentiality of Alcohol and Drug Abuse Patient Records regulations: The Federal rules restrict any use of the information to criminally investigate or prosecute any alcohol or drug abuse patient.[facility] HospitalIn the event this information is protected by the Federal Confidentiality of Alcohol and Drug Abuse Patient Records regulations: The Federal rules restrict any use of the information to criminally investigate or prosecute any alcohol or drug abuse patient.[facility] HospitalIn the event this information is protected by the Federal Confidentiality of Alcohol and Drug Abuse Patient Records regulations: The Federal rules restrict any use of the information to criminally investigate or prosecute any alcohol or drug abuse patient.[facility] HospitalIn the event this information is protected by the Federal Confidentiality of Alcohol and Drug Abuse Patient Records regulations: The Federal rules restrict any use of the information to criminally investigate or prosecute any alcohol or drug abuse patient.[facility] HospitalIn the event this information is protected by the Federal Confidentiality of Alcohol and Drug Abuse Patient Records regulations: The Federal rules restrict any use of the information to criminally investigate or prosecute any alcohol or drug abuse patient.[facility] HospitalIn the event this information is protected by the Federal Confidentiality of Alcohol and Drug Abuse Patient Records regulations: The Federal rules restrict any use of the information to criminally investigate or prosecute any alcohol or drug abuse patient.[facility] HospitalIn the event this information is protected by the Federal Confidentiality of Alcohol and Drug Abuse Patient Records regulations: The Federal rules restrict any use of the information to criminally investigate or prosecute any alcohol or drug abuse patient.[facility] HospitalIn the event this information is protected by the Federal Confidentiality of Alcohol and Drug Abuse Patient Records regulations: The Federal rules restrict any use of the information to criminally investigate or prosecute any alcohol or drug abuse patient.[facility] HospitalIn the event this information is protected by the Federal Confidentiality of Alcohol and Drug Abuse Patient Records regulations: The Federal rules restrict any use of the information to criminally investigate or prosecute any alcohol or drug abuse patient.[facility] HospitalIn the event this information is protected by the Federal Confidentiality of Alcohol and Drug Abuse Patient Records regulations: The Federal rules restrict any use of the information to criminally investigate or prosecute any alcohol or drug abuse patient.[facility] HospitalIn the event this information is protected by the Federal Confidentiality of Alcohol and Drug Abuse Patient Records regulations: The Federal rules restrict any use of the information to criminally investigate or prosecute any alcohol or drug abuse patient.[facility] HospitalIn the event this information is protected by the Federal Confidentiality of Alcohol and Drug Abuse Patient Records regulations: The Federal rules restrict any use of the information to criminally investigate or prosecute any alcohol or drug abuse patient.[facility] HospitalIn the event this information is protected by the Federal Confidentiality of Alcohol and Drug Abuse Patient Records regulations: The Federal rules restrict any use of the information to criminally investigate or prosecute any alcohol or drug abuse patient.[facility] HospitalIn the event this information is protected by the Federal Confidentiality of Alcohol and Drug Abuse Patient Records regulations: The Federal rules restrict any use of the information to criminally investigate or prosecute any alcohol or drug abuse patient.[facility] HospitalIn the event this information is protected by the Federal Confidentiality of Alcohol and Drug Abuse Patient Records regulations: The Federal rules restrict any use of the information to criminally investigate or prosecute any alcohol or drug abuse patient.[facility] HospitalIn the event this information is protected by the Federal Confidentiality of Alcohol and Drug Abuse Patient Records regulations: The Federal rules restrict any use of the information to criminally investigate or prosecute any alcohol or drug abuse patient.[facility] HospitalIn the event this information is protected by the Federal Confidentiality of Alcohol and Drug Abuse Patient Records regulations: The Federal rules restrict any use of the information to criminally investigate or prosecute any alcohol or drug abuse patient.[facility] HospitalIn the event this information is protected by the Federal Confidentiality of Alcohol and Drug Abuse Patient Records regulations: The Federal rules restrict any use of the information to criminally investigate or prosecute any alcohol or drug abuse patient.[facility] HospitalIn the event this information is protected by the Federal Confidentiality of Alcohol and Drug Abuse Patient Records regulations: The Federal rules restrict any use of the information to criminally investigate or prosecute any alcohol or drug abuse patient.[facility] HospitalIn the event this information is protected by the Federal Confidentiality of Alcohol and Drug Abuse Patient Records regulations: The Federal rules restrict any use of the information to criminally investigate or prosecute any alcohol or drug abuse patient.[facility] HospitalIn the event this information is protected by the Federal Confidentiality of Alcohol and Drug Abuse Patient Records regulations: The Federal rules restrict any use of the information to criminally investigate or prosecute any alcohol or drug abuse patient.[facility] HospitalIn the event this information is protected by the Federal Confidentiality of Alcohol and Drug Abuse Patient Records regulations: The Federal rules restrict any use of the information to criminally investigate or prosecute any alcohol or drug abuse patient.[facility] HospitalIn the event this information is protected by the Federal Confidentiality of Alcohol and Drug Abuse Patient Records regulations: The Federal rules restrict any use of the information to criminally investigate or prosecute any alcohol or drug abuse patient.[facility] HospitalIn the event this information is protected by the Federal Confidentiality of Alcohol and Drug Abuse Patient Records regulations: The Federal rules restrict any use of the information to criminally investigate or prosecute any alcohol or drug abuse patient.[facility] HospitalIn the event this information is protected by the Federal Confidentiality of Alcohol and Drug Abuse Patient Records regulations: The Federal rules restrict any use of the information to criminally investigate or prosecute any alcohol or drug abuse patient.[facility] HospitalIn the event this information is protected by the Federal Confidentiality of Alcohol and Drug Abuse Patient Records regulations: The Federal rules restrict any use of the information to criminally investigate or prosecute any alcohol or drug abuse patient.[facility] HospitalIn the event this information is protected by the Federal Confidentiality of Alcohol and Drug Abuse Patient Records regulations: The Federal rules restrict any use of the information to criminally investigate or prosecute any alcohol or drug abuse patient.[facility] HospitalIn the event this information is protected by the Federal Confidentiality of Alcohol and Drug Abuse Patient Records regulations: The Federal rules restrict any use of the information to criminally investigate or prosecute any alcohol or drug abuse patient.[facility] HospitalIn the event this information is protected by the Federal Confidentiality of Alcohol and Drug Abuse Patient Records regulations: The Federal rules restrict any use of the information to criminally investigate or prosecute any alcohol or drug abuse patient.[facility] Care Teams (unrecognized sec tion and content) Side Boss Relationship Specialty Start Date End Date Francisco Javier Osorio MD [address] [place] [address] PCP - General Internal Medicine 03/01/18 Side Boss Relationship Specialty Start Date End Date Francisco Javier Osorio MD [address] [place] [address] PCP - General Internal Medicine 03/01/18 Side Boss Relationship Specialty Start Date End Date Francisco Javier Osorio MD [address] [place] [address] PCP - General Internal Medicine 03/01/18 Side Boss Relationship Specialty Start Date End Date Francisco Javier Osorio MD [address] [place] [address] PCP - General Internal Medicine 03/01/18 Side Boss Relationship Specialty Start Date End Date Francisco Javier Osorio MD [address] [place] [address] PCP - General Internal Medicine 03/01/18 Side Boss Relationship Specialty Start Date End Date Francisco Javier Osorio MD [address] [place] [address] PCP - General Internal Medicine 03/01/18 Side Boss Relationship Specialty Start Date End Date Francisco Javier Osorio MD [address] [place] [address] PCP - General Internal Medicine 03/01/18 Side Boss Relationship Specialty Start Date End Date Francisco Javier Osorio MD [address] [place] [address] PCP - General Internal Medicine 03/01/18 Side Boss Relationship Specialty Start Date End Date Francisco Javier Osorio MD [address] [place] [address] PCP - General Internal Medicine 03/01/18 Side Boss Relationship Specialty Start Date End Date Jake Conrad MD [address] [place], [place] [address] PCP - General Family Medicine 02/14/13 Side Boss Relationship Specialty Start Date End Date Francisco Javier Osorio MD [address] [place] [address] PCP - General Internal Medicine 03/01/18 Side Boss Relationship Specialty Start Date End Date Francisco Javier Osorio MD [address] [place] [address] PCP - General Internal Medicine 03/01/18 Side Boss Relationship Specialty Start Date End Date Francisco Javier Osorio MD [address] [place] [address] PCP - General Internal Medicine 03/01/18 Side Boss Relationship Specialty Start Date End Date Francisco Javier Osorio MD [address] [place] [address] PCP - General Internal Medicine 03/01/18 Side Boss Relationship Specialty Start Date End Date Francisco Javier Osorio MD [address] [place] [address] PCP - General Internal Medicine 03/01/18 Side Boss Relationship Specialty Start Date End Date Francisco Javier Osorio MD [address] [place] [address] PCP - General Internal Medicine 03/01/18 Side Boss Relationship Specialty Start Date End Date Francisco Javier Osorio MD [address] [place] [address] PCP - General Internal Medicine 03/01/18 Side Boss Relationship Specialty Start Date End Date Francisco Javier Osorio MD [address] [place] [address] PCP - General Internal Medicine 03/01/18 Side Boss Relationship Specialty Start Date End Date Francisco Javier Osorio MD [address] [place] [address] PCP - General Internal Medicine 03/01/18 Side Boss Relationship Specialty Start Date End Date Francisco Javier Osorio MD [address] [place] [address] PCP - General Internal Medicine 03/01/18 Side Boss Relationship Specialty Start Date End Date Francisco Javier Osorio MD [address] [place] [address] PCP - General Internal Medicine 03/01/18 Side Boss Relationship Specialty Start Date End Date Francisco Javier Osorio MD [address] [place] [address] PCP - General Internal Medicine 03/01/18 Side Boss Relationship Specialty Start Date End Date Francisco Javier Osorio MD [address] [place] [address] PCP - General Internal Medicine 03/01/18 Side Boss Relationship Specialty Start Date End Date Francisco Javier Osorio MD [address] [place] [address] PCP - General Internal Medicine 03/01/18 Side Boss Relationship Specialty Start Date End Date Francisco Javier Osorio MD [address] [place] [address] PCP - General Internal Medicine 03/01/18 Side Boss Relationship Specialty Start Date End Date Francisco Javier Osorio MD [address] [place] [address] PCP - General Internal Medicine 03/01/18 Side Boss Relationship Specialty Start Date End Date Francisco Javier Osorio MD [address] [place] [address] PCP - General Internal Medicine 03/01/18 Side Boss Relationship Specialty Start Date End Date Francisco Javier Osorio MD [address] [place] [address] PCP - General Internal Medicine 03/01/18 Side Boss Relationship Specialty Start Date End Date Francisco Javier Osorio MD [address] [place] [address] PCP - General Internal Medicine 03/01/18 Side Boss Relationship Specialty Start Date End Date Francisco Javier Osorio MD [address] [place] [address] PCP - General Internal Medicine 03/01/18 Side Boss Relationship Specialty [place] [address] [place] [address] PCP - General Internal Medicine 03/01/18 Side Boss Relationship Specialty Start Date End Date Francisco Javier Osorio MD [address] [place] [address] PCP - General Internal Medicine 03/01/18 Side Boss Relationship Specialty Start Date End Date Jake Conrad MD [address] [place], [place] [address] PCP - General Family Medicine 02/14/13 Side Boss Relationship Specialty Start Date End Date Francisco Javier Osorio MD [address] [place] [address] PCP - General Internal Medicine 03/01/18 Side Boss Relationship Specialty Start Date End Date Francisco Javier Osorio MD [address] [place] [address] PCP - General Internal Medicine 03/01/18 Side Boss Relationship Specialty Start Date End Date Francisco Javier Osorio MD [address] [place] [address] PCP - General Internal Medicine 03/01/18 Side Boss Relationship Specialty Start Date End Date Francisco Javier Osorio MD [address] [place] [address] PCP - General Internal Medicine 03/01/18 Side Boss Relationship Specialty Start Date End Date Francisco Javier Osorio MD [address] [place] [address] PCP - General Internal Medicine 03/01/18 Side Boss Relationship Specialty Start Date End Date Francisco Javier Osorio MD [address] [place] [address] PCP - General Internal Medicine 03/01/18 Side Boss Relationship Specialty Start Date End Date Francisco Javier Osorio MD [address] [place] [address] PCP - General Internal Medicine 03/01/18 Side Boss Relationship Specialty Start Date End Date Francisco Javier Osorio MD [address] [place] [address] PCP - General Internal Medicine 03/01/18 Side Boss Relationship Specialty Start Date End Date Francisco Javier Osorio MD [address] [place] [address] PCP - General Internal Medicine 03/01/18 Side Boss Relationship Specialty Start Date End Date Francisco Javier Osorio MD [address] [place] [address] PCP - General Internal Medicine 03/01/18 Side Boss Relationship Specialty Start Date End Date Francisco Javier Osorio MD [address] [place], [place] [address] PCP - General Internal Medicine 03/01/18 Side Boss Relationship Specialty Start Date End Date Francisco Javier Osorio MD [address] [place], [place] [id number] PCP - General Internal Medicine 03/01/18 Side Boss Relationship Specialty Start Date End Date Francisco Javier Osorio MD [address] [place] [address] PCP - General Internal Medicine 03/01/18 Reason for Visit (unrecogniz ed section and content) Reason Comments PT Re-eval Specialty Diagnoses / Procedures Referred By Marian dash Referred To Contact [facility] Diagnoses Chronic pain of left ankle Procedures CONSULT TO PHYSICAL THERAPY PHYSICAL THERAPY EVALUATION HIGH COMPLEX 45 MINS Aston Mcmahan [address] [place] [address] [facility] [place] [address] [place] [address] Referral ID Status Reason Start Date Expiration Date Visits Requested Visits Authorized [id number] Authorized Auto-Generat ed Referral 04/11/2023 04/10/2024 20 20 Reason Comments Physical Therapy Reason Comments Patient Update Reason Comments Cough Reason Comments Diarrhea Reason [...] Ear Infection Left ear infection o n 8/10 at [facility] was given Amoxicillin - now feels that it is possibly in both - dx with COVID same day. Reason Comments ER F/U Reason Comments Consult LLQ abdominal pain/ Rectal bleeding Specialty Diagnoses / Procedures Referred By Marian t Referred To Contact General Surgery Diagnoses Abdominal pain, left lower quadrant Rectal bleeding Procedures CONSULT TO GENERAL SURGERY OFFICE/OUTPATIENT [facility] HIGH MDM 60-74 MINUTES Francisco Javier Osorio MD [address] [place] [address] Referral ID Status Reason Start Date Expiration Date V isits Requested Visits Authorized [id number] Closed PCP Requested Referral 01/31/2023 01/31/2024 1 1 Reason Comments Information Reason Comments Radiology US Specialty Diagnoses / Procedures Referred By Marian dash Referred To Contact [facility] Diagnoses Subareolar mass of left breast Procedures US BREAST LTD LEFT US BREAST UNI REAL TIME WITH IMAGE LIMITED Francisco Javier Osorio MD [address] [place] [address] [facility] [address] [place] [address] Referral ID Status Reason Start Date Expiration Date V isits Requested Visits Authorized [id number] Closed Auto-Generate d Referral 01/31/2023 03/01/2024 1 1 Reason Comments Follow Up Review colonoscopy p athology. Reason Comments Blood Pressure Imm/Inj Hep A/B Specialty Diagnoses / Procedures Referred By Marian dash Referred To Contact Radiology / [facility] Diagnoses Other infective acute otitis externa of both ears Acute suppurative otitis media of both ears without spontaneous rupture of tympanic membranes, recurrence not specified Acute non-recurrent frontal sinusitis Other infective acute otitis externa of both ears [H60.393]; Acute suppurative otitis media of both ears without spontaneous rupture of tympanic membranes, recurrence not specified [H66.003]; Acute non-recurrent frontal sinusitis [J01.10] Procedures RADIOLOGIC EXAM CHEST 2 VIEWS XR CHEST Francisco Javier Osorio MD [address] [place] [address] [facility] [address] [place] [address] Referral ID Status Reason Start Date Expiration Date V isits Requested Visits Authorized [id number] Waiting for Response 06/15/2023 08/14/2023 1 1 Reason Comments stomach redness and hot Reason Onset Date Comments Refill Request 07/27/2023 Reason Comments Follow Up F/u colonoscopy 11/0 12/2022 - schedule surgery Reason Comments Anesthesia Consult Reason Onset Date Comments Refill Request 09/06/2023 Reason Comments Post Op Surgery 08/10/23, op r eport in EPIC Reason Comments New Pain Reason Comments Patient Question Reason Comments Yearly Exam F/U 6 months Reason Comments New Patient Evaluation Specialty Diagnoses / Procedures [facility] Neu[facility] Diagnoses History of seizure Procedures CONSULT TO NEUROLOGY OFFICE/OUTPATIENT NEW HIGH MDM 60 MINUTES Francisco Javier Osorio MD [address] [place] [id number] Referral ID Status Reason Start Date Expiration Date V isits Requested Visits Authorized [id number] Closed PCP Requested Referral 10/28/2023 10/27/2024 1 1 Reason Comments PT Eval Reason Comments Pain Reason Comments Ear Problem left ear ringing and hard to hear, some nasal congestion and drainage x 3 days Reason Comments Patient Question Appointment Reason Comments Consult Colonoscopy Specialty Diagnoses / Procedures Referred By Marian t Referred To Contact Radiology / [facility] Diagnoses xray main lobby Procedures XR GENERAL 7 Catarina Roberts M, TEST RACK OPERATOR.SENIOR CONTRACT SPECIALIST [address] [place] [address] [facility] [address] [place] [id number] Referral ID Status Reason Start Date Expiration Date V isits Requested Visits Authorized [id number] Closed Patient Cleared - INN Insurance Found 07/01/2020 07/01/2020 1 1 Reason Comments Pressure In Ear(s) Reason Comments Ear Problem Reoccurring left ear infections and pressure Specialty Diagnoses / Procedures [facility] To Contact Ent - Otolaryngology Diagnoses Other infective acute otitis externa of both ears Acute suppurative otitis media of both ears without spontaneous rupture of tympanic membranes, recurrence not specified Acute non-recurrent frontal sinusitis Procedures CONSULT TO ENT OFFICE/OUTPATIENT NEW HIGH MDM 60 MINUTES Edel Perdue APRN.WAREHOUSE ASSOCIATE [address] [place] [address] Referral ID Status Reason Start Date Expiration Date V isits Requested Visits Authorized [id number] Closed PCP Requested Referral 06/07/2023 06/06/2024 1 1 Reason Comments Pre-Op Visit Specialty Diagnoses / Procedures Referred By Marian dash Referred To Contact Diagnoses Achilles tendinitis of left lower extremity Pre-op testing Procedures REFER TO [facility] PREOPERATIVE OPTIM[facility]ATION OFFICE/OUTPATIENT [facility] 60 MINUTES Carmen Rojas MD [address] [place] [id number] Referral ID Status Reason Start Date Expiration Date V isits Requested Visits Authorized [id number] Closed PCP Requested Referral 12/13/2023 12/12/2024 1 1 Reason Comments Consult Reason Comments Vomiting Constipation FOR RECORDS PERTAINING TO PATIENTS WHO ARE [...] BE BASED ON THE PRIMARY CLINICAL RECORDS. [employer] provides no warranty or guarantee of the accuracy or completeness of information in this document.
[2024-02-07 05:18] LABS: Absolute Lymphocyte Count 1.22 X10^3/uL (0.83-4.51); Absolute Neutrophil Count 7.7 X10^3/uL (2.0-7.7); Basophil# 0.03 X10^3/uL; Basophil% 0.3 % (0-1); Eosinophil# 0.03 X10^3/uL; Eosinophils% 0.3 % (0-5); Hematocrit 45.1 % (40-54); Hemoglobin 15.4 g/dL (13.0-16.5); Lymphocyte # 1.22 X10^3/ul (0.83-4.51); Lymphocyte % 12.9 % (19-41); Mean Corp Hgb Conc 34.1 g/dL (32-36); Mean Corpuscular Hgb 29.4 pg (27.0-32.0); Mean Corpuscular Volume 86.1 fL (80-94); Monocyte# 0.39 X10^3/uL; Monocyte% 4.1 % (0-10); NRBC Flagged by Analyzer 0 % (0-5); Neutrophil # 7.73 X10^3/uL (2.7-7.7); Neutrophil % 81.9 % (47-70); Platelet Count 313 K/mm3 (150-450); RBC Distribution Width CV 12.5 % (11.6-14.6); RBC Distribution Width SD 38.9 fl (35.1-43.9); Red Blood Count 5.24 M/mm3 (4.6-6.2); White Blood Count 9.5 K/mm3 (4.4-11.0)
[2024-02-07] MEDS: Morphine 4 MG/ML Syringe IV (05:35)
[2024-02-07 05:37] LABS: ALB/GLOB Ratio 0.7 RATIO (0.9-2.4); AST(SGOT) 14 U/L (15-37); Alanine Aminotransfer ALT/SGPT 38 U/L (16-61); Albumin, Serum 3.3 g/dL (3.2-5.0); Alkaline Phosphatase 70 U/L (45-117); Anion Gap 6 (5-15); BUN 21 mg/dL (7-18); BUN/Creat Ratio 20.8 RATIO (10-20); Calcium,Total 9.1 mg/dL (8.5-10.1); Chloride 105 mmol/L (98-107); Creatinine, Serum 1.01 mg/dL (0.70-1.30); EST Glomerular Filtration Rate 84 mL/min (>60); Est Glom Filt Rate - Afr Amer 101 mL/min (>60); Estimated Creatinine Clearance 105.45 ml/min; Globulin 4.5 g/dL (2.2-4.2); Glucose 148 mg/dL (74-106); Lipase 16 U/L (13-75); Potassium 3.8 mmol/L (3.5-5.1); Protein, Total 7.8 g/dL (6.4-8.2); Sodium Level 136 mmol/L (136-145)
[2024-02-07 06:26] VITALS: BP 155/101; PULSE 53; RESP 16; O2SAT 95
[2024-02-07 06:55] VITALS: BP 145/92; PULSE 53; RESP 16; TEMP 36.9; O2SAT 95
== END 2024-02-07 06:55 | disposition home or self-care (01) ==
PROVIDERS: Emergency Provider Emergency Medicine; PCP Internal Medicine; Visit Provider Emergency Medicine
DX: R10.9 Unspecified abdominal pain (principal); K59.03 Drug induced constipation; T40.605A Adverse effect of unspecified narcotics, initial encounter; R11.2 Nausea with vomiting, unspecified; N30.90 Cystitis, unspecified without hematuria; G47.33 Obstructive sleep apnea (adult) (pediatric); Z79.899 Other long term (current) drug therapy
CPT/HCPCS: 74177; 80053; 83690; 85025; 96374; 96375; 99284; A4216; J2405; J3490

== ENCOUNTER 2024-06-18 08:00 | Outpatient (RCR) | payer OTHER, SELFPAY ==
--- NOTE | 2024-06-18 10:15 | BH.SGPN.GN ---
Behaviors/Verbalizations/Mental Status: []Client alert and oriented, neatly dressed. Eye contact good. Motor activity appropriate. Speech within normal limits. Affect congruent, mood motivated and depressed. Thoughts linear, logical, no signs of hallucinations or delusions. Client Response/Progress/Benefit: [] Pt was an active participant AEB taking notes and engaging in group activity. Connected with the topic of pitfalls and listened to group discussion on barriers that prevent from choosing a healthier path to mental wellness. Group worked together to identify examples of personal pitfalls. These examples included; shutting down, not asking for help, negative thinking patterns, avoidance, and isolation. Pt benefited from group as Pt learned to better identify potential barriers to improving mental health symptoms. Pt will continue PHP tx to prevent decompensation, maintain safety, and increase self-compassion. Narrative Note: []
--- NOTE | 2024-06-18 11:15 | BH.SGPN.GN ---
Behaviors/Verbalizations/Mental Status: []Client alert and oriented, casually dressed and groomed. Eye contact good. Motor activity appropriate. Speech within normal limits. Affect congruent, mood anxious and depressed. Thoughts linear, logical, no signs of hallucinations or delusions. Client Response/Progress/Benefit: [] Pt receptive of session, engaged throughout AEB Pt actively listening and contributing to discussion as well as taking notes.? Pt participated in the experiential activity and did well to communicate ideas with peers and manage emotions. Pt attentive as group processed how the emotions and perspective of the group impacted the activity. Group worked together to identify different coping skills to help manage pitfalls. Pt identified a pitfall they struggle with as forcing himself to remain in an environment he knows is toxic for himself. Pt plans to work on their pitfall by taking small steps to begin being honest with himself and reminding himself he needs to feel safe to thrive. Benefited from identifying personal pitfalls and strategies to overcome these pitfalls. Pt will continue PHP tx to prevent decompensation, improve daily functioning, and gain skills to improve mood stability. Narrative Note: []
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
--- NOTE | 2024-06-19 09:00 | BH.SGPN.GN ---
Behaviors/Verbalizations/Mental Status: [] Eye contact is good. Motor activity is appropriate. Appearance is casual. Speech is Appropriate. Mood is depressed and anxious. Affect is congruent. Thoughts are linear and logical. No evidence of psychosis. Reviewed daily check in sheet and pt reports suicidal ideations as 2/5 but denies any plan or intent. This is consistent with pt current baseline Client Response/Progress/Benefit: [] Pt was an active participant in group discussions. Attentive. Daily symptom tracker notes 5/5 for depression and 4/5 for anxiety. Did well to identify 2 mental health wins including practicing more self-compassion with himself in the last 2 days. Reports feelings of guilt, shame, and embarrassment surrounding the events leading up to IOP admission. Noted feeling upset with himself for missing the warning signs that his mental health was beginning to struggle prior to point of crisis. Pt described an additional win as discussing this with his yesterday afternoon and found him to be very supportive. Shared trying to focus on getting back into more consistent self-care as well, stating that he cooked dinner last night. Receptive of and appearing to have Benefited from group support, encouragement, and feedback. Will continue in PHP to prevent decompensation/rehospitalization, improve mood stability, and increase healthy coping. Narrative Note: []
--- NOTE | 2024-06-19 10:15 | BH.SGPN.GN ---
Behaviors/Verbalizations/Mental Status: [] Client alert and oriented, casually dressed and groomed. Eye contact good. Motor activity appropriate. Speech within normal limits. Affect congruent, mood anxious and depressed. Thoughts linear, logical, no signs of hallucinations or delusions. Client Response/Progress/Benefit: [] Pt was an attentive and active participant, AEB taking notes and providing input in group discussion. Attentive during psychoeducation. Pt engaged during interactive discussion in which the group defined self-care and discussed its benefits. Group discussed barriers and benefits to self-care. Identified benefits as being more productive, feeling more grounded, feeling happier, decreased anxiety, better quality of life, and increased resilience. Pt participated in small groups where they worked to identify and challenged common self-care ?myths?. Benefited from increased awareness of self-care, its benefits, and the consequences of not utilizing self-care strategies. Will continue PHP to maintain safety, quirino mood, and improve functioning to return to work. Narrative Note: []
--- NOTE | 2024-06-19 11:15 | BH.SGPN.GN ---
Behaviors/Verbalizations/Mental Status: []Client alert and oriented, neatly dressed and groomed. Eye contact good. Motor activity appropriate. Speech within normal limits. Affect congruent, mood anxious and euthymic. Thoughts linear, logical, no signs of hallucinations or delusions. Client Response/Progress/Benefit: [] Pt taking notes during discussion reviewing different areas of self-care and completing self-assessment of current self-care, as well as providing input throughout discussion. Did well to complete self-care self-assessment worksheet. Pt identified how pt is doing in each category and what self-care activities pt wants to start using. Pt selected emotional and psychological self-care to begin practicing more consistently. Pt plans to do this by ?being creative and making sure I have psychological safety in relationships.? Appeared to benefit from completing the self-care evaluation and gaining insights into current self-care practices, as well as identifying areas in which pt would like to improve upon. Pt will continue PHP tx to prevent decompensation, maintain safety, and gain healthy coping skills. ?? Narrative Note: []
--- NOTE | 2024-06-19 12:10 | BH.MDN_ITS ---
Multi-Disciplinary Note Note 60-min Individual: Time Started:: 12:10 Date: 06/19/24 Purpose of session/treatment goals addressed:: Reviewed current progress and symptoms. Used sessions to begin to identify treatment plan goals. Eye Contact:: Good Motor Activity:: Appropriate Appearance:: Neat Speech:: Appropriate Mood:: Irritable and Depressed Affect:: Congruent Thoughts:: Linear, Logical and No evidence of hallucinations/delusions noted Staff Interventions:: goal setting Client Response:: Met with pt to begin to identify goals for PHP level of care. Pt had a list with him that he developed yesterday with spouse. I want to figure out how I got here again. Pt was in [facility] level of care several years ago. Reports being scared about how fast he decompensated and became suicidal with a plan. He is also conflicted on several decisions he has to make regarding his employer as job was primary trigger to decompensation and distress. He discussed wanting to be able to set boundaries, not people-pleasing, and how to say no. Risks/Concerns:: No risks or concerns noted. Daily symptom tracker noted 2/5 for suicidal ideations and 0/5 intent. Pt reports being grateful that he never followed through with plan last week. Thoughts are passive and more geared towards survival ambivalence. Denies active SI, plan, or intent. Does not present as imminent danger to himself. Protective factors. Future-oriented. Will continue to monitor SI on daily check-in sheets. Progress Toward Goals/Plan:: Progress noted since last week. Feels that PHP and being off work has helped distraction and remind my of healthy coping skills. Benefiting also from peer support. Due to several significant psychosocial stressors in the past week pt reports continued ruminations and highly intense emotions. He is taking FMLA from work with the hopes to stablize before before determining his future at current employer. Will continue in PHP to maintain safety, prevent decompensation, improve functioning, and stabilize mood. Time Stopped:: 13:00
--- NOTE | 2024-06-20 08:55 | BH.MTP ---
Master Treatment Plan Patient Information Program Physician:: Dr. Brandt Primary Therapist:: JONEL Urias Estimated LOS Estimated LOS (in weeks):: 1
--- NOTE | 2024-06-20 09:00 | BH.SGPN.GN ---
Behaviors/Verbalizations/Mental Status: [] Eye contact is good. Motor activity is appropriate. Appearance is casual. Speech is Appropriate. Mood is anxious and depressed. Affect is congruent. Thoughts are linear and logical. No evidence of psychosis. Reviewed daily check in sheet and no reports of suicidal ideations or intent. Client Response/Progress/Benefit: [] Pt was an active participant in group discussions. Attentive. Daily symptom tracker notes 08/13 for depression and 08/13 for anxiety. Did well to identify 2 mental health wins including being able to do something kind and supportive for his 's grandmother by bringing her busch. Shared that despite his own mental health struggles, it was important to bring a little comfort to her given her recent admission into hospice. Pt identified an additional win as getting time to listen to his audio book on the way home from visiting her. Shared this as a small comfort in the midst of a very tough time for him. Stressor noted as people at work not respecting his boundaries and need for space at this time. Shared that they continue to text him despite pt communicating needing distance or not responding. Did well to identify the importance of continuing to maintain this boundary despite attempts for him to break it. Benefited from group support, encouragement, and feedback. Will continue in PHP to prevent decompensation, promote mood stability, and increase healthy coping. Narrative Note: []
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
[2024-06-20 09:14] VITALS: BP 165/95; PULSE 84
--- NOTE | 2024-06-20 10:10 | BH.SGPN.GN ---
Behaviors/Verbalizations/Mental Status: [] Eye contact is good. Motor activity is appropriate. Appearance is casual. Speech is Appropriate. Mood is anxious and depressed. Affect is congruent. Thoughts are linear and logical. No evidence of psychosis. Client Response/Progress/Benefit: [] Pt was engaged and participating throughout, providing input and taking notes. Attentive during psychoeducation on anxiety and cognitive triangle. Participated in an interactive discussion on defining anxiety and identifying cognitive and physiological symptoms of anxiety. The group discussed the role of anxiety on isolation, avoidance, and overall functioning. Pt identified their physical/physiological signs of anxiety which includes: tightness and headache. Benefited from increased awareness and insight on anxiety and its impact. Will continue in PHP to prevent decompensation,maintain safety,, and increase healthy coping skills. Narrative Note: []
--- NOTE | 2024-06-20 11:10 | BH.SGPN.GN ---
Behaviors/Verbalizations/Mental Status: []Pt alert and oriented, casually dressed and groomed. Eye contact good. Motor activity appropriate. Speech within normal limits. Affect congruent, mood anxious and dysthymic. Thoughts linear, logical, no signs of hallucinations or delusions. Client Response/Progress/Benefit: [] Pt was an active participant AEB pt providing input and listening attentively to peers. Attentive during psychoeducation on mindfulness coping skills and their impact on reducing anxiety and improving overall mental health wellness. Group was able to identify self-soothing and mind-based coping skills which included: 5-senses, meditation, deep breathing, TIPP, thought challenging, categories, and progressive muscle relaxation. Pt also participated with peers in practicing mindfulness skills in session including deep breathing. Pt would like to work on art and cooking to manage anxiety. Appeared to benefit from increasing repertoire of anxiety reduction skills. Pt will continue PHP to promote healthy coping skills, challenge negative thoughts, and prevent decompensation.
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
--- NOTE | 2024-06-20 13:16 | BH.DR.ITP ---
Initial Treatment Plan Patient Information Visit Information: ADMISSION DATE: EXPECTED LOS: 4-6 weeks Problems/Symptoms Problem #1:: Depression Symptom:: Sadness, fatigue, decreased concentration, hopelessness, guilt, passive thoughts of , recent suicidal ideation Problem #2:: Anxiety Symptom:: Worry, rumination, panic attacks
--- NOTE | 2024-06-20 15:07 | BH.MDN ---
Multi-Disciplinary Note Note 60-min Individual: Time Started:: 12:05 Date: 06/20/24 Purpose of session/treatment goals addressed:: Purpose of session was to solidify treatment goals and start exploration of what led pt to recent mental health decline. Eye Contact:: Good Motor Activity:: Appropriate Appearance:: Neat Speech:: Appropriate Mood:: Anxious and Depressed Affect:: Full Thoughts:: Linear, Logical and No evidence of hallucinations/delusions noted Staff Interventions:: thought challenging, CBT techniques, mindfulness skills, rapport building, strengths perspective, goal setting and taught coping skills Client Response:: Client stated he has been reading about about working with narcissist and in the book it mentioned have sometimes individuals can experience [place] syndrome. Client reported is planning to spiral because he is now wondering if while he was at his workplace if he was experiencing [place] syndrome with his [employer] OF [employer]. Client stated yesterday was tougher because his boss reached out and client had blocked the boss number so that he went in received text while being on FMLA. Client stated this boss then texted client's to check in to make sure that client was doing okay. Client reported he is feeling guilty because the situation with work is now putting his in to the middle of it. Client stated on one hand he does not feel like he needs to explain to his boss why he is not at work right now because he feels like his boss gaslight him into trying to stay longer even though the boss knew client was feeling bullied and being treated poorly by the [employer]. Client reported at one point when he feels healthier he wants to address the situation with his boss but at this time feels like he needs to maintain a boundary and not communicate with others from his workplace while he is taking FMLA. Client stated he has been grappling with the idea of whether he should return back to his work place after being off FMLA. Client stated the thought of having to return to work did trigger passive thoughts of yesterday evening. Client stated his does not want client to return back to his work place because client's does not believe this workplace is a healthy position for client. Therapist encouraged client to allow himself to focus on the present moment in what he wants to get out of treatment because he does not have to make any decisions today about work. Client stated something he really wants to explore is how did I get here. Client reported he feels slightly embarrassed and guilty that he did not see himself starting to decline prior to getting to a place where he is having suicidal thoughts again. Client reported he thought he had the skills they learned previously when he was in IOP but is beating himself up for not catching the warning signs. Client receptive to assistance and thought challenging his negative thought patterns and his should statements. Client recognizes he started declining after coming back from his FMLA while off for surgery. Client stated he is not exactly sure what he did but he believes he must and did something that upset the [employer] and led to the [employer] being done with me. Client stated in the 3 years he has been at this position he has witnessed this happen to numerous coworkers and each person the DIRECT[employer] is done with ends up quitting the job. Client agreeable it would be helpful throughout the program to start making some list of, and warning signs that he started to decline and a list of red flags at work places. Client and therapist discussed importance of client taking time to be more present in the moment and take a step back from reading and listening to self-help books/podcasts. Therapist encouraged client to be more in the moment the rest of today. Risks/Concerns:: Client reported passive thoughts of last night. Client denies current suicidal thoughts, plan, or intention. Feels able to maintain safety. Client has a safety plan. Client denies access to firearms. Client states he does not want to . Progress Toward Goals/Plan:: Decompensation noted with client reporting having passive thoughts of last night. Client able to work through the passive thoughts of . Client struggling with what to do about his work situation once he is off FMLA. Client has been spending significant amount of time reading and listening to self-help books/podcasts. Therapist and eboni discussed how it can be helpful to have times to focus on self-help material, but there is also value in taking time to be present in the moment. Client agreed this is something that could be helpful for him to focus on. Client stated he can fall in the trap of over pathologizing normal behavior as problematic due to his constant listening and reading of self-help material. Plan is for client to continue PHP to increase use of healthy coping skills, improve being in the moment, and prevent decompensation. Time Stopped:: 13:05
--- NOTE | 2024-06-21 09:05 | BH.SGPN.GN ---
Behaviors/Verbalizations/Mental Status: [] Pt alert and oriented, neatly dressed and groomed. Eye contact good. Motor activity appropriate. Speech within normal limits. Affect congruent, mood euthymic. Thoughts linear, logical, no signs of hallucinations or delusions. Reviewed pt?s symptom tracker, no risk for suicidal ideation, plan, or intent 06/21/24. Client Response/Progress/Benefit: []Pt was an active participant in group discussions. Attentive. Able to identify mental health wins including cooking dinner last night and going through some of his work things and organizing them. Pt's stressor today is responses from the people at work. Pt stated feeling accepting this morning. Pt's work stress is a major contributor for pt's PHP admission. Pt receptive to feedback from peers which pt reported was helpful. Progress noted. Benefited from group support, encouragement, and feedback. Will continue in PHP tx to prevent decompensation, increase distress tolerance skills, and improve daily functioning. Narrative Note: []
--- NOTE | 2024-06-21 10:15 | BH.SGPN.GN ---
Behaviors/Verbalizations/Mental Status: [] Eye contact is good. Motor activity is appropriate. Appearance is casual. Speech is Appropriate. Mood is anxious and depressed. Affect is congruent. Thoughts are linear and logical. No evidence of psychosis Client Response/Progress/Benefit: [] Pt engaged in session AEB listening attentively to others and providing input throughout. Pt engaged in activity, able to connect how it can be uncomfortable and difficult to practice acceptance when situations are out of one?s own control. Worked with peer group to define acceptance and identify the benefits that acceptance can bring. Benefits included; reduce stuckness, reduced stress, helps one to focus on situations we can change, and decreased negative self-talk. Seemed to benefit from increased awareness of the meaning as well as the importance of acceptance. Will continue in PHP to prevent decompensation, stabilize mood, maintain safety, and improve functioning to return to work. Narrative Note: []
--- NOTE | 2024-06-21 11:15 | BH.SGPN.GN ---
Behaviors/Verbalizations/Mental Status: []Pt alert and oriented, casually dressed and groomed. Eye contact fair. Motor activity appropriate. Speech within normal limits. Affect congruent, mood depressed, anxious. Thoughts linear, logical, no signs of hallucinations or delusions. Client Response/Progress/Benefit: [] Pt responded well to session AEB taking notes and contributing to discussion throughout. Pt engaged as group continued discussion on acceptance and the mental health benefits of practicing acceptance. Pt and peers identified what makes acceptance challenging and pt completed a self-reflection exercise on what is hard to accept in pt's life. Pt identified something that is currently hard to accept that his job is no longer healthy for him. Client stated by not accepting this it leads to feeling helpless, weak, and as though he has failed. Group identified strategies to increase acceptance. Pt noted wanting to work on focusing on what is in his control to make a plan for his future. Pt appeared to benefit from gaining insight and learning strategies to increase acceptance. Pt will continue PHP tx to improve view of self, increase mood stability, and prevent decompensation. Narrative Note: []
--- NOTE | 2024-06-21 16:13 | BH.MDN_ITS ---
Multi-Disciplinary Note Note 60-min Individual: Time Started:: 12:07 Date: 06/21/24 Purpose of session/treatment goals addressed:: Purpose of session was to address goals 1 and 2 from [facility]. Eye Contact:: Good Motor Activity:: Appropriate Appearance:: Neat Speech:: Appropriate Mood:: Anxious and Dysthymic Affect:: Full Thoughts:: Linear, Logical and No evidence of hallucinations/delusions noted Staff Interventions:: thought challenging, CBT techniques, mindfulness skills, strengths perspective, goal setting and taught coping skills Client Response:: Client reported yesterday after PHP he focused on putting away the items he had brought home from work. Client stated it felt a little heavy to have to look at some of his work stuff. Client reported after he organized and cleaned up some of his house he did focus on being more present in the moment. Client stated he found it slightly uncomfortable to not be creating plans or creating check lists of things he needs to be doing. 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 Client processed some ruminations he was having about difficult work situations he had been faced with recently. Therapist assisted client with challenging negative thoughts client has been having about himself in regards to not being able to just push through and continue working. Therapist and client started exploring what he thinks a healthy work environment looks like and started a list on red flags of a unhealthy work environment. Therapist provided education about the importance of catching himself falling into all or nothing thinking. Client agreed he can struggle with looking at the [place] of situations and gets stuck with being rigid in one way of doing things. Client reported today he plans to be more in the moment by spending time outdoors and working on his flower beds. Risks/Concerns:: Client denies current suicidal ideation, plan, or intention to date. future oriented. Client has recently experienced suicidal thoughts, but states currently feels safe and does not want to kill himself. Client has a safety plan. Client does not have access to firearms. Client reports as significant healthy support and protective factor. Progress Toward Goals/Plan:: Progress noted with client spending time yesterday decluttering his house which he stated is helpful for his mental health. Client reported he also did better with being in the moment and taking a break from listening/reading self-help material. Progress noted with client t aking time to cook a meal and spend time relaxing with his . Discussed return to work from [employer] with tentative return to work date of July 30. Plan is for client to continue PHP to improve daily functioning, improve distress tolerance, and prevent decompensation. Time Stopped:: 13:05
--- NOTE | 2024-06-22 09:00 | BH.SGPN.GN ---
Behaviors/Verbalizations/Mental Status: [] Client alert and oriented, casual appearance. Eye contact good. Motor activity appropriate. Speech within normal limits. Affect congruent, mood euthymic. Thoughts linear, logical, no signs of hallucinations or delusions. Reviewed client's symptom tracker, no risk for suicidal ideation, plan, or intent. Client Response/Progress/Benefit: [] Client responded well to session AEB listening to others and sharing thoughts/feelings. Client reported mental positive as feeling at work peace and having clarity when he woke up this morning. Client stated additional mental positive as spending 3 hours outside yesterday working in his [place]. Client noted current stressor as needing to make decisions about his job future because at this point he would be is not on a walk back into work because of recent negative experiences. Appeared to benefit from support from peers. Will continue PHP tx to improve daily functioning, increase consistent utilization of healthy coping skills, and prevent decompensation. Narrative Note: []
--- NOTE | 2024-06-22 10:10 | BH.SGPN.GN ---
Behaviors/Verbalizations/Mental Status: [] Eye contact is good. Motor activity is appropriate. Appearance is casual. Speech is Appropriate. Mood is depressed. Affect is congruent. Thoughts are linear and logical. No evidence of psychosis. Client Response/Progress/Benefit: [] Pt engaged participant AEB listening to others, engaging in activity, and providing feedback throughout. Attentive during psychoeducation and provided insight into obstacles that impede mental wellness. Pt shared with group current mental health reality and desired mental health reality. Identified barriers to desired reality. Benefited from taking look at current mental health state and obstacles for progress. Pt to continue PHP tx to prevent decompensation, maintain safety, stablize mood, and improve functioning to return to work. Narrative Note: []
--- NOTE | 2024-06-22 11:15 | BH.SGPN.GN ---
Behaviors/Verbalizations/Mental Status: []Pt alert and oriented, neatly dressed and groomed. Eye contact good. Motor activity appropriate. Speech within normal limits. Affect congruent, mood content and anxious. Thoughts linear, logical, no signs of hallucinations or delusions. Client Response/Progress/Benefit: [] Pt was engaged at times during group discussions and was attentive during group activity. Worked with peers to identify strategies to help overcome barriers and obstacles to desired reality. Group worked together to develop strategies for the common barriers. Identified personal barriers to desired reality and chose one obstacle to work. Pt stated pt wants to work on not setting boundaries by giving myself permission to tell people when they cross my boundaries.? Pt seemed to benefit from increased knowledge of practical strategies to overcome common barriers to moving forward. Will continue in PHP tx to prevent decompensation, increase distress tolerance, and improve daily functioning. ??? Narrative Note: []
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
--- NOTE | 2024-06-25 09:05 | BH.SGPN.GN ---
Behaviors/Verbalizations/Mental Status: [] Client alert and oriented, casual appearance. Eye contact fair. Motor activity appropriate. Speech within normal limits. Affect constricted, mood depressed and dysthymic. Thoughts linear, logical, no signs of hallucinations or delusions. Reviewed client's symptom tracker, no risk for suicidal ideation, plan, or intent. Client Response/Progress/Benefit: [] Client responded well to session AEB listening to others and sharing thoughts/feelings. Client noted mental positive as completing his to do list yesterday. Client noted additional month of positives and is finding a restorationism that he really liked and started to get back into getting. Client noted current stressor as feeling off and does not enjoy not feeling like himself. Stated his emotion today is lethargic. Appeared to benefit from support from peers. Will continue PHP tx to improve consistent utilization of healthy coping skills, challenge distortions, and prevent decompensation. Narrative Note: []
--- NOTE | 2024-06-25 10:10 | BH.SGPN.GN ---
Behaviors/Verbalizations/Mental Status: [] Client alert and oriented, casually dressed and groomed. Eye contact good. Motor activity appropriate. Speech within normal limits. Affect congruent, mood euthymic. Thoughts linear, logical, no signs of hallucinations or delusions. Client Response/Progress/Benefit: [] Client participated during the group discussion, providing input and remaining attentive during psychoeducation. Participated in experiential activity. Client contributed during interactive discussion on the consequences of unhealthy expression of emotions. Worked with group to identify several consequences which included hurting relationships and not getting needs met. Contributing during interactive discussion on common potholes to effectively communicating. Client identified personal ones as not communicating needs and getting snippy. Client was able to relate and make connections between the experiential activity and the overall topic, managing emotions through activity with positive self-talk and thought challenging. Benefited from increased awareness of how stress and emotions can impact one's ability to communicate. Will continue in [facility] to manage sx of anxiety, continue to improve overall functioning, and increase emotional regulation skills. Narrative Note: []
--- NOTE | 2024-06-25 11:15 | BH.SGPN.GN ---
Behaviors/Verbalizations/Mental Status: [] Client alert and oriented, casually dressed and groomed. Eye contact good. Motor activity appropriate. Speech within normal limits. Affect congruent, mood euthymic. Thoughts linear, logical, no signs of hallucinations or delusions. Client Response/Progress/Benefit: [] Client engaged in session AEB client listening attentively to peers and providing input. Attentive during psychoeducation on 4 zones of regulation. Pt able to identify feelings and behaviors for each zone. Pt identified coping skills one can use to support self in each zone. Pt stated belief that pt is in the blue zone today. Pt reports plan to take nap and then finish to-do list. Benefited from increased education on zones of regulation or stages of alertness for emotions and healthy coping skills to use for each zone. Pt will continue PHP tx to improve emotional regulation skills and prevent decompensation. Narrative Note: []
--- NOTE | 2024-06-25 16:25 | BH.MDN ---
Multi-Disciplinary Note Note 30-min Individual: Time Started:: 12:10 Date: 06/25/24 Purpose of session/treatment goals addressed:: Purpose of session was to address goals 1 and 2 from [facility]. Eye Contact:: Good Motor Activity:: Appropriate Appearance:: Casual Speech:: Appropriate Mood:: Dysthymic Affect:: Congruent Thoughts:: Linear, Logical and No evidence of hallucinations/delusions noted Staff Interventions:: thought challenging, CBT techniques, strengths perspective, goal setting and taught coping skills Client Response:: Client stated he is feeling extra tired today. client reported he did accomplish goals from last session, which he noted was helpful to do yesterday. Client reported for some reason he is just feeling off today. Client stated he believes he needs to take a nap today. Client reported he is feeling unsure if the current medication is right for him. Client stated he does remember struggling in the past when he increased his medication dosage. Client reported he will talk to [facility] psychiatrist this week to determine if he is on the current dosage. Client agreed he is basing this feeling on having two days of feeling more tired and not like himself. Client stated he will give himself more time to see if his mood improves in the next couple of days. Client reported continuing to spend significant amount of time ruminating on his workplace and had he got where he is with my mental health. client stated he knows he needs to work on being more in the moment. Client worked with therapist to identify plan for today to help with current mood. Client agreeable to focus on taking time to be in the moment and complete several small tasks to feel accomplished today. Risks/Concerns:: Denies suicidal ideation, plan, or intention. Progress Toward Goals/Plan:: Progress noted with pt no longer reporting feeling suicidal. Pt is struggling with feeling more dysthymic over the weekend. Pt is feeling worried the increase in his medication is causing a increase in lethargy and feeling of numbness. Client stated he isn't sure if he is depressed or just apathetic. Client open to thought challenge and focusing on opposite action today to help improve mood and keep himself from napping for several hours. Plan is for client to continue PHP to improve mood, challenge distortions, and prevent decompensation. Time Stopped:: 12:45
--- NOTE | 2024-06-26 09:05 | BH.SGPN.GN ---
Behaviors/Verbalizations/Mental Status: []Pt alert and oriented, neatly dressed and groomed. Eye contact good. Motor activity appropriate. Speech within normal limits. Affect congruent, mood hopeful. Thoughts linear, logical, no signs of hallucinations or delusions. Client Response/Progress/Benefit: []Pt was an active participant in group discussions. Attentive. Able to identify mental health wins including allowing himself time to practice self-care and using a timer to help pt stay on his routine. Pt's stressor today is ?I?m trying to work on a list to help me prevent crisis.? Pt is feeling low? this morning. Pt receptive to feedback from peers which pt reported was helpful. Progress noted. Benefited from group support, encouragement, and feedback. Will continue in [facility] to prevent decompensation, improve daily functioning, and reduce negative thinking patterns. ? Narrative Note: []
--- NOTE | 2024-06-26 10:15 | BH.SGPN.GN ---
Behaviors/Verbalizations/Mental Status: [] Eye contact is good. Motor activity is appropriate. Appearance is casual. Speech is Appropriate. Mood is depressed and anxious. Affect is congruent. Thoughts are linear and logical. No evidence of psychosis. Client Response/Progress/Benefit: [] Pt was an active participant in group discussions. Attentive during psychoeducation on the 4 communication styles (Passive, Passive-Aggressive, Aggressive, and Assertive) and the obstacles to effective communication. Contributed during interactive discussion on the benefits of communicating effectively. Worked well with peers to identify the benefits and disadvantages to the different communication styles. Reflected how various styles have impacted him personally Benefited from increased understanding of communication styles and how these can impact effective communication. Will continue in PHP to prevent decompensation, reduce negative thinking patterns and improve confidence, and improve daily functioning. Narrative Note: []
--- NOTE | 2024-06-26 11:15 | BH.SGPN.GN ---
Behaviors/Verbalizations/Mental Status: []Pt alert and oriented, casually dressed and groomed. Eye contact good. Motor activity appropriate. Speech within normal limits. Affect congruent, mood dysthymic. Thoughts linear, logical, no signs of hallucinations or delusions. Client Response/Progress/Benefit: [] Pt responded well to session AEB Pt listening attentively to others and providing input during group discussion on the pay offs and costs of the different communication styles. Pt able to connect how current communication style impacts mental health. Connected with peers? comments about importance of using assertive communication. Pt seemed to benefit from increasing awareness of healthy strategies to improve communication. Client engaged in practicing use of assertive communication. Will continue IOP tx to prevent decompensation, promote healthy coping, and challenge distortions.?
--- NOTE | 2024-06-26 16:30 | BH.MDN ---
Multi-Disciplinary Note Note 45-min Individual: Time Started:: 12:12 Date: 06/26/24 Purpose of session/treatment goals addressed:: Purpose of session was to address goals 1 and 2 from [facility]. Eye Contact:: Fair Motor Activity:: Appropriate Appearance:: Neat Speech:: Appropriate Mood:: Dysthymic Affect:: Constricted Thoughts:: Linear, Logical and No evidence of hallucinations/delusions noted Staff Interventions:: thought challenging, CBT techniques, strengths perspective and goal setting Client Response:: Client reported he is starting to get back into doing his nighttime face routine and engaging in more Self-care. Client stated as he reflects back on his functioning before taking leave from work he realizes he really stopped doing self-care for quite a while. Client stated he realize he needs to start asking himself ?is my body telling me something?, which he thinks it will help him catch it faster when he's starting to decline. Client reported something he realized last night is he needs to focus on having more self-respect. Client stated when reflecting back on the last several months he allowed a lot of ?not okay? behavior from his boss. 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 Through discussion thought challenge with therapist client realized it's not his fault for taking time to take care of his mental health when he had asked for help and verbalized his animal care supervisor's concerns about their boss's behavior. Client worked with therapist to start creating checklist of what a healthy work environment looks like, signs of an unhealthy work environment, and signs that he is personally starting to struggle. Client stated he believes making these lists will help him with having a healthier work environment and catching himself moving towards a personal crisis. Risks/Concerns:: Client denies suicidal ideation, plan, or intention to date. Progress Toward Goals/Plan:: Progress variable. Client continuing to report feeling not like myself in regards to his personality and mood. Client stated his makes comments that client doesn't seem right. client reported he feels more numb and I don't care attitude. Client still unsure if the medication is making him more numb, he plans to discuss with IOP psychiatrist tomorrow. Progress can be noted with client stating not having suicidal thoughts in over a week. Client is to continue PHP to improve daily functioning, increase healthy coping skills, and prevent decompensation. Time Stopped:: 13:00
--- NOTE | 2024-06-27 09:00 | BH.SGPN.GN ---
Behaviors/Verbalizations/Mental Status: [] Eye contact is good. Motor activity is appropriate. Appearance is casual. Speech is Appropriate. Mood is anxious and depressed. Affect is congruent. Thoughts are linear and logical. No evidence of psychosis. Reviewed daily check in sheet and no reports of suicidal ideations or intent. Client Response/Progress/Benefit: [] Pt was an active participant in group discussions. Attentive. Did well to identify 2 mental health wins including being able to spend time on self-care yesterday. Described cooking dinner. Additional win noted as practicing self-compassion. Reports feeling like a muted version of himself as current stressor. Benefited from group support, encouragement, and feedback. Will continue in PHP to prevent decompensation, promote mood stability, and increase consistent use of healthy coping. Narrative Note: []
--- NOTE | 2024-06-27 10:10 | BH.SGPN.GN ---
Behaviors/Verbalizations/Mental Status: []Pt alert and oriented, neatly dressed and groomed. Eye contact good. Motor activity appropriate. Speech within normal limits. Affect congruent, mood anxious and depressed. Thoughts linear, logical, no signs of hallucinations or delusions. Client Response/Progress/Benefit: [] Pt took notes and contributed to group discussions. Attentive during psychoeducation on growth mindset. Participated during the activity. Interactive group discussion on growth mindset in which group verbalized their current fixed mindsets and how they affect their mental health. Pt shared common fixed mindset thoughts they have. These thoughts lead to feeling disheartened about self and the world, not reaching out to others for help, and self-criticism. Pt shared a personal fixed thought People will dressage judge me for who I am. Pt benefited from increased awareness of growth mindset and fixed thoughts and how fixed thoughts impact their mental health. Will continue PHP to improve daily functioning, increase consistent use of healthy coping, and prevent decompensation.
--- NOTE | 2024-06-27 11:10 | BH.SGPN.GN ---
Behaviors/Verbalizations/Mental Status: []Pt alert and oriented, neatly dressed and groomed. Eye contact good. Motor activity appropriate. Speech within normal limits. Affect congruent, mood depressed. Thoughts linear, logical, no signs of hallucinations or delusions. Client Response/Progress/Benefit: [] Pt was an active participant during activity and discussion. Pt did well to remain attentive and participate as group worked on identifying characteristics and benefits of adopting a growth mindset. Worked with fellow participants in reframing the example fixed thoughts into growth mindset thoughts. Pt worked on changing own fixed thought and reframed the thought to ?I have been here before and I will get better again.? Pt also wants to work on using dialectical thinking. Pt appeared to benefit from challenging own thoughts and engaging in the activity. Pt will continue PHP tx to prevent decompensation, increase self-compassion, and improve daily functioning. ? Narrative Note: []
--- NOTE | 2024-06-27 16:31 | BH.MDN ---
Multi-Disciplinary Note Note 45-min Individual: Time Started:: 12:05 Date: 06/27/24 Purpose of session/treatment goals addressed:: Purpose of session was to address goals 1 and 2 from [facility]. Eye Contact:: Fair Motor Activity:: Appropriate Appearance:: Neat Speech:: Appropriate Mood:: Dysthymic Affect:: Constricted Thoughts:: Linear, Logical and No evidence of hallucinations/delusions noted Staff Interventions:: thought challenging, psychoeducation on: (novelty), CBT techniques, mindfulness skills, strengths perspective and goal setting Client Response:: Client reported he was ?in a funk? all morning with feeling ?numb?. Client stated he doesn't know if he's still feeling numb and down because of ruminations and grief connected to his job. Client shared he feels upset that he potentially won't be able to stay at this job because of one person's behavior. Client stated there are a lot of parts of this job that he really enjoys and is going to miss doing that if he can't stay did the impact it has had on his mental health. Client continued to process feelings and thoughts connected to his workplace. Client receptive to therapist challenging his negative and distorted thought patterns in regards to his belief about himself being a failure for having to take a break from work. In discussion about strategies to help him prevent this from happening again discussed the importance of novelty in regards to skill use. Therapist provided psychoeducation that it's important to switch up techniques and strategies over time because if he has a sticky note in the same location for months his brain will eventually stop registering that visual aid. Discussed how the brain likes novelty and will have greater impact if he switches up his visual aids more frequently. Client stated he connected with this because he has had a sticky note on his laptop that was supposed to be a reminder to take care of himself but he no longer was registering or processing that statement. Risks/Concerns:: Denies suicidal ideation, plan, or intention to date. Future oriented. Progress Toward Goals/Plan:: Client continuing to struggle with ruminations and thoughts connected to his job, which seems to be negatively impacting his mood. Client does continue to report not feeling like himself and numb. client has been working on taking a break from listening and reading to self-help material. Client focusing on small goals each day like decreasing his nap time, cooking dinner, accomplishing a small household task, and being more mindful. Plan is for client to continue PHP to challenge distortions, decrease ruminations about past, and prevent decompensation. Time Stopped:: 12:50
--- NOTE | 2024-06-28 09:00 | BH.SGPN.GN ---
Behaviors/Verbalizations/Mental Status: [] Client alert and oriented, casual appearance. Eye contact good. Motor activity appropriate. Speech within normal limits. Affect congruent, mood euthymic and anxious. Thoughts linear, logical, no signs of hallucinations or delusions. Reviewed client's symptom tracker, no risk for suicidal ideation, plan, or intent. Client Response/Progress/Benefit: [] Client responded well to session AEB listening to others and sharing thoughts/feelings. Client reported mental positive as spending time outside which often is a mood booster for him. Client stated additional mental positive as attending the [employer] class last night in which he felt a little bit more like himself because he was joking. Client noted current stressor as feeling guilt for not being at work because there is a event coming up that he will not be there to help with. Appeared to benefit from support from peers. Will continue PHP tx to increase and promote healthy coping skills, challenge negative thoughts, and prevent decompensation. Narrative Note: []
--- NOTE | 2024-06-28 10:15 | BH.SGPN.GN ---
Behaviors/Verbalizations/Mental Status: [] Pt alert and oriented, casually dressed and groomed. Eye contact good. Motor activity appropriate. Speech within normal limits. Affect congruent, mood dysthymic. Thoughts linear, logical, no signs of hallucinations or delusions. Client Response/Progress/Benefit: [] Pt participated at times during the group discussions. Attentive during psychoeducation on the CBT [place] (Thoughts, Behaviors, Emotions). Engaged in group discussion on how thoughts and behaviors can contribute to maintaining adverse feelings, such as depression, anxiety, and irritability. Completed worksheet in which pt identified obstacles and/or thoughts that are keeping them stuck. Shared thoughts that included; no one care about me, i'm alone, no one cares about each-other. Pt benefited from increased awareness of the basis of CBT therapy as well as specific thoughts that are impacting pt's progress. Will continue in IOP to prevent decompensation/re-admission to psych unit, maintain safety, improve functioning, and increase healthy coping. Narrative Note: []
--- NOTE | 2024-06-28 11:15 | BH.SGPN.GN ---
Behaviors/Verbalizations/Mental Status: []Pt alert and oriented, casually dressed and groomed. Eye contact good. Motor activity appropriate. Speech within normal limits. Affect congruent, mood depressed. Thoughts linear, logical, no signs of hallucinations or delusions. Client Response/Progress/Benefit: [] Pt responded well to session, contributing to discussion and attentive throughout. Pt identified a negative thought that has kept them stuck. Pt's thought was Something must be wrong with me.? Pt reported when they think this way, pt isolates, speaks negatively to himself, and stops using his skills. Pt worked to reframe the thought by finding more rational, realistic ways to look at the thoughts and then processed them within group setting. Pt reframed the thought to ?I am human and doing the best I can.? Pt appeared to benefit from practicing challenging negative thinking with peers and gaining coping skills. Pt will continue PHP tx to promote mood stability, increase thought challenging, and further increase self-compassion. Narrative Note: []
--- NOTE | 2024-06-28 11:30 | PCM.BH.PN ---
Progress Note Progress Note: History of Present Illness/Interim History: The patient is a 49-year-old male with a history of depression and anxiety who is seen in follow-up at the [facility] behavioral health PHP. The patient was last seen 1 week ago and at that time his Cymbalta was increased to 60 mg daily. Overall he feels a little bit numb and has some increase in constipation lately but otherwise is tolerating the Cymbalta well. He feels he is benefiting from the PHP and learning valuable skills to help help deal with his mental health issues. He denies any crying episodes now. He feels a little less stressed because he has made a decision not to go back to his old job and will start looking for a new job. His mood remains depressed but slowly he is feeling more hopeful. He has not had any alcohol for a week and has no urges to drink. He denies passive thoughts of , suicidal ideation, plan for suicide, homicidal ideation, hallucinations or delusions. Current Psychiatric Medications: [] Cymbalta 60 mg p.o. daily (x 1 week); Xanax 0.25 mg p.o. as needed but not taking much. Mental Status Examination: [] The patient is a 49-year-old male who appears normal for stated age and is casually dressed and groomed with good hygiene. He is cooperative during the interview and ambulatory with a normal gait. He has no psychomotor agitation or retardation. Eye contact is good and speech is normal rate and rhythm and fluent with no pressure. Mood is depressed and anxious. Affect is full and normal. Thought process is goal-directed and organized. Thought content: The patient is fair and feeling more hopeful for the future. There is no evidence of suicidal ideation, passive thoughts of , plan for suicide, homicidal ideation, hallucinations or delusions. Reality testing is intact. Intelligence is above average. Judgment is intact. Insight is fair and improving. Impulsivity is low. Diagnoses: [] 1. Major depressive disorder, recurrent, severe without psychosis 2. Generalized anxiety disorder 3. Obstructive sleep apnea using CPAP 4. Work issues Plan: [] The patient will continue the PHP program at [facility] as the structure, support, education and group therapy will hopefully prevent worsening of the patient's symptoms. He felt safe during the interview and if it anytime he does not feel safe he agrees to let us know or go to the emergency room. The patient will continue to follow-up with his outpatient providers and I will see the patient in follow-up in 1 week. No medication changes were made today as they were changed last week. The patient agrees to try increase fluid intake, increase fiber intake and use of stool softeners to help with his side effect of constipation from Cymbalta.
--- NOTE | 2024-06-28 16:32 | BH.MDN ---
Multi-Disciplinary Note Note 45-min Individual: Time Started:: 12:05 Date: 06/28/24 Purpose of session/treatment goals addressed:: Purpose of session was to address goals 1 and 2 from [facility]. Eye Contact:: Good Motor Activity:: Appropriate Appearance:: Neat Speech:: Appropriate Mood:: Dysthymic Affect:: Constricted Thoughts:: Linear, Logical and No evidence of hallucinations/delusions noted Staff Interventions:: thought challenging, CBT techniques, discharge planning, strengths perspective and goal setting Client Response:: Client shared this morning he started to feel more like himself but then ?felt flat? by mid morning. Client described feeling ?flat? as detached, not making jokes, and not being as engaged with others. Client stated he's still unsure if this numb feeling is connected to everything that's been going on in his life or if it is the increase in the medication. Client stated after meeting with program psychiatrist he agreed to continue taking current medication and dosage for one more week to see if client notices any other changes. Client reported he feels like he could try for one more week because he realizes some medication takes couple weeks before they're positive effects from it. Client shared he is experiencing a lot of guilt because he is missing a fundraising event at work due to being on leave. Client stated it feels bad because he advocated for a specific family at work to have a fundraising event for and now he won't be there to see the event through. Client reported he felt like his boss was neglecting this specific family and client was trying to advocate for them and now isn't there to follow through with the event. Tearful as discussing this stressful situation. Client receptive to thought challenge With assistance from therapist. Client recognizes although it is disappointing to not be at work too finish this fundraising event realizes it's just as important to take care of himself. Risks/Concerns:: Denies suicidal ideation, plan, or intention to date. future oriented. Identifies protective factors. Progress Toward Goals/Plan:: Progress noted with client reporting having a few hours in which he felt more like myself. However, client still reporting more often feeling numb and detached. Client is using opposite action at home by making himself be social, trying to do nice things for his , getting outside when it's nice out, and reducing how often he is napping. Although client is reporting use of skills he is still reporting dysthymic mood most days. Started discharge discussion from [facility] and client agreed he is ready for discharge from [facility] on Tuesday and will start IOP next week. Client stated [facility] was helpful to have added support and decreasing his suicidal thoughts. Plan is for client to discharge from [facility] tomorrow. Time Stopped:: 13:50
--- NOTE | 2024-06-29 09:05 | BH.SGPN.GN ---
Behaviors/Verbalizations/Mental Status: [] Eye contact is good. Motor activity is appropriate. Appearance is casual. Speech is Appropriate. Mood is depressed. Affect is flat. Thoughts are linear and logical. No evidence of psychosis. Reviewed daily check in sheet and no reports of suicidal ideations or intent. Client Response/Progress/Benefit: [] Pt participated at times during the group discussions. Attentive. Daily symptom tracker notes 06/13 for depression. Reports that he feels number than usual which he attributes to a medication change. Believes that the medication is numbing his emotions as well as his personality. He has plans this weekend which he is looking forward too. Progress noted. Will continue in PHP to maintain safety, increase healthy coping, and improve functioning. Narrative Note: []
--- NOTE | 2024-06-29 10:15 | BH.SGPN.GN ---
Behaviors/Verbalizations/Mental Status: []Pt alert and oriented, casually dressed and groomed. Eye contact good. Motor activity appropriate. Speech within normal limits. Affect congruent, mood depressed and anxious. Thoughts linear, logical, no signs of hallucinations or delusions. Client Response/Progress/Benefit: []Pt was an active participant in group discussion and activity. Attentive during psychoeducation. Along with peers, pt was able to identify barriers to taking action in their life. Identified several symptoms and stressors that pt feels are holding them back from progress such as avoidance, lack of communication of needs, and negative self-talk. Stated these things have kept pt from loving and advocating for himself. Pt shared that he wants to begin addressing negative self-talk. Benefited from increased self-awareness of obstacles. Will d/c from PHP and begin IOP tx to improve mood management, promote consistent skill application, and further improve self-confidence. Narrative Note: []
--- NOTE | 2024-06-29 11:10 | BH.SGPN.GN ---
Behaviors/Verbalizations/Mental Status: []Pt alert and oriented, casually dressed and groomed. Eye contact good. Motor activity appropriate. Speech within normal limits. Affect congruent, mood dyshtymic. Thoughts linear, logical, no signs of hallucinations or delusions. Client Response/Progress/Benefit: [] Pt responded well to session, taking notes and participating in worksheet discussion. Pt connected with the discussion on action steps, and this helped pt learn how to set goals differently. Pt set a SMART goal that every Tuesday he will reflect on the past 7 days. Pt shared asking his for support with this goal and adding it to his check-in sheet will support him in accomplishing this goal. Appeared to benefit from identifying a small goal to benefit mental health. Pt is to continue PHP to improve daily functioning, increase healthy coping, and prevent decompensation.
--- NOTE | 2024-06-29 14:19 | BH.DS ---
Discharge Summary Demographics Discharge Date: 06/29/24
--- NOTE | 2024-06-29 14:19 | BH.DS_ITS ---
Discharge Summary Demographics Discharge Date: 06/29/24
--- NOTE | 2024-06-29 15:16 | BH.MDN_ITS ---
Multi-Disciplinary Note Note 45-min Individual: Time Started:: 12:05 Date: 06/29/24 Purpose of session/treatment goals addressed:: Purpose of session was to address goals 1 and 2 from [facility]. Eye Contact:: Good Motor Activity:: Appropriate Appearance:: Neat Speech:: Appropriate Mood:: Dysthymic Affect:: Constricted Thoughts:: Linear, Logical and No evidence of hallucinations/delusions noted Staff Interventions:: thought challenging, CBT techniques, discharge planning, strengths perspective and goal setting Client Response:: Client continues to report feeling blah. Client reported he doesn't feel super down, but doesn't feel happy. Client stated his has commented throughout this week that client doesn't seem like himself. Client reported he is trying to not hyper-focus on the medications being the cause of his current mood. Client stated he will give the medication another week to see if it levels out. Client stated he can see progress with feeling less anxious, not suicidal, decreased tearfulness, and feeling more calm compared to last week. However, he does feel like he is more numb and isn't feeling emotions like his baseline. Client stated he has had moments throughout the week of being able to joke and laugh, but not nearly as often as his normal. Client reported despite his mood not being where he'd like it to be, he is following through with having daily tasks/goals. Client stated yesterday he took a short nap, accomplished a few chores, and cooked dinner. Client reported he's been processing his thoughts/feelings about next career path with his . Client stated he has decided he won't make any decisions about this next job until he does decisional worksheet balance on each job and is going to request a job shadow day. Client reported he needs to pick a work environment that is healthy, instead of picking a job that pays the most. Client reported he is feeling ready to discharge from [facility] today. Although he is feeling more numb emotionally this week he does see progress with his daily functioning, decrease anxious ruminations, and is starting to get back into his self-care routine. Client agreeable to focus on the gratitude homework over the weekend. Risks/Concerns:: Denies suicidal ideation, plan, or intention to date. Denies passive thoughts of . Future oriented. Progress Toward Goals/Plan:: Progress noted with client reporting improved daily functioning, getting back into self-care routine, decrease in depressed symptoms, and no suicidal thoughts. Client had a couple days in the last 14 days in which he had passive thoughts of , but denies active suicidal thoughts since 06/15/24. Client has been putting focus into being more mindful, decreasing how much time he spends on reflecting each day, and getting back into things he used to enjoy doing. Plan is for client to discharge from [facility] today and will start IOP next week. Time Stopped:: 12:45
--- NOTE | 2024-06-29 16:33 | BH.MDN ---
Multi-Disciplinary Note Note 45-min Individual: Time Started:: 12:03 Date: 06/29/24 Purpose of session/treatment goals addressed:: Purpose of session was to address goals 1 and 2 from [facility] and review [facility] treatment progress. Eye Contact:: Good Motor Activity:: Appropriate Appearance:: Neat Speech:: Appropriate Mood:: Dysthymic Affect:: Congruent Thoughts:: Linear, Logical and No evidence of hallucinations/delusions noted Staff Interventions:: thought challenging, CBT techniques, discharge planning, strengths perspective and goal setting Client Response:: Client reported continuing to feel about the same with feeling blah. Client reported he was reflecting last night about how he tends to be a people pleaser. Client stated he came up with the idea that when he makes the checklist he's going to add that every Tuesday he's going to reflect on the week and ask self ?Is there is something I need to hold someone accountable for.? Client stated asking himself this question will help and be more intentional with his reflection about how the week went and be able to address situations that make him feel uncomfortable or not OK in a more timely manner. Client stated in looking back at a situation that happened at his workplace recently when his boss used a derogatory term in front of him client didn't say anything at the time and feels somewhat upset with himself for not addressing that situation at any point with that boss. Client reported he doesn't want this to repeat itself so by adding this intentional reflection each week it should help him be more mindful about meeting his own needs and verbalizing boundaries. Client stated he is feeling ready for discharge from [facility] today and we'll start IOP on Tuesday of next week. Client reported progress sees noted in himself is no longer having suicidal thoughts, decrease laying around throughout the day, decrease naps, and improved follow through with getting things done around the house. Risks/Concerns:: Denies suicidal thoughts, plan, or intention. Future focused. Progress Toward Goals/Plan:: Progress noted with client reporting no suicidal thoughts in over one week, improve daily functioning, decreased depression, decreased anxiety, and improved use of healthy coping skills. Prior to [facility] client had an aborted suicide attempt and was significantly struggling with home functioning with not doing much besides laying around and watching tv after being done with work. Client is using opposite action to get more done around the house, starting to engage in hobbies again, connecting with his , and not reporting any suicidal thoughts. Plan is for client to discharge from [facility] and being IOP program on Tuesday. Time Stopped:: 12:45
--- NOTE | 2024-07-03 16:34 | BH.MDN ---
Multi-Disciplinary Note Note 45-min Individual: Date: 07/03/24
== END 2024-06-29 14:10 | disposition home or self-care (01) ==
LOC: BHPHP 08:00
PROVIDERS: PCP Internal Medicine; Referring Provider Psychiatry & Neurology Psychiatry; Visit Provider Psychiatry & Neurology Psychiatry
DX: F33.2 Major depressive disorder, recurrent severe without psychotic features (principal); F41.1 Generalized anxiety disorder; G47.33 Obstructive sleep apnea (adult) (pediatric); Z79.899 Other long term (current) drug therapy
CPT/HCPCS: H0035; S9480; 90832; 90834; 90837; 90853; G0410

== ENCOUNTER 2024-07-02 08:00 | Outpatient (RCR) | payer OTHER, SELFPAY ==
--- NOTE | 2024-07-02 09:00 | BH.SGPN.GN ---
Behaviors/Verbalizations/Mental Status: [] Eye contact is good. Motor activity is appropriate. Appearance is casual. Speech is Appropriate. Mood is depressed. Affect is flat. Thoughts are linear and logical. No evidence of psychosis. Reviewed daily check in sheet and pt reports 1/5 for suicidal thoughts and 1/5 for intent. Therapist notified and will meet with pt. Client Response/Progress/Benefit: [] Pt participated when prompted. Attentive. Disengaged from group discussions. Daily symptom tracker notes 35 for depression/anxiety. Pt reports feeling ?tired and lethargic? stating that it was a struggle to wake up this morning. ?Not my normal self?. Low energy and motivation reporting feeling numb. Shared that feeling numb is challenging however its preferable to suicidal thoughts. Limited progress noted. Benefited from group support, encouragement, and feedback. Will continue in PHP to maintain safety, prevent decompensation, increase healthy coping skills, and improve functioning. Narrative Note: []
--- NOTE | 2024-07-02 10:20 | BH.SGPN.GN ---
Behaviors/Verbalizations/Mental Status: []Pt alert and oriented, neatly dressed and groomed. Eye contact good. Motor activity appropriate. Speech within normal limits. Affect congruent, mood depressed. Thoughts linear, logical, no signs of hallucinations or delusions. Client Response/Progress/Benefit: [] Pt was attentive during psychoeducation and participated in group activity. Group discussed what contributes to a person?s perspective and how perspective can positively or negatively impact mental health treatment. Pt reflected on their perspective today and how it is impacting them. Pt shared their perspective is mostly positive, but he is currently struggling with not feeling like himself due to medication. Pt stated he is reminding himself that this has happened before. Pt appeared to benefit from increasing awareness of different perspectives and how they can affect mental health. Pt will continue IOP tx to prevent decompensation, improve daily functioning, and improve self-compassion. Narrative Note: []
--- NOTE | 2024-07-02 11:20 | BH.SGPN.GN ---
Behaviors/Verbalizations/Mental Status: []Pt alert and oriented, casually dressed and groomed. Eye contact good. Motor activity appropriate. Speech within normal limits. Affect congruent, mood dysthymic and anxious. Thoughts linear, logical, no signs of hallucinations or delusions. Client Response/Progress/Benefit: []Pt was attentive and contributed to group discussion. Pt worked with group to identify strategies that can help with challenging negative perspective. Pt stated they can practice using dialectical thinking to challenge negative perspective. Pt completed strengths exploration worksheet, identifying personal strengths. Pt able to acknowledge how these strengths are helping pt and can continue to help pt in mental health journey. Pt identified wanting to work on leaning on strength of creativity and humor. Benefited from identifying personal strengths and strategies for enhancing use of identified strengths. Pt will continue IOP tx to continue improve functioning, mood stability, and prevent decompensation. Narrative Note: []Behaviors/Verbalizations/Mental Status: []Pt alert and oriented, casually dressed and groomed. Eye contact good. Motor activity appropriate. Speech within normal limits. Affect congruent, mood dysthymic and anxious. Thoughts linear, logical, no signs of hallucinations or delusions. Client Response/Progress/Benefit: []Pt was attentive and contributed to group discussion. Pt worked with group to identify strategies that can help with challenging negative perspective. Pt stated they can practice using dialectical thinking to challenge negative perspective. Pt completed strengths exploration worksheet, identifying personal strengths. Pt able to acknowledge how these strengths are helping pt and can continue to help pt in mental health journey. Pt identified wanting to work on leaning on strength of creativity and humor. Benefited from identifying personal strengths and strategies for enhancing use of identified strengths. Pt will continue IOP tx to continue improve functioning, mood stability, and prevent decompensation. Narrative Note: []
--- NOTE | 2024-07-02 13:48 | BH.MTP ---
Master Treatment Plan Patient Information Program Physician:: Dr. Brandt Primary Therapist:: ROSA Urias-S Estimated LOS Estimated LOS (in weeks):: 6
--- NOTE | 2024-07-03 09:00 | BH.SGPN.GN ---
Behaviors/Verbalizations/Mental Status: [] Client alert and oriented, casual appearance. Eye contact good. Motor activity appropriate. Speech within normal limits. Affect constricted, mood dysthymic. Thoughts linear, logical, no signs of hallucinations or delusions. Reviewed client's symptom tracker, no risk for suicidal ideation, plan, or intent. Client Response/Progress/Benefit: [] Client responded well to session AEB listening to others and sharing thoughts/feelings. Client reported mental positive as making himself engage in cooking which is something that he typically enjoys so he took time to make homemade dumplings and progress. Client shared he went to check on the [place] [facility] over the weekend with his and mom but stated he felt a little bit more disconnected from them as he was traveling. Client noted current stressor as allowing himself to take a 2-hour nap yesterday. Client stated current emotion as flat. Appeared to benefit from support from peers. Will continue IOP tx to increase consistent utilization of healthy coping skills, challenge distortions, and prevent decompensation. Narrative Note: []
--- NOTE | 2024-07-03 10:10 | BH.SGPN.GN ---
Behaviors/Verbalizations/Mental Status: [] Eye contact is good. Motor activity is appropriate. Appearance is casual. Speech is Appropriate. Mood is anxious and dysthymic. Affect is congruent. Thoughts are linear and logical. No evidence of psychosis. Client Response/Progress/Benefit: [] Pt was an active participant during group discussions and group activities. This portion of group was very psychoeducation heavy and pt was attentive during psychoeducation. Engaged during activity in which they identified which type of foods (i.e. carbs, sugar, salt, fast food, caffeine, etc) they seek out when sad, tired, angry, stressed, anxious, etc. Pt was able to identify the impact that certain foods have on their mental health through group example which was beneficial. Benefited from increased awareness of the connection between nutrition and mental health. Will continue in IOP to prevent decompensation, decrease anxiety, improve healthy coping, and improve functioning to return to work. Narrative Note: []
--- NOTE | 2024-07-03 11:15 | BH.SGPN.GN ---
Behaviors/Verbalizations/Mental Status: []Pt alert and oriented, neatly dressed and groomed. Eye contact good. Motor activity appropriate. Speech within normal limits. Affect congruent, mood dysthymic. Thoughts linear, logical, no signs of hallucinations or delusions. Client Response/Progress/Benefit: [] Pt was an active participant during group discussions and group activities. This portion of group was very psychoeducation heavy and pt was attentive during psychoeducation. Engaged during activity in which they identified their own maintenance cycles with food and how it impacts their mental health symptoms. Pt and peers identified barriers to breaking these cycles as well as ways to combat barriers. Pt stated one barrier he runs into is wanting to eat something fast after work, which ends up being unhealthy. Pt plans to talk with his about planning out meals. Benefited from increased awareness of the connection between nutrition and mental health and from identifying strategies. Will continue in IOP to prevent decompensation, improve daily functioning, and increase self-confidence. Narrative Note: []
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
--- NOTE | 2024-07-04 09:05 | BH.SGPN.GN ---
Behaviors/Verbalizations/Mental Status: [] Eye contact is good. Motor activity is appropriate. Appearance is casual. Speech is Appropriate. Mood is euthymic. Affect is full. Thoughts are linear and logical. No evidence of psychosis. Reviewed daily check in sheet and no reports of suicidal ideations or intent Client Response/Progress/Benefit: [] Pt was an active participant in group discussions. Attentive. Daily symptom tracker notes 3/5 for depression and 2/5 for anxiety. Reports increased clarity and improved mood. Feels more energetic and ?more like myself?. He discussed perspective changes and believes that he may be adjusting to his medications as well. ? I didn?t go home and sleep yesterday?. Progress noted. Benefited from group support, encouragement, and feedback. Will continue in IOP to maintain safety, prevent decompensation, stabilize mood, and improve functioning to return to work Narrative Note: []
--- NOTE | 2024-07-04 10:15 | BH.SGPN.GN ---
Behaviors/Verbalizations/Mental Status: [] Eye contact is fair. Motor activity is appropriate. Appearance is casual. Speech is Appropriate. Mood is depressed. Affect is constricted. Thoughts are linear and logical. No evidence of psychosis. Client Response/Progress/Benefit: [] Pt was an active participant during interactive group discussions. Along with peers contributed to interactive discussion on defining what a boundary is in mental health. Pt along with peers identified challenges and benefits to setting boundaries. Attentive during psychoeducation on types of boundaries (rigid, porous, flexible). Pt benefited from increased awareness and insight on the importance/benefit to setting health boundaries. Will continue in PHP to promote use of healthy coping skills, prevent decompensation, maintain safety, and improve functioning to return to work. Narrative Note: []
--- NOTE | 2024-07-04 11:15 | BH.SGPN.GN ---
Behaviors/Verbalizations/Mental Status: [] Eye contact is good. Motor activity is appropriate. Appearance is casual. Speech is Appropriate. Mood is euthymic. Affect is congruent. Thoughts are linear and logical. No evidence of psychosis. Client Response/Progress/Benefit: [] Client responded well to session AEB listening attentively to peers, providing input, as well as taking notes throughout. Group discussed different styles of boundary setting. Reports connecting most with porous style of boundary setting. Participated in small group discussion brainstorming various strategies for improving healthy boundary setting. Pt took time to complete reflection on which skills would like to implement to improve boundaries. Seemed to benefit from increased awareness of how different boundary styles can impact mental health. Will continue IOP tx to increase consistent application of skills and prevent decompensation.
--- NOTE | 2024-07-04 11:42 | BH.DR.ITP ---
Initial Treatment Plan Patient Information Visit Information: ADMISSION DATE: EXPECTED LOS: 4-6 weeks Problems/Symptoms Problem #1:: Depression Symptom:: Sadness,Fatigue, decreased concentration, hopelessness, guilt, recent passive thoughts of , recent suicidal ideation Problem #2:: Anxiety Symptom:: Worry, rumination, panic attacks
--- NOTE | 2024-07-04 11:45 | PCM.BH.PN ---
Progress Note Progress Note: History of Present Illness/Interim History: The patient is male with a history of depression and anxiety who is seen in follow-up at the [facility] behavioral health [facility]. I last saw the patient 1 week ago. The patient at that time had been on increased dose of Cymbalta for 1 week and complained that he felt numb and tired on it. The patient felt that his personality was too constricted on this higher dose. However he had stated that over the weekend he had been able to go to yarsani and enjoy it which was not the usual lately. The patient states that in the past day or so he started feeling better on the Cymbalta mood kumar. He feels less numb now and less depressed. He did not need to take a nap for the past few days and has less fatigue and exhaustion. He feels his personalities approaching normal at this point on the higher dose of Cymbalta. Mood is still down but much less depressed. He denies passive thoughts of , suicidal ideation, homicidal ideation, hallucination or delusions. No alcohol or substance use. Current Psychiatric Medications: [] Cymbalta 60 mg p.o. daily (dose increased 2 weeks ago); Xanax 0. 2 5 mg but patient has not used this since starting the PHP. Mental Status Examination: [] The patient is a 49-year-old male who appears normal for stated age and is casually dressed and groomed with good hygiene. He is ambulatory with a normal gait and has no psychomotor agitation or retardation. He is cooperative and pleasant during the interview. Eye contact is good and speech is normal rate and rhythm and fluent with no pressure. Mood is mildly depressed. Affect is full and normal. Thought process: Goal-directed and organized. Thought content: The patient is hopeful for the future. There is no evidence of passive thoughts of , suicidal ideation, homicidal ideation, hallucinations or delusions or symptoms of corazon. Reality testing is intact. Judgment is intact. Insight is good. Impulsivity is low. Diagnoses: [] 1. Major depressive disorder, recurrent, severe without psychosis (improving) 2. Generalized anxiety disorder 3. Obstructive sleep apnea using CPAP 4. Work issues Plan: [] The patient will stepdown from [facility] to [facility] and continue participating in the program as the structure, support, education and group therapy will hopefully prevent worsening of the patient's symptoms. He felt safe during the interview and he agrees that if it anytime he is not feel safe he will let us know or go to the emergency room. No medication changes were made today. He will continue to follow-up with his outpatient providers and I will see the patient in follow-up in 2 weeks.
--- NOTE | 2024-07-05 09:00 | BH.SGPN.GN ---
Behaviors/Verbalizations/Mental Status: [] Pt alert and oriented, neatly dressed and groomed. Eye contact good. Motor activity appropriate. Speech within normal limits. Affect congruent, mood euthymic. Thoughts linear, logical, no signs of hallucinations or delusions. Reviewed pt?s symptom tracker, no risk for suicidal ideation, plan, or intent 06/25/24. Client Response/Progress/Benefit: []Pt was an active participant in group discussions. Attentive. Able to identify mental health wins including getting up early and exercising, being more intentional with his daily goals, and going out to dinner with his last night. 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 Pt stated feeling peace today as pt feels that his medication is finally kicking in. Pt receptive to feedback and emotional support from peers which pt reported was helpful. Progress noted. Benefited from group support, encouragement, and feedback. Will continue in IOP to promote use of healthy coping skills, reduce negative self-talk, and improve daily functioning. Narrative Note: []
--- NOTE | 2024-07-05 10:15 | BH.SGPN.GN ---
Behaviors/Verbalizations/Mental Status: []Pt alert and oriented, casually dressed and groomed. Eye contact good. Motor activity appropriate. Speech within normal limits. Affect congruent, mood anxious and depressed. Thoughts linear, logical, no signs of hallucinations or delusions. Client Response/Progress/Benefit: [] Pt receptive to session AEB contributing to group discussion, as well as listening attentively to others, and taking notes. Worked with group to brainstorm the positive and negative aspects of stress on physical and mental health as well as the impact of distress on performance, relationships, and mental health. Pt shared their current personal top stressors to be: workplace culture, interpersonal relationships, and managing his mental health. Shared when feeling overwhelmed with stress pt tends to shut down or get ?snippy?. Benefited from increased awareness of positive and negative stress as well as how stress impact individuals. Will continue in IOP to prevent decompensation, increase distress tolerance, and improve dialectical thinking. Narrative Note: []
--- NOTE | 2024-07-05 11:15 | BH.SGPN.GN ---
Behaviors/Verbalizations/Mental Status: [] Pt alert and oriented, casually dressed and groomed. Eye contact good. Motor activity appropriate. Speech within normal limits. Affect congruent, mood depressed. Thoughts linear, logical, no signs of hallucinations or delusions. Client Response/Progress/Benefit: [] Pt receptive to session AEB contributing to group discussion, as well as listening attentively to others, and taking notes. Worked with group to brainstorm the positive and negative aspects of stress on physical and mental health as well as the impact of stress on performance, relationships, and mental health. Pt shared their top stressors to be: work and career, house, and certain people in his life. Shared that he would benefit from accepting and alter certain aspects of his job to improve mental health. Benefited from increased awareness of positive and negative stress as well as how stress impact individuals. Will continue in IOP to prevent decompensation,maintain safety, increase healthy coping, and improve functioning to return to work. Narrative Note: []
--- NOTE | 2024-07-05 15:49 | BH.MDN_ITS ---
Multi-Disciplinary Note Note 45-min Individual: Time Started:: 12:15 Date: 07/05/24 Purpose of session/treatment goals addressed:: Purpose of session was to address goals 1 and 2 from MTP. Eye Contact:: Good Motor Activity:: Appropriate Appearance:: Neat Speech:: Appropriate Mood:: Euthymic Affect:: Full Thoughts:: Linear, Logical and No evidence of hallucinations/delusions noted Staff Interventions:: thought challenging, CBT techniques, mindfulness skills, strengths perspective, goal setting and taught coping skills Client Response:: Client shared he completed his homework identifying things he is grateful for as well as things he is grateful for about himself. Client stated he found it to be a very cathartic homework assignment because it made him write down the things that he is grateful for which gave him more perspective on the good he has in his life. Client reported yesterday and today he has started to feel more like myself. Client reported he is having more moments in which he feels like himself but still has moments in which he feels like his emotions are numb or dimmed. Client stated he notes this is progress for him because last week he felt like he only had glimmers of himself and mostly felt numb the majority of the time. Client stated yesterday him in [facility] psychiatrist decided he would continue current medication to give it 1 more week since he is starting to see some of himself back again. Client reported yesterday he had the opportunity to go to a dinner with his and initially did not want to go. Client stated he utilized opposite action and made himself go last night and ended up really enjoying himself. Client stated he realizes if he had decided to stay home and isolate it likely would have made him feel worse and he would have missed out on the opportunities to socialize a nd have fun with others. Client stated he was reflecting on work yesterday because he has to complete his paperwork for leave. Client reported although he does not want to return to work he recognizes that he can and will return to work next month. Client and therapist discussed how he will be in a different mindset compared to where he was at last month. Client stated he also thought more about previous individual session with the things that have occurred at this job that reminds him that the toxic situations at work were not healthy for him. Client talked more about the impact his boss has had on his mental health and is upset that he allowed his bosses behaviors to impact client's own view of self. Client open for homework to start to write a letter to his boss in which he expresses his feelings and anger towards his boss, but knowing he won't be giving the letter to anyone. Client stated he has done this in the past toward someone else and found it to be very healing. Risks/Concerns:: Client denies suicidal ideation, plan, or intention to date. Identifies reasons to live. Future oriented. Progress Toward Goals/Plan:: Progress noted with client reporting starting to feel more like himself in the past couple of days. Client reporting accomplishing chores at home, using opposite action to be social, challenging negative thoughts, and openly communicating with his . Client continues to struggle with ruminations about his workplace, but noted time spent on ruminations is decreasing. client holding on to a lot of anger and hurt from things that occurred at his workplace in the last 3 months. Client willing to complete homework to help work through this anger and hurt. Client to continue IOP to reinforce healthy coping skills, challenge distorted thoughts, and prevent decompensation. Time Stopped:: 13:00
== END 2024-07-09 23:59 ==
LOC: BHIOP 08:00
PROVIDERS: PCP Internal Medicine; Referring Provider Psychiatry & Neurology Psychiatry; Visit Provider Psychiatry & Neurology Psychiatry
DX: F33.2 Major depressive disorder, recurrent severe without psychotic features (principal); F41.1 Generalized anxiety disorder; G47.33 Obstructive sleep apnea (adult) (pediatric); Z79.899 Other long term (current) drug therapy
CPT/HCPCS: S9480; 90834; 90853

== ENCOUNTER 2024-07-10 07:09 | Outpatient (RCR) | payer OTHER, SELFPAY ==
--- NOTE | 2024-07-10 09:02 | BH.SGPN.GN ---
Behaviors/Verbalizations/Mental Status: [] Pt alert and oriented, casually dressed and groomed. Eye contact good. Motor activity appropriate. Speech within normal limits. Affect congruent, mood content. Thoughts linear, logical, no signs of hallucinations or delusions. Reviewed pt?s symptom tracker, no risk for suicidal ideation, plan, or intent 07/10/24. Client Response/Progress/Benefit: []Pt was an active participant in group discussions. Attentive. Able to identify mental health wins including completing two knitting projects, as well as taking time to unplug from social media. Reports feeling better as a result. Pt's stressor today is having to return to work in 4 days, but did well to recognize he has a plan for coping. Pt is feeling at peace? this morning. Pt receptive to feedback from peers which pt reported was helpful. Progress noted. Benefited from group support, encouragement, and feedback. Will continue IOP tx to promote use of healthy coping skills and maintain mood stability. Narrative Note: []
--- NOTE | 2024-07-10 10:10 | BH.SGPN.GN ---
Behaviors/Verbalizations/Mental Status: []Client alert and oriented, neatly dressed and groomed. Eye contact good. Motor activity appropriate. Speech within normal limits. Affect congruent, mood content. Thoughts linear, logical, no signs of hallucinations or delusions. Client Response/Progress/Benefit: [] Pt responded well to session AEB sharing and listening attentively to others. Group provided examples of benefits of having social support, including: validation, get perspective, and accountability. Pt also participated in group discussion regarding the barriers to accessing support identifying examples to include: negative thinking, lack of communication, and lack of trust. Personal example identified as trying to take on too much alone. Pt participated in experiential activity illustrating the impact communication, boundaries, and patience play in creating healthy support systems. Pt appeared to benefit from increased knowledge of the benefits of social support and greater self-awareness. Pt to continue IOP to improve self-compassion, reduce negative thinking patterns, and improve daily functioning. Narrative Note: []
--- NOTE | 2024-07-10 11:10 | BH.SGPN.GN ---
Behaviors/Verbalizations/Mental Status: []Client alert and oriented, casually dressed and groomed. Eye contact good. Motor activity appropriate. Speech within normal limits. Affect congruent, mood euthymic. Thoughts linear, logical, no signs of hallucinations or delusions. Client Response/Progress/Benefit: [] Pt participated throughout AEB contributing to discussion, providing examples, and taking notes. Pt provided input during discussion on the types of support our supports can provide. Pt able to identify current support system and barriers that get in the way of using supports. Pt reported after identifying what type of supports pt receives, pt gained awareness that pt could benefit from more social support by putting more effort into reaching out to his friends. Pt seemed to benefit from identifying the type of support pt needs to work on improving. Pt recommended to continue IOP tx to promote increase positive self-talk, work through inappropriate guilt, and prevent decompensation.
--- NOTE | 2024-07-11 09:00 | BH.SGPN.GN ---
Behaviors/Verbalizations/Mental Status: [] Client alert and oriented, casual appearance. Eye contact good. Motor activity appropriate. Speech within normal limits. Affect congruent, mood euthymic. Thoughts linear, logical, no signs of hallucinations or delusions. Reviewed client's symptom tracker, no risk for suicidal ideation, plan, or intent. Client Response/Progress/Benefit: [] Client responded well to session AEB listening to others and sharing thoughts/feelings. Client reported mental health positive as getting his Easter decorations put up in his house. Client stated additional positive as cooking at home, which he noted does often make him feel better. Client reported current stressor as mourning the loss of his job because he doesn't know if he will able to stay at the job once he retuns. Appeared to benefit from support from peers. Will continue IOP tx to promote healthy coping skills, increase confidence in decisions, and prevent decompensation.
--- NOTE | 2024-07-11 10:10 | BH.SGPN.GN ---
Behaviors/Verbalizations/Mental Status: [] Eye contact is good. Motor activity is appropriate. Appearance is casual. Speech is Appropriate. Mood is anxious and depressed. Affect is congruent. Thoughts are linear and logical. No evidence of psychosis. Client Response/Progress/Benefit: [] Pt was an active participant in group discussions. Attentive during psychoeducation AEB note taking and completing worksheets. Worked within his small group to identify benefits of healthy sleep routine which include decreased stress, more energy, improved decision-making, improved health benefits, improved focus, and decreased anger. Pt and peers also identified the consequences of poor sleep which included irritability, crankiness, feeling on edge, increase arguments, poor emotion regulation, low energy, low motivation, and more challenging to engage with support. Also participated in discussion on the obstacles and barriers that can prevent one from obtaining good sleep. Benefited from group to increase awareness and education on importance of sleep and healthy/unhealthy choices that impact sleep. Will continue in IOP to prevent decompensation, maintain safety, increase healthy coping, and improve functioning to return to work. Narrative Note: []
--- NOTE | 2024-07-11 11:15 | BH.SGPN.GN ---
Behaviors/Verbalizations/Mental Status: []Pt alert and oriented, casually dressed and groomed. Eye contact good. Motor activity appropriate. Speech within normal limits. Affect congruent, mood anxious and content. Thoughts linear, logical, no signs of hallucinations or delusions. Client Response/Progress/Benefit: [] Pt responded well to session, participating in small group discussion. Group reviewed the rest of the ?Do?s and Don?ts? of healthy sleep hygiene. Pt worked to identify their current schedule leading up to sleep and review areas that may be helping or hindering healthy sleep. Worked with group to identify strategies to improve sleep routines. Pt identified wanting to reduce snacking after 7pm. Pt appeared to benefit from gaining insight to the different behaviors that can adversely effect sleep, as well as learning skills for improving sleep hygiene. Pt will continue IOP tx to prevent decompensation, improve daily functioning, and gain healthy coping skills. Narrative Note: []
--- NOTE | 2024-07-13 09:05 | BH.SGPN.GN ---
Behaviors/Verbalizations/Mental Status: [] Eye contact is good. Motor activity is appropriate. Appearance is casual. Speech is Appropriate. Mood is dysthymic. Affect is congruent. Thoughts are linear and logical. No evidence of psychosis. Reviewed daily check in sheet and no reports of suicidal ideations or intent. Client Response/Progress/Benefit: [] Pt was an active participant in group discussions. Attentive. Able to identify mental health wins and healthy habits. Daily symptom tracker notes 3/5 for depression. Reports feeling ?low today?. Shared a few psychosocial stressors that have been impacting his mental health. Able to engage with support and practice assertive communication skills. Limited progress. Benefited from group support, encouragement, and feedback. Will continue in IOP to maintain safety, prevent decompensation, increase healthy coping, and improve functioning to return to work. Narrative Note: []
--- NOTE | 2024-07-13 10:10 | BH.SGPN.GN ---
Behaviors/Verbalizations/Mental Status: []Pt alert and oriented, neatly dressed and groomed. Eye contact good. Motor activity appropriate. Speech within normal limits. Affect congruent, mood calm. Thoughts linear, logical, no signs of hallucinations or delusions. Client Response/Progress/Benefit: [] Pt was an active participant in group discussion and experiential activity. Attentive during psychoeducation on resilience and provided input throughout. Participated in interactive discussion with peers on the definition of resilience and where it comes from. Group identified that resiliency can be impacted by; past experiences, upbringing, and personality traits. Group also worked together to identify the benefits of being resilient and how it is related to mental health. Able to relate experiential activity of group juggle to topics of resilience. Worked with peers in small group in which they identified factors that contribute to resilience. Benefited from increased awareness of resilience and the factors that contribute to building resilience. Will continue in IOP tx to improve self-compassion, reduce negative thinking patterns, and improve daily functioning. ??? Narrative Note: []
--- NOTE | 2024-07-13 11:10 | BH.SGPN.GN ---
Behaviors/Verbalizations/Mental Status: []Pt alert and oriented, neatly dressed and groomed. Eye contact good. Motor activity appropriate. Speech within normal limits. Affect congruent, mood lethargic. Thoughts linear, logical, no signs of hallucinations or delusions. Client Response/Progress/Benefit: [] Pt responded well to session AEB completing the resilience worksheet provided. Pt actively participated in the discussion and worked cooperatively with group to identify strategies to enhance each of the components discussed. Pt reports belief they already use resilience trait of ?making connections, accepting change, and nurturing a positive view of self.? Pt discussed that they want to work on ?finding a friend who helps me with my mental health in a positive way outside of my extraordinary .? Pt seemed to benefit from discussing strategies for improving personal resilience and identifying resilience traits Pt already possesses. Will continue IOP tx to promote mood stability, reduce negative self-talk, and increase self-confidence. ? Narrative Note: []
--- NOTE | 2024-07-13 15:24 | BH.MDN ---
Multi-Disciplinary Note Note 45-min Individual: Time Started:: 12:05 Date: 07/13/24 Purpose of session/treatment goals addressed:: Purpose of session was to address goals 1 and 2 from MTP. Eye Contact:: Good Motor Activity:: Appropriate Appearance:: Neat Speech:: Appropriate Mood:: Dysthymic Affect:: Constricted Thoughts:: Linear, Logical and No evidence of hallucinations/delusions noted Staff Interventions:: thought challenging, CBT techniques, strengths perspective and goal setting Client Response:: Client shared he is feeling sad and depressed for the last three days. Client stated he was starting to feel better and thought he was adjusting to the medication, but now doesn't believe it is working. Client stated he feels the medication impacts his memory, has decreased motivation, feels tired throughout the day, and more blah and apathetic. 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 Client stated he feels like the current dosage numbs him out. Client reported beyond the medication he does believe he is mourning potentially leaving his current job because he is unsure staying at his job will be healthy for him. Client stated he plans to return to work after his leave is up, but given everything that has happened at this job with his boss he doesn't know if the environment is good for him. Client reported this makes him sad because he truly thought this job would be his forever job. 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 Client worked with therapist to discuss plan for weekend to help manage low/depressed mood. Risks/Concerns:: Client denies suicidal ideation, plan, or intention to date. Future oriented. Progress Toward Goals/Plan:: Decompensation noted with client reporting increased depressed symptoms over the last three days. Client is attributing his apathy and lower mood to his current medication high dosage. Client would like to explore decreasing his dose to see if this will have a positive impact on his mood. Client also identifies getting closer to having to return to work and needing to make a decision on what to do about work as impactful on his mood. Plan is for client to continue [facility] to promote healthy coping skills, challenge distorted thoughts, and prevent decompensation. Time Stopped:: 12:50
--- NOTE | 2024-07-13 15:24 | BH.MDN ---
Multi-Disciplinary Note Note 45-min Individual: Time Started:: 12:05 Date: 07/13/24 Purpose of session/treatment goals addressed:: Purpose of session was to address goals 1 and 2 from MTP. Eye Contact:: Good Motor Activity:: Appropriate Appearance:: Neat Speech:: Appropriate Mood:: Dysthymic Affect:: Constricted Thoughts:: Linear, Logical and No evidence of hallucinations/delusions noted Staff Interventions:: thought challenging, CBT techniques, strengths perspective and goal setting Client Response:: Client shared he is feeling sad and depressed for the last three days. Client stated he was starting to feel better and thought he was adjusting to the medication, but now doesn't believe it is working. Client stated he feels the medication impacts his memory, has decreased motivation, feels tired throughout the day, and more blah and apathetic. 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 Client stated he feels like the current dosage numbs him out. Client reported beyond the medication he does believe he is mourning potentially leaving his current job because he is unsure staying at his job will be healthy for him. Client stated he plans to return to work after his leave is up, but given everything that has happened at this job with his boss he doesn't know if the environment is good for him. Client reported this makes him sad because he truly thought this job would be his forever job. 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 Client worked with therapist to discuss plan for weekend to help manage low/depressed mood. Risks/Concerns:: Client denies suicidal ideation, plan, or intention to date. Future oriented. Progress Toward Goals/Plan:: Decompensation noted with client reporting increased depressed symptoms over the last three days. Client is attributing his apathy and lower mood to his current medication high dosage. Client would like to explore decreasing his dose to see if this will have a positive impact on his mood. Client also identifies getting closer to having to return to work and needing to make a decision on what to do about work as impactful on his mood. Plan is for client to continue [facility] to promote healthy coping skills, challenge distorted thoughts, and prevent decompensation. Time Stopped:: 12:50
--- NOTE | 2024-07-17 09:00 | BH.SGPN.GN ---
Behaviors/Verbalizations/Mental Status: [] Pt alert and oriented, casually dressed and groomed. Eye contact good. Motor activity appropriate. Speech within normal limits. Affect congruent, mood content. Thoughts linear, logical, no signs of hallucinations or delusions. Reviewed pt?s symptom tracker, no risk for suicidal ideation, plan, or intent 07/17/24. Client Response/Progress/Benefit: []Pt was an active participant in group discussions. Attentive. Able to identify mental health wins including maintaining self-care despite a change in his schedule as he visits his husbands grandmother in the hospital, additional win noted as reading his book club book. Pt's stressor today is the constant driving back and forth from [place], notes trying to use the time for self-care. Pt is feeling grateful? this morning. Pt receptive to feedback from peers which pt reported was helpful. Progress noted. Benefited from group support, encouragement, and feedback. Will continue IOP tx to promote use of healthy coping skills, increase self-compassion, and improve mood stability. Narrative Note: []
--- NOTE | 2024-07-17 09:00 | BH.SGPN.GN ---
Behaviors/Verbalizations/Mental Status: [] Pt alert and oriented, casually dressed and groomed. Eye contact good. Motor activity appropriate. Speech within normal limits. Affect congruent, mood content. Thoughts linear, logical, no signs of hallucinations or delusions. Reviewed pt?s symptom tracker, no risk for suicidal ideation, plan, or intent 07/17/24. Client Response/Progress/Benefit: []Pt was an active participant in group discussions. Attentive. Able to identify mental health wins including maintaining self-care despite a change in his schedule as he visits his husbands grandmother in the hospital, additional win noted as reading his book club book. Pt's stressor today is the constant driving back and forth from [place], notes trying to use the time for self-care. Pt is feeling grateful? this morning. Pt receptive to feedback from peers which pt reported was helpful. Progress noted. Benefited from group support, encouragement, and feedback. Will continue IOP tx to promote use of healthy coping skills, increase self-compassion, and improve mood stability. Narrative Note: []
--- NOTE | 2024-07-17 10:10 | BH.SGPN.GN ---
Behaviors/Verbalizations/Mental Status: [] Pt alert and oriented, casually dressed and groomed. Eye contact good. Motor activity appropriate. Speech within normal limits. Mood: depressed. Affect: congruent. Thoughts linear, logical, no signs of hallucinations or delusions. Client Response/Progress/Benefit: [] Pt was an active participate during group discussions. Attentive during psychoeducation on self-sabotage and its impact on mental health. Worked with peers to identify reasons individuals perform self-sabotage behaviors (fear of change, habitual, low self-esteem,confirm mistaken beliefs, false sense of control). Pt identified the forms of self-sabotage that impact their mental health the most which included people-pleasing, not prioritizing self, and no limits/boundaries. Seemed to benefit from gaining awareness about the self-sabotage. Pt to continue IOP tx to prevent decompensation, stabilize mood, increase healthy coping, and improve functioning.
--- NOTE | 2024-07-17 11:10 | BH.SGPN.GN ---
Behaviors/Verbalizations/Mental Status: []Pt alert and oriented, neatly dressed and groomed. Eye contact good. Motor activity appropriate. Speech within normal limits. Affect congruent, mood euthymic. Thoughts linear, logical, no signs of hallucinations or delusions. Client Response/Progress/Benefit: [] Pt responded well to session, engaged and contributing. Pt worked on mental health wellness garden picture and discussed things that contribute to mental wellness life. With peers, pt discussed things that would sabotage one's mental health wellness and added it to the garden metaphor. Pt identified things he personally does to sabotage as not prioritizing self-care and people pleasing. Pt attentive during psychoeducation on ways to reduce self-sabotage and pt selected reminding himself that no is a complete sentence as the skill that could help pt reduce self-sabotaging behaviors. Pt appeared to benefit from learning skills and gaining awareness of self-sabotaging behaviors. Pt will continue IOP tx to promote mood stability, increase self-compassion, and combat distortions. Narrative Note: []
--- NOTE | 2024-07-18 09:05 | BH.SGPN.GN ---
Behaviors/Verbalizations/Mental Status: [] Eye contact is good. Motor activity is appropriate. Appearance is casual. Speech is Appropriate. Mood is depressed and anxious. Affect is congruent. Thoughts are linear and logical. No evidence of psychosis. Reviewed daily check in sheet and no reports of suicidal ideation. Client Response/Progress/Benefit: [] Pt participated at times during the group discussions. Attentive. Able to identify mental health wins and healthy habits. Reached out to positive support. Also developed strategies with spouse to set aside time once a month to assess his mental health, any warning signs, and his current functioning. Believes this will provide a time to reflect monthly with support in the hopes of prevent decompensation and crisis. Progress noted. Benefited from group support, encouragement and feedback. Will continue in IOP to maintain safety, increase healthy coping, and improve functioning to return back to work. Narrative Note: []
--- NOTE | 2024-07-18 10:10 | BH.SGPN.GN ---
Behaviors/Verbalizations/Mental Status: []Pt alert and oriented, casually dressed and groomed. Eye contact good. Motor activity appropriate. Speech within normal limits. Affect congruent, mood euthymic. Thoughts linear, logical, no signs of hallucinations or delusions. Client Response/Progress/Benefit: [] Pt engaged and actively participating in discussion, taking notes. Pt attentive during psychoeducation about the window of tolerance and noted personal connections. Group identified what contributes to low distress tolerance. The group gained awareness of the three zones of tolerance and pt was able to identify what they look like in each zone. Pt shared personal signs in hyperarousal zone are: Short and snippy, defensive, negative predictions about the future, and feel overwhelmed. Pt shared signs in the window of tolerance, they feel happy, engaging in sleep routine, working out consistently, having self-care time, and eating healthy. Pt appeared to benefit from psychoeducation on distress tolerance and practicing self-reflection. Pt will continue IOP tx to challenge negative thinking, promote utilization of healthy coping skills, and prevent decompensation.
--- NOTE | 2024-07-18 11:10 | BH.SGPN.GN ---
Behaviors/Verbalizations/Mental Status: []Pt alert and oriented, casually dressed and groomed. Eye contact good. Motor activity appropriate. Speech within normal limits. Affect congruent, mood content. Thoughts linear, logical, no signs of hallucinations or delusions. Client Response/Progress/Benefit: [] Pt responded well to session AEB taking notes and contributing to discussion throughout. Pt engaged as group continued discussion on distress tolerance and the mental health benefits of widening their overall Window of Tolerance. Pt engaged with group in experiential activity provided input on connections between variables in the activity and distress tolerance. Worked within small groups to identify strategies to increase distress tolerance and reduce hyper-arousal and hypo-arousal states. Identified wanting to begin implementing distress tolerance skills of: breaking the situation down in his head, maintaining self-awareness, and checking-in on his own body regularly. Pt appeared to benefit from gaining insight and learning strategies to increase distress tolerance. Pt will continue IOP tx to promote use of healthy coping skills, challenge negative self-talk, and prevent decompensation. Narrative Note: []
--- NOTE | 2024-07-18 14:25 | BH.MDN ---
Multi-Disciplinary Note Note 30-min Individual: Time Started:: 12:05 Date: 07/18/24 Purpose of session/treatment goals addressed:: Purpose of session was to discuss upcoming discharge and address goals 1 and 2 from [facility]. Eye Contact:: Good Motor Activity:: Appropriate Appearance:: Neat Speech:: Appropriate Mood:: Euthymic Affect:: Full Thoughts:: Linear, Logical and No evidence of hallucinations/delusions noted Staff Interventions:: CBT techniques, discharge planning, strengths perspective and other (maintenance plan) Client Response:: Client reported he is feeling significantly better since decreasing his medication dosage. Client stated starting to feel more like himself and not feeling exhausted all the time. Client shared with therapist the lists he worked on with his in which client identified signs I'm beginning to struggle with my mental health and signs of a toxic work environment. Client stated in discussing his maintenance with his they agreed the first Tuesday of every month they will sit down and reflect on the month. Client stated he believes if he does a monthly scheduled check-in it will help him catch any mental health decline so he doesn't get to the place of severe depression and feeling suicidal. Client reported he realizes he missed a lot of signs of decline in his most recent mental health struggle because he stopped checking in with himself since he had been doing so well. Client reported including his in his monthly check-ins will keep him more accountable and continue to strengthen their relationship. Client stated feeling anxious about returning to work in 2 weeks, but recognizes he is in a different place and feels more confident compared to where he was prior to getting treatment. Client reported he feels like he has more power versus prior to treatment he felt like he had to do everything to make his boss happy at the expense of his own confidence and mental health. Client stated feeling ready to discharge from [facility] next week and is grateful he chose to come back to the program. Risks/Concerns:: Denies suicidal ideation, plan, or intention to date. future oriented. Progress Toward Goals/Plan:: Progress noted with client reporting improved mood, decrease in depression, and improved functioning. Client reported responding well to recent decrease in his medication dosage which he notes has helped him feel more like himself. Client worked with therapist this session on maintenance plan. Client reporting some anxiety about returning back to work in two weeks, but feeling more confident since he is feeling mentally in a better spot. Plan is for client to discharge from [facility] next week and return to work on August 02. Time Stopped:: 12:40
--- NOTE | 2024-07-18 14:25 | BH.MDN_ITS ---
Multi-Disciplinary Note Note 30-min Individual: Time Started:: 12:05 Date: 07/18/24 Purpose of session/treatment goals addressed:: Purpose of session was to discuss upcoming discharge and address goals 1 and 2 from [facility]. Eye Contact:: Good Motor Activity:: Appropriate Appearance:: Neat Speech:: Appropriate Mood:: Euthymic Affect:: Full Thoughts:: Linear, Logical and No evidence of hallucinations/delusions noted Staff Interventions:: CBT techniques, discharge planning, strengths persp ective and other (maintenance plan) Client Response:: Client reported he is feeling significantly better since decreasing his medication dosage. Client stated starting to feel more like himself and not feeling exhausted all the time. Client reported Time Stopped:: 12:40
--- NOTE | 2024-07-18 14:25 | BH.MDN ---
Multi-Disciplinary Note Note 30-min Individual: Time Started:: 12:05 Date: 07/18/24 Purpose of session/treatment goals addressed:: Purpose of session was to discuss upcoming discharge and address goals 1 and 2 from [facility]. Eye Contact:: Good Motor Activity:: Appropriate Appearance:: Neat Speech:: Appropriate Mood:: Euthymic Affect:: Full Thoughts:: Linear, Logical and No evidence of hallucinations/delusions noted Staff Interventions:: CBT techniques, discharge planning, strengths perspective and other (maintenance plan) Client Response:: Client reported he is feeling significantly better since decreasing his medication dosage. Client stated starting to feel more like himself and not feeling exhausted all the time. Client shared with therapist the lists he worked on with his in which client identified signs I'm beginning to struggle with my mental health and signs of a toxic work environment. Client stated in discussing his maintenance with his they agreed the first Tuesday of every month they will sit down and reflect on the month. Client stated he believes if he does a monthly scheduled check-in it will help him catch any mental health decline so he doesn't get to the place of severe depression and feeling suicidal. Client reported he realizes he missed a lot of signs of decline in his most recent mental health struggle because he stopped checking in with himself since he had been doing so well. Client reported including his in his monthly check-ins will keep him more accountable and continue to strengthen their relationship. Client stated feeling anxious about returning to work in 2 weeks, but recognizes he is in a different place and feels more confident compared to where he was prior to getting treatment. Client reported he feels like he has more power versus prior to treatment he felt like he had to do everything to make his boss happy at the expense of his own confidence and mental health. Client stated feeling ready to discharge from [facility] next week and is grateful he chose to come back to the program. Risks/Concerns:: Denies suicidal ideation, plan, or intention to date. future oriented. Progress Toward Goals/Plan:: Progress noted with client reporting improved mood, decrease in depression, and improved functioning. Client reported responding well to recent decrease in his medication dosage which he notes has helped him feel more like himself. Client worked with therapist this session on maintenance plan. Client reporting some anxiety about returning back to work in two weeks, but feeling more confident since he is feeling mentally in a better spot. Plan is for client to discharge from [facility] next week and return to work on August 02. Time Stopped:: 12:40
--- NOTE | 2024-07-19 09:00 | BH.SGPN.GN ---
Behaviors/Verbalizations/Mental Status: [] Client alert and oriented, casual appearance. Eye contact good. Motor activity appropriate. Speech within normal limits. Affect congruent, mood irritable. Thoughts linear, logical, no signs of hallucinations or delusions. Reviewed client's symptom tracker, no risk for suicidal ideation, plan, or intent. Client Response/Progress/Benefit: [] Client responded well to session AEB listening to others and sharing thoughts/feelings. Client reported mental health positive as deciding to take some self-care time after running around for a full day with errands. Client reported additional mental health win as making a list for today of things wants to complete. Client reported current stressor as missing an event at work that he was supposed to plan/run. Client noted feeling empowered today. Appeared to benefit from support from peers. Will continue IOP tx to promote use of healthy coping skills, challenge negative thoughts, and prevent decompensation.
--- NOTE | 2024-07-19 10:15 | BH.SGPN.GN ---
Behaviors/Verbalizations/Mental Status: [] Eye contact is good. Motor activity is appropriate. Appearance is casual. Speech is Appropriate. Mood is anxious and depressed. Affect is congruent. Thoughts are linear and logical. No evidence of psychosis. Client Response/Progress/Benefit: [] Pt responded well to session AEB actively participating throughout group. Pt was attentive throughout group activity discussing famous individuals and how they overcame failure to be successful. Pt helped group define fear of failure as well as how it can impact mental health and relationships. Participated in experiential activity and worked with group members to problem solve. Appeared to benefit from increased knowledge of what causes fear of failure and how it impacts people. Will continue IOP tx to prevent decompensation, maintain safety, increase healthy coping, and improve functioning to return to work. Narrative Note: []
--- NOTE | 2024-07-19 11:15 | BH.SGPN.GN ---
Behaviors/Verbalizations/Mental Status: []Pt alert and oriented, neatly dressed and groomed. Eye contact good. Motor activity appropriate. Speech within normal limits. Affect congruent, mood euthymic. Thoughts linear, logical, no signs of hallucinations or delusions. Client Response/Progress/Benefit: [] Pt responded well to session, engaged in the experiential activity and attentive throughout group processing. 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 Pt completed fear of failure worksheet and was able to identify thoughts and behaviors that reinforce personal fear of failure. Pt participated in small group discussion regarding strategies to overcome fear of failure. Identified struggling most with not practicing self-care and people pleasing.? Pt will work on these by practicing ?setting boundaries and reminding myself of my worth.? Appeared to benefit from increased knowledge of strategies to combat fear of failure and gaining self-awareness. Pt will continue IOP tx to promote mood stability, reinforce healthy coping skills, and improve self-confidence. Narrative Note: []
--- NOTE | 2024-07-24 09:00 | BH.SGPN.GN ---
Behaviors/Verbalizations/Mental Status: [] Eye contact is good. Motor activity is appropriate. Appearance is casual. Speech is Appropriate. Mood is euthymic. Affect is full. Thoughts are linear and logical. No evidence of psychosis. Reviewed daily check in sheet and no reports of suicidal ideations or intent. Client Response/Progress/Benefit: [] Pt was an active participant in group discussions. Attentive. Daily symptom tracker notes / for anxiety. Able to identify mental health wins and healthy habits. He shared a recent event in which he advocated for himself and mental health in general. He reports ? feeling myself again?. Continues with consistent use of internal and external strategies for mental health. Has anxiety about returning to work next week, however has discussed this extensively with his therapist and spouse. Benefited from group support, encouragement, and feedback. Will continue in IOP to maintain safety, stabilize mood, and improve functioning. Narrative Note: []
--- NOTE | 2024-07-24 10:15 | BH.SGPN.GN ---
Behaviors/Verbalizations/Mental Status: [] Pt alert and oriented, casually dressed and groomed. Eye contact good. Motor activity appropriate. Speech within normal limits. Affect congruent, mood euthymic. Thoughts linear, logical, no signs of hallucinations or delusions. Client Response/Progress/Benefit: [] Pt was an engaged participant AEB listening attentively to others, taking notes, and providing feedback in group discussions. Attentive during psychoeducation AEB by note taking. Pt worked along with peers in groups to define inappropriate guilt and appropriate guilt. Group worked together to provide examples of both inappropriate and appropriate guilt. Group identified a car accident and snapping at kids as appropriate guilt examples. Group identified setting a boundary and being a victim as having inappropriate guilt about. Pt able to connect impact inappropriate guilt can have on MH and overall functioning. Benefited from increased awareness of guilt and the differences between appropriate and inappropriate guilt. Pt to continue IOP tx to prevent decompensation and increase emotional regulation skills. Narrative Note: []
--- NOTE | 2024-07-24 11:15 | BH.SGPN.GN ---
Behaviors/Verbalizations/Mental Status: [] Pt alert and oriented, casually dressed and groomed. Eye contact good. Motor activity appropriate. Speech within normal limits. Affect congruent, mood euthymic. Thoughts linear, logical, no signs of hallucinations or delusions. Client Response/Progress/Benefit: [] Pt was an engaged participant AEB listening attentively to others and providing input throughout group. Pt along with group members, identified strategies to manage inappropriate guilt. Identified a personal example of inappropriate guilt as ?putting needs first? Pt wants to work on combatting inappropriate guilt by practicing self forgiveness.? Pt seemed to benefit from learning about strategies to manage appropriate and inappropriate guilt. Pt to continue IOP tx to prevent decompensation and increase emotional regulation skills. Narrative Note: []
--- NOTE | 2024-07-25 09:00 | BH.SGPN.GN ---
Behaviors/Verbalizations/Mental Status: [] Pt alert and oriented, casually dressed and groomed. Eye contact good. Motor activity appropriate. Speech within normal limits. Affect congruent, mood content. Thoughts linear, logical, no signs of hallucinations or delusions. Reviewed pt?s symptom tracker, no risk for suicidal ideation, plan, or intent 07/25/24. Client Response/Progress/Benefit: []Pt was an active participant in group discussions. Attentive. Able to identify mental health wins including going shopping with his mother as well as writing letters of appreciation for his co-workers prior to his last day. Pt's stressor today is some guilt about leaving the position but is reminding himself of the importance in doing so. Pt is feeling encouraged? this morning. Pt receptive to feedback from peers which pt reported was helpful. Progress noted. Benefited from group support, encouragement, and feedback. Will continue IOP tx to promote use of healthy coping skills, increase self-compassion, and improve mood stability. Narrative Note: []
--- NOTE | 2024-07-25 10:13 | BH.SGPN.GN ---
Behaviors/Verbalizations/Mental Status: [] Pt alert and oriented, casually dressed and groomed. Eye contact fair. Motor activity appropriate. Speech within normal limits. Affect congruent, mood euthymic. Thoughts linear, logical, no signs of hallucinations or delusions. Client Response/Progress/Benefit: [] Client receptive of session, actively engaged throughout AEB taking notes and providing input and examples to discussion. Appeared to connect with group topic of cognitive distortions and the impact of thought patterns on mental health, coping behaviors, and relationships. Client appeared to benefit from gaining insight on distorted thinking patterns and how this impacts overall mental health.Will continue IOP tx to , increase self-compassion and prevent decompensation. Narrative Note: []
--- NOTE | 2024-07-25 11:13 | BH.SGPN.GN ---
Behaviors/Verbalizations/Mental Status: [] Pt alert and oriented, casually dressed and groomed. Eye contact fair. Motor activity appropriate. Speech within normal limits. Affect congruent, mood euthymic. Thoughts linear, logical, no signs of hallucinations or delusions. Client Response/Progress/Benefit: [] Client responded well to session AEB input and examples during group activity. Group discussed and practiced methods of reframing cognitive distortions. Client participated in identifying cognitive distortions when examples were provided. Client discussed in group the different strategies to overcome the distortions. Client identified cognitive distortion that they used most often was jumping to conclusions. Client made plan to identify and challenge thoughts that contribute to it as homework over the next couple of days. Will continue tx to improve distress tolerance skill application and increase functioning. Narrative Note: []
--- NOTE | 2024-07-25 11:28 | PCM.BH.PN ---
Progress Note Progress Note: History of Present Illness/Interim History: The patient is a 49-year-old male with a history of depression and anxiety who is seen in follow-up at the [facility] behavioral health IOP. I last saw the patient 3 weeks ago and at that time his Cymbalta was decreased back to 30 mg p.o. daily. The patient states that he feels much better than when he started the program. He feels ready for discharge and feels he is learned valuable skills to help cope with his mental health issues. Per staff he has been consistent in his attendance and engaged in the program. He will return to work at his old job for 4 days and then go on vacation. He has another job lined up for when he returns from vacation and feels good about leaving the prior job. He feels his depression is pretty much resolved. He denies passive thoughts of , suicidal ideation, homicidal ideation, hallucinations or delusions. No alcohol or substance use. Current Psychiatric Medications: [] Cymbalta 30 mg p.o. daily (dose decreased 3 weeks ago). Mental Status Examination: [] The patient is a 49-year-old male who appears normal for stated age and is casually dressed and groomed with good hygiene. He has no psychomotor agitation or retardation. He is cooperative and pleasant during the interview. Eye contact is good and speech is normal rate and rhythm and fluent with no pressure. Mood is mildly anxious. Affect is full and normal. Thought process is goal-directed and organized. Thought content: Patient is hopeful for the future. There is no evidence of passive thoughts of , suicidal ideation, homicidal ideation, hallucinations or delusions. Reality testing is intact. Judgment is intact. Insight is good. Impulsivity is low. Diagnoses: [] 1. Major depressive disorder, recurrent, in full remission 2. Generalized anxiety disorder 3. Obstructive sleep apnea using CPAP 4. Work issues Plan: [] The patient will be discharged in 2 days as his condition has greatly improved. He will continue to follow-up with his outpatient providers and plans to see a new counselor also's soon. No medication changes were made today.
--- NOTE | 2024-07-27 09:00 | BH.SGPN.GN ---
Behaviors/Verbalizations/Mental Status: [] Eye contact is good. Motor activity is appropriate. Appearance is casual. Speech is Appropriate. Mood is euthymic. Affect is full. Thoughts are linear and logical. No evidence of psychosis. Reviewed daily check in sheet and no reports of suicidal ideations or intent. Client Response/Progress/Benefit: [] Pt was an active participant in group discussion. Attentive. Daily symptom tracker notes 04/15 for depression and anxiety. Shared with the group that today is his last day in [facility] as he is set to discharge successfully. Elaborated on the events that led to admission and his progress throughout the program. Feeling ?thankful?. He is returning to work next week and feels ?prepared? however is anxious and uncertain as well. The groups and topics he found most beneficial were boundaries and resiliency. Progress noted. Benefited from group support. Will be discharged today. Narrative Note: []
--- NOTE | 2024-07-27 09:00 | BH.SGPN.GN ---
Behaviors/Verbalizations/Mental Status: [] Eye contact is good. Motor activity is appropriate. Appearance is casual. Speech is Appropriate. Mood is euthymic. Affect is full. Thoughts are linear and logical. No evidence of psychosis. Reviewed daily check in sheet and no reports of suicidal ideations or intent. Client Response/Progress/Benefit: [] Pt was an active participant in group discussion. Attentive. Daily symptom tracker notes 04/15 for depression and anxiety. Shared with the group that today is his last day in [facility] as he is set to discharge successfully. Elaborated on the events that led to admission and his progress throughout the program. Feeling ?thankful?. He is returning to work next week and feels ?prepared? however is anxious and uncertain as well. The groups and topics he found most beneficial were boundaries and resiliency. Progress noted. Benefited from group support. Will be discharged today. Narrative Note: []
--- NOTE | 2024-07-27 10:15 | BH.SGPN.GN ---
Behaviors/Verbalizations/Mental Status: [] Client alert and oriented, casually dressed and groomed. Eye contact good. Motor activity appropriate. Speech within normal limits. Affect congruent, mood content. Thoughts linear, logical, no signs of hallucinations or delusions. Client Response/Progress/Benefit: [] Pt engaged in session AEB client listening attentively to peers and providing input. Attentive and contributed to discussion as group worked on defining self-forgiveness and identifying mental health benefit. Identified benefits as: reduce guilt/shame, increase self-confidence, decrease negative self-talk, healthier relationships, ect. ?Worked in small groups to identify factors that can make self-forgiveness difficult. Pt identified a personal barrier to self-forgiveness as fear of judgement and feeling he does not deserve it. Benefited from increased education on self-forgiveness, benefits, and what effects it. Pt will d/c from [facility] tx on this date and continue in individual outpatient. Narrative Note: []
--- NOTE | 2024-07-27 10:15 | BH.SGPN.GN ---
Behaviors/Verbalizations/Mental Status: [] Client alert and oriented, casually dressed and groomed. Eye contact good. Motor activity appropriate. Speech within normal limits. Affect congruent, mood content. Thoughts linear, logical, no signs of hallucinations or delusions. Client Response/Progress/Benefit: [] Pt engaged in session AEB client listening attentively to peers and providing input. Attentive and contributed to discussion as group worked on defining self-forgiveness and identifying mental health benefit. Identified benefits as: reduce guilt/shame, increase self-confidence, decrease negative self-talk, healthier relationships, ect. ?Worked in small groups to identify factors that can make self-forgiveness difficult. Pt identified a personal barrier to self-forgiveness as fear of judgement and feeling he does not deserve it. Benefited from increased education on self-forgiveness, benefits, and what effects it. Pt will d/c from [facility] tx on this date and continue in individual outpatient. Narrative Note: []
--- NOTE | 2024-07-27 11:15 | BH.SGPN.GN ---
Behaviors/Verbalizations/Mental Status: [] Client alert and oriented, casually dressed and groomed. Eye contact good. Motor activity appropriate. Speech within normal limits. Affect congruent, mood euthymic. Thoughts linear, logical, no signs of hallucinations or delusions. Client Response/Progress/Benefit: [] Pt engaged in session AEB client listening attentively to peers and providing input. Attentive during psychoeducation on the 4 R?s of Self-Forgiveness (Responsibility, Remorse, Gnosticism, Renewal). Contributed to discussion as group worked on identifying strategies for improving ability to practice self-forgiveness. Reports wanting to practice thought challenging and positive affirmations. Engaged in self-forgiveness activity and benefited from increased education on self-forgiveness building skills. Pt will continue outpatient tx to maintain gains and prevent decompensation. Narrative Note: []
--- NOTE | 2024-07-27 13:51 | BH.DS ---
Discharge Summary Demographics Date of Admission:: 07/02/24 Discharge Date: 07/27/24
--- NOTE | 2024-07-27 13:51 | BH.DS ---
Discharge Summary Demographics Date of Admission:: 07/02/24 Discharge Date: 07/27/24
--- NOTE | 2024-07-27 14:00 | BH.MDN ---
Multi-Disciplinary Note Note 30-min Individual: Time Started:: 10:15 Date: 07/27/24 Purpose of session/treatment goals addressed:: Purpose of session was to address progress while in program and plan for discharge. Eye Contact:: Good Motor Activity:: Appropriate Appearance:: Neat Speech:: Appropriate Mood:: Euthymic Affect:: Congruent Thoughts:: Linear Staff Interventions:: motivational interviewing, discharge planning and strengths perspective Client Response:: Client reported feel hopeful today with discharging and is in a much more healthier place mentally compared to when starting program. Client reports he has acquired new coping skills and thought processes to take with him when he discharges. Client did report some ruminating anxious thoughts on returning to work next week, but will utilize thought stopping techniques to manage. Client identified that he has a session with his primary therapist the morning before he goes into work to help manage the anxiety and stress. Client reports that he will try to enjoy his holiday weekend with family and not focus on work next week. Client shared that he is excited for is vacation after next week and his future new job. Risks/Concerns:: Denies suicidal thoughts, plan, or intention to date. Future oriented. Progress Toward Goals/Plan:: Progress noted with client identifying skills learned in IOP program, increased functioning, and decrease in negative symptomology. Plan is to have client discharge program today and come into aftercare after he gets back from vacation. Time Stopped:: 10:32
== END 2024-07-27 12:28 | disposition home or self-care (01) ==
LOC: BHIOP 07:09
PROVIDERS: PCP Internal Medicine; Referring Provider Psychiatry & Neurology Psychiatry; Visit Provider Psychiatry & Neurology Psychiatry
DX: F33.9 Major depressive disorder, recurrent, unspecified (principal); F41.1 Generalized anxiety disorder; G47.33 Obstructive sleep apnea (adult) (pediatric)
CPT/HCPCS: S9480; 90832; 90834; 90853

== ENCOUNTER 2024-09-19 12:11 | Emergency (ER) | payer OTHER, SELFPAY ==
[2024-09-19 12:11] VITALS: BP 122/86; PULSE 128; RESP 18; TEMP 37.8; O2SAT 97; BMI 30.1
[2024-09-19 14:35] VITALS: BMI 29.6
[2024-09-19 14:37] VITALS: BP 144/89; PULSE 113; RESP 16; TEMP 39; O2SAT 98
--- NOTE | 2024-09-19 14:55 | RAD_ITS ---
PROCEDURE: CHEST PA AND LATERAL 09/19/2024 REASON FOR EXAM: FEVER AND COUGH TECHNIQUE: Frontal and lateral views of the chest. COMPARISON: 09/17/2020. FINDINGS: The heart is normal in size. Mild left basilar linear atelectasis. No acute osseous abnormalities. RAD/Chest PA and Lateral IMPRESSION: No acute cardiopulmonary abnormalities. Mild left basilar atelectasis. Reading Location: [place] [id number]
[2024-09-19] MEDS: Acetaminophen 500 MG Tablet 1000 MG PO (15:25)
[2024-09-19] MEDS: 0.9% Normal Saline (1000mL) 1,000 ML 1000 ML IV (15:29)
[2024-09-19 15:31] VITALS: BP 156/96; PULSE 108; RESP 24; TEMP 38; O2SAT 100
--- NOTE | 2024-09-19 15:45 | EX.ED.DYSGE1 ---
HPI History of Present Illness Chief Complaint: Fever Informant: patient Onset/Context/Timing Onset: Days Context: Gradual Onset Timing: Continuous Current Severity: Mild Maximum Severity: Mild Narrative Narrative: 49-year-old male says since Tuesday has been feeling well has had a fever as high as 104. He went to the [facility] urgent care the other day. States he had a negative COVID flu and strep test. Last night he started having chills with the fever. And he wanted further evaluation. He said 1 time he had a scrotal abscess in 1 to make sure he did not have 1 again but he denies any scrotal pain. Denies any dysuria. Prior similar symptoms: Yes Recent Illness/Hospitalization: No [facility] Medical History Major depressive disorder, recurrent severe without psychotic features Generalized anxiety disorder KEYLA on CPAP Hernia Home Medications ?Medication ?Instructions ?Recorded ?Last Taken ?Type cetirizine 10 mg capsule (Zyrtec) 10 mg PO DAILY 04/02/18 09/19/18 History fluticasone propionate 50 2 sprays IH DAILY 09/20/18 09/19/18 History mcg/actuation nasal spray,suspension alprazolam 0.25 mg tablet (Xanax) 0.25 mg PO DAILY PRN PRN Anxiety 10/29/20 Unknown History cholecalciferol (vitamin D3) 50 50 mcg PO DAILY 06/20/24 Unknown History mcg (2,000 unit) tablet (Vitamin D3) meloxicam 15 mg tablet 15 mg PO DAILY 06/20/24 Unknown History duloxetine 60 mg capsule,delayed 60 mg PO DAILY 30 days #30 caps 07/04/24 Unknown Rx release (Cymbalta) Allergy/AdvReac Type Severity Reaction Status Date / Time prochlorperazine (From AdvReac Other Verified 09/19/24 12:11 Compazine) Surgical History History of tonsillectomy History of hernia repair History of appendectomy Social History Smoking Status: Never smoker ROS ROS ED ROS Narrative Fever. Chills. Denies rash. Denies shortness of breath. Denies abdominal pain. Does have a nonproductive cough. Constitutional Constitutional ED: Reports chills and fever(s) Eyes Eyes: Denies blurry vision ENT ENT ED: Denies ear pain, rhinorrhea or sore throat Cardiovascular Cardiovascular: Denies chest pain Respiratory/Chest Respiratory/Chest: Reports cough; Denies dyspnea or dyspnea on exertion Gastrointestinal Gastrointestinal: Denies abdominal pain, diarrhea, nausea or vomiting Genitourinary Genitourinary ED: Denies dysuria or hematuria Musculoskeletal Musculoskeletal: Denies arthralgias or back pain Integumentary Denies abscess Neurologic Neurologic: Denies headache(s) Psychiatric Psychiatric: Denies anxiety Endocrine Endocrinology: Denies cold intolerance Hematologic/Lymphatic Hematologic/Lymphatic: Reports none Allergic/Immunologic Allergic/Immunologic ED: Denies mouth swelling, tongue swelling or urticaria EXAM Physical Exam Narrative Exam Narrative: 49-year-old male sitting upright in bed. Vital signs are stable. He does have a fever of 102.2. Pulse ox 98% on room air no signs of hypoxia. H EENT exam TMs are unremarkable bilaterally. Small wax. Posterior pharynx normal. No erythema or exudate. No trouble swallowing or breathing. Neck nontender. No meningismus. No lymphadenopathy. Able to touch chin to chest. Lungs clear to auscultation bilaterally. Dry cough. Heart tachycardic 115 no murmur. Chest wall ribs nontender. Abdomen soft nontender. No peritoneal signs. No right upper or right lower quadrant tenderness. Back nontender no rash. Moving all 4 extremities. Nontender no edema. No cellulitis. Neurologically is awake and alert. External exam patient was concerned he might have a scrotal abscess. His external genitalia is nontender. No redness. No abscess. No skin changes. Normal in appearance. Const Vital Signs: 09/19/24 12:11 09/19/24 14:37 09/19/24 14:38 Temperature 100.1 F H 102.2 F H Temperature Source Oral Oral Pulse Rate 128 H 113 H Respiratory Rate 18 16 Respiratory Effort Normal Non-Labored Respiratory Pattern Normal Blood Pressure 122/86 H 144/89 H Blood Pressure Mean 98 107 Pulse Ox 97 98 Oxygen Delivery Method Room Air Room Air 09/19/24 15:31 09/19/24 16:00 Temperature 100.4 F H 101.9 F H Temperature Source Oral Oral Pulse Rate 108 H 109 H Respiratory Rate 24 H 20 H Respiratory Effort Respiratory Pattern Blood Pressure 156/96 H 153/59 H Blood Pressure Mean 116 90 Pulse Ox 100 97 Oxygen Delivery Method Room Air Room Air Positive well nourished and well developed; Negative for cachectic, contractures or unkempt General Appearance ED: well developed and NAD; Negative for unkempt, cachectic, contractures, cyanotic, diaphoretic or pallor Nutritional Appearance: Negative for cachectic HEENT Reports moist mucous membranes Eyes PERRL and EOMs intact bilaterally General Eye ED: Negative for pale conjunctiva or scleral icterus Neck no lymphadenopathy, supple and no JVD General: Negative for tenderness Chest Wall inspection of chest normal and palpation of chest normal Resp normal respiratory effort and clear to auscultation bilaterally Auscultation: Negative for rales, rhonchi, wheezes or diminished lung sounds Cardio regular rhythm, S1 normal heart sound, S2 normal heart sound and no murmurs; Negative for regular rate Rate: tachycardic GI normal to inspection, nondistended, normoactive bowel sounds, non-tender, non-distended and no masses Auscultation: normoactive bowel sounds Palpation: soft; Negative for tender, guarding, mass or rebound tenderness present Narrative: Unremarkable. Normal exam. No rash. No cellulitis. No abscess. Back/Spine no CVA tenderness General Back: Negative for CVA tenderness Cervical Spine: Negative for cervical spine tenderness Thoracic Spine / Upper Back: Negative for thoracic spinal tenderness or paraspinal muscle tenderness Lumbar Spine / Lower Back: Negative for lumbar spinal tenderness Extremity normal to inspection General Extremety ED: Negative for edema or tenderness General Extremity: Negative for edema Neuro oriented x3 and CN's II-XII intact bilaterally Sensorium / Orientation: alert; Negative for orientation impaired, lethargic or stuporous Motor Exam: strength 5/5 throughout Psych mental status grossly normal Appearance: Negative for unkempt Attitude: No agitated Mood & Affect: Negative for depressed, anxious or tearful Skin no rashes or lesions noted and no wounds Skin Narrative: No abscesses. No rashes. External exam unremarkable. General Skin Exam: Negative for jaundice or pallor Lesions: No lesion noted Rashes: No rashes noted Trauma: Negative for abrasion Wounds: Negative for wounds noted MDM MDM MDM Narrative Medical decision making narrative: 49-year-old male with fever. Clinically does not look septic. Suspect URI may be viral rule out pneumonia versus other causes of fever and infection. Screening labs. IV fluids. Tylenol. Repeat exam patient is doing well at 4:55 PM. Resting comfortably. We went over his test results. We are waiting for the microscopic urinalysis. There is no signs currently of a bacterial infection. Repeat exams unchanged. Again no rashes. No cellulitis. No petechiae or purpura. Lungs are clear. Abdomen soft and nontender. Patient is comfortable being discharged home. Fluids. Alternate Tylenol and Motrin for fever. Follow-up if not improving or return if worse. History & Record Review Discussion w/independent historian: Patient Additional record(s) reviewed:: Prior inpatient record, Prior outpatient record, Prior ED visit and Prior labs Lab Data Attestation: I reviewed the patient's lab results. Lab results narrative: CBC shows a white count 12.4. H&H 14 and 42. Platelets 229. Urinalysis negative. No nitrites Chemistries show sodium 137. Gap 12. Normal BUN of 11 creatinine 1.1. Glucose 108 liver enzymes normal. Chest x-ray no acute abnormality. COVID, flu and RSV are negative. Labs: Laboratory Results - last 24 hr 09/19/24 15:34 WBC 12.4 H RBC 4.87 Hgb 14.4 Hct 42.1 MCV 86.4 MCH 29.6 MCHC 34.2 RDW Std Deviation 42.3 RDW Coeff of Francie 13.3 Plt Count 229 MPV 9.3 Immature Gran % (Auto) 0.400 Neut % (Auto) 77.1 H Lymph % (Auto) 13.2 L [place] % (Auto) 9.0 Eos % (Auto) 0.1 Baso % (Auto) 0.2 Absolute Neuts (auto) 9.5 H Absolute Lymphs (auto) 1.64 Nucleated RBC % 0 Sodium 137 Potassium 3.6 Chloride 101 Carbon Dioxide 24.7 Anion Gap 12 BUN 11 Creatinine 1.13 Estim Creat Clear Calc 93.66 Est GFR (MDRD) Non-Af 80 BUN/Creatinine Ratio 10.0 Glucose 108 H Calcium 9.0 Total Bilirubin 0.79 AST 17 ALT 31 Alkaline Phosphatase 79 Total Protein 7.5 Albumin 4.3 Globulin 3.2 Albumin/Globulin Ratio 1.3 Urine Color Yellow Urine Clarity Clear Urine pH 6.5 Ur Specific [place] 1.010 Urine Protein 30 H Urine Glucose (UA) Normal Urine Ketones 5 H Urine Occult Blood 10 H Urine Nitrite Negative Urine Bilirubin Negative Urine Urobilinogen 1 H Ur Leukocyte Esterase Negative Radiography Chest X-Ray - ED: 2 View, Read by ED Physician, Normal, Heart, Lungs, Mediastinum, Bony Structures, No Acute Disease and Chronic Changes Diagnostic Testing: Clinical Impression(s) from Imaging Studies Chest X-Ray 09/19/24 14:55 IMPRESSION: No acute cardiopulmonary abnormalities. Mild left basilar atelectasis. Reading Location: [place] [id number] Chest x-ray, 2 views, AP and lateral, interpreted by myself shows normal cardiac silhouette. Normal lung macdonald. No pneumonia. No effusions. Discharge Plan Triage Chief Complaint: Fever Other Complaint: Abscess ED Provider: Tyolr Wheeler Dx/Rx/DC Orders Clinical Impression: Fever, Viral syndrome Instructions: ED Viral Syndrome (Adult) Prescriptions: No Action Zyrtec 10 MG capsule 10 mg PO DAILY fluticasone propionate 1 SPRAY spray,suspension 2 sprays IH DAILY Patient Comments: Use 2 Sprays in each nostril once daily. Rinse mouth after use. alprazolam [Xanax] 0.25 mg Tablet 0.25 mg PO DAILY PRN PRN (Reason: Anxiety) meloxicam 15 mg tablet 15 mg PO DAILY cholecalciferol (vitamin D3) [Vitamin D3] 50 mcg (2,000 unit) tablet 50 mcg PO DAILY duloxetine [Cymbalta] 60 mg capsule,delayed release(DR/EC) 60 mg PO DAILY 30 Days Qty: 30 0RF Primary Care Provider: Francisco Javier Osorio Referrals: Francisco Javier Osorio MD [Primary Care Provider] - 3-5 Days if not improving Activity Restrictions/Additional Instructions: Plenty of fluids and rest. No signs of any bacterial infection. Alternate Tylenol and Motrin for fever. Follow-up with your doctor if not improving or return emergency department if you are feeling worse. No need for any antibiotics at this time. Print Language: Armenian Disposition Disposition: Home, Self Care
[2024-09-19 15:56] LABS: Bacteria 0 SEEN /hpf (None Seen); Mucous, Urine 0 SEEN /hpf (<or=2+)
[2024-09-19 15:57] LABS: Absolute Lymphocyte Count 1.64 X10^3/uL (0.83-4.51); Absolute Neutrophil Count 9.5 X10^3/uL (2.0-7.7); Basophil# 0.02 X10^3/uL; Basophil% 0.2 % (0-1); Eosinophil# 0.01 X10^3/uL; Eosinophils% 0.1 % (0-5); Hematocrit 42.1 % (40-54); Hemoglobin 14.4 g/dL (13.0-16.5); Lymphocyte # 1.64 X10^3/ul (0.83-4.51); Lymphocyte % 13.2 % (19-41); Mean Corp Hgb Conc 34.2 g/dL (32-36); Mean Corpuscular Hgb 29.6 pg (27.0-32.0); Mean Corpuscular Volume 86.4 fL (80-94); Mean Platelet Vol. 9.3 fl (6.2-12.0); Monocyte# 1.12 X10^3/uL; NRBC Flagged by Analyzer 0 % (0-5); Neutrophil # 9.54 X10^3/uL (2.7-7.7); Neutrophil % 77.1 % (47-70); Platelet Count 229 K/mm3 (150-450); RBC Distribution Width CV 13.3 % (11.6-14.6); RBC Distribution Width SD 42.3 fl (35.1-43.9); Red Blood Count 4.87 M/mm3 (4.6-6.2); White Blood Count 12.4 K/mm3 (4.4-11.0)
[2024-09-19 16:00] VITALS: BP 153/59; PULSE 109; RESP 20; TEMP 38.8; O2SAT 97
[2024-09-19 16:03] LABS: Color, Urine Yellow (Yellow); Glucose, Dipstick Normal (Normal); Ketone-Dipstick 5 mg/dl (Negative); Leukocyte Esterase-Dipstick Negative /ul (Negative); Nitrite-Dipstick Negative (Negative); Occult Blood-Urine 10 /ul (Negative); Protein-Dipstick 30 mg/dl (Negative); Urine Bilirubin Dipstick Negative (Negative); Urine Clarity Clear (Clear); Urine Urobilinogen 1 mg/dl (Normal); Urine pH 6.5 (5.0 - 8.0)
[2024-09-19 16:19] LABS: ALB/GLOB Ratio 1.3 RATIO (0.9-2.4); AST(SGOT) 17 U/L (<=37); Alanine Aminotransfer ALT/SGPT 31 U/L (<=46); Albumin, Serum 4.3 g/dL (3.5-5.0); Alkaline Phosphatase 79 U/L (40-129); Anion Gap 12 (5-15); BUN 11 mg/dL (4-19); Carbon Dioxide 24.7 mmol/L (21.0-32.0); Chloride 101 mmol/L (98-108); Creatinine, Serum 1.13 mg/dL (0.70-1.20); EST Glomerular Filtration Rate 80 (>60); Estimated Creatinine Clearance 93.66 ml/min (50-250); Globulin 3.2 g/dL (2.2-4.2); Glucose 108 mg/dL (70-99); Potassium 3.6 mmol/L (3.3-5.1); Protein, Total 7.5 g/dL (5.9-8.4); Sodium Level 137 mmol/L (133-145); Total Bilirubin 0.79 mg/dL (0.00-1.30)
[2024-09-19 17:00] VITALS: BP 136/72; PULSE 112; RESP 17; TEMP 37.7; O2SAT 96
[2024-09-19 17:20] LABS: Red Blood Cells-Urine 0-5 SEEN /hpf (0-5); Squamous Epithelial Cells - UA 0-5 SEEN /hpf (0-5); White Blood Cells 0-5 SEEN /hpf (0-5)
[2024-09-19 17:45] VITALS: BP 132/71; PULSE 109; RESP 18; TEMP 37.7; O2SAT 97
== END 2024-09-19 17:46 | disposition home or self-care (01) ==
PROVIDERS: Emergency Provider Emergency Medicine; PCP Internal Medicine; Visit Provider Emergency Medicine
DX: R50.9 Fever, unspecified (principal); B34.9 Viral infection, unspecified; R05.9 Cough, unspecified; G47.33 Obstructive sleep apnea (adult) (pediatric); Z99.89 Dependence on other enabling machines and devices; F41.1 Generalized anxiety disorder; F32.9 Major depressive disorder, single episode, unspecified
CPT/HCPCS: 36415; 71046; 80053; 81001; 85025; 87040; 87631; 96360; 99285; A4216

== ENCOUNTER 2025-03-07 19:25 | Emergency (ER) | payer OTHER, SELFPAY ==
[2025-03-07 19:26] VITALS: BP 152/76; PULSE 122; RESP 32; TEMP 36.9; O2SAT 100
[2025-03-07 19:31] VITALS: BP 152/76; PULSE 122; RESP 32; TEMP 36.9; O2SAT 100
[2025-03-07 20:23] VITALS: BMI 31.3
--- NOTE | 2025-03-07 20:23 | EKG12_ITS ---
Test Reason : DYSRHYTHMIA Blood Pressure : */* mmHG Vent. Rate : 107 BPM Atrial Rate : 107 BPM P-R Int : 148 ms QRS Dur : 102 ms QT Int : 322 ms P-R-T Axes : 38 -57 9 degrees QTcB Int : 429 ms Sinus tachycardia Left axis deviation Low voltage QRS Incomplete right bundle branch block Inferior infarct (cited on or before 08-Mar-2017) Cannot rule out Anterior infarct (cited on or before 17-Sep-2020) Abnormal ECG When compared with ECG of 17-Sep-2020 21:52, Incomplete right bundle branch block is now Present Confirmed by Perry Ly ([id number]), online editor CORBIN CLEARY ([id number]) on 03/11/2025 1:53:13 PM Referred By: Confirmed By: Perry Ly
--- NOTE | 2025-03-07 20:33 | EX.ED.GENINJ ---
HPI History of Present Illness Chief Complaint: Other, Pain/Inj Narrative Narrative: Chief complaint and HPI: 50-year-old male with past medical history of depression, anxiety, KEYLA on CPAP presents for evaluation of anal abscess, body aches, fever. Patient states for the past several days he has had an abscess of the anal region. He states that he was seen in [facility] emergency department in which she had a CT abdomen and pelvis. States that he was told that he could not have an I&D as it was too close to the sphincter and could cause incontinence. He states that he is scheduled outpatient to have a colonoscopy and follow-up with Dr. Blair. Patient was placed on Bactrim. Patient states since yesterday he has had a cough, fevers, body aches, pain in the abscess region. He denies any headache, shortness of breath, chest pain, abdominal pain, nausea, vomiting, dysuria. Review of systems: See HPI Medications: As listed on the chart Allergies: As listed on the chart PFSH: Per chart Vital signs: As listed on the chart. Reviewed. Physical exam: Gen: A&O x3 Head: Normocephalic, atraumatic Eyes: No sclera icterus, conjunctiva clear, PERRL, EOMI ENT: TMs clear BL, moist mucous membranes, posterior oropharynx unremarkable, uvula midline Neck: Trachea midline, Full ROM, No meningismus CV: Tachycardic, regular rhythm, no murmurs, no peripheral edema Resp: Lungs CTA BL, no w/r/c, + cough GI: Abd soft, non-distended, non-tender, no r/r/g, abscess to the left buttocks in the gluteal crease next to the anus-tender/erythematous/warm/central purulent Musc: Moves all extremities, no deformity Skin: Warm, diaphoretic Neuro: Alert, oriented, grossly intact, sensation intact Psych: Cooperative [facility] Medical History Major depressive disorder, recurrent severe without psychotic features Generalized anxiety disorder KEYLA on CPAP Hernia Home Medications ?Medication ?Instructions ?Recorded ?Last Taken ?Type cetirizine 10 mg capsule (Zyrtec) 10 mg PO DAILY 04/02/18 09/19/18 History fluticasone propionate 50 2 sprays IH DAILY 09/20/18 09/19/18 History mcg/actuation nasal spray,suspension alprazolam 0.25 mg tablet (Xanax) 0.25 mg PO DAILY PRN PRN Anxiety 10/29/20 Unknown History cholecalciferol (vitamin D3) 50 50 mcg PO DAILY 06/20/24 Unknown History mcg (2,000 unit) tablet (Vitamin D3) meloxicam 15 mg tablet 15 mg PO DAILY 06/20/24 Unknown History duloxetine 60 mg capsule,delayed 60 mg PO DAILY 30 days #30 caps 07/04/24 Unknown Rx release (Cymbalta) cephalexin 500 mg capsule 500 mg PO Q12 7 days #14 CAPSULES 03/08/25 Unknown Rx sulfamethoxazole 800 1 tab PO BID 2 days #4 tabs 03/08/25 Unknown Rx mg-trimethoprim 160 mg tablet (Bactrim DS) Allergy/AdvReac Type Severity Reaction Status Date / Time prochlorperazine (From AdvReac Other Verified 03/07/25 19:26 Compazine) Surgical History History of tonsillectomy History of hernia repair History of appendectomy Social History Smoking Status: Never smoker EXAM Physical Exam Const Vital Signs: 03/07/25 19:26 03/07/25 19:31 03/07/25 20:20 Temperature 98.4 F 98.4 F Temperature Source Oral Oral Pulse Rate 122 H 122 H Respiratory Rate 32 H 32 H Respiratory Effort Normal Non-Labored Respiratory Pattern Normal Blood Pressure 152/76 H 152/76 H Blood Pressure Mean 101 101 Pulse Ox 100 100 Oxygen Delivery Method 03/07/25 21:04 03/07/25 21:05 03/07/25 22:00 Temperature 98.4 F 98.2 F Temperature Source Oral Oral Pulse Rate 104 H 104 H 98 Respiratory Rate 16 16 18 Respiratory Effort Respiratory Pattern Blood Pressure 117/61 117/61 111/64 Blood Pressure Mean 79 79 79 Pulse Ox 97 97 98 Oxygen Delivery Method Room Air Room Air Room Air 03/07/25 23:00 03/08/25 00:00 03/08/25 00:52 Temperature 98.2 F 98.2 F 98.2 F Temperature Source Oral Oral Pulse Rate 94 88 83 Respiratory Rate 18 20 H 15 Respiratory Effort Respiratory Pattern Blood Pressure 112/64 110/71 101/67 Blood Pressure Mean 80 84 78 Pulse Ox 98 97 93 Oxygen Delivery Method Room Air MDM MDM MDM Narrative Medical decision making narrative: 50-year-old male with past medical history of depression, anxiety, KEYLA on CPAP presents for evaluation of anal abscess, body aches, fever. Patient states for the past several days he has had an abscess of the anal region. He states that he was seen in [facility] emergency department in which she had a CT abdomen and pelvis. States that he was told that he could not have an I&D as it was too close to the sphincter and could cause incontinence. He states that he is scheduled outpatient to have a colonoscopy and follow-up with Dr. Blair. Patient was placed on Bactrim. Patient states since yesterday he has had a cough, fevers, body aches, pain in the abscess region. NS bolus, Toradol ordered for symptoms. Differential diagnosis includes but is not limited to perianal abscess, viral illness, pneumonia, electrolyte abnormality, dehydration, UTI. Patient was able to pull up his CT abdomen pelvis on his phone in which it showed a perianal abscess. CBC without leukocytosis or anemia. Platelets unremarkable. Lactic acid 3.3. Patient receiving fluids. UA positive for ketones but negative for UTI. Chest x-ray without consolidation, pneumothorax, effusion, cardiomegaly. Similar to previous EKG in September 2024. Per radiology subtle opacification of the right middle lobe similar to previous study and could represent infiltrate. Given that this is seen on previous chest x-ray, low suspicion for pneumonia. CT abdomen and pelvis shows left perineal abscess. Large amount of stool within the ascending and transverse colon, similar to previous study. Diverticulosis without diverticulitis. I do think patient would benefit from incision and drainage however given previous concern for sphincter proximity, I contacted general surgery, Dr. Ziegler. The abscess does track down near the sphincter however is in agreement that patient needs incision and drainage. Will not be cutting deep towards the sphincter. COVID, flu, RSV negative. Patient was updated of all the results and the plan. He he confirmed understanding. Patient tolerated incision and drainage well. Copious amounts of pus was expressed. This was cultured per general surgery recommendations. Patient's body aches have resolved with Toradol. Will repeat lactic acid to determine if patient needs admission versus okay to discharge home on antibiotics. Repeat lactic normal. On reevaluation, patient's buttocks pain is improved. He is comfortable discharging home. Vitals are stable. Patient was written for 5 days of Bactrim. Will expand this by 2 days for a 7-day course. Will add on Keflex as well. Monitor for worsening signs of infection. Okay to shower in 24 hours. Remove packing at that time. He confirmed understand the plan. Follow-up with general surgery. Return back to ED if symptoms change or worsen. Incision and Drainage Indication: Perianal abscess Location: Left perianal abscess. Size 3 x 2 cm. Consent: Risks, benefits, and alternatives discussed with patient and consent obtained Procedure: The area was prepared and draped in the usual sterile manner. The site was anesthetized with 1% lidocaine with epinephrine. A cruciate incision was made in the skin and copious amounts of purulent material was expressed. The abscess was explored thoroughly superficially as not to get close to the sphincter and sequestered pockets were opened. The abscess pocket was irrigated. Bleeding was minimal. The patient tolerated the procedure well without complications. Dressing was placed. Packin/4th inch iodoform packing Impression: 1. Left perianal abscess, status post incision and drainage with packing 2. Mild dehydration with lactic acidosis, resolved 3. Cough 4. Body aches Lab Data Labs: Laboratory Results - last 24 hr 03/07/25 03/07/25 03/07/25 20:40 20:55 21:49 WBC 10.2 RBC 4.54 L Hgb 13.2 Hct 39.2 L MCV 86.3 MCH 29.1 MCHC 33.7 RDW Std Deviation 40.0 RDW Coeff of Francie 12.7 Plt Count 301 MPV 9.7 Immature Gran % (Auto) 0.600 Neut % (Auto) 69.1 Lymph % (Auto) 22.2 Carver % (Auto) 7.0 Eos % (Auto) 0.7 Baso % (Auto) 0.4 Absolute Neuts (auto) 7.1 Absolute Lymphs (auto) 2.26 Nucleated RBC % 0 Sodium Cancelled 137 Potassium Cancelled 3.4 Chloride Cancelled 104 Carbon Dioxide Cancelled 23.4 Anion Gap Cancelled 11 BUN Cancelled 13 Creatinine Cancelled 1.00 Estim Creat Clear Calc Cancelled 107.28 Est GFR (MDRD) Non-Af Cancelled 92 BUN/Creatinine Ratio Cancelled 12.8 Glucose Cancelled 94 Lactic Acid 3.3 H* Calcium Cancelled 8.7 Total Bilirubin Cancelled 0.28 AST Cancelled 15 ALT Cancelled 23 Alkaline Phosphatase Cancelled 55 Total Protein Cancelled 6.3 Albumin Cancelled 3.5 Globulin Cancelled 2.7 Albumin/Globulin Ratio Cancelled 1.3 Urine Color Yellow Urine Clarity Clear Urine pH 6.0 Ur Specific [place] 1.020 Urine Protein 15 H Urine Glucose (UA) Normal Urine Ketones 5 H Urine Occult Blood 10 H Urine Nitrite Negative Urine Bilirubin Negative Urine Urobilinogen 4 H Ur Leukocyte Esterase Negative Urine RBC 0-5 SEEN Urine WBC 0-5 SEEN Ur Squamous Epith Cells 0 SEEN Urine Bacteria RARE Urine Mucus RARE 03/07/25 23:20 WBC RBC Hgb Hct MCV MCH MCHC RDW Std Deviation RDW Coeff of Francie Plt Count MPV Immature Gran % (Auto) Neut % (Auto) Lymph % (Auto) Carver % (Auto) Eos % (Auto) Baso % (Auto) Absolute Neuts (auto) Absolute Lymphs (auto) Nucleated RBC % Sodium Potassium Chloride Carbon Dioxide Anion Gap BUN Creatinine Estim Creat Clear Calc Est GFR (MDRD) Non-Af BUN/Creatinine Ratio Glucose Lactic Acid 1.5 Calcium Total Bilirubin AST ALT Alkaline Phosphatase Total Protein Albumin Globulin Albumin/Globulin Ratio Urine Color Urine Clarity Urine pH Ur Specific [place] Urine Protein Urine Glucose (UA) Urine Ketones Urine Occult Blood Urine Nitrite Urine Bilirubin Urine Urobilinogen Ur Leukocyte Esterase Urine RBC Urine WBC Ur Squamous Epith Cells Urine Bacteria Urine Mucus Radiography Diagnostic Testing: Clinical Impression(s) from Imaging Studies Chest X-Ray 03/07/25 21:03 IMPRESSION: As above. Reading Location: [facility] Abdomen/Pelvis CT 03/07/25 21:17 IMPRESSION: Left perianal abscess. Large amount of stool within the ascending and transverse colon, similar to the previous study. Sigmoid diverticulosis without CT evidence of diverticulitis, unchanged. Reading Location: [facility] Discharge Plan Triage Chief Complaint: Other, Pain/Inj ED Provider: Skip Barrientos Dx/Rx/DC Orders Prescriptions: New sulfamethoxazole-trimethoprim [Bactrim DS] 800-160 mg tablet 1 tab PO BID 2 Days Qty: 4 0RF Rx Instructions: Patient already has a 5-day course. cephalexin 500 mg capsule 500 mg PO Q12 7 Days Qty: 14 0RF No Action Zyrtec 10 MG capsule 10 mg PO DAILY fluticasone propionate 1 SPRAY spray,suspension 2 sprays IH DAILY Patient Comments: Use 2 Sprays in each nostril once daily. Rinse mouth after use. alprazolam [Xanax] 0.25 mg Tablet 0.25 mg PO DAILY PRN PRN (Reason: Anxiety) meloxicam 15 mg tablet 15 mg PO DAILY cholecalciferol (vitamin D3) [Vitamin D3] 50 mcg (2,000 unit) tablet 50 mcg PO DAILY duloxetine [Cymbalta] 60 mg capsule,delayed release(DR/EC) 60 mg PO DAILY 30 Days Qty: 30 0RF Primary Care Provider: Francisco Javier Osorio Referrals: Perry Ziegler MD [Med Staff - Active Staff, General Surgery] - 3-5 Days Francisco Javier Osorio MD [Primary Care Provider, Internal Medicine] - 3-5 Days Activity Restrictions/Additional Instructions: Monitor for worsening signs of infection. Tylenol and Motrin as needed for pain. Return back to ED if symptoms change or worsen. Yesterday you were prescribed Bactrim x 5 days. Will expand by 2 days for 7-day course. Will broaden with Keflex as well. Okay to shower in 24 hours. Remove packing at that time. No hot tubs, lakes, mary, oceans, pools until fully healed. Print Language: Yoruba Disposition Disposition: Home, Self Care
--- OUTSIDE RECORDS SUMMARY | 2025-03-07 20:44 | XMS RPT_ITS | CCD ---
Author Organization [facility] Inform ion [facility] Care Team Providers Care Claims Manager Name Role Phone LINDSEY GONZALEZ Unavailable Unavailable LINDSEY GONZALEZ Unavailable Unavailable LUNACORINNE Unavailable Unavailable CHARAN BELL Unavailable Unavailable SELF, SELF Unavailable Unavailable CHARAN BELL Unavailable Unavailable SELF, SELF Unavailable Unavailable ROBB VALENTINE Unavailable Unavailable ROBB VALENTINE Unavailable Unavailable Jake Conrad Primary Care Provider Devon KHANNA, Francisco Javier Dumont Primary Care Provider Devon KHANNA, Kiara Primary Care Provider Devon KHANNA, Kiara Primary Care Provider [phone] [place] KHANNA Dumas Primary Care Provider Devon KHANNA, Francisco Javier Dumont Primary Care Provider JONATHAN NIELSEN Attending Unavailable JONATHAN NIELSEN Admitting Unavailable FRANCISCO JAVIER OSORIO Primary Care Unavailable CARMEN ROJAS Attending CARMEN Dickey Admitting Unavai labFRANCISCO JAVIER Quevedo H Primary Care Unavailable Ezequiel ACCOUNTS RECEIVABLE MANAGER.CERTIFIED CAREGIVER, Catarina M Unavailable Tylor Wheeler Attending Unavailable Devon, Francisco Javier Primary Care Unavailable Devon, Francisco Javier Primary Care Unavailable Ayden Choudhury Attending Unavailable Lisa Noble Referring Unavailable Osorio, Francisco Javier Primary Care Unavailable Lisa Noble Attending Unavailable Lisa Noble Referring Unavailable Osorio, Francisco Javier Primary Care Unavailable Lisa Noble Attending Unavailable Devon, Francisco Javier Primary Care Unavailable Lisa Noble Attending Unavailable Lisa Noble Referring Unavailable LATISHA BIRMINGHAM Attending Unavailable OSORIO, KIARA Primary Care Unavailable GERMAN WOODWARD Attending Unavailable SELF Referring Unavailable OSORIO, KIARA Primary Care Unavailable GERMAN WOODWARD Attending Unavailable OSORIO, KIARA Primary Care Unavailable OSORIO, KIARA Primary Care Unavailable OSORIO, KIARA Attending Unavailable OSORIO, KIARA Primary Care Unavailable SELF Referring Unavailable JONATHAN NIELSEN Attending Unavailable OSORIO, KIARA Primary Care Unavailable SEBASTIEN PETTY Attending Unavailabl e OSORIO, KIARA Primary Care Unavailable EZEQUIEL DAVIS Attending Unavailable OSORIO, KIARA Primary Care Unavailable TIMEEDWARD Torres Referring Unavailable ENOC BYNUM Attending Unavailable OSORIO, KIARA Primary Care Unavailable CARMEN ROJAS Referring UnavailENOC Stallworth Attending Unavailable OSORIO, KIARA Primary Care Unavailable ASTON MCMAHAN Referring Unavailable ENOC BYNUM Attending Unavailable ALLEN SIEGEL Attending Unavailable OSORIO, KIARA Primary Care Unavailable OSORIO, KIARA Primary Care Unavailable OSORIO, KIARA Referring Unavailable OSORIO, KIARA Primary Care Unavailable JONATHAN FOSTER Referring Unavailable JONATHAN FOSTER Attending Unavailable OSORIO, KIARA Primary Care Unavailable CARMEN ROJAS Attending Unavailabl e OSORIO, KIARA Primary Care Unavailable OSORIO, KIARA Primary Care Unavailable OSORIO, KIARA Attending Unavailable OSORIO, KIARA Primary Care Unavailable EDWARD RAVI Attending Unavailable OSORIO, KIARA Primary Care Unavailable CARMEN ROJAS Attending Unavailabl e OSORIO, KIARA Primary Care Unavailable JONATHAN FOSTER Referring Unavailable OSORIO, KIARA Primary Care Unavailable LATISHA BIRMINGHAM Referring Unavailable OSORIO, KIARA Primary Care Unavailable OSORIO, KIARA Primary Care Unavailable OSORIO, KIARA Primary Care Unavailable TESTASTON SAUCEDA Referring Unavailable ENOC BYNUM Attending Unavailable OSORIO, KIARA Primary Care Unavailable CARMEN ROJAS Referring Unavailabl e ENOC BYNUM Attending Unavailable OSORIO, KIARA Primary Care Unavailable TIMEEDWARD Torres Referring Unavailable ENOC BYNUM Attending Unavailable OSORIO, KIARA Primary Care Unavailable FRANCISCO JAVIER OSORIO Primary Care Unavailable DEVON, KIARA Primary Care Unavailable CARMEN ROJAS Attending UnavailFRANCISCO JAVIER Jacobs Primary Care Unavailable FRANCISCO JAVIER OSORIO Referring Unavailable DEVON, KIARA Primary Care Unavailable EDWARD RAVI Referring Unavailable ENOC BYNUM Attending Unavailable OSORIO, KIARA Primary Care Unavailable FRANCISCO JAVIER OSORIO H Attending Unavailable Allergies Allergy Classification Reported Allergen(s) Allergy Type Date of Onset Reaction(s) Facility Prochlorperazine (1 source) Prochlorperazine Drug Allergy 06-03-19 Other: See Comments [facility] (20 sources) Prochlorperazine; Translations: [PROCHLORPERAZINE EDISYLATE] Drug Allergy 06-03-19 Other: See Comments [facility] (1 source) Prochlorperazine Drug Allergy 09-20-19 [facility] Repository Medications Current Medications Medication Drug Class(es) Dates Sig (Normalized) Sig (Original) acetaminophen 325 mg / HYDROcodone bitartrate 5 mg oral tablet (3 sources) Opioid Agonist Start: 02-01-2024 End: 02-08-2024 take 1 tablet by mouth every four hours HYDROcodone-aceta minophen (NORCO) 5-325 mg per tablet Indications: Achilles tendinitis of left lower extremity Take 1 tablet by mouth every 4 hours for 7 days. 42 tablet 02/01/2024 02/08/2024 Active [id number] 200 actuat albuterol 0.09 mg/actuat metered dose [...] daily for 10 days. FOR 10 DAYS. betamethasone 0.5 mg/ml / clotrimazole 10 mg/ml topical cream (20 sources) Azole Antifungal, Corticosteroid Start: 10-21-19 End: 10-31-19 24 clotrimazole-betam ethasone (LOTRISONE) cream Indications: Dermatitis , Psoriasis Apply to affected area two times a day as needed. 45 g 10/31/2023 Active Comment on above: Apply to affected ar ea twice daily as needed. cefdinir 300 mg oral capsule (1 source) Cephalosporin Antibacterial Start: 12-17-19 End: 12-24-19 take 1 capsule by mouth twice daily cefdinir (OMNICEF) 300 mg capsule Take 1 capsule by mouth twice daily for 7 days. 14 capsule 0 12/16/2022 12/23/2022 Active Comment on above: Take 1 capsule by mo [facility] twice daily for 7 days. cephalexin 500 mg oral capsule (5 sources) Cephalosporin Antibacterial Start: 03-15-20 End: 03-22-20 take 1 capsule by mouth four times daily cephALEXin (KEFLEX) 500 mg capsule Take 1 capsule by mouth four times daily for 7 days. 28 capsule 03/15/2024 03/22/2024 Active Start: 02-29-2024 End: 02-29-2024 cephALEXin 500 mg cap(s) (KE FLEX) Start: 02-29-2024 End: 02-29-2024 take 1 dose by mouth once 500 mg, ORAL, ONCE, 1 dose, On Tue02/29/24 at 0930, Antimicrobial indication: Prophylaxis Start: 07-11-2023 End: 07-16-2023 take 1 capsule by mouth four times daily cephALEXin (KEFLEX) 500 mg capsule Take 1 capsule by mouth four times daily for 5 days. 20 capsule 0 07/11/2023 07/16/2023 Active Comment on above: Take 1 capsule by [facility] four times daily for 5 days. Cetirizine [...] above: Take by mouth. cholecalciferol 0.025 mg ora l capsule (20 sources) Vitamin D Cholecalciferol, Vitamin D3, (VITAMIN D) 25 mcg (1,000 unit) cap Take 1,000 Units by mouth once daily. Active COMPOUNDED PRESCRIPTION (20 sources) Start: 06-10-2018 COMPOUNDED PRESCRIPTION Increase CPAP setting to 13 cm H2O pressure. Dx: KEYLA 1 Each 06/10/2018 Active Start: 06-10-2018 COMPOUNDED PRE SCRIPTION Increase CPAP setting to 13 cm H2O pressure. Dx: KEYLA 1 Each 0 06/10/2018 Active Comment on above: Increase CPAP settin g to 13 cm H2O pressure. Dx: KEYLA CPAP (20 sources) Start: 11-02-2024 CPAP Indications: KEYLA (obstructive sleep apnea) Initiate CPAP @ 11 cm of water with humidification. Mask (per patient preference) optional chin strap (if indicated) , filters, tubing, humidifier and lifetime supplies. Dx: KEYLA G47.33 1 each 11/02/2024 Active Start: 04-14-2018 End: 10-31-2024 CPAP Initiate CPAP @ 11 cm o f water with humidification. Mask (per patient preference) optional chin strap (if indicated) , filters, tubing, humidifier and lifetime supplies. 1 Device 04/14/2018 10/31/2024 Discontinued Start: 04-14-2018 CPAP Initiate CPAP @ 11 [...] supplies. docusate sodium 100 mg oral capsule (8 sources) Start: 02-01-20 24 End: 02-15-20 24 take 1 capsule by mouth twice daily [...] Comment on above: Take [facility] tablet by [facility] twice daily for 10 days. Take with food DULoxetine 30 mg delayed release oral capsule (20 sources) Serotonin and Norepinephrine Reuptake Inhibitor Start: 06-26-19 End: 07-27-19 take 1 capsule by mouth once daily DULoxetine (CYMBALTA) 30 mg capsule Indications: Anxiety and depression Take 1 capsule by mouth once daily. 90 capsule 1 07/26/2024 Active Start: 05-21-2020 End: 09-18-2020 take 1 capsule by mouth once daily DULoxetine (CYMBALTA) 20 mg capsule Indications: Anxiety and depression Take 1 capsule by mouth once daily. 90 capsule 1 05/21/2020 09/18/2020 Discontinued Start: 03-24-2014 duloxetine (CY MBALTA) 60 MG capsule TAKE ONE CAPSULE EVERY DAY 90 Cap 0 03/24/2014 Active Comment on above: Take 1 capsule by mo [facility] once daily. fluticasone propionate 0.05 mg/actuat metered dose nasal spray (20 sources) Corticosteroid Start: 05-21-19 End: 09-06-19 take 2 spray(s) by mouth once daily fluticasone (FLONASE) 50 mcg/actuation nasal spray Indications: Seasonal allergic rhinitis, unspecified trigger Use 2 Sprays in each nostril once daily. Rinse mouth after use. 3 Each 3 09/06/2023 Active Comment on above: Use 2 Sprays in each nostril once daily. Rinse mouth after use. meloxicam 15 mg oral tablet (20 sources) Nonsteroidal Anti-inflammatory Drug Start: 07-20-19 End: 01-23-20 25 take 1 tablet by mouth once daily at mealtime meloxicam (MOBIC) 15 mg tablet Indications: Achilles tendinitis of left lower extremity Take 1 tablet by mouth daily with food. 90 tablet 1 07/26/2024 01/22/2025 Active Start: 04-17-2024 End: 07-16-2024 take 1 tablet by mouth once daily at mealtime meloxicam (MOBIC) 15 mg tablet Take 1 tablet by mouth daily with food. 30 tablet 2 04/17/2024 07/16/2024 Active mupirocin 0.02 mg/mg topical ointment (2 [...] discontinue Naproxen (20 sources) Nonsteroidal Anti-inflammatory Drug End: take 1 tablet by mouth every eight hours as needed naproxen sodium (ALEVE ORAL) Take 1 tablet by mouth every 8 hours as needed. 04/17/2024 Discontinued take 1 tablet by gilberto th every eight hours as needed naproxen sodium (ALEVE ORAL) Take 1 tabl et by mouth every 8 hours as needed. [...] a total of three tablets twice daily. predniSONE 20 mg oral tablet (4 sources) Start: 01-19-2024 End: 01-26-2024 take 2 tablets by mouth once daily predniSONE (DELTASONE) 20 mg tablet Take 2 tablets by mouth once daily for 7 days. 14 tablet 01/19/2024 01/26/2024 Active sildenafil 50 mg oral tablet (20 sources) Phosphodiesterase 5 Inhibitor Start: 04-23-2024 take 1 tablet by mouth once daily as needed sildenafil (VIAGRA) 50 mg tablet Indications: Erectile dysfunction of organic origin Take 1 tablet by mouth once daily as needed. Take 30-60 minutes before sexual activity. Take on an empty stomach. 15 tablet 5 04/23/2024 Active 1000 ml sodium chloride 9 mg/ml injection (1 source) Start: 01-23-2024 End: 01-23-2024 0.9 % sodium chloride (NACL 0.9%) infusion Indications: Bladder wall thickening Administer at rate defined per CT contrast administration specifications. To be provided with radiology test. 150 mL 01/23/2024 01/23/2024 Active traMADol hydrochloride 50 mg oral tablet (2 sources) Opioid Agonist Start: 02-10-2024 End: 02-17-2024 take 1 tablet by mouth every six hours as needed for pain traMADol (ULTRAM) 50 mg tablet Indications: Achilles tendinitis of left lower extremity , Postoperative pain Take 1 tablet by mouth every 6 hours as needed for pain for up to 7 days. 28 tablet 02/10/2024 02/17/2024 Active Completed/Discontinued Medications Medication Drug Class(es) Dates [...] mg by mouth once daily. 09/18/2020 Discontinued aspirin 325 mg oral tablet (20 sources) Platelet Aggregation Inhibitor, Nonsteroidal Anti-inflammatory Drug Start: 02-01-2024 End: 03-29-2024 take 1 tablet by mouth twice daily aspirin 325 mg tablet Take 1 tablet by mouth two times a day. 60 tablet 1 02/01/2024 03/29/2024 Discontinued aspirin/acetamino phen/caffeine (EXCEDRIN MIGRAINE ORAL) (20 sources) End: 03-29-2024 take 2 tablets by mouth every eight hours as needed aspirin/acetaminop hen/caffeine (EXCEDRIN MIGRAINE ORAL) Take 2 tablets by mouth every 8 hours as needed. 03/29/2024 Discontinued take 2 tablets by mo uth every eight hours as needed aspirin/acetaminophen/caffeine (EXCEDRIN MIGRAINE ORAL) Take 2 tablets by mouth every 8 hours as needed. Active aspirin/acetamin ophen/caffeine (EXCEDRIN MIGRAINE ORAL) Take by mouth. Active aspirin/acetamin ophen/caffeine (EXCEDRIN MIGRAINE ORAL) Take by mouth. 0 Active benzonatate 100 mg oral capsule (10 sources) [...] on above: Take 1 capsule by mo uth three times daily as needed for cough. Take 1-2 capsules by mouth three times a day as needed. ciprofloxacin 3 mg/ml / dexamethasone 1 mg/ml otic suspension (18 sources) Corticosteroid, Quinolone Antimicrobial Start: 01-19-2024 End: 02-27-2024 ciprofloxacin-dexAMETH asone (CIPRODEX) 0.3-0.1 % otic suspension Use 4 Drops in the ears two times a day. 4 drops to affected ear twice daily for 7-10 days. 7.5 mL 01/19/2024 02/27/2024 Discontinued (Course of therapy completed) dicyclomine hydrochloride 20 mg oral tablet (16 sources) Anticholinergic Start: 01-30-2023 End: 08-04-2023 dicyclomine (BENTYL) 20 mg tablet EPINEPHrine 0.01 mg/ml / lidocaine hydrochloride 10 mg/ml injectable solution (2 sources) Antiarrhythmic, alpha-Adrenergic Agonist, beta-Adrenergic Agonist, Catecholamine, Amide Local Anesthetic Start: 04-27-2024 End: 04-27-2024 lidocaine 1%-EPINEPHrine 1:100,000 0.3 mL injection Start: 04-27-2024 End: 04-27-2024 0.3 mL, INTRADERMAL, ONCE, 1 dose, On Tue04/27/24 at 1630 1 ml guselkumab 100 mg/ml prefilled syringe (18 sources) Interleukin-23 Antagonist End: 08-04-2023 inject 100 mg by subcutaneous injection every month guselkumab (TREMFYA) 100 mg/mL Inject 100 mg subcutaneously once every month. 0 08/04/2023 Discontinued (Discontinued by another Health Care Provider) Comment on above: Inject 100 mg subcutaneously once every month. ibuprofen 600 mg oral tablet (2 sources) Nonsteroidal Anti-inflammatory Drug Start: 09-18-2024 End: 09-18-2024 ibuprofen 600 mg tab(s) (MOTRIN) Start: 09-18-2024 End: 09-18-2024 take 1 dose by mouth once 600 mg, ORAL, ONCE, 1 dose, On Tue09/18/24 at 1630 iv contrast (will be provide d with radiology test) (18 sources) Start: 01-23-2024 End: 02-27-2024 iv contrast (will be provide d with radiology test) Indications: Bladder wall thickening [...] contrast administration guidelines link. 1 Each 01/23/2024 02/27/2024 Discontinued (Course of therapy completed) Start: 01-23-2024 iv contrast (w ill be provided with radiology test) Indications: Bladder [...] guidelines link 1 Each 01/19/2024 01/20/2024 Active 1 ml ixekizumab 80 mg/ml auto-injector (12 sources) Interleukin-17A Antagonist End: 09-10-2023 inject 80 mg by subcutaneous injection once ixekizumab (TALTZ AUTOINJECTOR) 80 mg/mL pen Inject 80 mg subcutaneously one time only. 0 09/10/2023 Discontinued Comment on above: Inject 80 mg subcuta neously one time only. lidocaine hydrochloride 0.02 mg/mg topical gel (2 sources) Antiarrhythmic, Amide Local Anesthetic Start: 02-29-2024 End: 02-29-2024 lidocaine urojet 2 % 11 mL topical gel (GLYDO) Start: 02-29-2024 End: 02-29-2024 11 mL, URETHRAL, ONCE (UP TO 30 DAYS AMB), 1 dose, On Tue02/29/24 at 0930, FOR EXTERNAL USE ONLY APPLY TO: PENIS magnesium citrate 58.2 mg/ml oral solution (1 source) Start: 07-01-2020 End: 09-18-2020 magnesium citrate solution Drink 1/3 of bottle, wait 4hrs for results. If no stool, drink next 1/3 bottle. Wait 4hrs. No results, then drink last 1/3 of bottle. For severe constipation. 295 mL 07/01/2020 09/18/2020 Discontinued ondansetron 4 mg oral tablet (20 sources) Serotonin-3 Receptor Antagonist Start: 02-01-2024 End: 03-02-2024 take 1 tablet by mouth every eight hours as needed ondansetron (ZOFRAN) 4 mg tablet Take 1 tablet by mouth every 8 hours as needed for nausea/vomiting. 30 tablet 02/01/2024 02/27/2024 Discontinued (Course of therapy completed) Start: 01-30-2023 End: 08-04-2023 ondansetron orally disintegr ating (ZOFRAN ODT) 4 mg disintegrating tablet polyethylene glycol [id number] [id number] mg / potassium chloride 2970 mg / sodium bicarbonate 6740 mg / sodium chloride 5860 mg / sodium sulfate 05903 mg powder for oral solution (1 source) Osmotic Laxative Start: 02-01-2023 End: 02-01-2023 peg 3350-Electrolytes (GOLYTELY) 236-22.74-6.74 -5.86 gram suspension [...] 1 tablet by gilberto th twice daily. triamcinolone acetonide 1 mg/ml topical cream (20 sources) Corticosteroid Start: 01-19-2024 End: 07-26-2024 triamcinolone acetonide (KENALOG) 0.1 % cream Indications: Lichen simplex chronicus , Pruritus of skin Apply 1 application to affected area two times a day. Apply twice daily from the neck down including the scrotum. 908 g 04/27/2024 07/26/2024 Start: 11-04-2022 End: 11-14-2022 triamcinolone acetonide (TRACY [...] the open lesion until resolved then discontinue Problems Active Problems Problem Classification Problem Date Documented Da te Episodic/Chronic Administrative/social admission (1 source) Other specified counseling; Translations: [Encounter for hearing aid consultation] Onset: 01-17-2025 Episodic Allergic reactions (2 sources) Inflammatory dermatosis; Translations: [Dermatitis, unspecified] Episodic Anal and rectal conditions (1 source) Perianal abscess; Translations: [Anal abscess] Episodic Anxiety disorders (20 sources) Other specified anxiety disorders; Translations: [Panic attack] Onset: 02-13-2013 02-13-2013 Chronic Coronary atherosclerosis and other heart disease (6 sources) Other forms of angina pectoris; Translations: [Angina pectoris, unspecified] Onset: 03-10-2017 Chronic Diabetes mellitus without complication (2 sources) Impaired fasting glycemia; Translations: [Impaired fasting glucose] Onset: 02-07-2025 07-26-2024 Episodic Disorders of lipid metabolism (20 sources) Hyperlipidemia; Translations: [Hyperlipidemia, unspecified] Onset: 08-04-2023 08-04-2023 Chronic E Codes: Natural/environment (1 source) Insect bite - wound; Translations: [Bitten or stung by nonvenomous insect and other nonvenomous arthropods, initial encounter] 11-04-2022 Episodic Epilepsy; convulsions (2 sources) Seizure disorder; Translations: [Epilepsy, unspecified, not intractable, without status epilepticus] 11-01-2023 Chronic Gastrointestinal hemorrhage (20 sources) Rectal hemorrhage; Translations: [Hemorrhage of anus and rectum] Onset: 02-17-2023 Resolved: 05-02-2023 01-31-2023 Episodic Genitourinary symptoms and ill-defined conditions (4 sources) Mixed urinary incontinence; Translations: [Mixed incontinence] Onset: 04-23-2024 01-23-2024 Chronic Immunizations and screening for infectious disease (6 sources) Hepatitis C antibody test positive; Translations: [Other specified abnormal immunological findings in serum] Episodic Mood disorders (4 sources) Depressive disorder; Translations: [Depression] Onset: 02-13-2013 02-13-2013 Chronic Mood disorders (1 source) Mood disorders; Translations: [Anxiety and depression] Onset: 02-27-2018 Neoplasms of unspecified nature or uncertain behavior (1 source) Neoplasm of uncertain behavior of skin; Translations: [Neoplasm of uncertain behavior of skin] 04-27-2024 Episodic Nonmalignant breast conditions (3 sources) Lump of subareolar area of left breast; Translations: [Unspecified lump in left breast, subareolar] 01-31-2023 Episodic Nonspecific chest pain (1 source) Atypical chest pain; Translations: [Other chest pain] 10-31-2023 Episodic Nutritional deficiencies (20 sources) Vitamin D deficiency; Translations: [Vitamin D deficiency, unspecified] Onset: 11-02-2023 11-02-2023 Chronic Other circulatory disease (1 source) Elevated blood-pressure reading without diagnosis of hypertension; Translations: [Elevated blood-pressure reading, without diagnosis of hypertension] 06-13-2023 Episodic Other connective tissue disease (1 source) Pain in left foot; Translations: [Pain in left foot] 10-10-2023 Episodic Other connective tissue disease (1 source) Calcaneal spur of left foot; Translations: [Calcaneal spur, left foot] 10-15-2023 Episodic Other diseases of bladder and urethra (4 sources) Hypertrophy of bladder; Translations: [Other specified disorders of bladder] 01-23-2024 Chronic Other diseases of bladder and urethra (1 source) Other specified disorders of bladder; Translations: [Bladder wall thickening] Onset: 04-23-2024 Chronic Other ear and sense organ disorders (3 sources) Asymmetrical sensorineural hearing loss; Translations: [Sensorineural hearing loss, bilateral] 01-19-2024 Chronic Other ear and sense organ disorders (3 sources) Sensorineural hearing loss, unilateral, left ear, with unrestricted hearing on the contralateral side; Translations: [Sensorineural hearing loss, unilateral] Onset: 02-21-2024 01-19-2024 Chronic Other ear and sense organ disorders (2 sources) Chronic eczema of external auditory canal; Translations: [...] otitis externa, right ear] 01-19-2024 Episodic Other ear and sense organ disorders (1 source) Ear pressure sensation; Translations: [Other specified disorders of left ear] 02-27-2024 Episodic Other ear and sense organ disorders (2 sources) Referred otalgia of left ear; Translations: [Otalgia, left ear] 04-09-2024 Episodic Other gastrointestinal disorders (1 source) Constipation; Translations: [Constipation, unspecified] 07-01-2020 Episodic Other infections; including parasitic (1 source) History of human papilloma virus infection; Translations: [Personal history of other infectious and parasitic diseases] 07-27-2024 Episodic Other inflammatory condition of skin (20 sources) Psoriasis; Translations: [Psoriasis, unspecified] Onset: 08-04-2023 12-16-2022 Chronic Other inflammatory condition of skin (1 source) Lichen simplex chronicus; Translations: [Lichen simplex chronicus] 04-27-2024 Episodic Other inflammatory condition of skin (1 source) Pruritus, unspecified; Translations: [Unspecified pruritic disorder] 04-27-2024 Episodic Other lower respiratory disease (2 sources) Cough; Translations: [Acute cough] 06-13-2023 Episodic Other male genital disorders (1 source) Male erectile dysfunction, unspecified; Translations: [Impotence of organic origin] 12-16-2022 Chronic Other male genital disorders (1 source) Secondary erectile dysfunction; Translations: [Male erectile dysfunction, unspecified] 04-23-2024 Chronic Other nervous system disorders (1 source) Disorder of smell; Translations: [Unspecified disturbances of smell and taste] 10-31-2023 Episodic Other nervous system disorders (1 source) Postoperative pain ; Translations: [Other acute postprocedural pain] 02-10-2024 Episodic Other non-traumatic joint disorders (2 sources) Multiple joint pain; Translations: [Pain in unspecified joint] 12-16-2022 Episodic Other non-traumatic joint disorders (2 sources) Chronic ankle pain; Translations: [Pain in left ankle and joints of left foot] 10-10-2023 Episodic Other nutritional; endocrine; and metabolic disorders (20 sources) Obese class I; Translations: [Obesity, unspecified] Onset: 02-27-2018 02-27-2018 Chronic Other skin disorders (1 source) Asteatosis cutis; Translations: [Xerosis cutis] 04-27-2024 Episodic Other upper respiratory disease (2 sources) Other allergic rhinitis; Translations: [Other allergic rhinitis] Onset: 01-24-2017 Chronic Other upper respiratory disease (4 sources) Allergic rhinitis; Translations: [Allergic rhinitis, unspecified] Onset: 02-13-2013 02-13-2013 Chronic Other upper respiratory disease (20 sources) Seasonal allergic rhinitis; Translations: [Other seasonal allergic rhinitis] Onset: 02-27-2018 02-27-2018 Chronic Other upper respiratory infections (8 sources) Acute sinusitis; Translations: [Other acute sinusitis] Onset: 02-07-2025 Episodic Otitis media and related conditions (7 sources) Acute suppurative otitis media without spontaneous [...] specified conditions] 10-28-2023 Episodic Residual codes; unclassified (1 source) Medical care unavailable; Translations: [Procedure and treatment not carried out for other reasons] 03-29-2024 Episodic Residual codes; unclassified (1 source) Viral syndrome; Translations: [Other general symptoms and signs] 06-07-2024 Episodic Skin and subcutaneous tissue infections (3 sources) Infection of skin; Translations: [Local infection of the skin and subcutaneous tissue, unspecified] 11-04-2022 Episodic Unclassified (6 sources) Encounter for screening for malignant neoplasm of prostate; Translations: [Patient encounter status] Onset: 01-24-2017 12-16-2022 Episodic Viral infection (20 sources) Recurrent herpes simplex; Translations: [Other herpesviral infection] Onset: 02-04-2019 02-04-2019 Episodic Past or Other Problems Problem Classification Problem Date Documented Da te Episodic/Chronic Abdominal pain (20 sources) Left lower quadrant pain; Translations: [Left lower quadrant pain] Onset: 02-17-2023 Resolved: 05-02-2023 01-31-2023 Episodic Coma; stupor; and brain damage (20 sources) Daytime somnolence; Translations: [Somnolence] Onset: 02-27-2018 Resolved: 09-28-2018 09-28-2018 Episodic Fever of unknown origin (3 sources) Fever; Translations: [Fever, unspecified] Onset: 09-18-2024 09-18-2024 Episodic Genitourinary symptoms and ill-defined conditions (4 sources) Urgent desire to urinate; Translations: [Urgency of urination] Onset: 04-23-2024 01-23-2024 Episodic Medical examination/evaluation (2 sources) Encounter for general adult medical examination without abnormal findings; Translations: [Encounter for general adult medical examination without abnormal findings] Onset: 01-24-2017 Episodic Nausea and vomiting (1 source) Nausea with vomiting, unspecified; Translations: [Nausea with vomiting, unspecified] Onset: 02-28-2024 Episodic Other circulatory disease (20 sources) Elevated blood pressure; Translations: [Elevated blood-pressure reading, without diagnosis of hypertension] Onset: 02-27-2018 Resolved: 09-28-2018 09-28-2018 Episodic Other connective tissue disease (20 sources) Heel pain; Translations: [Pain in left foot] Onset: 08-07-2024 Resolved: 07-27-2024 11-16-2023 Episodic Other connective tissue disease (20 sources) Left achilles tendonitis; Translations: [Achilles tendinitis, left leg] Onset: 12-19-2023 12-08-2023 Episodic Other connective tissue disease (2 sources) Achilles tendinitis, left leg; Translations: [Achilles tendinitis of left lower extremity] Onset: 12-19-2023 Episodic Other ear and sense organ disorders (1 source) Other specified disorders of left ear; Translations: [Ear pressure, left] Onset: 02-27-2024 Episodic Other ear and sense organ disorders (1 source) Otalgia, left ear; Translations: [Referred otalgia of left ear] Onset: 04-13-2024 Episodic Other infections; including parasitic (1 source) Personal history of other infectious and parasitic diseases; Translations: [History of HPV infection] Onset: 07-26-2024 Episodic Other non-traumatic joint disorders (4 sources) Pain in left shoulder; Translations: [Pain in left shoulder] Onset: 03-15-2017 Episodic Residual codes; unclassified (20 sources) Personal history of other specified conditions; Translations: [Personal history of other specified diseases] Onset: 01-20-2024 11-07-2023 Episodic Unclassified (2 sources) Family history of ischemic heart disease and other diseases of the circulatory system; Translations: [Family history of ischemic heart disease and other diseases of the circulatory system] Onset: 03-10-2017 Episodic Results Test Name Value Interpretation Reference Range Facility [facility] 02-11-2025 CNOV Office Visit (GENSWS ) -------- ASTON NAPOLES ([id number]) 1975 M Date Time Provider Department 02/11/25 3:45 PM JONATHAN NIELSEN During your visit today, we recorded the following information about you: Pulse Blood pressure Weight 74/minute 149/97 99.8 kg Jonathan Nielsen MD 02/13/2025 11:33 AM Signed HISTORY AND PHYSICAL Aston Napoles 1975 REFERRING PHYSICIAN: Self CHIEF COMPLAINT: Follow Up HPI: Aston Napoles is a 49-year-old male presenting for a colonoscopy. Aston reports that he has met his deductible for the year and would like to complete the procedure before the end of the year. He recalls that his last colonoscopy was performed on his birthday, and he used a Miralax-Dulcolax preparation, which he tolerated well. He reports that the preparation was effective and did not cause any nausea or vomiting. The patient is being seen by me today at the request of Dr. Francisco Javier Osorio MD for my opinion and advice regarding Rectal bleeding (primary encounter diagnosis) Anal warts. 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 Impaired fasting glucose 02/07/2025 Mixed stress and urge urinary incontinence KEYLA (obstructive sleep apnea) 04/13/2018 Psoriasis 08/04/2023 [...] HISTORY OF 08/10/2023 DESTRUCTION OF ANAL CONDYLOMA REPAIR ACHILLES TENDON Left 02/01/2024 Left, debridement, repair. Calcaneal exostectomy. SKIN BIOPSY HX TONSILLECTOMY HX 1979 Current Outpatient Medications Medication Sig DULoxetine DR (CYMBALTA) 30 mg capsule Take 1 capsule by mouth once daily. meloxicam (MOBIC) 15 mg tablet Take 1 tablet by mouth daily with food. CPAP Initiate CPAP @ 11 cm of water with humidification. Mask (per patient preference) optional chin strap (if indicated) , filters, tubing, humidifier and lifetime supplies. Dx: KEYLA G47.33 sildenafil (VIAGRA) 50 mg tablet Take 1 tablet by mouth once daily as needed. Take 30-60 minutes before sexual activity. Take on an empty stomach. clotrimazole-betamethaso ne (LOTRISONE) cream Apply to affected area two times a day as needed. fluticasone (FLONASE) 50 mcg/actuation nasal spray Use 2 Sprays in each nostril once daily. Rinse mouth after use. albuterol HFA (VENTOLIN HFA) 90 mcg/actuation inhaler Inhale 2 Puffs as instructed every 4 hours as needed for wheezing/shortness of breath. COMPOUNDED PRESCRIPTION Increase CPAP setting to 13 cm H2O pressure. Dx: KEYLA CETIRIZINE HCL (ZYRTEC ORAL) Take 1 tablet by mouth two times a day. 10 MG Cholecalciferol, Vitamin D3, (VITAMIN D) 25 mcg (1,000 unit) cap Take 1,000 Units by mouth once daily. (Patient not taking: Reported on 02/11/2025) No current facility-administered medications for this visit. ALLERGIES: Compazine [Prochlorperazine Edisylate] PERSONAL HISTORY: SOCIAL HISTORY[1] FAMILY HISTORY: FAMILY HISTORY Problem Relation Age of Onset Hypertension Mother Heart Attack Father 60 sudden Hypertension Father No Known Problems Sister No Known Problems Brother Colon Cancer Maternal Grandfather 72 Heart disease Paternal Grandmother Heart disease Paternal Grandfather REVIEW OF SYMPTOMS: The review of systems data was entered by the nurse and reviewed by me There are no exam notes on file for this visit. PHYSICAL EXAMINATION: General: The patient is 49 year old male, well nourished, well hydrated in no acute distress. The patient is oriented to time, place, and person. VITALS: Blood pressure 149/97, pulse 74, weight 99.8 kg (220 lb), SpO2 96%. Body mass index is 34.46 kg/m?. HEENT: Normal cephalic, ataumatic, pupils are equally round, sclera are anicteric, mucous membranes are moist, oropharynx is clear. Neck has no masses, asymmetry or lymphadenopathy. Thyroid is unremarkable. Respiratory: Clear to auscultation and percussion. Normal respiratory excursion and pattern. Cardiac: Examination is regular rate and rhythm. Abdominal exam: Soft, nontender, with no palpable masses. No h (more content not included)... Normal [facility] CNOVon 02-07-2025 CNOV Office Visit (INTMWS ) -------- DONYASTON Ramos ([id number]) 1975 M Date Time Provider Department 02/07/25 8:20 AM FRANCISCO JAVIER OSORIO INTMWS During your visit today, we recorded the following information about you: Temperature Pulse Blood pressure Weight 97.9 degrees 83/minute 129/88 100.2 kg Francisco Javier Osorio MD 02/07/2025 9:09 AM Signed Subjective Aston Napoles is a 49 year old male. Anxiety and depression were controlled on duloxetine. KEYLA was well controlled with regular CPAP use. We reviewed his labs and impaired fasting glucose was stable. Risk of diabetes mellitus was reviewed. He was out in the cold this weekend and had a cough, left ear pain, fatigue and nasal drainage for a few days. He had no fever, chills, muscle aches, or GI symptoms. He was taking DayQuil and Zyrtec with improvement. Review of Systems Constitutional: Negative for chills and fever. HENT: Positive for congestion. Negative for sore throat. Respiratory: Negative for shortness of breath and wheezing. Cardiovascular: Negative for chest pain and palpitations. Gastrointestinal: Negative. Musculoskeletal: Negative for myalgias. 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 meloxicam (MOBIC) 15 mg tablet Take 1 tablet by mouth daily with food. CPAP Initiate CPAP @ 11 cm of water with humidification. Mask (per patient preference) optional chin strap (if indicated) , filters, tubing, humidifier and lifetime supplies. Dx: KEYLA G47.33 sildenafil (VIAGRA) 50 mg tablet Take 1 tablet by mouth once daily as needed. Take 30-60 minutes before sexual activity. Take on an empty stomach. Cholecalciferol, Vitamin D3, (VITAMIN D) 25 mcg (1,000 unit) cap Take 1,000 Units by mouth once daily. clotrimazole-betamethaso ne (LOTRISONE) cream Apply to affected area two times a day as needed. fluticasone (FLONASE) 50 mcg/actuation nasal spray Use 2 Sprays in each nostril once daily. Rinse mouth after use. albuterol HFA (VENTOLIN HFA) 90 mcg/actuation inhaler Inhale 2 Puffs as instructed every 4 hours as needed for wheezing/shortness of breath. COMPOUNDED PRESCRIPTION Increase CPAP setting to 13 cm H2O pressure. Dx: KEYLA CETIRIZINE HCL (ZYRTEC ORAL) Take 1 tablet by mouth two times a day. 10 MG No current facility-administered medications for this visit. Objective BP 129/88 (BP Site: Left Arm, BP Position: Sitting, BP Cuff Size: Large Adult) Pulse 83 Temp 36.6 ?C (97.9 ?F) (Temporal) Wt 100.2 kg (220 lb 14.4 oz) BMI 34.60 kg/m? Physical Exam Constitutional: General: He is not in acute distress. HENT: Right Ear: Tympanic membrane normal. Left Ear: Tympanic membrane normal. Nose: Congestion present. No rhinorrhea. Mouth/Throat: Mouth: Mucous membranes are moist. Pharynx: Oropharynx is clear. No oropharyngeal exudate or posterior oropharyngeal erythema. Eyes: Conjunctiva/sclera: Conjunctivae normal. Cardiovascular: Rate and Rhythm: Normal rate and regular rhythm. Heart sounds: No murmur heard. No gallop. Pulmonary: Effort: No respiratory distress. Breath sounds: No wheezing, rhonchi or rales. Lymphadenopathy: Cervical: No cervical adenopathy. Neurological: Mental Status: He is alert. Psychiatric: Mood and Affect: Mood normal. Behavior: Behavior normal. Latest Ref Rng 01/11/2025 WBC 3.70 - 11.00 k/uL 6.46 RBC 4.20 - 6.00 m/uL 4.91 Hemoglobin 13.0 - 17.0 g/dL 14.6 Hematocrit 39.0 - 51.0 % 44.4 MCV 80.0 - 100.0 fL 90.4 MCH 26.0 - 34.0 pg 29.7 MCHC 30.5 - 36.0 g/dL 32.9 RDW-CV 11.5 - 15.0 % 13.0 Platelet Count 150 - 400 k/uL 303 MPV 9.0 - 12.7 fL 10.1 Absolute nRBC <0.01 k/uL <0.01 Glucose 74 - 99 mg/dL 101 (H) BUN 9 - 24 mg/dL 18 Creatinine 0.73 - 1.22 mg/dL 0.92 Sodium 136 - 144 mmol/L 140 Potassium 3.7 - 5.1 mmol/L 4.6 Chloride 98 - 107 mmol/L 103 CO2 22 - 30 mmol/L 24 Anion Gap 8 - 15 mmol/L 13 Calcium 8.5 - 10.2 mg/dL 9.6 eGFR >=60 mL/min/1.73m? 102 Hemoglobin A1C 4.3 - 5.6 % 5.3 Estimated Average Glucose mg/dL 105 Legend: (H) High ASSESSMENT/PLAN: 1. Viral upper respiratory tract infection - ICD9: 465.9, ICD10: J06.9 (primary diagnosis) - Discussed viral etiology and rationale for treatment. - Symptomatic treatment with prn analgesia - Supportive care with fluids and rest 2. Impaired fasting glucose - ICD9: 790.21, ICD10: R73.01 - Low carb diet. - HEMOGLOBIN A1C 3. Anxiety and depression - ICD9: 300.00, 311, ICD10: F41.9, F32.A - Controlled. - Continue DULOXETINE. (more content not included)... Normal [facility] DONYASTON Ramos ([id number]) 1975 M Date Time Provider Department 01/29/25 FRANCISCO JAVIER OSORIO During your visit today, we recorded the following information about you: Anuradha Enriquez 01/29/2025 2:43 PM Signed Prescription Refill Information The patient has been identified by name and date of : Yes Caregiver verified no other encounters exist for this prescription request: Yes Caregiver confirmed with patient/requestor that no other refills are due, in the near future, with this provider at this time: Yes The last office visit in the department: 07-26-24 Does the patient have a future office visit with this provider/department: Yes Request: meloxicam (MOBIC) 15 mg tablet 90 tablet Sig: Take 1 tablet by mouth daily with food. Pharmacy has been updated in chart [facility] [id number] Anuradha Graves [facility] January 29, 2025 2:41 PM Allergies As of Date: 01/29/2025 Noted Allergy Reaction COMPAZINE (PROCHLORPERAZINE EDISY*06/03/2017 14 - Other: See Comments Comments: Jittery feeling Date Reviewed: 09/18/2024 Reviewed by: Dora Lafleur LPN - Fully Assessed Reason for Visit: Refill Request [94] Visit Diagnosis:Achilles tendinitis of left lower extremity [M76.62] Order(s):meloxicam (MOBIC) 15 mg tabletTake 1 tablet by mouth daily with food.Disp: 90 tabletRfl: 1 Prescriptions as of 01/29/2025 - meloxicam (MOBIC) 15 mg tablet Take 1 tablet by mouth daily with food. - CPAP Initiate CPAP @ 11 cm of water with humidification. Mask (per patient preference) optional chin strap (if indicated) , filters, tubing, humidifier and lifetime supplies. Dx: KEYLA G47.33 - DULoxetine (CYMBALTA) 30 mg capsule Take 1 capsule by mouth once daily. - sildenafil (VIAGRA) 50 mg tablet Take 1 tablet by mouth once daily as needed. Take 30-60 minutes before sexual activity. Take on an empty stomach. - Cholecalciferol, Vitamin D3, (VITAMIN D) 25 mcg (1,000 unit) cap Take 1,000 Units by mouth once daily. - clotrimazole-betamethaso ne (LOTRISONE) cream Apply to affected area two times a day as needed. - fluticasone (FLONASE) 50 mcg/actuation nasal spray Use 2 Sprays in each nostril once daily. Rinse mouth after use. - albuterol HFA (VENTOLIN HFA) 90 mcg/actuation inhaler Inhale 2 Puffs as instructed every 4 hours as needed for wheezing/shortness of breath. - COMPOUNDED PRESCRIPTION Increase CPAP setting to 13 cm H2O pressure. Dx: KEYLA - CETIRIZINE HCL (ZYRTEC ORAL) Take 1 tablet by mouth two times a day. 10 MG Problem List As Of Date 01/29/2025 Noted Resolved Anxiety and depression [F41.9, F32.A] [...] Chronic heel pain, left [M79.672, G89.29] 11/16/2023 07/27/2024 Pre-op testing [Z01.818] 12/19/2023 03/29/2024 Achilles tendinitis of left lower extremity [M7*12/19/2023 History of seizures [Z87.898] 01/20/2024 Prescriptions ordered this encounter Disp Refills Start End MELOXICAM 15 MG TABLET 90 t* 1 01/29/2025 07/28/2025 Route: PO Sig: Take 1 tablet by mouth daily with food. Medications Discontinued During This Encounter Prescriptions - meloxicam (MOBIC) 15 mg tablet (Discontinued) Take 1 tablet by mouth daily with food. Encounter Status:Closed by FRANCISCO JAVIER OSORIO on 01/29/25 Normal [facility] CNOVon 01-17-2025 CNOV Office Visit (OTFGFL ) -------- DONYASTON Ramos ([id number]) 1975 M Date Time Provider Department 01/17/25 11:00 AM [facility] During your visit today, we recorded the following information about you: German Woodward AUD 01/17/2025 11:38 AM Signed [facility] January 17, 2025 Aston Napoles was seen today for audiometric testing prior to discussing hearing aids. The patient reports no noticeable change in his hearing sensitivity since previous testing. The patient reports difficulty hearing conversations especially in background noise and finds that he asks what? frequently . Previous audiometric testing was completed on 01/19/2024 PHYSICAL EXAMINATION: Otoscopic inspection revealed ear canals free of cerumen bilaterally TEST RESULTS: Audiometric testing revealed improved left pure-tone thresholds at 4000 Hz and above since previous testing. Pure-tone thresholds within normal limits bilaterally. Speech receptionist airline lounge thresholds agree with pure tone thresholds bilaterally. Speech discrimination testing revealed excellent speech understanding ability in the right ear and good in the left. Tympanometry was not completed today. AUDIOGRAM MAY BE VIEWED IN PROCEDURES RECOMMENDATIONS/PLAN: The above test results were discussed with the patient and the following recommendations were made: 1. Use of communication strategies to enhance speech understanding ability 2. Repeat audiometric testing in 6 months, sooner if a change in hearing sensitivity is detected. GISEL Fuller Created using voice recognition software, some errors may have occurred. Corrections may be performed at a later date. Referring Provider: SELF [200] Allergies As of Date: 01/17/2025 Noted Allergy Reaction COMPAZINE (PROCHLORPERAZINE EDISY*06/03/2017 14 - Other: See Comments Comments: Jittery feeling Date Reviewed: 09/18/2024 Reviewed by: Dora Lafleur LPN - Fully Assessed Reason for Visit: Hearing Loss [1119] Primary Visit Diagnosis:Auditory complaints of both ears [H93.293] Order(s):HEARING TEST/AUDIOGRAM [1299089] Order #: [id number]: 1 Prescriptions as of 01/17/2025 - CPAP Initiate CPAP @ 11 cm of water with humidification. Mask (per patient preference) optional chin strap (if indicated) , filters, tubing, humidifier and lifetime supplies. Dx: KEYLA G47.33 - DULoxetine (CYMBALTA) 30 mg capsule Take 1 capsule by mouth once daily. - meloxicam (MOBIC) 15 mg tablet Take 1 tablet by mouth daily with food. - sildenafil (VIAGRA) 50 mg tablet Take 1 tablet by mouth once daily as needed. Take 30-60 minutes before sexual activity. Take on an empty stomach. - Cholecalciferol, Vitamin D3, (VITAMIN D) 25 mcg (1,000 unit) cap Take 1,000 Units by mouth once daily. - clotrimazole-betamethaso ne (LOTRISONE) cream Apply to affected area two times a day as needed. - fluticasone (FLONASE) 50 mcg/actuation nasal spray Use 2 Sprays in each nostril once daily. Rinse mouth after use. - albuterol HFA (VENTOLIN HFA) 90 mcg/actuation inhaler Inhale 2 Puffs as instructed every 4 hours as needed for wheezing/shortness of breath. - COMPOUNDED PRESCRIPTION Increase CPAP setting to 13 cm H2O pressure. Dx: KEYLA - CETIRIZINE HCL (ZYRTEC ORAL) Take 1 tablet by mouth two times a day. 10 MG Problem List As Of Date 01/17/2025 Noted Resolved Anxiety and depression [F41.9, F32.A] [...] Chronic heel pain, left [M79.672, G89.29] 11/16/2023 07/27/2024 Pre-op testing [Z01.818] 12/19/2023 03/29/2024 Achilles tendinitis of left lower extremity [M7*12/19/2023 History of seizures [Z87.898] 01/20/2024 Encounter Status:Closed by GERMAN WOODWARD on 01/17/25 Normal [facility] Basic metabolic 2000 panelon 01-11-2025 Anion gap [Moles/Vol] 13 mmol/L Normal 8-15 [facility] Comment on above: Order Comment: Speci men Type: BLOOD SPECIMENOrdering Facility: [facility] Address: [address] [place] [address] Performed By: #### 2 4321-2 ####[facility] LABCLIA [id number] [place] [id number] [place] Calcium [Mass/Vol] 9.6 mg/dL Normal 8.5-10.2 [facility] Comment on above: Order Comment: Speci men Type: BLOOD SPECIMENOrdering Facility: [facility] Address: [address] [place] [address] Performed By: #### 2 4321-2 ####[facility] LABCLIA [id number] [place] [id number] [place] Chloride [Moles/Vol] 103 mmol/L Normal 98-107 [facility] Comment on above: Order Comment: Speci men Type: BLOOD SPECIMENOrdering Facility: [facility] Address: [address] [place] [address] Performed By: #### 2 4321-2 ####[facility] LABCLIA [id number] [place] [id number] [place] CO2 [Moles/Vol] 24 mmol/L Normal 22-30 [facility] Comment on above: Order Comment: Speci men Type: BLOOD SPECIMENOrdering Facility: [facility] Address: [address] [place] [address] Performed By: #### 2 4321-2 ####[facility] LABIA [id number] [address] [place] Creatinine [Mass/Vol] 0.92 mg/dL Normal 0.73-1.22 [facility] Comment on above: Order Comment: Speci men Type: BLOOD SPECIMENOrdering Facility: [facility] Address: [address] [place] [address] Performed By: #### 2 4321-2 ####[facility] LABIA [id number] [place] [address] [place] eGFRcr SerPlBld CKD-EPI 2020 102 mL/min/1.73m??? Normal >=60 [facility] Comment on above: Order Comment: Speci men Type: BLOOD SPECIMENOrdering Facility: [facility] Address: [address] [place] [address] Result Comment: Tiffany mated Glomerular Filtration Rate [...] reflect actual GFR. Performed By: #### 2 4321-2 ####[facility] LABCLIA [id number] [place] [address] [place] Glucose [Mass/Vol] 101 mg/dL High 74-99 [facility] Comment on above: Order Comment: Speci men Type: BLOOD SPECIMENOrdering Facility: [facility] Address: [address] [place] [address] Result Comment: The [place] Diabetes Association (ADA) provides guidance for cutoff [...] Standards of Medical Care in Diabetes 2016, [place] [employer] Association. Diabetes Care. 2016.39(Suppl 1). Performed By: #### 2 4321-2 ####[facility] LABIA [id number] [place] [address] [place] Potassium [Moles/Vol] 4.6 mmol/L Normal 3.7-5.1 [facility] Comment on above: Order Comment: Speci men Type: BLOOD SPECIMENOrdering Facility: [facility] Address: [address] [place] [address] Performed By: #### 2 4321-2 ####[facility] LABIA [id number] [place] [id number] [place] Sodium [Moles/Vol] 140 mmol/L Normal 136-144 [facility] Comment on above: Order Comment: Speci men Type: BLOOD SPECIMENOrdering Facility: [facility] Address: [address] [place] [address] Performed By: #### 2 4321-2 ####[facility] LABCLIA [id number] [place] [address] [place] Urea nitrogen [Mass/Vol] 18 mg/dL Normal 9-24 [facility] Comment on above: Order Comment: Speci men Type: BLOOD SPECIMENOrdering Facility: [facility] Address: [address] [place] [address] Performed By: #### 2 4321-2 ####[facility] LABCLIA [id number] [place] [address] [place] CBC panel Auto (Bld)on 01-11 Erythrocyte distribution width (RBC) [Ratio] 13.0 % Normal 11.5-15.0 [facility] Comment on above: Order Comment: Speci men Type: BLOOD SPECIMENOrdering Facility: [facility] Address: [address] [place] [address] Performed By: #### 5 8410-2 ####[facility] LABCLIA [id number] [address] [place] Hematocrit (Bld) [Volume fraction] 44.4 % Normal 39.0-51.0 [facility] Comment on above: Order Comment: Speci men Type: BLOOD SPECIMENOrdering Facility: [facility] [facility] Address: [address] [place] [address] Performed By: #### 5 8410-2 ####[facility] LABCLIA [id number] [place] [id number] [place] Hemoglobin (Bld) [Mass/Vol] 14.6 g/dL Normal 13.0-17.0 [facility] Comment on above: Order Comment: Speci men Type: BLOOD SPECIMENOrdering Facility: [facility] Address: [address] [place] [address] Performed By: #### 5 8410-2 ####[facility] LABCLIA [id number] [place] [id number] [place] MCH (RBC) [Entitic mass] 29.7 pg Normal 26.0-34.0 [facility] Comment on above: Order Comment: Speci men Type: BLOOD SPECIMENOrdering Facility: [facility] Address: [address] [place] [address] Performed By: #### 5 8410-2 ####[facility] LABIA [id number] [place] [address] [place] MCHC (RBC) [Mass/Vol] 32.9 g/dL Normal 30.5-36.0 [facility] Comment on above: Order Comment: Speci men Type: BLOOD SPECIMENOrdering Facility: [facility] Address: [address] [place] [address] Performed By: #### 5 8410-2 ####[facility] [id number] [place] [address] [place] MCV (RBC) [Entitic vol] 90.4 fL Normal 80.0-100.0 [facility] Comment on above: Order Comment: Speci men Type: BLOOD SPECIMENOrdering Facility: [facility] Address: [address] [place] [address] Performed By: #### 5 8410-2 ####[facility] [id number] [place] [address] [place] Nucleated RBC (Bld) [#/Vol] 10*3/uL Normal <0.01 [facility] Comment on above: Order Comment: Speci men Type: BLOOD SPECIMENOrdering Facility: [facility] Address: [address] [place] [address] Performed By: #### 5 8410-2 ####[facility] [id number] [place] [address] [place] Platelet mean volume (Bld) [Entitic vol] 10.1 fL Normal 9.0-12.7 [facility] Comment on above: Order Comment: Speci men Type: BLOOD SPECIMENOrdering Facility: [facility] Address: [address] [place] [address] Performed By: #### 5 8410-2 ####[facility] LABIA [id number] [address] [place] [address] [place] Platelets (Bld) [#/Vol] 303 10*3/uL Normal 150-400 [facility] Comment on above: Order Comment: Speci men Type: BLOOD SPECIMENOrdering Facility: [facility] Address: [address] [place] [address] Performed By: #### 5 8410-2 ####[facility] LABIA [id number] [address] [address] [place] RBC (Bld) [#/Vol] 4.91 10*6/uL Normal 4.20-6.00 [facility] Comment on above: Order Comment: Speci men Type: BLOOD SPECIMENOrdering Facility: [facility] Address: [address] [place] [address] Performed By: #### 5 8410-2 ####[facility] [id number] [address] [address] [place] WBC (Bld) [#/Vol] 6.46 10*3/uL Normal 3.70-11.00 [facility] Comment on above: Order Comment: Speci men Type: BLOOD SPECIMENOrdering Facility: [facility] Address: [address] [place] [address] Performed By: #### 5 8410-2 ####[facility] LABIA [id number] [place] [id number] [place] HbA1c (Bld)on 01-11-2025 Average glucose Estimated from glycated hemoglobin (Bld) [Mass/Vol] 105 mg/dL Normal [facility] Comment on above: Order Comment: Speci men Type: BLOOD SPECIMENOrdering Facility: [facility] Address: [address] [place] [address] Result Comment: eAG: (Estimated average glucose) is a calculated value from HgbA1c and is medical service representative of the average blood glucose level in the last 2-3 month period. Performed By: #### 5 5454-3 ####[facility] [id number] [address] [place] HbA1c (Bld) [Mass fraction] 5.3 % Normal 4.3-5.6 [facility] Comment on above: Order Comment: Speci men Type: BLOOD SPECIMENOrdering Facility: [facility] Address: [address] [facility] [place] [address] Result Comment: [place] Diabetes Association guidelines indicate that patients with HgbA1c in the range 5.7-6.4% are at increased risk for development of diabetes, and intervention by lifestyle modification may be beneficial. HgbA1c greater or equal to 6.5% is considered diagnostic of diabetes. Performed By: #### 5 5454-3 ####[facility] LABIA [id number] [place] [id number] [facility] Lul 10-26-2024 CARINAN Telephone (GENSWS) -------- ASTON NAPOLES ([id number]) 1975 M Date Time Provider Department 10/26/24 JONATHAN NIELSEN During your visit today, we recorded the following information about you: Essie Anglin LPN 10/26/2024 9:28 AM Signed Called patient. No answer- left message to call clinic. Patientis scheduled with Dr. Nielsen on Tuesday with note as :Follow up. Follow up for what? If appointment is for colonoscopy screening appointment needs to state and be changed to consult. Essie Anglin LPN Allergies As of Date: 10/26/2024 Noted Allergy Reaction COMPAZINE (PROCHLORPERAZINE EDISY*06/03/2017 14 - Other: See Comments Comments: Jittery feeling Date Reviewed: 09/18/2024 Reviewed by: Dora Lafleur LPN - Fully Assessed Reason for Visit: Appointment [186] Prescriptions as of 10/31/2024 - DULoxetine (CYMBALTA) 30 mg capsule Take 1 capsule by mouth once daily. - meloxicam (MOBIC) 15 mg tablet Take 1 tablet by mouth daily with food. - sildenafil (VIAGRA) 50 mg tablet Take 1 tablet by mouth once daily as needed. Take 30-60 minutes before sexual activity. Take on an empty stomach. - Cholecalciferol, Vitamin D3, (VITAMIN D) 25 mcg (1,000 unit) cap Take 1,000 Units by mouth once daily. - clotrimazole-betamethaso ne (LOTRISONE) cream Apply to affected area two times a day as needed. - fluticasone (FLONASE) 50 mcg/actuation nasal spray Use 2 Sprays in each nostril once daily. Rinse mouth after use. - albuterol HFA (VENTOLIN HFA) 90 mcg/actuation [...] 10 MG Problem List As Of Date 10/26/2024 Noted Resolved Anxiety and depression [F41.9, F32.A] [...] Chronic heel pain, left [M79.672, G89.29] 11/16/2023 07/27/2024 Pre-op testing [Z01.818] 12/19/2023 03/29/2024 Achilles tendinitis of left lower extremity [M7*12/19/2023 History of seizures [Z87.898] 01/20/2024 Encounter Status:Closed by ESSIE ANGLIN on 10/31/24 Normal [facility] Culture, Blood (WB)on 2024 CUB Blood cultures x2, f rom two different sites No growth in 5 days. Normal [facility] Comment on above: Performed By: #### M 200.1000 #### [facility] [address] [place], [address] CBC W/Diff, Automatedon 09-09 Absolute Lymph 1.64 X10 3/uL Normal 0.83-4.51 [facility] Comment on above: Performed By: #### L 500.4050, L100.0100 #### [facility] [address] [place], [address] Absolute Neut 9.5 X10 3/uL High 2.0-7.7 [facility] Comment on above: Performed By: #### L 500.4050, L100.0100 #### [facility] [address] [place], [address] Basophils/100 WBC (Bld) 0.2 % Normal 0-1 [facility] Comment on above: Performed By: #### L 500.4050, L100.0100 #### [facility] [address] [place], [address] Eosinophils/100 WBC (Bld) 0.1 % Normal 0-5 [facility] Comment on above: Performed By: #### L 500.4050, L100.0100 #### [facility] [address] [place], [address] Erythrocyte distribution width (RBC) [Ratio] 13.3 % Normal 11.6-14.6 [facility] Comment on above: Performed By: #### L 500.4050, L100.0100 #### [facility] [address] [place], [address] Hematocrit (Bld) [Volume fraction] 42.1 % Normal 40-54 [facility] Comment on above: Performed By: #### L 500.4050, L100.0100 #### [facility] [address] [place], [address] Hemoglobin (Bld) [Mass/Vol] 14.4 g/dL Normal 13.0-16.5 [facility] Comment on above: Performed By: #### L 500.4050, L100.0100 #### [facility] [address] [place], [address] IG% 0.400 Normal 0.0-0.9 [facility] Comment on above: Result Comment: IG% - Immature Granulocytes (promyelocytes, myelocytes and metamyelocytes) > 1% indicates that a LEFT SHIFT is Present. Performed By: #### L 500.4050, L100.0100 #### [facility] [address] [place], [address] Lymphocytes/100 WBC (Bld) 13.2 % Low 19-41 [facility] Comment on above: Performed By: #### L 500.4050, L100.0100 #### [facility] [address] [place], [address] MCH (RBC) [Entitic mass] 29.6 pg Normal 27.0-32.0 [facility] Comment on above: Performed By: #### L 500.4050, L100.0100 #### [facility] [address] [place], [address] MCHC (RBC) [Mass/Vol] 34.2 g/dL Normal 32-36 [facility] Comment on above: Performed By: #### L 500.4050, L100.0100 #### [facility] [address] [place], [address] MCV (RBC) [Entitic vol] 86.4 fL Normal 80-94 [facility] Comment on above: Performed By: #### L 500.4050, L100.0100 #### [facility] [address] [place], [address] Monocytes/100 WBC (Bld) 9.0 % Normal 0-10 [facility] Comment on above: Performed By: #### L 500.4050, L100.0100 #### [facility] [address] [place], [address] Neutrophils/100 WBC (Bld) 77.1 % High 47-70 [facility] Comment on above: Performed By: #### L 500.4050, L100.0100 #### [facility] [address] [place], [address] Nucleated RBC (Bld) [#/Vol] 0 10*3/uL Normal 0-5 [facility] Comment on above: Performed By: #### L 500.4050, L100.0100 #### [facility] [address] [place], [address] Platelet mean volume (Bld) [Entitic vol] 9.3 fL Normal 6.2-12.0 [facility] Comment on above: Performed By: #### L 500.4050, L100.0100 #### [facility] [address] [place], [address] Platelets (Bld) [#/Vol] 229 10*3/uL Normal 150-450 [facility] Comment on above: Performed By: #### L 500.4050, L100.0100 #### [facility] [address] [place], [address] RBC (Bld) [#/Vol] 4.87 10*6/uL Normal 4.6-6.2 [facility] Comment on above: Performed By: #### L 500.4050, L100.0100 #### [facility] [address] [place], [address] RDW SD 42.3 fl Normal 35.1-43.9 [facility] Comment on above: Performed By: #### L 500.4050, L100.0100 #### [facility] [address] [place], [address] WBC (Bld) [#/Vol] 12.4 10*3/uL High 4.4-11.0 [facility] Comment on above: Performed By: #### L 500.4050, L100.0100 #### [facility] [address] [place], [address] Chest PA and Lateralon 09-19 Chest PA and Lateral [facility] Services [address] [place] [address] Chest PA and Lateral MR#: [id number] Acct: [id number] Name: ASTON NAPOLES Rep #: [id number] : 1975 M 49 From: Aston Valle MD PCP: Dr. Francisco Javier Osorio MD Status: [facility] ER Study: Chest PA and Lateral Date of Exam: 09/19/24 Exam# [id number] Ordering Dr: Tylor Wheeler MD PROCEDURE: CHEST PA AND LATERAL 09/19/2024 REASON FOR EXAM: FEVER AND COUGH TECHNIQUE: Frontal and lateral views of the chest. COMPARISON: 09/17/2020. FINDINGS: The heart is normal in size. Mild left basilar linear atelectasis. No acute osseous abnormalities. RAD/Chest PA and Lateral IMPRESSION: No acute cardiopulmonary abnormalities. Mild left basilar atelectasis. Reading Location: [place] [address] CC: Dr. Tylor Wheeler MD; Dr. Francisco Javier Osorio MD Animal Care Technician: Signed Normal [facility] Comprehensive Metabolic Prof ilon 09-19-2024 Albumin [Mass/Vol] 4.3 g/dL Normal 3.5-5.0 [facility] Comment on above: Performed By: #### L 500.4050, L100.0100 #### [facility] [address] [place], [address] Albumin/Globulin [Mass ratio] 1.3 {ratio} Normal 0.9-2.4 [facility] Comment on above: Performed By: #### L 500.4050, L100.0100 #### [facility] [address] [place], [address] ALK PHOS 79 U/L Normal 40-129 [facility] Comment on above: Performed By: #### L 500.4050, L100.0100 #### [facility] [address] [place], [address] ALT [Catalytic activity/Vol] 31 U/L Normal <=46 [facility] Comment on above: Performed By: #### L 500.4050, L100.0100 #### [facility] [address] [place], [address] AST [Catalytic activity/Vol] 17 U/L Normal <=37 [facility] Comment on above: Performed By: #### L 500.4050, L100.0100 #### [facility] [address] [place], [address] Bilirubin [Mass/Vol] 0.79 mg/dL Normal 0.00-1.30 [facility] Comment on above: Performed By: #### L 500.4050, L100.0100 #### [facility] [address] [place], [address] BUN/CRE 10.0 RATIO Normal 10-20 [facility] Comment on above: Performed By: #### L 500.4050, L100.0100 #### [facility] [address] [place], [address] Calcium [Mass/Vol] 9.0 mg/dL Normal 7.6-11.0 [facility] Comment on above: Performed By: #### L 500.4050, L100.0100 #### [facility] [address] [place], [address] Chloride [Moles/Vol] 101 mmol/L Normal 98-108 [facility] Comment on above: Performed By: #### L 500.4050, L100.0100 #### [facility] [address] [place], [address] CO2 [Moles/Vol] 24.7 mmol/L Normal 21.0-32.0 [facility] Comment on above: Performed By: #### L 500.4050, L100.0100 #### [facility] [address] [place], [address] Creatinine [Mass/Vol] 1.13 mg/dL Normal 0.70-1.20 [facility] Comment on above: Performed By: #### L 500.4050, L100.0100 #### [facility] [address] [place], [address] ECRCL 93.66 ml/min Normal 50-250 [facility] Comment on above: Performed By: #### L 500.4050, L100.0100 #### [facility] [address] [place], [address] GAP 12 Normal 5-15 [facility] Comment on above: Performed By: #### L 500.4050, L100.0100 #### [facility] [address] [place], [address] GFR/1.73 sq M.predicted among non-blacks MDRD (S/P/Bld) [Vol rate/Area] 80 mL/min/{1.73_m2} Normal >60 [facility] Comment on above: Result Comment: mL/m in/1.73m2 CKD-EPI Creatinine Equation (2020) Performed By: #### L 500.4050, L100.0100 #### [facility] [address] [place], [address] Globulin (S) [Mass/Vol] 3.2 g/dL Normal 2.2-4.2 [facility] Comment on above: Performed By: #### L 500.4050, L100.0100 #### [facility] [address] [place], [address] Glucose [Mass/Vol] 108 mg/dL High 70-99 [facility] Comment on above: Performed By: #### L 500.4050, L100.0100 #### [facility] [address] [place], [address] Potassium [Moles/Vol] 3.6 mmol/L Normal 3.3-5.1 [facility] Comment on above: Performed By: #### L 500.4050, L100.0100 #### [facility] [address] [place], [address] Sodium [Moles/Vol] 137 mmol/L Normal 133-145 [facility] Comment on above: Performed By: #### L 500.4050, L100.0100 #### [facility] [address] [place], [address] T PROT 7.5 g/dL Normal 5.9-8.4 [facility] Comment on above: Performed By: #### L 500.4050, L100.0100 #### [facility] [address] [place], [address] Urea nitrogen [Mass/Vol] 11 mg/dL Normal 4-19 [facility] Comment on above: Performed By: #### L 500.4050, L100.0100 #### [facility] [address] [place], [address] Emergency Department Summary on 09-19-2024 Emergency Department Summary [facility] Medical Records Department [address] [facility] [place] [address] Emergency Department Summary 09/19/24 MR#: [id number] Acct: [id number] Name: ASTON NAPOLES Rep #: [id number] : 1975 49 From: Tylor Wheeler MD PCP: Dr. Francisco Javier Osorio MD Status:REG ER Location: ED HPI History of Present Illness Chief Complaint: Fever Informant: patient Onset/Context/Timing Onset: Days Context: Gradual Onset Timing: Continuous Current Severity: Mild Maximum Severity: Mild Narrative Narrative: 49-year-old male says since Tuesday has been feeling well has had a fever as high as 104. He went to the [facility] urgent care the other day. States he had a negative COVID flu and strep test. Last night he started having chills with the fever. And he wanted further evaluation. He said 1 time he had a scrotal abscess in 1 to make sure he did not have 1 again but he denies any scrotal pain. Denies any dysuria. Prior similar symptoms: Yes Recent [facility] Medical History Major depressive disorder, recurrent severe without psychotic features Generalized anxiety disorder KEYLA on CPAP Hernia Home Medications ???Medication ???Instructions ???Recorded ???Last Taken ???Type cetirizine 10 mg capsule (Zyrtec) 10 mg PO DAILY 04/02/18 09/19/18 History fluticasone propionate 50 2 sprays IH DAILY 09/20/18 9 History mcg/actuation nasal spray,suspension alprazolam 0.25 mg tablet (Xanax) 0.25 mg PO DAILY PRN PRN Anxiety 10/29/20 Unknown History cholecalciferol (vitamin D3) 50 50 mcg PO DAILY 06/20/24 Unknown H istory mcg (2,000 unit) tablet (Vitamin D3) meloxicam 15 mg tablet 15 mg PO DAILY 06/20/24 Unknown Hi story duloxetine 60 mg capsule,delayed 60 mg PO DAILY 30 days #30 caps Unknown Rx release (Cymbalta) Allergy/AdvReac Type Severity Reaction Status Date / Time prochlorperazine (From AdvReac Other Verified 09/19/24 12:11 Compazine) Surgical History History of tonsillectomy History of hernia repair History of appendectomy Social History Smoking Status: Never smoker ROS ROS ED ROS Narrative Fever. Chills. Denies rash. Denies shortness of breath. Denies abdominal pain. Does have a nonproductive cough. Constitutional Constitutional ED: Reports chills and fever(s) Eyes Eyes: Denies blurry vision ENT ENT ED: Denies ear pain, rhinorrhea or sore throat Cardiovascular Cardiovascular: Denies chest pain Respiratory/Chest Respiratory/Chest: Reports cough; Denies dyspnea or dyspnea on exertion Gastrointestinal Gastrointestinal: Denies abdominal pain, diarrhea, nausea or vomiting Genitourinary Genitourinary ED: Denies dysuria or hematuria Musculoskeletal Musculoskeletal: Denies arthralgias or back pain Integumentary Denies abscess Neurologic Neurologic: Denies headache(s) Psychiatric Psychiatric: Denies anxiety Endocrine Endocrinology: Denies cold intolerance Hematologic/Lymphatic Hematologic/Lymphatic: Reports none Allergic/Immunologic Allergic/Immunologic ED: Denies mouth swelling, tongue swelling or urticaria EXAM Physical Exam Narrative Exam Narrative: 49-year-old male sitting upright in bed. Vital signs are stable. He does have a fever of 102.2. Pulse ox 98% on room air no signs of hypoxia. H EENT exam TMs are unremarkable bilaterally. Small wax. Posterior pharynx normal. No erythema or exudate. No trouble swallowing or breathing. Neck nontender. No meningismus. No lymphadenopathy. Able to touch chin to chest. Lungs clear to auscultation bilaterally. Dry cough. Heart tachycardic 115 no murmur. Chest wall ribs nontender. Abdomen soft nontender. No peritoneal signs. No right upper or right lower quadrant tenderness. Back nontender no rash. Moving all 4 extremities. Nontender no edema. No cellulitis. Neurologically is awake and alert. External exam patient was concerned he might have a scrotal abscess. His external genitalia is nontender. No redness. No abscess. No skin changes. Normal in appearance. Const Vital Signs: 09/19/24 12:11 09/19/24 14:37 09/19/24 14:38 Temperature 100.1 F H 102.2 F H Temperature Source Oral Oral Pulse Rate 128 H 113 H Respiratory Rate 18 16 Respiratory Effort Normal Non-Labored Respiratory Pattern Normal Blood Pressure 122/86 H 144/89 H Blood Pressure Mean 98 107 Pulse Ox 97 98 Oxygen Delivery Method Room Air Room Air 09/19/24 15:31 09/19/24 16:00 Temperature 100.4 F H 101.9 F H Temperature Source Oral Oral Pulse Rate 108 H 109 H Respiratory Rate 24 H 20 H Respiratory Effort (more content not included)... Normal [facility] M100.678on 09-19-2024 M100.678 Pending SARS-CoV-2 (COVID 19) Negative INFLUENZA A Negative INFLUENZA B Negative RSV PCR Negative Normal [facility] Comment on above: Performed By: #### L 400.0001, #### [facility] [address] [facility] [place], [place], [address] Urinalysis, Completeon 09-19 EPI,SQUAMOUS 0-5 SEEN Normal 0-5 [facility] Comment on above: Order Comment: CLEAN CATCH Performed By: #### L 400.0001, #### [facility] [address] [place], [place], [address] RBC 0-5 SEEN Normal 0-5 [facility] Comment on above: Order Comment: CLEAN CATCH Performed By: #### L 400.0001, 8 #### [facility] [address] [place], [address] WBC 0-5 SEEN Normal 0-5 [facility] Comment on above: Order Comment: CLEAN CATCH Performed By: #### L 400.0001, M100.678 #### [facility] [address] [place], [address] BACTERIA 0 SEEN Normal None Seen [facility] Comment on above: Order Comment: CLEAN CATCH Performed By: #### L 400.0001, M100.678 #### [facility] [address] [place], [address] Mucus Ql (Urine sed) 0 SEEN Normal [facility] Comment on above: Order Comment: CLEAN CATCH Performed By: #### L 400.0001, M100.678 #### [facility] [address] [place], [address] CNOVon 09-18-2024 [facility] -------- ASTON NAPOLES ([id number]) 1975 M Date Time Provider Department 09/18/24 4:15 PM ALLEN SIEGEL [facility] During your visit today, we recorded the following information about you: Temperature Pulse Respiration Blood pressure 102.3 degrees 125/minute 20/minute 132/76 Weight 98.3 kg Allen Siegel APRN.CERTIFIED CAREGIVER 09/18/2024 5:07 PM Signed [facility] Subjective Aston Napoles is a 49 year old male. Patient presents with: Sore Throat: ST, nausea and fever x 1 day Sore Throat Associated symptoms include coughing. Pertinent negatives include no abdominal pain, congestion, diarrhea, shortness of breath or vomiting. Patient is a 49 year old male that went to work this morning had 99.7 fever, was driving home when symptoms significantly got worse. He is having sore throat and nausea. Review of Systems Constitutional: Positive for chills, fatigue and fever. HENT: Positive for sore throat. Negative for congestion and postnasal drip. Respiratory: Positive for cough. Negative for shortness of breath and wheezing. Gastrointestinal: Positive for nausea. Negative for abdominal pain, diarrhea and vomiting. Objective BP 132/76 Pulse (!) 125 Temp (!) 39.1 ?C (102.3 ?F) (Tympanic) Resp 20 Wt 98.3 kg (216 lb 11.4 oz) SpO2 100% BMI 33.94 kg/m? 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 Calcaneal exostectomy. SKIN BIOPSY HX TONSILLECTOMY HX 1979 ALLERGIES Compazine [Prochlorperazine Edisylate] MEDICATIONS DULoxetine (CYMBALTA) 30 mg capsule Take 1 capsule by mouth once daily. meloxicam (MOBIC) 15 mg tablet Take 1 tablet by mouth daily with food. sildenafil (VIAGRA) 50 mg tablet Take 1 tablet by mouth once daily as needed. Take 30-60 minutes before sexual activity. Take on an empty stomach. Cholecalciferol, Vitamin D3, (VITAMIN D) 25 mcg (1,000 unit) cap Take 1,000 Units by mouth once daily. clotrimazole-betamethaso ne (LOTRISONE) cream Apply to affected area two [...] mouth two times a day. 10 MG FAMILY HISTORY Problem Relation Age of Onset [...] Comment: once a month Drug use: Never Physical Exam Vitals and nursing note reviewed. Constitutional: General: He is not in acute distress. Appearance: Normal appearance. He is not ill-appearing or toxic-appearing. HENT: Head: Normocephalic and atraumatic. Jaw: No trismus, tenderness, swelling or pain on movement. Right Ear: Tympanic membrane normal. There is no impacted cerumen (Mild cermum movable). Left Ear: Tympanic membrane normal. Nose: Congestion present. Mouth/Throat: Mouth: Mucous membranes are moist. Pharynx: No oropharyngeal exudate or posterior oropharyngeal erythema. Eyes: Pupils: Pupils are equal, round, and reactive to light. Cardiovascular: Rate and Rhythm: Normal rate and regular rhythm. Heart sounds: Normal heart sounds. Pulmonary: Effort: Pulmonary (more content not included)... Normal [facility] STREP A MOLECULAR (POC)on Procedural Control Valid [facility] Strep A (POCT) Negative Negative [facility] CNPNon 08-17-2024 CNPN Telephone (INTMWS) -------- ASTON NAPOLES ([id number]) 1975 M Date Time Provider Department 08/17/24 FRANCISCO JAVIER OSORIO INTMWS During your visit today, we recorded the following information about you: Kali Bryant RN 08/17/2024 8:50 AM Signed Patient traveling currently and has been exposed to influenza and asking about medication to be prescribed by provider as the cruise ship wants to charge him $800. Notified patient that medication can't be prescribed without seeing him and prescription for an acute problem can't be sent out of the country. Patient verbalizes understanding and requests to schedule an appointment for Tuesday. Reports his only symptom is left ear infection and he wasn't tested for Influenza but had exposure. Appt scheduled. Kali Bryant RN Allergies As of Date: 08/17/2024 Noted Allergy Reaction COMPAZINE (PROCHLORPERAZINE EDISY*06/03/2017 14 - Other: See Comments Comments: Jittery feeling Date Reviewed: 07/26/2024 Reviewed by: Griselda Bautista LPN - Fully Assessed Reason for Visit: Patient Update [1234] Prescriptions as of 08/17/2024 - DULoxetine (CYMBALTA) 30 mg capsule Take 1 capsule by mouth once daily. - meloxicam (MOBIC) 15 mg tablet Take 1 tablet by mouth daily with food. - sildenafil (VIAGRA) 50 mg tablet Take 1 tablet by mouth once daily as needed. Take 30-60 minutes before sexual activity. Take on an empty stomach. - Cholecalciferol, Vitamin D3, (VITAMIN D) 25 mcg (1,000 unit) cap Take 1,000 Units by mouth once daily. - clotrimazole-betamethaso ne (LOTRISONE) cream Apply to affected area two times a day as needed. - fluticasone (FLONASE) 50 mcg/actuation nasal spray Use 2 Sprays in each nostril once daily. Rinse mouth after use. - albuterol HFA (VENTOLIN HFA) 90 mcg/actuation [...] 10 MG Problem List As Of Date 08/17/2024 Noted Resolved Anxiety and depression [F41.9, F32.A] [...] Chronic heel pain, left [M79.672, G89.29] 11/16/2023 07/27/2024 Pre-op testing [Z01.818] 12/19/2023 03/29/2024 Achilles tendinitis of left lower extremity [M7*12/19/2023 History of seizures [Z87.898] 01/20/2024 Encounter Status:Closed by KALI BRYANT on 08/17/24 [facility] CNOVon 07-26-2024 CNOV Office Visit (INTMWS ) -------- ASTON NAPOLES ([id number]) 1975 M Date Time Provider Department 07/26/24 5:20 PM FRANCISCO JAVIER OSORIO INTMWS During your visit today, we recorded the following information about you: Pulse Respiration Blood pressure Weight 102/minute 12/minute 122/76 96.3 kg Height 1.702 m Francisco Javier Osorio MD 07/27/2024 8:33 AM Signed This note was created using [employer]. Subjective Patient presents with: F/U 6 months: med refills needed Aston Napoles is a 49 year old male. He was completing intensive outpatient therapy at [facility]. His duloxetine was increased but had side effects, so this was reduced to the previous dose. He was better and needing long-term refills. His chronic heel pain resolved. He had residual Achilles pain after surgery last January and requested I take over meloxicam refills. Colorectal screening was flagging, although he had colonoscopy in 2022. After his visit, I reviewed recommendations to return in one year pertinent to treatments done. Review of Systems Constitutional: Negative for fatigue. Respiratory: Negative for shortness of breath. Cardiovascular: Negative. Gastrointestinal: Negative for abdominal pain. Musculoskeletal: Positive for arthralgias. Psychiatric/Behavioral: Negative for dysphoric mood. The patient is not nervous/anxious. 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 Hld (Hyperlipidemia) Psoriasis Vitamin D Deficiency Chronic Heel Pain, Left Achilles Tendinitis of Left Lower Extremity History of Seizures PAST SURGICAL HISTORY Procedure Laterality Date APPENDECTOMY 1997 COLONOSCOPY SCREENING N/A 02/17/2023 future colonoscopies need MAC EXCISION PILONIDAL CYST/SINUS SIMPLE INGUINAL HERNIA REPAIR HX Bilateral 1993 1992 and 1993 each side PAST SURGICAL HISTORY OF 08/10/2023 DESTRUCTION OF ANAL CONDYLOMA SKIN BIOPSY HX TONSILLECTOMY HX 1979 Current Outpatient Medications Medication Sig sildenafil (VIAGRA) 50 mg tablet Take 1 tablet by mouth once daily as needed. Take 30-60 minutes before sexual activity. Take on an empty stomach. Cholecalciferol, Vitamin D3, (VITAMIN D) 25 mcg (1,000 unit) cap Take 1,000 Units by mouth once daily. clotrimazole-betamethaso ne (LOTRISONE) cream Apply to affected area two [...] mouth two times a day. 10 MG DULoxetine (CYMBALTA) 30 mg capsule Take 1 capsule by mouth once daily. meloxicam (MOBIC) 15 mg tablet Take 1 tablet by mouth daily with food. No current facility-administered medications for this visit. Objective BP 122/76 (BP Site: Left Arm, BP Position: Sitting, BP Cuff Size: Large Adult) Pulse 102 Resp 12 Ht 170.2 cm (5' 7) Wt 96.3 kg (212 lb 4.9 oz) SpO2 97% BMI 33.25 kg/m? Physical Exam HENT: Head: Normocephalic. Cardiovascular: Rate and Rhythm: Normal rate and regular rhythm. Heart sounds: No murmur heard. No gallop. Pulmonary: Breath sounds: Normal breath sounds. Neurological: Mental Status: He is alert. Psychiatric: Mood and Affect: Mood normal. Latest Ref Rng 07/19/2024 Protein, Total 6.3 - 8.0 g/dL 7.6 Albumin 3.9 - 4.9 g/dL 4.4 Calcium 8.5 - 10.2 mg/dL 9.7 Bilirubin, Total 0.2 - 1.3 mg/dL 0.6 Alkaline Phosphatase 38 - 113 U/L 82 AST 14 - 40 U/L 30 ALT 10 - 54 U/L 40 Glucose 74 - 99 mg/dL 112 (H) BUN 9 - 24 mg/dL 15 Creatinine 0.73 - 1.22 mg/dL 0.97 Sodium 136 - 144 mmol/L 140 Potassium 3.7 - 5.1 mmol/L 4.0 Chloride 98 - 107 mmol/L 103 CO2 22 - 30 mmol/L 23 Anion Gap 8 - 15 mmol/L 14 eGFR >=60 mL/min/1.73m? 96 Cholesterol, Total <200 mg/dL 211 (H) Triglyceride <150 mg/dL 86 HDL Cholesterol >39 mg/dL 42 Non HDL Cholesterol <130 mg/dL 169 (H) Fasting Time hrs 12 VLDL Cholesterol <30 mg/dL 17 TC:HDL Ratio <5.10 5.02 LDL Cholesterol <100 mg/dL 152 (H) LDL:HDL Ratio <2.54 3.62 (H) Legend: (H) High Assessment and Plan 1. Hyperlipidemia, unspecified hyperlipidemia type - ICD9: 272.4, ICD10: E78.5 (primary diagnosis) - Improving control - Counseled on healthy diet and regular exercise - Mediterranean diet discussed briefly. 2. Anxiety and depression - ICD9: 300.00, 311, ICD10: F (more content not included)... Normal [facility] Comprehensive metabolic 2000 panelon 07-19-2024 Albumin [Mass/Vol] 4.4 g/dL Normal 3.9-4.9 [facility] Comment on above: Order Comment: Speci men Type: BLOOD SPECIMENOrdering Facility: [facility] Address: [address] [place] [address] Performed By: #### 2 4323-8, 70236-9 ####[facility] LABCLIA [id number] [place] [address] [place] ALP [Catalytic activity/Vol] 82 U/L Normal 38-113 [facility] Comment on above: Order Comment: Speci men Type: BLOOD SPECIMENOrdering Facility: [facility] Address: [address] [place] [address] Performed By: #### 2 4323-8, 22851-6 ####[facility] LABCLIA [id number] [facility] [address] [address] [place] ALT [Catalytic activity/Vol] 40 U/L Normal 10-54 [facility] Comment on above: Order Comment: Speci men Type: BLOOD SPECIMENOrdering Facility: [facility] Address: [address] [place] [address] Performed By: #### 2 4323-8, 32984-8 ####[facility] LABCLIA [id number] [place] [id number] [place] Anion gap [Moles/Vol] 14 mmol/L Normal 8-15 [facility] Comment on above: Order Comment: Speci men Type: BLOOD SPECIMENOrdering Facility: [facility] Address: [address] [place] [address] Performed By: #### 2 4323-8, 58585-1 ####[facility] LABCLIA [id number] [place] [address] [place] AST [Catalytic activity/Vol] 30 U/L Normal 14-40 [facility] Comment on above: Order Comment: Speci men Type: BLOOD SPECIMENOrdering Facility: [facility] Address: [address] [place] [address] Performed By: #### 2 4323-8, 59956-8 ####[facility] LABCLIA [id number] [place] [id number] [place] Bilirubin [Mass/Vol] 0.6 mg/dL Normal 0.2-1.3 [facility] Comment on above: Order Comment: Speci men Type: BLOOD SPECIMENOrdering Facility: [facility] Address: [address] [place] [address] Performed By: #### 2 4323-8, 49816-1 ####[facility] LABCLIA [id number] [address] [address] [place] Calcium [Mass/Vol] 9.7 mg/dL Normal 8.5-10.2 [facility] Comment on above: Order Comment: Speci men Type: BLOOD SPECIMENOrdering Facility: [facility] Address: [address] [place] [address] Performed By: #### 2 4323-8, 10124-1 ####[facility] LABCLIA [id number] [facility] [address] [place] [address] [place] Chloride [Moles/Vol] 103 mmol/L Normal 98-107 [facility] Comment on above: Order Comment: Speci men Type: BLOOD SPECIMENOrdering Facility: [facility] Address: [address] [place], [place] [id number] Performed By: #### 2 4323-8, 83041-2 ####[facility] LABCLIA [id number] [address] [place] [address] [place] CO2 [Moles/Vol] 23 mmol/L Normal 22-30 [facility] Comment on above: Order Comment: Speci men Type: BLOOD SPECIMENOrdering Facility: [facility] Address: [address] [place] [address] Performed By: #### 2 4323-8, 83534-8 ####[facility] LABCLIA [id number] [address] [place] [address] [place] Creatinine [Mass/Vol] 0.97 mg/dL Normal 0.73-1.22 [facility] Comment on above: Order Comment: Speci men Type: BLOOD SPECIMENOrdering Facility: [facility] Address: [address] [place] [address] Performed By: #### 2 4323-8, 12468-7 ####[facility] LABCLIA [id number] [facility] [address] [place] [address] [place] Creatinine and Glomerular filtration rate.predicted panel (S/P/Bld) 96 mL/min/1.73m??? Normal >=60 [facility] Comment on above: Order Comment: Yadiel dumont Type: BLOOD SPECIMENOrdering Facility: [facility] Address: [address] [place] [address] Result Comment: Tiffany mated Glomerular Filtration Rate [...] reflect actual GFR. Performed By: #### 2 4323-8, 78130-9 ####[facility] [id number] [place] [address] [place] Glucose [Mass/Vol] 112 mg/dL High 74-99 [facility] Comment on above: Order Comment: Yadiel dumont Type: BLOOD SPECIMENOrdering Facility: [facility] Address: [address] [place] [address] Result Comment: The [place] Diabetes Association (ADA) provides guidance for cutoff [...] Standards of Medical Care in Diabetes 2016, [place] Diabetes Association. Diabetes Care. 2016.39(Suppl 1). Performed By: #### 2 4323-8, 19287-9 ####[facility] [id number] [place] [address] [place] Potassium [Moles/Vol] 4.0 mmol/L Normal 3.7-5.1 [facility] Comment on above: Order Comment: Yadiel dumont Type: BLOOD SPECIMENOrdering Facility: [facility] Address: [address] [place] [address] Performed By: #### 2 4323-8, 24660-5 ####[facility] LABCLIA [id number] [address] [address] [place] Protein [Mass/Vol] 7.6 g/dL Normal 6.3-8.0 [facility] Comment on above: Order Comment: Speci men Type: BLOOD SPECIMENOrdering Facility: [facility] Address: [address] [place] [address] Performed By: #### 2 4323-8, 06085-5 ####[facility] LABCLIA [id number] [place] [address] [place] Sodium [Moles/Vol] 140 mmol/L Normal 136-144 [facility] Comment on above: Order Comment: Speci men Type: BLOOD SPECIMENOrdering Facility: [facility] Address: [address] [place] [address] Performed By: #### 2 4323-8, 88466-8 ####[facility] LABIA [id number] [place] [address] [place] Urea nitrogen [Mass/Vol] 15 mg/dL Normal 9-24 [facility] Comment on above: Order Comment: Speci men Type: BLOOD SPECIMENOrdering Facility: [facility] Address: [address] [place] [address] Performed By: #### 2 4323-8, 96265-2 ####[facility] LABCLIA [id number] [address] [address] [place] Lipid 1996 panelon 5 Cholesterol [Mass/Vol] 211 mg/dL High <200 [facility] Comment on above: Order Comment: Speci men Type: BLOOD SPECIMENOrdering Facility: [facility] Address: [address] [place] [address] Result Comment: <200 mg/dL, Desirable 200-239 mg/dL, Borderline high >239 mg/dL, High Performed By: #### 2 4323-8, 72238-3 ####[facility] LABCLIA [id number] [place] [id number] [facility] [place] Cholesterol in HDL [Mass/Vol] 42 mg/dL Normal >39 [facility] Comment on above: Order Comment: Speci men Type: BLOOD SPECIMENOrdering Facility: [facility] Address: [address] [place] [address] Result Comment: 40-5 9 mg/dL, Acceptable >59 mg/dL, High: Negative risk factor for coronary heart disease <40 mg/dL, Low: Positive risk factor for coronary heart disease Performed By: #### 2 4323-8, 88221-8 ####[facility] LABCLIA [id number] [address] STATES [facility] Cholesterol in LDL [Mass/Vol] 152 mg/dL High <100 [facility] Comment on above: Order Comment: Sophiei men Type: BLOOD SPECIMENOrdering Facility: [facility] Address: [address] [place] [address] Result Comment: <100 mg/dL, Optimal 100-129 mg/dL, Near optimal/above optimal 130-159 mg/dL, Borderline high 160-189 mg/dL, High >189 mg/dL, Very high Secondary prevention optimal LDL Cholesterol levels are recommended to be < 70 mg/dL Performed By: #### 2 4323-8, 37259-7 ####[facility] LABIA [id number] [address] OF [facility] Cholesterol in LDL/Cholesterol in HDL [Mass ratio] 3.62 {ratio} High <2.54 [facility] Comment on above: Order Comment: Yadiel dumont Type: BLOOD SPECIMENOrdering Facility: [facility] Address: [address] [place] [address] Result Comment: Refe rence: 1. National Cholesterol Education Program ATP III Guideline At-A-Glance Quick Desk Reference: National Heart, Lung, and Blood [place]. National Institutes of Health. 2001: NIH Publication No. 01-3305. 2. An International Atherosclerosis Society position paper: global recommendations for the management of dyslipidemia: executive summary, Atherosclerosis. 2014: 232(2):410-413. Performed By: #### 2 4323-8, 28836-7 ####[facility] LABCLIA [id number] [facility] [address] [place] [address] [place] Cholesterol in VLDL [Mass/Vol] 17 mg/dL Normal <30 [facility] Comment on above: Order Comment: Speci men Type: BLOOD SPECIMENOrdering Facility: [facility] Address: [address] [place] [address] Performed By: #### 2 432-8, 84954-9 ####[facility] LABCLIA [id number] [facility] [address] [place] [address] [place] Cholesterol non HDL [Mass/Vol] 169 mg/dL High <130 [facility] Comment on above: Order Comment: Sophiei men Type: BLOOD SPECIMENOrdering Facility: [facility] Address: [address] [place] [address] Result Comment: <130 mg/dL, Optimal 130-159 mg/dL, Near optimal/above optimal 160-189 mg/dL, Borderline high 190-219 mg/dL, High >219 mg/dL, Very high Secondary prevention optimal non HDL Cholesterol levels are recommended to be <100 mg/dL Performed By: #### 2 4328, 82652-9 ####[facility] LABCLIA [id number] [facility] [address] [place] [address] [place] Cholesterol.total/Ch olesterol in HDL [Mass ratio] 5.02 {ratio} Normal <5.10 [facility] Comment on above: Order Comment: Sophiei men Type: BLOOD SPECIMENOrdering Facility: [facility] Address: [address] [place] [id number] Performed By: #### 2 4323-8, 53533-3 ####[facility] LABCLIA [id number] [facility] [address] [place] [address] [place] FASTING TIME 12 hrs Normal [facility] Comment on above: Order Comment: Speci men Type: BLOOD SPECIMENOrdering Facility: [facility] Address: [address] [place] [address] [place] [address] Performed By: #### 2 4323-8, 52275-0 ####[facility] LABCLIA [id number] [address] [place] Triglyceride [Mass/Vol] 86 mg/dL Normal <150 [facility] Comment on above: Order Comment: Speci men Type: BLOOD SPECIMENOrdering Facility: [facility] Address: [address] [place] [address] Result Comment: <150 mg/dL, Normal 150-199 mg/dL, Borderline high 200-499 mg/dL, High >499 mg/dL, Very high Performed By: #### 2 4323-8, 27775-0 ####[facility] LABCLIA [id number] [address] OF [facility] CNPNon 07-12-2024 [facility] Telephone (4CQ) -------- ASTON NAPOLES ([id number]) 1975 M Date Time Provider Department 07/12/24 FRANCISCO JAVIER OSORIO 4CQ During your visit today, we recorded the following information about you: Rima Alexander 07/12/2024 1:57 PM Signed Pt called asking for a lab order for liver function Rebecca Francisco LPN 07/12/2024 2:11 PM Signed 6 month follow-up, 07/26/2024 Francisco Javier White LPN, MD 07/13/2024 12:52 PM Signed Complete metabolic panel and fasting lipid panel was ordered from last fall. This includes liver function tests. Kiah Penn MA 07/13/2024 1:09 PM Signed Left message on Kiah Penn MA Allergies As of Date: 07/12/2024 Noted Allergy Reaction COMPAZINE (PROCHLORPERAZINE EDISY*06/03/2017 14 - Other: See Comments Comments: Jittery feeling Date Reviewed: 06/07/2024 Reviewed by: Jackie Rice APRN.CERTIFIED CAREGIVER - Fully Assessed Prescriptions as of 07/13/2024 - triamcinolone acetonide (KENALOG) 0.1 % cream Apply 1 application to affected area two times a day. Apply twice daily from the neck down including the scrotum. - sildenafil (VIAGRA) 50 mg tablet Take 1 tablet by mouth once daily as needed. Take 30-60 minutes before sexual activity. Take on an empty stomach. - meloxicam (MOBIC) 15 mg tablet Take 1 tablet by mouth daily with food. - Cholecalciferol, Vitamin D3, (VITAMIN D) 25 mcg (1,000 unit) cap Take 1,000 Units by mouth once daily. - clotrimazole-betamethaso ne (LOTRISONE) cream Apply to affected area two times a day as needed. - fluticasone (FLONASE) 50 mcg/actuation nasal spray Use 2 Sprays in each nostril once daily. Rinse mouth after use. - DULoxetine (CYMBALTA) 30 mg capsule Take [...] 10 MG Problem List As Of Date 07/12/2024 Noted Resolved Anxiety and depression [F41.9, F32.A] [...] [M79.672, G89.29] 11/16/2023 Pre-op testing [Z01.818] 12/19/2023 03/29/2024 Achilles tendinitis of left lower extremity [M7*12/19/2023 History of seizures [Z87.898] 01/20/2024 Encounter Status:Closed by KIAH PENN on 07/13/24 [facility] CNTHERAPYon 07-06-2024 CNTHERAPY OT/PT/Speech Visit (PTWS) -------- ASTON NAPOLES ([id number]) 1975 M Date Time Provider Department 07/06/24 9:00 AM EN[facility] PTWS Date Time Provider Department Center 07/06/2024 9:00 AM [id number], SEAN PTWS Anthony Appiah Reason for Visit: PT Discharge [752] Primary Visit Diagnosis:Achilles tendinitis of left lower extremity [M76.62] Allergies As of Date: 07/06/2024 Noted Allergy Reaction COMPAZINE (PROCHLORPERAZINE EDISY*06/03/2017 14 - Other: See Comments Comments: Jittery feeling Date Reviewed: 06/07/2024 Reviewed by: Jackie Rice APRN.CERTIFIED CAREGIVER - Fully Assessed Prescriptions as of 07/10/2024 - triamcinolone acetonide (KENALOG) 0.1 % cream Apply 1 application to affected area two times a day. Apply twice daily from the neck down including the scrotum. - sildenafil (VIAGRA) 50 mg tablet Take 1 tablet by mouth once daily as needed. Take 30-60 minutes before sexual activity. Take on an empty stomach. - meloxicam (MOBIC) 15 mg tablet Take 1 tablet by mouth daily with food. - Cholecalciferol, Vitamin D3, (VITAMIN D) 25 mcg (1,000 unit) cap Take 1,000 Units by mouth once daily. - clotrimazole-betamethaso ne (LOTRISONE) cream Apply to affected area two times a day as needed. - fluticasone (FLONASE) 50 mcg/actuation nasal spray Use 2 Sprays in each nostril once daily. Rinse mouth after use. - DULoxetine (CYMBALTA) 30 mg capsule Take [...] mouth two times a day. 10 MG Normal [facility] CNCOon 06-07-2024 CNCO Letter Text Normal [facility] CNNURSEon 06-07-2024 CNNURSE Nurse Visit (WSTR) -------- ASTON NAPOLES ([id number]) 1975 M Date Time Provider Department 06/07/24 12:15 PM NURSE EXP [facility] During your visit today, we recorded the following information about you: Bianca Thomas MA 06/07/2024 12:15 PM Signed Specimen collected per ordering providers note and recommendation. Bianca Thomas MA Allergies As of Date: 06/07/2024 Noted Allergy Reaction COMPAZINE (PROCHLORPERAZINE EDISY*06/03/2017 14 - Other: See Comments Comments: Jittery feeling Date Reviewed: 06/07/2024 Reviewed by: Jackie Rice APRN.CERTIFIED CAREGIVER - Fully Assessed Primary Visit Diagnosis:Viral URI with cough [J06.9] Prescriptions as of 06/07/2024 - triamcinolone acetonide (KENALOG) 0.1 % cream Apply 1 application to affected area two times a day. Apply twice daily from the neck down including the scrotum. - sildenafil (VIAGRA) 50 mg tablet Take 1 tablet by mouth once daily as needed. Take 30-60 minutes before sexual activity. Take on an empty stomach. - meloxicam (MOBIC) 15 mg tablet Take 1 tablet by mouth daily with food. - Cholecalciferol, Vitamin D3, (VITAMIN D) 25 mcg (1,000 unit) cap Take 1,000 Units by mouth once daily. - clotrimazole-betamethaso ne (LOTRISONE) cream Apply to affected area two times a day as needed. - fluticasone (FLONASE) 50 mcg/actuation nasal spray Use 2 Sprays in each nostril once daily. Rinse mouth after use. - DULoxetine (CYMBALTA) 30 mg capsule Take [...] 10 MG Problem List As Of Date 06/07/2024 Noted Resolved Anxiety and depression [F41.9, F32.A] [...] [M79.672, G89.29] 11/16/2023 Pre-op testing [Z01.818] 12/19/2023 03/29/2024 Achilles tendinitis of left lower extremity [M7*12/19/2023 History of seizures [Z87.898] 01/20/2024 Encounter Status:Closed by BIANCA THOMAS on 06/07/24 [facility] CNTHERAPYon 06-01-2024 CNTHERAPY OT/PT/Speech Visit (PTWS) -------- ASTON NAPOLES ([id number]) 1975 M Date Time Provider Department 06/01/24 7:30 AM ENOC BYNUM PTWS Date Time Provider Department Center 06/01/2024 7:30 AM [id number], SEAN PTRAMANA Anthony Appiah Reason for Visit: PT Progress Note [1596] Primary Visit Diagnosis:Achilles tendinitis of left lower extremity [M76.62] Allergies As of Date: 06/01/2024 Noted Allergy Reaction COMPAZINE (PROCHLORPERAZINE EDISY*06/03/2017 14 - Other: See Comments Comments: Jittery feeling Date Reviewed: 05/10/2024 Reviewed by: Oswald Alexis MA - Fully Assessed Prescriptions as of 06/01/2024 - triamcinolone acetonide (KENALOG) 0.1 % cream Apply 1 application to affected area two times a day. Apply twice daily from the neck down including the scrotum. - sildenafil (VIAGRA) 50 mg tablet Take 1 tablet by mouth once daily as needed. Take 30-60 minutes before sexual activity. Take on an empty stomach. - meloxicam (MOBIC) 15 mg tablet Take 1 tablet by mouth daily with food. - Cholecalciferol, Vitamin D3, (VITAMIN D) 25 mcg (1,000 unit) cap Take 1,000 Units by mouth once daily. - clotrimazole-betamethaso ne (LOTRISONE) cream Apply to affected area two times a day as needed. - fluticasone (FLONASE) 50 mcg/actuation nasal spray Use 2 Sprays in each nostril once daily. Rinse mouth after use. - DULoxetine (CYMBALTA) 30 mg capsule Take [...] mouth two times a day. 10 MG Cap Maker: Therapy (PT/OT/Speech/Resp) ID: [id number] 06/01/2024 7:56 AM Author: ENOC BYNUM Signed by ENOC BYNUM PT on 06/01/2024 at 7:56 AM Document text: Program_ID:[id number] Access Code: [email or web address] URL: [email or web address] Date: 06-01-2024 Prepared By: Enoc Bynum Program Notes Exercises - Seated Calf Stretch with Strap - 3 x daily - 7 x weekly - 1 sets - 3 reps - Seated Soleus Stretch with Strap - 3 x daily - 7 x weekly - 1 sets - 3 reps - Towel Scrunches - 1 x daily - 7 x weekly - 3 sets - 10 reps - Seated Ankle Alphabet - 3 x daily - 7 x weekly - 1 sets - 1 reps - Long Sitting Ankle Eversion with Resistance - 1 x daily - 7 x weekly - 3 sets - 20 reps - Long Sitting Ankle Inversion with Resistance - 1 x daily - 7 x weekly - 3 sets - 20 reps - Single Leg Stance - 1 x daily - 7 x weekly - 1 sets - 3 reps - Heel Raises with Counter Support - 1 x daily - 7 x weekly - 3 sets - 20 reps - Heel Toe Raises with Counter Support - 1 x daily - 7 x weekly - 3 sets - 20 reps - Eccentric Heel Lowering on Step - 1 x daily - 7 x weekly - 3 sets - 20 reps Addendum Therapy (PT/OT/Speech/Resp) ID: [id number] 06/01/2024 7:59 AM Author: ENOC BYNUM Signed by ENOC BYNUM PT on 06/01/2024 at 7:59 AM * * * This document replaces document [id number] * * * Document text: Program_ID:[id number] Access Code: [email or web address] URL: [email or web address]/ Date: 06-01-2024 Prepared By: Enoc Bynum Program Notes Exercises - Seated Calf Stretch with Strap - 1 x daily - 7 x weekly - 1 sets - 3 reps - Seated Soleus Stretch with Strap - 1 x daily - 7 x weekly - 1 sets - 3 reps - Long Sitting Ankle Eversion with Resistance - 1 x daily - 7 x weekly - 3 sets - 20 reps - Long Sitting Ankle Inversion with Resistance - 1 x daily - 7 x weekly - 3 sets - 20 reps - Single Leg Stance - 1 x daily - 7 x weekly - 1 sets - 3 reps - Heel Toe Raises with Counter Support - 1 x daily - 7 x weekly - 3 sets - 20 reps - Eccentric Heel Lowering on Step - 1 x daily - 7 x weekly - 3 sets - 20 reps Normal [facility] THERAPY NTon 06-01-2024 THERAPY NT HNO ID: [id number] Author: ENOC BYNUM PT Service: ? Author Type: Physical Therapist Type: Therapy (PT/OT/Speech/Resp) Filed: 06/01/2024 07:59 Note Text: Program_ID:[id number] Access Code: [email or web address] URL: [email or web address] Date: 06-01-2024 Prepared By: Enoc Bynum Program Notes Exercises - Seated Calf Stretch with Strap - 1 x daily - 7 x weekly - 1 sets - 3 reps - Seated Soleus Stretch with Strap - 1 x daily - 7 x weekly - 1 sets - 3 reps - Long Sitting Ankle Eversion with Resistance - 1 x daily - 7 x weekly - 3 sets - 20 reps - Long Sitting Ankle Inversion with Resistance - 1 x daily - 7 x weekly - 3 sets - 20 reps - Single Leg Stance - 1 x daily - 7 x weekly - 1 sets - 3 reps - Heel Toe Raises with Counter Support - 1 x daily - 7 x weekly - 3 sets - 20 reps - Eccentric Heel Lowering on Step - 1 x daily - 7 x weekly - 3 sets - 20 reps Normal [facility] THERAPY NT HNO ID: [id number] Author: ENOC BYNUM PT Service: ? Author Type: Physical Therapist Type: Therapy (PT/OT/Speech/Resp) Filed: 06/01/2024 07:56 Note Text: Program_ID:[id number] Access Code: [email or web address] URL: [email or web address] Date: 06-01-2024 Prepared By: Enoc Bynum Program Notes Exercises - Seated Calf Stretch with Strap - 3 x daily - 7 x weekly - 1 sets - 3 reps - Seated Soleus Stretch with Strap - 3 x daily - 7 x weekly - 1 sets - 3 reps - Towel Scrunches - 1 x daily - 7 x weekly - 3 sets - 10 reps - Seated Ankle Alphabet - 3 x daily - 7 x weekly - 1 sets - 1 reps - Long Sitting Ankle Eversion with Resistance - 1 x daily - 7 x weekly - 3 sets - 20 reps - Long Sitting Ankle Inversion with Resistance - 1 x daily - 7 x weekly - 3 sets - 20 reps - Single Leg Stance - 1 x daily - 7 x weekly - 1 sets - 3 reps - Heel Raises with Counter Support - 1 x daily - 7 x weekly - 3 sets - 20 reps - Heel Toe Raises with Counter Support - 1 x daily - 7 x weekly - 3 sets - 20 reps - Eccentric Heel Lowering on Step - 1 x daily - 7 x weekly - 3 sets - 20 reps Normal [facility] CNOVon 05-10-2024 CNOV Office Visit (ORTHIN ) -------- ASTON NAPOLES ([id number]) 1975 M Date Time Provider Department 05/10/24 8:00 AM CARMEN ROJASIN During your visit today, we recorded the following information about you: Carmen Rojas MD 05/10/2024 8:18 AM Signed Aston Napoles Surgery Date: 02/01/2024 Surgery: L achilles debridement Interval History: He is now 3 months since surgery. They report minimal pain. Working on strengthening with PT. Doing well ASSESSMENT/PLAN: 1. Achilles tendinitis of left lower extremity - ICD9: 726.71, ICD10: M76.62 - Continue PT - No restrictions Follow up as needed Physical Exam: Well appearing male in no acute distress; Alert and oriented. Left Leg: Incision is clean dry and intact. There is no erythema warmth or drainage. He has palpable pulses, sensation is intact. He is able to flex and extend their toes and ankles without difficulty Radiographs: No imaging was performed today. Medication, History, and Allergies were reviewed and updated in the medical record. Carmen Rojas MD Orthopaedic Medical Decision Making (MDM) Complexity of problems: Stable chronic illness, Level of MDM: Minimal (2) Allergies As of Date: 05/10/2024 Noted Allergy Reaction COMPAZINE (PROCHLORPERAZINE EDISY*06/03/2017 14 - Other: See Comments Comments: Jittery feeling Date Reviewed: 05/10/2024 Reviewed by: Oswald Alexis MA - Fully Assessed Reason for Visit: Follow Up [171] Primary Visit Diagnosis:Achilles tendinitis of left lower extremity [M76.62] Prescriptions as of 05/10/2024 - triamcinolone acetonide (KENALOG) 0.1 % cream Apply 1 application to affected area two times a day. Apply twice daily from the neck down including the scrotum. - sildenafil (VIAGRA) 50 mg tablet Take 1 tablet by mouth once daily as needed. Take 30-60 minutes before sexual activity. Take on an empty stomach. - meloxicam (MOBIC) 15 mg tablet Take 1 tablet by mouth daily with food. - Cholecalciferol, Vitamin D3, (VITAMIN D) 25 mcg (1,000 unit) cap Take 1,000 Units by mouth once daily. - clotrimazole-betamethaso ne (LOTRISONE) cream Apply to affected area two times a day as needed. - fluticasone (FLONASE) 50 mcg/actuation nasal spray Use 2 Sprays in each nostril once daily. Rinse mouth after use. - DULoxetine (CYMBALTA) 30 mg capsule Take [...] 10 MG Problem List As Of Date 05/10/2024 Noted Resolved Anxiety and depression [F41.9, F32.A] [...] [M79.672, G89.29] 11/16/2023 Pre-op testing [Z01.818] 12/19/2023 03/29/2024 Achilles tendinitis of left lower extremity [M7*12/19/2023 History of seizures [Z87.898] 01/20/2024 Level of Service: OFFICE/OUTPATIENT ESTABLISHED SF MDM 10 MIN [53340] Encounter Status:Closed by SANDRA-CARMEN MYLES on 05/10/24 [facility] CNTHERAPYon 05-04-2024 CNTHERAPY OT/PT/Speech Visit (PTWS) -------- ASTON NAPOLES ([id number]) 1975 M Date Time Provider Department 05/04/24 7:30 AM ENOC BYNUM PTWS Date Time Provider Department Center 05/04/2024 7:30 AM [id number], SEAN PTWS Anthony Appiah Reason for Visit: PT Progress Note [1596] Primary Visit Diagnosis:Achilles tendinitis of left lower extremity [M76.62] Allergies As of Date: 05/04/2024 Noted Allergy Reaction COMPAZINE (PROCHLORPERAZINE EDISY*06/03/2017 14 - Other: See Comments Comments: Jittery feeling Date Reviewed: 04/23/2024 Reviewed by: Jonathan Foster APRN.CERTIFIED CAREGIVER, DNP - Fully Assessed Prescriptions as of 05/04/2024 - triamcinolone acetonide (KENALOG) 0.1 % cream Apply 1 application to affected area two times a day. Apply twice daily from the neck down including the scrotum. - sildenafil (VIAGRA) 50 mg tablet Take 1 tablet by mouth once daily as needed. Take 30-60 minutes before sexual activity. Take on an empty stomach. - meloxicam (MOBIC) 15 mg tablet Take 1 tablet by mouth daily with food. - Cholecalciferol, Vitamin D3, (VITAMIN D) 25 mcg (1,000 unit) cap Take 1,000 Units by mouth once daily. - clotrimazole-betamethaso ne (LOTRISONE) cream Apply to affected area two times a day as needed. - fluticasone (FLONASE) 50 mcg/actuation nasal spray Use 2 Sprays in each nostril once daily. Rinse mouth after use. - DULoxetine (CYMBALTA) 30 mg capsule Take [...] mouth two times a day. 10 MG Cap Maker: Therapy (PT/OT/Speech/Resp) ID: [id number] 05/04/2024 8:13 AM Author: ENOC BYNUM Signed by ENOC BYNUM PT on 05/04/2024 at 8:13 AM Document text: Program_ID:[id number] Access Code: [email or web address] URL: [email or web address]/ Date: 05-04-2024 Prepared By: Enoc Bynum Program Notes Exercises - Seated Calf Stretch with Strap - 3 x daily - 7 x weekly - 1 sets - 3 reps - Seated Soleus Stretch with Strap - 3 x daily - 7 x weekly - 1 sets - 3 reps - Towel Scrunches - 1 x daily - 7 x weekly - 3 sets - 10 reps - Seated Ankle Alphabet - 3 x daily - 7 x weekly - 1 sets - 1 reps - Long Sitting Ankle Eversion with Resistance - 1 x daily - 7 x weekly - 3 sets - 20 reps - Long Sitting Ankle Inversion with Resistance - 1 x daily - 7 x weekly - 3 sets - 20 reps - Single Leg Stance - 1 x daily - 7 x weekly - 1 sets - 3 reps - Heel Raises with Counter Support - 1 x daily - 7 x weekly - 3 sets - 20 reps - Heel Toe Raises with Counter Support - 1 x daily - 7 x weekly - 3 sets - 20 reps Normal [facility] THERAPY NTon 05-04-2024 THERAPY NT HNO ID: [id number] Author: ENOC BYNUM PT Service: ? Author Type: Physical Therapist Type: Therapy (PT/OT/Speech/Resp) Filed: 05/04/2024 08:13 Note Text: Program_ID:[id number] Access Code: [email or web address] URL: [email or web address] [email or web address]/ Date: 05-04-2024 Prepared By: Enoc Bynum Program Notes Exercises - Seated Calf Stretch with Strap - 3 x daily - 7 x weekly - 1 sets - 3 reps - Seated Soleus Stretch with Strap - 3 x daily - 7 x weekly - 1 sets - 3 reps - Towel Scrunches - 1 x daily - 7 x weekly - 3 sets - 10 reps - Seated Ankle Alphabet - 3 x daily - 7 x weekly - 1 sets - 1 reps - Long Sitting Ankle Eversion with Resistance - 1 x daily - 7 x weekly - 3 sets - 20 reps - Long Sitting Ankle Inversion with Resistance - 1 x daily - 7 x weekly - 3 sets - 20 reps - Single Leg Stance - 1 x daily - 7 x weekly - 1 sets - 3 reps - Heel Raises with Counter Support - 1 x daily - 7 x weekly - 3 sets - 20 reps - Heel Toe Raises with Counter Support - 1 x daily - 7 x weekly - 3 sets - 20 reps Normal [facility] CNOVon 04-27-2024 CNOV Office Visit (SHAWNEE ) -------- ASTON NAPOLES ([id number]) 1975 M Date Time Provider Department 04/27/24 2:45 PM EZEQUIEL DAVIS During your visit today, we recorded the following information about you: Ezequiel Davis MD 04/27/2024 4:19 PM Signed ASSESSMENT AND PLAN 1. Neoplasm of uncertain behavior of skin Right Nasal Sidewall 4 mm pink firm papule with arborizing blood vessel SKIN / NAIL BIOPSY Type of biopsy: tangential Informed consent: discussed and consent obtained Timeout: patient name, date of , surgical site, and procedure verified Procedure prep: Patient was prepped and draped in usual sterile fashion Prep type: Isopropyl alcohol Anesthesia: the lesion was anesthetized in a standard fashion Anesthetic: 1% lidocaine w/ epinephrine 1-100,000 local infiltration Instrument used: DermaBlade Hemostasis achieved with: pressure and aluminum chloride Outcome: patient tolerated procedure well Post-procedure details: sterile dressing applied and wound care instructions given Dressing type: bandage and petrolatum Additional details: Procedure to be Performed: Shave Medication administered: 1% lidocaine w/epinephrine 1:100,000 local Medication verification (double check) performed with: Dr. Davis Board Winder: [employer] LOT: [id number] EXP: 09/2025 Administered: 0.3 mL Specimen A - Surgical Pathology R/O: R/O: Angiofibroma vs basal cell carcinoma - Malignancy could not be excluded based on clinical examination. A shave biopsy will be performed today for histologic confirmation. - Risks include but are not limited to pain, bleeding, scarring, and infection. - Pt gave verbal consent. - R/O: Angiofibroma vs basal cell carcinoma - Follow-up: Pending pathology Related Medications lidocaine 1%-EPINEPHrine 1:100,000 0.3 mL injection 2. Lichen simplex chronicus Anterior Scrotum, Left Scrotum, Posterior Scrotum, Right Scrotum lichenified plaque with excoriations and scale - Status: chronic, unstable - [facility] he was treated with both Tremfya and Taltz. He says his itching and scrotum were improved while on Tremfya. Of note, the patient has no signs of psoriasis today, and the scrotum starts off as itchy before the plaque presents. - Lichen simplex chronicus (LSC) is the result of a chronic itch-scratch cycle often secondary to another process. To gain control of this condition, we must address the underlying cause and decrease inflammation in the affected skin that perpetuates the problem. - Apply triamcinolone 0.1% cream as directed. Risks, benefits and alternatives discussed. For further review of side effects, we directed patient to the package insert(s). Do not apply at least 2 weeks prior to next visit - Discussed the importance of dry skin care because dry skin can be itchy and develop rashes. We recommend - bathe daily, keep bathing <10 minutes, use lukewarm water, use sensitive, fragrance-free soaps like Dove, pat dry, and apply a moisturizer or Vaseline/Aquaphor immediately after patting dry. Additionally, we recommend using All Clear for washing clothes. - Follow-up: 12 weeks triamcinolone acetonide (KENALOG) 0.1 % cream - Anterior Scrotum, Left Scrotum, Posterior Scrotum, Right Scrotum Apply 1 application to affected area two times a day. Apply twice daily from the neck down including the scrotum. 3. Xerosis cutis dry xerotic scale Xerosis cutis means dry skin and dry skin can lead to pruritic (ie, itchy), sensitive skin. - Status: self-limited, minor problem with associated pruritus of the skin. Improvement with psoriasis medications but no signs of psoriasis make an underlying etiology like atopic dermatitis possible. - Discussed the importance of dry skin care because dry skin can be itchy and develop rashes. We recommend - bathe daily, keep bathing <10 minutes, use lukewarm water, use sensitive, fragrance-free soaps like Dove, pat dry, and apply a moisturizer or Vaseline/Aquaphor immediately after patting dry. Additionally, we recommend using All Clear for washing clothes. - Apply triamcinolone as directed for the pruritus. Risks, benefits and alternatives discussed. For further review of side effects, we directed patient to the package insert(s). - Follow-up: as needed. 4. Pruritus of skin Related Medications triamcinolone acetonide (KENALOG) 0.1 % cream Apply 1 application to affected area two times a day. Apply twice daily from the neck down including the scrotum. UNIVERSAL PROTOCOL / SAFETY CHECKLIST Procedure to be Performed: Shave x 1 Sign In: A Moment of CARE was completed. Personnel directly involved with the procedure wore the appropriate PPE (Personal Protective Equipment). Patient/Surrogate Stated/Verified: PATIENT VERIFIED (optional for EMERGENT procedures): Patient name, Date (more content not included)... Normal [facility] SKIN / NAIL BIOPSYon 025 Type of biopsy: tangential Informed consent: discussed and consent obtained Timeout: patient name, date of , surgical site, and procedure verified Procedure prep: Patient was prepped and draped in usual sterile fashion Prep type: Isopropyl alcohol Anesthesia: the lesion was anesthetized in a standard fashion Anesthetic: 1% lidocaine w/ epinephrine 1-100,000 local infiltration Instrument used: DermaBlade Hemostasis achieved with: pressure and aluminum chloride Outcome: patient tolerated procedure well Post-procedure details: sterile dressing applied and wound care instructions given Dressing type: bandage and petrolatum Additional details: Procedure to be Performed: Shave Medication administered: 1% lidocaine w/epinephrine 1:100,000 local Medication verification (double check) performed with: Dr. Davis Board Winder: [employer] LOT: [id number] EXP: 09/2025 Administered: 0.3 mL [facility] SURGICAL PATHOLOGYon 025 CASE REPORT Normal [facility] Comment on above: Order Comment: Speci men Type: TISSUE SPECIMENOrdering Facility: [facility] Address: [address] [place] [address] Result Comment: Surg ical Pathology Report Case: [id number] Authorizing Provider: Ezequiel Davsi MD Collected: 04/27/2024 03:13 PM Ordering Location: [facility] [place] Received: 04/27/2024 04:56 PM [facility] Pathologist: Juan Deulna MD, PhD Specimen: Skin, Right Nasal Sidewall Performed By: #### S ####[facility] LABCLIA [id number] [place] [address] [place] FINAL DIAGNOSIS Normal [facility] Comment on above: Order Comment: Speci men Type: TISSUE SPECIMENOrdering Facility: [facility] Address: [address] [place] [address] Result Comment: A. S kin, right nasal sidewall, shave biopsy: - Sebaceous hyperplasia. APPLE/LIDIA/mm/04/30/2024 Performed By: #### S ####[facility] LABCLIA [id number] [place] [address] [place] FINAL PERFORMING LAB Normal [facility] Comment on above: Order Comment: Speci men Type: TISSUE SPECIMENOrdering Facility: [facility] Address: [address] [place] [address] Result Comment: Diag nostic interpretation performed at: [facility], [address] [place] [address] CLIA# [id number] Hr Business Partner: Delta Garibay MD Performed By: #### S ####[facility] LABCLIA [id number] [address] [place] GROSS DESCRIPTION A. Skin Normal [facility] Comment on above: Order Comment: Speci men Type: TISSUE SPECIMENOrdering Facility: [facility] Address: [address] [place] [address] Result Comment: Rece ived in formalin is a 0.6 x 0.4 x 0.3 cm shave of skin. On the skin surface there is a 0.6 cm rosario[place] elevated and firm area. The specimen is bisected. Totally submitted in one cassette. [facility] April 28, 2024 12:24 AM Gross examination performed at [facility], [address] [place] [address] Performed By: #### S ####[facility] LABCLIA [id number] [address] [place] CNPKimberly 04-25-2024 CNPN [facility]phone [facility] ASTON NAPOLES ([id number]) 1975 M Date Time Provider Department 04/25/24 ELIZABETH VASQUEZ DMFN During your visit today, we recorded the following information about you: Nayely Rooney 04/25/2024 3:46 PM Signed LVM and MCM to schedule TMJ Consult with Dr. Vasquez. Allergies As of Date: 04/25/2024 Noted Allergy Reaction COMPAZINE (PROCHLORPERAZINE EDISY*06/03/2017 14 - Other: See Comments Comments: Jittery feeling Date Reviewed: 04/23/2024 Reviewed by: Jonathan Foster APRN.CERTIFIED CAREGIVER, DNP - Fully Assessed Reason for Visit: Appointment [186] Prescriptions as of 04/25/2024 - sildenafil (VIAGRA) 50 mg tablet Take 1 tablet by mouth once daily as needed. Take 30-60 minutes before sexual activity. Take on an empty stomach. - meloxicam (MOBIC) 15 mg tablet Take 1 tablet by mouth daily with food. - Cholecalciferol, Vitamin D3, (VITAMIN D) 25 mcg (1,000 unit) cap Take 1,000 Units by mouth once daily. - triamcinolone acetonide (KENALOG) 0.1 % cream Apply 1 application to affected area two times a day. - clotrimazole-betamethaso ne (LOTRISONE) cream Apply to affected area two times a day as needed. - fluticasone (FLONASE) 50 mcg/actuation nasal spray Use 2 Sprays in each nostril once daily. Rinse mouth after use. - DULoxetine (CYMBALTA) 30 mg capsule Take [...] 10 MG Problem List As Of Date 04/25/2024 Noted Resolved Anxiety and depression [F41.9, F32.A] [...] [M79.672, G89.29] 11/16/2023 Pre-op testing [Z01.818] 12/19/2023 03/29/2024 Achilles tendinitis of left lower extremity [M7*12/19/2023 History of seizures [Z87.898] 01/20/2024 Encounter Status:Closed by NAYELY ROONEY on 04/25/24 [facility] CNOVon 04-23-2024 CNOV Office Visit (UROLWS ) -------- ASTON NAPOLES ([id number]) 1975 M Date Time Provider Department 04/23/24 3:30 PM JONATHAN FOSTER During your visit today, we recorded the following information about you: Pulse Blood pressure 98/minute 150/92 Jonathan Foster APRN.CERTIFIED CAREGIVER, DNP 04/23/2024 4:28 PM Signed [facility] MALE PATIENT - [...] symptoms for the past year. Occasional leakage. Referred for Cysto/TRUS only. No smoking hx. Referred to Dr. Petty for a Cysto/TRUS in February. No bladder mucosal pathology. Small bladder wall thickening noted. Prostate Volume was 18gm. The findings result in his urinary symptoms which sound most consistent with possible bladder spasms and voluntary urine retention. It was recommended patient avoid holding his urine for long periods of time PRESENTING HISTORY: Hematuria: none Obstructive voiding symptoms: weak stream and incomplete emptying. Irritative voiding symptoms: frequency and urgency Urinary retention: no Urinary incontinence: no Urinary tract infection: no No family hx of Prostate Cancer ED: Erections have been difficult to maintain. No prior use of Viagra or Cialis. Patient Entered Questionnaires: INTERNATIONAL PROSTATE SYMPTOM SCORE (I-PSS) PREVIOUS TOTAL IPSS SCORE: 20 QOL = 5 1. Incomplete emptying 0 2. Frequency 3 3. Intermittency 2 4. Urgency 5 5. Weak stream 2 6. Straining 0 7. Nocturia 0 TOTAL IPSS SCORE 12 QOL = 4 PROMIS Global Health 10/26/2021 10/30/2023 01/29/2024 PROMIS Global Health Scale Physical Health Percentile 53 7 10 Mental Health Percentile 73 34 34 Percentiles provide an indication of how the patient's score ranks in relation to the general population. Higher percentile rankings indicate better function/quality of life. 50th percentile is the average of the general population and indicates half of respondents had a worse score. HISTORY: PAST MEDICAL HISTORY Diagnosis Date Achilles tendinitis of left lower extremity 12/19/2023 Anxiety and depression 02/27/2018 HLD (hyperlipidemia) 08/04/2023 [...] Grandfather MEDICATIONS: Current Outpatient Medications Medication Sig meloxicam (MOBIC) 15 mg tablet Take 1 tablet by mouth daily with food. Cholecalciferol, Vitamin D3, (VITAMIN D) 25 mcg (1,000 unit) cap Take 1,000 Units by mouth once daily. triamcinolone acetonide (KENALOG) 0.1 % cream Apply 1 application to affected area two times a day. clotrimazole-betamethaso ne (LOTRISONE) cream Apply to affected area two [...] mouth two times a day. 10 MG sildenafil (VIAGRA) 50 mg tablet Take 1 tablet by mouth once daily as needed (more content not included)... Normal [facility] UA DIP, URINE (POC)on 2024 BILIRUBIN UA (POCT) Negative Negative [facility] CLARITY UA (POCT) Clear [facility] COLOR UA (POCT) Yellow [facility] GLUCOSE UA (POCT) Negative Negative mg/dL [facility] Hemoglobin Ql (U) Negative Negative [facility] Interpretation and review of laboratory results Abnormal [facility] KETONE UA (POCT) Negative Negative mg/dL [facility] LEUKOCYTES UA (POCT) Negative Negative [facility] NITRITE UA (POCT) Negative Negative [facility] PH UA (POCT) 6.0 4.5 - 8.0 [facility] Protein Ql (U) Negative Negative mg/dL [facility] SPECIFIC GRAVITY UA (POCT) 1.025 1.005 - 1.030 [facility] UROBILINOGEN UA (POCT) 2.0 Abnormal Normal E.U./dL [facility] Location:[facility], [address] , [place], [place], [id number] [place] [address] POINT OF CARE [facility] CNOVon 04-17-2024 CNOV Office Visit (ORTHBE ) -------- ASTON NAPOLES ([id number]) 1975 M Date Time Provider Department 04/17/24 8:45 AM CARMEN ROJAS During your visit today, we recorded the following information about you: Carmen Rojas MD 04/17/2024 9:50 AM Signed Aston Napoles Surgery Date: 02/01/2024 Surgery: L achilles tendonitis Interval History: He is now 10 weeks since surgery. They report having left heel pain. Foot was very red on Tuesday, but is improving. No drainage. ASSESSMENT/PLAN: - Will continue to monitor - start mobic - follow up as scheduled. Physical Exam: Well appearing male in no acute distress; Alert and oriented. Left Leg: Incision is clean dry and intact. There is no erythema warmth or drainage. He has palpable pulses, sensation is intact. He is able to flex and extend their toes and ankles without difficulty Radiographs: No imaging was performed today. Medication, History, and Allergies were reviewed and updated in the medical record. Carmen Rojas MD Allergies As of Date: 04/17/2024 Noted Allergy Reaction COMPAZINE (PROCHLORPERAZINE EDISY*06/03/2017 14 - Other: See Comments Comments: Jittery feeling Date Reviewed: 04/09/2024 Reviewed by: Gaetano Bennett OCCA - Fully Assessed Reason for Visit: Follow Up [171] Primary Visit Diagnosis:Achilles tendinitis of left lower extremity [M76.62] Order(s):meloxicam (MOBIC) 15 mg tabletTake 1 tablet by mouth daily with food.Disp: 30 tabletRfl: 2 Prescriptions as of 04/17/2024 - meloxicam (MOBIC) 15 mg tablet Take 1 tablet by mouth daily with food. - Cholecalciferol, Vitamin D3, (VITAMIN D) 25 mcg (1,000 unit) cap Take 1,000 Units by mouth once daily. - triamcinolone acetonide (KENALOG) 0.1 % cream Apply 1 application to affected area two times a day. - clotrimazole-betamethaso ne (LOTRISONE) cream Apply to affected area two times a day as needed. - fluticasone (FLONASE) 50 mcg/actuation nasal spray Use 2 Sprays in each nostril once daily. Rinse mouth after use. - DULoxetine (CYMBALTA) 30 mg capsule Take [...] 10 MG Problem List As Of Date 04/17/2024 Noted Resolved Anxiety and depression [F41.9, F32.A] [...] [M79.672, G89.29] 11/16/2023 Pre-op testing [Z01.818] 12/19/2023 03/29/2024 Achilles tendinitis of left lower extremity [M7*12/19/2023 History of seizures [Z87.898] 01/20/2024 Prescriptions ordered this encounter Disp Refills Start End MELOXICAM 15 MG TABLET 30 t* 2 04/17/2024 07/16/2024 Route: ORAL Sig: Take 1 tablet by mouth daily with food. Medications Discontinued During This Encounter Prescriptions - naproxen sodium (ALEVE ORAL) (Discontinued) Take 1 tablet by mouth every 8 hours as needed. Level of Service: POSTOP FOLLOW UP VISIT RELATED TO ORIGINAL PX [88976] Disposition: Return if symptoms worsen or fail to improve. Follow-up and Disposition History for Encounter Date Provider Department Center 04/17/2024 [id number] ROJAS [facility] Be Encounter Status:Closed by CARMEN ROJAS on 04/17/24 [facility] CNTHERAPYon 04-13-2024 CNTHERAPY OT/PT/Speech Visit (PTWS) -------- ASTON NAPOLES ([id number]) 1975 M Date Time Provider Department 04/13/24 7:30 AM ENOC BYNUM PTRAMANA Date Time Provider Department Center 04/13/2024 7:30 AM [id number], SEAN PTRAMANA Appiah Reason for Visit: Physical Therapy [503] Primary Visit Diagnosis:Achilles tendinitis of left lower extremity [M76.62] Other Visit Diagnosis:Referred otalgia of left ear [H92.02] Allergies As of Date: 04/13/2024 Noted Allergy Reaction COMPAZINE (PROCHLORPERAZINE EDISY*06/03/2017 14 - Other: See Comments Comments: Jittery feeling Date Reviewed: 04/09/2024 Reviewed by: Gaetano Bennett OCCA - Fully Assessed Prescriptions as of 04/13/2024 - Cholecalciferol, Vitamin D3, (VITAMIN D) 25 mcg (1,000 unit) cap Take 1,000 Units by mouth once daily. - triamcinolone acetonide (KENALOG) 0.1 % cream Apply 1 application to affected area two times a day. - clotrimazole-betamethaso ne (LOTRISONE) cream Apply to affected area two times a day as needed. - fluticasone (FLONASE) 50 mcg/actuation nasal spray Use 2 Sprays in each nostril once daily. Rinse mouth after use. - naproxen sodium (ALEVE ORAL) Take 1 [...] mouth two times a day. 10 MG Normal [facility] CNOVon 04-09-2024 CNOV Office Visit (OTOLBD ) -------- DONYASTON Farrar ([id number]) 1975 M Date Time Provider Department 04/09/24 1:00 PM EDWARD RAVI OTOLBD During your visit today, we recorded the following information about you: Edward Ravi MD 04/09/2024 2:13 PM Signed OTOLARYNGOLOGY-HEAD AND NECK SURGERY CC: Consultation requested by Dr. chamberlain for an opinion regarding hearing loss. My final recommendations will be communicated back to the requesting physician by way of shared Medical record or letter to requesting physician via US mail. Assessment/Plan: ASSESSMENT/PLAN: ASSESSMENT/PLAN: 1. Asymmetrical sensorineural hearing loss - ICD9: 389.16, ICD10: H90.3 (primary diagnosis) MRI normal Hearing clearance provided - HEARING TEST/AUDIOGRAM 2. Referred otalgia of left ear - ICD9: 388.72, ICD10: H92.02 Likely 2/2 TMJ dysfunction - CONSULT TO PHYSICAL THERAPY - CONSULT TO DENTISTRY MD Edward Sharma MD HPI: 49M with left sided hearing loss over months and ear pain, intermittent. Here for evaluation. No drainage. No other issues. ALLERGIES Allergen Reactions Compazine [Prochlor* Other: See Comments Jittery feeling Current Outpatient Medications Medication Sig Cholecalciferol, Vitamin D3, (VITAMIN D) 25 mcg (1,000 unit) cap Take 1,000 Units by mouth once daily. triamcinolone acetonide (KENALOG) 0.1 % cream Apply 1 application to affected area two times a day. clotrimazole-betamethaso ne (LOTRISONE) cream Apply to affected area two times a day as needed. fluticasone (FLONASE) 50 mcg/actuation nasal spray Use 2 Sprays in each nostril once daily. Rinse mouth after use. naproxen sodium (ALEVE ORAL) Take 1 tablet [...] mouth two times a day. 10 MG No current facility-administered medications for this visit. PAST MEDICAL HISTORY Diagnosis Date Achilles tendinitis of left lower extremity 12/19/2023 Anxiety and depression 02/27/2018 HLD (hyperlipidemia) 08/04/2023 [...] SKIN BIOPSY HX TONSILLECTOMY HX 1979 Social History: Social History Tobacco Use Smoking [...] disease Paternal Grandmother Heart disease Paternal Grandfather ROS: GENERAL: No weight loss, malaise or fevers. HEENT: Negative for frequent or significant headaches, No changes in hearing or vision, No nasal bleeding, congestion or rhinorrhea, No sore throat or change in voice NECK: Negative for lumps, goiter, pain and significant neck swelling RESPIRATORY: Negative for cough, hemoptysis, wheezing or shortness of breath NEUROLOGIC: Negative for focal numbness or weakness, headaches and dizziness or syncope. SKIN: Negative for lesions, rash, and itching. PHYSICAL EXAM: On physical examination Aston Napoles is a well-developed, well nourished male. His speech is nl and his voice is nl. Mental status revealed patient to be alert and oriented. Mood is appropriate. Details of the physical examination: CRANIAL NERVE EXAM: II: Pupillary reflexes normal III, IV, : EOM normal V: 1,2,3: normal sensation VII: Normal strength in all divisions. VIII: Hearing grossly normal. IX, X: palatal elevation and sensation XI: Shoulder strength normal XII: Tongue mobility normal HEAD AND FACE: Physical examination of the head, neck, external nose, external ears, mouth and face fails to demonstrate any sign (more content not included)... Normal [facility] CNTHERAPYon 04-06-2024 CNTHERAPY OT/PT/Speech Visit (PTWS) -------- ASTON NAPOLES ([id number]) 1975 M Date Time Provider Department 04/06/24 1:45 PM ENOC BYNUM PTRAMANA Date Time Provider Department Center 04/06/2024 1:45 PM [id number], SEAN PTRAMANA [place] Reason for Visit: Physical Therapy [503] Primary Visit Diagnosis:Achilles tendinitis of left lower extremity [M76.62] Allergies As of Date: 04/06/2024 Noted Allergy Reaction COMPAZINE (PROCHLORPERAZINE EDISY*06/03/2017 14 - Other: See Comments Comments: Jittery feeling Date Reviewed: 03/29/2024 Reviewed by: Rebecca Francisco LPN - Fully Assessed Prescriptions as of 04/06/2024 - Cholecalciferol, Vitamin D3, (VITAMIN D) 25 mcg (1,000 unit) cap Take 1,000 Units by mouth once daily. - triamcinolone acetonide (KENALOG) 0.1 % cream Apply 1 application to affected area two times a day. - clotrimazole-betamethaso ne (LOTRISONE) cream Apply to affected area two times a day as needed. - fluticasone (FLONASE) 50 mcg/actuation nasal spray Use 2 Sprays in each nostril once daily. Rinse mouth after use. - naproxen sodium (ALEVE ORAL) Take 1 [...] mouth two times a day. 10 MG Cap Maker: Addendum Therapy (PT/OT/Speech/Resp) ID: [id number] 04/06/2024 2:15 PM Author: ENOC BYNUM Signed by ENOC BYNUM PT on 04/06/2024 at 2:15 PM * * * This document replaces document [id number] * * * Document text: Program_ID:[id number] Access Code: [email or web address] URL: [email or web address] Date: 04-06-2024 Prepared By: Enoc Bynum Program Notes Exercises - Seated Calf Stretch with Strap - 3 x daily - 7 x weekly - 1 sets - 3 reps - Seated Soleus Stretch with Strap - 3 x daily - 7 x weekly - 1 sets - 3 reps - Ankle Inversion Eversion Towel Slide - 1 x daily - 7 x weekly - 3 sets - 20 reps - Towel Scrunches - 1 x daily - 7 x weekly - 3 sets - 10 reps - Seated Ankle Alphabet - 3 x daily - 7 x weekly - 1 sets - 1 reps - Long Sitting Ankle Eversion with Resistance - 1 x daily - 7 x weekly - 3 sets - 20 reps - Long Sitting Ankle Inversion with Resistance - 1 x daily - 7 x weekly - 3 sets - 20 reps - Long Sitting Ankle Plantar Flexion with Resistance - 1 x daily - 7 x weekly - 3 sets - 20 reps - Long Sitting Ankle Dorsiflexion with Anchored Resistance - 1 x daily - 7 x weekly - 3 sets - 20 reps - Single Leg Stance - 1 x daily - 7 x weekly - 1 sets - 3 reps Normal [facility] THERAPY NTon 04-06-2024 THERAPY NT HNO ID: [id number] Author: ENOC BYNUM PT Service: ? Author Type: Physical Therapist Type: Therapy (PT/OT/Speech/Resp) Filed: 04/06/2024 14:15 Note Text: Program_ID:[id number] Access Code: [email or web address] URL: [email or web address] Date: 04-06-2024 Prepared By: Enoc Bynum Program Notes Exercises - Seated Calf Stretch with Strap - 3 x daily - 7 x weekly - 1 sets - 3 reps - Seated Soleus Stretch with Strap - 3 x daily - 7 x weekly - 1 sets - 3 reps - Ankle Inversion Eversion Towel Slide - 1 x daily - 7 x weekly - 3 sets - 20 reps - Towel Scrunches - 1 x daily - 7 x weekly - 3 sets - 10 reps - Seated Ankle Alphabet - 3 x daily - 7 x weekly - 1 sets - 1 reps - Long Sitting Ankle Eversion with Resistance - 1 x daily - 7 x weekly - 3 sets - 20 reps - Long Sitting Ankle Inversion with Resistance - 1 x daily - 7 x weekly - 3 sets - 20 reps - Long Sitting Ankle Plantar Flexion with Resistance - 1 x daily - 7 x weekly - 3 sets - 20 reps - Long Sitting Ankle Dorsiflexion with Anchored Resistance - 1 x daily - 7 x weekly - 3 sets - 20 reps - Single Leg Stance - 1 x daily - 7 x weekly - 1 sets - 3 reps Normal [facility] CNOVon 03-29-2024 CNOV Office Visit (INTMWS ) -------- ASTON NAPOLES ([id number]) 1975 M Date Time Provider Department 03/29/24 10:00 AM FRANCISCO JAVIER OSORIO INTMWS During your visit today, we recorded the following information about you: Temperature Pulse Respiration Blood pressure 100.8 degrees 84/minute 20/minute 136/88 Weight 99.7 kg Francisco Javier Osorio MD 03/29/2024 10:46 AM Signed This note was created using [employer]riter. Subjective Aston Napoles is a 49 year old male who presents with complaint of URI, sinus symptoms, sore throat, nasal congestion, post nasal drip, ear pain left , cough- nonproductive, and fever for 4 days. He denies dyspnea, wheezing, trouble swallowing, nausea, vomiting, and diarrhea. Treatments tried include Ibuprofen and Nyquil and Dayquil with partial relief of symptoms. Review of Systems Per HPI. 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 Hld (Hyperlipidemia) Psoriasis Vitamin D Deficiency Chronic Heel Pain, Left Achilles Tendinitis of Left Lower Extremity History of Seizures Social History Tobacco Use Smoking status: Never Smokeless tobacco: Never Vaping Use Vaping status: Never Used Substance Use Topics Alcohol use: Yes Comment: once a month Drug use: Never Current Outpatient Medications Medication Sig Cholecalciferol, Vitamin D3, (VITAMIN D) 25 mcg (1,000 unit) cap Take 1,000 Units by mouth once daily. triamcinolone acetonide (KENALOG) 0.1 % cream Apply 1 application to affected area two times a day. clotrimazole-betamethaso ne (LOTRISONE) cream Apply to affected area two times a day as needed. fluticasone (FLONASE) 50 mcg/actuation nasal spray Use 2 Sprays in each nostril once daily. Rinse mouth after use. naproxen sodium (ALEVE ORAL) Take 1 tablet [...] mouth two times a day. 10 MG No current facility-administered medications for this visit. Objective BP 136/88 (BP Site: Left Arm, BP Position: Sitting, BP Cuff Size: Large Adult) Pulse 84 Temp (!) 38.2 ?C (100.8 ?F) (Temporal) Resp 20 Wt 99.7 kg (219 lb 12.8 oz) BMI 34.43 kg/m? Physical Exam Constitutional: General: He is not in acute distress. Appearance: He is ill-appearing. HENT: Right Ear: Tympanic membrane normal. No tenderness. Left Ear: No tenderness. No middle ear effusion. Tympanic membrane is erythematous. Nose: Mucosal edema present. No congestion. Right Turbinates: Not swollen. Left Turbinates: Swollen. Right Sinus: No maxillary sinus tenderness or frontal sinus tenderness. Left Sinus: No maxillary sinus tenderness or frontal sinus tenderness. Mouth/Throat: Pharynx: Posterior oropharyngeal erythema present. No oropharyngeal exudate. Eyes: Conjunctiva/sclera: Conjunctivae normal. Cardiovascular: Heart sounds: Normal heart sounds. Pulmonary: Breath sounds: Normal breath sounds. No wheezing, rhonchi or rales. Lymphadenopathy: Cervical: No cervical adenopathy. Neurological: Mental Status: He is alert. Assessment and Plan 1. Viral upper respiratory tract infection - ICD9: 465.9, ICD10: J06.9 - Discussed viral etiology and rationale for treatment. - Symptomatic treatment with prn analgesia - Supportive care with fluids and rest - The patient may also use benzonatate he has on hand from a previous prescription. - Follow up if symptoms persist or sooner if worsening of symptoms - COVID AND INFLUENZA A/B AND RSV PCR, ROUTINE - We discussed potential treatment with Paxlovid by tomorrow if positive. He has taken Paxlovid in the past. Francisco Javier Osorio MD Allergies As of Date: 03/29/2024 Noted Allergy Reaction COMPAZINE (PROCHLORPERAZINE EDISY*06/03/2017 14 - Other: See Comments Comments: Jittery feeling Date Reviewed: 03/29/2024 Reviewed by: Rebecca Francisco LPN - Fully Assessed Reason for Visit: Cough [28] Fever [47] Primary Visit Diagnosis:Viral upper respiratory tract infection [J06.9] Order(s):COVID AND INFLUENZA A/B AND RSV PCR, ROUTINE [[id number]] Order #: [id number]. #:[id number] Prescriptions as of 03/29/2024 - Cholecalciferol, Vitamin D3, (VITAMIN D) 25 mcg (1,000 unit) cap Take 1,000 Units by mouth once daily. - triamcinolone acetonide (KENALOG) (more content not included)... Normal [facility] COVID AND INFLUENZA A/B AND RSV PCR, ROUTINEon 03-29-2024 SARS-CoV-2 (COVID-19) RNA EZRA+probe Ql (Unsp spec) SARS-COV-2 (AGENT OF COVID-19) RNA: Not detected INFLUENZA A RNA: Not detected INFLUENZA B RNA: Not detected RESPIRATORY SYNCYTIAL VIRUS (RSV) RNA: Not detected Normal [facility] Comment on above: Performed By: #### C VFLRS ####[facility] LABCLIA [id number] [address] [place] CNTHERAPYon 03-28-2024 CNTHERAPY OT/PT/Speech Visit (PTWS) -------- ASTON NAPOLES ([id number]) 1975 M Date Time Provider Department 03/28/24 3:30 PM ENOC BYNUM PTWS Date Time Provider Department Center 03/28/2024 3:30 PM [id number], SEAN PTWS Anthony [place]iah Reason for Visit: Physical Therapy [503] Primary Visit Diagnosis:Achilles tendinitis of left lower extremity [M76.62] Allergies As of Date: 03/28/2024 Noted Allergy Reaction COMPAZINE (PROCHLORPERAZINE EDISY*06/03/2017 14 - Other: See Comments Comments: Jittery feeling Date Reviewed: 03/15/2024 Reviewed by: Oswald Alexis MA - Fully Assessed Prescriptions as of 03/29/2024 - Cholecalciferol, Vitamin D3, (VITAMIN D) 25 mcg (1,000 unit) cap Take 1,000 Units by mouth once daily. - aspirin 325 mg tablet Take 1 tablet by mouth two times a day. - triamcinolone acetonide (KENALOG) 0.1 % cream Apply 1 application to affected area two times a day. - clotrimazole-betamethaso ne (LOTRISONE) cream Apply to affected area two times a day as needed. - fluticasone (FLONASE) 50 mcg/actuation nasal spray Use 2 Sprays in each nostril once daily. Rinse mouth after use. - aspirin/acetaminophen/ca ffeine (EXCEDRIN MIGRAINE ORAL) Take 2 tablets by [...] mouth two times a day. 10 MG Normal [facility] CNTHERAPYon 03-23-2024 CNTHERAPY OT/PT/Speech Visit (PTWS) -------- ASTON NAPOLES ([id number]) 1975 M Date Time Provider Department 03/23/24 1:00 PM ENOC BYNUM PTWS Date Time Provider Department Center 03/23/2024 1:00 PM [id number], SEAN PTWS Anthony Appiah Reason for Visit: PT Eval [747] Primary Visit Diagnosis:Achilles tendinitis of left lower extremity [M76.62] Allergies As of Date: 03/23/2024 Noted Allergy Reaction COMPAZINE (PROCHLORPERAZINE EDISY*06/03/2017 14 - Other: See Comments Comments: Jittery feeling Date Reviewed: 03/15/2024 Reviewed by: Oswald Alexis MA - Fully Assessed Prescriptions as of 03/23/2024 - Cholecalciferol, Vitamin D3, (VITAMIN D) 25 mcg (1,000 unit) cap Take 1,000 Units by mouth once daily. - aspirin 325 mg tablet Take 1 tablet by mouth two times a day. - triamcinolone acetonide (KENALOG) 0.1 % cream Apply 1 application to affected area two times a day. - clotrimazole-betamethaso ne (LOTRISONE) cream Apply to affected area two times a day as needed. - fluticasone (FLONASE) 50 mcg/actuation nasal spray Use 2 Sprays in each nostril once daily. Rinse mouth after use. - aspirin/acetaminophen/ca ffeine (EXCEDRIN MIGRAINE ORAL) Take 2 tablets by [...] mouth two times a day. 10 MG Cap Maker: Addendum Therapy (PT/OT/Speech/Resp) ID: [id number] 03/23/2024 1:37 PM Author: ENOC BYNUM Signed by ENOC BYNUM PT on 03/23/2024 at 1:37 PM * * * This document replaces document [id number] * * * Document text: Program_ID:[id number] Access Code: [email or web address] URL: [email or web address] Date: 03-23-2024 Prepared By: Enoc Bynum Program Notes Exercises - Seated Calf Stretch with Strap - 3 x daily - 7 x weekly - 1 sets - 3 reps - Seated Soleus Stretch with Strap - 3 x daily - 7 x weekly - 1 sets - 3 reps - Ankle Inversion Eversion Towel Slide - 1 x daily - 7 x weekly - 3 sets - 20 reps - Towel Scrunches - 1 x daily - 7 x weekly - 3 sets - 10 reps - Seated Ankle Alphabet - 3 x daily - 7 x weekly - 1 sets - 1 reps Normal [facility] THERAPY NTon 03-23-2024 THERAPY NT HNO ID: [id number] Author: ENOC BYNUM PT Service: ? Author Type: Physical Therapist Type: Therapy (PT/OT/Speech/Resp) Filed: 03/23/2024 13:37 Note Text: Program_ID:[id number] Access Code: [email or web address] URL: [email or web address] Date: 03-23-2024 Prepared By: Enoc Bynum Program Notes Exercises - Seated Calf Stretch with Strap - 3 x daily - 7 x weekly - 1 sets - 3 reps - Seated Soleus Stretch with Strap - 3 x daily - 7 x weekly - 1 sets - 3 reps - Ankle Inversion Eversion Towel Slide - 1 x daily - 7 x weekly - 3 sets - 20 reps - Towel Scrunches - 1 x daily - 7 x weekly - 3 sets - 10 reps - Seated Ankle Alphabet - 3 x daily - 7 x weekly - 1 sets - 1 reps Normal [facility] CNOVon 03-15-2024 CNOV Office Visit (SUSAN ) -------- ASTON NAPOLES ([id number]) 1975 M Date Time Provider Department 03/15/24 8:00 AM CARMEN ROJAS During your visit today, we recorded the following information about you: Carmen Rojas MD 03/15/2024 8:42 AM Signed Aston Napoles Surgery Date: L achilles tendonitis Surgery: 02/01/2024 Interval History: He is now 2 months since surgery. They report minimal pain. Noticed some drainage yesterday - small yellow spot on his sock. No pain, no fevers, no chills. ASSESSMENT/PLAN: 1. Achilles tendinitis of left lower extremity - ICD9: 726.71, ICD10: M76.62 - Will start Keflex, discussed concerning symptoms - CONSULT TO PHYSICAL THERAPY - wean boot - follow up in 6 weeks. Physical Exam: Well appearing male in no acute distress; Alert and oriented. Left Leg: Incision is clean dry and intact. There is no erythema warmth or drainage. Scab present He has palpable pulses, sensation is intact. He is able to flex and extend their toes and ankles without difficulty Radiographs: No imaging was performed today. Medication, History, and Allergies were reviewed and updated in the medical record. Carmen Rojas MD Allergies As of Date: 03/15/2024 Noted Allergy Reaction COMPAZINE (PROCHLORPERAZINE EDISY*06/03/2017 14 - Other: See Comments Comments: Jittery feeling Date Reviewed: 03/15/2024 Reviewed by: Oswald Alexis MA - Fully Assessed Reason for Visit: Post Op [174] Primary Visit Diagnosis:Achilles tendinitis of left lower extremity [M76.62] Order(s):cephALEXin (KEFLEX) 500 mg capsuleTake 1 capsule by mouth four times daily for 7 days.Disp: 28 capsuleRfl: 0 CONSULT TO PHYSICAL THERAPY [9032] Order #: [id number]: 1 FUTURE Prescriptions as of 03/15/2024 - cephALEXin (KEFLEX) 500 mg capsule Take 1 capsule by mouth four times daily for 7 days. - Cholecalciferol, Vitamin D3, (VITAMIN D) 25 mcg (1,000 unit) cap Take 1,000 Units by mouth once daily. - aspirin 325 mg tablet Take 1 tablet by mouth two times a day. - triamcinolone acetonide (KENALOG) 0.1 % cream Apply 1 application to affected area two times a day. - clotrimazole-betamethaso ne (LOTRISONE) cream Apply to affected area two times a day as needed. - fluticasone (FLONASE) 50 mcg/actuation nasal spray Use 2 Sprays in each nostril once daily. Rinse mouth after use. - aspirin/acetaminophen/ca ffeine (EXCEDRIN MIGRAINE ORAL) Take 2 tablets by [...] 10 MG Problem List As Of Date 03/15/2024 Noted Resolved Anxiety and depression [F41.9, F32.A] [...] Achilles tendinitis of left lower extremity [M7*12/19/2023 History of seizures [Z87.898] 01/20/2024 Prescriptions ordered this encounter Disp Refills Start End CEPHALEXIN 500 MG CAPSULE 28 c* 0 03/15/2024 03/22/2024 Route: ORAL Sig: Take 1 capsule by mouth four times daily for 7 days. Level of Service: POSTOP FOLLOW UP VISIT RELATED TO ORIGINAL PX [52438] Disposition: Return in about 6 weeks (around 04/26/2024). Follow-up and Disposition History for Encounter Date Provider Department Center 03/15/2024 [id number]-LKYBPRODELIA ROJAS [facility] Indp Letter Text Encounter Status:Closed by CARMEN ROJAS on 03/15/24 [facility] CNCOon 03-01-2024 CNCO Letter Text [facility] CNOVon 02-29-2024 CNOV Office Visit (UROLMD ) -------- ASTON NAPOLES ([id number]) 1975 M Date Time Provider Department 02/29/24 8:30 AM SEBASTIEN PETTY During your visit today, we recorded the following information about you: Pulse Respiration Blood pressure Weight 78/minute 16/minute 147/93 99.3 kg Height 1.702 m Sebastien Petty MD 02/29/2024 9:40 AM Signed [facility] UROLOGY PROCEDURE NOTE UROL [facility] CYSTOSCOPY PROCEDURE NOTE: Aston Napoles is a 49 year old male who presents for a cystoscopy. Indication: Bladder wall thickening, urgency Pt ID verified with patient: Yes Procedure verified with patient: Yes Procedure confirmed with physician and applications support specialist: Yes UNIVERSAL PROTOCOL / SAFETY CHECKLIST Procedure to be Performed: Cystoscopy Sign In: A Moment of CARE was completed. Personnel directly involved with the procedure wore the appropriate PPE (Personal Protective Equipment). Patient/Surrogate Stated/Verified: PATIENT VERIFIED(optional for EMERGENT procedures): Patient name, Date of , Relevant allergies, and The intended procedure Time Out Communication: Intended patient and procedure match the source documents. Consent documented and matches the intended procedure. Sign Out: SIGN OUT (optional for EMERGENT procedures): No specimen collected. Sebastien Petty MD Physician: Sebastien Petty MD A urinalysis was performed revealing no evidence of infection. The benefits, risks, alternatives of the cystoscopy procedure and personnel were discussed with the patient. The verbal consent was obtained and the patient agrees to proceed. Procedure: The patient was placed on the procedure table in the supine position and prepped and draped in the usual sterile fashion. 2% Lidocaine Jelly was placed per urethra as an anesthetic in the standard fashion. Once adequate local anesthesia was achieved, the tip of the flexible cystoscope was carefully placed into the urethra under direct visual guidance. The scope was negotiated through the pendulous urethra to the level of the bulbar urethra with no evidence of stricture. The verumontanum came into view and the scope was negotiated through the prostatic urethra which showed evidence of a patent prostatic urethra. The bladder was entered and careful koenig endoscopy was carried out. The posterior, superior and lateral lugo and dome of the bladder were all well visualized and the scope was retroflexed upon itself. The findings were consistent with no evidence of bladder mucosal pathology. FINDINGS Urethra: Normal Sphincter: Normal / Coapted Prostate: Normal Lateral Lobes / Normal Median Lobe Bladder Neck: Patent Urothelium: normal appearing, no evidence of tumor, no erythema, no foreign body Trabeculation: No Inflammation: No Diverticulum: No Ureteral Orifices: normal appearing, orthotopic position, clear efflux bilaterally Trigone: normal appearing At the conclusion of the procedure, the flexible cystoscope was removed atraumatically. The patient tolerated the procedure without complications. Patient was given standard post-procedure instructions, and was directed to increase oral fluid intake as directed. Complications: None Estimated Blood Loss: None Preoperative diagnosis: Bladder wall thickening Postoperative diagnosis: Same ASSESSMENT/PLAN: Normal cystoscopy TRUS PROCEDURE: The patient was placed in the lateral decubitus position. Digital rectal exam was normal. The ultrasound probe was placed into the rectum and the prostate visualized. The prostate was visualized in sagittal and transverse planes and no hypoechoic lesion identified. The total prostate volume was 18 gm Complications: None Estimated Blood Loss: None Preoperative diagnosis: Bladder wall thickening Postoperative diagnosis: Same Disposition / Plan: - I discussed the potential etiologies of his urinary symptoms which sound most consistent with possible bladder spasms and voluntary urine retention - I recommended patient avoid holding his urine for long periods of time - He was in agreement - Keep follow up in 3 months with Taurus Foster APRN.CERTIFIED CAREGIVER.GILBERTO Petty MD, MS Associate Staff [facility] Timothy Lopes MA 02/29/2024 9:20 AM Signed CYSTOSCOPY PROCEDURE History and physical exam within the last 30 days: yes. Exam notes reviewed: yes Informed consent obtained Yes. Discussed procedure, risks, and options with patient. Patient agrees to proceed. Anesthetics given: 10 cc 2% Lidocaine-Urethral and Administered by nurse - see Pre-Procedure Nurse's Notes. Operative Findings Urethra: Normal Prostate: Normal Bladder: no stones, no tumors, no lesions Radiologic Studies Urogram: 1. No hydronephrosis or renal calcul (more content not included)... Normal [facility] UA DIP, URINE (POC)on 2023 BILIRUBIN UA (POCT) Negative Negative [facility] CLARITY UA (POCT) Clear [facility] COLOR UA (POCT) Yellow [facility] GLUCOSE UA (POCT) Negative Negative mg/dL [facility] Hemoglobin Ql (U) Negative Negative [facility] KETONE UA (POCT) Negative Negative mg/dL [facility] LEUKOCYTES UA (POCT) Negative Negative [facility] NITRITE UA (POCT) Negative Negative [facility] PH UA (POCT) 5.5 4.5 - 8.0 [facility] Protein Ql (U) Negative Negative mg/dL [facility] SPECIFIC GRAVITY UA (POCT) 1.025 1.005 - 1.030 [facility] UROBILINOGEN UA (POCT) 0.2 Normal E.U./dL [facility] Location:[facility], [address] [place], [address] [facility] POINT OF CARE [facility] US Prostate transrectalon [facility] Radiology Study observation (narrative) [facility] CNOVon 02-27-2024 CNOV Office Visit (OTFGFL ) -------- ASTON NAPOLES ([id number]) 1975 M Date Time Provider Department 02/27/24 9:30 AM LATISHA BIRMNIGHAM OTFGFL During your visit today, we recorded the following information about you: Pulse Respiration Blood pressure Weight 102/minute 18/minute 152/109 96.2 kg Height 1.723 m Latisha Birmingham PA-C 02/27/2024 10:14 AM Signed HPI: Aston Napoles is a 49 year old male who returns to the office for followup for ear complaints. His acute left ear pain resolved after first visit, having taken prednisone, however the ear still feels chronically clogged. Had used flonase and insufflation techniques as advised w/o any improvement of clogged sensation. Bilateral ears not feeling as itchy. Continues to deny any dizziness or ringing. Scheduled to see derm for general psoriasis. Presents today reporting I reviewed the allergies, medications, problem list, PMH/PSH, FmHx and SocHx as documented per EMR. Physical Exam BP 152/109 Pulse 102 Resp 18 Ht 172.3 cm (5' 7.84) Wt 96.2 kg (212 lb) BMI 32.39 kg/m? General: Appears to be in no acute distress, normal affect Head/Face: Facial muscles appear to be functioning normally Eyes: Extraocular movements appear intact Ears: Right Ear: External ear is without lesions. Conchal bowl has mild dry flaky skin. EAC is without inflammatory changes, free of debris. Visualized TM is not inflamed and with normal landmarks, not retracted or bulging. TM is mobile on pneumatic otoscopy. Left Ear: External ear is without lesions. Conchal bowl has mild dry flaky skin. EAC is without inflammatory changes, free of debris. Visualized TM is not inflamed and with normal landmarks, not retracted or bulging. TM is mobile on pneumatic otoscopy. Nose: External nose is without lesions or deformity Data MRI 02/20 negative Assessment AND Plan I counseled the patient about the differential diagnosis, natural course, treatment options and answered their questions regarding the Diagnoses and all orders for this visit: Asymmetrical sensorineural hearing loss Ear pressure, left Dysfunction of left eustachian tube - CONSULT TO ENT; Future Prior audio revealed left-sided upper frequency asymmetric hearing loss, patient complaining of chronic blocked left ear. MRI was ordered and was negative 02/21/2024. Patient did use Flonase, auto insufflation techniques as advised reports no improvement in his clogged/blocked sensation in his ear. Discussed the possibility he may feel this is a clogged ear however it may just be due to the upper freq sensorineural hearing loss. I advised we have no further treatment to offer in this office, as his exam and tympanometry does not suggest severe negative pressure or fluid, that would warrant ear tube placement. He is advised he may seek consultation by a provider who performs balloon eustachian tube dilation, referral placed with providers noted. He was advised to continue treatment instructions for intermittent eustachian tube dysfunction, advised to consider a hearing aid otherwise. Chronic eczematous otitis externa of both ears Advised to continue steroid topical cream as directed at prior visit. Latisha Birmingham PA-C Time: 25 minutes: Time includes preparation, obtaining/reviewing history, exam, interpreting results, ordering, counseling/education, referring/communicating and documentation. -Created using voice recognition software, some errors may have occurred. Corrections may be performed at a later date Latisha Birmingham PA-C 02/27/2024 9:56 AM Addendum -Call to schedule for consult for potential eustachian tube dilation procedure -Ask to schedule with one of the following [facility] ENT providers for consult: Dr. Valerie Garcia Allergies As of Date: 02/27/2024 Noted Allergy Reaction COMPAZINE (PROCHLORPERAZINE EDISY*06/03/2017 14 - Other: See Comments Comments: Jittery feeling Date Reviewed: 02/27/2024 Reviewed by: Stephen Kimbrough MA - Fully Assessed Reason for Visit: Follow Up [171] Cmt: Follow up; pt stated that ears are still bothering him more than the right. Visit Diagnoses:Ear pressure, left [H93.8X2] Asymmetrical sensorineural hearing loss [H90.3] Chronic eczematous otitis externa of both ears [H60.8X3] Dysfunction of left eustachian tube [H69.92] Order(s):CONSULT TO ENT [7189] Order #: [id number]: 1 FUTURE Prescriptions as of 02/27/2024 - Cholecalciferol, Vitamin D3, (VITAMIN D) 25 mcg (1,000 unit) cap Take 1,000 Units by mouth once daily. - aspirin 325 mg tablet Take 1 tablet by mouth two times a day. - triamcinolone acetonide (KENALOG) 0.1 % cream Apply 1 application to affected area two times a day. - clotrimazole-betamethaso ne (LOTRISONE) cream Apply to affected area two times a day as needed. - fluticasone (ROCIO (more content not included)... Normal [facility] CNNURSEon 02-23-2024 CNNURSE Nurse Visit (ORTHIN) -------- ASTON NAPOLES ([id number]) 1975 M Date Time Provider Department 02/23/24 2:00 PM PATO LUCAS During your visit today, we recorded the following information about you: Pato Lucas RN 02/24/2024 10:16 AM Signed ORTH CARE COORDINATION POST OPERATIVE NURSE VISIT Patient has been identified by name and date of : Yes, Patient is accompanied by: Surgery: Left Achilles tendon secondary repair (CPT 69702) Left calcaneal Exostectomy (CPT 71449) Left Achilles tendon debridement (CPT 78561) Date of Surgery: 02/01/2024 Activity? WBAT in boot Incision? clean, dry, sutures removed Follow up Appointment? 3 weeks Patient aware of goals, to return to ADL's, yes. Any barriers to achieving goal? No PAIN EVALUATION 02/24/2024 1015 Pain Level: 2 Pain Location: Ankle-Left Description: Aching Duration Amount of Time: 3 Duration Units: Weeks Frequency: Continuous Intervention/Comfort measure: Reposition;Medication Medication Update: Yes: Pt doing well today. Pt toes warm and wiggle, taking ASA 325mg bid. Pt sutures removed, discussed dressing changes and signs of infection. Written and verbal instructions given along with supplies to patient and spouse. Discussed WBAT in boot and removal of heel inserts . Pt will continue to elevate for pain and swelling and follow up in 3 weeks. Pato Lucas RN He will be Non Weight Bearing for 6 weeks. Week 1 post-op: Splint off, XRs, incision check, placement into short-leg cast Week 3 post-op: Cast off, sutures out, placement into tall boot with two heel lifts (Styrofoam). Start WBAT. Wean lifts once fully WB. Week 6 post op: Wean boot, start PT. Pato Lucas RN 02/23/2024 2:11 PM Signed He will be Non Weight Bearing for 6 weeks. Week 1 post-op: Splint off, XRs, incision check, placement into short-leg cast Week 3 post-op: Cast off, sutures out, placement into tall boot with two heel lifts (Styrofoam). Start WBAT. Wean lifts once fully WB. Week 6 post op: Wean boot, start PT. continue to elevate with foot above heart level for pain and swelling continue taking asprin 325mg twice daily to prevent blood clots follow up in 3 weeks change dressing daily for 1 week then ok to leave open to air as long as covered with sock and not rubbing against boot. Call or mychart if any signs of infection redness, swelling, drainage, fever [phone] WBAT weight bearing as tolerated means you can walk on boot as you tolerate. You can start off giving half weight to crutches/walker then half weight to boot for few days to week, then start just walking with boot in small area and increase from there. Doing this it is normal to have some increased swelling or pain. If bothersome you can go back to using crutches/ walker as needed. Also getting compression stocking can help with swelling. You can remove the heel lifts in boot as you become comfortable being WBAT , there are 2 in boot so you can remove 1 at a time. Ok to shower after 1-2 days of suture removal. No submerging water in pool, bath tub, hot tub etc. No lotions or ointments on incision. Let water run over in shower and pat dry after to replace dressing. Allergies As of Date: 02/23/2024 Noted Allergy Reaction COMPAZINE (PROCHLORPERAZINE EDISY*06/03/2017 14 - Other: See Comments Comments: Jittery feeling Date Reviewed: 02/23/2024 Reviewed by: Essie Begum, RT(R) - Fully Assessed Reason for Visit: Post Op [174] Primary Visit Diagnosis:Achilles tendinitis of left lower extremity [M76.62] Prescriptions as of 02/24/2024 - Cholecalciferol, Vitamin D3, (VITAMIN D) 25 mcg (1,000 unit) cap Take 1,000 Units by mouth once daily. - aspirin 325 mg tablet Take 1 tablet by mouth two times a day. - ondansetron (ZOFRAN) 4 mg tablet Take 1 tablet by mouth every 8 hours as needed for nausea/vomiting. - iv contrast (will be provided with [...] affected area two times a day. - ciprofloxacin-dexAMETHas one (CIPRODEX) 0.3-0.1 % otic suspension Use 4 Drops in the ears two times a day. 4 drops to affected ear twice daily for 7-10 days. - clotrimazole-betamethaso ne (LOTRISONE) cream Apply to affected area two times a day as needed. - fluticasone (FLONASE) 50 mcg/actuation nasal spray Use 2 Sprays in each nostril once daily. Rins (more content not included)... Normal [facility] CT UROGRAM WO/W IVCONon 11- CT UROGRAM WO/W IVCON * * *Final Report* * * DATE OF EXAM: Feb 23 2024 10:42AM [facility] 0560 - CT UROGRAM WO/W IVCON / PROCEDURE REASON: Bladder wall thickening * * * * Physician Interpretation * * * * EXAMINATION: CT ABDOMEN AND PELVIS WITHOUT AND WITH IV CONTRAST, INCLUDING EXCRETORY PHASE IMAGING (CT UROGRAM) 3D RECONSTRUCTIONS CLINICAL HISTORY: Abdominal pain and urinary leakage. History of bladder wall thickening. TECHNIQUE: CT urogram protocol including unenhanced, renal parenchymal phase and excretory phase renal imaging was obtained following IV contrast. Normal saline was also administered IV. No oral contrast was given. 3D image post-processing was performed and archived at the request of the referring physician, on the CT scanner workstation without concurrent physician supervision. MQ: CTU_2 Contrast: IV: 150 ml of Omnipaque 350 IV Saline: 50 ml of 0.9% NACL Solution Oral Contrast: None CT Radiation dose: Integrated dose-length product (DLP) for this visit = 2222 mGy*cm. CT Dose Reduction Employed: Automated exposure control(AEC) and iterative recon COMPARISON: CT abdomen and pelvis 01/29/2023. RESULT: Kidneys and urinary tract: Right: There are no renal calculi or masses. The opacified calices, renal pelvis and ureter are normal without dilation, filling defect, or stricture. Left: There are no renal calculi or masses. The opacified calices, renal pelvis and ureter are normal without dilation, filling defect, or stricture. Bladder: No filling defect, calculus, focal or diffuse wall thickening. Abdomen and Pelvis: Liver: No mass. Diffuse fatty infiltration. Biliary: No bile duct dilation. Gallbladder is unremarkable. Spleen: No mass. No splenomegaly. Pancreas: No mass or duct dilation. Adrenals: No mass. GI tract: No dilation or wall thickening. Diverticula in the colon without evidence of acute diverticulitis. Lymph nodes: No abdominal or pelvic lymphadenopathy. Mesentery/Peritoneum: No ascites or mass. Retroperitoneum: No mass. Vasculature: - Abdominal aorta and iliac arteries: No aneurysm. - Celiac and SMA: Patent without stenosis. - Portal venous system (SMV, splenic vein, portal vein and branches): Patent. - Hepatic veins: Patent. Pelvis: No mass, ascites or fluid collection. Bones and Soft Tissues: Degenerative changes. Lower thorax: No pleural effusion or consolidation Localizer images: No additional findings. IMPRESSION: 1. No hydronephrosis or renal calculi 2. Resolution of previously described bladder wall thickening 3. Fatty infiltration of the liver Animal Care Technician: ADIA Transcribe Date/Time: Feb 28 2024 2:14P Dictated by : SELENE MAI MD This examination was interpreted and the report reviewed and electronically signed by: SELENE MAI MD on Feb 28 2024 2:25PM EST [id number] Normal [facility] MR Brain WO and W contrast I Von 02-21-2024 IMPRESSION: * Grossly unremarkable appearance of the bilateral cerebellopontine angle cisterns and inner ear structures. No abnormal enhancement on post infusion images. No discrete mass lesion. * Consider further imaging with dedicated CT temporal bones without IV contrast for detailed evaluation of the external auditory canal, middle ear cavity, and ossicles in this patient with recurrent ear infection if clinically deemed appropriate. Animal Care Technician: ADIA Transcribe Date/Time: Feb 21 2024 12:01P Dictated by : AMADO MÁRQUEZ MD This examination was interpreted and the report reviewed and electronically signed by: AMADO MÁRQUEZ MD on Feb 21 2024 12:43PM [facility] DIVISION OF RADIOLOGY * * *Final Report* * * DATE OF EXAM: Feb 21 2024 10:06AM [facility] 0295 - MRI BRAIN WO/W IVCON / PROCEDURE REASON: Sensorineural hearing loss (SNHL) of left ear with unrestricted hearing of right * * * * Physician Interpretation * * * * EXAMINATION: MRI BRAIN WO/W IVCON CLINICAL HISTORY: A 49-year-old male with recurrent left ear infections and pressure feeling. Left-sided eade-vz-abytowsp sensorineural hearing loss. The visualized the TECHNIQUE: Whole brain axial FLAIR and diffusion-weighted images, high-resolution coronal and axial T1, fat-suppressed axial fast T2, and high-resolution, fat-suppressed, gadolinium enhanced axial VIBE of the skull base, and whole brain postcontrast T1-weighted images. Contrast: 19 mL Dotarem IV COMPARISON: None. RESULT: Postop Changes: None. Acute Change: There is no evidence of restricted diffusion to suggest an acute infarct. Brain Parenchyma: The visualized parenchyma is within normal limits of signal intensity and morphology. No abnormal parenchymal or leptomeningeal enhancement is noted following gadolinium administration. Orbits: There is no evidence of an orbital mass. The globes, optic nerves, lacrimal glands, and extraocular muscles are within normal limits. Paranasal Sinuses: The paranasal sinuses, mastoid air cells and middle ear cavities are clear. Sella: The pituitary gland is within normal limits. No suprasellar mass. Partially sella, a nonspecific imaging finding. The hypothalamus and optic apparatus are normal in appearance. Vasculature: The cavernous sinuses enhance symmetrically. The major arterial and venous flow voids are maintained. Elongated tortuous course of the partially included upper cervical internal carotid arteries, vertebral arteries, and basilar artery. Vascular indentations along the ventral aspect of the medulla and left ching cerebri without parenchymal signal abnormality. Skull Base: The cisternal segments of the cranial nerves are normal in morphology, no mass or abnormal enhancement. No evidence of a marrow replacement process. Asymmetric prominence of the inferior/lateral cerebellopontine angle cistern (such as 7/68) along the anterior surface of the right cerebral hemisphere likely secondary to an arachnoid cyst.. Extracranial soft tissues: The soft tissue planes of the visualized pharynx and the car usher, parapharyngeal, carotid, retropharyngeal, and prevertebral spaces are maintained. The visualized parotid glands are normal in appearance. DIVISION OF RADIOLOGY Provider, [facility] - 02/21/2024 * * *Final Report* * * DATE OF EXAM: Feb 21 2024 10:06AM [facility] 0295 - MRI BRAIN WO/W IVCON / PROCEDURE REASON: Sensorineural hearing loss (SNHL) of left ear with unrestricted hearing of right * * * * Physician Interpretation * * * * EXAMINATION: MRI BRAIN WO/W IVCON CLINICAL HISTORY: A 49-year-old male with recurrent left ear infections and pressure feeling. Left-sided [id number]-[id number] sensorineural hearing loss. The visualized the TECHNIQUE: Whole brain axial FLAIR and diffusion-weighted images, high-resolution coronal and axial T1, fat-suppressed axial fast T2, and high-resolution, fat-suppressed, gadolinium enhanced axial VIBE of the skull base, and whole brain postcontrast T1-weighted images. Contrast: 19 mL Dotarem IV COMPARISON: None. RESULT: Postop Changes: None. Acute Change: There is no evidence of restricted diffusion to suggest an acute infarct. Brain Parenchyma: The visualized parenchyma is within normal limits of signal intensity and morphology. No abnormal parenchymal or leptomeningeal enhancement is noted following gadolinium administration. Orbits: There is no evidence of an orbital mass. The globes, optic nerves, lacrimal glands, and extraocular muscles are within normal limits. Paranasal Sinuses: The paranasal sinuses, mastoid air cells and middle ear cavities are clear. Sella: The pituitary gland is within normal limits. No suprasellar mass. Partially sella, a nonspecific imaging finding. The hypothalamus and optic apparatus are normal in appearance. Vasculature: The cavernous sinuses enhance symmetrically. The major arterial and venous flow voids are maintained. Elongated tortuous course of the partially included upper cervical internal carotid arteries, vertebral arteries, and basilar artery. Vascular indentations along the ventral aspect of the medulla and left ching cerebri without parenchymal signal abnormality. Skull Base: The cisternal segments of the cranial nerves are normal in morphology, no mass or abnormal enhancement. No evidence of a marrow replacement process. Asymmetric prominence of the inferior/lateral cerebellopontine angle cistern (such as 7/68) along the anterior surface of the right cerebral hemisphere likely secondary to an arachnoid cyst.. Extracranial soft tissues: The soft tissue planes of the visualized pharynx and the car usher, parapharyngeal, carotid, retropharyngeal, and prevertebral spaces are maintained. The visualized parotid glands are normal in appearance. IMPRESSION IMPRESSION: * Grossly unremarkable appearance of the bilateral cerebellopontine angle cisterns and inner ear structures. No abnormal enhancement on post infusion images. No discrete mass lesion. * Consider further imaging with dedicated CT temporal bones without IV contrast for detailed evaluation of the external auditory canal, middle ear cavity, and ossicles in this patient with recurrent ear infection if clinically deemed appropriate. Animal Care Technician: PSCB Transcribe Date/Time: Feb 21 2024 12:01P Dictated by : AMADO MÁRQUEZ MD This examination was interpreted and the report reviewed and electronically signed by: AMADO MÁRQUEZ MD on Feb 21 2024 12:43PM EST [facility] Radiology Study observation (narrative) [facility] MR Brain WO and W contrast I VOrdered By: Ccf Provider on 02-21-2024 [facility] MRI BRAIN WO/W IVCONon 02-20 MRI BRAIN WO/W IVCON * * *Final Report* * * DATE OF EXAM: Feb 21 2024 10:06AM DEBO 0295 - MRI BRAIN WO/W IVCON / PROCEDURE REASON: Sensorineural hearing loss (SNHL) of left ear with unrestricted hearing of right * * * * Physician Interpretation * * * * EXAMINATION: MRI BRAIN WO/W IVCON CLINICAL HISTORY: A 49-year-old male with recurrent left ear infections and pressure feeling. Left-sided [id number] sensorineural hearing loss. The visualized the TECHNIQUE: Whole brain axial FLAIR and diffusion-weighted images, high-resolution coronal and axial T1, fat-suppressed axial fast T2, and high-resolution, fat-suppressed, gadolinium enhanced axial VIBE of the skull base, and whole brain postcontrast T1-weighted images. Contrast: 19 mL Dotarem IV COMPARISON: None. RESULT: Postop Changes: None. Acute Change: There is no evidence of restricted diffusion to suggest an acute infarct. Brain Parenchyma: The visualized parenchyma is within normal limits of signal intensity and morphology. No abnormal parenchymal or leptomeningeal enhancement is noted following gadolinium administration. Orbits: There is no evidence of an orbital mass. The globes, optic nerves, lacrimal glands, and extraocular muscles are within normal limits. Paranasal Sinuses: The paranasal sinuses, mastoid air cells and middle ear cavities are clear. Sella: The pituitary gland is within normal limits. No suprasellar mass. Partially sella, a nonspecific imaging finding. The hypothalamus and optic apparatus are normal in appearance. Vasculature: The cavernous sinuses enhance symmetrically. The major arterial and venous flow voids are maintained. Elongated tortuous course of the partially included upper cervical internal carotid arteries, vertebral arteries, and basilar artery. Vascular indentations along the ventral aspect of the medulla and left ching cerebri without parenchymal signal abnormality. Skull Base: The cisternal segments of the cranial nerves are normal in morphology, no mass or abnormal enhancement. No evidence of a marrow replacement process. Asymmetric prominence of the inferior/lateral cerebellopontine angle cistern (such as 7/68) along the anterior surface of the right cerebral hemisphere likely secondary to an arachnoid cyst.. Extracranial soft tissues: The soft tissue planes of the visualized pharynx and the car usher, parapharyngeal, carotid, retropharyngeal, and prevertebral spaces are maintained. The visualized parotid glands are normal in appearance. IMPRESSION: * Grossly unremarkable appearance of the bilateral cerebellopontine angle cisterns and inner ear structures. No abnormal enhancement on post infusion images. No discrete mass lesion. * Consider further imaging with dedicated CT temporal bones without IV contrast for detailed evaluation of the external auditory canal, middle ear cavity, and ossicles in this patient with recurrent ear infection if clinically deemed appropriate. Animal Care Technician: ADIA Transcribe Date/Time: Feb 21 2024 12:01P Dictated by : AMADO MÁRQUEZ MD This examination was interpreted and the report reviewed and electronically signed by: AMADO MÁRQUEZ MD on Feb 21 2024 12:43PM EST [id number] Normal [facility] Splint Applicationon 024 Diana Griffith MA 02/09/2024 2:43 PM SPLINT APPLICATION Date/Time: 02/09/2024 2:43 PM Performed by: Diana Griffith MA Authorized by: Carmen Rojas MD Procedure details: Location: Left ankle Cast/Brace type: Short leg cast non wt bearing Post-procedure: The splinted body part was neurovascularly unchanged following the procedure Tolerance: Patient tolerated the procedure well with no immediate complications [facility] XR Ankle - left AP and Later al and obliqueon 02-09-2024 IMPRESSION: Expected postsurgical changes. Animal Care Technician: [facility] Transcribe Date/Time: Feb 09 2024 1:47P Dictated by : THANH CHEUNG MD This examination was interpreted and the report reviewed and electronically signed by: NEGRITA OLIVA MD on Feb 09 2024 1:58PM EST DIVISION OF RADIOLOGY * * *Final Report* * * DATE OF EXAM: Feb 09 2024 1:34PM CCX 5298 - XR ANKLE 3V AP/LAT/OBL LT / PROCEDURE REASON: Achilles tendinitis of left lower extremity * * * * Physician Interpretation * * * * EXAMINATION / TECHNIQUE: XR ANKLE 3V AP/LAT/OBL LT PATIENT/TECHNOLOGIST PROVIDED HISTORY: Post OP CLINICAL INFORMATION ( PROVIDED BY ORDERING CLINICIAN) : Achilles tendinitis of left lower extremity COMPARISON: MRI left ankle 11/10/2023, left foot radiographs 10/10/2023 RESULT: Status post left calcaneal exostectomy and tendon repair. Mild postoperative soft tissue gas in the mid/distal lower leg. No acute fracture or dislocation. Joint spaces are maintained. [facility] * * *Final Report* * * DATE OF EXAM: Feb 09 2024 1:34PM CCX 5298 - XR ANKLE 3V AP/LAT/OBL LT / PROCEDURE REASON: Achilles tendinitis of left lower extremity * * * * Physician Interpretation * * * * EXAMINATION / TECHNIQUE: XR ANKLE 3V AP/LAT/OBL LT PATIENT/TECHNOLOGIST PROVIDED HISTORY: Post OP CLINICAL INFORMATION ( PROVIDED BY ORDERING CLINICIAN) : Achilles tendinitis of left lower extremity COMPARISON: MRI left ankle 11/10/2023, left foot radiographs 10/10/2023 RESULT: Status post left calcaneal exostectomy and tendon repair. Mild postoperative soft tissue gas in the mid/distal lower leg. No acute fracture or dislocation. Joint spaces are maintained. IMPRESSION IMPRESSION: Expected postsurgical changes. Animal Care Technician: ADIA Transcribe Date/Time: Feb 09 2024 1:47P Dictated by : THANH CHEUNG MD This examination was interpreted and the report reviewed and electronically signed by: NEGRITA OLIVA MD on Feb 09 2024 1:58PM EST [facility] Radiology Study observation (narrative) [facility] XR Ankle - left AP and Later al and obliqueOrdered By: Ccf Provider on 02-09-2024 [facility] Abdomen/Pelvis W IV Cont ONL Yon 02-07-2024 Abdomen/Pelvis W IV Cont ONLY [facility] Imaging Services [address] [place] [address] [id number] Abdomen/Pelvis W IV Cont ONLY MR#: [id number] Acct: [id number] Name: ASTON NAPOLES Rep #: [id number] : 1975 M 48 From: Enoc Naidu MD PCP: Dr. Francisco Javier Osorio MD Status: REG ER Study: Abdomen/Pelvis W IV Cont ONLY Date of Exam: Exam# [id number] Ordering Dr: Ayden Choudhury DO [id number] EXAM: CT ABDOMEN AND PELVIS WITH INTRAVENOUS CONTRAST CLINICAL INDICATION: constipation, n/v TECHNIQUE: Helically acquired images were obtained of the abdomen and pelvis with intravenous contrast. This CT exam was performed using one or more of the following dose reduction techniques: automated exposure control, adjustment of the mA and/or kV according to patient size, and/or use of iterative reconstruction technique. CONTRAST: IV 100mL [id number] RADIATION DOSE: CTDIvol = 18.22 mGy, DLP = 1217.99 mGy-cm COMPARISON: CT abdomen and pelvis 01/29/2023 FINDINGS: LOWER THORAX: Bibasilar dependent atelectasis. No cardiomegaly. No significant pericardial effusion. ABDOMEN: LIVER: Hepatomegaly with fatty infiltration of the liver. GALLBLADDER AND BILE DUCTS: Unremarkable. No calcified gallstones. No gallbladder distention or wall edema. No intra- or extrahepatic biliary ductal dilation. PANCREAS: Unremarkable. No focal cystic or solid mass. SPLEEN: Unremarkable. Normal size without focal cystic or solid mass. ADRENALS: Unremarkable. No nodules. KIDNEYS AND URETERS: Unremarkable. Normal renal size and position. No hydronephrosis. STOMACH AND BOWEL: Diverticular disease of the colon but no diverticulitis. No stomach or bowel distention. PELVIS: APPENDIX: No evidence of acute appendicitis. BLADDER: Mild diffuse wall thickening of the bladder with minimal adjacent stranding. REPRODUCTIVE: Unremarkable as visualized. No mass. ABDOMEN and PELVIS: INTRAPERITONEAL SPACE: Unremarkable. No ascites or other fluid collection. No free air. BONES/JOINTS: Unremarkable. No suspicious lytic or blastic abnormality. SOFT TISSUES: Unremarkable. No discrete abdominal or pelvic wall hernia. VASCULATURE: Unremarkable. Abdominal aorta is non-dilated. LYMPH NODES: Unremarkable. No enlarged lymph nodes. CT/Abdomen/Pelvis W IV Cont ONLY IMPRESSION: 1. Mild diffuse wall thickening of the bladder with minimal adjacent stranding. Findings may indicate cystitis. 2. Hepatomegaly with fatty infiltration of the liver. Electronically Signed: Enoc Naidu MD at 6:22 EDT , CC: Dr. Ayden Choudhury DO; Dr. Francisco Javier Osorio MD Animal Care Technician: Signed Normal [facility] CBC W/Diff, Automatedon 10-2 Absolute Lymph 1.22 X10 3/uL Normal 0.83-4.51 [facility] Comment on above: Performed By: #### L 100.0100, L500.4050, L501.2450 #### [facility] [address] [place], [address] Absolute Neut 7.7 X10 3/uL Normal 2.0-7.7 [facility] Comment on above: Performed By: #### L 100.0100, L500.4050, L501.2450 #### [facility] [address] [place], [address] Basophils/100 WBC (Bld) 0.3 % Normal 0-1 [facility] Comment on above: Performed By: #### L 100.0100, L500.4050, L501.2450 #### [facility] [address] [place], [address] Eosinophils/100 WBC (Bld) 0.3 % Normal 0-5 [facility] Comment on above: Performed By: #### L 100.0100, L500.4050, L501.2450 #### [facility] [address] [place], [address] Erythrocyte distribution width (RBC) [Ratio] 12.5 % Normal 11.6-14.6 [facility] Comment on above: Performed By: #### L 100.0100, L500.4050, L501.2450 #### [facility] [address] [place], [address] Hematocrit (Bld) [Volume fraction] 45.1 % Normal 40-54 [facility] Comment on above: Performed By: #### L 100.0100, L500.4050, L501.2450 #### [facility] [address] [place], [address] Hemoglobin (Bld) [Mass/Vol] 15.4 g/dL Normal 13.0-16.5 [facility] Comment on above: Performed By: #### L 100.0100, L500.4050, L501.2450 #### [facility] [address] [place], [address] IG% 0.500 Normal 0.0-0.9 [facility] Comment on above: Result Comment: IG% - Immature Granulocytes (promyelocytes, myelocytes and metamyelocytes) > 1% indicates that a LEFT SHIFT is Present. Performed By: #### L 100.0100, L500.4050, L501.2450 #### [facility] [address] [place], [address] Lymphocytes/100 WBC (Bld) 12.9 % Low 19-41 [facility] Comment on above: Performed By: #### L 100.0100, L500.4050, L501.2450 #### [facility] [address] [place], [address] MCH (RBC) [Entitic mass] 29.4 pg Normal 27.0-32.0 [facility] Comment on above: Performed By: #### L 100.0100, L500.4050, L501.2450 #### [facility] [address] [place], [address] MCHC (RBC) [Mass/Vol] 34.1 g/dL Normal 32-36 [facility] Comment on above: Performed By: #### L 100.0100, L500.4050, L501.2450 #### [facility] [address] [place], [address] MCV (RBC) [Entitic vol] 86.1 fL Normal 80-94 [facility] Comment on above: Performed By: #### L 100.0100, L500.4050, L501.2450 #### [facility] [address] [place], [address] Monocytes/100 WBC (Bld) 4.1 % Normal 0-10 [facility] Comment on above: Performed By: #### L 100.0100, L500.4050, L501.2450 #### [facility] [address] [place], [address] Neutrophils/100 WBC (Bld) 81.9 % High 47-70 [facility] Comment on above: Performed By: #### L 100.0100, L500.4050, L501.2450 #### [facility] [address] [place], [address] Nucleated RBC (Bld) [#/Vol] 0 10*3/uL Normal 0-5 [facility] Comment on above: Performed By: #### L 100.0100, L500.4050, L501.2450 #### [facility] [address] [place], [address] Platelet mean volume (Bld) [Entitic vol] 9.0 fL Normal 6.2-12.0 [facility] Comment on above: Performed By: #### L 100.0100, L500.4050, L501.2450 #### [facility] [address] [place], [address] Platelets (Bld) [#/Vol] 313 10*3/uL Normal 150-450 [facility] Comment on above: Performed By: #### L 100.0100, L500.4050, L501.2450 #### [facility] [address] [place], [address] RBC (Bld) [#/Vol] 5.24 10*6/uL Normal 4.6-6.2 [facility] Comment on above: Performed By: #### L 100.0100, L500.4050, L501.2450 #### [facility] [address] [place], [address] RDW SD 38.9 fl Normal 35.1-43.9 [facility] Comment on above: Performed By: #### L 100.0100, L500.4050, L501.2450 #### [facility] [address] [place], [address] WBC (Bld) [#/Vol] 9.5 10*3/uL Normal 4.4-11.0 [facility] Comment on above: Performed By: #### L 100.0100, L500.4050, L501.2450 #### [facility] [address] [place], [address] Comprehensive Metabolic Prof ilon 02-07-2024 Albumin [Mass/Vol] 3.3 g/dL Normal 3.2-5.0 [facility] Comment on above: Performed By: #### L 400.0001, M100.678 #### [facility] [address] [place], [address] Albumin/Globulin [Mass ratio] 0.7 {ratio} Low 0.9-2.4 [facility] Comment on above: Performed By: #### L 400.0001, M100.678 #### [facility] [address] [place], [address] ALK P 70 U/L Normal 45-117 [facility] Comment on above: Performed By: #### L 400.0001, M100.678 #### [facility] [address] [place], [address] ALT [Catalytic activity/Vol] 38 U/L Normal 16-61 [facility] Comment on above: Performed By: #### L 400.0001, M100.678 #### [facility] [address] [place], [address] AST [Catalytic activity/Vol] 14 U/L Low 15-37 [facility] Comment on above: Performed By: #### L 400.0001, #### [facility] [address] [place], [address] Bilirubin [Mass/Vol] 0.60 mg/dL Normal 0.20-1.00 [facility] Comment on above: Result Comment: For patients on eltrombopag therapy, use of Dimension Outlook TBIL is not recommended. Performed By: #### L 400.0001, #### [facility] [address] [place], [address] BUN/CRE 20.8 RATIO High 10-20 [facility] Comment on above: Performed By: #### L 400.0001, #### [facility] [address] [place], [address] CA,Total 9.1 mg/dL Normal 8.5-10.1 [facility] Comment on above: Performed By: #### L 400.0001, #### [facility] [address] [place], [address] Chloride [Moles/Vol] 105 mmol/L Normal 98-107 [facility] Comment on above: Performed By: #### L 400.0001, #### [facility] [address] [place], [address] CO2 [Moles/Vol] 25.0 mmol/L Normal 21.0-32.0 [facility] Comment on above: Performed By: #### L 400.0001, 8 #### [facility] [address] [place], [address] Creatinine [Mass/Vol] 1.01 mg/dL Normal 0.70-1.30 [facility] Comment on above: Result Comment: The validity of the calculated GFR GFRAA in patients over 70 years has not been determined. Clinical correlation is essential. Performed By: #### L 400.0001, #### [facility] [address] [place], [address] ECRCL 105.45 ml/min Normal [facility] Comment on above: Performed By: #### L 400.0001, #### [facility] [address] [place], [address] EST GFR - AA 101 mL/min Normal >60 [facility] Comment on above: Result Comment: Afri can Czech GFR Calc Performed By: #### L 400.0001, #### [facility] [address] [place], [address] GAP 6 Normal 5-15 [facility] Comment on above: Performed By: #### L 400.0001, 8 #### [facility] [address] [place], [address] GFR/1.73 sq M.predicted among non-blacks MDRD (S/P/Bld) [Vol rate/Area] 84 mL/min/{1.73_m2} Normal >60 [facility] Comment on above: Result Comment: Non- GFR Calc Performed By: #### L 400.0001, #### [facility] [address] [place], [address] Globulin (S) [Mass/Vol] 4.5 g/dL High 2.2-4.2 [facility] Comment on above: Performed By: #### L 400.0001, 8 #### [facility] [address] [place], [address] Glucose [Mass/Vol] 148 mg/dL High 74-106 [facility] Comment on above: Result Comment: Fast ing Glucose result greater than or equal to 126 mg/dL suggests DIABETES MELLITUS per A.D.A. criteria. Performed By: #### L 400.0001, M100.678 #### [facility] [address] [place], [address] Potassium [Moles/Vol] 3.8 mmol/L Normal 3.5-5.1 [facility] Comment on above: Performed By: #### L 400.0001, M100.678 #### [facility] [address] [place], [address] Sodium [Moles/Vol] 136 mmol/L Normal 136-145 [facility] Comment on above: Performed By: #### L 400.0001, M100.678 #### [facility] [address] [place], [address] T PROT 7.8 g/dL Normal 6.4-8.2 [facility] Comment on above: Performed By: #### L 400.0001, M100.678 #### [facility] [address] [place], [address] Urea nitrogen [Mass/Vol] 21 mg/dL High 7-18 [facility] Comment on above: Performed By: #### L 400.0001, M100.678 #### [facility] [address] [place], [address] Emergency Department Summary on 02-07-2024 Emergency Department Summary [facility] Medical Records Department [address] [place] [address] Emergency Department Summary 02/07/24 MR#: [id number] Acct: [id number] Name: ASTON NAPOLES Rep #: [id number] : 1975 48 From: Ayden Choudhury DO PCP: Dr. Francisco Javier Osorio MD Status:REG ER Location: ED HPI History of Present Illness Chief Complaint: Nausea/Vomiting [facility] Medical History Generalized anxiety disorder Hernia Major depressive disorder, recurrent, moderate KEYLA on CPAP Home Medications ???Medication ???Instructions ???Recorded ???Last Taken ???Type cetirizine 10 mg capsule (Zyrtec) 10 mg PO DAILY 04/02/18 09/19/18 History fluticasone propionate 50 2 sprays IH DAILY 09/20/18 09/19/18 History mcg/actuation nasal spray,suspension alprazolam 0.25 mg tablet (Xanax) 0.25 mg PO DAILY PRN PRN Anxiety 10/29/20 Unknown History duloxetine 30 mg capsule,delayed 30 mg PO DAILY 10/29/20 Unknown History release (Cymbalta) dicyclomine 20 mg tablet 20 mg PO BID PRN abdominal pain 01/29/23 Unknown Rx #20 tabs ondansetron 4 mg disintegrating 4 mg PO Q6H PRN nausea and 01/29/23 Unknown Rx tablet vomiting #20 tabs hydrocodone-acetaminophe n 5-325mg 1 tab PO 02/07/24 Unknown History 5mg-325mg ondansetron 4 mg disintegrating 4 mg PO Q8H PRN PRN Nausea #10 tabs 02/07/24 Unknown Rx tablet ondansetron HCl 4 mg tablet 4 mg PO Q8H PRN PRN nausea/vomiting 02/07/24 Unknown History Allergy/AdvReac Type Severity Reaction Status Date / Time prochlorperazine (From AdvReac Other Verified 02/07/24 04:27 Compazine) Surgical History History of appendectomy History of hernia repair History of tonsillectomy Social History Smoking Status: Never smoker EXAM Physical Exam Const Vital Signs: 02/07/24 04:27 02/07/24 06:26 Temperature 98.5 F Temperature Source Oral Pulse Rate 105 H 53 L Respiratory Rate 16 16 Blood Pressure 157/96 H 155/101 H Blood Pressure Mean 116 119 Pulse Ox 94 95 Oxygen Delivery Method Room Air Room Air MDM MDM MDM Narrative Medical decision making narrative: HISTORY OF PRESENT ILLNESS: 48-year-old male presents with nausea vomiting since yesterday. He further states he was taking narcotics since Achilles surgery last week. Notes he has been constipated. Last bowel movement was before surgery. He notes that he developed nausea and vomiting. Denies chest pain or fever. Notes history of hernia repair but no other abdominal surgeries. Denies his gallbladder and appendix. no CP, SOB. REVIEW OF SYSTEMS: Pertinent positives: Nausea vomit Pertinent negatives: Fever, melena, hematochezia, no CP, SOB PHYSICAL EXAM: Nursing triage notes reviewed, Vital signs reviewed Constitutional: please see mdm HENT: MMM Eyes: Pupils equal round and reactive to light, Extraocular muscles intact Neck: No stridor, no JVD, full neck ROM Lungs: Clear to auscultation, No wheezing or rales. No increased work of breathing, no conversational dyspnea, no accessory muscle use, no nasal flaring. No respiratory distress noted Heart: Regular rate and rhythm, No murmurs, No rubs and No gallops, 2+ distal pulses (radial, femoral, posterior tibial) in all extremities Abdomen: Soft, minimal TTP throughout, no rigidity, rebound or guarding, no obvious peritoneal signs, no palpable pulsatile abdominal masses, no auscultated abdominal bruit : No CVAT Extremities: No edema Neuro: No focal neurological deficits, cranial nerves II through XII intact, 5/5 strength in all extremities. Intact sensation to light touch in all extremities, 2+ reflexes bilateral patella tendons. Normal gait. No ataxia. Skin: No rash or lesions noted MEDICAL DECISION MAKING: Chief Complaint: Nausea vomiting External records reviewed: Reviewed prior CT scan: CT scan from January 2023 showed diverticulosis but no diverticulitis Factors affecting care: Anxiety, hernia, history of hernia repair Social determinants of health: none History obtained from others: none Consults: none [facility] Narrative: Patient was initially hypertensive with a blood pressure 157/96, tachycardic with pulse rate of 105, patient was afebrile and nontoxic-appearing otherwise. Abdominal exam with slight distention, diffuse tenderness. No peritoneal signs I considered the following differential diagnosis: AAA, small bowel obstruction, abdominal perforation, appendicitis, pancreatitis, hepatobiliary pathology (acute cholecystitis), mesenteric ischemia, pathology (ie nephrolithiasis, pyelonephritis). ALL IMAGES (IF OBTAINED) HAVE BEEN PERSONALLY REVIEWED AND INTERPRETED BY MYSELF. (more content not included)... Normal [facility] Lipaseon 02-07-2024 Lipase [Catalytic activity/Vol] 16 U/L Normal -75 [facility] Comment on above: Result Comment: Rebekah shannon note: LIPASE revised reference range effective 22. New Lipase methodology. Expected to produce lower values than the previous assay method. NEW Reference Range: 13 - 75 U/L Performed By: #### L 400.0001, M100.678 #### [facility] [address] [place], [address] ANES POSTPROC EVALon 024 ANES POSTPROC EVAL HNO ID: [id number] Author: CARMEN LEWIS MD Service: Anesthesiology Author Type: Anesthesiologist Type: Anesthesia Postprocedure Evaluation Filed: 02/01/2024 13:50 Note Text: POST ANESTHESIA EVALUATION NOTE : 1975 Procedure Summary Date: 02/01/24 Room / Location: [place] [address] / [facility] Anesthesia Start: 1126 Anesthesia Stop: 1300 Procedures: [...] of care. Anesthesia Observations No Documentation SIGNATURE: Caremn Lewis MD PATIENT NAME: Aston Napoles DATE: February 01, 2024 TIME: 1:50 PM CSN: [id number] [facility] ANES PRE-OPon 02-01-2024 ANES PRE-OP HNO ID: [id number] Author: JONATHAN BUTLER MD Service: Anesthesiology Author [...] as of this encounter: 170.2 cm (5' 7). Weight as of this encounter: 96.2 kg [...] and consent discussed: yes. Patient / Responsible Libertarian agrees to proceed: yes Patient / Surrogate [...] Take 1,000 Units by mouth once daily. aspirin/acetaminophen/ca ffeine (EXCEDRIN MIGRAINE ORAL) Take 2 tablets by mouth every 8 hours as needed. naproxen sodium (ALEVE ORAL) Take 1 tablet by mouth every 8 hours as needed. DULoxetine (CYMBALTA) 30 mg capsule Take 1 capsule by mouth once daily. CETIRIZINE HCL (ZYRTEC ORAL) Take 1 tablet by mouth two times a day. 10 MG clotrimazole-betamethaso ne (LOTRISONE) cream Apply to affected area two [...] February 01, 2024 TIME: 10:40 AM CSN: [id number] [facility] BRIEF OP NOTon 02-01-2024 BRIEF OP NOT HNO ID: [id number] Author: JUAN ROGERS MD Service: Orthopaedic Surgery Author Type: Resident Type: Brief Op Note Filed: 02/01/2024 12:57 Note Text: BRIEF OP NOTE LOG ID: [id number] Surgery/Procedure Date: 02/01/2024 Incision/Procedure Start Time: 11:56 AM Incision Close/Procedure End Time: Surgeon(s)/Proceduralist (s) and Care Connector(s): Surgeons and Role: * Carmen Rojas MD - Primary * Tung Sheffield MD - Resident - Assisting * Juan Rogers MD - Resident - Assisting Pre-Op/Pre-Procedure Diagnosis: Left Insertional Angle's tendonitis Post-Op/Post-Procedure Diagnosis: Left Insertional Angle's tendonitis Procedure(s): Left Valentines's Tendon Debridement, Left Calcaneal Exostectomy Anesthesia: General Estimated Blood Loss: 10 mls Specimens Removed: * No specimens in log * Drain: Implant Name Type Inv. Item Serial No. Board Winder Lot No. LRB No. Used Action SYSTEM SPEEDBRIDGE JUMPSTART BIOCOMPOSITE FIXATION STERILE ACHILLES - [id number] Implant SYSTEM SPEEDBRIDGE JUMPSTART BIOCOMPOSITE FIXATION STERILE ACHILLES [employer] [id number] Left 1 Implanted Complications: None Patient was accompanied to the next level of care by a licensed practitioner from the surgical team pending completion of this brief op note (or operative note) Post-Op Plan: - Weight-bearing status: NWB LLE - Antibiotics: periop ancef - DVT prophylaxis - SCDs, ASA 325 BID - Pain - PO Ovid 5-325 q4 for 7 days - Regular diet - Keep splint clean, dry, elevated, keep pressure off the heel - Bowel regimen: Colace 100mg BID - Nausea: Zofran 4mg q8hr PRN SIGNATURE: Juan Rogers MD PATIENT NAME: Aston Napoles DATE: February 01, 2024 TIME: 12:54 PM PAGER/CONTACT #: [phone] [facility] NURSING PROGon 02-01-2024 NURSING PROG HNO ID: [id number] Author: GAETANO BERNSTEIN RN Service: Nursing Author [...] Signed By: Gaetano Bernstein RN In Department: Former[facility] named [facility] NURSING PROG HNO ID: [id number] Author: GAETANO BERNSTEIN RN Service: Nursing Author [...] Signed By: Gaetano Bernstein RN In Department: [facility] SURGERY [facility] OPERATIVE NOon 02-01-2024 OPERATIVE NO HNO ID: [id number] Author: CARMEN ROJAS MD Service: Orthopaedic Surgery Author Type: Physician Type: Operative Report Filed: 02/01/2024 13:33 Note Text: OPERATIVE/PROCEDURE REPORT LOG ID: [id number] Surgery/Procedure Date: 02/01/2024 Incision/Procedure Start Time: 11:56 AM Incision Close/Procedure End Time: 12:54 PM Surgeon(s)/Proceduralist (s) and Care Connector(s): Surgeons and Role: * Carmen Rojas MD - Primary * Tung Sheffield MD - Resident - Assisting * Juan Rogers MD - Resident - Assisting No Additional Staff Procedure(s): Left Achilles tendon secondary repair (CPT 22928) Left calcaneal Exostectomy (CPT 54732) Left Achilles tendon debridement (CPT 12245) Anesthesia: General Pre-Op/Pre-Procedure Diagnosis: Left Insertional achilles [...] DATE: February 01, 2024 TIME: 1:31 PM [facility] UA DIP, URINE (POC)on 2023 BILIRUBIN UA (POCT) Negative Negative [facility] CLARITY UA (POCT) Slightly Cloudy Cl [facility] COLOR UA (POCT) Dark yellow [facility] GLUCOSE UA (POCT) Negative Negative mg/dL [facility] Hemoglobin Ql (U) Negative Negative [facility] Interpretation and review of laboratory results Abnormal [facility] KETONE UA (POCT) Negative Negative mg/dL [facility] LEUKOCYTES UA (POCT) Negative Negative [facility] NITRITE UA (POCT) Negative Negative [facility] PH UA (POCT) 6.0 4.5 - 8.0 [facility] Protein Ql (U) 30 mg/dL Abnormal Negative [facility] SPECIFIC GRAVITY UA (POCT) >=1.030 1.005 - 1.030 [facility] UROBILINOGEN UA (POCT) 1.0 Normal E.U./dL [facility] Location:[facility], [address], [place], [place], [id number] [place] [address] POINT OF CARE [facility] HEARING TEST/AUDIOGRAMon TEST RESULTS: Audiometric testing revealed an asymmetrical hearing loss: pure tone thresholds within normal limits in the right ear and a mild sensorineural hearing loss in the left ear at 4000Hz and above. Speech receptionist airline lounge thresholds agree with pure tone thresholds bilaterally. Speech discrimination testing revealed excellent speech understanding ability bilaterally. Tympanometry revealed hypermobile tympanic membranes with normal middle ear pressure bilaterally. [facility] MR Ankle - left WO contrasto n 11-10-2023 IMPRESSION: SEVERE ACHILLES TENDINOSIS AND RETROCALCANEAL BURSITIS. NO ACUTE FRACTURE. Animal Care Technician: ADIA Transcribe Date/Time: Nov 10 2023 5:31P Dictated by : CORINNE MONTES DE OCA MD This examination was interpreted and the report reviewed and electronically signed by: CORINNE MONTES DE OCA MD on Nov 10 2023 5:34PM [facility] DIVISION OF RADIOLOGY * * *Final Report* * * DATE OF EXAM: Nov 10 2023 7:45AM [facility] 0163 - MRI ANKLE WO IVCON LT [...] the tarsal tunnel. DIVISION OF RADIOLOGY Provider, [facility] - 11/10/2023 * * *Final Report* * * DATE OF EXAM: Nov 10 2023 7:45AM [facility] 0163 - MRI ANKLE WO IVCON LT [...] TENDINOSIS AND RETROCALCANEAL BURSITIS. NO ACUTE FRACTURE. Animal Care Technician: ADIA Transcribe Date/Time: Nov 10 2023 5:31P Dictated by : CORINNE MONTES DE OCA MD This examination was interpreted and the report reviewed and electronically signed by: CORINNE MONTES DE OCA MD on Nov 10 2023 5:34PM EST [facility] Radiology Study observation (narrative) [facility] MR Ankle - left WO contrastO rdered By: [facility] Provider on 11-10-2023 [facility] EPIL EEG ROUTINEon [facility] EPIL EEG Routine [[id number]] Patient name: ASTON NAPOLES Start of test: 11/07/2023 13:28 End of test: 11/07/2023 13:52 Duration: 0 hr 24 min Requested By: MADHURI CASIANO Staff Physician: Alin Barber EEG Fellow or [place]: Citlali Murrieta History: 48 year old right-handed male with a history of hyperlipidemia, KEYLA, anxiety/depression, and seizures, presents to [facility] for evaluation. Seizure disorder 20 years ago, [...] M.D., M.S. Date of signin11/08/2023 00:07 NEUROLOGY [facility] 25-hydroxyvitamin D3 [Mass/V ol]on 11-01-2023 Interpretation and review of laboratory results Abnormal [facility] The reference range interval was based on an analysis of samples from healthy adults and may not pertain to children from 0-18 years old. [facility] Basic metabolic 2000 panelon 11-01-2023 Anion gap [Moles/Vol] 12 mmol/L 8 - 15 mmol/L [facility] Calcium [Mass/Vol] 9.2 mg/dL 8.5 - 10. 2 mg/dL [facility] Chloride [Moles/Vol] 104 mmol/L 98 - 10 7 mmol/L [facility] CO2 [Moles/Vol] 22 mmol/L 22 - 30 mmol/L [facility] Creatinine [Mass/Vol] 0.84 mg/dL 0.73 - 1.22 mg/dL [facility] GFR/1.73 sq M.predicted among non-blacks MDRD (S/P/Bld) [Vol rate/Area] 108 mL/min/{1.73_m2} - PINF [facility] Comment on above: Estimated Glomerular Filtration Rate [...] 100 mg/dL High 74 - 99 mg/dL [facility] Comment on above: The [place] Diabete s Association (ADA) provides guidance for [...] Standards of Medical Care in Diabetes 2016, [place] Diabetes Association. Diabetes Care. 2016.39(Suppl 1). Interpretation and review of laboratory results Abnormal [facility] Potassium [Moles/Vol] 4.1 mmol/L 3.7 - 5.1 mmol/L [facility] Sodium [Moles/Vol] 138 mmol/L 136 - 144 mmol/L [facility] Urea nitrogen [Mass/Vol] 15 mg/dL 9 - 24 mg/dL [facility] C-REACTIVE PROTEINon 024 CRP [Mass/Vol] mg/dL NINF - 0.9 mg/dL [facility] CBC panel Auto (Bld)on 10-31 Erythrocyte distribution width (RBC) [Ratio] 12.9 % 11.5 - 15.0 % [facility] Hematocrit (Bld) [Volume fraction] 44.3 % 39.0 - 51.0 % [facility] Hemoglobin (Bld) [Mass/Vol] 15.0 g/dL 13.0 - 17.0 g/dL [facility] Interpretation and review of laboratory results Normal [facility] MCH (RBC) [Entitic mass] 29.7 pg 26.0 - 34.0 pg [facility] MCHC (RBC) [Mass/Vol] 33.9 g/dL 30.5 - 36.0 g/dL [facility] MCV (RBC) [Entitic vol] 87.7 fL 80.0 - 100.0 fL [facility] Nucleated RBC (Bld) [#/Vol] NINF [facility] Platelet mean volume (Bld) [Entitic vol] 9.6 fL 9.0 - 12.7 fL [facility] Platelets (Bld) [#/Vol] 284 10*3/uL [facility] RBC (Bld) [#/Vol] 5.05 10*6/uL 4.20 - 6.0 0 m/uL [facility] WBC (Bld) [#/Vol] 5.31 10*3/uL [facility] CRP [Mass/Vol]on 11-01-2023 Interpretation and review of laboratory results Normal [facility] ECG COMPLETEon 11-01-2023 Atrial Rate 75 BPM [facility] Calculated P [place] 25 degrees [facility] Calculated R [place] -51 degrees [facility] Calculated T [place] -3 degrees [facility] P-R Interval 162 ms [facility] QRS Duration 100 ms [facility] QT Interval 414 ms [facility] QTC Calculation (Bazett) 462 ms [facility] Ventricular Rate 75 BPM [facility] NORMAL SINUS RHYTHM LEFT AXIS DEVIATION CANNOT EXCLUDE ANTERIOR MYOCARDIAL INFARCTION , AGE UNDETERMINED ABNORMAL ECG Confirmed by ANNIE WHITLOCK DO ([id number]) on 11/01/2023 8:09:29 [facility] NAME : BINDU NAPOLES PID : [id number] : 1975 Gender : Male Race : ORD : Procedure Date : Oct 31 2023 18:43:39 Edit Date : Nov 01 2023 08:09:33 Diagnosis: NORMAL SINUS RHYTHM LEFT AXIS DEVIATION CANNOT EXCLUDE ANTERIOR MYOCARDIAL INFARCTION , AGE UNDETERMINED ABNORMAL ECG Confirmed by ANNIE WHITLOCK DO ([id number]) on 11/01/2023 8:09:29 AM Test Reason : Location : 185 : [facility] Overread By : ANNIE WHITLOCK DO Edited By : ANNIE WHITLOCK DO Referred By : FRANCISCO JAVIER OSORIO Acquired by : [facility] ESR Westergren method (Bld) [Velocity]on 11-01-2023 ESR (Bld) [Velocity] 6 mm/h [facility] Interpretation and review of laboratory results Normal [facility] No Panel Informationon 10-31 [facility] VITAMIN D 25 HYDROXYon 10-31 25-hydroxyvitamin D3 [Mass/Vol] 30.5 ng/mL Low 31.0 - 80.0 ng/mL [facility] Comment on above: Classification of 25 [place] Vitamin D status: Deficiency/Insufficiency: < or = 30 ng/ml. Sufficiency/Optimal Levels: 31-80 ng/mL Toxicity: > 100 ng/mL. Test performed by chemiluminescent immunoassay. ANES POSTPROC EVALon 024 ANES POSTPROC EVAL HNO ID: [id number] Author: ROSS TORRES MD Service: Anesthesiology Author Type: Anesthesiologist Type: Anesthesia Postprocedure Evaluation Filed: 08/10/2023 16:06 Note Text: POST ANESTHESIA EVALUATION NOTE : 1975 Procedure Summary Date: 08/10/23 [place] / [place] [facility] [facility] Anesthesia Start: 1324 Anesthesia Stop: 141 Procedure: DESTRUCTION OF ANAL CONDYLOMA VIA ELECTRODESICCATION [...] August 10, 2023 TIME: 4:06 PM CSN: [id number] [facility] ANES PRE-OPon 08-10-2023 ANES PRE-OP HNO ID: [id number] Author: ROSS TORRES MD Service: Anesthesiology Author Type: Anesthesiologist Type: Anesthesia Preprocedure Evaluation Filed: 08/10/2023 13:00 Note Text: ANESTHESIOLOGY DAY OF SURGERY NOTE : 1975 Procedure Information Date/Time: 08/10/23 1415 Procedure: DESTRUCTION OF ANAL CONDYLOMA VIA ELECTRODESICCATION SIMPLE (Anus) Location[place]04 [place] Surgeons: Jonathan Nielsen MD Estimated body mass index is 29.29 kg/m? as calculated from the following: Height as of 08/04/23: 180.3 cm (5' 11). Weight as of 08/04/23: 95.3 kg (210 [...] 1 capsule by mouth once daily. - clotrimazole-betamethaso ne (LOTRISONE) cream Apply to affected area twice [...] by mouth two times a day. - aspirin/acetaminophen/ca ffeine (EXCEDRIN MIGRAINE ORAL) Take by mouth. - [...] August 10, 2023 TIME: 12:59 PM CSN: [id number] Normal [facility] HISTORY PHYSICALon HISTORY PHYSICAL HNO ID: [id number] Author: JONATHAN NIELSEN MD Service: General Surgery [...] mg by mouth as needed for anxiety. clotrimazole-betamethaso ne (LOTRISONE) cream Apply to affected area twice [...] denies constipation, d (more content not included)... [facility] OPERATIVE NOon 08-10-2023 OPERATIVE NO HNO ID: [id number] Author: JONATAHN NIELSEN MD Service: General Surgery Author Type: Physician Type: Operative Report Filed: 08/10/2023 14:13 Note Text: OPERATIVE/PROCEDURE REPORT LOG ID: [id number] SURGERY/PROCEDURE DATE: 08/10/2023 INCISION/PROCEDURE START TIME: 1340 INCISION CLOSE/PROCEDURE END TIME: 1357 SURGEON(S)/PROCEDURALIST (S) AND PRODUCTION TRUCK DRIVER(S): Surgeon(s) and Role: * Jonathan Nielsen MD - Primary * Mary Bowden DO - Resident - Assisting Physician Care Connector: Mirna Powell PA-C Registered Nurse Internal Audit Senior Manager: Negin Rosado RN SURGERY/PROCEDURE(S): Destruction of [...] 10, 2023 TIME: 1:12 PM ABove Normal [facility] XR Chest PA and Lateralon [facility] WILLIAN DIAG W AL BILATERALon 02-23-2023 [facility] US BREAST LTD LEFTon 023 [facility] COLONOSCOPY DIAGNOSTICon [facility] XR Abdomen Supine and Uprigh ton 07-01-2020 IMPRESSION: Nonobstructive bowel gas pattern. Animal Care Technician: ADIA Transcribe Date/Time: Jul 01 2020 9:30A Dictated by : SILVA HE MD This examination was interpreted and the report reviewed and electronically signed by: SILVA HE MD on Jul 01 2020 9:31AM [facility] DIVISION OF RADIOLOGY * * *Final Report* [...] structures appear intact. DIVISION OF RADIOLOGY Provider, [facility] - 07/01/2020 * * *Final Report* * [...] intact. IMPRESSION IMPRESSION: Nonobstructive bowel gas pattern. Animal Care Technician: ADIA Transcribe Date/Time: Jul 01 2020 9:30A Dictated by : SILVA HE MD This examination was interpreted and the report reviewed and electronically signed by: SILVA HE MD on Jul 01 2020 9:31AM EST [facility] Radiology Study observation (narrative) [facility] XR Abdomen Supine and Uprigh tOrdered By: [facility] Provider on 07-01-2020 [facility] Repor ton 03-30-2017 [facility] Report Type: OrthopedicDictated by: To be signed by: Transcribed by: Transcribed D/ Dictation D/ Report: March 24, 2017 Nicolás Bell PA-C [address] [place] [address] Dear Jed Monzon is a 42 year [...] patient's care. This note was dictated by Nikki Benitez PA-C. Sincerely, Annie Tinsley M.D.Copies to Physicians(s): Normal [facility] ED NOTEon 03-21-2017 [facility] NOTES Normal [facility] NOT[facility] Normal [facility] ED PROVIDERon 03-21-[address] [facility] [address] [facility] PROCEDUREon 03-18-2017 [facility] NOTES Normal [facility] PROGRESSon 03-15-2017 [facility] NOTES Normal [facility] Certificatioon 03-11-2017 [facility] HIM CAC NOTES Normal [facility] DISCH SUMMon 03-11-2017 [facility] NOTES Normal [facility] HISTORY AND PHYSICALon 03-11 [facility] NOTES Normal [facility] ISTAT TROPONIN Ion 7 Troponin I.cardiac mass conc ng/mL Normal 0-0.08 [facility] Comment on above: Performed By: #### A CBC, DDIMER, CHEM7F ####Testing performed at [address] [address] Troponin I.cardiac mass conc ng/mL Normal 0-0.08 [facility] Comment on above: Performed By: #### A CBC, DDIMER, CHEM7F ####Testing performed at [address] [address] NURSING NOTEon 03-11-2017 [facility] NOTES Normal [facility] NOT[facility] Normal [facility] NOTES Normal [facility] NOTES Normal [facility] PLAN OF CAREon 03-11-2017 [facility] NOTES Normal [facility] PROGRESSon 03-11-2017 [facility] NOTES Normal [facility] XR SHOULDER LEFT MIN 2 VIEWS [...] alignment. 2. No acute osseous injury. Normal [facility] CBCon 03-10-2017 ABSOLUTE BAS 0.0 X10 Normal [facility] Comment on above: Performed By: #### A CBC, DDIMER, CHEM7F ####Testing performed at [address] [address] ABSOLUTE EOS 0.10 X10 Normal [facility] Comment on above: Performed By: #### A CBC, DDIMER, CHEM7F ####Testing performed at [address] [address] Basophils/100 WBC Auto (Bld) 0.2 % Normal 0.0-2.0 [facility] Comment on above: Performed By: #### A CBC, DDIMER, CHEM7F ####Testing performed at [address] [address] DTYPE AUTO DIFF Normal [facility] Comment on above: Performed By: #### A CBC, DDIMER, CHEM7F ####Testing performed at [address] [address] Eosinophils/100 leukocytes 0.7 % Normal 0.0-11.0 [facility] Comment on above: Performed By: #### A CBC, DDIMER, CHEM7F ####Testing performed at [address] [address] Lymphocytes 2.10 X10 Normal [facility] Comment on above: Performed By: #### A CBC, DDIMER, CHEM7F ####Testing performed at [address] [address] Lymphocytes/100 leukocytes 13.9 % Low 20.0-55.0 [facility] Comment on above: Performed By: #### A CBC, DDIMER, CHEM7F ####Testing performed at [address] [address] Monocytes 0.6 X10 Normal [facility] Comment on above: Performed By: #### A CBC, DDIMER, CHEM7F ####Testing performed at [address] [address] Monocytes/100 leukocytes 3.8 % Normal 0.0-10.0 [facility] Comment on above: Performed By: #### A CBC, DDIMER, CHEM7F ####Testing performed at [address] [address] Neutrophils 12.5 x10 High 1.0-7.0 [facility] Comment on above: Performed By: #### A CBC, DDIMER, CHEM7F ####Testing performed at [address] [address] Neutrophils/100 leukocytes 81.4 % High 37.0-75.0 [facility] Comment on above: Performed By: #### A CBC, DDIMER, CHEM7F ####Testing performed at [address] [address] Erythrocyte distribution width Auto Ratio (RBC) 13.3 % Normal 11.5-14.5 [facility] Comment on above: Performed By: #### A CBC, DDIMER, CHEM7F ####Testing performed at [address] [address] Erythrocytes (RBC) 5.62 /cmm Normal 4.0-6.1 [facility] Comment on above: Performed By: #### A CBC DDIMER, CHEM7F ####Testing performed at [address] [address] Hematocrit (HCT) 48.4 % Normal 42.0-52.0 [facility] Comment on above: Performed By: #### A CBC DDIMER, CHEM7F ####Testing performed at [place] [id number] Hemoglobin mass conc (Bld) 16.4 g/dL Normal 14.0-18.0 [facility] Comment on above: Performed By: #### A CBC DDIMER CHEM7F ####Testing [place] [address] MCH 29.1 pg Normal 26.0-35.0 [facility] Comment on above: Performed By: #### A CBC DDIMER, CHEM7F ####Testing performed at [place] [id number] MCHC mass conc (RBC) 33.8 g/dL Normal 27.0-37.0 [facility] Comment on above: Performed By: #### A CBC DDIMER, CHEM7F ####Testing performed at [place] [id number] MCV 86.1 fL Normal 80.0-100.0 [facility] Comment on above: Performed By: #### A CBC DDIMER, CHEM7F ####Testing performed at [place] [id number] Platelet mean volume (PMV) 7.4 fL Normal 7.4-11.0 [facility] Comment on above: Performed By: #### A CBC DDIMER, CHEM7F ####Testing performed at [address] [address] Platelets 372 /cmm Normal 130.0-400.0 [facility] Comment on above: Performed By: #### A CBC, DDIMER, CHEM7F ####Testing performed at [place] [id number] WBC (Leukocytes) 15.4 /cmm High 3.6-11.0 [facility] Comment on above: Performed By: #### A CBC, DDIMER, CHEM7F ####Testing performed at [address] [address] CHEM 7 FASTINGon 03-10-2017 BUN (urea nitrogen) 20 mg/dL Normal 7-20 [facility] Comment on above: Performed By: #### A CBC, DDIMER, CHEM7F ####Testing performed at [place] [id number] Creatinine 1.0 mg/dL Normal 0.66-1.25 [facility] Comment on above: Performed By: #### A CBC, DDIMER, CHEM7F ####Testing performed at [place] [id number] eGFR (non-black) mL/min/{1.73_m2} Normal [facility] Comment on above: Performed By: #### A CBC, DDIMER, CHEM7F ####Testing [place] [address] eGFR (non-black) Average GFR for 40-4 9 years old = 99. Normal [facility] Comment on above: Result Comment: Material Chaser nafi Kidney disease, GFR = <60.Kidney failure, GFR = <15.The GFR estimate is not adjusted for extreme body surface area or acute process, nor has it been validated for women or ethnic groups other than and . Performed By: #### A CBC, DDIMER, CHEM7F ####Testing performed at [place] [id number] Chloride 100 mmol/L Normal 98-107 [facility] Comment on above: Performed By: #### A CBC, DDIMER, CHEM7F ####Testing performed at [place] [id number] CO2 25 mmol/L Normal 22-30 [facility] Comment on above: Performed By: #### A CBC, DDIMER, CHEM7F ####Testing performed at [place] [id number] Glucose mass conc 126 mg/dL High 70-100 [facility] Comment on above: Result Comment: NORM AL <100 mg/dLPREDIABETES 101-126 mg/dLDIABETES 126 mg/dL or higher Performed By: #### A CBC, DDIMER, CHEM7F ####Testing [place] [address] Potassium molar conc 3.3 mmol/L Low 3.5-5.1 [facility] Comment on above: Performed By: #### A CBC, DDIMER, CHEM7F ####[place] [address] Sodium 137 mmol/L Normal 137-145 [facility] Comment on above: Performed By: #### A CBC, DDIMER, CHEM7F ####Testing [place] [address] D DIMERon 03-10-2017 D DIMER <0.27 Normal <0.56 [facility] Comment on above: Result Comment: If r esult is greater than the cutoff value of 0.56 mg/L then the potential for PE or DVT exists. Other conditions exist which may cause a falsely elevated level. Please correlate clinically, including radiological findings and other clinical parameters. Performed By: #### A CBC, DDIMER, CHEM7F ####Testing [place] [address] ED NOTEon 03-10-2017 [facility] NOTES Normal [facility] NOT[facility] Normal [facility] NOT[facility] Normal [facility] NOT[facility] Normal [facility] NOT[facility] Normal [facility] ED PROVIDERon 03-10-2017 [facility] NOTES Normal [facility] ISTAT TROPONIN Ion 7 Troponin I.cardiac mass conc ng/mL Normal 0-0.08 [facility] Comment on above: Performed By: #### A CBC, DDIMER, CHEM7F ####Testing [place] [address] Troponin I.cardiac mass conc ng/mL Normal 0-0.08 [facility] Comment on above: Performed By: #### I TROT ####Testing performed at [place] [id number] MRSA SCREENon 03-10-2017 MRSA SCREEN Negative Normal [facility] Comment on above: Performed By: #### A CBC, DDIMER, CHEM7F ####Testing performed at [address] [address] [employer] SCREEN Negative Normal [facility] Comment on above: Result Comment: TEST ING PERFORMED BY PCR Performed By: #### A CBC, DDIMER, CHEM7F ####Testing performed at [place] [id number] NURSING NOTEon 03-10-2017 [facility] NOTES Normal [facility] PLAN OF CAREon 03-10-2017 [facility] NOTES Normal [facility] NOT[facility] Normal [facility] XR CHEST PA AND LATERALon XR [...] thoracolumbar spine.IMPRESSION: No acute cardiopulmonary process. Normal [facility] PROGRESSon 01-24-2017 [facility] NOTES Normal [facility] Vital Signs Date Time Vital Sign Value Performing Clinician Elvia muse 09-18-2024 16:22-0400 Body mass index (BMI) [Ratio] 33.94 kg/m2 Allen Siegel ACCOUNTS RECEIVABLE MANAGER.CERTIFIED CAREGIVER Work Phone: [facility] 09-18-2024 16:22-0400 Body temperature 102.31 [degF] Allen Swank ACCOUNTS RECEIVABLE MANAGER.CERTIFIED CAREGIVER Work Phone: [facility] 09-18-2024 16:22-0400 Body weight 98.3 kg Allen Swank ACCOUNTS RECEIVABLE MANAGER.CERTIFIED CAREGIVER Work Phone: [facility] 09-18-2024 16:22-0400 Diastolic blood pressure 76 mm[Hg] Allen Swank ACCOUNTS RECEIVABLE MANAGER.CERTIFIED CAREGIVER Work Phone: [facility] 09-18-2024 16:22-0400 Heart rate 125 /min Allen Swank ACCOUNTS RECEIVABLE MANAGER.CERTIFIED CAREGIVER Work Phone: [facility] 09-18-2024 16:22-0400 Respiratory rate 20 /min Allen Swank ACCOUNTS RECEIVABLE MANAGER.CERTIFIED CAREGIVER Work Phone: [facility] 09-18-2024 16:22-0400 SaO2% (BldA) [Mass fraction] 100 % Allen Swank ACCOUNTS RECEIVABLE MANAGER.CERTIFIED CAREGIVER Work Phone: [facility] 09-18-2024 16:22-0400 Systolic blood pressure 132 mm[Hg] Allen Swank ACCOUNTS RECEIVABLE MANAGER.CERTIFIED CAREGIVER Work Phone: [facility] 07-26-2024 17:14-0400 Body height 170.2 cm Francisco Javier Osorio MD Work Phone: [facility] 07-26-2024 17:14-0400 Body mass index (BMI) [Ratio] 33.25 kg/m2 Francisco Javier Osorio MD Work Phone: [facility] 07-26-2024 17:14-0400 Body weight 96.3 kg Francisco Javier Osorio MD Work Phone: [facility] 07-26-2024 17:14-0400 Diastolic blood pressure 76 mm[Hg] Francisco Javier Osorio MD Work Phone: [facility] 07-26-2024 17:14-0400 Heart rate 102 /min Francisco Javier Osorio MD Work Phone: [facility] 07-26-2024 17:14-0400 Respiratory rate 12 /min Francisco Javier Osorio MD Work Phone: [facility] 07-26-2024 17:14-0400 SaO2% (BldA) [Mass fraction] 97 % Francisco Javier Osorio MD Work Phone: [facility] 07-26-2024 17:14-0400 Systolic blood pressure 122 mm[Hg] Francisco Javier Osorio MD Work Phone: [facility] 07-23-2024 10:00-0400 Body mass index (BMI) [Ratio] 34.43 kg/m2 Francisco Javier Osorio MD Work Phone: [facility] 07-23-2024 10:00-0400 Body weight 99.7 kg Francisco Javier Osorio MD Work Phone: [facility] 04-23-2024 15:37-0500 Diastolic blood pressure 92 mm[Hg] Jonathan Foster APRN.CERTIFIED CAREGIVER, DNP Work Phone: [facility] 04-23-2024 15:37-0500 Heart rate 98 /min Jonathan Foster APRN.[facility] , DNP Work Phone: [facility] 04-23-2024 15:37-0500 SaO2% (BldA) [Mass fraction] 96 % Jonathan Foster APRN.[facility], DNP Work Phone: [facility] 04-23-2024 15:37-0500 Systolic blood pressure 150 mm[Hg] Jonathan Foster APRN.[facility], DNP Work Phone: [facility] 03-29-2024 10:06-0500 Body mass index (BMI) [Ratio] 34.43 kg/m2 Francisco Javier Osorio MD Work Phone: [facility] 03-29-2024 10:06-0500 Body temperature 100.8 [degF] Francisco Javier Osorio MD Work Phone: [facility] 03-29-2024 10:06-0500 Body weight 99.7 kg Francisco Javier Osorio MD Work Phone: [facility] 03-29-2024 10:06-0500 Diastolic blood pressure 88 mm[Hg] Francisco Javier Osorio MD Work Phone: [facility] 03-29-2024 10:06-0500 Heart rate 84 /min Francisco Javier Osorio MD Work Phone: [facility] 03-29-2024 10:06-0500 Respiratory rate 20 /min Francisco Javier Osorio MD Work Phone: [facility] 03-29-2024 10:06-0500 Systolic blood pressure 136 mm[Hg] Francisco Javier Osorio MD Work Phone: [facility] 02-29-2024 08:39-0500 Body height 170.2 cm Sebastien Petty MD Work Phone: [facility] 02-29-2024 08:39-0500 Body mass index (BMI) [Ratio] 34.3 kg/m2 Sebastien Petty MD Work Phone: [facility] 02-29-2024 08:39-0500 Body weight 99.34 kg Sebastien Petty MD Work Phone: [facility] 02-29-2024 08:39-0500 Diastolic blood pressure 93 mm[Hg] Sebastien Petty MD Work Phone: [facility] 02-29-2024 08:39-0500 Heart rate 78 /min Sebastien Petty MD Work Phone: [facility] 02-29-2024 08:39-0500 Respiratory rate 16 /min Sebastien Petty MD Work Phone: [facility] 02-29-2024 08:39-0500 Systolic blood pressure 147 mm[Hg] Sebastien Petty MD Work Phone: [facility] 02-27-2024 09:42-0500 Body height 172.3 cm Crystal Birmingham PA-C Work Phone: [facility] 02-27-2024 09:42-0500 Body mass index (BMI) [Ratio] 32.39 kg/m2 Crystal Birmingham PA-C Work Phone: [facility] 02-27-2024 09:42-0500 Body weight 96.16 kg Crystal Birmingham PA-C Work Phone: [facility] 02-27-2024 09:42-0500 Diastolic blood pressure 109 mm[Hg] Crystal Birmingham PA-C Work Phone: [facility] 02-27-2024 09:42-0500 Heart rate 102 /min Latisha Birmingham PA-C Work Phone: [facility] 02-27-2024 09:42-0500 Respiratory rate 18 /min Latisha Pelaezman PA-C Work Phone: [facility] 02-27-2024 09:42-0500 Systolic blood pressure 152 mm[Hg] Latisha Birmingham PA-C Work Phone: [facility] 01-30-2024 17:46-0400 Body mass index (BMI) [Ratio] 33.41 kg/m2 Francisco Javier Osorio MD Work Phone: [facility] 01-30-2024 17:46-0400 Body temperature 97.9 [degF] Francisco Javier Osorio MD Work Phone: [facility] 01-30-2024 17:46-0400 Body weight 99.2 kg Francisco Javier Osorio MD Work Phone: [facility] 01-30-2024 17:46-0400 Diastolic blood pressure 76 mm[Hg] Francisco Javier Osorio MD Work Phone: [facility] 01-30-2024 17:46-0400 Heart rate 100 /min Francisco Javier Osorio MD Work Phone: [facility] 01-30-2024 17:46-0400 Respiratory rate 16 /min Francisco Javier Osorio MD Work Phone: [facility] 01-30-2024 17:46-0400 SaO2% (BldA) [Mass fraction] 96 % Francisco Javier Osorio MD Work Phone: [facility] 01-30-2024 17:46-0400 Systolic blood pressure 125 mm[Hg] Francisco Javier Osorio MD Work Phone: [facility] 01-23-2024 09:19-0400 Body height 172.3 cm Jonathan Foster APRN.CERTIFIED CAREGIVER , DNP Work Phone: [facility] 01-23-2024 09:19-0400 Body mass index (BMI) [Ratio] 33.92 kg/m2 Jonathan Foster APRN.[facility], DNP Work Phone: [facility] 01-23-2024 09:19-0400 Body temperature 97 [degF] Jonathan Foster APRN.CERTIFIED CAREGIVER , DNP Work Phone: [facility] 01-23-2024 09:19-0400 Body weight 100.7 kg Jonathan Foster APRN.CERTIFIED CAREGIVER , DNP Work Phone: [facility] 01-23-2024 09:19-0400 Diastolic blood pressure 88 mm[Hg] Jonathan Foster APRN.[facility] Work Phone: [facility] 01-23-2024 09:19-0400 Heart rate 96 /min Jonathan Foster APRN.CERTIFIED CAREGIVER , [facility] Work Phone: [facility] 01-23-2024 09:19-0400 Respiratory rate 14 /min Jonathan Foster APRN.[facility] Work Phone: [facility] 01-23-2024 09:19-0400 SaO2% (BldA) [Mass fraction] 97 % Jonathan Foster APRN.[facility] Work Phone: [facility] 01-23-2024 09:19-0400 Systolic blood pressure 140 mm[Hg] Jonathan Foster APRN.[facility] Work Phone: [facility] 01-20-2024 07:38-0400 Body height 179.1 cm [facility] Work Phone: [facility] Comment on above: pt reported 01-20-2024 07:38-0400 Body mass index (BMI) [Ratio] 31.26 kg/m2 [facility] Work Phone: [facility] 01-20-2024 07:38-0400 Body weight 100.25 kg [facility] Work Phone: [facility] Comment on above: pt reported 01-19-2024 13:43-0400 Body height 179.1 cm Crystal Birmingham PA-C Work Phone: [facility] 01-19-2024 13:43-0400 Body mass index (BMI) [Ratio] 31.26 kg/m2 Crystal Birmingham PA-C Work Phone: [facility] 01-19-2024 13:43-0400 Body weight 100.25 kg Crystal Birmingham PA-C Work Phone: [facility] 01-19-2024 13:43-0400 Diastolic blood pressure 93 mm[Hg] Crystal Birmingham PA-C Work Phone: [facility] 01-19-2024 13:43-0400 Heart rate 96 /min Latisha Pelaezman PA-C Work Phone: [facility] 01-19-2024 13:43-0400 Respiratory rate 16 /min Latisha Pelaezman PA-C Work Phone: [facility] 01-19-2024 13:43-0400 Systolic blood pressure 141 mm[Hg] Latisha Pelaezman PA-C Work Phone: [facility] 01-09-2024 15:18-0400 Body height 179.1 cm Jonathan Nielsen MD Work Phone: [facility] 01-09-2024 15:18-0400 Body mass index (BMI) [Ratio] 31.29 kg/m2 Jonathan Nielsen MD Work Phone: [facility] 01-09-2024 15:18-0400 Body temperature 97.5 [degF] Jonathan Nielsen MD Work Phone: [facility] 01-09-2024 15:18-0400 Body weight 100.34 kg Jonathan Nielsen MD Work Phone: [facility] 01-09-2024 15:18-0400 Diastolic blood pressure 87 mm[Hg] Jonathan Nielsen MD Work Phone: [facility] 01-09-2024 15:18-0400 Heart rate 95 /min Jonathan Nielsen MD Work Phone: [facility] 01-09-2024 15:18-0400 SaO2% (BldA) [Mass fraction] 99 % Jonathan Nielsen MD Work Phone: [facility] 01-09-2024 15:18-0400 Systolic blood pressure 118 mm[Hg] Jonathan Nielsen MD Work Phone: [facility] 12-19-2023 09:27-0400 Body mass index (BMI) [Ratio] 33 kg/m2 Lorenzo Malone ACCOUNTS RECEIVABLE MANAGER.CERTIFIED CAREGIVER Work Phone: [facility] 12-19-2023 09:27-0400 Body temperature 98.4 [degF] Lorenzo Humblehenrique ACCOUNTS RECEIVABLE MANAGER.CERTIFIED CAREGIVER Work Phone: [facility] 12-19-2023 09:27-0400 Body weight 100.2 kg Lorenzo Malone ACCOUNTS RECEIVABLE MANAGER.CERTIFIED CAREGIVER Work Phone: [facility] 12-19-2023 09:27-0400 Diastolic blood pressure 78 mm[Hg] Lorenzo Malone ACCOUNTS RECEIVABLE MANAGER.CERTIFIED CAREGIVER Work Phone: [facility] 12-19-2023 09:27-0400 Heart rate 76 /min Lorenzo Pendhenrique ACCOUNTS RECEIVABLE MANAGER.CERTIFIED CAREGIVER Work Phone: [facility] 12-19-2023 09:27-0400 Respiratory rate 16 /min Lorenzo Katehenrique ACCOUNTS RECEIVABLE MANAGER.CERTIFIED CAREGIVER Work Phone: [facility] 12-19-2023 09:27-0400 SaO2% (BldA) [Mass fraction] 98 % Lorenzo Malone ACCOUNTS RECEIVABLE MANAGER.CERTIFIED CAREGIVER Work Phone: [facility] 12-19-2023 09:27-0400 Systolic blood pressure 124 mm[Hg] Lorenzo Malone ACCOUNTS RECEIVABLE MANAGER.CERTIFIED CAREGIVER Work Phone: [facility] 11-01-2023 14:45-0400 Body mass index (BMI) [Ratio] 33.62 kg/m2 Madhuri Casiano PA-C Work Phone: [facility] 11-01-2023 14:45-0400 Body weight 102.06 kg Madhuri Queener PA-C Work Phone: [facility] 11-01-2023 14:45-0400 Diastolic blood pressure 88 mm[Hg] Madhuri Capellaner PA-C Work Phone: [facility] 11-01-2023 14:45-0400 Heart rate 77 /min Madhuri Capellaner PA-C Work Phone: [facility] 11-01-2023 14:45-0400 Respiratory rate 18 /min Madhuri Capellaner PA-C Work Phone: [facility] 11-01-2023 14:45-0400 SaO2% (BldA) [Mass fraction] 98 % Madhuri Capellaner PA-C Work Phone: [facility] 11-01-2023 14:45-0400 Systolic blood pressure 134 mm[Hg] Madhuri Capellaner PA-C Work Phone: [facility] 10-31-2023 18:11-0400 Diastolic blood pressure 87 mm[Hg] Francisco Javier Osorio MD Work Phone: [facility] 10-31-2023 18:11-0400 Heart rate 79 /min Francisco Javier Osorio MD Work Phone: [facility] 10-31-2023 18:11-0400 Systolic blood pressure 130 mm[Hg] Francisco Javier Osorio MD Work Phone: [facility] 10-31-2023 18:00-0400 Body height 174.2 cm Francisco Javier Osorio MD Work Phone: [facility] 10-31-2023 18:00-0400 Body mass index (BMI) [Ratio] 33.62 kg/m2 Francisco Javier Osorio MD Work Phone: [facility] 10-31-2023 18:00-0400 Body weight 102.06 kg Francisco Javier Osorio MD Work Phone: [facility] 08-22-2023 13:59-0400 Body mass index (BMI) [Ratio] 30.93 kg/m2 Jonathan Nielsen MD Work Phone: [facility] 08-22-2023 13:59-0400 Body temperature 97 [degF] Jonathan Nielsen MD Work Phone: [facility] 08-22-2023 13:59-0400 Body weight 100.61 kg Jonathan Nielsen MD Work Phone: [facility] 08-22-2023 13:59-0400 Diastolic blood pressure 82 mm[Hg] Jonathan Nielsen MD Work Phone: [facility] 08-22-2023 13:59-0400 Heart rate 104 /min Jonathan Nielsen MD Work Phone: [facility] 08-22-2023 13:59-0400 SaO2% (BldA) [Mass fraction] 97 % Jonathan Nielsen MD Work Phone: [facility] 08-22-2023 13:59-0400 Systolic blood pressure 130 mm[Hg] Jonathan Nielsen MD Work Phone: [facility] 08-04-2023 14:42-0400 Body height 180.[address] [facility] 08-04-2023 14:42-0400 Body mass index (BMI) [Ratio] 29.29 kg/m2 [facility] 08-04-2023 14:42-0400 Body weight 95.[address] [facility] 08-01-2023 15:44-0400 Body height 179.1 cm Jonathan Nielsen MD Work Phone: [facility] 08-01-2023 15:44-0400 Body mass index (BMI) [Ratio] 30.64 kg/m2 Jonathan Nielsen MD Work Phone: [facility] 08-01-2023 15:44-0400 Body temperature 97.3 [degF] Jonathan Nielsen MD Work Phone: [facility] 08-01-2023 15:44-0400 Body weight 98.25 kg Jonathan Nielsen MD Work Phone: [facility] 08-01-2023 15:44-0400 Diastolic blood pressure 88 mm[Hg] Jonathan Nielsen MD Work Phone: [facility] 08-01-2023 15:44-0400 Heart rate 96 /min Jonathan Nielsen MD Work Phone: [facility] 08-01-2023 15:44-0400 Respiratory rate 20 /min Jonathan Nielsen MD Work Phone: [facility] 08-01-2023 15:44-0400 SaO2% (BldA) [Mass fraction] 97 % Jonathan Nielsen MD Work Phone: [facility] 08-01-2023 15:44-0400 Systolic blood pressure 132 mm[Hg] Jonathan Nielsen MD Work Phone: [facility] 07-15-2023 07:03-0400 Body temperature 96.69 [degF] Catarina Ezequiel ACCOUNTS RECEIVABLE MANAGER.CERTIFIED CAREGIVER Work Phone: [facility] 07-15-2023 07:03-0400 Body weight 97.52 kg Catarina Ezequiel ACCOUNTS RECEIVABLE MANAGER.CERTIFIED CAREGIVER Work Phone: [facility] 07-15-2023 07:03-0400 Diastolic blood pressure 86 mm[Hg] Catarina Ezequiel ACCOUNTS RECEIVABLE MANAGER.CERTIFIED CAREGIVER Work Phone: [facility] 07-15-2023 07:03-0400 Respiratory rate 16 /min Catarina Ezequiel ACCOUNTS RECEIVABLE MANAGER.CERTIFIED CAREGIVER Work Phone: [facility] 07-15-2023 07:03-0400 Systolic blood pressure 130 mm[Hg] Catarina Ezequiel ACCOUNTS RECEIVABLE MANAGER.CERTIFIED CAREGIVER Work Phone: [facility] 07-11-2023 08:13-0400 Body temperature 96.6 [degF] Catarina Ezequiel ACCOUNTS RECEIVABLE MANAGER.CERTIFIED CAREGIVER Work Phone: [facility] 07-11-2023 08:13-0400 Body weight 97.52 kg Catarina Ezequiel ACCOUNTS RECEIVABLE MANAGER.CERTIFIED CAREGIVER Work Phone: [facility] 07-11-2023 08:13-0400 Diastolic blood pressure 84 mm[Hg] Catarina Ezequiel ACCOUNTS RECEIVABLE MANAGER.CERTIFIED CAREGIVER Work Phone: [facility] 07-11-2023 08:13-0400 Heart rate 96 /min Catarina PriceEzequiel ACCOUNTS RECEIVABLE MANAGER.CERTIFIED CAREGIVER Work Phone: [facility] 07-11-2023 08:13-0400 Respiratory rate 16 /min Catarinaamanda Nieves ACCOUNTS RECEIVABLE MANAGER.CERTIFIED CAREGIVER Work Phone: [facility] 07-11-2023 08:13-0400 SaO2% (BldA) [Mass fraction] 97 % Catarina PriceEzequiel ACCOUNTS RECEIVABLE MANAGER.CERTIFIED CAREGIVER Work Phone: [facility] 07-11-2023 08:13-0400 Systolic blood pressure 128 mm[Hg] Catarina PriceEzequiel ACCOUNTS RECEIVABLE MANAGER.CERTIFIED CAREGIVER Work Phone: [facility] 06-13-2023 13:25-0500 Body weight 97.98 kg Robyn Perdue ACCOUNTS RECEIVABLE MANAGER.CN S Work Phone: [facility] 06-13-2023 13:25-0500 Diastolic blood pressure 86 mm[Hg] Robyn Perdue ACCOUNTS RECEIVABLE MANAGER.[employer] PRO[employer] ENGINEER Work Phone: [facility] 06-13-2023 13:25-0500 Heart rate 86 /min Robyn Perdue ACCOUNTS RECEIVABLE MANAGER.CN S Work Phone: [facility] 06-13-2023 13:25-0500 Systolic blood pressure 128 mm[Hg] Robyn Perdue ACCOUNTS RECEIVABLE MANAGER.SALES PROJECT ENGINEER Work Phone: [facility] 02-17-2023 09:39-0500 Diastolic blood pressure 81 mm[Hg] Jonathan Nielsen MD Work Phone: [facility] 02-17-2023 09:39-0500 Heart rate 97 /min Jonathan Nielsen MD Work Phone: [facility] 02-17-2023 09:39-0500 Respiratory rate 16 /min Jonathan Nielsen MD Work Phone: [facility] 02-17-2023 09:39-0500 SaO2% (BldA) [Mass fraction] 99 % Jonathan Nielsen MD Work Phone: [facility] 02-17-2023 09:39-0500 Systolic blood pressure 135 mm[Hg] Jonathan Nielsen MD Work Phone: [facility] 02-17-2023 08:15-0500 Body temperature 98.1 [degF] Jonathan Nielsen MD Work Phone: [facility] 02-17-2023 08:15-0500 Body weight 97.1 kg Jonathan Nielsen MD Work Phone: [facility] 01-31-2023 19:02-0400 Body weight 97.07 kg Francisco Javier Osorio MD Work Phone: [facility] 01-31-2023 19:02-0400 Diastolic blood pressure 82 mm[Hg] Francisco Javier Osorio MD Work Phone: [facility] 01-31-2023 19:02-0400 Heart rate 76 /min Francisco Javier Osorio MD Work Phone: [facility] 01-31-2023 19:02-0400 Respiratory rate 18 /min Francisco Javier Osorio MD Work Phone: [facility] 01-31-2023 19:02-0400 Systolic blood pressure 130 mm[Hg] Francisco Javier Osorio MD Work Phone: [facility] 12-16-2022 08:32-0400 Diastolic blood pressure 82 mm[Hg] Catarina Older ACCOUNTS RECEIVABLE MANAGER.CERTIFIED CAREGIVER Work Phone: [facility] 12-16-2022 08:32-0400 Systolic blood pressure 136 mm[Hg] Catarina Older ACCOUNTS RECEIVABLE MANAGER.CERTIFIED CAREGIVER Work Phone: [facility] 12-16-2022 08:02-0400 Body temperature 97.5 [degF] Catarina Older ACCOUNTS RECEIVABLE MANAGER.CERTIFIED CAREGIVER Work Phone: [facility] 12-16-2022 08:02-0400 Body weight 97.98 kg Catarina Older ACCOUNTS RECEIVABLE MANAGER.CERTIFIED CAREGIVER Work Phone: [facility] 12-16-2022 08:02-0400 Heart rate 89 /min Catarina Older ACCOUNTS RECEIVABLE MANAGER.CERTIFIED CAREGIVER Work Phone: [facility] 12-16-2022 08:02-0400 Respiratory rate 16 /min Catarina Older ACCOUNTS RECEIVABLE MANAGER.CERTIFIED CAREGIVER Work Phone: [facility] 12-16-2022 08:02-0400 SaO2% (BldA) [Mass fraction] 96 % Catarina Older ACCOUNTS RECEIVABLE MANAGER.CERTIFIED CAREGIVER Work Phone: [facility] 11-04-2022 07:01-0400 Body temperature 97.81 [degF] Robyn Perdue ACCOUNTS RECEIVABLE MANAGER.CN S Work Phone: [facility] 11-04-2022 07:01-0400 Body weight 96.16 kg Robyn Perdue ACCOUNTS RECEIVABLE MANAGER.CN S Work Phone: [facility] 11-04-2022 07:01-0400 Diastolic blood pressure 82 mm[Hg] Robyn Perdue ACCOUNTS RECEIVABLE MANAGER.SALES PROJECT ENGINEER Work Phone: [facility] 11-04-2022 07:01-0400 Heart rate 83 /min Robyn Perdue ACCOUNTS RECEIVABLE MANAGER.CN S Work Phone: [facility] 11-04-2022 07:01-0400 Respiratory rate 16 /min Robyn Perdue ACCOUNTS RECEIVABLE MANAGER.CN S Work Phone: [facility] 11-04-2022 07:01-0400 SaO2% (BldA) [Mass fraction] 98 % Robyn Perdue ACCOUNTS RECEIVABLE MANAGER.SALES PROJECT ENGINEER Work Phone: [facility] 11-04-2022 07:01-0400 Systolic blood pressure 128 mm[Hg] Robyn Perdue ACCOUNTS RECEIVABLE MANAGER.SALES PROJECT ENGINEER Work Phone: [facility] 05-17-2022 13:34-0500 Body temperature 96.8 [degF] Catarina Older ACCOUNTS RECEIVABLE MANAGER.CERTIFIED CAREGIVER Work Phone: [facility] 05-17-2022 13:34-0500 Body weight 96.16 kg Catarina Older ACCOUNTS RECEIVABLE MANAGER.CERTIFIED CAREGIVER Work Phone: [facility] 05-17-2022 13:34-0500 Diastolic blood pressure 80 mm[Hg] Catarina Older ACCOUNTS RECEIVABLE MANAGER.CERTIFIED CAREGIVER Work Phone: [facility] 05-17-2022 13:34-0500 Heart rate 94 /min Catarina Older ACCOUNTS RECEIVABLE MANAGER.CERTIFIED CAREGIVER Work Phone: [facility] 05-17-2022 13:34-0500 Respiratory rate 16 /min Catarina Older ACCOUNTS RECEIVABLE MANAGER.CERTIFIED CAREGIVER Work Phone: [facility] 05-17-2022 13:34-0500 SaO2% (BldA) [Mass fraction] 98 % Catarina Older ACCOUNTS RECEIVABLE MANAGER.CERTIFIED CAREGIVER Work Phone: [facility] 05-17-2022 13:34-0500 Systolic blood pressure 125 mm[Hg] Catarina Older ACCOUNTS RECEIVABLE MANAGER.CERTIFIED CAREGIVER Work Phone: [facility] 01-11-2022 15:05-0400 Diastolic blood pressure 80 mm[Hg] Catarina Older ACCOUNTS RECEIVABLE MANAGER.CERTIFIED CAREGIVER Work Phone: [facility] 01-11-2022 15:05-0400 Systolic blood pressure 112 mm[Hg] Catarina Older ACCOUNTS RECEIVABLE MANAGER.CERTIFIED CAREGIVER Work Phone: [facility] 01-11-2022 14:51-0400 Body weight 97.98 kg Catarina Older ACCOUNTS RECEIVABLE MANAGER.CERTIFIED CAREGIVER Work Phone: [facility] 01-11-2022 14:51-0400 Heart rate 80 /min Catarina Older ACCOUNTS RECEIVABLE MANAGER.CERTIFIED CAREGIVER Work Phone: [facility] 01-11-2022 14:51-0400 Respiratory rate 18 /min Catarina Older ACCOUNTS RECEIVABLE MANAGER.CERTIFIED CAREGIVER Work Phone: [facility] 11-06-2021 08:44-0400 Body height 177.8 cm Jonathan Nielsen MD Work Phone: [facility] 11-06-2021 08:44-0400 Body temperature 96.6 [degF] Jonathan Nielsen MD Work Phone: [facility] 11-06-2021 08:44-0400 Body weight 98.43 kg Jonathan Nielsen MD Work Phone: [facility] 11-06-2021 08:44-0400 Diastolic blood pressure 88 mm[Hg] Jonathan Nielsen MD Work Phone: [facility] 11-06-2021 08:44-0400 Heart rate 97 /min Jonathan Nielsen MD Work Phone: [facility] 11-06-2021 08:44-0400 SaO2% (BldA) [Mass fraction] 97 % Jonathan Nielsen MD Work Phone: [facility] 11-06-2021 08:44-0400 Systolic blood pressure 132 mm[Hg] Jonathan Nielsen MD Work Phone: [facility] 09-24-2021 13:37-0400 Body temperature 97 [degF] Francisco Javier Osorio MD Work Phone: [facility] 09-24-2021 13:37-0400 Body weight 97.98 kg Francisco Javier Osorio MD Work Phone: [facility] 09-24-2021 13:37-0400 Diastolic blood pressure 74 mm[Hg] Francisco Javier Osorio MD Work Phone: [facility] 09-24-2021 13:37-0400 Heart rate 84 /min Francisco Javier Osorio MD Work Phone: [facility] 09-24-2021 13:37-0400 Respiratory rate 16 /min Francisco Javier Osorio MD Work Phone: [facility] 09-24-2021 13:37-0400 SaO2% (BldA) [Mass fraction] 96 % Francisco Javier Osorio MD Work Phone: [facility] 09-24-2021 13:37-0400 Systolic blood pressure 126 mm[Hg] Francisco Javier Osorio MD Work Phone: [facility] Encounters Encounter Date Encounter Type Care Provider Facility Start: 02-11-2025 End: 02-11-2025 ambulatory FRANCISCO JAVIER OSORIO Facility:[facility] Start: 02-07-2025 End: 02-07-2025 ambulatory FRANCISCO JAVIER OSORIO Facility:[facility] Start: 01-17-2025 End: 01-17-2025 ambulatory GERMAN WOODWARD Facility:[facility] Start: 01-11-2025 End: 01-11-2025 ambulatory FRANCISCO JAVIER OSORIO Facility:[facility] Start: 10-31-2024 End: 11-02-2024 ambulatory Francisco Javier Osorio MD Work Phone: Internal Medicine [place] Comment on above: Apnea Machine Start: 10-26-2024 End: 10-31-2024 Telephone encounter Jonathan Nielsen MD Work Phone: General Surgery Comment on above: Appointment Start: 09-19-2024 End: 11-19-2024 Follow-up encounter Negrita Lee APRN.CERTIFIED CAREGIVER Work Phone: [facility] Start: 09-19-2024 End: 09-19-2024 Emergency department patient visit Tylor Wheeler Facility:[facility] Start: 09-18-2024 End: 09-18-2024 Patient encounter procedure Allen Siegel APRN.CERTIFIED CAREGIVER Work Phone: [facility] Comment on above: Fever, unspecified f ever cause (Primary Dx); Viral infection; Sore throat Start: 09-18-2024 End: 09-18-2024 ambulatory ALLEN LUZMATREVON Facility:[facility] Start: 08-17-2024 End: 08-17-2024 Telephone encounter Francisco Javier Osorio MD Work Phone: Internal Medicine [place] Comment on above: Patient Update Start: 07-26-2024 End: 07-26-2024 Patient encounter procedure Francisco Javier Osorio MD Work Phone: Internal Medicine [place] Comment on above: Hyperlipidemia, unsp ecified hyperlipidemia type (Primary Dx); Anxiety and depression; Achilles tendinitis of left lower extremity; Impaired fasting glucose; History of HPV infection Start: 07-26-2024 End: 07-26-2024 ambulatory FRANCISCO JAVIER OSORIO Facility:[facility] Start: 07-23-2024 End: 08-23-2024 Admission to same day surgery center Francisco Javier Osorio MD Work Phone: Ambulatory Surgery Comment on above: Outpatient [place] py (Patient is overdue for colorectal cancer screening (has never done). Please schedule open access colonoscopy. ) Start: 07-23-2024 End: 08-23-2024 ambulatory Francisco Javier Osorio MD Work Phone: Ambulatory Surgery Start: 07-21-2024 End: 07-21-2024 Follow-up encounter Francisco Javier Osorio MD Work Phone: Internal Medicine [place] Start: 07-19-2024 End: 07-19-2024 ambulatory Francisco Javier Osorio MD Work Phone: Internal Medicine [place] Comment on above: Mobic Start: 07-16-2024 End: 07-16-2024 Patient Msg Carmen Jazlyn Rojas MD Work Phone: [facility] Comment on above: Mobic refill Start: 07-12-2024 End: 07-13-2024 Telephone encounter Francisco Javier Osorio MD Work Phone: [place] Start: 07-10-2024 End: 07-27-2024 ambulatory Francisco Javier Osorio Facility:[facility] Start: 07-06-2024 End: 07-06-2024 ambulatory Enoc Bynum PT [facility] Physical Therapy Comment on above: Achilles tendinitis of left lower extremity (Primary Dx) Start: 07-02-2024 End: 07-09-2024 ambulatory [facility] Facility:[facility] Start: 06-18-2024 End: 06-29-2024 ambulatory Lisa Shayolvin Facility:[facility] Start: 06-07-2024 End: 06-07-2024 ambulatory FRANCISCO JAVIER OSORIO Facility:[facility] Start: 06-07-2024 End: 06-07-2024 Nursing evaluation of patient and report Nurse Exp Care [facility] Work Phone: [facility] Comment on above: Viral URI with cough (Primary Dx) Start: 06-07-2024 End: 06-07-2024 ambulatory FRANCISCO JAVIER OSORIO Facility:[facility] Start: 06-07-2024 End: 06-07-2024 Office outpatient visit 15 minutes Jackie Rice APRN.CERTIFIED CAREGIVER Work Phone: Telemedicine Comment on above: Viral URI with cough (Primary Dx); Flu-like symptoms Start: 06-05-2024 End: 06-05-2024 ambulatory Carmen Rojas MD Work Phone: Orthopaedics Comment on above: Code needed Start: 06-01-2024 End: 06-01-2024 ambulatory Enoc Bynum [facility] Physical Therapy Comment on above: Achilles tendinitis of left lower extremity (Primary Dx) Start: 05-10-2024 End: 05-10-2024 ambulatory FRANCISCO JAVIER OSORIO Facility:[facility] Start: 05-10-2024 End: 05-10-2024 Office outpatient visit 10 minutes Carmen Rojas MD Work Phone: Orthopaedics Comment on above: Achilles tendinitis of left lower extremity (Primary Dx) Start: 05-04-2024 End: 05-04-2024 ambulatory Enoc Bynum [facility] Physical Therapy Comment on above: Achilles tendinitis of left lower extremity (Primary Dx) Start: 04-27-2024 End: 04-27-2024 ambulatory FRANCISCO JAVIER OSORIO Facility:[facility] Start: 04-27-2024 End: 04-27-2024 Office outpatient new 45 minutes Ezequiel Davis MD Work Phone: Dermatology [facility] Comment on above: Neoplasm of uncertai n behavior of skin (Primary Dx); Lichen simplex chronicus; Xerosis cutis; Pruritus of skin Start: 04-25-2024 End: 04-25-2024 Telephone encounter Elizabeth Vasquez DDS Work Phone: Dentistry Comment on above: Appointment Start: 04-23-2024 End: 04-23-2024 ambulatory FRANCISCO JAVIER OSORIO Facility:[facility] Start: 04-23-2024 End: 04-23-2024 Patient encounter procedure Jonathan Foster ACCOUNTS RECEIVABLE MANAGER.CERTIFIED CAREGIVER, DNP Work Phone: Urology Comment on above: Bladder wall thicken ing (Primary Dx); Urgency of urination; Mixed stress and urge urinary incontinence; Erectile dysfunction of organic origin Start: 04-17-2024 End: 04-17-2024 ambulatory FRANCISCO JAVIER OSORIO Facility:[facility] Start: 04-17-2024 End: 04-17-2024 Postop follow up visit related to original px Carmen Rojas MD Work Phone: Orthopaedics Comment on above: Achilles tendinitis of left lower extremity (Primary Dx) Start: 04-14-2024 End: 04-16-2024 ambulatory Carmen Rojas MD Work Phone: Orthopaedics Comment on above: Infection?! Start: 04-13-2024 End: 04-13-2024 ambulatory Eonc Bynum [facility] Physical Therapy Comment on above: Achilles tendinitis of left lower extremity (Primary Dx); Referred otalgia of left ear Start: 04-09-2024 End: 04-09-2024 ambulatory FRANCISCO JAVIER OSORIO Facility:[facility] Start: 04-09-2024 End: 04-09-2024 Office outpatient visit 15 minutes Edward Ravi MD Work Phone: Otolaryngology Comment on above: Asymmetrical sensori neural hearing loss (Primary Dx); Referred otalgia of left ear Start: 04-06-2024 End: 04-06-2024 ambulatory Enoc Bynum PT [facility] Physical Therapy Comment on above: Achilles tendinitis of left lower extremity (Primary Dx) Start: 03-29-2024 End: 03-29-2024 Patient encounter procedure Francisco Javier Osorio MD Work Phone: Internal Medicine [place] Comment on above: Viral upper respirat ory tract infection (Primary Dx) Start: 03-29-2024 End: 03-29-2024 ambulatory FRANCISCO JAVIER OSORIO Facility:[facility] Start: 03-29-2024 End: 03-29-2024 Telemedicine consultation with patient Gary Walton SANTIAGO Work Phone: Telemedicine Comment on above: Treatment not availa ble (Primary Dx) Start: 03-28-2024 End: 03-28-2024 ambulatory Enoc Bynum PT [facility] Physical Therapy Comment on above: Achilles tendinitis of left lower extremity (Primary Dx) Start: 03-23-2024 End: 03-23-2024 ambulatory Enoc Bynum PT [facility] Physical Therapy Comment on above: Achilles tendinitis of left lower extremity (Primary Dx) Start: 03-15-2024 End: 03-15-2024 ambulatory FRANCISCO JAVIER Dumont DEVON Facility:[facility] Start: 03-15-2024 End: 03-15-2024 Postop follow up visit related to original px Carmen Rojas MD Work Phone: Orthopaedics Comment on above: Achilles tendinitis of left lower extremity (Primary Dx) Start: 02-29-2024 End: 02-29-2024 ambulatory FRANCISCO JAVIER Dumont DEVON Facility:[facility] Start: 02-29-2024 End: 02-29-2024 Patient encounter procedure Sebastien Petty MD Work Phone: Urology Comment on above: Bladder wall thicken ing (Primary Dx); Urgency of urination; Mixed stress and urge urinary incontinence Start: 02-27-2024 End: 02-27-2024 Patient encounter procedure Latisha Birmingham PA-C Work Phone: [facility] ([facility]) Comment on above: Ear pressure, left; Asymmetrical sensorineural hearing loss; Chronic eczematous otitis externa of both ears; Dysfunction of left eustachian tube Start: 02-27-2024 End: 02-27-2024 ambulatory LATISHA BIRMINGHAM Facility:[facility] Start: 02-23-2024 End: 02-23-2024 Nursing evaluation of patient and report Pato Lucas RN Work Phone: Orthopaedics Comment on above: Achilles tendinitis of left lower extremity (Primary Dx) Start: 02-23-2024 End: 02-23-2024 ambulatory FRANCISCO JAVIER Duomnt DEVON Facility:[facility] Start: 02-23-2024 End: 02-23-2024 Subsequent hospital visit by physician [facility] (I-Stat) Work Phone: Cat Scan Comment on above: Bladder wall thicken ing [N32.89] Start: 02-21-2024 End: 02-21-2024 E-mail encounter from caregiver Latisha Nacho MONTENEGRO Work Phone: [facility] (ENT) Start: 02-21-2024 End: 02-21-2024 Patient encounter procedure Latisha Birmingham PA-C Work Phone: [facility]) Comment on above: MRI Results Start: 02-21-2024 End: 02-21-2024 ambulatory FRANCISCO JAVIER OSORIO Facility:[facility] Start: 02-21-2024 End: 02-21-2024 Subsequent hospital visit by physician Mri Radio [facility] (I-Stat/1.5t) Work Phone: Radiology Comment on above: Sensorineural hearin g loss (SNHL) of left ear with unrestricted hearing of right ear [H90.42] Start: 2024 End: 02-29-2024 Admission to same day surgery center Jonathan Nielsen MD Work Phone: General Surgery Comment on above: Cyst? Start: 2024 End: 02-29-2024 ambulatory Jonathan Nielsen MD Work Phone: General Surgery Start: 02-11-2024 End: 02-11-2024 ambulatory [facility] Nurse [facility] Work Phone: [facility] [place] Start: 02-11-2024 End: 02-11-2024 Patient encounter procedure [facility] Nurse [place] Work Phone: [facility] [place] Start: 02-10-2024 End: 02-10-2024 Telephone encounter Carmen Rojas MD Work Phone: [facility] Comment on above: Patient Question Start: 02-09-2024 End: 02-09-2024 Postop follow up visit related to original px Carmen Rojas MD Work Phone: Orthopaedics Comment on above: Achilles tendinitis of left lower extremity (Primary Dx) Start: 02-09-2024 End: 02-09-2024 Patient encounter procedure [employer] [facility] Work Phone: Orthopaedics Comment on above: Achilles tendinitis of left lower extremity (Primary Dx) Start: 02-09-2024 End: 02-09-2024 Subsequent hospital visit by physician Xr [facility] [place] Work Phone: Radiology Comment on above: Achilles tendinitis of left lower extremity [M76.62] Start: 02-07-2024 End: 02-07-2024 ambulatory Maday Decker RN NURSE [facility] Comment on above: Vomiting Start: 02-07-2024 End: 02-07-2024 Emergency department patient visit Francisco Javier Osorio Facility:[facility] Start: 02-06-2024 End: 02-06-2024 ambulatory Frances Kam RN NURSE CAR [facility] Comment on above: Vomiting; Constipati on Start: 02-01-2024 End: 02-01-2024 [facility] Start: 01-30-2024 End: 01-30-2024 Patient encounter procedure Francisco Javier Osorio MD Work Phone: Internal Medicine [place] Comment on above: Anxiety and depressi on (Primary Dx); Achilles tendinitis of left lower extremity; Hyperlipidemia, unspecified hyperlipidemia type Start: 01-23-2024 End: 01-23-2024 Patient encounter procedure Jonathan Foster APRN.CERTIFIED CAREGIVER, DNP Work Phone: Urology Comment on above: Bladder wall thicken ing (Primary Dx); Urgency of urination; Mixed stress and urge urinary incontinence; Prostate cancer screening Start: 01-20-2024 End: 01-20-2024 Admission to [place] [id number] Work Phone: Pre Anesthesia Start: 01-20-2024 End: 01-20-2024 Anesthesia consultation [facility] Work Phone: Pre Anesthesia Comment on above: Pre-op testing (Prim praveena Dx); Achilles tendinitis of left lower extremity; KEYLA (obstructive sleep apnea); Anxiety and depression; Hyperlipidemia, unspecified hyperlipidemia type; Obesity, Class I, BMI 30-34.9; Vitamin D deficiency; History of seizures; Seasonal allergic rhinitis, unspecified trigger Start: 01-20-2024 End: 01-20-2024 Patient encounter status [facility] Work Phone: [facility] Work Phone: Start: 01-19-2024 End: 01-19-2024 Patient encounter procedure German Woodward AUD Work Phone: [facility] Comment on above: Asymmetrical sensori neural hearing loss (Primary Dx) Acute otitis externa of right ear, unspecified type; Dysfunction of both eustachian tubes; Sensorineural hearing loss (SNHL) of left ear with unrestricted hearing of right ear; Chronic eczematous otitis externa of both ears Start: 01-17-2024 End: 01-17-2024 Patient Msg Carmen Rojas MD Work Phone: [facility] Comment on above: Order Start: 01-11-2024 End: 01-12-2024 Telephone encounter Jonathan Foster APRN.CERTIFIED CAREGIVER, DNP Work Phone: Urology Comment on above: Appointment Start: 01-09-2024 End: 01-09-2024 Patient encounter procedure Jonathan Nielsen MD Work Phone: General Surgery Comment on above: Rectal bleeding (Dorina jaylene Dx) Start: 12-26-2023 End: 12-26-2023 Telephone encounter Carmen Rojas MD Work Phone: Orthopaedics Comment on above: Patient Question; Ap pointment Start: 12-19-2023 End: 12-19-2023 Office outpatient visit 25 minutes Lorenzo Malone APRN.CNP Work Phone: [place] [facility] Comment on above: Suspected COVID-19 v irus infection (Primary Dx); Acute otitis media, left Start: 12-19-2023 End: 12-19-2023 ambulatory Enoc Cruz [facility] Physical Therapy Comment on above: Chronic heel pain, l eft (Primary Dx); Achilles tendinitis of left lower extremity; Pre-op testing Start: 12-19-2023 End: 03-29-2024 Patient encounter status Enoc Bynum PT [facility] Start: 12-13-2023 End: 12-13-2023 ambulatory Ca Johansen CLAIMS ADJUSTER SUPERVISOR Work Phone: [facility] Physical Therapy Comment on above: Chronic heel pain, l eft (Primary Dx) Start: 12-10-2023 End: 12-13-2023 Admission to same day surgery center Carmen Rojas MD Work Phone: Orthopaedics Comment on above: Surgery Start: 12-10-2023 End: 12-13-2023 ambulatory Carmen Rojas MD Work Phone: Orthopaedics Start: 12-08-2023 End: 12-08-2023 Office consultation new/estab patient 60 min Carmen Rojas MD Work Phone: Orthopaedics Comment on above: Achilles tendinitis of left lower extremity (Primary Dx) Start: 12-05-2023 End: 12-05-2023 ambulatory Enoc Bynum PT [facility] Physical Therapy Comment on above: Chronic heel pain, l eft (Primary Dx) Start: 11-20-2023 End: 11-20-2023 Letter encounter Jake Conrad MD Work Phone: [facility] Start: 11-14-2023 End: 11-14-2023 ambulatory Enoc Bynum PT [facility] Physical Therapy Comment on above: Chronic heel pain, l eft (Primary Dx) Start: 11-10-2023 End: 11-10-2023 Subsequent hospital visit by physician Mri Radio [facility] (I-Stat/1.5t) Work Phone: Radiology Comment on above: Chronic pain of left ankle [M25.572, G89.29] Start: 11-07-2023 End: 11-08-2023 Patient encounter procedure Eeg Neur [facility] Work Phone: Neurology Comment on above: History of seizure; Seizure disorder (HCC) Start: 11-01-2023 End: 11-01-2023 Patient encounter procedure Madhuri Casiano PA-C Work Phone: Neurology Comment on above: Seizure disorder (HC C) (Primary Dx); History of seizure Start: 10-31-2023 End: 10-31-2023 Patient encounter procedure Francisco Javier Osorio MD Work Phone: Internal Medicine [place] Comment on above: Routine medical exam (Primary Dx); Dermatitis; Psoriasis; Anxiety and depression; Disturbance of smell; History of seizure; Chest pain, atypical; Pain in joint involving multiple sites Start: 10-31-2023 End: 10-31-2023 Patient encounter status Francisco Javier Osorio MD Work Phone: [facility] Start: 10-28-2023 Telephone encounter Francisco Javier vicente MD Work Phone: Internal Medicine [place] Comment on above: Patient Question Start: 10-18-2023 Telephone encounter Carmen Rojas MD Work Phone: [facility] [place] Comment on above: Appointment Start: 10-10-2023 End: 10-10-2023 Patient encounter procedure Aston Mcmahan Work Phone: Podiatry Comment on above: Chronic pain of left ankle (Primary Dx); Calcaneal spur of left foot Start: 10-10-2023 End: 10-10-2023 Subsequent hospital visit by physician Aldair [facility] [place] Tilley Work Phone: Radiology Comment on above: Pain in left foot [M 79.672] Start: 09-06-2023 Refill Catarina bob APRN.CNP Work Phone: Internal Medicine [place] Comment on above: Refill Request Start: 08-22-2023 End: 08-22-2023 Patient encounter procedure Jonathan Nielsen MD Work Phone: General Surgery Comment on above: Anal warts (Primary Dx) Start: 08-10-2023 End: 08-10-2023 ambulatory JONATHAN NIELSEN Facility:[facility] Start: 08-04-2023 End: 08-04-2023 Admission to establishment [facility] Pre Anesthesia Start: 08-04-2023 End: 08-04-2023 Anesthesia consultation [facility] Pre Anesthesia Comment on above: Preoperative examina tion (Primary Dx); KEYLA (obstructive sleep apnea); Anxiety and depression; Hyperlipidemia, unspecified hyperlipidemia type; Psoriasis Start: 08-04-2023 End: 08-04-2023 Preprocedural examination done [facility] Start: 08-01-2023 End: 08-01-2023 Patient encounter procedure Jonathan Nielsen MD Work Phone: General Surgery Comment on above: Anal warts (Primary Dx) Start: 08-01-2023 End: 02-14-2024 Telephone encounter Jonathan Nielsen MD Work Phone: General Surgery Comment on above: 08/10/2023 EXC ANAL WA RTS BOB Start: 07-27-2023 Refill Catarina bob ACCOUNTS RECEIVABLE MANAGER.CERTIFIED CAREGIVER Work Phone: Internal Medicine [place] Comment on above: Refill Request Start: 07-15-2023 End: 07-15-2023 Patient encounter procedure Catarina Nieves ACCOUNTS RECEIVABLE MANAGER.CERTIFIED CAREGIVER Work Phone: Internal Medicine [place] Comment on above: Abdominal wall cellu litis (Primary Dx) Start: 07-11-2023 End: 07-11-2023 Patient encounter procedure Catarina Nieves ACCOUNTS RECEIVABLE MANAGER.CERTIFIED CAREGIVER Work Phone: Internal Medicine [place] Comment on above: Abdominal wall cellu litis (Primary Dx) Start: 06-16-2023 ambulatory Robyn JORDANSALES PROJECT ENGINEER Work Phone: Internal Medicine [place] Comment on above: Chest xray Start: 06-15-2023 End: 06-15-2023 Subsequent hospital visit by physician Aldair [facility] [place] Mob Work Phone: Radiology Comment on above: Other infective acut e otitis externa of both ears [H60.393] Start: 06-13-2023 End: 06-13-2023 Office outpatient visit 15 minutes Robyn Perdue APRN.SALES PROJECT ENGINEER Work Phone: Internal Medicine [place] Comment on above: Elevated blood press ure reading in office without diagnosis of hypertension (Primary Dx); Encounter for immunization; Acute suppurative otitis media of both ears without spontaneous rupture of tympanic membranes, recurrence not specified; Other infective acute otitis externa of both ears; Acute cough; Acute non-recurrent frontal sinusitis Start: 02-24-2023 End: 02-24-2023 Patient encounter procedure Jonathan Nielsen MD Work Phone: General Surgery Comment on above: Anal warts (Primary Dx) Start: 02-23-2023 End: 02-23-2023 Subsequent hospital visit by physician Diagnostic Mammo [facility] Mammogram Comment on above: Subareolar mass of l eft breast [N63.42] Start: 02-17-2023 ambulatory Rachana Carter RN NURS E [facility] Comment on above: Information Patient Update Start: 02-17-2023 End: 02-17-2023 Subsequent hospital visit by physician Jonathan Nielsen MD Work Phone: Ambulatory Surgery Comment on above: Abdominal pain, left lower quadrant [R10.32] Start: 02-01-2023 End: 02-01-2023 Patient encounter procedure Jonathan Nielsen MD Work Phone: General Surgery Comment on above: Abdominal pain, left lower quadrant; Rectal bleeding Start: 01-31-2023 End: 01-31-2023 Patient encounter procedure Francisco Javier Osorio MD Work Phone: Internal Medicine [place] Comment on above: Abdominal pain, left lower quadrant (Primary Dx); Rectal bleeding; Subareolar mass of left breast; Need for COVID-19 vaccine Start: 12-24-2022 ambulatory Catarina Older ACCOUNTS RECEIVABLE MANAGER .CERTIFIED CAREGIVER Work Phone: Internal Medicine [place] Comment on above: lab results Start: 12-24-2022 E-mail encounter fro m caregiver Catarina Richards APRN.CERTIFIED CAREGIVER Work Phone: [facility] Start: 12-16-2022 End: 12-16-2022 Patient encounter procedure Catarina Richards APRN.CERTIFIED CAREGIVER Work Phone: Internal Medicine [place] Comment on above: Otitis media, recurr ent, left (Primary Dx); Erectile dysfunction, unspecified erectile dysfunction type; Psoriasis; Pain in joint involving multiple sites; Encounter for lipid screening for cardiovascular disease; Encounter for screening for diabetes mellitus; Encounter for immunization Start: 11-04-2022 End: 11-04-2022 Office outpatient visit 15 minutes Robyn Perdue APRN.SALES PROJECT ENGINEER Work Phone: Internal Medicine [place] Comment on above: Bug bite, initial en counter (Primary Dx); Skin infection Start: 08-22-2022 Letter encounter Jake styles MD Work Phone: [facility] Start: 07-21-2022 Refill Francisco Javier bonilla MD Work Phone: Internal Medicine [place] Comment on above: Refill Request Start: 05-25-2022 Telephone encounter Francisco Javier vicente MD Work Phone: Family Medicine [place] Comment on above: Patient Question Start: 05-17-2022 End: 05-17-2022 Patient encounter procedure Catarina Richards ACCOUNTS RECEIVABLE MANAGER.CERTIFIED CAREGIVER Work Phone: Internal Medicine [place] Comment on above: Non-recurrent acute suppurative otitis media of both ears without spontaneous rupture of tympanic membranes (Primary Dx) Start: 04-15-2022 Refill Francisco Javier bonilla MD Work Phone: Internal Medicine [place] Comment on above: Refill Request Start: 03-11-2022 End: 03-11-2022 ambulatory Pamelacoreen Richards APRN.CERTIFIED CAREGIVER Work Phone: Internal Medicine [place] Comment on above: COVID (Primary Dx) Start: 03-11-2022 End: 03-11-2022 Telemedicine consultation with patient Pamela Richards APRN.CERTIFIED CAREGIVER Work Phone: [facility] Start: 01-11-2022 End: 01-11-2022 Patient encounter procedure Catarina Richards ACCOUNTS RECEIVABLE MANAGER.CERTIFIED CAREGIVER Work Phone: Internal Medicine [place] Comment on above: Anxiety and depressi on (Primary Dx); Obesity, Class I, BMI 30-34.9; KEYLA (obstructive sleep apnea); Encounter for immunization Start: 11-06-2021 End: 11-06-2021 Patient encounter procedure Jonathan Nielsen MD Work Phone: General Surgery Comment on above: Perianal abscess (Pr imary Dx) Start: 11-05-2021 Telephone encounter Francisco Javier vicente MD Work Phone: Family [facility] Comment on above: Appointment Start: 10-26-2021 ambulatory Francisco Javier bonilla MD Work Phone: Internal Medicine [place] Comment on above: Diarrhea Start: 09-24-2021 End: 09-24-2021 Office outpatient visit 10 minutes Francisco Javier Osorio MD Work Phone: [facility] Comment on above: Impacted cerumen of left ear (Primary Dx); Acute non-recurrent sinusitis of other sinus Start: 09-22-2021 ambulatory Catarina CooperCERTIFIED CAREGIVER Work Phone: [facility] [place] Comment on above: My call today Start: 09-22-2021 Telephone encounter Francisco Javier vicente MD Work Phone: [facility] [place] Comment on above: Patient Update Start: 07-04-2021 Orders Only Francisco Javier bonilla MD Work Phone: [facility] [place] Comment on above: Positive hepatitis C antibody test (Primary Dx) Start: 07-06-2020 End: 07-06-2020 Orders Only Norah Zavaleta Work Phone: [facility] Start: 07-01-2020 End: 07-01-2020 Subsequent hospital visit by physician Aldair [facility] Work Phone: Radiology Comment on above: Constipation, unspec ified constipation type [K59.00] Start: 05-25-2020 End: 05-25-2020 Letter encounter Jake Conrad [facility] Start: 03-21-2017 End: 03-21-2017 Emergency department patient visit [facility] Start: 03-18-2017 [facility] Start: 03-15-2017 Ambulatory CHARAN BELL [facility] Start: 03-10-2017 End: 03-11-2017 Ambulatory LINDSEY GONZALEZ [facility] Start: 01-24-2017 Ambulatory CHARAN José Manuel [facility] Procedures Date Procedure Procedure Detail Performing Clinician Start: 09-18-2024 Iadna streptococcus group a amplified probe tq Allen Gurjit CASTELLONCERTIFIED CAREGIVER Work Phone: Start: 07-19-2024 Lipid 1996 panel - Serum or Plasma Francisco Javier Osorio MD Work Phone: Start: 04-27-2024 SKIN / NAIL BIOPSY Ezequiel Davis MD Work Phone: Start: 04-23-2024 Urnls dip stick/tablet rgnt auto w/o microscopy Jonathan Foster APRN.CERTIFIED CAREGIVER, DNP Work Phone: Start: 02-29-2024 Us transrct prstate vol brachytx plnning spx Sebastien Petty MD Work Phone: Start: 02-29-2024 Urnls dip stick/tablet rgnt auto w/o microscopy Sebastien Petty MD Work Phone: Start: 02-21-2024 Mri brain brain stem w/o w/contrast material Latisha Birmingham PA-C Work Phone: Start: 02-11-2024 PFIZER-BIONTECH COVID-19 VACCINE AGE 12+ YR (COMIRNATY) Jake Dahl MD Work Phone: Start: 02-09-2024 Application short leg splint calf foot Diana Griffith MA Start: 02-09-2024 Radex ankle complete minimum 3 views Carmen Rojas MD Work Phone: Start: 01-23-2024 Urnls dip stick/tablet rgnt auto w/o microscopy Jonathan Foster ACCOUNTS RECEIVABLE MANAGER.CERTIFIED CAREGIVER, DNP Work Phone: Start: 01-19-2024 HEARING TEST/AUDIOGRAM German BATRES Work Phone: Start: 11-10-2023 Mri any jt lower extrem w/o contrast matrl Aston Mcmahan Work Phone: Start: 11-07-2023 Electroencephalogram w/rec awake&drowsy Madhuri Casiano PA-C Work Phone: Start: 10-31-2023 Ecg routine ecg w/least 12 lds i&r only [facility] Provider Start: 06-15-2023 Radiologic exam chest 2 views Robyn Broo ks ACCOUNTS RECEIVABLE MANAGER.SALES PROJECT ENGINEER Work Phone: Start: 02-23-2023 Us breast uni real time with image limited Francisco Javier Osorio MD Work Phone: Start: 02-23-2023 Digital breast tomosynthesis bilateral Francisco Javier Osorio MD Work Phone: Start: 02-17-2023 Colonoscopy flx dx w/collj spec when pfrmd Jonathan Nielsen MD Work Phone: Start: 02-17-2023 Colonoscopy Rachana Carter RN Start: 01-31-2023 P[employer]ER-BION[employer] COVID-19 VACCINE ( SEASON) AGE 12+ YR Francisco Javier Osorio MD Work Phone: Start: 12-16-2022 INFLUENZA VACCINE, AGE 6 MO - 64 YR, QUADRIVALENT (AFLURIA, FLULAVAL, FLUZONE) Catarina Older ACCOUNTS RECEIVABLE MANAGER.CERTIFIED CAREGIVER Work Phone: Start: 12-16-2022 Lipid 1996 panel - Serum or Plasma Catarina Older ACCOUNTS RECEIVABLE MANAGER.CERTIFIED CAREGIVER Work Phone: Start: 01-11-2022 INFLUENZA VACCINE QUADRIVALENT 6 MO - 64 YRS IM Catarina Older ACCOUNTS RECEIVABLE MANAGER.CERTIFIED CAREGIVER Work Phone: Start: 01-11-2022 PFI[employer]ER-BIONTECH COVID-19 BIVALENT BOOSTER VACCINE, AGE 12+ YR Catarina Older ACCOUNTS RECEIVABLE MANAGER.CERTIFIED CAREGIVER Work Phone: Start: 07-01-2020 Radiologic exam abdomen 2 views Catarinaamanda Nieves ACCOUNTS RECEIVABLE MANAGER.CERTIFIED CAREGIVER Work Phone: Plan of Treatment Date Care Activity Detail Author Start: 02-17-2033 Screening for malignant neoplasm of colon [facility] Start: 07-19-2029 Lipid panel Lipid Screening [facility] Start: 04-02-2028 Urine microalbumin profile [facility] Start: 12-17-2027 Lipid 1996 panel - Serum or Plasma Lipid Screening [facility] Start: 12-17-2027 Lipid panel Lipid Screening [facility] Start: 07-20-2027 Diabetes Screening Diabetes Screening [facility] Start: 10-31-2026 Diabetes Screening Diabetes Screening [facility] Start: 12-16-2025 Diabetes Screening Diabetes Screening [facility] Start: 2025 Shingles (RZV) Vaccine (1 of 2) Shingles (RZV) Vaccine (1 of 2) [facility] Start: 01-24-2025 End: 01-24-2025 Patient encounter procedure 01/24/2025 5:20 PM EDT Office Visit [facility] [address] [place], [place] [id number] Francisco Javier Osorio MD [address] [place], [place] [id number] 6 month follow up [facility] Medicine [place] Comment on above: 6 month follow up Start: 01-17-2025 End: 01-17-2025 Patient encounter procedure [facility] (ENT) Comment on above: Hearing aid consult Start: 01-16-2025 LIPID SCREEN LIPID SCREEN [facility] Start: 01-09-2025 End: 04-10-2025 Basic metabolic 2000 panel - Serum or Plasma BASIC METABOLIC PANEL Lab Routine Impaired fasting glucose Expected: 01/09/2025, Expires: 04/10/2025 [facility] Work Phone: Comment on above: Expected: 01/09/2025, Expires: Start: 01-09-2025 End: 04-10-2025 CBC panel - Blood by Automated count COMPLETE BLOOD COUNT Lab Routine Impaired fasting glucose Expected: 01/09/2025, Expires: 04/10/2025 [facility] Comment on above: Expected: 01/09/2025, Expires: Start: 01-09-2025 End: 04-10-2025 Hemoglobin A1c in Blood HEMOGLOBIN A1C Lab Routine Impaired fasting glucose Expected: 01/09/2025, Expires: 04/10/2025 [facility] Comment on above: Expected: 01/09/2025, Expires: Start: 12-10-2024 Influenza vaccination Influenza Vaccine (#1) [place] [facility] Start: 10-23-2024 End: 10-23-2024 Patient encounter procedure 10/23/2024 3:30 PM EDT Office Visit Urology [address] [place] [address] Magan Lake PA-C [address] [place] [address] Erectile Dysfunction, Urinary symptoms. Urology Comment on above: Erectile Dysfunction, Urinary symptoms. Start: 10-22-2024 End: 10-22-2024 Patient encounter procedure 10/22/2024 3:30 PM EDT Office Visit Urology [address] [place] [address] Jonathan Foster APRN.CERTIFIED CAREGIVER, DNP [address] [place] [address] Erectile Dysfunction, Urinary symptoms. Urology Comment on above: Erectile Dysfunction, Urinary symptoms. Start: 09-25-2024 End: 09-25-2024 Patient encounter procedure General Surgery Comment on above: Consult for colonoscopy CONSULT: Colonoscopy with path last 02/17/2023. [facility] Start: 08-20-2024 End: 08-20-2024 Patient encounter procedure 08/20/2024 7:20 AM EDT Office Visit Internal Medicine [place] [address] [place] [address] Catarina Nieves ACCOUNTS RECEIVABLE MANAGER.CERTIFIED CAREGIVER [address] [place] [address] Earache. Requesting ATB. Currently out of state. Returning Tuesday. [facility] [place] Comment on above: Earache. Requesting ATB. Currently out o f state. Returning Tuesday. Start: 07-30-2024 End: 07-21-2025 Comprehensive metabolic 2000 panel - Serum or Plasma COMPREHENSIVE METABOLIC PANEL Lab Routine Hyperlipidemia, unspecified hyperlipidemia type Expected: 07/30/2024, Expires: 10/29/2024 [facility] Work Phone: Comment on above: Expected: 07/30/2024, Expires: Start: 07-30-2024 End: 10-29-2024 Lipid 1996 panel - Serum or Plasma LIPID PANEL BASIC Lab Routine Hyperlipidemia, unspecified hyperlipidemia type Expected: 07/30/2024, Expires: 10/29/2024 [facility] Comment on above: Expected: 07/30/2024, Expires: Start: 07-30-2024 End: 07-30-2024 ambulatory 07/30/2024 7:30 AM EDT Results Only [facility] [address] [facility] [place] [address] [facility] Start: 07-27-2024 End: 07-27-2024 Patient encounter procedure 07/27/2024 2:15 PM EDT Office Visit [facility] [address] [place] [address] [place] [address] [place] [address] 3 month f/u: rash Dermatology [facility] Comment on above: 3 month f/u: rash Start: 07-27-2024 End: 07-27-2024 Patient encounter procedure 07/27/2024 11:20 AM EDT Office Visit [facility] Medicine [place] [address] [facility] [place] [address] Francisco Javier Osorio MD [address] [facility] [place] [id number] 6 Month F/U [facility] Medicine [place] Comment on above: 6 Month F/U Start: 07-26-2024 End: 07-26-2024 Patient encounter procedure 07/26/2024 5:20 PM EDT Office Visit [facility] Medicine [facility] [address] [place] [address] Francisco Javier Osorio MD [address] [facility] [place] [address] 6 Month F/U [facility] Medicine [place] Comment on above: 6 Month F/U Start: 07-23-2024 End: 07-23-2024 ambulatory 07/23/2024 7:00 AM EDT Results Only [facility] [address] [facility] [place] [address] Labs [facility] Comment on above: Labs Start: 07-06-2024 End: 07-06-2024 ambulatory 07/06/2024 9:00 AM EDT OT/PT/Speech Visit [facility] Physical Therapy [address] [place] [address] Enoc Bynum PT H92.02 (ICD-10-CM) - Referred otalgia of left ear [facility] Comment on above: H92.02 (ICD-10-CM) - Referred otalgia of left ear Start: 06-01-2024 End: 06-01-2024 ambulatory 06/01/2024 7:30 AM EST OT/PT/Speech Visit [facility] [address] [place] [address] Enoc Bynum, PT Achilles tendinitis of left lower extremity [M76.62] [facility] Comment on above: Achilles tendinitis of left lower extrem ity [M76.62] Start: 05-16-2024 End: 05-16-2024 ambulatory 05/16/2024 9:45 AM EST OT/PT/Speech Visit [facility] Therapy [address] [place] [address] Enoc Bynum PT Achilles tendinitis of left lower extremity [M76.62] [facility] Comment on above: Achilles tendinitis of left lower extrem ity [M76.62] Start: 05-10-2024 End: 05-10-2024 Patient encounter procedure 05/10/2024 8:00 AM EST Office Visit Orthopaedics [address] [place] [address] Carmen Rojas MD [address] [place] [address] 7 WK F/U- DOS 01/31 Orthopaedics Comment on above: 7 WK F/U- DOS 01/31 Start: 05-04-2024 End: 05-04-2024 ambulatory 05/04/2024 7:30 AM EST OT/PT/Speech Visit [facility] Therapy [address] [place] [address] Enoc Bynum PT Achilles tendinitis of left lower extremity [M76.62] [facility] Comment on above: Achilles tendinitis of left lower extrem ity [M76.62] Start: 04-27-2024 End: 04-27-2024 Patient encounter procedure 04/27/2024 2:45 PM EST Office Visit Dermatology [facility] [address] [place] [address] [place] [address] [place] [address] Dry skin Dermatology [facility] Comment on above: Dry skin Start: 04-23-2024 End: 04-23-2024 Patient encounter procedure 04/23/2024 3:30 PM EST Office Visit Urology [address] [place] [address] Jonathan Foster APRN.[facility], DNP [address] [place] [address] 3 month f/u Urology Comment on above: 3 month f/u Start: 04-17-2024 End: 04-17-2024 Patient encounter procedure 04/17/2024 8:45 AM EST Office Visit Orthopaedics [address] [place] [address] Carmen Rojas MD [address] [place] [address] wound check Orthopaedics Comment on above: wound check Start: 04-13-2024 End: 04-13-2024 ambulatory 04/13/2024 7:30 AM EST OT/PT/Speech Visit [facility] Physical Therapy [address] [place] [address] Enoc Bynum, PT M25.572,G89.29 (ICD-10-CM) - Chronic pain of left ankle Procedures: [facility] Comment on above: M25.572,G89.29 (ICD-10-CM) - Chronic terry n of left ankle Procedures: Start: 04-09-2024 End: 04-09-2024 Patient encounter procedure 04/09/2024 1:00 PM EST Office Visit Otolaryngology [address] [place] [address] [place] [address] [place] [address] ETD Otolaryngology Comment on above: ETD Start: 04-06-2024 End: 04-06-2024 ambulatory 04/06/2024 1:45 PM EST OT/PT/Speech Visit [facility] Therapy [address] [place] [address] Enoc Bynum, PT M25.572,G89.29 (ICD-10-CM) - Chronic pain of left ankle [facility] Comment on above: M25.572,G89.29 (ICD-10-CM) - Chronic terry n of left ankle Start: 03-30-2024 End: 03-30-2024 Patient encounter procedure 03/30/2024 7:40 AM EST Office Visit Dermatology [address] [place], [place] [id number] Mirna Keith PA-C [address] [place] [address] Dry, bleeding in private area Dermatology Comment on above: Dry, bleeding in private area Start: 03-28-2024 End: 03-28-2024 ambulatory 03/28/2024 3:30 PM EST OT/PT/Speech Visit [facility] Therapy [address] [place] [address] Enoc Bynum, PT M25.572,G89.29 (ICD-10-CM) - Chronic pain of left ankle Procedures: [facility] Therapy Comment on above: M25.572,G89.29 (ICD-10-CM) - Chronic terry n of left ankle Procedures: Start: 03-15-2024 End: 03-15-2024 Patient encounter procedure 03/15/2024 8:00 AM EST Office Visit Orthopaedics [address] [place] [address] Carmen Rojas MD [address] [place] [address] 3 WEEK F/U- DOS 01/31 Orthopaedics Comment on above: 3 WEEK F/U- DOS 01/31 Start: 02-29-2024 End: 02-29-2024 Patient encounter procedure 02/29/2024 8:30 AM EST Office Visit Urology [address] [address] Sebastien Petty MD [address] [place] [address] cysto/trus Urology Comment on above: cysto/trus Start: 02-27-2024 End: 02-27-2024 Patient encounter procedure 02/27/2024 9:30 AM EST Office Visit [facility] (ENT) [address] [place] [phone] Latisha Birmingham PA-C [address] [place], [place] [phone] 1 mn f/u for ears [facility] (ENT) Comment on above: 1 mn f/u for ears Start: 02-23-2024 End: 02-23-2024 Nursing evaluation of patient and report 02/23/2024 2:00 PM EST Nurse Visit Orthopaedics [address] [place], [place] [id number] Pato Lucas, DANYN [address] [place] [address] CAST OFF PATO 2 WEEK F/U- DOS 01/31 Orthopaedics Comment on above: CAST OFF PATO 2 WEEK F/U- DOS 01/31 Start: 02-23-2024 End: 02-23-2024 Patient encounter procedure Cat Scan Comment on above: Bladder wall thickening [N32.89] CAST OFF PATO Start: 02-21-2024 End: 02-21-2024 Patient encounter procedure 02/21/2024 9:20 AM EST Appointment Radiology [address] [place] [address] H90.42 (ICD-10-CM) - Sensorineural hearing loss (SNHL) of left ear with unrestricted hearing of right ear Radiology Comment on above: H90.42 (ICD-10-CM) - Sensorineural heari ng loss (SNHL) of left ear with unrestricted hearing of right ear Start: 02-18-2024 Colonoscopy Colonoscopy [facility] Start: 02-18-2024 Colorectal Cancer Screening Colorectal Cancer Screening [facility] Start: 02-18-2024 Screening for malignant neoplasm of colon [facility] Start: 02-13-2024 End: 02-13-2024 Patient encounter procedure 02/13/2024 3:30 PM EST Office Visit General Surgery [address] [place], [place] [id number] Jonathan Nielsen MD [address] [place] [address] CONSULT COLONOSCOPY General Surgery Comment on above: CONSULT COLONOSCOPY Start: 02-11-2024 End: 02-11-2024 Patient encounter procedure 02/11/2024 10:00 AM EDT Immunization [facility] [address] [place], [place] [phone] [place], Immunization Clinic Nurse [address] [place], [place] [phone] Flu & COVID [facility] [place] Comment on above: Flu & COVID Start: 02-09-2024 End: 02-09-2024 Nursing evaluation of patient and report 02/09/2024 2:00 PM EDT Nurse Visit Orthopaedics [address] [place] [address] [place] [address] [place] [address] 1 week XOC - DOS 01/31 Orthopaedics Comment on above: 1 week XOC - DOS 01/31 Start: 02-09-2024 End: 02-09-2024 Patient encounter procedure Orthopaedics Comment on above: 1 week XOC - DOS 01/31 Start: 02-03-2024 End: 02-21-2025 CT Kidney WO and W contrast IV CT UROGRAM WO/W IVCON Radiology Routine Bladder wall thickening Expected: 02/03/2024, Expires: 02/21/2025 [facility] Work Phone: Comment on above: Expected: 02/03/2024, Expires: Start: 02-01-2024 End: 02-01-2024 Admission to same day surgery center 02/01/2024 11:00 AM EDT - 02/01/2024 1:00 PM EDT Surgery [facility] [address] [place] [address] Carmen Rojas MD [address] [place] [address] REPAIR ACHILLES TENDON SECONDARY [facility] Comment on [...] physician 02/01/2024 11:00 AM EDT Hospital Encounter [facility] [address] [place] [address] Sandra-Carmen Myles MD [address] [place] [address] Achilles tendinitis of left lower extremity [M76.62] [facility] Comment on above: Achilles tendinitis of left [...] 5:20 PM EDT Office Visit Internal Medicine [place] [address] [place] [address] Francisco Javier Osorio MD [address] [place] [address] 3 month follow-up Internal Medicine [place] Comment on above: 3 month follow-up Start: 01-26-2024 COLOGUARD (FIT-DNA) COLOGUARD (FIT-DNA) [facility] Start: 01-26-2024 COLORECTAL CANCER SCREENING COLORECTAL CANCER SCREENING [facility] Start: 01-26-2024 Screening for malignant neoplasm of colon Cologuard (FIT-DNA) [facility] Start: 01-23-2024 End: 04-23-2024 PSA/PROSTATE SPECIFIC ANTIGEN SCREENING [facility] Comment on above: Expected: 01/23/2024, Expires: Start: 01-23-2024 End: 01-23-2024 Patient encounter procedure 01/23/2024 9:00 AM EDT Office Visit Urology [address] [place] [address] Jonathan Foster APRN.CERTIFIED CAREGIVER, DNP [address] [place] [address] thickening of bladder wall, leakage Urology Comment on above: thickening of bladder wall, leakage Start: 01-20-2024 End: 01-20-2024 Anesthesia consultation 01/20/2024 7:30 AM EDT PAT Pre Anesthesia [address] [place] [address] PAC Virtual [phone] Pre Anesthesia Comment on above: PAC Virtual [phone] Start: 01-19-2024 End: 01-19-2024 Patient encounter procedure 01/19/2024 1:30 PM EDT Office Visit [facility] (ENT) [address] [place] [phone] Latisha Birmingham PA-C [address] [place] [address] Other infective acute otitis externa of both ears [H60.393] [facility] (ENT) Comment on above: Other infective acute otitis externa of both ears [H60.393] Start: 01-18-2024 End: 01-18-2024 Anesthesia consultation 01/18/2024 10:40 AM EDT PAT Pre Anesthesia [address] [place] [address] 1, Pac [place] [address] [place] [address] pre op testing - dos 01/31 Pre Anesthesia Comment on above: pre op testing - dos 01/31 Start: 01-18-2024 End: 01-18-2024 ambulatory 01/18/2024 9:00 AM EDT OT/PT/Speech Visit [facility] [address] [place] [address] Jose Raul Ochoa, PT [address] [place] [address] pre op crutch training - dos 01/31 [facility] Comment on above: pre op crutch training - dos 01/31 Start: 01-11-2024 End: 01-11-2024 Patient encounter procedure 01/11/2024 9:00 AM EDT Office [place] [address] DOS 01/31 [facility] Comment on above: DOS 01/31 Start: 01-10-2024 Influenza vaccination Influenza Vaccine (#1) [facility] Start: 01-09-2024 End: 01-09-2024 Patient encounter procedure 01/09/2024 3:15 PM EDT Office Visit General Surgery [address] [place] [address] Jonathan Nielsen MD [address] [place] [address] CONSULT COLONOSCOPY- ok to reschedule per Alex in office General Surgery Comment on above: CONSULT COLONOSCOPY- ok to reschedule pe r Alex in office Start: 12-19-2023 End: 12-19-2023 ambulatory 12/19/2023 8:15 AM EDT OT/PT/Speech Visit [facility] Therapy [address] [place] [address] Enoc Bynum, PT M25.572,G89.29 (ICD-10-CM) - Chronic pain of left ankle P [facility] Comment on above: M25.572,G89.29 (ICD-10-CM) - Chronic terry n of left ankle P Start: 12-13-2023 End: 12-13-2023 ambulatory 12/13/2023 8:00 AM EDT OT/PT/Speech Visit [facility] [address] [place] [address] Ca Johansen, CLAIMS ADJUSTER SUPERVISOR [address] [place] [address] M25.572,G89.29 (ICD-10-CM) - Chronic pain of left ankle P [facility] Comment on above: M25.572,G89.29 (ICD-10-CM) - Chronic terry n of left ankle P Start: 12-11-2023 Covid-19 Vaccine ( season) Covid-19 Vaccine () [facility] Start: 12-11-2023 Influenza vaccination Influenza Vaccine (#1) [facility] Start: 12-08-2023 End: 12-08-2023 Patient encounter procedure 12/08/2023 8:00 AM EDT Office Visit Orthopaedics [address] [place] [address] Carmen Rojas MD [address] [place] [address] Consultation for Left Achilles Tendon suregery - referred by Dr. Mcmahan; Xrays and MRI in [facility] Orthopaedics Comment on above: Consultation for Left Achilles Tendon sousa regery - referred by Dr. Mcmahan; Xrays and MRI in [facility] Start: 12-05-2023 End: 12-05-2023 ambulatory 12/05/2023 8:15 AM EDT OT/PT/Speech Visit [facility] [address] [place] [address] Enoc Bynum, PT M25.572,G89.29 (ICD-10-CM) - Chronic pain of left ankle P [facility] Comment on above: M25.572,G89.29 (ICD-10-CM) - Chronic terry n of left ankle P Start: 11-25-2023 End: 11-25-2023 ambulatory 11/25/2023 10:15 AM EDT OT/PT/Speech Visit [facility] [address] [place] [address] Ca Johansen, CLAIMS ADJUSTER SUPERVISOR [address] [place] [address] M25.572,G89.29 (ICD-10-CM) - Chronic pain of left ankle P [facility] Comment on above: M25.572,G89.29 (ICD-10-CM) - Chronic terry n of left ankle P Start: 11-14-2023 End: 11-14-2023 ambulatory 11/14/2023 9:00 AM EDT OT/PT/Speech Visit [facility] [address] [place] [address] Enoc Bynum, PT Chronic pain of left ankle [M25.572, G89.29] [facility] Comment on above: Chronic pain of left ankle [M25.572, G89 .29] Start: 11-14-2023 End: 11-14-2023 Patient encounter procedure 11/14/2023 8:00 AM EDT Appointment Radiology [address] [place] [address] Chronic pain of left ankle [M25.572, G89.29] Radiology Comment on above: Chronic pain of left ankle [M25.572, G89 .29] Start: 11-13-2023 Hepatitis A Vaccine (3 of 3 - Hep A Twinrix risk 3-dose series) Hepatitis A Vaccine (3 of 3 - Hep A Twinrix risk 3-dose series) [facility] Start: 11-13-2023 Hepatitis B Vaccine (3 of 3 - Hep B Twinrix 3-dose series) Hepatitis B Vaccine (3 of 3 - Hep B Twinrix 3-dose series) [facility] Start: 11-07-2023 End: 11-07-2023 Patient encounter procedure 11/07/2023 1:30 PM EDT Office Visit Neurology [address] [place] [address] History of seizure [Z87.898] Neurology Comment on above: History of seizure [Z87.898] Start: 11-01-2023 End: 11-01-2023 ambulatory 11/01/2023 3:00 PM EDT OT/PT/Speech Visit [facility] [address] [place] [address] Enoc Bynum, PT Chronic pain of left ankle [M25.572, G89.29] [facility] Comment on above: Chronic pain of left ankle [M25.572, G89 .29] Start: 10-31-2023 End: 10-31-2023 Patient encounter procedure 10/31/2023 6:00 PM EDT Office Visit Internal Medicine [place] [address] [facility] [place] [address] Francisco Javier Osorio MD [address] [facility] [place] [address] Yearly w/6 month follow-up Internal Medicine [place] Comment on above: Yearly w/6 month follow-up Start: 10-29-2023 Orders Only 10/29/2023 Orders Only Internal Medicine [place] [address] [facility] [place] [address] Francisco Javier Osorio MD [address] [place] [address] Need for vaccination Internal Medicine [place] Comment on above: Need for vaccination Start: 10-25-2023 End: 10-25-2023 ambulatory 10/25/2023 10:00 AM EDT OT/PT/Speech Visit [facility] [address] [facility] [place] [address] Enoc Bynum, PT Chronic pain of left ankle [M25.572, G89.29] [facility] Comment on above: Chronic pain of left ankle [M25.572, G89 .29] Start: 10-10-2023 End: 10-10-2023 Patient encounter procedure Radiology Comment on above: left heel spur xr discuss poosible jovanni osman on left foot Start: 08-22-2023 End: 08-22-2023 Patient encounter procedure 08/22/2023 2:00 PM EDT Office Visit General Surgery [address] [place] [address] Jonathan Nielsen MD [address] [place] [address] post op bob dp 08/09 General Surgery Comment on above: post op bob dp 08/09 Start: 08-10-2023 End: 08-10-2023 Admission to same day surgery center 08/10/2023 8:56 AM EDT - 08/10/2023 10:10 AM EDT Surgery [facility] [address] [place] [address] Jonathan Nielsen MD [address] [place] [address] DESTRUCTION OF ANAL CONDYLOMA VIA ELECTRODESICCATION SIMPLE [facility] Comment on above: DESTRUCTION OF ANAL CONDYLOMA VIA ELECTR ODESICCATION SIMPLE Start: 08-10-2023 End: 08-10-2023 Dstrj lesion anus smpl eltrdsiccation DESTRUCTION OF ANAL CONDYLOMA VIA ELECTRODESICCATION SIMPLE Anal warts 08/10/2023 8:56 AM EDT ME OR Start: 08-10-2023 Subsequent hospital visit by physician [facility] Comment on above: Anal warts [A63.0] Start: 12-16-2022 End: 02-15-2023 C reactive protein [Mass/volume] in Serum or Plasma C-REACTIVE PROTEIN (CRP) Lab Routine Pain in joint involving multiple sites Psoriasis Expected: 12/16/2022, Expires: 02/15/2023 [facility] Work Phone: Comment on above: Expected: 12/16/2022, Expires: 3 Start: 12-16-2022 End: 02-15-2023 CBC panel - Blood by Automated count [facility] Work Phone: Comment on above: Expected: 12/16/2022, Expires: 3 Start: 12-16-2022 End: 02-15-2023 Comprehensive metabolic 2000 panel - Serum or Plasma [facility] Work Phone: Comment on above: Expected: 12/16/2022, Expires: 3 Start: 12-16-2022 End: 02-15-2023 Erythrocyte sedimentation rate SED RATE WESTERGREN Lab Routine Pain in joint involving multiple sites Psoriasis Expected: 12/16/2022, Expires: 02/15/2023 [facility] Work Phone: Comment on above: Expected: 12/16/2022, Expires: 3 Start: 12-16-2022 End: 02-15-2023 Hemoglobin A1c in Blood [facility] Work Phone: Comment on above: Expected: 12/16/2022, Expires: 3 Start: 12-16-2022 End: 02-15-2023 Lipid 1996 panel - Serum or Plasma [facility] Work Phone: Comment on above: Expected: 12/16/2022, Expires: 3 Start: 12-16-2022 End: 02-15-2023 TESTOSTERONE, FREE AND TOTAL [facility] Work Phone: Comment on above: Expected: 12/16/2022, Expires: 3 Start: 12-16-2022 End: 02-15-2023 Thyrotropin [Units/volume] in Serum or Plasma [facility] Work Phone: Comment on above: Expected: 12/16/2022, Expires: 3 Start: 12-10-2022 COVID-19 Vaccine ( season) COVID-19 Vaccine ( season) [facility] Start: 12-10-2022 Influenza vaccination INFLUENZA (#1) [facility] Start: 11-27-2022 DIABETES SCREEN DIABETES SCREEN [facility] Start: 01-11-2022 End: 03-13-2022 Comprehensive metabolic 2000 panel - Serum or Plasma COMP METABOLIC PANEL Lab Routine Obesity, Class I, BMI 30-34.9 Expected: 01/11/2022, Expires: 03/13/2022 [facility] Work Phone: Comment on above: Expected: 01/11/2022, Expires: 2 Start: 01-11-2022 End: 03-13-2022 Lipid 1996 panel - Serum or Plasma LIPID PANEL BASIC Lab Routine Obesity, Class I, BMI 30-34.9 Expected: 01/11/2022, Expires: 03/13/2022 [facility] Work Phone: Comment on above: Expected: 01/11/2022, Expires: 2 Start: 12-10-2021 Influenza vaccination INFLUENZA (#1) [facility] Start: 08-04-2021 End: 10-04-2021 Chronic hepatitis differentiation between hepatitis B and C virus panel - Serum or Plasma HEP REMOTE PANEL BL Lab Routine Positive hepatitis C antibody test Expected: 08/04/2021, Expires: 10/04/2021 [facility] Work Phone: Comment on above: Expected: 08/04/2021, Expires: 2 Start: 08-04-2021 End: 10-04-2021 HEPATIC FUNCTION PNL HEPATIC FUNCTION PNL Lab Routine Positive hepatitis C antibody test Expected: 08/04/2021, Expires: 10/04/2021 [facility] Work Phone: Comment on above: Expected: 08/04/2021, Expires: 2 Start: 02-17-2020 COLOGUARD (FIT-DNA) COLOGUARD (FIT-DNA) [facility] Start: 02-17-2020 Colonoscopy COLONOSCOPY [facility] Start: 02-17-2020 COLORECTAL CANCER SCREENING COLORECTAL CANCER SCREENING [facility] Start: 02-17-[address] COLONOGRAPHY [facility] Start: 02-17-2020 FECAL OCCULT BLOOD FECAL OCCULT BLOOD [facility] Start: 02-17-2020 [facility] Start: 02-17-2020 SIGMOIDOSCOPY SIGMOIDOSCOPY [facility] Start: 01-10-2020 Influenza vaccination Influenza Vaccine (#1) [facility] Start: 02-15-2018 Cholesterol [Mass/Vol] Cholesterol [facility] Start: 02-15-2018 Lipid panel Cholesterol [facility] Start: 1994 HEPATITIS A (1 of 2 - Risk 2-dose series) HEPATITIS A (1 of 2 - Risk 2-dose series) [facility] Start: 1994 Hepatitis A (HAV) Vaccine (1 of 2 - Risk 2-dose series) Hepatitis A (HAV) Vaccine (1 of 2 - Risk 2-dose series) [facility] Start: 1994 Hepatitis A Vaccine (1 of 2 - Risk 2-dose series) Hepatitis A Vaccine (1 of 2 - Risk 2-dose series) [facility] Start: 1994 Hepatitis B vaccination Hepatitis B (HBV) Vaccine (1 of 3 - 19+ 3-dose series) [facility] Start: 1994 TWO PNEUMOVAX 5 YEARS APART PRIOR TO AGE 65 (#1) TWO PNEUMOVAX 5 YEARS APART PRIOR TO AGE 65 (#1) [facility] Start: 1993 Hepatitis C antibody, confirmatory test Hepatitis C Antibody [facility] Start: 1993 Hepatitis C screening Hepatitis C Antibody [facility] Start: 1993 Tetanus + diphtheria + acellular pertussis vaccine (product) Tdap Booster [facility] Start: 02-17-1976 HEPATITIS A (1 of 2 - Risk 2-dose series) HEPATITIS A (1 of 2 - Risk 2-dose series) [facility] Start: 1975 COVID-19 Vaccine (#1) COVID-19 Vaccine (#1) [facility] Start: 1975 HEPATITIS B (1 of 3 - 3-dose series) HEPATITIS B (1 of 3 - 3-dose series) [facility] Start: 1975 Hepatitis B Vaccine (1 of 3 - 3-dose series) Hepatitis B Vaccine (1 of 3 - 3-dose series) [facility] Start: 1975 Screening for malignant neoplasm of colon Colonoscopy [facility] End: 02-02-2024 COLONOSCOPY DIAGNOSTIC COLONOSCOPY DIAGNOSTIC Endoscopy Routine Abdominal pain, left lower quadrant Rectal bleeding 1 Occurrences starting 02/01/2023 until 02/02/2024 [facility] Work Phone: Comment on above: 1 Occurrences starting 02/01/2023 until 02/02/2024 COVID & INFLUENZA A/ B & RSV PCR, ROUTINE COVID & INFLUENZA A/B & RSV PCR, ROUTINE Microbiology Routine Suspected COVID-19 virus infection 12/19/2023 11:31 AM EDT [facility] Work Phone: COVID & INFLUENZA A/ B & RSV PCR, ROUTINE COVID & INFLUENZA A/B & RSV PCR, ROUTINE Microbiology Routine Viral upper respiratory tract infection 03/29/2024 10:36 AM EST [facility] Work Phone: COVID & INFLUENZA A/ B & RSV PCR, ROUTINE COVID & INFLUENZA A/B & RSV PCR, ROUTINE Microbiology Routine Viral URI with cough Flu-like symptoms Ordered: 06/07/2024 [facility] Work Phone: Comment on above: Ordered: 06/07/2024 COVID & INFLUENZA A/ B & RSV PCR, ROUTINE COVID & INFLUENZA A/B & RSV PCR, ROUTINE Microbiology Routine Fever, unspecified fever cause 09/18/2024 4:40 PM EDT [facility] Work Phone: CT Kidney WO and W contrast IV CT UROGRAM WO/W IVCON Radiology Routine Bladder wall thickening 02/23/2024 10:42 AM EST [facility] Work Phone: CYSTO/TRUS ONLY CYSTO/TRUS ONLY Procedures Routine Bladder wall thickening Urgency of urination Mixed stress and urge urinary incontinence Ordered: 01/23/2024 [facility] Comment on above: Ordered: 01/23/2024 Dstrj lesion anus sm pl eltrdsiccation DESTRUCTION OF ANAL CONDYLOMA VIA ELECTRODESICCATION SIMPLE Anal warts ME OR End: 10-31-2024 EPIL EEG ROUTINE EPIL EEG ROUTINE NEUROLOGY Routine History of seizure Seizure disorder (HCC) 1 Occurrences starting 11/01/2023 until 10/31/2024 [facility] Work Phone: Comment on above: 1 Occurrences starting 11/01/2023 until 10/31/2024 End: 04-10-2025 HEARING TEST/AUDIOGRAM HEARING TEST/AUDIOGRAM Audiology Routine Asymmetrical sensorineural hearing loss 1 Occurrences starting 04/09/2024 until 04/10/2025 [facility] Work Phone: Comment on above: 1 Occurrences starting 04/09/2024 until 04/10/2025 End: 03-01-2024 WILLIAN DIAGNOSTIC LEFT WILLIAN DIAGNOSTIC LEFT Radiology Routine Subareolar mass of left breast 1 Occurrences starting 01/31/2023 until 03/01/2024 [facility] Work Phone: Comment on above: 1 Occurrences starting 01/31/2023 until 03/01/2024 End: 11-08-2024 MR Ankle - left WO contrast MRI ANKLE WO IVCON LEFT Radiology Routine Chronic pain of left ankle 1 Occurrences starting 10/10/2023 until 11/08/2024 [facility] Work Phone: Comment on above: 1 Occurrences starting 10/10/2023 until 11/08/2024 End: 02-17-2025 MR Brain WO and W contrast IV MRI BRAIN WO/W IVCON Radiology Routine Sensorineural hearing loss (SNHL) of left ear with unrestricted hearing of right ear 1 Occurrences starting 01/19/2024 until 02/17/2025 [facility] Work Phone: Comment on above: 1 Occurrences starting 01/19/2024 until 02/17/2025 POST VOID RESIDUAL POST VOID RES IDUAL Procedures Routine Bladder wall thickening Ordered: 01/23/2024 [facility] Comment on above: Ordered: 01/23/2024 Removal impacted cer umen instrumentation unilat [facility] MGMT EAR WAX REMOVA Procedures Routine Impacted cerumen of left ear Ordered: 09/24/2021 [facility] Work Phone: Comment on above: Ordered: 09/24/2021 SURGICAL PATHOLOGY [facility] Work Phone: Comment on above: Release Upon Ordering for 1 Occurrences starting 02/17/2023, 1 completed SURGICAL PATHOLOGY [facility] Work Phone: Comment on above: Release Upon Ordering for 1 Occurrences starting 04/27/2024 End: 03-01-2024 US BREAST LTD LEFT US BREAST LTD LEFT Radiology Routine Subareolar mass of left breast 1 Occurrences starting 01/31/2023 until 03/01/2024 [facility] Work Phone: Comment on above: 1 Occurrences starting 01/31/2023 until 03/01/2024 XR Foot - left AP an d Lateral and oblique XR FOOT GENERAL 3V AP/LAT/OBL LEFT Radiology Routine Pain in left foot 10/10/2023 10:47 AM EDT [facility] Work Phone: [facility] Immunizations Immunization Date Immunization Notes Care Provider Vielka henry 02-11-2024 COVID-19 vaccine, ag e 12+ yr (PFIZER-BIONTECH COMIRNATY) Immunization [place] Work Phone: [facility] 02-11-2024 influenza, seasonal, injectable Immunization [place] Work Phone: [facility] 02-11-2024 influenza virus vaccine, unspecified formulation Jonathan Nielsen MD Work Phone: [facility] 01-30-2024 hepatitis A and hepatitis B vaccine Francisco Javier Osorio MD Work Phone: [facility] 06-13-2023 hepatitis A and hepatitis B vaccine Robyn Perdue ACCOUNTS RECEIVABLE MANAGER.SALES PROJECT ENGINEER Work Phone: [facility] 05-02-2023 hepatitis A and hepatitis B vaccine Robyn Perdue ACCOUNTS RECEIVABLE MANAGER.SALES PROJECT ENGINEER Work Phone: [facility] 01-31-2023 COVID-19 vaccine, ag e 12+ yr, season (PFIZER-BIONTECH) Francisco Javier Osorio MD Work Phone: [facility] Work Phone: 12-16-2022 influenza, injectable, quadrivalent, contains preservative Catarina Older ACCOUNTS RECEIVABLE MANAGER.CERTIFIED CAREGIVER Work Phone: [facility] 12-16-2022 influenza virus vaccine, unspecified formulation Xr Mob Work Phone: [facility] 01-11-2022 COVID-19 booster vaccine, age 12+ yr, bivalent (PFIZER-BIONTECH) Catarina Older ACCOUNTS RECEIVABLE MANAGER.CERTIFIED CAREGIVER Work Phone: [facility] 01-11-2022 influenza, injectable, quadrivalent, contains preservative Catarina Older ACCOUNTS RECEIVABLE MANAGER.CERTIFIED CAREGIVER Work Phone: [facility] 12-23-2020 influenza, injectable, quadrivalent, contains preservative Francisco Javier Osorio MD Work Phone: [facility] Work Phone: 12-23-2020 pneumococcal conjugate vaccine, 13 valent Francisco Javier Osorio MD Work Phone: [facility] Work Phone: 07-31-2020 COVID-19 vaccine, full dose (MODERNA) Francisco Javier Osorio MD Work Phone: [facility] Work Phone: 07-03-2020 COVID-19 vaccine, full dose (MODERNA) Francisco Javier Osorio MD Work Phone: [facility] Work Phone: 01-16-2020 influenza, injectable, quadrivalent, contains preservative Francisco Javier Osorio MD Work Phone: [facility] 01-29-2019 influenza, injectable, quadrivalent, contains preservative Francisco Javier Osorio MD Work Phone: [facility] Work Phone: 04-02-2018 tetanus toxoid, reduced diphtheria toxoid, and acellular pertussis vaccine, adsorbed Francisco Javier Osorio MD Work Phone: [facility] Work Phone: 02-13-2013 influenza nasal, unspecified formulation Francisco Javier Osorio MD Work Phone: [facility] Work Phone: 02-13-2013 influenza virus vaccine, unspecified formulation Jake Conrad [facility] Payers Date Payer Category Payer Self-pay 2021 [facility] Health [facility] [id number] 2021-Present [phone] [address] [place] [id number] [facility] [id number] 2021 Private Health Insurance [id number] 2021 Private Health Insurance [id number] 2017 Unknown [id number] Unknown ANTHEM - BLUE CR OSS BLUE CROSS/HMO,PPO,POS [id number] Effective for all dates [place], [place] PPO [id number] Unknown [id number] Unknown [id number] Unknown [id number] Unknown [id number] Unknown [id number] Social History Date Type Detail Facility Start: 02-13-2013 End: 01-11-2022 Tobacco smoking status NHIS Never smoker [facility] Start: 02-13-2013 Alcohol intake Current non-drinker of alcohol (finding) [facility] Start: 1975 Sex Assigned At Not on file [facility] Start: 06-03-2017 End: 01-11-2022 Tobacco use and exposure Smokeless tobacco non-user [facility] Start: 06-25-2021 End: 09-17-2024 Alcohol intake Current drinker of alcohol (finding) [facility] Start: 06-24-2021 End: 03-11-2022 History SDOH Alcohol Frequency 2 [facility] Start: 06-24-2021 End: 03-11-2022 History SDOH Alcohol Std Drinks 1 [facility] Start: 02-27-2018 History SDOH Alcohol Comment once a month [facility] Start: 06-24-2021 History SDOH Social Connections Phone 5 [facility] Start: 06-24-2021 End: 03-11-2022 History SDOH Social Connections Living 3 [facility] Start: 11-28-2019 Education 16 [facility] Start: 1975 Sex Assigned At Male [facility] Start: 06-01-2020 End: 12-16-2021 Exposure to SARS-CoV-2 (event) Not sure [facility] Work Phone: Start: 03-11-2022 End: 11-04-2022 History of Social function [facility] Start: 03-11-2022 End: 11-04-2022 Social connection and isolation panel [facility] Start: 06-03-2017 In a typical week, how many times do you talk on the telephone with family, friends, or neighbors? Patient refused [facility] Are you now , , , , never or living with a partner? Refused [facility] How often to you hav e a drink containing alcohol? Monthly or less [facility] How many standard dr inks containing alcohol do you have on a typical day? 1 or 2 [facility] How often do you hav e 6 or more drinks on 1 occasion? Never [facility] Do you feel stress - tense, restless, nervous, or anxious, or unable to sleep at night because your mind is troubled all the time - these days [OSQ] Only a little [facility] (I/We) worried wheth er (my/our) food would run out before (I/we) got money to buy more. DK or Refused [facility] Start: 11-28-2019 Gender identity Identifies as male gender (finding) [facility] Start: 11-28-2019 Sexual orientation Homosexual (finding) [facility] Has the [employer], or [employer] threatened to shut off services in your home in past 12Mo No [facility] Do you belong to any clubs or organizations such as protestant groups, unions, fraternal or athletic groups, or school groups? Yes [facility] Are you now , , , , never or living with a partner? [facility] How often to you hav e a drink containing alcohol? 2-3 time sa week [facility] Do you feel stress - tense, restless, nervous, or anxious, or unable to sleep at night because your mind is troubled all the time - these days [OSQ] To some extent [facility] (I/We) worried wheth er (my/our) food would run out before (I/we) got money to buy more. Never true [facility] Medical Equipment Procedure Code Equipment Code Equipment Origin al Text Equipment Identifier Dates System Speedbrid ge Jumpstart [employer] Fixation Sterile Achilles - [id number] Start: 02-01-2024 Clinical Notes 02-27-2018 to 02-13-2025 Telephone Encounter - Essie Anglin COCO - 10/26/2024 9:26 AM EDTTelephone Encounter - Essie AnglinCOCO - 10/26/2024 9:26 AM Allen Montero APRN.CERTIFIED CAREGIVER - 09/18/2024 4:40 PM EDTPatient Instructions Note Date & Type Note Facility 02-13-2025 Note HNO ID: [id number] Author: JONATHAN NIELSEN MD Service: ? Author Type: Physician Type: Progress Notes Filed: 02/13/2025 11:33 Note Text: HISTORY AND PHYSICAL Aston Napoles 1975 REFERRING PHYSICIAN: Self CHIEF COMPLAINT: Follow Up HPI: Aston Napoles is a 49-year-old male presenting for a colonoscopy. Aston reports that he has met his deductible for the year and would like to complete the procedure before the end of the year. He recalls that his last colonoscopy was performed on his birthday, and he used a Miralax-Dulcolax preparation, which he tolerated well. He reports that the preparation was effective and did not cause any nausea or vomiting. The patient is being seen by me today at the request of Dr. Francisco Javier Osorio MD for my opinion and advice regarding Rectal bleeding (primary encounter diagnosis) Anal warts. 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 Impaired fasting glucose 02/07/2025 Mixed stress and urge urinary incontinence KEYLA (obstructive sleep apnea) 04/13/2018 Psoriasis 08/04/2023 [...] HISTORY OF 08/10/2023 DESTRUCTION OF ANAL CONDYLOMA REPAIR ACHILLES TENDON Left 02/01/2024 Left, debridement, repair. Calcaneal exostectomy. SKIN BIOPSY HX TONSILLECTOMY HX 1979 Current Outpatient Medications Medication Sig DULoxetine DR (CYMBALTA) 30 mg capsule Take 1 capsule by mouth once daily. meloxicam (MOBIC) 15 mg tablet Take 1 tablet by mouth daily with food. CPAP Initiate CPAP @ 11 cm of water with humidification. Mask (per patient preference) optional chin strap (if indicated) , filters, tubing, humidifier and lifetime supplies. Dx: KEYLA G47.33 sildenafil (VIAGRA) 50 mg tablet Take 1 tablet by mouth once daily as needed. Take 30-60 minutes before sexual activity. Take on an empty stomach. clotrimazole-betamethasone (LOTRISONE) cream Apply to affected area [...] to 13 cm H2O pressure. Dx: KEYLA CETIRIZINE HCL (ZYRTEC ORAL) Take 1 tablet by mouth two times a day. 10 MG Cholecalciferol, Vitamin D3, (VITAMIN D) 25 mcg (1,000 unit) cap Take 1,000 Units by mouth once daily. (Patient not taking: Reported on 02/11/2025) No current facility-administered medications for this visit. ALLERGIES: Compazine [Prochlorperazine Edisylate] PERSONAL HISTORY: SOCIAL HISTORY[1] FAMILY HISTORY: FAMILY HISTORY Problem Relation Age of Onset Hypertension Mother Heart Attack Father 60 sudden Hypertension Father No Known Problems Sister No Known Problems Brother Colon Cancer Maternal Grandfather 72 Heart disease Paternal Grandmother Heart disease Paternal Grandfather REVIEW OF SYMPTOMS: The review of systems data was entered by the nurse and reviewed by me There are no exam notes on file for this visit. PHYSICAL EXAMINATION: General: The patient is 49 year old male, well nourished, well hydrated in no acute distress. The patient is oriented to time, place, and person. VITALS: Blood pressure 149/97, pulse 74, weight 99.8 kg (220 lb), SpO2 96%. Body mass index is 34.46 kg/m?. HEENT: Normal cephalic, ataumatic, pupils are equally [...] Noted RADIOLOGIC STUDIES: As Noted Assessment IMPRESSION: Rectal bleeding (primary enco (more content not included)... [facility] 02-07-2025 Note HNO ID: [id number] Author: FRANCISCO JAVIER OSORIO MD Service: ? Author Type: Physician Type: Progress Notes Filed: 02/07/2025 09:09 Note Text: Subjective Aston Napoles is a 49 year old male. Anxiety and depression were controlled on duloxetine. KEYLA was well controlled with regular CPAP use. We reviewed his labs and impaired fasting glucose was stable. Risk of diabetes mellitus was reviewed. He was out in the cold this weekend and had a cough, left ear pain, fatigue and nasal drainage for a few days. He had no fever, chills, muscle aches, or GI symptoms. He was taking DayQuil and Zyrtec with improvement. Review of Systems Constitutional: Negative for chills and fever. HENT: Positive for congestion. Negative for sore throat. Respiratory: Negative for shortness of breath and wheezing. Cardiovascular: Negative for chest pain and palpitations. Gastrointestinal: Negative. Musculoskeletal: Negative for myalgias. 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 meloxicam (MOBIC) 15 mg tablet Take 1 tablet by mouth daily with food. CPAP Initiate CPAP @ 11 cm of water with humidification. Mask (per patient preference) optional chin strap (if indicated) , filters, tubing, humidifier and lifetime supplies. Dx: KEYLA G47.33 sildenafil (VIAGRA) 50 mg tablet Take 1 tablet by mouth once daily as needed. Take 30-60 minutes before sexual activity. Take on an empty stomach. Cholecalciferol, Vitamin D3, (VITAMIN D) 25 mcg (1,000 unit) cap Take 1,000 Units by mouth once daily. clotrimazole-betamethasone (LOTRISONE) cream [...] to 13 cm H2O pressure. Dx: KEYLA CETIRIZINE HCL (ZYRTEC ORAL) Take 1 tablet by mouth two times a day. 10 MG No current facility-administered medications for this visit. Objective BP 129/88 (BP Site: Left Arm, BP Position: Sitting, BP Cuff Size: Large Adult) Pulse 83 Temp 36.6 ?C (97.9 ?F) (Temporal) Wt 100.2 kg (220 lb 14.4 oz) BMI 34.60 kg/m? Physical Exam Constitutional: General: He is not in acute distress. HENT: Right Ear: Tympanic membrane normal. Left Ear: Tympanic membrane normal. Nose: Congestion present. No rhinorrhea. Mouth/Throat: Mouth: Mucous membranes are moist. Pharynx: Oropharynx is clear. No oropharyngeal exudate or posterior oropharyngeal erythema. Eyes: Conjunctiva/sclera: Conjunctivae normal. Cardiovascular: Rate and Rhythm: Normal rate and regular rhythm. Heart sounds: No murmur heard. No gallop. Pulmonary: Effort: No respiratory distress. Breath sounds: No wheezing, rhonchi or rales. Lymphadenopathy: Cervical: No cervical adenopathy. Neurological: Mental Status: He is alert. Psychiatric: Mood and Affect: Mood normal. Behavior: Behavior normal. Latest Ref Rng 01/11/2025 WBC 3.70 - 11.00 k/uL 6.46 RBC 4.20 - 6.00 m/uL 4.91 Hemoglobin 13.0 - 17.0 g/dL 14.6 Hematocrit 39.0 - 51.0 % 44.4 MCV 80.0 - 100.0 fL 90.4 MCH 26.0 - 34.0 pg 29.7 MCHC 30.5 - 36.0 g/dL 32.9 RDW-CV 11.5 - 15.0 % 13.0 Platelet Count 150 - 400 k/uL 303 MPV 9.0 - 12.7 fL 10.1 Absolute nRBC <0.01 k/uL <0.01 Glucose 74 - 99 mg/dL 101 (H) BUN 9 - 24 mg/dL 18 Creatinine 0.73 - 1.22 mg/dL 0.92 Sodium 136 - 144 mmol/L 140 Potassium 3.7 - 5.1 mmol/L 4.6 Chloride 98 - 107 mmol/L 103 CO2 22 - 30 mmol/L 24 Anion Gap 8 - 15 mmol/L 13 Calcium 8.5 - 10.2 mg/dL 9.6 eGFR >=60 mL/min/1.73m? 102 Hemoglobin A1C 4.3 - 5.6 % 5.3 Estimated Average Glucose mg/dL 105 Legend: (H) High ASSESSMENT/PLAN: 1. Viral upper respiratory tract infection - ICD9: 465.9, ICD10: J06.9 (primary diagnosis) - Discussed viral etiology and rationale for treatment. - Symptomatic treatment with prn analgesia - Supportive care with fluids and rest 2. Impaired fasting glucose - ICD9: 790.21, ICD10: R73.01 - Low carb diet. - HEMOGLOBIN A1C 3. Anxiety and depression - ICD9: 300.00, 311, ICD10: F41.9, F32.A - Controlled. - Continue DULOXETINE. 4. KEYLA (obstructive sleep apnea) - ICD9: 327.23, ICD10: G47.33 - Is patient is reporting good quality sleep with regular CPAP/APAP use? Yes. Continue current treatment settings. Refill supplies when needed. 5. Hyperlipidemia, unspecified hyperlipidemia type - ICD9: 272.4, ICD10: (more content not included)... [facility] 01-17-2025 Note HNO ID: [id number] Author: GERMAN WOODWARD AUD Service: ? Author Type: Leather Worker Type: Progress Notes Filed: 01/17/2025 11:38 Note Text: [facility] January 17, [facility]25 Aston Napoles was seen today for audiometric testing prior to discussing hearing aids. The patient reports no noticeable change in his hearing sensitivity since previous testing. The patient reports difficulty hearing conversations especially in background noise and finds that he asks what? frequently . Previous audiometric testing was completed on 01/19/2024 PHYSICAL EXAMINATION: Otoscopic inspection revealed ear canals free of cerumen bilaterally TEST RESULTS: Audiometric testing revealed improved left pure-tone thresholds at 4000 Hz and above since previous testing. Pure-tone thresholds within normal limits bilaterally. Speech receptionist airline lounge thresholds agree with pure tone thresholds bilaterally. Speech discrimination testing revealed excellent speech understanding ability in the right ear and good in the left. Tympanometry was not completed today. AUDIOGRAM MAY BE VIEWED IN PROCEDURES RECOMMENDATIONS/PLAN: The above test results were discussed with the patient and the following recommendations were made: 1. Use of communication strategies to enhance speech understanding ability 2. Repeat audiometric testing in 6 months, sooner if a change in hearing sensitivity is detected. GISEL Fuller Created using voice recognition software, some errors may have occurred. Corrections may be performed at a later date. [facility] 10-26-2024 Telephone encounter Note Called patient. No answer- left message to call clinic. Patientis scheduled with Dr. Nielsen on Tuesday with note as :Follow up. Follow up for what? If appointment is for colonoscopy screening appointment needs to state and be changed to consult. Essie Anglin LPN [facility] 10-26-2024 Miscellaneous Notes Called patient. No answer- left message to call clinic. Patientis scheduled with Dr. Nielsen on Tuesday with note as :Follow up. Follow up for what? If appointment is for colonoscopy screening appointment needs to state and be changed to consult. Essie Anglin LPN documented in this encounter [facility] 09-18-2024 Note HNO ID: [id number] Author: ALLEN SIEGEL APRN.CERTIFIED CAREGIVER Service: ? Author Type: Nurse Practitioner Type: Progress Notes Filed: 09/18/2024 17:07 Note Text: [facility] Subjective Aston Napoles is a 49 year old male. Patient presents with: Sore Throat: ST, nausea and fever x 1 day Sore Throat Associated symptoms include coughing. Pertinent negatives include no abdominal pain, congestion, diarrhea, shortness of breath or vomiting. Patient is a 49 year old male that went to work this morning had 99.7 fever, was driving home when symptoms significantly got worse. He is having sore throat and nausea. Review of Systems Constitutional: Positive for chills, fatigue and fever. HENT: Positive for sore throat. Negative for congestion and postnasal drip. Respiratory: Positive for cough. Negative for shortness of breath and wheezing. Gastrointestinal: Positive for nausea. Negative for abdominal pain, diarrhea and vomiting. Objective BP 132/76 Pulse (!) 125 Temp (!) 39.1 ?C (102.3 ?F) (Tympanic) Resp 20 Wt 98.3 kg (216 lb 11.4 oz) SpO2 100% BMI 33.94 kg/m? 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 Calcaneal exostectomy. SKIN BIOPSY HX TONSILLECTOMY HX 1979 ALLERGIES Compazine [Prochlorperazine Edisylate] MEDICATIONS DULoxetine (CYMBALTA) 30 mg capsule Take 1 capsule by mouth once daily. meloxicam (MOBIC) 15 mg tablet Take 1 tablet by mouth daily with food. sildenafil (VIAGRA) 50 mg tablet Take 1 tablet by mouth once daily as needed. Take 30-60 minutes before sexual activity. Take on an empty stomach. Cholecalciferol, Vitamin D3, (VITAMIN D) 25 mcg (1,000 unit) cap Take 1,000 Units by mouth once daily. clotrimazole-betamethasone (LOTRISONE) cream [...] mouth two times a day. 10 MG FAMILY HISTORY Problem Relation Age of Onset [...] Comment: once a month Drug use: Never Physical Exam Vitals and nursing note reviewed. Constitutional: General: He is not in acute distress. Appearance: Normal appearance. He is not ill-appearing or toxic-appearing. HENT: Head: Normocephalic and atraumatic. Jaw: No trismus, tenderness, swelling or pain on movement. Right Ear: Tympanic membrane normal. There is no impacted cerumen (Mild cermum movable). Left Ear: Tympanic membrane normal. Nose: Congestion present. Mouth/Throat: Mouth: Mucous membranes are moist. Pharynx: No oropharyngeal exudate or posterior oropharyngeal erythema. Eyes: Pupils: Pupils are equal, round, and reactive to light. Cardiovascular: Rate and Rhythm: Normal rate and regular rhythm. Heart sounds: Normal heart sounds. Pulmonary: Effort: Pulmonary effort is normal. Breath sounds: Normal breath sounds. Abdominal: Tenderness: There is no abdominal tenderness. There is no guarding. Lymphadenopathy: Cervical: No cervical adenopathy. Neurological: Mental Status: He is alert. {ASSESSMENT/PLAN: 1. Fever, unspecified fever caus (more content not included)... [facility] 09-18-2024 Note SARS-COV-2 (AGENT OF COVID-19) RNA: Not detected INFLUENZA A RNA: Not detected INFLUENZA B RNA: Not detected RESPIRATORY SYNCYTIAL VIRUS (RSV) RNA: Not detected [facility] Comment on above: Performed By: #### 9 [id number] ####[facility] LABCLIA [id number] [address] [place] 09-18-2024 History of Present illness Narrative [facility] Subjective Aston Rendonuggs is a 49 year old male. Patient presents with: Sore Throat: ST, nausea and fever x 1 day Sore Throat Associated symptoms include coughing. Pertinent negatives include no abdominal pain, congestion, diarrhea, shortness of breath or vomiting. Patient is a 49 year old male that went to work this morning had 99.7 fever, was driving home when symptoms significantly got worse. He is having sore throat and nausea. Review of Systems Constitutional: Positive for chills, fatigue and fever. HENT: Positive for sore throat. Negative for congestion and postnasal drip. Respiratory: Positive for cough. Negative for shortness of breath and wheezing. Gastrointestinal: Positive for nausea. Negative for abdominal pain, diarrhea and vomiting. 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 Calcaneal exostectomy. SKIN BIOPSY HX TONSILLECTOMY HX 1979 ALLERGIES Compazine [Prochlorperazine Edisylate] MEDICATIONS DULoxetine (CYMBALTA) 30 mg capsule Take 1 capsule by mouth once daily. meloxicam (MOBIC) 15 mg tablet Take 1 tablet by mouth daily with food. sildenafil (VIAGRA) 50 mg tablet Take 1 tablet by mouth once daily as needed. Take 30-60 minutes before sexual activity. Take on an empty stomach. Cholecalciferol, Vitamin D3, (VITAMIN D) 25 mcg (1,000 unit) cap Take 1,000 Units by mouth once daily. clotrimazole-betamethasone (LOTRISONE) cream [...] mouth two times a day. 10 MG FAMILY HISTORY Problem Relation Age of Onset [...] Comment: once a month Drug use: Never Physical Exam Vitals and nursing note reviewed. Constitutional: General: He is not in acute distress. Appearance: Normal appearance. He is not ill-appearing or toxic-appearing. HENT: Head: Normocephalic and atraumatic. Jaw: No trismus, tenderness, swelling or pain on movement. Right Ear: Tympanic membrane normal. There is no impacted cerumen (Mild cermum movable). Left Ear: Tympanic membrane normal. Nose: Congestion present. Mouth/Throat: Mouth: Mucous membranes are moist. Pharynx: No oropharyngeal exudate or posterior oropharyngeal erythema. Eyes: Pupils: Pupils are equal, round, and reactive to light. Cardiovascular: Rate and Rhythm: Normal rate and regular rhythm. Heart sounds: Normal heart sounds. Pulmonary: Effort: Pulmonary effort is normal. Breath sounds: Normal breath sounds. Abdominal: Tenderness: There is no abdominal tenderness. There is no guarding. Lymphadenopathy: Cervical: No cervical adenopathy. Neurological: Mental Status: He is alert. {ASSESSMENT/PLAN: 1. Fever, unspecified fever cause - ICD9: 780.60, ICD10: R50.9 (primary diagnosis) - Tylenol as Needed - IBUPROFEN 600 MG TABLET - STREP A MOLECULAR (POC) - COVID & INFLUENZA A/B & RSV PCR, ROUTINE 2. Viral infection - ICD9: 079.99, ICD10: B34.9 - Discussed viral etiology and rationale for treatment. - Symptomatic treatment with prn analgesia - Supportive care with fluids and rest - The patient may also use OTC cough and cold meds as needed. - Pt has tessalon at home 3. Sore throat - ICD9: 462, ICD10: J02.9 - Group A strep molecular testing negative Allen Siegel APRN.CERTIFIED CAREGIVER Disposition The patient was discharged. Patient present with sudden onset of symptoms of fever, sore throat nausea, and cough in clinic. HE is nontoxic in no acute respiratory distress. Molecular strep negative in clinic, RSV, flu and covid pending. No concerns of pneumonia, acute abdomen, or acute cardiopulmonary process. Patient given ibuprofen in clinic discussed to take tylenol once home. ER if worsening. Patient verbalized understand in agreement with this plan. Patient discharged home. documented in this encounter [facility] 08-17-2024 Telephone encounter Note Patient traveling currently and has been exposed to influenza and asking about medication to be prescribed by provider as the cruise ship wants to charge him $800. Notified patient that medication can't be prescribed without seeing him and prescription for an acute problem can't be sent out of the country. Patient verbalizes understanding and requests to schedule an appointment for Tuesday. Reports his only symptom is left ear infection and he wasn't tested for Influenza but had exposure. Appt scheduled. Kali Bryant RN [facility] 08-17-2024 Miscellaneous Notes Patient traveling currently and has been exposed to influenza and asking about medication to be prescribed by provider as the cruise ship wants to charge him $800. Notified patient that medication can't be prescribed without seeing him and prescription for an acute problem can't be sent out of the country. Patient verbalizes understanding and requests to schedule an appointment for Tuesday. Reports his only symptom is left ear infection and he wasn't tested for Influenza but had exposure. Appt scheduled. Kali Bryant RN documented in this encounter [facility] 07-26-2024 Note HNO ID: [id number] Author: FRANCISCO JAVIER OSORIO MD Service: ? Author Type: Physician Type: Progress Notes Filed: 07/27/2024 08:33 Note Text: This note was created using [employer]riter. Subjective Patient presents with: F/U 6 months: med refills needed Aston Naoples is a 49 year old male. He was completing intensive outpatient therapy at [facility]. His duloxetine was increased but had side effects, so this was reduced to the previous dose. 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 His chronic heel pain resolved. He had residual Achilles pain after surgery last January and requested I take over meloxicam refills. Colorectal screening was flagging, although he had colonoscopy in 2022. After his visit, I reviewed recommendations to return in one year pertinent to treatments done. Review of Systems Constitutional: Negative for fatigue. Respiratory: Negative for shortness of breath. Cardiovascular: Negative. Gastrointestinal: Negative for abdominal pain. Musculoskeletal: Positive for arthralgias. Psychiatric/Behavioral: Negative for dysphoric mood. The patient is not nervous/anxious. 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 Hld (Hyperlipidemia) Psoriasis Vitamin D Deficiency Chronic Heel Pain, Left Achilles Tendinitis of Left Lower Extremity History of Seizures PAST SURGICAL HISTORY Procedure Laterality Date APPENDECTOMY 1998 COLONOSCOPY SCREENING N/A 02/17/2023 future colonoscopies need MAC EXCISION PILONIDAL CYST/SINUS SIMPLE INGUINAL HERNIA REPAIR HX Bilateral 1993 1992 and 1993 each side PAST SURGICAL HISTORY OF 08/10/2023 DESTRUCTION OF ANAL CONDYLOMA SKIN BIOPSY HX TONSILLECTOMY HX 1979 Current Outpatient Medications Medication Sig sildenafil (VIAGRA) 50 mg tablet Take 1 tablet by mouth once daily as needed. Take 30-60 minutes before sexual activity. Take on an empty stomach. Cholecalciferol, Vitamin D3, (VITAMIN D) 25 mcg (1,000 unit) cap Take 1,000 Units by mouth once daily. clotrimazole-betamethasone (LOTRISONE) cream [...] mouth two times a day. 10 MG DULoxetine (CYMBALTA) 30 mg capsule Take 1 capsule by mouth once daily. meloxicam (MOBIC) 15 mg tablet Take 1 tablet by mouth daily with food. No current facility-administered medications for this visit. Objective BP 122/76 (BP Site: Left Arm, BP Position: Sitting, BP Cuff Size: Large Adult) Pulse 102 Resp 12 Ht 170.2 cm (5' 7) Wt 96.3 kg (212 lb 4.9 oz) SpO2 97% BMI 33.25 kg/m? Physical Exam HENT: Head: Normocephalic. Cardiovascular: Rate and Rhythm: Normal rate and regular rhythm. Heart sounds: No murmur heard. No gallop. Pulmonary: Breath sounds: Normal breath sounds. Neurological: Mental Status: He is alert. Psychiatric: Mood and Affect: Mood normal. Latest Ref Rng 07/19/2024 Protein, Total 6.3 - 8.0 g/dL 7.6 Albumin 3.9 - 4.9 g/dL 4.4 Calcium 8.5 - 10.2 mg/dL 9.7 Bilirubin, Total 0.2 - 1.3 mg/dL 0.6 Alkaline Phosphatase 38 - 113 U/L 82 AST 14 - 40 U/L 30 ALT 10 - 54 U/L 40 Glucose 74 - 99 mg/dL 112 (H) BUN 9 - 24 mg/dL 15 Creatinine 0.73 - 1.22 mg/dL 0.97 Sodium 136 - 144 mmol/L 140 Potassium 3.7 - 5.1 mmol/L 4.0 Chloride 98 - 107 mmol/L 103 CO2 22 - 30 mmol/L 23 Anion Gap 8 - 15 mmol/L 14 eGFR >=60 mL/min/1.73m? 96 Cholesterol, Total <200 mg/dL 211 (H) Triglyceride <150 mg/dL 86 HDL Cholesterol >39 mg/dL 42 Non HDL Cholesterol <130 mg/dL 169 (H) Fasting Time hrs 12 VLDL Cholesterol <30 mg/dL 17 TC:HDL Ratio <5.10 5.02 LDL Cholesterol <100 mg/dL 152 (H) LDL:HDL Ratio <2.54 3.62 (H) Legend: (H) High Assessment and Plan 1. Hyperlipidemia, unspecified hyperlipidemia type - ICD9: 272.4, ICD10: E78.5 (primary diagnosis) - Improving control - Counseled on healthy diet and regular exercise - Mediterranean diet discussed briefly. 2. Anxiety and depression - ICD9: 300.00, 311, ICD10: F41.9, F32.A Controlled. Refilled. - DULOXETINE 30 MG CAPSULE,DELAYED RELEASE 3. Achilles tendinitis of left lower extremity - ICD9: 726.71, ICD10: M76.62 Controlled. Refilled. Discussed medication dosage, usage, goals of therapy, and side effects. Do not mix with other NSAIDs. - MELOXICAM (more content not included)... [facility] 07-26-2024 History of Present illness Narrative This note was created using [employer]riter. Subjective Patient presents with: F/U 6 months: med refills needed Aston Napoles is a 49 year old male. He was completing intensive outpatient therapy at [facility]. His duloxetine was increased but had side effects, so this was reduced to the previous dose. 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 His chronic heel pain resolved. He had residual Achilles pain after surgery last January and requested I take over meloxicam refills. Colorectal screening was flagging, although he had colonoscopy in 2022. After his visit, I reviewed recommendations to return in one year pertinent to treatments done. Review of Systems Constitutional: Negative for fatigue. Respiratory: Negative for shortness of breath. Cardiovascular: Negative. Gastrointestinal: Negative for abdominal pain. Musculoskeletal: Positive for arthralgias. Psychiatric/Behavioral: Negative for dysphoric mood. The patient is not nervous/anxious. 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 Hld (Hyperlipidemia) Psoriasis Vitamin D Deficiency Chronic Heel Pain, Left Achilles Tendinitis of Left Lower Extremity History of Seizures PAST SURGICAL HISTORY Procedure Laterality Date APPENDECTOMY 1997 COLONOSCOPY SCREENING N/A 02/17/2023 future colonoscopies need MAC EXCISION PILONIDAL CYST/SINUS SIMPLE INGUINAL HERNIA REPAIR HX Bilateral 1993 1992 and 1993 each side PAST SURGICAL HISTORY OF 08/10/2023 DESTRUCTION OF ANAL CONDYLOMA SKIN BIOPSY HX TONSILLECTOMY HX 1979 Current Outpatient Medications Medication Sig sildenafil (VIAGRA) 50 mg tablet Take 1 tablet by mouth once daily as needed. Take 30-60 minutes before sexual activity. Take on an empty stomach. Cholecalciferol, Vitamin D3, (VITAMIN D) 25 mcg (1,000 unit) cap Take 1,000 Units by mouth once daily. clotrimazole-betamethasone (LOTRISONE) cream [...] mouth two times a day. 10 MG DULoxetine (CYMBALTA) 30 mg capsule Take 1 capsule by mouth once daily. meloxicam (MOBIC) 15 mg tablet Take 1 tablet by mouth daily with food. No current facility-administered medications for this visit. Objective BP 122/76 (BP Site: Left Arm, BP Position: Sitting, BP Cuff Size: Large Adult) Pulse 102 Resp 12 Ht 170.2 cm (5' 7) Wt 96.3 kg (212 lb 4.9 oz) SpO2 97% BMI 33.25 kg/m Physical Exam HENT: Head: Normocephalic. Cardiovascular: Rate and Rhythm: Normal rate and regular rhythm. Heart sounds: No murmur heard. No gallop. Pulmonary: Breath sounds: Normal breath sounds. Neurological: Mental Status: He is alert. Psychiatric: Mood and Affect: Mood normal. Latest Ref Rng 07/19/2024 Protein, Total 6.3 - 8.0 g/dL 7.6 Albumin 3.9 - 4.9 g/dL 4.4 Calcium 8.5 - 10.2 mg/dL 9.7 Bilirubin, Total 0.2 - 1.3 mg/dL 0.6 Alkaline Phosphatase 38 - 113 U/L 82 AST 14 - 40 U/L 30 ALT 10 - 54 U/L 40 Glucose 74 - 99 mg/dL 112 (H) BUN 9 - 24 mg/dL 15 Creatinine 0.73 - 1.22 mg/dL 0.97 Sodium 136 - 144 mmol/L 140 Potassium 3.7 - 5.1 mmol/L 4.0 Chloride 98 - 107 mmol/L 103 CO2 22 - 30 mmol/L 23 Anion Gap 8 - 15 mmol/L 14 eGFR >=60 mL/min/1.73m 96 Cholesterol, Total <200 mg/dL 211 (H) Triglyceride <150 mg/dL 86 HDL Cholesterol >39 mg/dL 42 Non HDL Cholesterol <130 mg/dL 169 (H) Fasting Time hrs 12 VLDL Cholesterol <30 mg/dL 17 TC:HDL Ratio <5.10 5.02 LDL Cholesterol <100 mg/dL 152 (H) LDL:HDL Ratio <2.54 3.62 (H) Legend: (H) High Assessment and Plan 1. Hyperlipidemia, unspecified hyperlipidemia type - ICD9: 272.4, ICD10: E78.5 (primary diagnosis) - Improving control - Counseled on healthy diet and regular exercise - Mediterranean diet discussed briefly. 2. Anxiety and depression - ICD9: 300.00, 311, ICD10: F41.9, F32.A Controlled. Refilled. - DULOXETINE 30 MG CAPSULE,DELAYED RELEASE 3. Achilles tendinitis of left lower extremity - ICD9: 726.71, ICD10: M76.62 Controlled. Refilled. Discussed medication dosage, usage, goals of therapy, and side effects. Do not mix with other NSAIDs. - MELOXICAM 15 MG TABLET 4. Impaired fasting glucose - ICD9: 790.21, ICD10: R73.01 New concern. Risk for diabetes mellitus reviewed. Low carb diet. - BASIC METABOLIC PANEL - HEMOGLOBIN A1C - COMPLETE BLOOD COUNT 5. History of HPV infection - ICD9: V12.09, ICD10: Z86.19 - Patient messaged to schedule follow up with surgery. Francisco Javier Osorio MD documented in this encounter [facility] 07-23-2024 Note HNO ID: [id number] Author: ?, ?, ? Service: ? Author Type: ? Type: Progress Notes Filed: 08/23/2024 03:03 Note Text: Patient is scheduled with Errol Lao on 09/25/24 [facility] 07-23-2024 History of Present illness Narrative Patient is scheduled with Errol Lao on 09/25/24 documented in this encounter [facility] 07-23-2024 Instructions Nicole Pendleton RN - 07/23/2024 10:40 AM EDT COLONOSCOPY BOWEL PREPARATION INSTRUCTIONS MiraLAX Your doctor has scheduled you for a colonoscopy. To have a successful colonoscopy, you must have a clean colon, that is empty. A clean colon allows your doctor to see the entire colon & diagnose issues like polyps or cancer. For doctors, a clean colon is like driving on a prakash day; a dirty colon like driving in a storm. It is very important that you follow these instructions exactly, or your colonoscopy may not be as effective, could be canceled, and you may need to do the bowel prep and colonoscopy again. TRANSPORTATION REQUIREMENTS You are receiving IV sedation. For your safety, a responsible adult escort must accompany you to and from your procedure: Your adult escort MUST be present with you at check-in for your colonoscopy. Your adult escort MUST remain in the endoscopy area until you are discharged. Your adult escort MUST transport you home once you are discharged. You are NOT allowed to operate any form of transportation (i.e. drive a car, bicycle, etc) or leave the Endoscopy Center ALONE. It is not safe to do so. If you cannot meet these requirements, your procedure will be canceled. MEDICATION REQUIREMENTS For your safety, certain medications will need to be stopped or adjusted before you can have your procedure: BLOOD THINNERS: If you take blood thinners, such as Coumadin (warfarin), Plavix (clopidogrel), Ticlid (ticlopidine hydrochloride), Agrylin (anagrelide), Xarelto (Rivaroxaban), Pradaxa (Dabigatran), Eliquis (Apixaban), or Effient (Prasugrel), contact the physician who is prescribing these medications at least 2 weeks prior to your procedure to discuss any necessary adjustments. DIABETES: If you take medications for diabetes, your dosage may need to be adjusted. If you are being treated for diabetes with insulin, diabetic pills, or other injectable medications do not take your REGULAR dose after midnight on the day of your procedure. If you are taking any other types of insulin such as Lantus, Humalog, NPH (long-acting insulin), or 70/30 insulin, take half your normal dose the day before your procedure. DIABETES/WEIGHT MANAGEMENT: If you take medications for weight-loss, your dosage may need to be adjusted Contact the doctor who prescribes this medication for further instructions. If you take medications for weight-loss like semaglutide (Ozempic, Wegovy, Rybelsus), dulaglutide (Trulicity), liraglutide (Victoza, Saxenda), exenatide (Byetta, Bydureon), or lixisenatide (Adylyxin), stop your medication 1 week prior to your procedure. If you take medications like canagliflozin (Invokana), dapagliflozin (Farxiga, Forxiga), empagliflozin (Jardiance), stop your medication 3 days prior to your procedure. If you take ertugliflozin (Steglatro) stop your medication 4 days prior to your procedure. IRON: If you take iron pills, STOP them 1 week BEFORE your procedure, may resume after. OTHER MEDS: May take all other medications (including aspirin, antibiotics, water pills / diuretics like Lasix or Metolozone, blood pressure meds, etc.) at their usual scheduled time with water. DIET REQUIREMENTS The day before your colonoscopy, you may have a clear liquid diet (see below). The day of your colonoscopy, you may continue a clear liquid diet until 3 hours before your colonoscopy. Within 3 hours of your colonoscopy, take only any medications (as above) with a sip of water. Clear Liquid Diet Broth (chicken, beef or vegetable broth or bullion. Just the broth, no solids). Water Coffee or Tea (NO milk or creamer), but sugar and sugar substitutes are allowed. Clear liquids including clear, yellow, green, blue (NO red, NO orange, NO purple) Sodas / soft drinks; Gatorade or other sports drinks Fruit juice (strained; no-pulp); Jacob-Aid or flavored drinks Plain Jell-O or other gelatins Popsicles or hard candy Bowel prep can work differently from person to person. Some people's bowels move slowly and they may need different instructions. Please see your doctor in office or virtually for personalized bowel prep instructions if you have: BOWEL PREPARATION (MIRALAX/GATORADE) Split Dosing Bowel Prep: This means drinking your bowel prep in two doses. Split dosing helps clean your colon better and makes it less likely that your procedure will be canceled. You will need to purchase the following (no prescriptions are needed): 64 ounces Gatorade, Propel, Crystal Lite or other noncarbonated clear liquid sports drink (NOT red, orange, or purple). Diabetic patients buy sugar-free, e.g. Gatorade G2 4 Dulcolax laxative tablets containing 5mg bisacodyl each (do not buy the stool softener) 8.3 oz MiraLAX (238g) powder or generic polyethylene glycol 3350 (find in laxative aisle) The day before your colonoscopy mix 64 oz of the sports drink with 8.3 oz MiraLAX (238 g) in a pitcher. Stir or shake until MiraLAX completely dissolved. Chill if desired. On the evening before your colonoscopy: 5 PM take 4 Dulcolax laxative tablets with water by mouth. 6 PM drink the first half of the Gatorade/MiraLAX solution Drink one 8-ounce glass every 15 minutes. Six hours before your colonoscopy, drink the second half of the solution. Drink one 8-ounce glass every 15 minutes. You may continue a clear liquid diet until 3 hours before your colonoscopy. Bowel prep can work differently from person to person. Some people's bowels move slowly and they may need different instructions. Please see your doctor in office or virtually for personalized bowel prep instructions if you have: Medical condition that needs special accommodations Had a poor bowel prep results or failed bowel prep attempts in the past. Had difficulty with anesthesia during the procedure. FREQUENTLY ASKED QUESTIONS Q: What if I suffer from constipation? A: Recommend taking extra laxatives to resolve your constipation days prior to entering the bowel prep day. Q: What if have had prior poor preps results in past? A: Contact your physician as you will likely need additional bowel prep instructions. Q: What if I have motility issues like Parkinson's, MS (multiple sclerosis), wheelchair dependent, etc.? or on medications that slow colonic transit times (narcotics, gabapentin, anticholinergic medications etc.) A: Contact your physician as you will likely need extra time and additional laxatives to complete your bowel prep. Q: What if I cannot drink large volume of liquid? A: Start your prep 2-3 hours earlier to allow yourself more time to complete the entire prep. Q: What if I had bariatric surgery? Do I still have to complete the entire prep? A: Yes, gastric bypass surgery involves the stomach & small bowel. You may need to drink smaller amounts, slower (may need more time to complete your bowel prep). Gastric bypass does not alter the length of your colon so you will need to complete the entire bowel prep, it may just take longer time to complete it. Q: What if I am on dialysis? A: Please consult your manager strategic prior to scheduling to get instructions pertinent to you. In general, dialysis patients take the HotelQuicklyly bowel prep and have the procedure same day of their dialysis (colonoscopy in AM, dialysis in PM). Q: How do I know if something is considered as clear liquid diet? A: If you can pour it in a glass and you can see through it, it is considered clear liquid Q: Can I eat nuts, seeds, beans, popcorn, dried fruits, vegetables & fruits that have skin peel? A: No, you will need to not eat these items starting 3 days prior to procedure. Q: Can I take Uber/Lyft/taxi/bus home? A: An adult MUST be present with you at check-in for your colonoscopy and remain in the endoscopy area until you are discharged. You can take Uber home only if this adult escort is with you at check in, remain in the endoscopy area until you are discharged, and takes the Uber with you to home. Q: Can I sleep it off here and drive myself home? A: No, you must have an adult with you at time of procedure check in, remain in the endoscopy center during your procedure, and drive you home. You cannot drive a vehicle after your procedure the rest of the day. Q: What if I can't finish my bowel prep? A: If you cannot complete your entire bowel prep, there is high likelihood that your colonoscopy will need to be rescheduled due to inadequate prep quality. documented in this encounter [facility] 07-23-2024 Note Patient Outreach ( [facility]) ASTON NAPOLES ([id number]) 1975 M Date Time Provider Department 07/23/24 FRANCISCOJ AVIER OSORIOWSTR During your visit today, we recorded the following information about you: Weight 99.7 kg Nicole Pendleton RN 07/23/2024 10:40 AM Signed COLONOSCOPY BOWEL PREPARATION INSTRUCTIONS MiraLAX? Your doctor has scheduled you for a colonoscopy. To have a successful colonoscopy, you must have a clean colon, that is empty. A clean colon allows your doctor to see the entire colon AND diagnose issues like polyps or cancer. For doctors, a clean colon is like driving on a prakash day; a dirty colon like driving in a storm. It is very important that you follow these instructions exactly, or your colonoscopy may not be as effective, could be canceled, and you may need to do the bowel prep and colonoscopy again. TRANSPORTATION REQUIREMENTS You are receiving IV sedation. For your safety, a responsible adult escort must accompany you to and from your procedure: Your adult escort MUST be present with you at check-in for your colonoscopy. Your adult escort MUST remain in the endoscopy area until you are discharged. Your adult escort MUST transport you home once you are discharged. You are NOT allowed to operate any form of transportation (i.e. drive a car, bicycle, etc) or leave the Endoscopy Center ALONE. It is not safe to do so. If you cannot meet these requirements, your procedure will be canceled. MEDICATION REQUIREMENTS For your safety, certain medications will need to be stopped or adjusted before you can have your procedure: BLOOD THINNERS: If you take blood thinners, such as Coumadin (warfarin), Plavix (clopidogrel), Ticlid (ticlopidine hydrochloride), Agrylin (anagrelide), Xarelto (Rivaroxaban), Pradaxa (Dabigatran), Eliquis (Apixaban), or Effient (Prasugrel), contact the physician who is prescribing these medications at least 2 weeks prior to your procedure to discuss any necessary adjustments. DIABETES: If you take medications for diabetes, your dosage may need to be adjusted. If you are being treated for diabetes with insulin, diabetic pills, or other injectable medications do not take your REGULAR dose after midnight on the day of your procedure. If you are taking any other types of insulin such as Lantus, Humalog, NPH (long-acting insulin), or 70/30 insulin, take half your normal dose the day before your procedure. DIABETES/WEIGHT MANAGEMENT: If you take medications for weight-loss, your dosage may need to be adjusted Contact the doctor who prescribes this medication for further instructions. If you take medications for weight-loss like semaglutide (Ozempic, Wegovy, Rybelsus), dulaglutide (Trulicity), liraglutide (Victoza, Saxenda), exenatide (Byetta, Bydureon), or lixisenatide (Adylyxin), stop your medication 1 week prior to your procedure. If you take medications like canagliflozin (Invokana), dapagliflozin (Farxiga, Forxiga), empagliflozin (Jardiance), stop your medication 3 days prior to your procedure. If you take ertugliflozin (Steglatro) stop your medication 4 days prior to your procedure. IRON: If you take iron pills, STOP them 1 week BEFORE your procedure, may resume after. OTHER MEDS: May take all other medications (including aspirin, antibiotics, water pills / diuretics like Lasix or Metolozone, blood pressure meds, etc.) at their usual scheduled time with water. DIET REQUIREMENTS The day before your colonoscopy, you may have a clear liquid diet (see below). The day of your colonoscopy, you may continue a clear liquid diet until 3 hours before your colonoscopy. Within 3 hours of your colonoscopy, take only any medications (as above) with a sip of water. Clear Liquid Diet Broth (chicken, beef or vegetable broth or bullion. Just the broth, no solids). Water Coffee or Tea (NO milk or creamer), but sugar and sugar substitutes are allowed. Clear liquids including clear, yellow, green, blue (NO red, NO orange, NO purple) Sodas / soft drinks; Gatorade or other sports drinks Fruit juice (strained; no-pulp); Jacob-Aid or flavored drinks Plain Jell-O or other gelatins Popsicles or hard candy Bowel prep can work differently from person to person. ? Some people's bowels move slowly and they may need different instructions. Please see your doctor in office or virtually for personalized bowel prep instructions if you have: BOWEL PREPARATION (MIRALAX/GATORADE) Split Dosing Bowel Prep: This means drinking your bowel prep in two doses. Split dosing helps clean your colon better and makes it less likely that your procedure will be canceled. You will need to purchase the following (no prescriptions are needed): 64 ounces Gatorade, Propel, Crystal Lite or other noncarbonated clear liquid sports drink (NOT red, orange, or purple). Diabetic (more content not included)... [facility] 07-13-2024 Telephone encounter Note Left message on Kiah Penn MA [facility] 07-13-2024 Miscellaneous Notes Left message on Kiah Penn MA Complete metabolic panel and fasting lipid panel was ordered from last fall. This includes liver function tests. 6 month follow-up, 07/26/2024 Rebecca Francisco LPN Pt called asking for a lab order for liver function documented in this encounter [facility] 07-13-2024 Telephone encounter Note Complete metabolic panel and fasting lipid panel was ordered from last fall. This includes liver function tests. [facility] 07-12-2024 Telephone encounter Note 6 month follow-up, 07/26/2024 Rebecca Francisco LPN [facility] 07-12-2024 Telephone encounter Note Pt called asking for a lab order for liver function [facility] 07-10-2024 Note HNO ID: [id number] Author: ENOC BYNUM, PT Service: ? Author Type: Physical Therapist Type: Progress Notes Filed: 07/10/2024 09:24 Note Text: Episode Visit Count: 7 Therapist That Will Accept/Oversee The Plan Of Care: Enoc Bynum Start of Care Date: 03/23/24 Onset Date: 02/01/24 [facility] PHYSICAL THERAPY DISCONTINUANCE OF CARE PLAN OF CARE UPDATE: Assessment: Aston Napoles is discontinued from Physical Therapy services due to goal achievement and maximal benefit.. Patient was seen for 7 visits from Start of Care Date: 03/23/24 to 07/10/2024 and treatment included: Therapeutic exercise, Manual therapy, and Gait training. Goals updated on 07/10/2024. Goals for Episode of Care: established 03/23/24 [place] in home exercise program. Met Patient will decrease pain rating by 2 points to meet minimal clinical important difference for numeric pain rating scale. Met Patient will increase active ROM of L ankle to 10df/60pf/40inv/20ev to allow pt to to improve performance of ADLs and to improve gait mechanics / gait pattern . Met Patient will demonstrate increase in L ankle strength to 5/5 during manual muscle testing in order to improve function for basic self-care tasks, home management tasks, moderate to heavy functional tasks, prior functional tasks, and work tasks. Met Perform work and recreational tasks with decreased report of symptoms/pain in 8 weeks. Met Perform walking and ADLs without pain. Met Normal gait. Met SUBJECTIVE: Patient reports some intermittent aching in the heel but besides that he is doing very well. He is back to recreational activities and unrestricted at work and with ADLs and IADLs. He will get some pain if he has to try to run or jump, but these are not neccessary for him to function, so he is fine with holding off on them for now. Pain: Pain Pain Level: 0 Pain Location: Heel - Left Description: Tightness Frequency: Intermittent PROMIS Scales 07/06/2024 05/04/2024 04/06/2024 Higher is Better Phys Func - T Score 55 (within normal limits) 46 (within normal limits) 40 (mild dysfunction) Phys Func - Percentile 69 34 16 Self-Eff Symptom - T Score 69 (High) 50 (Average) 41 (Average) Self-Eff Symptom - Percentile 97 50 18 Proxy-reported T-scores: mean of general population = 50. [...] OF FUNCTION: LE AROM L Ankle Dorsiflexion: 15 Degrees L Ankle Plantar Flexion: 63 Degrees L Ankle Inversion: 45 L Ankle Eversion: 25 LE Strength R Ankle Plantarflexion Functional Strength (S1): 54# L Ankle Plantarflexion Functional Strength (S1): 52.9# TREATMENT: Therapeutic Exercise: 1: Recumbent bike x5 min (1:1 entire time, discussed progress towards therapy goals and discussed his function at home, work, and recreationally) 2: Objective measures obtained 3: Reviewed HEP and discussed progressions and regressions Skilled Intervention: Patient was educated in proper exercise technique and purpose for exercises. Skilled judgment was used in selection of appropriate interventions. Provided written instruction for home exercise program to facilitate proper performance and compliance. Correct performance of therapeutic exercises was facilitated with verbal, visual, and tactile cuing. Billing Therapeutic Exercise Treatment Minutes: 27 Skilled Treatment Time Minutes (timed and untimed codes): 27 Total Session Time (minutes): 27 Session Start Time : 900 Session Stop Time : 927 Enoc Bynum, PT [facility] 07-10-2024 History of Present illness Narrative Images from the original note were not included. Episode Visit Count: 7 Therapist That Will Accept/Oversee The Plan Of Care: Enoc Bynum Start of Care Date: 03/23/24 Onset Date: 02/01/24 REHABILITATION AND SPORTS THERAPY PHYSICAL THERAPY DISCONTINUANCE OF CARE PLAN OF CARE UPDATE: Assessment: Aston Napoles is discontinued from Physical Therapy services due to goal achievement and maximal benefit.. Patient was seen for 7 visits from Start of Care Date: 03/23/24 to 07/10/2024 and treatment included: Therapeutic exercise, Manual therapy, and Gait training. Goals updated on 07/10/2024. Goals for Episode of Care: established 03/23/24 [place] in home exercise program. Met Patient will decrease pain rating by 2 points to meet minimal clinical important difference for numeric pain rating scale. Met Patient will increase active ROM of L ankle to 10df/60pf/40inv/20ev to allow pt to to improve performance of ADLs and to improve gait mechanics / gait pattern . Met Patient will demonstrate increase in L ankle strength to 5/5 during manual muscle testing in order to improve function for basic self-care tasks, home management tasks, moderate to heavy functional tasks, prior functional tasks, and work tasks. Met Perform work and recreational tasks with decreased report of symptoms/pain in 8 weeks. Met Perform walking and ADLs without pain. Met Normal gait. Met SUBJECTIVE: Patient reports some intermittent aching in the heel but besides that he is doing very well. He is back to recreational activities and unrestricted at work and with ADLs and IADLs. He will get some pain if he has to try to run or jump, but these are not neccessary for him to function, so he is fine with holding off on them for now. Pain: Pain Pain Level: 0 Pain Location: Heel - Left Description: Tightness Frequency: Intermittent PROMIS Scales 07/06/2024 05/04/2024 04/06/2024 Higher is Better Phys Func - T Score 55 (within normal limits) 46 (within normal limits) 40 (mild dysfunction) Phys Func - Percentile 69 34 16 Self-Eff Symptom - T Score 69 (High) 50 (Average) 41 (Average) Self-Eff Symptom - Percentile 97 50 18 Proxy-reported T-scores: mean of general population = 50. [...] OF FUNCTION: LE AROM L Ankle Dorsiflexion: 15 Degrees L Ankle Plantar Flexion: 63 Degrees L Ankle Inversion: 45 L Ankle Eversion: 25 LE Strength R Ankle Plantarflexion Functional Strength (S1): 54# L Ankle Plantarflexion Functional Strength (S1): 52.9# TREATMENT: Therapeutic Exercise: 1: Recumbent bike x5 min (1:1 entire time, discussed progress towards therapy goals and discussed his function at home, work, and recreationally) 2: Objective measures obtained 3: Reviewed HEP and discussed progressions and regressions Skilled Intervention: Patient was educated in proper exercise technique and purpose for exercises. Skilled judgment was used in selection of appropriate interventions. Provided written instruction for home exercise program to facilitate proper performance and compliance. Correct performance of therapeutic exercises was facilitated with verbal, visual, and tactile cuing. Billing Therapeutic Exercise Treatment Minutes: 27 Skilled Treatment Time Minutes (timed and untimed codes): 27 Total Session Time (minutes): 27 Session Start Time : 900 Session Stop Time : 927 Enoc Bynum PT documented in this encounter [facility] 06-07-2024 Note HNO ID: [id number] Author: BIANCA THOMAS MA Service: ? Author Type: Local [employer] Truck [employer] Type: Progress Notes Filed: 06/07/2024 12:15 Note Text: Specimen collected per ordering providers note and recommendation. Bianca Thomas MA [facility] 06-07-2024 History of Present illness Narrative Specimen collected per ordering providers note and recommendation. Bianca Thomas MA documented in this encounter [facility] 06-07-2024 Note SARS-COV-2 (AGENT OF COVID-19) RNA: Not detected INFLUENZA A RNA: Not detected INFLUENZA B RNA: Not detected RESPIRATORY SYNCYTIAL VIRUS (RSV) RNA: Not detected [facility] Comment on above: Performed By: #### [id number] ####[facility] LABCLIA [id number] [address] OF [facility] 06-07-2024 Instructions Jackie Rice APRN.CERTIFIED CAREGIVER - 06/07/2024 11:30 AM EST How to Manage Common Symptoms at Home Fever- Fever is a temperature over 100.4 [...] damp washcloths to the forehead and wrists. Use the following definitions to help put the level of fever into proper perspective: 100-102 F (37.8 - 38.9 C): Low-grade fevers and may help body fight infection. 102-104 F (38.9 - 40 C): Moderate-grade fevers; cause discomfort. Over 104 F (over 40 C): High fevers; cause discomfort, weakness, headache, lethargy. Over 106 F (over 41 C): The fever itself can be harmful. FEVER MEDICINES: For fever relief, take acetaminophen. Treat fevers above 101 F (38.3 C). The goal of fever therapy is to bring the fever down to a comfortable level. Remember that fever medicine usually lowers fever 2-3 F (1-1.5 C). Cough- To help treat a cough: Stay well hydrated. Try warm water or tea with lemon and/or honey to help soothe the cough. Use a humidifier to add moisture to the air. Try a product with menthol, like a cough drop or a rub for your chest such as Vicks, which can help reduce cough. Try cough drops or hard candy Avoid smoking and other strong odors or perfumes. Try breathing exercises to keep your lungs open and clear. Take a big deep breath through your nose and hold for 5 seconds before slowly releasing. Repeat frequently, while you are awake. OTC COUGH DROPS: Cough drops can help a lot, especially for mild coughs. They reduce coughing by soothing your irritated throat and removing that tickle sensation in the back of the throat. Cough drops also have the advantage of portability - you can carry them with you. HOME REMEDY - HARD CANDY: Hard candy works just as well as medicine-flavored OTC cough drops. People who have diabetes should use sugar-free candy. HOME REMEDY - HONEY: This old home remedy has been shown to help decrease coughing at night. The adult dosage is 2 teaspoons (10 ml) at bedtime. Honey should not be given to infants under one year of age. HUMIDIFIER: If the air is dry, use a humidifier in the bedroom. (Reason: dry air makes coughs worse) AVOID TOBACCO SMOKE: Smoking or being exposed to smoke makes coughs much worse. Congestion-Treatment can help relieve symptoms: Try OTC nasal saline spray, or nasal saline rinse to relieve mucus congestion. Nasal strips can help keep nasal passages open, to increase airflow. Elevating your head with an extra pillow in bed can help reduce congestion. Using a humidifier can increase moisture in the air, and make breathing easier. Taking showers or baths with eucalyptus and mentholated products Use Nasal Washes: -Introduction: Saline (salt water) nasal irrigation (nasal wash) is an effective and simple home remedy for treating stuffy nose and sinus congestion. The nose can be irrigated by pouring, spraying, or squirting salt water into the nose and then letting it run back out. -How it Helps: The salt water rinses out excess mucus, washes out any irritants (dust, allergens) that might be present, and moistens the nasal cavity. -Methods: There are several ways to perform nasal irrigation. You can use a saline nasal spray bottle (available [id number]), a rubber ear syringe, a medical syringe without the needle, or a Neti Pot. Xbto-Gz-Ezed Instructions: Step 1: Lean over a sink. Step 2: Gently squirt or spray warm salt water into one of your nostrils. Step 3: Some of the water may run into the back of your throat. Spit this out. If you swallow the salt water it will not hurt you. Step 4: Blow your nose to clean out the water and mucus. Step 5: Repeat steps 1-4 for the other nostril. You can do this a couple times a day if it seems to help you. How to Make Saline (Salt Water) Nasal Wash: You can make your own saline nasal wash. Put 1 cup (8 oz; 240 ml) of water in a clean container. Add 3/4 teaspoon of non-iodized salt (such as saji or pickling salt) to the water. Add 1/4 teaspoon baking soda to the water. Stir well. Use bottled or boiled tap water that has cooled. Sore Throat Stay well hydrated. Gargle with salt water [...] emergency medical attention Look for emergency warning signs. If having any of these symptoms, seek emergency medical care immediately: Trouble breathing Persistent pain or pressure in the chest New confusion Inability to wake or stay awake Bluish lips or face *This list is not all possible symptoms. Please call your medical provider for any other symptoms that are severe or concerning to you. All Natural DIY Pineapple Cough Syrup Ingredients: -2 thick slices of pineapple, peel removed, but core intact (about 2 cps) - 1 tbsp honey - 1/2 tsp cayenne pepper (omit or reduce for children) - a thumb sized piece of ari (omit or reduce for children), peeled, sliced or rough chopped - juice of 1 lemon Instructions: Give the pineapple a rough chop, including core, which is not only edible but very healthy Blend everything up in a stock blender or hospital food service worker until smooth Use a mesh strainer to get a smoother syrup if desired. Can use straight from stock blender. Keep refrigerated and take when needed as often as needed. Can mix in tea or water. Note: DO NOT give anything w/ honey to children un maciej 1 yr old. If you have a persistent cough, seek medical attention. Recipe slightly adapted from [email or web address] documented in this encounter [facility] 06-07-2024 Note HNO ID: [id number] Author: JACKIE RICE APRN.CERTIFIED CAREGIVER Service: ? Author Type: Nurse Practitioner Type: Progress Notes Filed: 06/07/2024 11:30 Note Text: Telemedicine Visit - Distance Health Virtual Visit Note Patient seen on Service Seeking Video Visit platform. Location of patient: [place] I have communicated my name and active licensure. The patient's identity and physical location were verified at the time of this visit. Either the patient or their legal medical service representative has been informed of the risks and benefits of -- and alternatives to -- treatment through a remote evaluation and consents to proceed with the evaluation remotely. CC: Fever headache and nausea History of Present Illness Aston Napoles is a 49 year old male who presents for the past 3 days with symptoms that are:constant. Symptoms include: Positive for Fever, Chills/Sweats, Cough, Nasal congestion, PND, Ear pressure, Headache, Fatigue, Nausea, and Diarrhea, Negative for SOB, Wheezing, Teeth pain , and Emesis, Oral intake: Decreased appetite and Adequate fluid intake Recent rapid at-home COVID test completed: No Sick contacts: yes Recent travel: no OTC meds/remedies that patient has tried: Dayquil; Excedrin; Nyquil; Neti pot PAST MEDICAL HISTORY Diagnosis Date Achilles tendinitis of left lower extremity 12/19/2023 Anxiety and depression 02/27/2018 HLD (hyperlipidemia) 08/04/2023 [...] Comment: once a month Drug use: Never Current Outpatient Medications Medication Sig triamcinolone acetonide (KENALOG) 0.1 % cream Apply 1 application to affected area two times a day. Apply twice daily from the neck down including the scrotum. sildenafil (VIAGRA) 50 mg tablet Take 1 tablet by mouth once daily as needed. Take 30-60 minutes before sexual activity. Take on an empty stomach. meloxicam (MOBIC) 15 mg tablet Take 1 tablet by mouth daily with food. Cholecalciferol, Vitamin D3, (VITAMIN D) 25 mcg (1,000 unit) cap Take 1,000 Units by mouth once daily. clotrimazole-betamethasone (LOTRISONE) cream [...] mouth two times a day. 10 MG No current facility-administered medications for this visit. ALLERGIES Allergen Reactions Compazine [Prochlor* Other: See Comments Jittery feeling Video Exam (Examination performed via Video enabled technology) General appearance: Alert, oriented, pleasant, in NAD: Yes Ill appearing: No Lethargic appearing: No Eyes: Sclera clear: Yes Conjunctiva without erythema: Yes Ears:Tragus / outer ear tenderness by self palpation: No Oropharynx: moist mucus membranes Frontal sinus tenderness by self palpation: No Maxillary sinus tenderness by self palpation: No Tender cervical adenopathy by self palpation: No Respiratory distress: No Coughing noted: No Audible wheezing noted: No ASSESSMENT/PLAN: 1. Viral URI with cough - ICD9: 465.9, ICD10: J06.9 (primary diagnosis) 2. Flu-like symptoms - ICD9: 780.99, ICD10: R68.89 Discussed viral etiology and rationale for treatment. - Symptomatic treatment with prn analgesia - Supportive care with fluids and rest - OTC cough and cold meds as needed - Warm salt water gargl (more content not included)... [facility] 06-07-2024 History of Present illness Narrative Telemedicine Visit - Distance Health Virtual Visit Note Patient seen on Service Seeking Video Visit platform. Location of patient: [place] I have communicated my name and active licensure. The patient's identity and physical location were verified at the time of this visit. Either the patient or their legal medical service representative has been informed of the risks and benefits of -- and alternatives to -- treatment through a remote evaluation and consents to proceed with the evaluation remotely. CC: Fever headache and nausea History of Present Illness Aston Napoles is a 49 year old male who presents for the past 3 days with symptoms that are:constant. Symptoms include: Positive for Fever, Chills/Sweats, Cough, Nasal congestion, PND, Ear pressure, Headache, Fatigue, Nausea, and Diarrhea, Negative for SOB, Wheezing, Teeth pain , and Emesis, Oral intake: Decreased appetite and Adequate fluid intake Recent rapid at-home COVID test completed: No Sick contacts: yes Recent travel: no OTC meds/remedies that patient has tried: Dayquil; Excedrin; Nyquil; Neti pot PAST MEDICAL HISTORY Diagnosis Date Achilles tendinitis of left lower extremity 12/19/2023 Anxiety and depression 02/27/2018 HLD (hyperlipidemia) 08/04/2023 [...] Comment: once a month Drug use: Never Current Outpatient Medications Medication Sig triamcinolone acetonide (KENALOG) 0.1 % cream Apply 1 application to affected area two times a day. Apply twice daily from the neck down including the scrotum. sildenafil (VIAGRA) 50 mg tablet Take 1 tablet by mouth once daily as needed. Take 30-60 minutes before sexual activity. Take on an empty stomach. meloxicam (MOBIC) 15 mg tablet Take 1 tablet by mouth daily with food. Cholecalciferol, Vitamin D3, (VITAMIN D) 25 mcg (1,000 unit) cap Take 1,000 Units by mouth once daily. clotrimazole-betamethasone (LOTRISONE) cream [...] mouth two times a day. 10 MG No current facility-administered medications for this visit. ALLERGIES Allergen Reactions Compazine [Prochlor* Other: See Comments Jittery feeling Video Exam (Examination performed via Video enabled technology) General appearance: Alert, oriented, pleasant, in NAD: Yes Ill appearing: No Lethargic appearing: No Eyes: Sclera clear: Yes Conjunctiva without erythema: Yes Ears:Tragus / outer ear tenderness by self palpation: No Oropharynx: moist mucus membranes Frontal sinus tenderness by self palpation: No Maxillary sinus tenderness by self palpation: No Tender cervical adenopathy by self palpation: No Respiratory distress: No Coughing noted: No Audible wheezing noted: No ASSESSMENT/PLAN: 1. Viral URI with cough - ICD9: 465.9, ICD10: J06.9 (primary diagnosis) 2. Flu-like symptoms - ICD9: 780.99, ICD10: R68.89 Discussed viral etiology and rationale for treatment. - Symptomatic treatment with prn analgesia - Supportive care with fluids and rest - OTC cough and cold meds as needed - Warm salt water gargles, throat lozenges and/or OTC throat spray as needed - Nasal saline gtts and suction prn. - Declined need for cough suppressant or nasal spray-reports he has them at home from previous illnesses - Work letter provided - Follow up in one week if symptoms persist or sooner if worsening of symptoms - COVID & INFLUENZA A/B & RSV PCR, ROUTINE-to obtain swab at [facility], notified via Teams. Is positive for Influenza, past timeframe for Tamiflu. Does not qualify for Paxlovid (no updated hepatic function tests). -Tylenol (generic acetaminophen) 500 mg-2 tabs every 8 hrs. as needed for fever and aches -Sudafed (generic is fine), behind the counter, 2x30 mg tabs twice daily as needed for congestion -Mucinex (generic is fine) 1200 mg twice daily to help with cough and to thin out mucus -http://www.choosingwisely.org/pat ient-resources/antibiotics/. This link shares information about when antibiotics may help and when they may not. - Red flags discussed for need for in person care - All questions answered Jackie Rice APRN.CNP documented in this encounter [facility] 06-01-2024 Note HNO ID: [id number] Author: ENOC BYNUM PT Service: ? Author Type: Physical Therapist Type: Progress Notes Filed: 06/01/2024 08:23 Note Text: Episode Visit Count: 6 Therapist That Will Accept/Oversee The Plan Of Care: Enoc Bynum Start of Care Date: 03/23/24 Onset Date: 02/01/24 REHABILITATION AND SPORTS THERAPY PHYSICAL THERAPY PROGRESS REPORT PLAN OF CARE UPDATE: Assessment: Aston Napoles demonstrates significant improvement in rising from a chair, standing, walking, walking in the community, stair negotiation, bending, heavy exertion, and physical activities . The patient has progressed toward goals. Patient continues to present with impairments in overall function and strength that interfere with heavy exertion, recreational activities, jumping, running . Current prognosis is Good due to: good overall health status, current objective clinical presentation, positive past response to therapy, within-session changes, good support system/ coping skills . The patient will benefit from continued skilled therapy services to meet the updated goals for this plan of care as noted below. Goals updated on 06/01/2024. Goals for Episode of Care: established 03/23/24 [place] in home exercise program. Met Patient will decrease pain rating by 2 points to meet minimal clinical important difference for numeric pain rating scale. Met Patient will increase active ROM of L ankle to 10df/60pf/40inv/20ev to allow pt to to improve performance of ADLs and to improve gait mechanics / gait pattern . Progressing Patient will demonstrate increase in L ankle strength to 5/5 during manual muscle testing in order to improve function for basic self-care tasks, home management tasks, moderate to heavy functional tasks, prior functional tasks, and work tasks. Progressing Perform work and recreational tasks with decreased report of symptoms/pain in 8 weeks. Met Perform walking and ADLs without pain. Met Normal gait. Met Time Frame for Goals and Treatment : 06/29/24 Planned Interventions, Frequency, and Duration: 1x/month, 4 weeks Total Number of Visits Planned: 1 Patient to be seen for Therapeutic exercise (54480), Neuromuscular re-education (97678), Manual therapy (95058), Therapeutic activities (00786), Self-mcfp management (27248), Gait Training (03690), Patient/Family/Caregiver Education, Body Mechanics Training PLAN FOR NEXT VISIT: August DC if patient reaches at least 80% strength in PF SUBJECTIVE: Patient continues to do better. Completely into normal shoes now and does not feel held back during ADLs. Regularly working out on top of his exercises. Functional Limitations: heavy exertion, recreational activities, jumping, running Pain: Pain Pain Level: 1 Pain Location: Heel - Left Description: Tightness Frequency: Intermittent PROMIS Scales 05/04/2024 04/06/2024 02/08/2024 Higher is Better Phys Func - T Score 46 (within normal limits) 40 (mild dysfunction) 33 (moderate dysfunction) Phys Func - Percentile 34 16 4 Self-Eff Symptom - T Score 50 (Average) 41 (Average) Self-Eff Symptom - Percentile 50 18 Proxy-reported T-scores: mean of general population = 50. [...] OF FUNCTION: LE AROM L Ankle Dorsiflexion: 15 Degrees (25 soleus) L Ankle Plantar Flexion: 60 Degrees L Ankle Inversion: 40 L Ankle Eversion: 18 LE Strength L LE Strength: See dynamometer below R Ankle Plantarflexion Functional Strength (S1): 69.5# L Ankle Plantarflexion Functional Strength (S1): 48.9# Lower Extremity Dynamometer Testing : Yes TREATMENT: Therapeutic Exercise: 1: Recumbent bike x5 min (seat 7, 1:1 entire time, discussed progress towards therapy goals) 2: Seated gastroc and soleus stretch 3x30 sec each 3: *Standing calf raise from step 3x30 4: Standing dorsiflexion 3x20 5: SLS 3x30 sec 6: Objective measures obtained Skilled Intervention: Patient was educated in proper exercise technique and purpose for exercises. Skilled judgment was used in selection of appropriate interventions. Provided written instruction for home exercise program to facilitate proper performance and compliance. Correct performance of therapeutic exercises was facilitated with verbal and visual cuing. Billing Therapeutic Exercise Treatment Minutes: 28 Skilled Treatment Time Minutes (timed and untimed codes): 28 Total Session Time (minutes): 28 Session Start Time : 732 Session Stop Time : 800 Enoc Bynum PT [facility] 06-01-2024 History of Present illness Narrative Images from the original note were not included. Episode Visit Count: 6 Therapist That Will Accept/Oversee The Plan Of Care: Enoc Bynum Start of Care Date: 03/23/24 Onset Date: 02/01/24 REHABILITATION AND SPORTS THERAPY PHYSICAL THERAPY PROGRESS REPORT PLAN OF CARE UPDATE: Assessment: Aston Napoles demonstrates significant improvement in rising from a chair, standing, walking, walking in the community, stair negotiation, bending, heavy exertion, and physical activities . The patient has progressed toward goals. Patient continues to present with impairments in overall function and strength that interfere with heavy exertion, recreational activities, jumping, running . Current prognosis is Good due to: good overall health status, current objective clinical presentation, positive past response to therapy, within-session changes, good support system/ coping skills . The patient will benefit from continued skilled therapy services to meet the updated goals for this plan of care as noted below. Goals updated on 06/01/2024. Goals for Episode of Care: established 03/23/24 [place] in home exercise program. Met Patient will decrease pain rating by 2 points to meet minimal clinical important difference for numeric pain rating scale. Met Patient will increase active ROM of L ankle to 10df/60pf/40inv/20ev to allow pt to to improve performance of ADLs and to improve gait mechanics / gait pattern . Progressing Patient will demonstrate increase in L ankle strength to 5/5 during manual muscle testing in order to improve function for basic self-care tasks, home management tasks, moderate to heavy functional tasks, prior functional tasks, and work tasks. Progressing Perform work and recreational tasks with decreased report of symptoms/pain in 8 weeks. Met Perform walking and ADLs without pain. Met Normal gait. Met Time Frame for Goals and Treatment : 06/29/24 Planned Interventions, Frequency, and Duration: 1x/month, 4 weeks Total Number of Visits Planned: 1 Patient to be seen for Therapeutic exercise (23321), Neuromuscular re-education (28543), Manual therapy (79883), Therapeutic activities (44156), Self-mcfp management (10286), Gait Training (13292), Patient/Family/Caregiver Education, Body Mechanics Training PLAN FOR NEXT VISIT: August if patient reaches at least 80% strength in PF SUBJECTIVE: Patient continues to do better. Completely into normal shoes now and does not feel held back during ADLs. Regularly working out on top of his exercises. Functional Limitations: heavy exertion, recreational activities, jumping, running Pain: Pain Pain Level: 1 Pain Location: Heel - Left Description: Tightness Frequency: Intermittent PROMIS Scales 05/04/2024 04/06/2024 02/08/2024 Higher is Better Phys Func - T Score 46 (within normal limits) 40 (mild dysfunction) 33 (moderate dysfunction) Phys Func - Percentile 34 16 4 Self-Eff Symptom - T Score 50 (Average) 41 (Average) Self-Eff Symptom - Percentile 50 18 Proxy-reported T-scores: mean of general population = 50. [...] OF FUNCTION: LE AROM L Ankle Dorsiflexion: 15 Degrees (25 soleus) L Ankle Plantar Flexion: 60 Degrees L Ankle Inversion: 40 L Ankle Eversion: 18 LE Strength L LE Strength: See dynamometer below R Ankle Plantarflexion Functional Strength (S1): 69.5# L Ankle Plantarflexion Functional Strength (S1): 48.9# Lower Extremity Dynamometer Testing : Yes TREATMENT: Therapeutic Exercise: 1: Recumbent bike x5 min (seat 7, 1:1 entire time, discussed progress towards therapy goals) 2: Seated gastroc and soleus stretch 3x30 sec each 3: *Standing calf raise from step 3x30 4: Standing dorsiflexion 3x20 5: SLS 3x30 sec 6: Objective measures obtained Skilled Intervention: Patient was educated in proper exercise technique and purpose for exercises. Skilled judgment was used in selection of appropriate interventions. Provided written instruction for home exercise program to facilitate proper performance and compliance. Correct performance of therapeutic exercises was facilitated with verbal and visual cuing. Billing Therapeutic Exercise Treatment Minutes: 28 Skilled Treatment Time Minutes (timed and untimed codes): 28 Total Session Time (minutes): 28 Session Start Time : 732 Session Stop Time : 800 Enoc Bynum PT Program_ID:[id number] Access Code: [email or web address] URL: [email or web address] Date: 06-01-2024 Prepared By: Enoc Bynum Program Notes Exercises - Seated Calf Stretch with Strap - 1 x daily - 7 x weekly - 1 sets - 3 reps - Seated Soleus Stretch with Strap - 1 x daily - 7 x weekly - 1 sets - 3 reps - Long Sitting Ankle Eversion with Resistance - 1 x daily - 7 x weekly - 3 sets - 20 reps - Long Sitting Ankle Inversion with Resistance - 1 x daily - 7 x weekly - 3 sets - 20 reps - Single Leg Stance - 1 x daily - 7 x weekly - 1 sets - 3 reps - Heel Toe Raises with Counter Support - 1 x daily - 7 x weekly - 3 sets - 20 reps - Eccentric Heel Lowering on Step - 1 x daily - 7 x weekly - 3 sets - 20 reps Program_ID:[id number] Access Code: [email or web address] URL: [email or web address] Date: 06-01-2024 Prepared By: Enoc Bynum Program Notes Exercises - Seated Calf Stretch with Strap - 3 x daily - 7 x weekly - 1 sets - 3 reps - Seated Soleus Stretch with Strap - 3 x daily - 7 x weekly - 1 sets - 3 reps - Towel Scrunches - 1 x daily - 7 x weekly - 3 sets - 10 reps - Seated Ankle Alphabet - 3 x daily - 7 x weekly - 1 sets - 1 reps - Long Sitting Ankle Eversion with Resistance - 1 x daily - 7 x weekly - 3 sets - 20 reps - Long Sitting Ankle Inversion with Resistance - 1 x daily - 7 x weekly - 3 sets - 20 reps - Single Leg Stance - 1 x daily - 7 x weekly - 1 sets - 3 reps - Heel Raises with Counter Support - 1 x daily - 7 x weekly - 3 sets - 20 reps - Heel Toe Raises with Counter Support - 1 x daily - 7 x weekly - 3 sets - 20 reps - Eccentric Heel Lowering on Step - 1 x daily - 7 x weekly - 3 sets - 20 reps documented in this encounter [facility] 05-10-2024 History of Present illness Narrative Aston Napoles Surgery Date: 02/01/2024 Surgery: L achilles debridement Interval History: He is now 3 months since surgery. They report minimal pain. Working on strengthening with PT. Doing well ASSESSMENT/PLAN: 1. Achilles tendinitis of left lower extremity - ICD9: 726.71, ICD10: M76.62 - Continue PT - No restrictions Follow up as needed Physical Exam: Well appearing male in no acute distress; Alert and oriented. Left Leg: Incision is clean dry and intact. There is no erythema warmth or drainage. He has palpable pulses, sensation is intact. He is able to flex and extend their toes and ankles without difficulty Radiographs: No imaging was performed today. Medication, History, and Allergies were reviewed and updated in the medical record. Carmen Rojas MD Orthopaedic Medical Decision Making (MDM) Complexity of problems: Stable chronic illness, Level of MDM: Minimal (2) documented in this encounter [facility] 05-10-2024 Note HNO ID: [id number] Author: CARMEN ROJAS MD Service: ? Author Type: Physician Type: Progress Notes Filed: 05/10/2024 08:18 Note Text: Aston Napoles Surgery Date: 02/01/2024 Surgery: L achilles debridement Interval History: He is now 3 months since surgery. They report minimal pain. Working on strengthening with PT. Doing well ASSESSMENT/PLAN: 1. Achilles tendinitis of left lower extremity - ICD9: 726.71, ICD10: M76.62 - Continue PT - No restrictions Follow up as needed Physical Exam: Well appearing male in no acute distress; Alert and oriented. Left Leg: Incision is clean dry and intact. There is no erythema warmth or drainage. He has palpable pulses, sensation is intact. He is able to flex and extend their toes and ankles without difficulty Radiographs: No imaging was performed today. Medication, History, and Allergies were reviewed and updated in the medical record. Carmen Rojas MD Orthopaedic Medical Decision Making (MDM) Complexity of problems: Stable chronic illness, Level of MDM: Minimal (2) [facility] 05-04-2024 Note HNO ID: [id number] Author: ENOC BYNUM, PT Service: ? Author Type: Physical Therapist Type: Progress Notes Filed: 05/04/2024 15:51 Note Text: Episode Visit Count: 5 Therapist That Will Accept/Oversee The Plan Of Care: Enoc Bynum Start of Care Date: 03/23/24 Onset Date: 02/01/24 REHABILITATION AND SPORTS THERAPY PHYSICAL THERAPY PROGRESS REPORT PLAN OF CARE UPDATE: Assessment: Aston Napoles demonstrates significant improvement in rising from a chair, standing, walking, and bending . The patient has progressed toward goals. Patient continues to present with impairments in range of motion, strength, symptom management, and tissue tenderness that interfere with stair negotiation, heavy exertion, physical activities, recreational activities, running . Current prognosis is Good due to: current objective clinical presentation, good overall health status, acuteness of condition, positive past response to therapy, within-session changes, good support system/ coping skills . The patient will benefit from continued skilled therapy services to meet the updated goals for this plan of care as noted below. Goals updated on 05/04/2024. Goals for Episode of Care: established 03/23/24 [place] in home exercise program. Met Patient will decrease pain rating by 2 points to meet minimal clinical important difference for numeric pain rating scale. Met Patient will increase active ROM of L ankle to 10df/60pf/40inv/20ev to allow pt to to improve performance of ADLs and to improve gait mechanics / gait pattern . Progressing Patient will demonstrate increase in L ankle strength to 5/5 during manual muscle testing in order to improve function for basic self-care tasks, home management tasks, moderate to heavy functional tasks, prior functional tasks, and work tasks. Progressing Perform work and recreational tasks with decreased report of symptoms/pain in 8 weeks. Progressing Perform walking and ADLs without pain. Progressing Normal gait. Met Time Frame for Goals and Treatment : 06/21/24 Planned Interventions, Frequency, and Duration: 1x every other week, 8 weeks Total Number of Visits Planned: 4 Patient to be seen for Therapeutic exercise (70543), Neuromuscular re-education (12430), Manual therapy (90145), Therapeutic activities (24973), Self-mcfp management (30449), Patient/Family/Caregiver Education, Body Mechanics Training, Gait Training (74671) PLAN FOR NEXT VISIT: BAPRichard in standing, progress strengthening SUBJECTIVE: Patient doing well. His partner noticed and made the comment that he is walking much better and seems to be keeping up now. Toelrated some limited time in dress shoes the other day without issue. Functional Limitations: stair negotiation, heavy exertion, physical activities, recreational activities, running Pain: Pain Pain Level: 1 Pain Location: Heel - Left Description: Tightness Frequency: Intermittent PROMIS Scales 05/04/2024 04/06/2024 02/08/2024 Higher is Better Phys Func - T Score 46 (within normal limits) 40 (mild dysfunction) 33 (moderate dysfunction) Phys Func - Percentile 34 16 4 Self-Eff Symptom - T Score 50 (Average) 41 (Average) Self-Eff Symptom - Percentile 50 18 T-scores: mean of general population = 50. [...] OF FUNCTION: LE AROM L Ankle Dorsiflexion: 11 Degrees (17 soleus) L Ankle Plantar Flexion: 55 Degrees L Ankle Inversion: 35 L Ankle Eversion: 12 LE Strength L Ankle Dorsiflexion (L4): 5/5 L Ankle Plantar Flexion: 4/5 L Ankle Inversion: 4+/5 L Ankle Eversion: 4+/5 TREATMENT: Therapeutic Exercise: 1: *Standing calf raise 2: *Standing dorsiflexion 3: Seated calf and soleus stretch 3x30 sec each 4: Seated recumbent bike x5 min (1:1 entire time, discussed progress towards therapy goals) 5: SLS 3x30 sec 6: Objective mesures obtained Skilled Intervention: Patient was educated in proper exercise technique and purpose for exercises. Skilled judgment was used in selection of appropriate interventions. Provided written instruction for home exercise program to facilitate proper performance and compliance. Correct performance of therapeutic exercises was facilitated with verbal, visual, and tactile cuing. Manual Therapy: 1: IASTM to L gastroc x10 min with push to tolerance Skilled Intervention: Manual skills to improve joint mobility, ROM, and decrease pain. Utilized anatomy knowledge of the therapist, and assessment of patient's response to intervention. Billing Therapeutic Exercise Treatment Minutes: 28 Manual TherapyTreatment Min (more content not included)... [facility] 05-04-2024 History of Present illness Narrative Images from the original note were not included. Episode Visit Count: 5 Therapist That Will Accept/Oversee The Plan Of Care: Enoc Bynum Start of Care Date: 03/23/24 Onset Date: 02/01/24 [facility] PHYSICAL THERAPY PROGRESS REPORT PLAN OF CARE UPDATE: Assessment: Aston Napoles demonstrates significant improvement in rising from a chair, standing, walking, and bending . The patient has progressed toward goals. Patient continues to present with impairments in range of motion, strength, symptom management, and tissue tenderness that interfere with stair negotiation, heavy exertion, physical activities, recreational activities, running . Current prognosis is Good due to: current objective clinical presentation, good overall health status, acuteness of condition, positive past response to therapy, within-session changes, good support system/ coping skills . The patient will benefit from continued skilled therapy services to meet the updated goals for this plan of care as noted below. Goals updated on 05/04/2024. Goals for Episode of Care: established 03/23/24 [place] in home exercise program. Met Patient will decrease pain rating by 2 points to meet minimal clinical important difference for numeric pain rating scale. Met Patient will increase active ROM of L ankle to 10df/60pf/40inv/20ev to allow pt to to improve performance of ADLs and to improve gait mechanics / gait pattern . Progressing Patient will demonstrate increase in L ankle strength to 5/5 during manual muscle testing in order to improve function for basic self-care tasks, home management tasks, moderate to heavy functional tasks, prior functional tasks, and work tasks. Progressing Perform work and recreational tasks with decreased report of symptoms/pain in 8 weeks. Progressing Perform walking and ADLs without pain. Progressing Normal gait. Met Time Frame for Goals and Treatment : 06/21/24 Planned Interventions, Frequency, and Duration: 1x every other week, 8 weeks Total Number of Visits Planned: 4 Patient to be seen for Therapeutic exercise (90824), Neuromuscular re-education (91007), Manual therapy (90916), Therapeutic activities (50472), Self-mcfp management (14652), Patient/Family/Caregiver Education, Body Mechanics Training, Gait Training (05325) PLAN FOR NEXT VISIT: BAPRichard in standing, progress strengthening SUBJECTIVE: Patient doing well. His partner noticed and made the comment that he is walking much better and seems to be keeping up now. Toelrated some limited time in dress shoes the other day without issue. Functional Limitations: stair negotiation, heavy exertion, physical activities, recreational activities, running Pain: Pain Pain Level: 1 Pain Location: Heel - Left Description: Tightness Frequency: Intermittent PROMIS Scales 05/04/2024 04/06/2024 02/08/2024 Higher is Better Phys Func - T Score 46 (within normal limits) 40 (mild dysfunction) 33 (moderate dysfunction) Phys Func - Percentile 34 16 4 Self-Eff Symptom - T Score 50 (Average) 41 (Average) Self-Eff Symptom - Percentile 50 18 T-scores: mean of general population = 50. [...] OF FUNCTION: LE AROM L Ankle Dorsiflexion: 11 Degrees (17 soleus) L Ankle Plantar Flexion: 55 Degrees L Ankle Inversion: 35 L Ankle Eversion: 12 LE Strength L Ankle Dorsiflexion (L4): 5/5 L Ankle Plantar Flexion: 4/5 L Ankle Inversion: 4+/5 L Ankle Eversion: 4+/5 TREATMENT: Therapeutic Exercise: 1: *Standing calf raise 2: *Standing dorsiflexion 3: Seated calf and soleus stretch 3x30 sec each 4: Seated recumbent bike x5 min (1:1 entire time, discussed progress towards therapy goals) 5: SLS 3x30 sec 6: Objective mesures obtained Skilled Intervention: Patient was educated in proper exercise technique and purpose for exercises. Skilled judgment was used in selection of appropriate interventions. Provided written instruction for home exercise program to facilitate proper performance and compliance. Correct performance of therapeutic exercises was facilitated with verbal, visual, and tactile cuing. Manual Therapy: 1: IASTM to L gastroc x10 min with push to tolerance Skilled Intervention: Manual skills to improve joint mobility, ROM, and decrease pain. Utilized anatomy knowledge of the therapist, and assessment of patient's response to intervention. Billing Therapeutic Exercise Treatment Minutes: 28 Manual TherapyTreatment Minutes: 11 Skilled Treatment Time Minutes (timed and untimed codes): 39 Total Session Time (minutes): 39 Session Start Time : 734 Session Stop Time : 813 Enoc Bynum PT Program_ID:[id number] Access Code: [email or web address] URL: [email or web address] Date: 05-04-2024 Prepared By: Enoc Bynum Program Notes Exercises - Seated Calf Stretch with Strap - 3 x daily - 7 x weekly - 1 sets - 3 reps - Seated Soleus Stretch with Strap - 3 x daily - 7 x weekly - 1 sets - 3 reps - Towel Scrunches - 1 x daily - 7 x weekly - 3 sets - 10 reps - Seated Ankle Alphabet - 3 x daily - 7 x weekly - 1 sets - 1 reps - Long Sitting Ankle Eversion with Resistance - 1 x daily - 7 x weekly - 3 sets - 20 reps - Long Sitting Ankle Inversion with Resistance - 1 x daily - 7 x weekly - 3 sets - 20 reps - Single Leg Stance - 1 x daily - 7 x weekly - 1 sets - 3 reps - Heel Raises with Counter Support - 1 x daily - 7 x weekly - 3 sets - 20 reps - Heel Toe Raises with Counter Support - 1 x daily - 7 x weekly - 3 sets - 20 reps documented in this encounter [facility] 04-27-2024 Instructions Chelsey Garcia MA - 04/27/2024 3:14 PM EST CARE FOR YOUR BIOPSY SITE Please follow these instructions for daily wound care: Keep the area clean and dry with the bandage in place the day of the procedure. Wash the area every day with gentle soap and water. You may shower, but do NOT soak in a bathtub, hot tub, pool, alonzo, or etc. until after the wound has healed. Apply a thin layer of Vaseline or Aquaphor to the wound site to keep the area slightly greasy at all time (this helps to prevent scabbing). Studies show that wounds heal better when covered with ointment and a dressing. DO NOT USE NEOSPORIN, BACITRACIN, or other similar products as there is a fairly high incidence of allergic response to these products. Please also AVOID an old tub of ointment as this can introduce germs into your wound and cause infection. Cover with a bandage and continue this daily process until the wound is healed. If you experience any bleeding, please apply pressure to the area for approximately 10 minutes. You may experience some mild discomfort, redness, swelling, and/or a clear discharge from the wound after your procedure. Severe pain, worsening swelling, and foul-smelling discharge from the site are NOT to be expected. Biopsy results can take up to a week, we will contact you accordingly, either via [employer] or telephone call. If you have any questions or concerns, please send your provider a [employer] message or contact the [place] office at [phone]. documented in this encounter [facility] 04-27-2024 History of Present illness Narrative Images from the original note were not included. ASSESSMENT & PLAN 1. Neoplasm of uncertain behavior of skin Right Nasal Sidewall 4 mm pink firm papule with arborizing blood vessel SKIN / NAIL BIOPSY Type of biopsy: tangential Informed consent: discussed and consent obtained Timeout: patient name, date of , surgical site, and procedure verified Procedure prep: Patient was prepped and draped in usual sterile fashion Prep type: Isopropyl alcohol Anesthesia: the lesion was anesthetized in a standard fashion Anesthetic: 1% lidocaine w/ epinephrine 1-100,000 local infiltration Instrument used: DermaBlade Hemostasis achieved with: pressure and aluminum chloride Outcome: patient tolerated procedure well Post-procedure details: sterile dressing applied and wound care instructions given Dressing type: bandage and petrolatum Additional details: Procedure to be Performed: Shave Medication administered: 1% lidocaine w/epinephrine 1:100,000 local Medication verification (double check) performed with: Dr. Davis Board Winder: [place] LOT: [id number] EXP: 09/2025 Administered: 0.3 mL Specimen A - Surgical Pathology R/O: R/O: Angiofibroma vs basal cell carcinoma - Malignancy could not be excluded based on clinical examination. A shave biopsy will be performed today for histologic confirmation. - Risks include but are not limited to pain, bleeding, scarring, and infection. - Pt gave verbal consent. - R/O: Angiofibroma vs basal cell carcinoma - Follow-up: Pending pathology Related Medications lidocaine 1%-EPINEPHrine 1:100,000 0.3 mL injection 2. Lichen simplex chronicus Anterior Scrotum, Left Scrotum, Posterior Scrotum, Right Scrotum lichenified plaque with excoriations and scale - Status: chronic, unstable - Patient was previously seen by Lali Lam where he was treated with both Tremfya and Taltz. He says his itching and scrotum were improved while on Tremfya. Of note, the patient has no signs of psoriasis today, and the scrotum starts off as itchy before the plaque presents. - Lichen simplex chronicus (LSC) is the result of a chronic itch-scratch cycle often secondary to another process. To gain control of this condition, we must address the underlying cause and decrease inflammation in the affected skin that perpetuates the problem. - Apply triamcinolone 0.1% cream as directed. Risks, benefits and alternatives discussed. For further review of side effects, we directed patient to the package insert(s). Do not apply at least 2 weeks prior to next visit - Discussed the importance of dry skin care because dry skin can be itchy and develop rashes. We recommend - bathe daily, keep bathing <10 minutes, use lukewarm water, use sensitive, fragrance-free soaps like Dove, pat dry, and apply a moisturizer or Vaseline/Aquaphor immediately after patting dry. Additionally, we recommend using All Clear for washing clothes. - Follow-up: 12 weeks triamcinolone acetonide (KENALOG) 0.1 % cream - Anterior Scrotum, Left Scrotum, Posterior Scrotum, Right Scrotum Apply 1 application to affected area two times a day. Apply twice daily from the neck down including the scrotum. 3. Xerosis cutis dry xerotic scale Xerosis cutis means dry skin and dry skin can lead to pruritic (ie, itchy), sensitive skin. - Status: self-limited, minor problem with associated pruritus of the skin. Improvement with psoriasis medications but no signs of psoriasis make an underlying etiology like atopic dermatitis possible. - Discussed the importance of dry skin care because dry skin can be itchy and develop rashes. We recommend - bathe daily, keep bathing <10 minutes, use lukewarm water, use sensitive, fragrance-free soaps like Dove, pat dry, and apply a moisturizer or Vaseline/Aquaphor immediately after patting dry. Additionally, we recommend using All Clear for washing clothes. - Apply triamcinolone as directed for the pruritus. Risks, benefits and alternatives discussed. For further review of side effects, we directed patient to the package insert(s). - Follow-up: as needed. 4. Pruritus of skin Related Medications triamcinolone acetonide (KENALOG) 0.1 % cream Apply 1 application to affected area two times a day. Apply twice daily from the neck down including the scrotum. UNIVERSAL PROTOCOL / SAFETY CHECKLIST Procedure to be Performed: Shave x 1 Sign In: A Moment of CARE was completed. Personnel directly involved with the procedure wore the appropriate PPE (Personal Protective Equipment). Patient/Surrogate Stated/Verified: PATIENT VERIFIED (optional for EMERGENT procedures): Patient name, Date of , Relevant allergies, and The intended procedure Time Out Communication: Intended patient and procedure match the source documents. Consent documented and matches the intended procedure. Relevant labs, photos, and/or imaging studies have been reviewed. Correct side/site marked and visible. Medications required for procedure verified. Sign Out: SIGN OUT (optional for EMERGENT procedures): All specimen containers correctly labeled. All instruments, equipment, possible retained foreign bodies accounted for. Post-procedure follow-up management communicated and Plan of Care Visit completed when applicable. Chelsey Garcia MA Follow Up: 3 months Attestation: The documentation for this note was completed by Chelsey Garcia MA acting as scribe for Ezequiel Davis MD. Electronically Signed: Chelsey Garcia MA on April 27, 2024 2:58 PM. I have seen and examined the patient. I agree with the Chief Complaint, ROS, and Past Histories independently gathered by the clinical applications support specialist and the remaining scribed note accurately describes my personal service to the patient. Ezequiel Davis MD Department of Dermatology Medical Decision Making: Problems: Moderate: New problem with uncertain prognosis Risk: Moderate: Drug management Medical Decision Making Level: 4 - Moderate SUBJECTIVE/OBJECTIVE NEW PATIENT 04/27/2024 Last Visit to [facility] Dermatology: Visit date not found Reason(s) for Visit/History of Present Illness (HPI): Aston Napoles is a 49 year old male. No chief complaint on file. # Dry skin - Where is the issue located (location)?: generalize including groin - How long has it been affecting them (duration)?: years - What symptoms are they experiencing (eg, pain, itching, burning)?: dryness and itchy patches - What treatments are they currently using?: Nothing - What treatments have they used in the past? Sherron, triamcinolones 0.1% cream - Has this ever happened before? Yes If yes, ask them what was it called before? Psoriasis - Any additional details? yes - Positive for achy joints and swelling and stiffness in the fingers PAST MEDICAL HISTORY Diagnosis Date Achilles tendinitis of left lower extremity 12/19/2023 Anxiety and depression 02/27/2018 HLD (hyperlipidemia) 08/04/2023 [...] Comment: once a month Drug use: Never ALLERGIES Allergen Reactions Compazine [Prochlor* Other: See Comments Jittery feeling Current Outpatient Medications Medication Sig sildenafil (VIAGRA) 50 mg tablet Take 1 tablet by mouth once daily as needed. Take 30-60 minutes before sexual activity. Take on an empty stomach. meloxicam (MOBIC) 15 mg tablet Take 1 tablet by mouth daily with food. Cholecalciferol, Vitamin D3, (VITAMIN D) 25 mcg (1,000 unit) cap Take 1,000 Units by mouth once daily. triamcinolone acetonide (KENALOG) 0.1 % cream Apply 1 application to affected area two times a day. clotrimazole-betamethasone (LOTRISONE) cream Apply to affected area [...] mouth two times a day. 10 MG ROS: As per HPI. PHYSICAL EXAM: [place] Skin Type: II Pleasant male in no apparent distress. Alert and oriented x 3. Appears well developed, well nourished, and in otherwise good health. Appropriate mood and affect. A skin exam of the (full body) scalp, face, ears, neck, chest, abdomen, back, bilateral upper extremities, bilateral lower extremities, buttocks, hands, feet, and nails was performed, with pertinent findings as noted in A&P. The sensitive examination was discussed with the Patient or Patient's Authorized Linen Room Houseperson. As applicable, any other physician, advance practice provider, medical student, or other health professional student that will be observing or involved in the sensitive examination for educational or training purposes was discussed with the Patient or Authorized Linen Room Houseperson. The Patient or Authorized Linen Room Houseperson has agreed to proceed with the sensitive examination. (Sensitive examination includes inspection and/or palpation of the breasts, pelvis, prostate and anorectal regions) documented in this encounter [facility] 04-27-2024 Note HNO ID: [id number] Author: EZEQUIEL DAVIS MD Service: ? Author Type: Physician Type: Progress Notes Filed: 04/27/2024 16:19 Note Text: ASSESSMENT AND PLAN 1. Neoplasm of uncertain behavior of skin Right Nasal Sidewall 4 mm pink firm papule with arborizing blood vessel SKIN / NAIL BIOPSY Type of biopsy: tangential Informed consent: discussed and consent obtained Timeout: patient name, date of , surgical site, and procedure verified Procedure prep: Patient was prepped and draped in usual sterile fashion Prep type: Isopropyl alcohol Anesthesia: the lesion was anesthetized in a standard fashion Anesthetic: 1% lidocaine w/ epinephrine 1-100,000 local infiltration Instrument used: DermaBlade Hemostasis achieved with: pressure and aluminum chloride Outcome: patient tolerated procedure well Post-procedure details: sterile dressing applied and wound care instructions given Dressing type: bandage and petrolatum Additional details: Procedure to be Performed: Shave Medication administered: 1% lidocaine w/epinephrine 1:100,000 local Medication verification (double check) performed with: Dr. Davis Board Winder: [place] LOT: [id number] EXP: 09/2025 Administered: 0.3 mL Specimen A - Surgical Pathology R/O: R/O: Angiofibroma vs basal cell carcinoma - Malignancy could not be excluded based on clinical examination. A shave biopsy will be performed today for histologic confirmation. - Risks include but are not limited to pain, bleeding, scarring, and infection. - Pt gave verbal consent. - R/O: Angiofibroma vs basal cell carcinoma - Follow-up: Pending pathology Related Medications lidocaine 1%-EPINEPHrine 1:100,000 0.3 mL injection 2. Lichen simplex chronicus Anterior Scrotum, Left Scrotum, Posterior Scrotum, Right Scrotum lichenified plaque with excoriations and scale - Status: chronic, unstable - [facility] he was treated with both Tremfya and Taltz. He says his itching and scrotum were improved while on Tremfya. Of note, the patient has no signs of psoriasis today, and the scrotum starts off as itchy before the plaque presents. - Lichen simplex chronicus (LSC) is the result of a chronic itch-scratch cycle often secondary to another process. To gain control of this condition, we must address the underlying cause and decrease inflammation in the affected skin that perpetuates the problem. - Apply triamcinolone 0.1% cream as directed. Risks, benefits and alternatives discussed. For further review of side effects, we directed patient to the package insert(s). Do not apply at least 2 weeks prior to next visit - Discussed the importance of dry skin care because dry skin can be itchy and develop rashes. We recommend - bathe daily, keep bathing <10 minutes, use lukewarm water, use sensitive, fragrance-free soaps like Dove, pat dry, and apply a moisturizer or Vaseline/Aquaphor immediately after patting dry. Additionally, we recommend using All Clear for washing clothes. - Follow-up: 12 weeks triamcinolone acetonide (KENALOG) 0.1 % cream - Anterior Scrotum, Left Scrotum, Posterior Scrotum, Right Scrotum Apply 1 application to affected area two times a day. Apply twice daily from the neck down including the scrotum. 3. Xerosis cutis dry xerotic scale Xerosis cutis means dry skin and dry skin can lead to pruritic (ie, itchy), sensitive skin. - Status: self-limited, minor problem with associated pruritus of the skin. Improvement with psoriasis medications but no signs of psoriasis make an underlying etiology like atopic dermatitis possible. - Discussed the importance of dry skin care because dry skin can be itchy and develop rashes. We recommend - bathe daily, keep bathing <10 minutes, use lukewarm water, use sensitive, fragrance-free soaps like Dove, pat dry, and apply a moisturizer or Vaseline/Aquaphor immediately after patting dry. Additionally, we recommend using All Clear for washing clothes. - Apply triamcinolone as directed for the pruritus. Risks, benefits and alternatives discussed. For further review of side effects, we directed patient to the package insert(s). - Follow-up: as needed. 4. Pruritus of skin Related Medications triamcinolone acetonide (KENALOG) 0.1 % cream Apply 1 application to affected area two times a day. Apply twice daily from the neck down including the scrotum. UNIVERSAL PROTOCOL / SAFETY CHECKLIST Procedure to be Performed: Shave x 1 Sign In: A Moment of CARE was completed. Personnel directly involved with the procedure wore the appropriate PPE (Personal Protective Equipment). Patient/Surrogate Stated/Verified: PATIENT VERIFIED (optional for EMERGENT procedures): Patient name, Date of , Relevant allergies, and The intended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 RECORDS: MRI IAC: * Grossly unremarkable appearance of the bilateral cerebellopontine angle cisterns and inner ear structures. No abnormal enhancement on post infusion images. No discrete mass lesion. Edward Ravi MD This note was partially generated using [employer] voice recognition system. Please note that occasional health and wellness instructor errors may be made. documented in this encounter [facility] 04-06-2024 Note HNO ID: [id number] Author: ENOC BYNUM, PT Service: ? Author Type: Physical Therapist Type: Progress Notes Filed: 04/06/2024 14:27 Note Text: Episode Visit Count: 3 Therapist That Will Accept/Oversee The Plan Of Care: Enoc Bynum Start of Care Date: 03/23/24 Onset Date: 02/01/24 REHABILITATION AND SPORTS THERAPY PHYSICAL THERAPY TREATMENT NOTE ASSESSMENT: Aston Napoles tolerated the session with no issues. He demonstrated improvements in tolerance for strengthening exercises and improved ankle range of motion. The patient will continue to benefit from ongoing skilled physical therapy to progress toward set goals. PLAN FOR NEXT VISIT: SUBJECTIVE: Patient doing well, no issues Pain: Pain Pain Level: 1 Pain Location: Heel - Left Description: Tightness Frequency: Intermittent OBJECTIVE MEASURES WITH LEVEL OF FUNCTION: LE AROM L Ankle Dorsiflexion: 10 Degrees (13 soleus) TREATMENT: Therapeutic Exercise: 1: Recumbent bike seat 6, no reisstance x5 min (1:1, discussed HEP, progression of walking and tolerance for ADLs) 2: Gastroc stretch 3x30 sec 3: Soleus stretch 3x30 sec 4: Ankle alphabet 3x 5: BAPS level 4 df/pf, inv/ev, circles cw/ccw 2x20 each way 6: *4 way PuTB ankle strengthening 3x[address] way 7: *SLS 3x30 sec Skilled Intervention: Patient was educated in proper exercise technique and purpose for exercises. Skilled judgment was used in selection of appropriate interventions. Provided written instruction for home exercise program to facilitate proper performance and compliance. Correct performance of therapeutic exercises was facilitated with verbal, visual, and tactile cuing. Billing Therapeutic Exercise Treatment Minutes: 30 Skilled Treatment Time Minutes (timed and untimed codes): 30 Total Session Time (minutes): 30 Session Start Time : 1348 Session Stop Time : 1418 Enoc Bynum, PT [facility] 04-06-2024 History of Present illness Narrative Episode Visit Count: 3 Therapist That Will Accept/Oversee The Plan Of Care: Enoc Bynum Start of Care Date: 03/23/24 Onset Date: 02/01/24 REHABILITATION AND SPORTS THERAPY PHYSICAL THERAPY TREATMENT NOTE ASSESSMENT: Aston Rendonuggs tolerated the session with no issues. He demonstrated improvements in tolerance for strengthening exercises and improved ankle range of motion. The patient will continue to benefit from ongoing skilled physical therapy to progress toward set goals. PLAN FOR NEXT VISIT: SUBJECTIVE: Patient doing well, no issues Pain: Pain Pain Level: 1 Pain Location: Heel - Left Description: Tightness Frequency: Intermittent OBJECTIVE MEASURES WITH LEVEL OF FUNCTION: LE AROM L Ankle Dorsiflexion: 10 Degrees (13 soleus) TREATMENT: Therapeutic Exercise: 1: Recumbent bike seat 6, no reisstance x5 min (1:1, discussed HEP, progression of walking and tolerance for ADLs) 2: Gastroc stretch 3x30 sec 3: Soleus stretch 3x30 sec 4: Ankle alphabet 3x 5: BAPS level 4 df/pf, inv/ev, circles cw/ccw 2x20 each way 6: *4 way PuTB ankle strengthening 3x[address] 7: *SLS 3x30 sec Skilled Intervention: Patient was educated in proper exercise technique and purpose for exercises. Skilled judgment was used in selection of appropriate interventions. Provided written instruction for home exercise program to facilitate proper performance and compliance. Correct performance of therapeutic exercises was facilitated with verbal, visual, and tactile cuing. Billing Therapeutic Exercise Treatment Minutes: 30 Skilled Treatment Time Minutes (timed and untimed codes): 30 Total Session Time (minutes): 30 Session Start Time : 1348 Session Stop Time : 1418 Enoc Bynum PT Program_ID:[id number] Access Code: [email or web address] URL: [email or web address] Date: 04-06-2024 Prepared By: Enoc Bynum Program Notes Exercises - Seated Calf Stretch with Strap - 3 x daily - 7 x weekly - 1 sets - 3 reps - Seated Soleus Stretch with Strap - 3 x daily - 7 x weekly - 1 sets - 3 reps - Ankle Inversion Eversion Towel Slide - 1 x daily - 7 x weekly - 3 sets - 20 reps - Towel Scrunches - 1 x daily - 7 x weekly - 3 sets - 10 reps - Seated Ankle Alphabet - 3 x daily - 7 x weekly - 1 sets - 1 reps - Long Sitting Ankle Eversion with Resistance - 1 x daily - 7 x weekly - 3 sets - 20 reps - Long Sitting Ankle Inversion with Resistance - 1 x daily - 7 x weekly - 3 sets - 20 reps - Long Sitting Ankle Plantar Flexion with Resistance - 1 x daily - 7 x weekly - 3 sets - 20 reps - Long Sitting Ankle Dorsiflexion with Anchored Resistance - 1 x daily - 7 x weekly - 3 sets - 20 reps - Single Leg Stance - 1 x daily - 7 x weekly - 1 sets - 3 reps documented in this encounter [facility] 03-29-2024 History of Present illness Narrative This note was created using [employer]riter. Subjective Aston Napoles is a 49 year old male who presents with complaint of URI, sinus symptoms, sore throat, nasal congestion, post nasal drip, ear pain left , cough- nonproductive, and fever for 4 days. He denies dyspnea, wheezing, trouble swallowing, nausea, vomiting, and diarrhea. Treatments tried include Ibuprofen and Nyquil and Dayquil with partial relief of symptoms. Review of Systems Per HPI. 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 Hld (Hyperlipidemia) Psoriasis Vitamin D Deficiency Chronic Heel Pain, Left Achilles Tendinitis of Left Lower Extremity History of Seizures Social History Tobacco Use Smoking status: Never Smokeless tobacco: Never Vaping Use Vaping status: Never Used Substance Use Topics Alcohol use: Yes Comment: once a month Drug use: Never Current Outpatient Medications Medication Sig Cholecalciferol, Vitamin D3, (VITAMIN D) 25 mcg (1,000 unit) cap Take 1,000 Units by mouth once daily. triamcinolone acetonide (KENALOG) 0.1 % cream Apply 1 application to affected area two times a day. clotrimazole-betamethasone (LOTRISONE) cream Apply to affected area two times a day as needed. fluticasone (FLONASE) 50 mcg/actuation nasal spray Use 2 Sprays in each nostril once daily. Rinse mouth after use. naproxen sodium (ALEVE ORAL) Take 1 tablet [...] mouth two times a day. 10 MG No current facility-administered medications for this visit. Objective BP 136/88 (BP Site: Left Arm, BP Position: Sitting, BP Cuff Size: Large Adult) Pulse 84 Temp (!) 38.2 C (100.8 F) (Temporal) Resp 20 Wt 99.7 kg (219 lb 12.8 oz) BMI 34.43 kg/m Physical Exam Constitutional: General: He is not in acute distress. Appearance: He is ill-appearing. HENT: Right Ear: Tympanic membrane normal. No tenderness. Left Ear: No tenderness. No middle ear effusion. Tympanic membrane is erythematous. Nose: Mucosal edema present. No congestion. Right Turbinates: Not swollen. Left Turbinates: Swollen. Right Sinus: No maxillary sinus tenderness or frontal sinus tenderness. Left Sinus: No maxillary sinus tenderness or frontal sinus tenderness. Mouth/Throat: Pharynx: Posterior oropharyngeal erythema present. No oropharyngeal exudate. Eyes: Conjunctiva/sclera: Conjunctivae normal. Cardiovascular: Heart sounds: Normal heart sounds. Pulmonary: Breath sounds: Normal breath sounds. No wheezing, rhonchi or rales. Lymphadenopathy: Cervical: No cervical adenopathy. Neurological: Mental Status: He is alert. Assessment and Plan 1. Viral upper respiratory tract infection - ICD9: 465.9, ICD10: J06.9 - Discussed viral etiology and rationale for treatment. - Symptomatic treatment with prn analgesia - Supportive care with fluids and rest - The patient may also use benzonatate he has on hand from a previous prescription. - Follow up if symptoms persist or sooner if worsening of symptoms - COVID & INFLUENZA A/B & RSV PCR, ROUTINE - We discussed potential treatment with Paxlovid by tomorrow if positive. He has taken Paxlovid in the past. Francisco Javier Osorio MD documented in this encounter [facility] 03-29-2024 Note HNO ID: [id number] Author: FRANCISCO JAVIER OSORIO MD Service: ? Author Type: Physician Type: Progress Notes Filed: 03/29/2024 10:46 Note Text: This note was created using [employer]riter. Subjective Aston Naploes is a 49 year old male who presents with complaint of URI, sinus symptoms, sore throat, nasal congestion, post nasal drip, ear pain left , cough- nonproductive, and fever for 4 days. He denies dyspnea, wheezing, trouble swallowing, nausea, vomiting, and diarrhea. Treatments tried include Ibuprofen and Nyquil and Dayquil with partial relief of symptoms. Review of Systems Per HPI. 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 Hld (Hyperlipidemia) Psoriasis Vitamin D Deficiency Chronic Heel Pain, Left Achilles Tendinitis of Left Lower Extremity History of Seizures Social History Tobacco Use Smoking status: Never Smokeless tobacco: Never Vaping Use Vaping status: Never Used Substance Use Topics Alcohol use: Yes Comment: once a month Drug use: Never Current Outpatient Medications Medication Sig Cholecalciferol, Vitamin D3, (VITAMIN D) 25 mcg (1,000 unit) cap Take 1,000 Units by mouth once daily. triamcinolone acetonide (KENALOG) 0.1 % cream Apply 1 application to affected area two times a day. clotrimazole-betamethasone (LOTRISONE) cream Apply to affected area two times a day as needed. fluticasone (FLONASE) 50 mcg/actuation nasal spray Use 2 Sprays in each nostril once daily. Rinse mouth after use. naproxen sodium (ALEVE ORAL) Take 1 tablet [...] mouth two times a day. 10 MG No current facility-administered medications for this visit. Objective BP 136/88 (BP Site: Left Arm, BP Position: Sitting, BP Cuff Size: Large Adult) Pulse 84 Temp (!) 38.2 ?C (100.8 ?F) (Temporal) Resp 20 Wt 99.7 kg (219 lb 12.8 oz) BMI 34.43 kg/m? Physical Exam Constitutional: General: He is not in acute distress. Appearance: He is ill-appearing. HENT: Right Ear: Tympanic membrane normal. No tenderness. Left Ear: No tenderness. No middle ear effusion. Tympanic membrane is erythematous. Nose: Mucosal edema present. No congestion. Right Turbinates: Not swollen. Left Turbinates: Swollen. Right Sinus: No maxillary sinus tenderness or frontal sinus tenderness. Left Sinus: No maxillary sinus tenderness or frontal sinus tenderness. Mouth/Throat: Pharynx: Posterior oropharyngeal erythema present. No oropharyngeal exudate. Eyes: Conjunctiva/sclera: Conjunctivae normal. Cardiovascular: Heart sounds: Normal heart sounds. Pulmonary: Breath sounds: Normal breath sounds. No wheezing, rhonchi or rales. Lymphadenopathy: Cervical: No cervical adenopathy. Neurological: Mental Status: He is alert. Assessment and Plan 1. Viral upper respiratory tract infection - ICD9: 465.9, ICD10: J06.9 - Discussed viral etiology and rationale for treatment. - Symptomatic treatment with prn analgesia - Supportive care with fluids and rest - The patient may also use benzonatate he has on hand from a previous prescription. - Follow up if symptoms persist or sooner if worsening of symptoms - COVID AND INFLUENZA A/B AND RSV PCR, ROUTINE - We discussed potential treatment with Paxlovid by tomorrow if positive. He has taken Paxlovid in the past. Francisco Javier Osorio MD [facility] 03-29-2024 Note HNO ID: [id number] Author: ENOC BYNUM PT Service: ? Author Type: Physical Therapist Type: Progress Notes Filed: 03/29/2024 09:58 Note Text: Episode Visit Count: 2 Therapist That Will Accept/Oversee The Plan Of Care: Enoc Bynum Start of Care Date: 03/23/24 Onset Date: 02/01/24 REHABILITATION AND SPORTS THERAPY PHYSICAL THERAPY TREATMENT NOTE ASSESSMENT: Aston Napoles tolerated the session with no issues. He demonstrated improvements in gait and tolerance for exercises. The patient will continue to benefit from ongoing skilled physical therapy to progress toward set goals. PLAN FOR NEXT VISIT: May try band resisted 4 ways ankle strengthening SUBJECTIVE: Patient doing well today. he found work appropriate crocks that don't rub against his incision, and this has helped his walking he feels Pain: Pain Pain Level: 2 Pain Location: Heel - Left Description: Tightness, Aching Frequency: Continuous OBJECTIVE MEASURES WITH LEVEL OF FUNCTION: TREATMENT: Therapeutic Exercise: 1: Recumbent bike seat 8, no reisstance x5 min (discussed HEP, patient provided update) 2: Gastroc stretch 3x30 sec 3: Soleus stretch 3x30 sec 4: BAPS level 3 df/pf, inv/ev, circles cw/ccw 2x[address] 5: Ankle alphabet 3x Skilled Intervention: Patient was educated in proper exercise technique and purpose for exercises. Skilled judgment was used in selection of appropriate interventions. Correct performance of therapeutic exercises was facilitated with verbal and visual cuing. Manual Therapy: 1: Superficial effleurage x10 Skilled Intervention: Manual skills to improve joint mobility, ROM, and decrease pain. Utilized anatomy knowledge of the therapist, and assessment of patient's response to intervention. Gait Trainin: Ambulation around gym with cuing for proper push off at toe off Skilled Intervention: Facilitated proper gait cycle with the use of verbal and visual cues for correction of gait deviations identified in the objective section above. Billing Therapeutic Exercise Treatment Minutes: 26 Manual TherapyTreatment Minutes: 10 Gait Training Treatment Minutes: 3 Skilled Treatment Time Minutes (timed and untimed codes): 39 Total Session Time (minutes): 39 Session Start Time : 1530 Session Stop Time : 1609 Enoc Bynum PT [facility] 03-29-2024 History of Present illness Narrative Episode Visit Count: 2 Therapist That Will Accept/Oversee The Plan Of Care: Enoc Bynum Start of Care Date: 03/23/24 Onset Date: 02/01/24 REHABILITATION AND SPORTS THERAPY PHYSICAL THERAPY TREATMENT NOTE ASSESSMENT: Aston Napoles tolerated the session with no issues. He demonstrated improvements in gait and tolerance for exercises. The patient will continue to benefit from ongoing skilled physical therapy to progress toward set goals. PLAN FOR NEXT VISIT: May try band resisted 4 ways ankle strengthening SUBJECTIVE: Patient doing well today. he found work appropriate crocks that don't rub against his incision, and this has helped his walking he feels Pain: Pain Pain Level: 2 Pain Location: Heel - Left Description: Tightness, Aching Frequency: Continuous OBJECTIVE MEASURES WITH LEVEL OF FUNCTION: TREATMENT: Therapeutic Exercise: 1: Recumbent bike seat 8, no reisstance x5 min (discussed HEP, patient provided update) 2: Gastroc stretch 3x30 sec 3: Soleus stretch 3x30 sec 4: BAPS level 3 df/pf, inv/ev, circles cw/ccw 2x[address] 5: Ankle alphabet 3x Skilled Intervention: Patient was educated in proper exercise technique and purpose for exercises. Skilled judgment was used in selection of appropriate interventions. Correct performance of therapeutic exercises was facilitated with verbal and visual cuing. Manual Therapy: 1: Superficial effleurage x10 Skilled Intervention: Manual skills to improve joint mobility, ROM, and decrease pain. Utilized anatomy knowledge of the therapist, and assessment of patient's response to intervention. Gait Trainin: Ambulation around gym with cuing for proper push off at toe off Skilled Intervention: Facilitated proper gait cycle with the use of verbal and visual cues for correction of gait deviations identified in the objective section above. Billing Therapeutic Exercise Treatment Minutes: 26 Manual TherapyTreatment Minutes: 10 Gait Training Treatment Minutes: 3 Skilled Treatment Time Minutes (timed and untimed codes): 39 Total Session Time (minutes): 39 Session Start Time : 1530 Session Stop Time : 1609 Enoc Bynum PT documented in this encounter [facility] 03-29-2024 Note HNO ID: [id number] Author: GARY WALTON APRN.CARINA Service: ? Author Type: Nurse Practitioner Type: Progress Notes Filed: 03/29/2024 08:50 Note Text: Telemedicine Visit - Distance Health Virtual Visit Note Patient seen on [employer] Video Visit platform. Location of patient: [place] I have communicated my name and active licensure. The patient's identity and physical location were verified at the time of this visit. Either the patient or their legal medical service representative has been informed of the risks and benefits of -- and alternatives to -- treatment through a remote evaluation and consents to proceed with the evaluation remotely. History of Present Illness Aston Napoles is a 49 year old male with PMH of left ear pressure, left eustachian tube dysfunction, bilat chronic eczematous otitis externa, recurrent otitis media who presents for the past 3 days with symptoms that are:. Positive for low grade fever (99.3F), left ear pain, sore throat, watery eyes, cough. Patient concerned for possible left ear infection. Patient is pleasant, alert, speaking in full sentences, non-toxic appearing. Advised on limitations of [facility] service. Recommend in-person evaluation today (would benefit from otoscopic exam); reviewed calling appt line for first available internal/family medicine appt or going to [facility]. Patient is agreeable. Appointment cancelled and fee waived. Gary Walton APRN.CARINA [facility] 03-29-2024 History of Present illness Narrative Telemedicine Visit - Distance Health Virtual Visit Note Patient seen on [employer] Video Visit platform. Location of patient: [place] I have communicated my name and active licensure. The patient's identity and physical location were verified at the time of this visit. Either the patient or their legal medical service representative has been informed of the risks and benefits of -- and alternatives to -- treatment through a remote evaluation and consents to proceed with the evaluation remotely. History of Present Illness Aston Napoles is a 49 year old male with PMH of left ear pressure, left eustachian tube dysfunction, bilat chronic eczematous otitis externa, recurrent otitis media who presents for the past 3 days with symptoms that are:. Positive for low grade fever (99.3F), left ear pain, sore throat, watery eyes, cough. Patient concerned for possible left ear infection. Patient is pleasant, alert, speaking in full sentences, non-toxic appearing. Advised on limitations of [email or web address] [facility] service. Recommend in-person evaluation today (would benefit from otoscopic exam); reviewed calling appt line for first available internal/family medicine appt or going to [email or web address] [facility]. Patient is agreeable. Appointment cancelled and fee waived. Gary Walton APRN.CARINA documented in this encounter [facility] 03-23-2024 Note HNO ID: [id number] Author: ENOC BYNUM PT Service: ? Author Type: Physical Therapist Type: Progress Notes Filed: 03/23/2024 15:46 Note Text: Episode Visit Count: 1 Therapist That Will Accept/Oversee The Plan Of Care: Enoc Bynum Start of Care Date: 03/23/24 Onset Date: 02/01/24 Patient Identified by Name and Date of : Yes REHABILITATION AND SPORTS THERAPY PHYSICAL THERAPY EVALUATION PLAN OF CARE: Assessment: Aston Napoles presents with diagnosis of L achilles repair that interferes with walking in the community, heavy exertion, physical activities, recreational activities, running . The patient presents with impairments in ADL's, gait, independence in exercise, overall function, range of motion, strength, symptom management, tissue tenderness, and wound healing. PROMIS? (Patient-Reported Outcomes Measurement Information System) scores were reviewed and identified as a rehabilitation concern. Prognosis for therapy is Good due to: current objective clinical presentation, good overall health status, acuteness of condition, positive past response to therapy, within-session changes, good support system/ coping skills . The patient will benefit from skilled therapy services to meet the goals established for this plan of care as noted below. Goals for Episode of Care: established 03/23/24 [place] in home exercise program. Patient will decrease pain rating by 2 points to meet minimal clinical important difference for numeric pain rating scale. Patient will increase active ROM of L ankle to 10df/60pf/40inv/20ev to allow pt to to improve performance of ADLs and to improve gait mechanics / gait pattern . Patient will demonstrate increase in L ankle strength to 5/5 during manual muscle testing in order to improve function for basic self-care tasks, home management tasks, moderate to heavy functional tasks, prior functional tasks, and work tasks. Perform work and recreational tasks with decreased report of symptoms/pain in 8 weeks. Perform walking and ADLs without pain. Normal gait. Time Frame for Goals and Treatment : 06/21/24 Planned Interventions, Frequency, and Duration: Current Frequency: 1x/week Duration: 12 weeks Total Number of Visits Planned: 12 Planned Treatment Interventions: Therapeutic exercise (18839), Neuromuscular re-education (75861), Manual therapy (72058), Therapeutic activities (14275), Self-mcfp management (97403), Gait Training (88811), Body Mechanics Training PLAN FOR NEXT VISIT: BAPS, continue working on gait Patient demonstrates good understanding of plan of care and treatment. The above goals and plan of care were discussed and agreed upon by patient/family. SUBJECTIVE: Achilles tendom repair 02/01/2024 Functional Limitations: walking in the community, heavy exertion, physical activities, recreational activities, running Prior Level of Function: Independent without limitations Intake Information: Prescription present Pain: Pain Pain Level: 5 Pain Location: Heel - Left Description: Tightness, Aching Frequency: Continuous PROMIS Scales 02/08/2024 12/13/2023 Higher is Better Phys Func - Score 33 (moderate dysfunction) 38 (moderate dysfunction) Phys Func - Percentile 4 12 Self-Eff Symptom - Score 35 (Low) [...] OF FUNCTION: LE AROM L Ankle Dorsiflexion: 2 Degrees L Ankle Plantar Flexion: 45 Degrees L Ankle Inversion: 25 L Ankle Eversion: 5 LE Strength L LE Strength: 4/5 grossly L ankle Education: Education Learning/educational needs: Home exercise program, Plan of Care, Changes in Plan of Care, Gait Training TREATMENT: PT Treatment Interventions: Therapeutic Exercise, Gait Training Evaluation Therapeutic Exercise: 1: *Gastroc stretch 3x30 sec (long sitting) 2: *Soleus stretch 3x30 sec (Long sitting, cuing for no pain, gentle stretch only) 3: *Ankle inversion/eversion with foot on ground over pillow case 3x[address] way 4: *Ankle alphabet 3x 5: *Towel scrunch 3x20 Skilled Intervention: Patient was educated in proper exercise technique and purpose for exercises. Skilled judgment was used in selection of appropriate interventions. Provided written instruction for home exercise program to facilitate proper performance and compliance. Correct performance of therapeutic exercises was facilitated with verbal, visual, and tactile cuing. Gait Trainin: Boot free ambulation around gym with cuing for improved heel to toe ambulation and push off at toe (more content not included)... [facility] 03-23-2024 History of Present illness Narrative Images from the original note were not included. Episode Visit Count: 1 Therapist That Will Accept/Oversee The Plan Of Care: Enoc Bynum Start of Care Date: 03/23/24 Onset Date: 02/01/24 Patient Identified by Name and Date of : Yes REHABILITATION AND SPORTS THERAPY PHYSICAL THERAPY EVALUATION PLAN OF CARE: Assessment: Aston Napoles presents with diagnosis of L achilles repair that interferes with walking in the community, heavy exertion, physical activities, recreational activities, running . The patient presents with impairments in ADL's, gait, independence in exercise, overall function, range of motion, strength, symptom management, tissue tenderness, and wound healing. PROMIS (Patient-Reported Outcomes Measurement Information System) scores were reviewed and identified as a rehabilitation concern. Prognosis for therapy is Good due to: current objective clinical presentation, good overall health status, acuteness of condition, positive past response to therapy, within-session changes, good support system/ coping skills . The patient will benefit from skilled therapy services to meet the goals established for this plan of care as noted below. Goals for Episode of Care: established 03/23/24 [place] in home exercise program. Patient will decrease pain rating by 2 points to meet minimal clinical important difference for numeric pain rating scale. Patient will increase active ROM of L ankle to 10df/60pf/40inv/20ev to allow pt to to improve performance of ADLs and to improve gait mechanics / gait pattern . Patient will demonstrate increase in L ankle strength to 5/5 during manual muscle testing in order to improve function for basic self-care tasks, home management tasks, moderate to heavy functional tasks, prior functional tasks, and work tasks. Perform work and recreational tasks with decreased report of symptoms/pain in 8 weeks. Perform walking and ADLs without pain. Normal gait. Time Frame for Goals and Treatment : 06/21/24 Planned Interventions, Frequency, and Duration: Current Frequency: 1x/week Duration: 12 weeks Total Number of Visits Planned: 12 Planned Treatment Interventions: Therapeutic exercise (86561), Neuromuscular re-education (24560), Manual therapy (84345), Therapeutic activities (36722), Self-mcfp management (68041), Gait Training (18864), Body Mechanics Training PLAN FOR NEXT VISIT: BAPS, continue working on gait Patient demonstrates good understanding of plan of care and treatment. The above goals and plan of care were discussed and agreed upon by patient/family. SUBJECTIVE: Achilles tendom repair 02/01/2024 Functional Limitations: walking in the community, heavy exertion, physical activities, recreational activities, running Prior Level of Function: Independent without limitations Intake Information: Prescription present Pain: Pain Pain Level: 5 Pain Location: Heel - Left Description: Tightness, Aching Frequency: Continuous PROMIS Scales 02/08/2024 12/13/2023 Higher is Better Phys Func - Score 33 (moderate dysfunction) 38 (moderate dysfunction) Phys Func - Percentile 4 12 Self-Eff Symptom - Score 35 (Low) [...] OF FUNCTION: LE AROM L Ankle Dorsiflexion: 2 Degrees L Ankle Plantar Flexion: 45 Degrees L Ankle Inversion: 25 L Ankle Eversion: 5 LE Strength L LE Strength: 4/5 grossly L ankle Education: Education Learning/educational needs: Home exercise program, Plan of Care, Changes in Plan of Care, Gait Training TREATMENT: PT Treatment Interventions: Therapeutic Exercise, Gait Training Evaluation Therapeutic Exercise: 1: *Gastroc stretch 3x30 sec (long sitting) 2: *Soleus stretch 3x30 sec (Long sitting, cuing for no pain, gentle stretch only) 3: *Ankle inversion/eversion with foot on ground over pillow case 3x[address] way 4: *Ankle alphabet 3x 5: *Towel scrunch 3x20 Skilled Intervention: Patient was educated in proper exercise technique and purpose for exercises. Skilled judgment was used in selection of appropriate interventions. Provided written instruction for home exercise program to facilitate proper performance and compliance. Correct performance of therapeutic exercises was facilitated with verbal, visual, and tactile cuing. Gait Trainin: Boot free ambulation around gym with cuing for improved heel to toe ambulation and push off at toe off; patient was compensating for push off by pronating foot. 2: Discussed energy conservation with long bouts of walking and how to properly wean out of boot and progress volume Skilled Intervention: Patient was provided verbal cuing and supervision during pre-gait/gait training to prevent falls and insure safety. Facilitated proper gait cycle with the use of verbal and visual cues for correction of gait deviations identified in the objective section above. Billing * Evaluation Low Complexity: 1 Unit Therapeutic Exercise Treatment Minutes: 15 Gait Training Treatment Minutes: 11 Skilled Treatment Time Minutes (timed and untimed codes): 41 Total Session Time (minutes): 41 Session Start Time : 1304 Session Stop Time : 1345 Enoc Bynum PT Program_ID:[id number] Access Code: [email or web address] URL: [email or web address] Date: 03-23-2024 Prepared By: Enoc Bynum Program Notes Exercises - Seated Calf Stretch with Strap - 3 x daily - 7 x weekly - 1 sets - 3 reps - Seated Soleus Stretch with Strap - 3 x daily - 7 x weekly - 1 sets - 3 reps - Ankle Inversion Eversion Towel Slide - 1 x daily - 7 x weekly - 3 sets - 20 reps - Towel Scrunches - 1 x daily - 7 x weekly - 3 sets - 10 reps - Seated Ankle Alphabet - 3 x daily - 7 x weekly - 1 sets - 1 reps documented in this encounter [facility] 03-15-2024 History of Present illness Narrative Aston Farrar Dony Surgery Date: L achilles tendonitis Surgery: 02/01/2024 Interval History: He is now 2 months since surgery. They report minimal pain. Noticed some drainage yesterday - small yellow spot on his sock. No pain, no fevers, no chills. ASSESSMENT/PLAN: 1. Achilles tendinitis of left lower extremity - ICD9: 726.71, ICD10: M76.62 - Will start Keflex, discussed concerning symptoms - CONSULT TO PHYSICAL THERAPY - wean boot - follow up in 6 weeks. Physical Exam: Well appearing male in no acute distress; Alert and oriented. Left Leg: Incision is clean dry and intact. There is no erythema warmth or drainage. Scab present He has palpable pulses, sensation is intact. He is able to flex and extend their toes and ankles without difficulty Radiographs: No imaging was performed today. Medication, History, and Allergies were reviewed and updated in the medical record. Carmen Rojas MD documented in this encounter [facility] 03-15-2024 Note HNO ID: [id number] Author: CARMEN ROJAS MD Service: ? Author Type: Physician Type: Progress Notes Filed: 03/15/2024 08:42 Note Text: Aston Napoles Surgery Date: L achilles tendonitis Surgery: 02/01/2024 Interval History: He is now 2 months since surgery. They report minimal pain. Noticed some drainage yesterday - small yellow spot on his sock. No pain, no fevers, no chills. ASSESSMENT/PLAN: 1. Achilles tendinitis of left lower extremity - ICD9: 726.71, ICD10: M76.62 - Will start Keflex, discussed concerning symptoms - CONSULT TO PHYSICAL THERAPY - wean boot - follow up in 6 weeks. Physical Exam: Well appearing male in no acute distress; Alert and oriented. Left Leg: Incision is clean dry and intact. There is no erythema warmth or drainage. Scab present He has palpable pulses, sensation is intact. He is able to flex and extend their toes and ankles without difficulty Radiographs: No imaging was performed today. Medication, History, and Allergies were reviewed and updated in the medical record. Carmen Rojas MD [facility] 02-29-2024 Telephone encounter Note It looks like it is excoriated from pressure and moisture. I want you to put Calmoseptine (zinc oxide) on this. If you can get warm soaks and Epsom salts with your foot out of the bathtub that would be great to. See if you can make a follow-up appointment with me as soon as you can [facility] Work Phone: 02-29-2024 Miscellaneous Notes It looks like it is excoriated from pressure and moisture. I want you to put Calmoseptine (zinc oxide) on this. If you can get warm soaks and Epsom salts with your foot out of the bathtub that would be great to. See if you can make a follow-up appointment with me as soon as you can documented in this encounter [facility] 02-29-2024 Nurse Note CYSTOSCOPY PROCEDURE History and physical exam within the last 30 days: yes. Exam notes reviewed: yes Informed consent obtained Yes. Discussed procedure, risks, and options with patient. Patient agrees to proceed. Anesthetics given: 10 cc 2% Lidocaine-Urethral and Administered by nurse - see Pre-Procedure Nurse's Notes. Operative Findings Urethra: Normal Prostate: Normal Bladder: no stones, no tumors, no lesions Radiologic Studies Urogram: 1. No hydronephrosis or renal calculi 2. Resolution of previously described bladder wall thickening 3. Fatty infiltration of the liver Ureterogram: N/A Cystogram: N/A Retrograde Pyelogram(s): None Complications: None Recommendations: Discussed findings with patient. Comments: Follow up with Jonathan Foster CNP as scheduled Post Procedure Evaluation Condition Post Procedure: satisfactory Post Procedure Medications: none Timothy Lopes MA [facility] 02-29-2024 Nurse Note CYSTOSCOPY PROCEDURE History and physical exam within the last 30 days: yes. Exam notes reviewed: yes Informed consent obtained Yes. Discussed procedure, risks, and options with patient. Patient agrees to proceed. Anesthetics given: 10 cc 2% Lidocaine-Urethral and Administered by nurse - see Pre-Procedure Nurse's Notes. Operative Findings Urethra: Normal Prostate: Normal Bladder: no stones, no tumors, no lesions Radiologic Studies Urogram: 1. No hydronephrosis or renal calculi 2. Resolution of previously described bladder wall thickening 3. Fatty infiltration of the liver Ureterogram: N/A Cystogram: N/A Retrograde Pyelogram(s): None Complications: None Recommendations: Discussed findings with patient. Comments: Follow up with Jonathan Foster CNP as scheduled Post Procedure Evaluation Condition Post Procedure: satisfactory Post Procedure Medications: none Timothy Lopes MA documented in this encounter [facility] 02-29-2024 Note HNO ID: [id number] Author: SEBASTIEN PETTY MD Service: ? Author Type: Physician Type: Progress Notes Filed: 02/29/2024 09:40 Note Text: [facility] UROLOGY PROCEDURE NOTE UROL [facility] CYSTOSCOPY PROCEDURE NOTE: Aston Napoles is a 49 year old male who presents for a cystoscopy. Indication: Bladder wall thickening, urgency Pt ID verified with patient: Yes Procedure verified with patient: Yes Procedure confirmed with physician and applications support specialist: Yes UNIVERSAL PROTOCOL / SAFETY CHECKLIST Procedure to be Performed: Cystoscopy Sign In: A Moment of CARE was completed. Personnel directly involved with the procedure wore the appropriate PPE (Personal Protective Equipment). Patient/Surrogate Stated/Verified: PATIENT VERIFIED(optional for EMERGENT procedures): Patient name, Date of , Relevant allergies, and The intended procedure Time Out Communication: Intended patient and procedure match the source documents. Consent documented and matches the intended procedure. Sign Out: SIGN OUT (optional for EMERGENT procedures): No specimen collected. Sebastien Petty MD Physician: Sebastien Petty MD A urinalysis was performed revealing no evidence of infection. The benefits, risks, alternatives of the cystoscopy procedure and personnel were discussed with the patient. The verbal consent was obtained and the patient agrees to proceed. Procedure: The patient was placed on the procedure table in the supine position and prepped and draped in the usual sterile fashion. 2% Lidocaine Jelly was placed per urethra as an anesthetic in the standard fashion. Once adequate local anesthesia was achieved, the tip of the flexible cystoscope was carefully placed into the urethra under direct visual guidance. The scope was negotiated through the pendulous urethra to the level of the bulbar urethra with no evidence of stricture. The verumontanum came into view and the scope was negotiated through the prostatic urethra which showed evidence of a patent prostatic urethra. The bladder was entered and careful koenig endoscopy was carried out. The posterior, superior and lateral lugo and dome of the bladder were all well visualized and the scope was retroflexed upon itself. The findings were consistent with no evidence of bladder mucosal pathology. FINDINGS Urethra: Normal Sphincter: Normal / Coapted Prostate: Normal Lateral Lobes / Normal Median Lobe Bladder Neck: Patent Urothelium: normal appearing, no evidence of tumor, no erythema, no foreign body Trabeculation: No Inflammation: No Diverticulum: No Ureteral Orifices: normal appearing, orthotopic position, clear efflux bilaterally Trigone: normal appearing At the conclusion of the procedure, the flexible cystoscope was removed atraumatically. The patient tolerated the procedure without complications. Patient was given standard post-procedure instructions, and was directed to increase oral fluid intake as directed. Complications: None Estimated Blood Loss: None Preoperative diagnosis: Bladder wall thickening Postoperative diagnosis: Same ASSESSMENT/PLAN: Normal cystoscopy TRUS PROCEDURE: The patient was placed in the lateral decubitus position. Digital rectal exam was normal. The ultrasound probe was placed into the rectum and the prostate visualized. The prostate was visualized in sagittal and transverse planes and no hypoechoic lesion identified. The total prostate volume was 18 gm Complications: None Estimated Blood Loss: None Preoperative diagnosis: Bladder wall thickening Postoperative diagnosis: Same Disposition / Plan: - I discussed the potential etiologies of his urinary symptoms which sound most consistent with possible bladder spasms and voluntary urine retention - I recommended patient avoid holding his urine for long periods of time - He was in agreement - Keep follow up in 3 months with Taurus Foster APRN.CERTIFIED CAREGIVER.GILBERTO Petty MD, MS Associate Staff [facility] 02-29-2024 History of Present illness Narrative Images from the original note were not included. [facility] [place] UROLOGY PROCEDURE NOTE UROL [facility] CYSTOSCOPY PROCEDURE NOTE: Aston Napoles is a 49 year old male who presents for a cystoscopy. Indication: Bladder wall thickening, urgency Pt ID verified with patient: Yes Procedure verified with patient: Yes Procedure confirmed with physician and applications support specialist: Yes UNIVERSAL PROTOCOL / SAFETY CHECKLIST Procedure to be Performed: Cystoscopy Sign In: A Moment of CARE was completed. Personnel directly involved with the procedure wore the appropriate PPE (Personal Protective Equipment). Patient/Surrogate Stated/Verified: PATIENT VERIFIED(optional for EMERGENT procedures): Patient name, Date of , Relevant allergies, and The intended procedure Time Out Communication: Intended patient and procedure match the source documents. Consent documented and matches the intended procedure. Sign Out: SIGN OUT (optional for EMERGENT procedures): No specimen collected. Sebastien Petty MD Physician: Sebastien Petty MD A urinalysis was performed revealing no evidence of infection. The benefits, risks, alternatives of the cystoscopy procedure and personnel were discussed with the patient. The verbal consent was obtained and the patient agrees to proceed. Procedure: The patient was placed on the procedure table in the supine position and prepped and draped in the usual sterile fashion. 2% Lidocaine Jelly was placed per urethra as an anesthetic in the standard fashion. Once adequate local anesthesia was achieved, the tip of the flexible cystoscope was carefully placed into the urethra under direct visual guidance. The scope was negotiated through the pendulous urethra to the level of the bulbar urethra with no evidence of stricture. The verumontanum came into view and the scope was negotiated through the prostatic urethra which showed evidence of a patent prostatic urethra. The bladder was entered and careful koenig endoscopy was carried out. The posterior, superior and lateral lugo and dome of the bladder were all well visualized and the scope was retroflexed upon itself. The findings were consistent with no evidence of bladder mucosal pathology. FINDINGS Urethra: Normal Sphincter: Normal / Coapted Prostate: Normal Lateral Lobes / Normal Median Lobe Bladder Neck: Patent Urothelium: normal appearing, no evidence of tumor, no erythema, no foreign body Trabeculation: No Inflammation: No Diverticulum: No Ureteral Orifices: normal appearing, orthotopic position, clear efflux bilaterally Trigone: normal appearing At the conclusion of the procedure, the flexible cystoscope was removed atraumatically. The patient tolerated the procedure without complications. Patient was given standard post-procedure instructions, and was directed to increase oral fluid intake as directed. Complications: None Estimated Blood Loss: None Preoperative diagnosis: Bladder wall thickening Postoperative diagnosis: Same ASSESSMENT/PLAN: Normal cystoscopy TRUS PROCEDURE: The patient was placed in the lateral decubitus position. Digital rectal exam was normal. The ultrasound probe was placed into the rectum and the prostate visualized. The prostate was visualized in sagittal and transverse planes and no hypoechoic lesion identified. The total prostate volume was 18 gm Complications: None Estimated Blood Loss: None Preoperative diagnosis: Bladder wall thickening Postoperative diagnosis: Same Disposition / Plan: - I discussed the potential etiologies of his urinary symptoms which sound most consistent with possible bladder spasms and voluntary urine retention - I recommended patient avoid holding his urine for long periods of time - He was in agreement - Keep follow up in 3 months with Taurus Foster APRN.CERTIFIED CAREGIVER.DNP Sebastien Petty MD, MS Associate Staff [facility] documented in this encounter [facility] 02-27-2024 Instructions Latisha Birmingham PA-C - 02/27/2024 9:55 AM EST -Call to schedule for consult for potential eustachian tube dilation procedure -Ask to schedule with one of the following [facility] ENT providers for consult: Dr. Valerie Escobedoim documented in this encounter [facility] 02-27-2024 History of Present illness Narrative HPI: Aston Napoles is a 49 year old male who returns to the office for followup for ear complaints. His acute left ear pain resolved after first visit, having taken prednisone, however the ear still feels chronically clogged. Had used flonase and insufflation techniques as advised w/o any improvement of clogged sensation. Bilateral ears not feeling as itchy. Continues to deny any dizziness or ringing. Scheduled to see derm for general psoriasis. Presents today reporting I reviewed the allergies, medications, problem list, PMH/PSH, FmHx and SocHx as documented per EMR. Physical Exam BP 152/109 Pulse 102 Resp 18 Ht 172.3 cm (5' 7.84) Wt 96.2 kg (212 lb) BMI 32.39 kg/m General: Appears to be in no acute distress, normal affect Head/Face: Facial muscles appear to be functioning normally Eyes: Extraocular movements appear intact Ears: Right Ear: External ear is without lesions. Conchal bowl has mild dry flaky skin. EAC is without inflammatory changes, free of debris. Visualized TM is not inflamed and with normal landmarks, not retracted or bulging. TM is mobile on pneumatic otoscopy. Left Ear: External ear is without lesions. Conchal bowl has mild dry flaky skin. EAC is without inflammatory changes, free of debris. Visualized TM is not inflamed and with normal landmarks, not retracted or bulging. TM is mobile on pneumatic otoscopy. Nose: External nose is without lesions or deformity Data MRI 02/20 negative Assessment & Plan I counseled the patient about the differential diagnosis, natural course, treatment options and answered their questions regarding the Diagnoses and all orders for this visit: Asymmetrical sensorineural hearing loss Ear pressure, left Dysfunction of left eustachian tube - CONSULT TO ENT; Future Prior audio revealed left-sided upper frequency asymmetric hearing loss, patient complaining of chronic blocked left ear. MRI was ordered and was negative 02/21/2024. Patient did use Flonase, auto insufflation techniques as advised reports no improvement in his clogged/blocked sensation in his ear. Discussed the possibility he may feel this is a clogged ear however it may just be due to the upper freq sensorineural hearing loss. I advised we have no further treatment to offer in this office, as his exam and tympanometry does not suggest severe negative pressure or fluid, that would warrant ear tube placement. He is advised he may seek consultation by a provider who performs balloon eustachian tube dilation, referral placed with providers noted. He was advised to continue treatment instructions for intermittent eustachian tube dysfunction, advised to consider a hearing aid otherwise. Chronic eczematous otitis externa of both ears Advised to continue steroid topical cream as directed at prior visit. Latisha Birmingham PA-C Time: 25 minutes: Time includes preparation, obtaining/reviewing history, exam, interpreting results, ordering, counseling/education, referring/communicating and documentation. -Created using voice recognition software, some errors may have occurred. Corrections may be performed at a later date documented in this encounter [facility] 02-27-2024 Note HNO ID: [id number] Author: LATISHA BIRMINGHAM PA-C Service: ? Author Type: Physician Care Connector Type: Progress Notes Filed: 02/27/2024 10:14 Note Text: HPI: Aston Napoles is a 49 year old male who returns to the office for followup for ear complaints. His acute left ear pain resolved after first visit, having taken prednisone, however the ear still feels chronically clogged. Had used flonase and insufflation techniques as advised w/o any improvement of clogged sensation. Bilateral ears not feeling as itchy. Continues to deny any dizziness or ringing. Scheduled to see derm for general psoriasis. Presents today reporting I reviewed the allergies, medications, problem list, PMH/PSH, FmHx and SocHx as documented per EMR. Physical Exam BP 152/109 Pulse 102 Resp 18 Ht 172.3 cm (5' 7.84) Wt 96.2 kg (212 lb) BMI 32.39 kg/m? General: Appears to be in no acute distress, normal affect Head/Face: Facial muscles appear to be functioning normally Eyes: Extraocular movements appear intact Ears: Right Ear: External ear is without lesions. Conchal bowl has mild dry flaky skin. EAC is without inflammatory changes, free of debris. Visualized TM is not inflamed and with normal landmarks, not retracted or bulging. TM is mobile on pneumatic otoscopy. Left Ear: External ear is without lesions. Conchal bowl has mild dry flaky skin. EAC is without inflammatory changes, free of debris. Visualized TM is not inflamed and with normal landmarks, not retracted or bulging. TM is mobile on pneumatic otoscopy. Nose: External nose is without lesions or deformity Data MRI 02/20 negative Assessment AND Plan I counseled the patient about the differential diagnosis, natural course, treatment options and answered their questions regarding the Diagnoses and all orders for this visit: Asymmetrical sensorineural hearing loss Ear pressure, left Dysfunction of left eustachian tube - CONSULT TO ENT; Future Prior audio revealed left-sided upper frequency asymmetric hearing loss, patient complaining of chronic blocked left ear. MRI was ordered and was negative 02/21/2024. Patient did use Flonase, auto insufflation techniques as advised reports no improvement in his clogged/blocked sensation in his ear. Discussed the possibility he may feel this is a clogged ear however it may just be due to the upper freq sensorineural hearing loss. I advised we have no further treatment to offer in this office, as his exam and tympanometry does not suggest severe negative pressure or fluid, that would warrant ear tube placement. He is advised he may seek consultation by a provider who performs balloon eustachian tube dilation, referral placed with providers noted. He was advised to continue treatment instructions for intermittent eustachian tube dysfunction, advised to consider a hearing aid otherwise. Chronic eczematous otitis externa of both ears Advised to continue steroid topical cream as directed at prior visit. Latisha Birmingham PA-C Time: 25 minutes: Time includes preparation, obtaining/reviewing history, exam, interpreting results, ordering, counseling/education, referring/communicating and documentation. -Created using voice recognition software, some errors may have occurred. Corrections may be performed at a later date [facility] 02-23-2024 Instructions Pato Lucas RN - 02/23/2024 2:11 PM EST He will be Non Weight Bearing for 6 weeks. Week 1 post-op: Splint off, XRs, incision check, placement into short-leg cast Week 3 post-op: Cast off, sutures out, placement into tall boot with two heel lifts (Styrofoam). Start WBAT. Wean lifts once fully WB. Week 6 post op: Wean boot, start PT. continue to elevate with foot above heart level for pain and swelling continue taking asprin 325mg twice daily to prevent blood clots follow up in 3 weeks change dressing daily for 1 week then ok to leave open to air as long as covered with sock and not rubbing against boot. Call or mychart if any signs of infection redness, swelling, drainage, fever [phone] WBAT weight bearing as tolerated means you can walk on boot as you tolerate. You can start off giving half weight to crutches/walker then half weight to boot for few days to week, then start just walking with boot in small area and increase from there. Doing this it is normal to have some increased swelling or pain. If bothersome you can go back to using crutches/ walker as needed. Also getting compression stocking can help with swelling. You can remove the heel lifts in boot as you become comfortable being WBAT , there are 2 in boot so you can remove 1 at a time. Ok to shower after 1-2 days of suture removal. No submerging water in pool, bath tub, hot tub etc. No lotions or ointments on incision. Let water run over in shower and pat dry after to replace dressing. documented in this encounter [facility] 02-23-2024 History of Present illness Narrative ORTH CARE COORDINATION POST OPERATIVE NURSE VISIT Patient has been identified by name and date of : Yes, Patient is accompanied by: Surgery: Left Achilles tendon secondary repair (CPT 20213) Left calcaneal Exostectomy (CPT 61155) Left Achilles tendon debridement (CPT 47734) Date of Surgery: 02/01/2024 Activity? WBAT in boot Incision? clean, dry, sutures removed Follow up Appointment? 3 weeks Patient aware of goals, to return to ADL's, yes. Any barriers to achieving goal? No PAIN EVALUATION 02/24/2024 1015 Pain Level: 2 Pain Location: Ankle-Left Description: Aching Duration Amount of Time: 3 Duration Units: Weeks Frequency: Continuous Intervention/Comfort measure: Reposition;Medication Medication Update: Yes: Pt doing well today. Pt toes warm and wiggle, taking ASA 325mg bid. Pt sutures removed, discussed dressing changes and signs of infection. Written and verbal instructions given along with supplies to patient and spouse. Discussed WBAT in boot and removal of heel inserts . Pt will continue to elevate for pain and swelling and follow up in 3 weeks. Pato Lucas RN He will be Non Weight Bearing for 6 weeks. Week 1 post-op: Splint off, XRs, incision check, placement into short-leg cast Week 3 post-op: Cast off, sutures out, placement into tall boot with two heel lifts (Styrofoam). Start WBAT. Wean lifts once fully WB. Week 6 post op: Wean boot, start PT. documented in this encounter [facility] 02-23-2024 Note HNO ID: [id number] Author: PATO LUCAS RN Service: ? Author Type: Registered Nurse Type: Progress Notes Filed: 02/24/2024 10:16 Note Text: ORTH CARE COORDINATION POST OPERATIVE NURSE VISIT Patient has been identified by name and date of : Yes, Patient is accompanied by: Surgery: Left Achilles tendon secondary repair (CPT 64670) Left calcaneal Exostectomy (CPT 09026) Left Achilles tendon debridement (CPT 89999) Date of Surgery: 02/01/2024 Activity? WBAT in boot Incision? clean, dry, sutures removed Follow up Appointment? 3 weeks Patient aware of goals, to return to ADL's, yes. Any barriers to achieving goal? No PAIN EVALUATION 02/24/2024 1015 Pain Level: 2 Pain Location: Ankle-Left Description: Aching Duration Amount of Time: 3 Duration Units: Weeks Frequency: Continuous Intervention/Comfort measure: Reposition;Medication Medication Update: Yes: Pt doing well today. Pt toes warm and wiggle, taking ASA 325mg bid. Pt sutures removed, discussed dressing changes and signs of infection. Written and verbal instructions given along with supplies to patient and spouse. Discussed WBAT in boot and removal of heel inserts . Pt will continue to elevate for pain and swelling and follow up in 3 weeks. Pato Lucas RN He will be Non Weight Bearing for 6 weeks. Week 1 post-op: Splint off, XRs, incision check, placement into short-leg cast Week 3 post-op: Cast off, sutures out, placement into tall boot with two heel lifts (Styrofoam). Start WBAT. Wean lifts once fully WB. Week 6 post op: Wean boot, start PT. [facility] 02-23-2024 History of Present illness Narrative Radiology Service Progress Note DATE OF SERVICE: February 23, 2024 TIME: 3:50 PM PATIENT IDENTITY VERIFICATION COMPLETED USING TWO (2) STANDARD IDENTIFIERS: Name and Date of confirmed by patient verbally. FALL SCREENING: Has the patient had 2 falls in the last year or 1 fall with injury or currently using an Ambulatory Assistive Device (Walker, Cane, Wheelchair, Crutches, etc.)? No PATIENT GENDER DATA: Male PATIENT RELEVANT IMPLANT DATA REVIEWED: Yes PATIENT PRESENTS WITH AN IMPLANTABLE OR ATTACHED GARNETT MACHINE OPERATOR HELPER: No ALLERGIES: Reviewed and unchanged CONTRAST ALLERGY: NO. EXAM: CT -CONTRAST INDUCED NEPHROPATHY RISK FACTORS: Not applicable CREATININE: Creatinine Date Value Ref Range Status 11/01/2023 0.84 0.73 - 1.22 mg/dL Final 12/16/2022 0.90 0.73 - 1.22 mg/dL Final 11/28/2019 Test sent to [facility]. 0.73 - 1.22 mg/dL Final Comment: Account Credited HIDE Estimated Glomerular Filtration Rate Date Value Ref Range Status 11/01/2023 108 >=60 mL/min/1.73m Final Comment: Estimated Glomerular Filtration Rate (eGFR) is calculated using the 2020 CKD-EPI creatinine equation. This equation utilizes serum creatinine, sex, and age as parameters. The creatinine assay has traceable calibration to isotope dilution-mass spectrometry. Refer to KDIGO guidelines for clinical interpretation. In patients with unstable renal function, e.g. those with acute kidney injury, the eGFR may not accurately reflect actual GFR. eGFR- Date Value Ref Range Status 11/28/2019 Test sent to [facility]. Final Comment: Account Credited ALIXE P.O.C.T. RESULTS: N/A February 23, 2024 TREATMENT: N/A PERIPHERAL IV DATA: Ambulatory: A peripheral IV was started in the Left antecubital site with a Angio cath: 22 gauge. RADIOLOGY DEPARTMENT: CT; Exam(s) Completed: Urogram SIGNATURE: SURI Amezcua) PATIENT NAME: Aston Napoles DATE: February 23, 2024 TIME: 3:50 PM documented in this encounter [facility] 02-23-2024 Note HNO ID: [id number] Author: ESSIE BEGUM RT (R) Service: ? Author Type: Stamping Mill Tender Type: Progress Notes Filed: 02/23/2024 15:51 Note Text: Radiology Service Progress Note DATE OF SERVICE: February 23, 2024 TIME: 3:50 PM PATIENT IDENTITY VERIFICATION COMPLETED USING TWO (2) STANDARD IDENTIFIERS: Name and Date of confirmed by patient verbally. FALL SCREENING: Has the patient had 2 falls in the last year or 1 fall with injury or currently using an Ambulatory Assistive Device (Walker, Cane, Wheelchair, Crutches, etc.)? No PATIENT GENDER DATA: Male PATIENT RELEVANT IMPLANT DATA REVIEWED: Yes PATIENT PRESENTS WITH AN IMPLANTABLE OR ATTACHED GARNETT MACHINE OPERATOR HELPER: No ALLERGIES: Reviewed and unchanged CONTRAST ALLERGY: NO. EXAM: CT -CONTRAST INDUCED NEPHROPATHY RISK FACTORS: Not applicable CREATININE: Creatinine Date Value Ref Range Status 11/01/2023 0.84 0.73 - 1.22 mg/dL Final 12/16/2022 0.90 0.73 - 1.22 mg/dL Final 11/28/2019 Test sent to [facility]. 0.73 - 1.22 mg/dL Final Comment: Account Credited HIDE Estimated Glomerular Filtration Rate Date Value Ref Range Status 11/01/2023 108 >=60 mL/min/1.73m? Final Comment: Estimated Glomerular Filtration Rate (eGFR) is calculated using the 2020 CKD-EPI creatinine equation. This equation utilizes serum creatinine, sex, and age as parameters. The creatinine assay has traceable calibration to isotope dilution-mass spectrometry. Refer to KDIGO guidelines for clinical interpretation. In patients with unstable renal function, e.g. those with acute kidney injury, the eGFR may not accurately reflect actual GFR. eGFR- Date Value Ref Range Status 11/28/2019 Test sent to [facility]. Final Comment: Account Credited MICK Mendoza RESULTS: N/A February 23, 2024 TREATMENT: N/A PERIPHERAL IV DATA: Ambulatory: A peripheral IV was started in the Left antecubital site with a Angio cath: 22 gauge. RADIOLOGY DEPARTMENT: CT; Exam(s) Completed: Urogram SIGNATURE: RT Seven(R) PATIENT NAME: Aston Napoles DATE: February 23, 2024 TIME: 3:50 PM [facility] 02-21-2024 History of Present illness Narrative Radiology Service Progress Note DATE OF SERVICE: February 21, 2024 TIME: 10:10 AM PATIENT IDENTITY VERIFICATION COMPLETED USING TWO (2) STANDARD IDENTIFIERS: Name and Date of confirmed by patient verbally. FALL SCREENING: Has the patient had 2 falls in the last year or 1 fall with injury or currently using an Ambulatory Assistive Device (Walker, Cane, Wheelchair, Crutches, etc.)? Yes, Patient High Risk for Falls What interventions were put in place to prevent falls during this visit? Instructed Patient to Call for Help if Needed, Offered Assistance with Transfers/Clothing, Instructed Patient to Remain Seated (Not on Exam Table) Until Exam, and Increased Observations by Caregivers PATIENT GENDER DATA: Male PATIENT RELEVANT IMPLANT DATA REVIEWED: Yes PATIENT PRESENTS WITH AN IMPLANTABLE OR ATTACHED GARNETT MACHINE OPERATOR HELPER: No ALLERGIES: Reviewed and unchanged CONTRAST ALLERGY: NO. EXAM: MRI - CONTRAST TYPE: GROUP II PERIPHERAL IV DATA: Ambulatory: A peripheral IV was started in the Right antecubital site with a Angio cath: 22 gauge. RADIOLOGY DEPARTMENT: MR; Exam(s) Completed: Head: IAC/CPA SIGNATURE: RT Liya(R) PATIENT NAME: Aston Napoles DATE: February 21, 2024 TIME: 10:10 AM documented in this encounter [facility] 02-21-2024 Note HNO ID: [id number] Author: JAYLENE YUSUF RT(R) Service: ? Author Type: Technologist Type: Progress Notes Filed: 02/21/2024 10:12 Note Text: Radiology Service Progress Note DATE OF SERVICE: February 21, 2024 TIME: 10:10 AM PATIENT IDENTITY VERIFICATION COMPLETED USING TWO (2) STANDARD IDENTIFIERS: Name and Date of confirmed by patient verbally. FALL SCREENING: Has the patient had 2 falls in the last year or 1 fall with injury or currently using an Ambulatory Assistive Device (Walker, Cane, Wheelchair, Crutches, etc.)? Yes, Patient High Risk for Falls What interventions were put in place to prevent falls during this visit? Instructed Patient to Call for Help if Needed, Offered Assistance with Transfers/Clothing, Instructed Patient to Remain Seated (Not on Exam Table) Until Exam, and Increased Observations by Caregivers PATIENT GENDER DATA: Male PATIENT RELEVANT IMPLANT DATA REVIEWED: Yes PATIENT PRESENTS WITH AN IMPLANTABLE OR ATTACHED GARNETT MACHINE OPERATOR HELPER: No ALLERGIES: Reviewed and unchanged CONTRAST ALLERGY: NO. EXAM: MRI - CONTRAST TYPE: GROUP II PERIPHERAL IV DATA: Ambulatory: A peripheral IV was started in the Right antecubital site with a Angio cath: 22 gauge. RADIOLOGY DEPARTMENT: MR; Exam(s) Completed: Head: IAC/CPA SIGNATURE: RT Liya(R) PATIENT NAME: Aston Napoles DATE: February 21, 2024 TIME: 10:10 AM [facility] 02-10-2024 Telephone encounter Note Patient was concerned because he tripped and put some weight on his cast. He has had a slight increase in pain since. Cast is fully in tact. He will continue with tylenol at this time, but tramadol sent as a step between tylenol and narcotic for patient if needed before Tuesday. Recommend ice elevation and rest over weekend. [facility] 02-10-2024 Miscellaneous Notes Patient was concerned because he tripped and put some weight on his cast. He has had a slight increase in pain since. Cast is fully in tact. He will continue with tylenol at this time, but tramadol sent as a step between tylenol and narcotic for patient if needed before Tuesday. Recommend ice elevation and rest over weekend. Patient is calling because he is experiencing some sharp pains and wonders if its normal part of the healing process. He wants to know if theres something stronger than tylenol to take but not a narcotic. [phone] documented in this encounter [facility] 02-10-2024 Telephone encounter Note Patient is calling because he is experiencing some sharp pains and wonders if its normal part of the healing process. He wants to know if theres something stronger than tylenol to take but not a narcotic. [phone] [facility] 02-09-2024 History of Present illness Narrative Associated Order(s): Splint Application SPLINT APPLICATION Date/Time: 02/09/2024 2:43 PM Performed by: Diana Griffith MA Authorized by: Carmen Rojas MD Procedure details: Location: Left ankle Cast/Brace type: Short leg cast non wt bearing Post-procedure: The splinted body part was neurovascularly unchanged following the procedure Tolerance: Patient tolerated the procedure well with no immediate complications Diana Griffith MA documented in this encounter [facility] 02-09-2024 History of Present illness Narrative Aston Napoles Surgery Date: 02/01/24 Surgery: Left Achilles tendon secondary repair (CPT 64854) Left calcaneal Exostectomy (CPT 22712) Left Achilles tendon debridement (CPT 27467) Interval History: He is now 8 days since surgery. They report minimal pain. He is taking his aspirin. He has no chest pains, shortness of breath. No other concerns today. ASSESSMENT/PLAN: -Placed into a short leg splint -Continue nonweightbearing -Discussed the importance of elevation Follow up in 2 weeks Physical Exam: Well appearing male in no acute distress; Alert and oriented. Left Leg: Incision is clean dry and intact. There is no erythema warmth or drainage. He has palpable pulses, sensation is intact. He is able to flex and extend their toes and ankles without difficulty Radiographs: Final results and radiologist's interpretation, available in the [facility] health record. Images were reviewed with the patient/family members in the office today. My personal interpretation of the performed imaging is interval calcaneal debridement Medication, History, and Allergies were reviewed and updated in the medical record. Carmen Rojas MD documented in this encounter [facility] 02-09-2024 History of Present illness Narrative Radiology Service Progress Note PATIENT NAME: Aston Napoles DATE OF SERVICE: February 09, 2024 TIME: 1:33 PM PATIENT IDENTITY VERIFICATION COMPLETED USING TWO (2) IDENTIFIERS: Name and Date of confirmed by patient verbally. FALL SCREENING: Has the patient had 2 falls in the last year or 1 fall with injury or currently using an Ambulatory Assistive Device (Walker, Cane, Wheelchair, Crutches, etc.)? No PATIENT GENDER DATA: Male PATIENT RELEVANT IMPLANT DATA REVIEWED: Not Applicable PATIENT PRESENTS WITH AN IMPLANTABLE OR ATTACHED GARNETT MACHINE OPERATOR HELPER: No RADIOLOGY DEPARTMENT: General X-ray: Exam(s) Completed: Lower Extremity X-Ray(s): Ankle, Left PERIPHERAL IV DATA: Not applicable SIGNED BY: RT Eli(R) February 09, 2024 1:33 PM documented in this encounter [facility] 02-07-2024 Telephone encounter Note Reason for Call: Patient spouse calling and states patient is having nausea, vomiting, constipation, SOB and GALLOWAY. Pt states he is unable to take his pain medication and nausea medication prescribed is not working. Pt endorses SOB on exertion as well. SOB started today. Outcome: GO TO ED NOW - pt made aware oncall can take up to 1 hour to call back. Patient instructed to go to the ED While waiting to speak to the Provider on-call, if you develop ANY new symptoms, if your condition worsens, or if you are concerned or anxious about your condition for any reason, go to the Emergency Room or call 911. Reason for Disposition Major surgery in the past month Protocols used: Breathing Ldcksfimpy-YZXUF-AE [facility] 02-07-2024 Miscellaneous Notes Reason for Call: Patient spouse calling and states patient is having nausea, vomiting, constipation, SOB and GALLOWAY. Pt states he is unable to take his pain medication and nausea medication prescribed is not working. Pt endorses SOB on exertion as well. SOB started today. Outcome: GO TO ED NOW - pt made aware oncall can take up to 1 hour to call back. Patient instructed to go to the ED While waiting to speak to the Provider on-call, if you develop ANY new symptoms, if your condition worsens, or if you are concerned or anxious about your condition for any reason, go to the Emergency Room or call 911. Reason for Disposition Major surgery in the past month Protocols used: Breathing Eciskxneth-VCNEN-PJ documented in this encounter [facility] 02-07-2024 Telephone encounter Note Reason for Call: vomiting, dehydration, constipation post procedure Patient began vomiting yesterday evening, had multiple bouts. At 1130 pm had a drink of water and fell asleep. Woke up about 3:45 AM vomiting, unable to keep any water down. Most recent emesis was black and green in color. Patient states he is dehydrated and has a severe headache. Outcome: Patient will go to ER for evaluation. Reason for Disposition [1] Vomiting AND [2] contains red blood or black (coffee ground) material (Exception: Few red streaks in vomit that only happened once.) Protocols used: Ydcpkmjg-DIJVG-KN [facility] 02-07-2024 Miscellaneous Notes Reason for Call: vomiting, dehydration, constipation post procedure Patient began vomiting yesterday evening, had multiple bouts. At 1130 pm had a drink of water and fell asleep. Woke up about 3:45 AM vomiting, unable to keep any water down. Most recent emesis was black and green in color. Patient states he is dehydrated and has a severe headache. Outcome: Patient will go to ER for evaluation. Reason for Disposition [1] Vomiting AND [2] contains red blood or black (coffee ground) material (Exception: Few red streaks in vomit that only happened once.) Protocols used: Ycohtmxe-HNAAB-DE documented in this encounter [facility] 02-06-2024 Telephone encounter Note Reason for Call: [...] on cell Appt needed: Within 24 hours [phone] (home) [phone] (cell) Payor: [facility] / [facility] / Product Type: PPO / Frances Kam [...] OTHER SYMPTOMS: vomit and nausea Protocols used: Mqhxsiaymuke-XFOCZ-LF [facility] 02-06-2024 Miscellaneous Notes Reason for Call: constipation [...] on cell Appt needed: Within 24 hours [phone] (home) [phone] (cell) Payor: [employer] / Plan: [employer] / Product Type: PPO / Frances Kam [...] OTHER SYMPTOMS: vomit and nausea Protocols used: Hpliboktwnks-DZOAR-IZ documented in this encounter [facility] 02-01-2024 Note HNO ID: [id number] Author: HEATHER DORMAN APRN.ACADEMIC COORDINATOR Service: Anesthesiology Author Type: Nurse Enterprise Application Administrator Type: Anesthesia Procedure Notes Filed: 02/01/2024 11:49 Note Text: ANESTHESIOLOGY PROCEDURE NOTE Airway General Information Procedure Start Time/Medication Administration: 02/01/2024 11:31 AM Procedure End Time: 02/01/2024 11:31 AM Patient location during procedure: OR Timeout Performed Pre-procedure: timeout performed Consent Obtained: Yes Patient identity confirmed: patient Staffing Performed by: ACADEMIC COORDINATOR Indications and Patient Condition Indications for airway management: anesthesia Preoxygenated: yes anesthesia circuit Patient position: sniffing Method: asleep Final Airway Details Final airway type: supraglottic airway Number of attempts at approach: 1 Final Supraglottic Airway: i-gel Size 5 Seal Adequate: yes Comments Easy atraumtic lma 5 SIGNATURE: Heather Dorman APRN.CRNA PATIENT NAME: Aston Napoles DATE: February 01, 2024 TIME: 11:48 AM CSN: [id number] [facility] 02-01-2024 Note HNO ID: [id number] Author: JONATHAN BUTLER MD Service: Anesthesiology Author [...] February 01, 2024 TIME: 11:19 AM CSN: [id number] [facility] 01-30-2024 History of Present illness Narrative This note was created using [employer]. Subjective Aston Napoles is a 48 year [...] Javier Osorio MD documented in this encounter [facility] 01-23-2024 Instructions Jonathan Foster APRN.GILBERTO LIM - 01/23/2024 9:49 AM EDT Follow up with Jonathan Foster APRN.GILBERTO LIM in 3 months Labs today - PSA [...] Foster APRN.GILBERTO LIM documented in this encounter [facility] 01-23-2024 History of Present illness Narrative Verified [...] from the original note were not included. [facility] MALE PATIENT - [...] CONDYLOMA SKIN BIOPSY HX TONSILLECTOMY HX 1980 Social History Tobacco Use Smoking status: Never [...] 1.22 mg/dL Final 11/28/2019 Test sent to [facility]. 0.73 - 1.22 mg/dL Final Comment: Account Credited HIDE 04/14/2018 1.16 0.73 - 1.22 mg/dL Final PSA No results found for: PSA OFFICE DATA: POST-VOID RESIDUAL BLADDER VOLUME: YES, 0 cc IMAGING: From [facility] Review of Systems: PAIN ASSESSMENT: CURRENTLY HAVING NO PAIN GENERAL: No weight loss, malaise or fevers GI: No nausea, vomiting MUSCULOSKELETAL: Negative for generalized joint pain SKIN: Negative for rash HEMATOLOGY/LYMPHOLOGY: Negative for swollen nodes All other systems reviewed and noncontributory PHYSICAL EXAMINATION: The sensitive examination was discussed with the Patient or Patient's Authorized Linen Room Houseperson. As applicable, any other physician, advance practice provider, medical student, or other health professional student that will be observing or involved in the sensitive examination for educational or training purposes was discussed with the Patient or Authorized Linen Room Houseperson. The Patient or Authorized Linen Room Houseperson has agreed to proceed with the sensitive examination. (Sensitive examination includes inspection and/or palpation of the breasts, pelvis, prostate and anorectal regions) VITALS: BP 140/88 (BP Site: Right Arm, BP Position: Sitting, BP Cuff Size: Regular Adult) Pulse 96 Temp 36.1 C (97 F) (Temporal) Resp 14 Ht 172.3 cm (5' 7.84) Wt 100.7 kg (222 lb) SpO2 97% [...] Jonathan Foster DNP, [place] Department of Urology [facility] documented in this encounter [facility] 01-20-2024 Instructions Gaetano Ambrocio PA-C - 01/20/2024 7:53 AM EDT PATIENT PREOPERATIVE INSTRUCTIONS Sandra-Carmen Myles* has scheduled you for your procedure at this surgery center: [facility]: [phone] --[phone] [id number]. Please read below carefully for your personalized [...] Procedures: - YOU MUST HAVE A RESPONSIBLE UTILITY WORKER FILM PROCESSING TAKE YOU HOME. A ALLIANCES CONSULTANT OR FELT PAD CUTTER CANNOT BE MADE A RESPONSIBLE UTILITY WORKER FILM PROCESSING. - We recommend that a responsible person [...] Advance Directive, please fax a copy to [phone] or email to for it to be [...] your chart that day. Gaetano Ambrocio PA-C [phone] documented in this encounter [facility] 01-20-2024 History and physical note PREANESTHESIA CONSULT CLINIC TELEHEALTH VISIT Patient has been identified by name and date of : Yes This is a virtual visit using mydalaom Video Visit. It require patient-provider interaction for the medical decision making as documented below. Reason for contact: PACC visit Accompanied by: Self This is a virtual visit using Virtual Visit (Audio/Visual)I have discussed the nature of this visit with the patient which will occur via [facility] [employer] (Phone, Virtual Visit) and he agrees to proceed with this interaction. It required patient-provider interaction for the medical decision making as documented below. I have communicated my name and active licensure. The patient's identity and physical location were verified at the time of this visit. Either the patient or their legal medical service representative has been informed of the risks and [...] requiring medication, no history of angina, CHF, TN, cardiac surgery or stents. Denies rest pain, [...] and itching. Objective PHYSICAL EXAM: Ht 5' 10.5[pt reported[ (1.79m) Wt 221 lb (100.2kg) BMI [...] which included preparing to see the patient, [id number] patient care, completing clinical documentation, obtaining and/or reviewing separately obtained history, performing a medically appropriate examination, and counseling and educating the patient/family/caregiver This is a virtual visit. It required patient-provider interaction for the medical decision making as documented above. SIGNATURE: Gaetano Ambrocio PA-C PATIENT NAME: Aston Napoles DATE: 01/20/2024 TIME: 8:06 AM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 this encounter (statuses as of 06/13/2023) [facility] History of Past illness Narrative* Problem Noted Date Diagnosed Date Resolved Date Abdominal pain, left lower quadrant 02/17/2023 05/02/2023 Rectal bleeding 02/17/2023 05/02/2023 Somnolence, daytime 02/27/2018 09/29/19 19 Elevated blood pressure reading 02/27/2018 09/28/2018 documented as of this encounter (statuses as of 06/16/2023) [facility] History of Past illness Narrative* Problem Noted Date Diagnosed Date Resolved Date Abdominal pain, left lower quadrant 02/17/2023 05/02/2023 Rectal bleeding 02/17/2023 05/02/2023 Somnolence, daytime 02/27/2018 09/29/19 19 Elevated blood pressure reading 02/27/2018 09/28/2018 documented as of this encounter (statuses as of 06/16/2023) [facility] History of Past illness Narrative* Problem Noted Date Diagnosed Date Resolved Date Abdominal pain, left lower quadrant 02/17/2023 05/02/2023 Rectal bleeding 02/17/2023 05/02/2023 Somnolence, daytime 02/27/2018 09/29/19 19 Elevated blood pressure reading 02/27/2018 09/28/2018 documented as of this encounter (statuses as of 07/11/2023) [facility] History of Past illness Narrative* Problem Noted Date Diagnosed Date Resolved Date Abdominal pain, left lower quadrant 02/17/2023 05/02/2023 Rectal bleeding 02/17/2023 05/02/2023 Somnolence, daytime 02/27/2018 09/29/19 19 Elevated blood pressure reading 02/27/2018 09/28/2018 documented as of this encounter (statuses as of 07/15/2023) [facility] History of Past illness Narrative* Problem Noted Date Diagnosed Date Resolved Date Abdominal pain, left lower quadrant 02/17/2023 05/02/2023 Rectal bleeding 02/17/2023 05/02/2023 Somnolence, daytime 02/27/2018 09/29/19 19 Elevated blood pressure reading 02/27/2018 09/28/2018 documented as of this encounter (statuses as of 07/28/2023) [facility] History and physical note* Jonathan Nielsen MD [...] 2023 TIME: 8:34 AM documented [facility] Nurse Note* Nicole Pendleton RN - 02/17/2023 9:09 AM EST Arrived in phase II via cart. Left lateral position. Sedated, but responds to verbal stimuli. Colornormal; skin warm and dry. Respirations wnl and unlabored. Abdomen soft and with + bowel sounds in quads X 4. Patient resting comfortably. Dr. Nielsen at bedside to review procedure and recommendations. Nicole Pendleton RN documented [facility] encounter[facility]23 Miscellaneous Notes* Telephone Encounter - Rachana Carter RN - 02/17/2023 6:07 AM EST Patient calling back. States that he did not receive a call back from the artifacts conservator provider, is still nauseated and that his headache is persistent. Asking if he can take Tylenol for headache and if he can take something for nausea prior to his scheduled 11 AM procedure. No worsening symptoms from earlier call. Conferenced patient to Surgery Answering Service to speak with artifacts conservator provider. documented in this encounterS[facility]23 Miscellaneous Notes* Telephone Encounter - Rachana Carter RN - 02/17/2023 12:42 AM EST Patient calling with worsening nausea since completing his colonoscopy prep around 5-6 PM last evening. Denies vomiting, but states nausea is progressively getting worse. Wants to know if he can takeondansetron he has prescribed. Conferenced patient to [place], [facility] Peerless wafer fabrication operator, to speak with Gastroenterology provider artifacts conservator. Advised patient he can come to ED for any new or worsening symptoms. [facility] History of Present illness Narrative* Jonathan Nielsen [...] entered by the nurse and reviewed by ct Nursing Notes: Reyna Worthington LPN 02/01/2023 3:58 [...] Jonathan Nielsen III, MD documented in this encounter[facility] Instructions* Patient Instructions* Jonathan Nielsen MD - [...] If you do not have a responsible dump truck driver (family member or friend) with you [...] your exam. 2 03/2019 [facility] Nurse Note* Reyna Worthington LPN - 02/01/2023 [...] colonoscopy Reyna Worthington LPN documented in this encounter[facility] History of Present illness Narrative* Francisco Javier [...] results, further tests will be recommended. - [facility] LEFT - US BREAST LTD LEFT 4. Need for COVID-19 vaccine - ICD9: V04.89, ICD10: Z23 - [employer] COVID-19 VACCINE (2022- SEASON) AGE 12+ YR Francisco Javier Osorio MD [place] [address]-07-2023 Miscellaneous Notes* Addendum Note - Catarina Richards APRN.CNP - 12/16/2022 8:41 AM EDTAddended by: CATARINA RICHARDS on: 12/16/2022 08:41 AM Modules accepted: Orders documented in this encounter[facility] History of Present illness Narrative* Catarina Richards APRN.CNP - 12/16/2022 8:05 AM EDT CC: Patient presents with: Ear Infection: Left ear infection on 11/18 at [facility] was given Amoxicillin - now [...] started on Tremfya for psoriasis by his blueprinting machine operator, recently had first of the monthly injections. Reports widespread joint pain, his blueprinting machine operator had mentioned possible psoriatic arthritis. Patient denies [...] SURGICAL HISTORY Procedure Laterality Date APPENDECTOMY 1998 EXCISION PILONIDAL CYST/SINUS SIMPLE INGUINAL HERNIA REPAIR [...] plan. Catarina Richards APRN.CNP documented in this encounter[facility]23 Instructions* Patient Instructions* Robyn Perdue APRN.CNS - 11/04/2022 7:27 AM [...] a.m. if not improving. documented in this encounterS[facility]23 History of Present illness Narrative* Robyn Perdue, ACCOUNTS RECEIVABLE MANAGER.SALES PROJECT ENGINEER - 11/04/2022 7:08 AM EDT SUBJECTIVE: HEPATITIS [...] Level: 3 - Low documented in this encounterS[facility]04[facility]-2023 Miscellaneous Notes* Telephone Encounter - Abhinav Sanchez Ma - 07/21/2022 10:54 AM EDT TANVIR: 03/11/2022 Last refill: 06/25/2021 QTY: 90 Refills: 3 Patient's request for medication is as follows: Requested Prescriptions Pending Prescriptions Disp Refills DULoxetine (CYMBALTA) 30 mg capsule 90 capsule 3 Sig: Take 1 capsule by mouth once daily. Please approve the above prescription(s) to electronically send to pharmacy. Abhinav Sanchez Rohit * Telephone Encounter - Milvia Lassiter Pss [...] patient. Milvia Lassiter Pss documented in this encounterS[facility]-14-2023 Miscellaneous Notes* Telephone Encounter - Rebecca Francisco [...] or sooner if any worsening Catarina Richards APRN.CNP * Telephone Encounter - Cynthia Hdez LPN [...] spray. Cynthia Hdez LPN documented in this encounterS[facility]23 History of Present illness Narrative* Catarina Richards, BETZY.CERTIFIED CAREGIVER - 05/17/2022 1:38 PM EST CC: Patient [...] plan. Catarina Richards APRN.CNP documented in this encounter[facility]-2023 Miscellaneous Notes* Telephone Encounter - Anuradha De [...] Anuradha De La Rosa documented in this encounterS[facility]12-[facility]-2022 Instructions* Patient Instructions* Pamela Richards APRN.CNP - 03/11/2022 2:47 PM EST FACT SHEET FOR PATIENTS, PARENTS, AND CAREGIVERS EMERGENCY USE AUTHORIZATION (EUA) OF PAXLOVID FOR CORONAVIRUS DISEASE 2019 (COVID-19) You are being given this Fact Sheet because your healthcare provider believes it is necessary to provide you with PAXLOVID for the treatment of acvw-fz-zsaqsayn coronavirus disease (COVID-19) caused by the SARS-CoV-2 [...] virus. COVID-19 illnesses have ranged from very iszc-am-jnkaas, including illness resulting in . While information [...] is an investigational medicine used to treat qepu-ro-gdpdncnm COVID-19 in adults and children [12 years [...] of using PAXLOVID to treat people with ayyg-vw-effbwphm COVID-19. The FDA has authorized the emergency use of PAXLOVID for the treatment of wddg-no-mhntgcva COVID-19in adults and children [12 years of [...] the medicines you take, including prescription and euus-hfu-lqaruwm medicines, vitamins, and herbal supplements. Some medicines [...] (remdesivir) is FDA-approved for the treatment of ktmm-ru-etmwfmtl COVID-19 in certain adults and children. Talk with your doctor to see if Veklury is appropriate for you. Like PAXLOVID, FDA may also allow for the emergency use of other medicines to treat people with COVID-19. Go to https://www.fda.gov/nhgynbjtk-wovqknkduewp-fkhnsspehls/nrf-gptqy-mpisjtuumf-and- policy-framework/idyxvwqgh-cgj-jqtyxforxaluk for information on the emergency use of [...] if I am or ? There is casino floorperson treating women or mothers with PAXLOVID. For [...] to FDA MedWatch at www.fda.gov/medwatch or call 4-110-OEP3566 or you can reportside effects to [employer]. at the contact information provided below. Website Fax number Telephone number Attentio How should I store PAXLOVID? Store PAXLOVID [...] (EUA). The EUA is supported by a Ethylene Plant Operator of Health and Human Service (HHS) declaration that circumstances exist to justify the emergency use of drugs and biological productsduring the COVID-19 pandemic. PAXLOVID for the treatment of tmvs-eo-jpdwtztt COVID-19 in adults and children [12 years [...] telephone number provided below. Website Telephone number Dydra.[email or web address] ([phone]-MJLZ) You can also go to www.Bycler or call for more information. Pfizer Distributed by [employer] [place] [address] LAB-1494-2.1 Revised: 26 June 2021 FACT SHEET FOR PATIENTS, PARENTS, AND CAREGIVERS EMERGENCY USE AUTHORIZATION (EUA) OF PAXLOVID FOR CORONAVIRUS DISEASE 2019 (COVID-19) You are being given this Fact Sheet because your healthcare provider believes it is necessary to provide you with PAXLOVID for the treatment of otjh-ep-mhiwypro coronavirus disease (COVID-19) caused by the SARS-CoV-2 [...] virus. COVID-19 illnesses have ranged from very svzs-wy-zxcxrh, including illness resulting in . While information [...] is an investigational medicine used to treat ctpv-cw-sasprrtw COVID-19 in adults and children [12 years [...] of using PAXLOVID to treat people with qaop-xr-iediohfe COVID-19. The FDA has authorized the emergency use of PAXLOVID for the treatment of pufz-er-gaegycuj COVID-19in adults and children [12 years of [...] the medicines you take, including prescription and ihuc-ghr-gurhwbu medicines, vitamins, and herbal supplements. Some medicines [...] (remdesivir) is FDA-approved for the treatment of bjbl-do-jhlkjlzv COVID-19 in certain adults and children. Talk with your doctor to see if Veklury is appropriate for you. Like PAXLOVID, FDA may also allow for the emergency use of other medicines to treat people with COVID-19. Go to https://www.fda.gov/vajshcwac-oukzfmkbulla-mwulznurcgy/phu-yorbw-dryfywuqch-and- policy-framework/pzfzqkxqs-puq-qvscsbfdbaajp for information on the emergency use of [...] if I am or ? There is casino floorperson treating women or mothers with PAXLOVID. For [...] not go away. Report side effects to [employer] at www.fda.gov/medwatch or call 4-794-JTM8533 or you can reportside effects to [employer] at the contact information provided below. Website Fax number Telephone number Attentio How should I store PAXLOVID? Store PAXLOVID [...] (EUA). The EUA is supported by a [place] of Health and Human Service (HHS) declaration that circumstances exist to justify the emergency use of drugs and biological productsduring the COVID-19 pandemic. PAXLOVID for the treatment of tbdp-cx-yetgegok COVID-19 in adults and children [12 years [...] telephone number provided below. Website Telephone number wwwCQuotient (2-342-V90-SRZA) You can also go to www.Bycler or call for more information. Pfizer Distributed by [employer] [place] [address] LAB-1494-2.1 Revised: 26 June 2021 documented in this encounterS[facility]12-[facility]-2022 History of Present illness Narrative* Pamela Richards APRN.CNP - 03/11/2022 2:36 PM EST This Team Access Model visit is a virtual encounter. It required patient- provider interaction for the medical decision making as documented below. Patient agrees to the visit: Yes Patient Location: [place] CC: Patient presents with: Covid HPI Aston [...] APRN.CARINA Nirmatrelvir/Ritonavir (Paxlovid) Eligibility and Patient Discussion [facility] Formulary Restriction Criteria: Adult outpatients 18 years [...] the Fact Sheet for Patients, Parents and Caregivers. The patient was also instructed that in addition to the treatment with nirmatrelvir/ritonavir, he/she should continue to self-isolate and use infection control measures (e.g., wear mask, isolate, social distance, avoid sharing personal items, clean and disinfect high touch surfaces, and frequent h andwashing) according to CDC guidelines. The patient stated understanding and gave verbal consent to proceeding with nirmatrelvir/ritonavir treatment. Pamela Richards APRN.CNP March 11, 2022 2:48 PM documented in this encounterS[facility]10-[facility]-2022 History of Present illness Narrative* Catarina Richards [...] - Instructed patient to contact office or xmzpg-ig-vbxr after-hours promptly should condition worsen or any new symptoms appear. 2. Obesity, Class I, BMI 30-34.9 - ICD9: 278.00, ICD10: E66.9 Stable - LIPID PANEL BASIC - COMP METABOLIC PANEL 3. KEYLA (obstructive sleep apnea) - ICD9: 327.23, ICD10: G47.33 Compliant with CPAP 4. Encounter for immunization - ICD9: V03.89, ICD10: Z23 - INFLUENZA VACCINE QUADRIVALENT 6 MO - 64 YRS IM - P[employer]ZER[employer]BIONTECH COVID-19 BIVALENT BOOSTER VACCINE, AGE 12+ YR Prescription instructions reviewed with patient as applicable. Potential red flag symptoms discussed with the patient. Reviewed appropriate action plan to take if red flag symptoms occur. Patient agreeable to treatment plan. Catarina Richards APRN.CNP documented in this encounterS[facility]07-29-2022 Miscellaneous Notes* Telephone Encounter - Jody Lott LPN - 11/06/2021 11:41 AM EDT Pt has seen Dr. Nielsen today. * Telephone Encounter - Rebecca Francisco LPN - 11/05/2021 9:06 AM EDT Left message for Patient to call & speak to nurse re: Recurrent problem needing general surgeryconsult. Rebecca Francsico LPN * Telephone Encounter - Britta Mcdowell [...] recurrent problem. Please advise documented in this encounterS[facility]07-29-2022 History of Present illness Narrative* Jonathan Nielsen MD - 11/06/2021 8:59 AM EDT HISTORY AND PHYSICAL Aston Napoles 1975 REFERRING PHYSICIAN: MD Yony CHIEF COMPLAINT: Consult (cyst, artie rectal, reoccuring ) HPI: The patient is a 46 year old male with a complaint of pain and discomfort in the perianal area. Patient has had a perianal abscess in the past and was actually drained in the emergency department 2008 came back and 2018 and spontaneously drained at that [...] entered by the nurse and reviewed by ct Nursing Notes: Jaylene Morales LPN 11/06/2021 8:46 [...] C (96.6 F), height 177.8 cm (5' 10),weight 98.4 kg (217 lb), SpO2 97 %. [...] Jonathan Nielsen III, MD documented in this encounterS[facility]07-29-2022 Nurse Note* Jaylene Morales, CATTLE BRANDER - 11/06/2021 8:45 AM EDT REVIEW OF [...] 2020 Jaylene Morales LPN documented in this encounterS[facility]07-18-2022 Miscellaneous Notes* Telephone Encounter - Norah Rainey RN - 10/26/2021 8:49 AM EDT Protocol [...] Fever or blood in stool Protocols used: [id number]-CDTCW-PM documented in this encounterScci Hospital [facility]06-16-2022 History of Present illness Narrative* Francisco Javier Osorio MD - 09/24/2021 1:45 PM EDT This note was created using [employer]. Subjective Aston Napoles is a 46 year old male. He was seen at the [facility] for possible Covid, tested negative. He [...] Francisco Javier Osorio MD documented in this encounterScci Hospital [facility]06-15-2022 Miscellaneous Notes* Telephone Encounter - Amy Ervin LPN - 09/23/2021 8:34 AM EDT Patient returned call and went over my chart message that was sent, appt scheduled with Dr Osorio for 09/24 at 140 pm since [facility] schedule no appt is available. Patient had gone to [facility] and put on amox rx, coughing, had fever. * Telephone Encounter - Rebecca Francisco LPN - 09/23/2021 8:20 AM EDT Left message to call & speak to nurse. Reebcca Francisco LPN * Telephone Encounter - Francisco Javier Osorio MD - 09/22/2021 8:42 PM EDT He was not evaluated here so for now continue with current treatment plan. Expect improvement another 1-2 days. Appointment or urgent care here if not better end of this week. ER if worse. * Telephone Encounter - Yas Patterosn RN - 09/22/2021 9:28 AM EDT Pt [...] Please call and advise. documented in this encounterScci [facility]03-26-2022 History of Present illness Narrative* Francisco Javier Osorio MD - 07/04/2021 11:39 AM EDT ASSESSMENT/PLAN: 1. Positive hepatitis C antibody test - ICD9: 795.79, ICD10: R76.8 Negative HCV RNA. Repeat in 6 weeks. - HEP REMOTE PANEL BL - HEPATIC FUNCTION PNL Francisco Javier Osorio MD documented in this encounterScci [facility]03-23-2021 History of Present illness Narrative* Karly Damon)Vaughn - 07/01/2020 9:10 AM EDT Radiology Service [...] 01, 2020 9:16 AM documented in this encounterScci [facility]11-19-2018 History of Past illness Narrative* Problem Noted Date Resolved Date Somnolence, daytime 02/27/2018 09/28/2018 Elevated blood pressure reading 02/27/2018 09/28/2018 documented as of this encounter (statuses as of 07/04/2021) [facility] of [facility] illness Narrative* Problem Noted Date Resolved Date Somnolence, daytime 02/27/2018 09/28/2018 Elevated blood pressure reading 02/27/2018 09/28/2018 documented as of this encounter (statuses as of 09/23/2021) [facility] of Past illness Narrative* Problem Noted Date Resolved Date Somnolence, daytime 02/27/2018 09/28/2018 Elevated blood pressure reading 02/27/2018 09/28/2018 documented as of this encounter (statuses as of 09/23/2021) [facility] History of Past illness Narrative* Problem Noted Date Resolved Date Somnolence, daytime 02/27/2018 09/28/2018 Elevated blood pressure reading 02/27/2018 09/28/2018 documented as of this encounter (statuses as of 09/24/2021) [facility] of Past illness Narrative* Problem Noted Date Resolved Date Somnolence, daytime 02/27/2018 09/28/2018 Elevated blood pressure reading 02/27/2018 09/28/2018 documented as of this encounter (statuses as of 10/27/2021) [facility] of [facility] illness Narrative* Problem Noted Date Resolved Date Somnolence, daytime 02/27/2018 09/28/2018 Elevated blood pressure reading 02/27/2018 09/28/2018 documented as of this encounter (statuses as of 11/06/2021) [address]19-2018 History of Past illness Narrative* Problem Noted Date Resolved Date Somnolence, daytime 02/27/2018 09/28/2018 Elevated blood pressure reading 02/27/2018 09/28/2018 documented as of this encounter (statuses as of 11/06/2021) [place] [address]19-2018 History of Past illness Narrative* Problem Noted Date Resolved Date Somnolence, daytime 02/27/2018 09/28/2018 Elevated blood pressure reading 02/27/2018 09/28/2018 documented as of this encounter (statuses as of 01/11/2022) [facility] of [facility] illness Narrative* Problem Noted Date Resolved Date Somnolence, daytime 02/27/2018 09/28/2018 Elevated blood pressure reading 02/27/2018 09/28/2018 documented as of this encounter (statuses as of 03/11/2022) [place] [address]2018 History of Past illness Narrative* Problem Noted Date Resolved Date Somnolence, daytime 02/27/2018 09/28/2018 Elevated blood pressure reading 02/27/2018 09/28/2018 documented as of this encounter (statuses as of 04/17/2022) [place] [address] History of Past illness Narrative* Problem Noted Date Resolved Date Somnolence, daytime 02/27/2018 09/28/2018 Elevated blood pressure reading 02/27/2018 09/28/2018 documented as of this encounter (statuses as of 05/17/2022) [place] [address] History of Past illness Narrative* Problem Noted Date Resolved Date Somnolence, daytime 02/27/2018 09/28/2018 Elevated blood pressure reading 02/27/2018 09/28/2018 documented as of this encounter (statuses as of 05/26/2022) [address]19-2018 History of Past illness Narrative* Problem Noted Date Resolved Date Somnolence, daytime 02/27/2018 09/28/2018 Elevated blood pressure reading 02/27/2018 09/28/2018 documented as of this encounter (statuses as of 07/22/2022) [address]19-2018 History of Past illness Narrative* Problem Noted Date Diagnosed Date Resolved Date Somnolence, daytime 02/27/2018 09/29/19 19 Elevated blood pressure reading 02/27/2018 09/28/2018 documented as of this encounter (statuses as of 11/04/2022) [address]19-2018 History of Past illness Narrative* Problem Noted Date Diagnosed Date Resolved Date Somnolence, daytime 02/27/2018 09/29/19 19 Elevated blood pressure reading 02/27/2018 09/28/2018 documented as of this encounter (statuses as of 12/16/2022) [address]19-2018 History of Past illness Narrative* Problem Noted Date Diagnosed Date Resolved Date Somnolence, daytime 02/27/2018 09/29/19 19 Elevated blood pressure reading 02/27/2018 09/28/2018 documented as of this encounter (statuses as of 12/24/2022) [address]19-2018 History of Past illness Narrative* Problem Noted Date Diagnosed Date Resolved Date Somnolence, daytime 02/27/2018 09/29/19 19 Elevated blood pressure reading 02/27/2018 09/28/2018 documented as of this encounter (statuses as of 02/01/2023) [address]19-2018 History of Past illness Narrative* Problem Noted Date Diagnosed Date Resolved Date Somnolence, daytime 02/27/2018 09/29/19 19 Elevated blood pressure reading 02/27/2018 09/28/2018 documented as of this encounter (statuses as of 02/07/2023) [address]19-2018 History of Past illness Narrative* Problem Noted Date Diagnosed Date Resolved Date Somnolence, daytime 02/27/2018 09/29/19 19 Elevated blood pressure reading 02/27/2018 09/28/2018 documented as of this encounter (statuses as of 02/17/2023) [facility]-19-2018 History of Past illness Narrative* Problem Noted Date Diagnosed Date Resolved Date Somnolence, daytime 02/27/2018 09/29/19 19 Elevated blood pressure reading 02/27/2018 09/28/2018 documented as of this encounter (statuses as of 02/18/2023) [facility]-19-2018 History of Past illness Narrative* Problem Noted Date Diagnosed Date Resolved Date Somnolence, daytime 02/27/2018 09/29/19 19 Elevated blood pressure reading 02/27/2018 09/28/2018 documented as of this encounter (statuses as of 02/24/2023) [facility]-2018 History of Past illness Narrative* Problem Noted Date Diagnosed Date Resolved Date Somnolence, daytime 02/27/2018 09/29/19 19 Elevated blood pressure reading 02/27/2018 09/28/2018 documented as of this encounter (statuses as of 02/24/2023) [facility]-2018 History of Past illness Narrative* Problem Noted Date Diagnosed Date Resolved Date Somnolence, daytime 02/27/2018 09/29/19 19 Elevated blood pressure reading 02/27/2018 09/28/2018 documented as of this encounter (statuses as of 02/25/2023) [facility] Positive hepatitis C antibody test- Primary Other and unspecified nonspecific immunological findings [facility] Diagnosis Impacted cerumen of left ear- Primary Impacted cerumen Acute non-recurrent sinusitis of other sinus [facility] Diagnosis Perianal abscess- Primary Abscess of anal and rectal regions [facility] Diagnosis Anxiety and depression- Primary Dysthymic disorder Obesity, Class I, BMI 30-34.9 Obesity, unspecified KEYLA (obstructive sleep apnea) Obstructive sleep apnea (adult) (pediatric) Encounter for immunization Need for other specified prophylactic vaccination against single bacterial disease [facility] COVID- [facility] Diagnosis Dermatitis Contact dermatitis and other eczema, due to unspecified cause [facility] Diagnosis Non-recurrent acute suppurative otitis media of both ears without spontaneous rupture of tympanic membranes- Primary [facility] Diagnosis Anxiety and depression Dysthymic disorder [facility] Diagnosis Bug bite, initial encounter- Primary Skin infection Unspecified local infection of skin and subcutaneous tissue [facility]* Diagnosis Otitis media, recurrent, left- Primary [...] single bacterial disease [facility]* Diagnosis Abdominal pain, left lower quadrant- Primary Rectal bleeding Hemorrhage of rectum and anus Subareolar mass of left breast Need for COVID-19 vaccine [facility]* Diagnosis Abdominal pain, left lower quadrant Rectal bleeding Hemorrhage of rectum and anus [facility] Diagnosis Hemorrhage of rectum and anus- Primary Abdominal pain, left lower quadrant Rectal bleeding Hemorrhage of rectum and anus [facility]* Diagnosis Subareolar mass of left breast [facility]* Diagnosis Subareolar mass of left breast [facility]* Diagnosis Anal warts- Primary Condyloma acuminatum [facility] Diagnosis Elevated blood pressure reading in office without diagnosis of hypertension- Primary Encounter for immunization Need for other specified prophylactic vaccination against single bacterial disease Acute suppurative otitis media of both ears without spontaneous rupture of tympanic membranes, recurrence not specified Other infective acute otitis externa of both ears Acute cough Acute non-recurrent frontal sinusitis [facility]* Diagnosis Other infective acute otitis externa of both ears Acute suppurative otitis media of both ears without spontaneous rupture of tympanic membranes, recurrence not specified Acute non-recurrent frontal sinusitis [facility]* Diagnosis Acute cough- Primary [facility] Diagnosis Abdominal wall cellulitis- Primary Cellulitis and abscess of trunk [facility] Diagnosis Abdominal wall cellulitis- Primary Cellulitis and abscess of trunk [facility] Diagnosis Anxiety and depression Dysthymic disorder [facility]* Diagnosis Anal warts- Primary Condyloma acuminatum [facility] Diagnosis Preoperative examination- Primary Preoperative examination, unspecified KEYLA (obstructive sleep apnea) Obstructive sleep apnea (adult) (pediatric) Anxiety and depression Dysthymic disorder Hyperlipidemia, unspecified hyperlipidemia type Psoriasis Other psoriasis Anal warts Condyloma acuminatum * Assessment & Plan Note - Prisca Li PA-C - 08/04/2023 2:46 PM EDT Associated Problem(s): Psoriasis Assessment: on Taltz * Assessment & Plan Note - Prisca Li PA-C - 08/04/2023 2:03 PM EDT Associated Problem(s): HLD (hyperlipidemia) Assessment: not on medication * Assessment & Plan Note - Prisca Li PA-C - 08/04/2023 2:02 PM EDT Associated Problem(s): Anxiety and depression Assessment: on cymbalta * Assessment & Plan Note - Prisca Li PA-C - 08/04/2023 2:02 PM EDT Associated Problem(s): KEYLA (obstructive sleep apnea) Assessment: compliant with CPAP [facility]* Diagnosis Seasonal allergic rhinitis, unspecified trigger [facility] Diagnosis Anal warts- Primary Condyloma acuminatum [facility]* Diagnosis Pain in left foot Pain in limb [facility] Diagnosis Chronic pain of left ankle- Primary Calcaneal spur of left foot Calcaneal spur [facility] Diagnosis History of seizure- Primary Personal history of other disorders of nervous system and sense organs Need for vaccination Need for prophylactic vaccination and inoculation against unspecified single disease [facility] Diagnosis Routine medical exam- Primary Routine general medical examination at a [facility] Dermatitis Contact dermatitis and other [...] joint, multiple sites [facility]* Diagnosis Seizure disorder (HCC)- Primary Unspecified epilepsy without mention of intractable epilepsy History of seizure Personal history of other disorders of nervous system and sense organs [facility] Diagnosis Chronic pain of left ankle [facility]* Diagnosis History of seizure Personal history of other disorders of nervous system and sense organs Seizure disorder (HCC) Unspecified epilepsy without mention of intractable epilepsy [facility]* Diagnosis Chronic heel pain, left- Primary [facility]* Diagnosis Preoperative examination- Primary Preoperative examination, unspecified KEYLA (obstructive sleep apnea) Obstructive sleep apnea (adult) (pediatric) Anxiety and depression Dysthymic disorder Hyperlipidemia, unspecified hyperlipidemia type Psoriasis Other psoriasis Chronic heel pain, left- Primary [facility]* Diagnosis Preoperative examination- Primary Preoperative examination, unspecified KEYLA (obstructive sleep apnea) Obstructive sleep apnea (adult) (pediatric) Anxiety and depression Dysthymic disorder Hyperlipidemia, unspecified hyperlipidemia type Psoriasis Other psoriasis Achilles tendinitis of left lower extremity- Primary Achilles bursitis or tendinitis [facility]* Diagnosis Preoperative examination- Primary Preoperative examination, unspecified KEYLA (obstructive sleep apnea) Obstructive sleep apnea (adult) (pediatric) Anxiety and depression Dysthymic disorder Hyperlipidemia, unspecified hyperlipidemia type Psoriasis Other psoriasis Chronic heel pain, left- Primary Achilles tendinitis of left lower extremity Achilles bursitis or tendinitis [facility] Diagnosis Preoperative examination- Primary Preoperative examination, unspecified KEYLA (obstructive sleep apnea) Obstructive sleep apnea (adult) (pediatric) Anxiety and depression Dysthymic disorder Hyperlipidemia, unspecified hyperlipidemia type Psoriasis Other psoriasis Chronic heel pain, left- Primary Achilles tendinitis of left lower extremity Achilles bursitis or tendinitis Pre-op testing Preoperative examination, unspecified Achilles tendinitis of left lower extremity Achilles bursitis or tendinitis [facility]* Diagnosis Preoperative examination- Primary Preoperative examination, unspecified KEYLA (obstructive sleep apnea) Obstructive sleep apnea (adult) (pediatric) Anxiety and depression Dysthymic disorder Hyperlipidemia, unspecified hyperlipidemia type Psoriasis Other psoriasis Suspected COVID-19 virus infection- Primary Acute otitis media, left Unspecified otitis media Achilles tendinitis of left lower extremity Achilles bursitis or tendinitis [facility] Diagnosis Preoperative examination- Primary Preoperative examination, unspecified KEYLA (obstructive sleep apnea) Obstructive sleep apnea (adult) (pediatric) Anxiety and depression Dysthymic disorder Hyperlipidemia, unspecified hyperlipidemia type Psoriasis Other psoriasis Rectal bleeding- Primary Hemorrhage of rectum and anus Achilles tendinitis of left lower extremity Achilles bursitis or tendinitis [facility]* Diagnosis Constipation, unspecified constipation type Lower [...] bursitis or tendinitis [facility] Diagnosis Preoperative examination- Primary Preoperative examination, [...] bring machine DOS [facility] Diagnosis Preoperative examination- Primary Preoperative examination, [...] bursitis or tendinitis [facility]* Diagnosis Preoperative examination- Primary Preoperative examination, [...] bursitis or tendinitis documented [facility]* Diagnosis Preoperative examination- Primary Preoperative examination, [...] unspecified trigger Achilles tendinitis of left lower extremity- Primary Achilles bursitis or tendinitis documented [facility] this [facility]* Diagnosis Preoperative examination- Primary Preoperative examination, [...] bursitis or tendinitis documented [facility]* Diagnosis Preoperative examination- Primary Preoperative examination, [...] unspecified trigger Achilles tendinitis of left lower extremity- Primary Achilles bursitis or tendinitis Postoperative pain Other acute postoperative pain [facility] Diagnosis Preoperative examination- Primary Preoperative examination, [...] unspecified trigger Achilles tendinitis of left lower extremity- Primary Achilles bursitis or tendinitis [facility] Diagnosis Preoperative examination- Primary Preoperative examination, [...] sense organs Seasonal allergic rhinitis, unspecified trigger Sensorineural hearing loss (SNHL) of left ear with unrestricted hearing of right ear [facility] Diagnosis Preoperative examination- Primary Preoperative examination, [...] Seasonal allergic rhinitis, unspecified trigger Bladder wall thickening Other specified disorders of bladder [facility] Diagnosis Preoperative examination- Primary Preoperative examination, [...] unspecified trigger Achilles tendinitis of left lower extremity- Primary Achilles bursitis or tendinitis [facility] Diagnosis Preoperative examination- Primary Preoperative examination, [...] sense organs Seasonal allergic rhinitis, unspecified trigger Ear pressure, left Asymmetrical sensorineural hearing loss Sensorineural hearing loss, asymmetrical Chronic eczematous otitis externa of both ears Dysfunction of left eustachian tube Dysfunction of Eustachian tube [facility] Diagnosis Preoperative examination- Primary Preoperative examination, [...] unspecified trigger Achilles tendinitis of left lower extremity- Primary Achilles bursitis or tendinitis [facility]* Diagnosis Preoperative examination- Primary Preoperative examination, [...] incontinence Mixed incontinence urge and stress (male)(female) documented [facility] this [facility]* Diagnosis Preoperative examination- Primary Preoperative examination, [...] unspecified trigger Achilles tendinitis of left lower extremity- Primary Achilles bursitis or tendinitis [facility] Diagnosis Preoperative examination- Primary Preoperative examination, [...] sense organs Seasonal allergic rhinitis, unspecified trigger Treatment not available- Primary Procedure not carried out for other reasons [facility] Diagnosis Preoperative examination- Primary Preoperative examination, [...] unspecified trigger Achilles tendinitis of left lower extremity- Primary Achilles bursitis or tendinitis documented [facility]* Diagnosis Preoperative examination- Primary Preoperative examination, [...] sense organs Seasonal allergic rhinitis, unspecified trigger Viral upper respiratory tract infection- Primary Acute upper respiratory infections of unspecified site [facility] Diagnosis Preoperative examination- Primary Preoperative examination, [...] unspecified trigger Achilles tendinitis of left lower extremity- Primary Achilles bursitis or tendinitis [facility] Diagnosis Preoperative examination- Primary Preoperative examination, [...] sense organs Seasonal allergic rhinitis, unspecified trigger Asymmetrical sensorineural hearing loss- Primary Sensorineural hearing loss, asymmetrical Referred otalgia of left ear Referred otogenic pain [facility] Diagnosis Preoperative examination- Primary Preoperative examination, [...] unspecified trigger Achilles tendinitis of left lower extremity- Primary Achilles bursitis or tendinitis Referred otalgia of left ear Referred otogenic pain [facility] Diagnosis Preoperative examination- Primary Preoperative examination, [...] unspecified trigger Achilles tendinitis of left lower extremity- Primary Achilles bursitis or tendinitis documented [facility]* Diagnosis Preoperative examination- Primary Preoperative examination, [...] incontinence Mixed incontinence urge and stress (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 documented [facility]* Diagnosis Preoperative examination- Primary Preoperative examination, [...] sense organs Seasonal allergic rhinitis, unspecified trigger Neoplasm of uncertain behavior of skin- Primary Lichen simplex chronicus Lichenification and lichen simplex chronicus Xerosis cutis Other specified disease of sebaceous glands Pruritus of skin Unspecified pruritic disorder documented [facility]* Diagnosis Preoperative examination- Primary Preoperative examination, [...] unspecified trigger Achilles tendinitis of left lower extremity- Primary Achilles bursitis or tendinitis documented [facility]* Diagnosis Preoperative examination- Primary Preoperative examination, [...] unspecified trigger Achilles tendinitis of left lower extremity- Primary Achilles bursitis or tendinitis documented in this encounter [facility]* Diagnosis Preoperative examination- Primary Preoperative examination, [...] unspecified trigger Achilles tendinitis of left lower extremity- Primary Achilles bursitis or tendinitis documented in this encounter [facility] note* Diagnosis Preoperative examination- Primary Preoperative examination, [...] sense organs Seasonal allergic rhinitis, unspecified trigger Viral URI with cough- Primary Acute upper respiratory infections of unspecified site documented in this encounter [facility] note* Diagnosis Preoperative examination- Primary Preoperative examination, [...] sense organs Seasonal allergic rhinitis, unspecified trigger Viral URI with cough- Primary Acute upper respiratory infections of unspecified site Flu-like symptoms Other general symptoms documented [facility]* Diagnosis Preoperative examination- Primary Preoperative examination, [...] unspecified trigger Achilles tendinitis of left lower extremity- Primary Achilles bursitis or tendinitis documented [facility] this [facility]* Diagnosis Preoperative examination- Primary Preoperative examination, [...] sense organs Seasonal allergic rhinitis, unspecified trigger Hyperlipidemia, unspecified hyperlipidemia type- Primary Anxiety and depression Dysthymic disorder Achilles tendinitis of left lower extremity Achilles bursitis or tendinitis Impaired fasting glucose History of HPV infection Personal history of other infectious and parasitic disease documented [facility]* Diagnosis Preoperative examination- Primary Preoperative examination, [...] sense organs Seasonal allergic rhinitis, unspecified trigger Screening for colorectal cancer- Primary Special screening for malignant neoplasms, colon documented in this encounter [facility] note* Diagnosis Preoperative examination- Primary Preoperative examination, [...] sense organs Seasonal allergic rhinitis, unspecified trigger Fever, unspecified fever cause- Primary Viral infection Unspecified viral infection, in conditions classified elsewhere and of unspecified site Sore throat Acute pharyngitis documented in this encounter [facility] note* Diagnosis Preoperative examination- Primary Preoperative examination, [...] sense organs Seasonal allergic rhinitis, unspecified trigger KEYLA (obstructive sleep apnea)- Primary Obstructive sleep apnea (adult) (pediatric) Encounter for hearing aid consultation documented in this encounter [facility] for referral (narrative)* Diagnostic Procedure Only (Routine) - Pending Review Specialty Diagnoses / Procedures Referred By Marian dash Referred To Contact [facility] Diagnoses Subareolar mass of left breast Procedures US BREAST LTD LEFT US BREAST UNI REAL TIME WITH IMAGE LIMITED Francisco Javier Osorio MD [address] [place] [address] [facility] [address] [place] [address] Referral ID Status Reason Start Date Expiration Date Visits Requested Visits Authorized [id number] Pending Review Auto-Generat ed Referral 3 03/01/2024 1 1 * Diagnostic Procedure Only (Routine) - Pending Review Specialty Diagnoses / Procedures Referred By Marian t Referred To Contact [facility] Diagnoses Subareolar mass of left breast Procedures [facility] LEFT DIAGNOSTIC MAMMOGRAPHY COMPUTER-AIDED DETCJ UNI Francisco Javier Osorio MD [address] [id number] [facility] [address] [place] [address] Referral ID Status Reason Start Date Expiration Date Visits Requested Visits Authorized [id number] Pending Review Auto-Generat ed Referral 3 03/01/2024 1 1 * Consult, Test, Treat (Routine) - Authorized Specialty Diagnoses / Procedures Referred By Marian dash Referred To Contact General Surgery Diagnoses Abdominal pain, left lower quadrant Rectal bleeding Procedures CONSULT TO GENERAL SURGERY OFFICE/OUTPATIENT NEW HIGH MDM 60-74 MINUTES Francisco Javier Osorio MD [address] [place] [address] Referral ID Status Reason Start Date Expiration Date Visits Requested Visits Authorized [id number] Authorized PCP Requested Referral 3 01/31/2024 1 1 [facility] for referral (narrative)* Outpatient Procedure (Routine) - Authorized Specialty Diagnoses / Procedures Referred By Marian t Referred To Contact [facility] Diagnoses Abdominal pain, left lower quadrant Rectal bleeding Procedures COLONOSCOPY DIAGNOSTIC COLONOSCOPY FLX DX W/COLLJ SPEC WHEN PFRMD Jonathan Nielsen MD [address] [place] [address] [address] Referral ID Status Reason Start Date Expiration Date Visits Requested Visits Authorized [id number] Authorized Auto-Generat ed Referral 02/02/2024 1 1 [facility] for referral (narrative)* Outpatient Procedure (Routine) - Closed Specialty Diagnoses / Procedures Referred By Contac t Referred To Contact [facility] Diagnoses Abdominal pain, left lower quadrant Rectal bleeding Procedures COLONOSCOPY DIAGNOSTIC COLONOSCOPY FLX DX W/COLLJ SPEC WHEN PFRMD Jonathan Nielsen MD [address] [place] [place] [address] [address] Referral ID Status Reason Start Date Expiration Date V isits Requested Visits Authorized [id number] Closed Auto-Generate d Referral 02/01/2023 02/02/2024 1 1 [facility] for referral (narrative)* Diagnostic Procedure Only (Routine) - Closed Specialty Diagnoses / Procedures Referred By [facility] [facility] Referred To Contact [facility] Diagnoses Subareolar mass of left breast Procedures US BREAST LTD LEFT US BREAST UNI REAL TIME WITH IMAGE LIMITED Francisco Javier Osorio MD [address] [place] [address] [facility] [address] [place] [phone] Referral ID Status Reason Start Date Expiration Date V isits Requested Visits Authorized [id number] Closed Auto-Generate d Referral 01/31/2023 03/01/2024 1 1 [facility] for referral (narrative)* Outpatient Procedure (Routine) - Authorized Specialty Diagnoses / Procedures Referred By Marian t Referred To Contact [facility] Diagnoses History of seizure Seizure disorder (HCC) Procedures EPIL EEG ROUTINE ELECTROENCEPHALOGRAM REC COMA/SLEEP ONLY Madhuri Casiano PA-C [address] [place] [address] [address] Referral ID Status Reason Start Date Expiration Date Visits Requested Visits Authorized [id number] Authorized Auto-Generat ed Referral 11/01/2023 10/31/2024 1 1 [facility] for referral (narrative)* Diagnostic Procedure Only (Routine) - Closed Specialty Diagnoses / Procedures Referred By Marian t Referred To Contact MR IMAGING Diagnoses Chronic pain of left ankle Procedures MRI ANKLE WO IVCON LEFT MRI ANY JT LOWER EXTREM W/O CONTRAST Aston Blackwell [address] [place] [id number] Mr Imaging [facility] Referral ID Status Reason Start Date Expiration Date V isits Requested Visits Authorized [id number] Closed Auto-Generate d Referral 10/10/2023 04/10/2024 1 1 [facility] for referral (narrative)* Outpatient Procedure (Routine) - New Request Specialty Diagnoses / Procedures Referred By Betzaidaac t Referred To Contact [facility] Diagnoses Bladder wall thickening Urgency of urination Mixed stress and urge urinary incontinence Procedures CYSTO/TRUS ONLY CYSTOURETHROSCOPY US, TRANSRECTAL Jonathan Foster APRN.CNP, DNP [address] [place] [address] [place] [id number] Referral ID Status Reason Start Date Expiration Date Visits Requested Visits Authorized [id number] New Request Auto-Generat ed Referral 01/22/2025 1 1 * MRI/CT (Routine) - Pending Review Specialty Diagnoses / Procedures Referred By Contac t Referred To Contact CT IMAGING Diagnoses Bladder wall thickening Procedures CT UROGRAM WO/W IVCON CT ABD & PELVIS W/WO CONTRST 1+ BODY Jonathan Rossi APRN.CARINA, GILBERTO [address] [place] [address] [place] [address] Referral ID Status Reason Start Date Expiration Date Visits Requested Visits Authorized [id number] Pending Review Auto-Generat ed Referral 02/21/2025 1 1 [facility] for referral (narrative)* Diagnostic Procedure Only (Routine) - Closed Specialty Diagnoses / Procedures Referred By Contac t Referred To Contact XR IMAGING Diagnoses Achilles tendinitis of left lower extremity Procedures XR ANKLE GENERAL 3V AP/LAT/OBL LEFT RADEX ANKLE COMPLETE MINIMUM 3 VIEWS Carmen Rojas MD [address] [place] [address] Xr Imaging [facility]95 Referral ID Status Reason Start Date Expiration Date V isits Requested Visits Authorized [id number] Closed Auto-Generate d Referral 12/13/2023 01/11/2025 1 1 [facility] for referral (narrative)* Diagnostic Procedure Only (Routine) - Closed Specialty Diagnoses / Procedures Referred By Contac t Referred To Contact MR IMAGING Diagnoses Sensorineural hearing loss (SNHL) of left ear with unrestricted hearing of right ear Procedures MRI BRAIN WO/W IVCON MRI BRAIN BRAIN STEM W/O W/CONTRAST MATERIAL Latisha Birmingham PA-C [address] [place] [address] [place] [address] Referral ID Status Reason Start Date Expiration Date V isits Requested Visits Authorized [id number] Closed Auto-Generate d Referral 02/09/2024 05/09/2024 1 1 [facility] for visit Narrative* Outpatient Procedure (Routine) - Closed Specialty Diagnoses / Procedures Referred By Contac t Referred To Contact [facility] Diagnoses Abdominal pain, left lower quadrant Rectal bleeding Procedures COLONOSCOPY DIAGNOSTIC COLONOSCOPY FLX DX W/COLLJ SPEC WHEN Jonathan Brooks MD [address] [place] [address] [facility] [address] [place] [address] Referral ID Status Reason Start Date Expiration Date V isits Requested Visits Authorized [id number] Closed Auto-Generate d Referral 02/01/2023 02/02/2024 1 1 [facility] for visit Narrative* Diagnostic Procedure Only (Routine) - Closed Specialty Diagnoses / Procedures Referred By Contac t Referred To Contact [facility] Diagnoses Subareolar mass of left breast Procedures [facility] LEFT DIAGNOSTIC MAMMOGRAPHY COMPUTER-AIDED DETCJ UNI Francisco Javier Osorio MD [address] [place] [address] [facility] [address] [place] [address] Referral ID Status Reason Start Date Expiration Date V isits Requested Visits Authorized [id number] Closed Auto-Generate d Referral 01/31/2023 03/01/2024 1 1 [facility] for visit Narrative* Diagnostic Procedure Only (Routine) - Closed Specialty Diagnoses / Procedures [facility] Diagnoses Pain in left foot Procedures XR FOOT GENERAL 3V AP/LAT/OBL LEFT RADEX FOOT COMPLETE MINIMUM 3 VIEWS Aston Mcmahan [address] [place] [address] [place] [address] Referral ID Status Reason Start Date Expiration Date V isits Requested Visits Authorized [id number] Closed Auto-Generate d Referral 10/10/2023 11/08/2024 1 1 [facility] for visit Narrative* Diagnostic Procedure Only (Routine) - Closed Specialty Diagnoses / Procedures Referred By Betzaidaac t Referred To Contact MR IMAGING Diagnoses Chronic pain of left ankle Procedures MRI ANKLE WO IVCON LEFT MRI ANY JT LOWER EXTREM W/O CONTRAST MATRL Aston Mcmahan [address] [place] [address] [place] [address] Referral ID Status Reason Start Date Expiration Date V isits Requested Visits Authorized [id number] Closed Auto-Generate d Referral 10/10/2023 04/10/2024 1 1 [facility] for visit Narrative* Outpatient Procedure (Routine) - Closed Specialty Diagnoses / Procedures Referred By Contac t Referred To Contact [facility] Diagnoses History of seizure Seizure disorder (HCC) Procedures EPIL EEG ROUTINE ELECTROENCEPHALOGRAM REC COMA/SLEEP ONLY Madhuri Casiano PA-C [address] [place] [address] [facility] [place] [address] [place] [address] Referral ID Status Reason Start Date Expiration Date V isits Requested Visits Authorized [id number] Closed Auto-Generate d Referral 11/01/2023 10/31/2024 1 1 [facility] for visit Narrative* Diagnostic Procedure Only (Routine) - Closed Specialty Diagnoses / Procedures Referred By Contac t Referred To Contact XR IMAGING Diagnoses Achilles tendinitis of left lower extremity Procedures XR ANKLE GENERAL 3V AP/LAT/OBL LEFT RADEX ANKLE COMPLETE MINIMUM 3 VIEWS Carmen Rojas MD [address] [place] [address] Xr Imaging [facility]95 Referral ID Status Reason Start Date Expiration Date V isits Requested Visits Authorized [id number] Closed Auto-Generate d Referral 12/13/2023 01/11/2025 1 1 [facility] for visit Narrative* Diagnostic Procedure Only (Routine) - Closed Specialty Diagnoses / Procedures Referred By Contac t Referred To Contact MR IMAGING Diagnoses Sensorineural hearing loss (SNHL) of left ear with unrestricted hearing of right ear Procedures MRI BRAIN WO/W IVCON MRI BRAIN BRAIN STEM W/O W/CONTRAST MATERIAL Latisha Birmingham PA-C [address] [place] [address] [place] [address] Referral ID Status Reason Start Date Expiration Date V isits Requested Visits Authorized [id number] Closed Auto-Generate d Referral 02/09/2024 05/09/2024 1 1 [facility] Summary Purpose Family History No Family History [...] Referral Specialty Diagnoses / Procedures Referred By Betzaidaac t Referred To Contact [facility] Diagnoses Chronic pain of left ankle Procedures CONSULT TO PHYSICAL THERAPY PHYSICAL THERAPY EVALUATION HIGH COMPLEX 45 MINS Aston Mcmahan [address] [place] [address] [facility] [place] [address] [place] [address] Referral ID Status Reason Start Date Expiration Date Visits Requested Visits Authorized [id number] Authorized Auto-Generat ed Referral 04/11/2023 04/10/2024 20 20 Specialty Diagnoses / Procedures Referred By Marian t Referred To Contact [facility] IMAG[facility] Diagnoses Chronic pain of left ankle Procedures MRI ANKLE WO IVCON LEFT MRI ANY JT LOWER EXTREM W/O CONTRAST MATRL Aston Mcmahan [address] [place] [address] [place] [address] Referral ID Status Reason Start Date Expiration Date Visits Requested Visits Authorized [id number] Pending Review Auto-Generat ed Referral 10/10/2023 11/08/2024 1 1 Specialty Diagnoses / Procedures Referred By Marian t Referred To Contact Neurology Diagnoses History of seizure Procedures CONSULT TO NEUROLOGY OFFICE/OUTPATIENT [facility] MDM 60 [place] [address] [place] [address] Referral ID Status Reason Start Date Expiration Date Visits Requested Visits Authorized [id number] Authorized PCP Requested Referral 10/28/2023 10/27/2024 1 1 Specialty Diagnoses / Procedures Referred By Marian t Referred To Contact Dermatology Diagnoses Dermatitis Psoriasis Procedures CONSULT TO DERMATOLOGY Francisco Javier Osorio MD [address] [place] [address] Referral ID Status Reason Start Date Expiration Date Visits Requested Visits Authorized [id number] Ref Not Required PCP Requested Referral 10/31/2023 10/30/2024 1 1 Specialty Diagnoses / Procedures Referred By Contac t Referred To Contact Procedures HEARING TEST/AUDIOGRAM COMPRE AUDIOMETRY THRESHOLD EVAL German Garsia, AUD [address] [place] [address] [facility] [address] [place] [address] Referral ID Status Reason Start Date Expiration Date Visits Requested Visits Authorized [id number] New Request Auto-Generat ed Referral 01/19/2025 1 1 Specialty Diagnoses / Procedures Referred By Contac t Referred To Contact MR IM[facility] Diagnoses Sensorineural hearing loss (SNHL) of left ear with unrestricted hearing of right ear Procedures MRI BRAIN WO/W IVCON MRI BRAIN BRAIN STEM W/O W/CONTRAST MATERIAL Latisha Birmingham PA-C [address] [place] [address] [place] [address] Referral ID Status Reason Start Date Expiration Date Visits Requested Visits Authorized [id number] New Request Auto-Generat ed Referral 02/17/2025 1 1 Specialty Diagnoses / Procedures Referred By Contac t Referred To Contact Diagnoses Achilles tendinitis of left lower extremity Postoperative pain Ca Sandra PA-C [address] [place] [address] Referral ID Status Reason Start Date Expiration Date V isits Requested Visits Authorized [id number] Pending Review 02/10/2024 04/10/2024 1 1 Specialty Diagnoses / Procedures Referred By Contac t Referred To Contact Ent - Otolaryngology Diagnoses Ear pressure, left Procedures CONSULT TO ENT OFFICE/OUTPATIENT NEW HIGH MDM 60 MINUTES Latisha Birmingham PA-C [address] [place] [address] Referral ID Status Reason Start Date Expiration Date V isits Requested Visits Authorized [id number] Closed PCP Requested Referral 02/27/2024 02/26/2025 1 1 Specialty Diagnoses / Procedures Referred By Contac t Referred To Contact [facility] Diagnoses Achilles tendinitis of left lower extremity Procedures CONSULT TO PHYSICAL THERAPY PHYSICAL THERAPY EVALUATION HIGH COMPLEX 45 MINS Carmen Rojas MD [address] [place] [id number] [facility] [place] [address] [place] [address] Referral ID Status Reason Start Date Expiration Date Visits Requested Visits Authorized [id number] Pending Review Auto-Generat ed Referral 03/15/2024 03/15/2025 1 1 Specialty Diagnoses / Procedures Referred By Contac t Referred To Contact Dentistry Diagnoses Referred otalgia of left ear Procedures CONSULT TO DENTISTRY OFFICE/OUTPATIENT NEW HIGH MDM 60 [place] [address] [place] [phone] Referral ID Status Reason Start Date Expiration Date Visits Requested Visits Authorized [id number] New Request PCP Requested Referral 04/09/2025 1 1 Specialty Diagnoses / Procedures Referred By Contac t Referred To Contact [facility] Diagnoses Referred otalgia of left ear Procedures CONSULT TO PHYSICAL THERAPY PHYSICAL THERAPY EVALUATION HIGH COMPLEX [address] [place] [address] [place] [address] [facility] [place] [address] [place] [address] Referral ID Status Reason Start Date Expiration Date Visits Requested Visits Authorized [id number] Pending Review Auto-Generat ed Referral 04/09/2025 1 1 Specialty Diagnoses / Procedures Referred By Contac t Referred To Contact Diagnoses Asymmetrical sensorineural hearing loss Procedures HEARING TEST/AUDIOGRAM COMPRE AUDIOMETRY THRESHOLD [place] [address] [place] [address] [facility] [address] [place] [address] Referral ID Status Reason Start Date Expiration Date Visits Requested Visits Authorized [id number] New Request Auto-Generat ed Referral 07/08/2024 1 1 Specialty Diagnoses / Procedures Referred By Contac t Referred To Contact [facility] Diagnoses Urgency of urination Mixed stress and urge urinary incontinence Procedures CONSULT TO PHYSICAL THERAPY PHYSICAL THERAPY EVALUATION HIGH COMPLEX 45 MINS Jonathan Foster APRN.CERTIFIED CAREGIVER, DNP [address] [place] [address] [facility] [place] [address] [place] [address] Referral ID Status Reason Start Date Expiration Date Visits Requested Visits Authorized [id number] Pending Review Auto-Generat ed Referral 04/30/2024 04/23/2025 1 1 Additional Source Comments (unrecognized sect ion and content) No Status Records FoundNo Status Records FoundNo Status Records FoundNo Status Records FoundNo Status Records FoundNo Status Records FoundNo Status Records FoundNo Status Records Found INFORMATION SOURCE (unrecogn ized section and content) DATE CREATED AUTHOR 10/03/2017 [facility] DATE CREATED AUTHOR AUTHOR'S ORGANIZ ATION 10/04/2017 [facility] DATE CREATED AUTHOR AUTHOR'S ORGANIZ ATION 11/03/2017 [facility] DATE CREATED AUTHOR AUTHOR'S ORGANIZ ATION 08/11/2023 [facility] DATE CREATED AUTHOR AUTHOR'S ORGANIZ ATION 02/02/2024 [facility] DATE CREATED AUTHOR AUTHOR'S ORGANIZ ATION 09/27/2024 [facility] DATE CREATED AUTHOR AUTHOR'S ORGANIZ ATION 01/19/2025 [facility] DATE CREATED AUTHOR AUTHOR'S ORGANIZ ATION 02/15/2025 [facility] Source Comments (unrecognize d section and content) In the event this informatio n is protected by the Federal Confidentiality of Alcohol and Drug Abuse Patient Records regulations: The Federal rules restrict any use of the information to criminally investigate or prosecute any alcohol or drug abuse patient.[facility] the event this information is protected by the Federal Confidentiality of Alcohol and Drug Abuse Patient Records regulations: The Federal rules restrict any use of the information to criminally investigate or prosecute any alcohol or drug abuse patient.[facility]imaIn the event this information is protected by the Federal Confidentiality of Alcohol and Drug Abuse Patient Records regulations: The Federal rules restrict any use of the information to criminally investigate or prosecute any alcohol or drug abuse patient.[facility]imaIn the event this information is protected by the Federal Confidentiality of Alcohol and Drug Abuse Patient Records regulations: The Federal rules restrict any use of the information to criminally investigate or prosecute any alcohol or drug abuse patient.[facility]imaIn the event this information is protected by the Federal Confidentiality of Alcohol and Drug Abuse Patient Records regulations: The Federal rules restrict any use of the information to criminally investigate or prosecute any alcohol or drug abuse patient.[facility]imaIn the event this information is protected by the Federal Confidentiality of Alcohol and Drug Abuse Patient Records regulations: The Federal rules restrict any use of the information to criminally investigate or prosecute any alcohol or drug abuse patient.[facility]imaIn the event this information is protected by the Federal Confidentiality of Alcohol and Drug Abuse Patient Records regulations: The Federal rules restrict any use of the information to criminally investigate or prosecute any alcohol or drug abuse patient.[facility]imaIn the event this information is protected by the Federal Confidentiality of Alcohol and Drug Abuse Patient Records regulations: The Federal rules restrict any use of the information to criminally investigate or prosecute any alcohol or drug abuse patient.[facility]imaIn the event this information is protected by the Federal Confidentiality of Alcohol and Drug Abuse Patient Records regulations: The Federal rules restrict any use of the information to criminally investigate or prosecute any alcohol or drug abuse patient.[facility]imaIn the event this information is protected by the Federal Confidentiality of Alcohol and Drug Abuse Patient Records regulations: The Federal rules restrict any use of the information to criminally investigate or prosecute any alcohol or drug abuse patient.[facility]imaIn the event this information is protected by the Federal Confidentiality of Alcohol and Drug Abuse Patient Records regulations: The Federal rules restrict any use of the information to criminally investigate or prosecute any alcohol or drug abuse patient.[facility]imaIn the event this information is protected by the Federal Confidentiality of Alcohol and Drug Abuse Patient Records regulations: The Federal rules restrict any use of the information to criminally investigate or prosecute any alcohol or drug abuse patient.[facility]imaIn the event this information is protected by the Federal Confidentiality of Alcohol and Drug Abuse Patient Records regulations: The Federal rules restrict any use of the information to criminally investigate or prosecute any alcohol or drug abuse patient.[facility]imaIn the event this information is protected by the Federal Confidentiality of Alcohol and Drug Abuse Patient Records regulations: The Federal rules restrict any use of the information to criminally investigate or prosecute any alcohol or drug abuse patient.[facility]imaIn the event this information is protected by the Federal Confidentiality of Alcohol and Drug Abuse Patient Records regulations: The Federal rules restrict any use of the information to criminally investigate or prosecute any alcohol or drug abuse patient.[facility]imaIn the event this information is protected by the Federal Confidentiality of Alcohol and Drug Abuse Patient Records regulations: The Federal rules restrict any use of the information to criminally investigate or prosecute any alcohol or drug abuse patient.[facility]imaIn the event this information is protected by the Federal Confidentiality of Alcohol and Drug Abuse Patient Records regulations: The Federal rules restrict any use of the information to criminally investigate or prosecute any alcohol or drug abuse patient.[facility]imaIn the event this information is protected by the Federal Confidentiality of Alcohol and Drug Abuse Patient Records regulations: The Federal rules restrict any use of the information to criminally investigate or prosecute any alcohol or drug abuse patient.[facility]imaIn the event this information is protected by the Federal Confidentiality of Alcohol and Drug Abuse Patient Records regulations: The Federal rules restrict any use of the information to criminally investigate or prosecute any alcohol or drug abuse patient.[facility]imaIn the event this information is protected by the Federal Confidentiality of Alcohol and Drug Abuse Patient Records regulations: The Federal rules restrict any use of the information to criminally investigate or prosecute any alcohol or drug abuse patient.[facility]imaIn the event this information is protected by the Federal Confidentiality of Alcohol and Drug Abuse Patient Records regulations: The Federal rules restrict any use of the information to criminally investigate or prosecute any alcohol or drug abuse patient.[facility]imaIn the event this information is protected by the Federal Confidentiality of Alcohol and Drug Abuse Patient Records regulations: The Federal rules restrict any use of the information to criminally investigate or prosecute any alcohol or drug abuse patient.[facility]imaIn the event this information is protected by the Federal Confidentiality of Alcohol and Drug Abuse Patient Records regulations: The Federal rules restrict any use of the information to criminally investigate or prosecute any alcohol or drug abuse patient.[facility]imaIn the event this information is protected by the Federal Confidentiality of Alcohol and Drug Abuse Patient Records regulations: The Federal rules restrict any use of the information to criminally investigate or prosecute any alcohol or drug abuse patient.[facility]imaIn the event this information is protected by the Federal Confidentiality of Alcohol and Drug Abuse Patient Records regulations: The Federal rules restrict any use of the information to criminally investigate or prosecute any alcohol or drug abuse patient.[facility]imaIn the event this information is protected by the Federal Confidentiality of Alcohol and Drug Abuse Patient Records regulations: The Federal rules restrict any use of the information to criminally investigate or prosecute any alcohol or drug abuse patient.[facility]imaIn the event this information is protected by the Federal Confidentiality of Alcohol and Drug Abuse Patient Records regulations: The Federal rules restrict any use of the information to criminally investigate or prosecute any alcohol or drug abuse patient.[facility]imaIn the event this information is protected by the Federal Confidentiality of Alcohol and Drug Abuse Patient Records regulations: The Federal rules restrict any use of the information to criminally investigate or prosecute any alcohol or drug abuse patient.[facility]imaIn the event this information is protected by the Federal Confidentiality of Alcohol and Drug Abuse Patient Records regulations: The Federal rules restrict any use of the information to criminally investigate or prosecute any alcohol or drug abuse patient.[facility]imaIn the event this information is protected by the Federal Confidentiality of Alcohol and Drug Abuse Patient Records regulations: The Federal rules restrict any use of the information to criminally investigate or prosecute any alcohol or drug abuse patient.[facility]imaIn the event this information is protected by the Federal Confidentiality of Alcohol and Drug Abuse Patient Records regulations: The Federal rules restrict any use of the information to criminally investigate or prosecute any alcohol or drug abuse patient.[facility]imaIn the event this information is protected by the Federal Confidentiality of Alcohol and Drug Abuse Patient Records regulations: The Federal rules restrict any use of the information to criminally investigate or prosecute any alcohol or drug abuse patient.[facility]imaIn the event this information is protected by the Federal Confidentiality of Alcohol and Drug Abuse Patient Records regulations: The Federal rules restrict any use of the information to criminally investigate or prosecute any alcohol or drug abuse patient.[facility]imaIn the event this information is protected by the Federal Confidentiality of Alcohol and Drug Abuse Patient Records regulations: The Federal rules restrict any use of the information to criminally investigate or prosecute any alcohol or drug abuse patient.[facility]imaIn the event this information is protected by the Federal Confidentiality of Alcohol and Drug Abuse Patient Records regulations: The Federal rules restrict any use of the information to criminally investigate or prosecute any alcohol or drug abuse patient.[facility]imaIn the event this information is protected by the Federal Confidentiality of Alcohol and Drug Abuse Patient Records regulations: The Federal rules restrict any use of the information to criminally investigate or prosecute any alcohol or drug abuse patient.[facility]imaIn the event this information is protected by the Federal Confidentiality of Alcohol and Drug Abuse Patient Records regulations: The Federal rules restrict any use of the information to criminally investigate or prosecute any alcohol or drug abuse patient.[facility]imaIn the event this information is protected by the Federal Confidentiality of Alcohol and Drug Abuse Patient Records regulations: The Federal rules restrict any use of the information to criminally investigate or prosecute any alcohol or drug abuse patient.[facility]imaIn the event this information is protected by the Federal Confidentiality of Alcohol and Drug Abuse Patient Records regulations: The Federal rules restrict any use of the information to criminally investigate or prosecute any alcohol or drug abuse patient.[facility]imaIn the event this information is protected by the Federal Confidentiality of Alcohol and Drug Abuse Patient Records regulations: The Federal rules restrict any use of the information to criminally investigate or prosecute any alcohol or drug abuse patient.[facility]imaIn the event this information is protected by the Federal Confidentiality of Alcohol and Drug Abuse Patient Records regulations: The Federal rules restrict any use of the information to criminally investigate or prosecute any alcohol or drug abuse patient.[facility]imaIn the event this information is protected by the Federal Confidentiality of Alcohol and Drug Abuse Patient Records regulations: The Federal rules restrict any use of the information to criminally investigate or prosecute any alcohol or drug abuse patient.[facility]imaIn the event this information is protected by the Federal Confidentiality of Alcohol and Drug Abuse Patient Records regulations: The Federal rules restrict any use of the information to criminally investigate or prosecute any alcohol or drug abuse patient.[facility]imaIn the event this information is protected by the Federal Confidentiality of Alcohol and Drug Abuse Patient Records regulations: The Federal rules restrict any use of the information to criminally investigate or prosecute any alcohol or drug abuse patient.[facility]imaIn the event this information is protected by the Federal Confidentiality of Alcohol and Drug Abuse Patient Records regulations: The Federal rules restrict any use of the information to criminally investigate or prosecute any alcohol or drug abuse patient.[facility]imaIn the event this information is protected by the Federal Confidentiality of Alcohol and Drug Abuse Patient Records regulations: The Federal rules restrict any use of the information to criminally investigate or prosecute any alcohol or drug abuse patient.[facility]imaIn the event this information is protected by the Federal Confidentiality of Alcohol and Drug Abuse Patient Records regulations: The Federal rules restrict any use of the information to criminally investigate or prosecute any alcohol or drug abuse patient.[facility]imaIn the event this information is protected by the Federal Confidentiality of Alcohol and Drug Abuse Patient Records regulations: The Federal rules restrict any use of the information to criminally investigate or prosecute any alcohol or drug abuse patient.[facility]imaIn the event this information is protected by the Federal Confidentiality of Alcohol and Drug Abuse Patient Records regulations: The Federal rules restrict any use of the information to criminally investigate or prosecute any alcohol or drug abuse patient.[facility]imaIn the event this information is protected by the Federal Confidentiality of Alcohol and Drug Abuse Patient Records regulations: The Federal rules restrict any use of the information to criminally investigate or prosecute any alcohol or drug abuse patient.[facility]imaIn the event this information is protected by the Federal Confidentiality of Alcohol and Drug Abuse Patient Records regulations: The Federal rules restrict any use of the information to criminally investigate or prosecute any alcohol or drug abuse patient.[facility]imaIn the event this information is protected by the Federal Confidentiality of Alcohol and Drug Abuse Patient Records regulations: The Federal rules restrict any use of the information to criminally investigate or prosecute any alcohol or drug abuse patient.[facility]imaIn the event this information is protected by the Federal Confidentiality of Alcohol and Drug Abuse Patient Records regulations: The Federal rules restrict any use of the information to criminally investigate or prosecute any alcohol or drug abuse patient.[facility]imaIn the event this information is protected by the Federal Confidentiality of Alcohol and Drug Abuse Patient Records regulations: The Federal rules restrict any use of the information to criminally investigate or prosecute any alcohol or drug abuse patient.[facility]imaIn the event this information is protected by the Federal Confidentiality of Alcohol and Drug Abuse Patient Records regulations: The Federal rules restrict any use of the information to criminally investigate or prosecute any alcohol or drug abuse patient.[facility]imaIn the event this information is protected by the Federal Confidentiality of Alcohol and Drug Abuse Patient Records regulations: The Federal rules restrict any use of the information to criminally investigate or prosecute any alcohol or drug abuse patient.[facility]imaIn the event this information is protected by the Federal Confidentiality of Alcohol and Drug Abuse Patient Records regulations: The Federal rules restrict any use of the information to criminally investigate or prosecute any alcohol or drug abuse patient.[facility]imaIn the event this information is protected by the Federal Confidentiality of Alcohol and Drug Abuse Patient Records regulations: The Federal rules restrict any use of the information to criminally investigate or prosecute any alcohol or drug abuse patient.[facility]imaIn the event this information is protected by the Federal Confidentiality of Alcohol and Drug Abuse Patient Records regulations: The Federal rules restrict any use of the information to criminally investigate or prosecute any alcohol or drug abuse patient.[facility]imaIn the event this information is protected by the Federal Confidentiality of Alcohol and Drug Abuse Patient Records regulations: The Federal rules restrict any use of the information to criminally investigate or prosecute any alcohol or drug abuse patient.[facility]imaIn the event this information is protected by the Federal Confidentiality of Alcohol and Drug Abuse Patient Records regulations: The Federal rules restrict any use of the information to criminally investigate or prosecute any alcohol or drug abuse patient.[facility]imaIn the event this information is protected by the Federal Confidentiality of Alcohol and Drug Abuse Patient Records regulations: The Federal rules restrict any use of the information to criminally investigate or prosecute any alcohol or drug abuse patient.[facility]imaIn the event this information is protected by the Federal Confidentiality of Alcohol and Drug Abuse Patient Records regulations: The Federal rules restrict any use of the information to criminally investigate or prosecute any alcohol or drug abuse patient.[facility]imaIn the event this information is protected by the Federal Confidentiality of Alcohol and Drug Abuse Patient Records regulations: The Federal rules restrict any use of the information to criminally investigate or prosecute any alcohol or drug abuse patient.[facility]imaIn the event this information is protected by the Federal Confidentiality of Alcohol and Drug Abuse Patient Records regulations: The Federal rules restrict any use of the information to criminally investigate or prosecute any alcohol or drug abuse patient.[facility]imaIn the event this information is protected by the Federal Confidentiality of Alcohol and Drug Abuse Patient Records regulations: The Federal rules restrict any use of the information to criminally investigate or prosecute any alcohol or drug abuse patient.[facility]imaIn the event this information is protected by the Federal Confidentiality of Alcohol and Drug Abuse Patient Records regulations: The Federal rules restrict any use of the information to criminally investigate or prosecute any alcohol or drug abuse patient.[facility]imaIn the event this information is protected by the Federal Confidentiality of Alcohol and Drug Abuse Patient Records regulations: The Federal rules restrict any use of the information to criminally investigate or prosecute any alcohol or drug abuse patient.[facility]imaIn the event this information is protected by the Federal Confidentiality of Alcohol and Drug Abuse Patient Records regulations: The Federal rules restrict any use of the information to criminally investigate or prosecute any alcohol or drug abuse patient.[facility]imaIn the event this information is protected by the Federal Confidentiality of Alcohol and Drug Abuse Patient Records regulations: The Federal rules restrict any use of the information to criminally investigate or prosecute any alcohol or drug abuse patient.[facility]imaIn the event this information is protected by the Federal Confidentiality of Alcohol and Drug Abuse Patient Records regulations: The Federal rules restrict any use of the information to criminally investigate or prosecute any alcohol or drug abuse patient.[facility]imaIn the event this information is protected by the Federal Confidentiality of Alcohol and Drug Abuse Patient Records regulations: The Federal rules restrict any use of the information to criminally investigate or prosecute any alcohol or drug abuse patient.[facility]imaIn the event this information is protected by the Federal Confidentiality of Alcohol and Drug Abuse Patient Records regulations: The Federal rules restrict any use of the information to criminally investigate or prosecute any alcohol or drug abuse patient.[facility]imaIn the event this information is protected by the Federal Confidentiality of Alcohol and Drug Abuse Patient Records regulations: The Federal rules restrict any use of the information to criminally investigate or prosecute any alcohol or drug abuse patient.[facility]imaIn the event this information is protected by the Federal Confidentiality of Alcohol and Drug Abuse Patient Records regulations: The Federal rules restrict any use of the information to criminally investigate or prosecute any alcohol or drug abuse patient.[facility]imaIn the event this information is protected by the Federal Confidentiality of Alcohol and Drug Abuse Patient Records regulations: The Federal rules restrict any use of the information to criminally investigate or prosecute any alcohol or drug abuse patient.[facility]imaIn the event this information is protected by the Federal Confidentiality of Alcohol and Drug Abuse Patient Records regulations: The Federal rules restrict any use of the information to criminally investigate or prosecute any alcohol or drug abuse patient.[facility]imaIn the event this information is protected by the Federal Confidentiality of Alcohol and Drug Abuse Patient Records regulations: The Federal rules restrict any use of the information to criminally investigate or prosecute any alcohol or drug abuse patient.[facility]imaIn the event this information is protected by the Federal Confidentiality of Alcohol and Drug Abuse Patient Records regulations: The Federal rules restrict any use of the information to criminally investigate or prosecute any alcohol or drug abuse patient.[facility]imaIn the event this information is protected by the Federal Confidentiality of Alcohol and Drug Abuse Patient Records regulations: The Federal rules restrict any use of the information to criminally investigate or prosecute any alcohol or drug abuse patient.[facility]imaIn the event this information is protected by the Federal Confidentiality of Alcohol and Drug Abuse Patient Records regulations: The Federal rules restrict any use of the information to criminally investigate or prosecute any alcohol or drug abuse patient.[facility]imaIn the event this information is protected by the Federal Confidentiality of Alcohol and Drug Abuse Patient Records regulations: The Federal rules restrict any use of the information to criminally investigate or prosecute any alcohol or drug abuse patient.[facility]imaIn the event this information is protected by the Federal Confidentiality of Alcohol and Drug Abuse Patient Records regulations: The Federal rules restrict any use of the information to criminally investigate or prosecute any alcohol or drug abuse patient.[facility]imaIn the event this information is protected by the Federal Confidentiality of Alcohol and Drug Abuse Patient Records regulations: The Federal rules restrict any use of the information to criminally investigate or prosecute any alcohol or drug abuse patient.[facility]imaIn the event this information is protected by the Federal Confidentiality of Alcohol and Drug Abuse Patient Records regulations: The Federal rules restrict any use of the information to criminally investigate or prosecute any alcohol or drug abuse patient.[facility]imaIn the event this information is protected by the Federal Confidentiality of Alcohol and Drug Abuse Patient Records regulations: The Federal rules restrict any use of the information to criminally investigate or prosecute any alcohol or drug abuse patient.[facility]imaIn the event this information is protected by the Federal Confidentiality of Alcohol and Drug Abuse Patient Records regulations: The Federal rules restrict any use of the information to criminally investigate or prosecute any alcohol or drug abuse patient.[facility]imaIn the event this information is protected by the Federal Confidentiality of Alcohol and Drug Abuse Patient Records regulations: The Federal rules restrict any use of the information to criminally investigate or prosecute any alcohol or drug abuse patient.[facility]imaIn the event this information is protected by the Federal Confidentiality of Alcohol and Drug Abuse Patient Records regulations: The Federal rules restrict any use of the information to criminally investigate or prosecute any alcohol or drug abuse patient.[facility]imaIn the event this information is protected by the Federal Confidentiality of Alcohol and Drug Abuse Patient Records regulations: The Federal rules restrict any use of the information to criminally investigate or prosecute any alcohol or drug abuse patient.[facility]imaIn the event this information is protected by the Federal Confidentiality of Alcohol and Drug Abuse Patient Records regulations: The Federal rules restrict any use of the information to criminally investigate or prosecute any alcohol or drug abuse patient.[facility]imaIn the event this information is protected by the Federal Confidentiality of Alcohol and Drug Abuse Patient Records regulations: The Federal rules restrict any use of the information to criminally investigate or prosecute any alcohol or drug abuse patient.[facility]imaIn the event this information is protected by the Federal Confidentiality of Alcohol and Drug Abuse Patient Records regulations: The Federal rules restrict any use of the information to criminally investigate or prosecute any alcohol or drug abuse patient.[facility]imaIn the event this information is protected by the Federal Confidentiality of Alcohol and Drug Abuse Patient Records regulations: The Federal rules restrict any use of the information to criminally investigate or prosecute any alcohol or drug abuse patient.[facility]imaIn the event this information is protected by the Federal Confidentiality of Alcohol and Drug Abuse Patient Records regulations: The Federal rules restrict any use of the information to criminally investigate or prosecute any alcohol or drug abuse patient.[facility]imaIn the event this information is protected by the Federal Confidentiality of Alcohol and Drug Abuse Patient Records regulations: The Federal rules restrict any use of the information to criminally investigate or prosecute any alcohol or drug abuse patient.[facility]imaIn the event this information is protected by the Federal Confidentiality of Alcohol and Drug Abuse Patient Records regulations: The Federal rules restrict any use of the information to criminally investigate or prosecute any alcohol or drug abuse patient.[facility]imaIn the event this information is protected by the Federal Confidentiality of Alcohol and Drug Abuse Patient Records regulations: The Federal rules restrict any use of the information to criminally investigate or prosecute any alcohol or drug abuse patient.[facility]imaIn the event this information is protected by the Federal Confidentiality of Alcohol and Drug Abuse Patient Records regulations: The Federal rules restrict any use of the information to criminally investigate or prosecute any alcohol or drug abuse patient.[facility]imaIn the event this information is protected by the Federal Confidentiality of Alcohol and Drug Abuse Patient Records regulations: The Federal rules restrict any use of the information to criminally investigate or prosecute any alcohol or drug abuse patient.[facility]imaIn the event this information is protected by the Federal Confidentiality of Alcohol and Drug Abuse Patient Records regulations: The Federal rules restrict any use of the information to criminally investigate or prosecute any alcohol or drug abuse patient.[facility]imaIn the event this information is protected by the Federal Confidentiality of Alcohol and Drug Abuse Patient Records regulations: The Federal rules restrict any use of the information to criminally investigate or prosecute any alcohol or drug abuse patient.[facility]imaIn the event this information is protected by the Federal Confidentiality of Alcohol and Drug Abuse Patient Records regulations: The Federal rules restrict any use of the information to criminally investigate or prosecute any alcohol or drug abuse patient.[facility]imaIn the event this information is protected by the Federal Confidentiality of Alcohol and Drug Abuse Patient Records regulations: The Federal rules restrict any use of the information to criminally investigate or prosecute any alcohol or drug abuse patient.[facility]imaIn the event this information is protected by the Federal Confidentiality of Alcohol and Drug Abuse Patient Records regulations: The Federal rules restrict any use of the information to criminally investigate or prosecute any alcohol or drug abuse patient.[facility]imaIn the event this information is protected by the Federal Confidentiality of Alcohol and Drug Abuse Patient Records regulations: The Federal rules restrict any use of the information to criminally investigate or prosecute any alcohol or drug abuse patient.[facility] Care Teams (unrecognized sec tion and content) Claims Manager Relationship Specialty Start Date End Date Francisco Javier Osorio MD [address] [place] [address] PCP - General Internal Medicine 03/01/18 Claims Manager Relationship Specialty Start Date End Date Francisco Javier Osorio MD [address] [place] [address] PCP - General Internal Medicine 03/01/18 Claims Manager Relationship Specialty Start Date End Date Francisco Javier Osorio MD [address] [place] [address] PCP - General Internal Medicine 03/01/18 Claims Manager Relationship Specialty Start Date End Date Francisco Javier Osorio MD [address] [place] [address] PCP - General Internal Medicine 03/01/18 Claims Manager Relationship Specialty Start Date End Date Francisco Javier Osorio MD [address] [place] [address] PCP - General Internal Medicine 03/01/18 Claims Manager Relationship Specialty Start Date End Date Francisco Javier Osorio MD [address] [place] [address] PCP - General Internal Medicine 03/01/18 Claims Manager Relationship Specialty Start Date End Date Francisco Javier Osorio MD [address] [place], [place] [address] PCP - General Internal Medicine 03/01/18 Claims Manager Relationship Specialty Start Date End Date Francisco Javier Osorio MD [address] [place], [place] [id number] PCP - General Internal Medicine 03/01/18 Claims Manager Relationship Specialty Start Date End Date Francisco Javier Osorio MD [address] [place], [place] [address] PCP - General Internal Medicine 03/01/18 Claims Manager Relationship Specialty Start Date End Date Jake Conrad MD [address] [place] [address] PCP - General Family Medicine 02/14/13 Claims Manager Relationship Specialty Start Date End Date Francisco Javier Osorio MD [address] [place] [address] PCP - General Internal Medicine 03/01/18 Claims Manager Relationship Specialty Start Date End Date Francisco Javier Osorio MD [address] [place] [address] PCP - General Internal Medicine 03/01/18 Claims Manager Relationship Specialty Start Date End Date Francisco Javier Osorio MD [address] [place] [address] PCP - General Internal Medicine 03/01/18 Claims Manager Relationship Specialty Start Date End Date Francisco Javier Osorio MD [address] [place] [address] PCP - General Internal Medicine 03/01/18 Claims Manager Relationship Specialty Start Date End Date Francisco Javier Osorio MD [address] [place] [address] PCP - General Internal Medicine 03/01/18 Claims Manager Relationship Specialty Start Date End Date Francisco Javier Oosrio MD [address] [place] [address] PCP - General Internal Medicine 03/01/18 Claims Manager Relationship Specialty Start Date End Date Francisco Javier Oosrio MD [address] [place] [address] PCP - General Internal Medicine 03/01/18 Claims Manager Relationship Specialty Start Date End Date Francisco Javier Osorio MD [address] [place] [address] PCP - General Internal Medicine 03/01/18 Claims Manager Relationship Specialty Start Date End Date Francisco Javier Osorio MD [address] [place] [address] PCP - General Internal Medicine 03/01/18 Claims Manager Relationship Specialty Start Date End Date Francisco Javier Osorio MD [address] [place] [address] PCP - General Internal Medicine 03/01/18 Claims Manager Relationship Specialty Start Date End Date Francisco Javier Osorio MD [address] [place] [address] PCP - General Internal Medicine 03/01/18 Claims Manager Relationship Specialty Start Date End Date Francisco Javier Osorio MD [address] [place] [address] PCP - General Internal Medicine 03/01/18 Claims Manager Relationship Specialty Start Date End Date Francisco Javier Osorio MD [address] [place] [address] PCP - General Internal Medicine 03/01/18 Claims Manager Relationship Specialty Start Date End Date Francisco Javier Osorio MD [address] [place] [address] PCP - General Internal Medicine 03/01/18 Claims Manager Relationship Specialty Start Date End Date Francisco Javier Osorio MD [address] [place] [address] PCP - General Internal Medicine 03/01/18 Claims Manager Relationship Specialty Start Date End Date Francisco Javier Osorio MD [address] [place] [address] PCP - General Internal Medicine 03/01/18 Claims Manager Relationship Specialty Start Date End Date Francisco Javier Osorio MD [address] [place] [address] PCP - General Internal Medicine 03/01/18 Claims Manager Relationship Specialty Start Date End Date Francisco Javier Osorio MD [address] [place] [address] PCP - General Internal Medicine 03/01/18 Claims Manager Relationship Specialty Start Date End Date Francisco Javier Osorio MD [address] [place] [address] PCP - General Internal Medicine 03/01/18 Claims Manager Relationship Specialty Start Date End Date Francisco Javier Osorio MD [address] [place], [place] [address] PCP - General Internal Medicine 03/01/18 Claims Manager Relationship Specialty Start Date End Date Francisco Javier Osorio MD [address] [place], [place] [address] PCP - General Internal Medicine 03/01/18 Claims Manager Relationship Specialty Start Date End Date Francisco Javier Osorio MD [address] [place], [place] [address] PCP - General Internal Medicine 03/01/18 Claims Manager Relationship Specialty Start Date End Date Jake Conrad MD [address] [place] [address] PCP - General Family Medicine 02/14/13 Claims Manager Relationship Specialty Start Date End Date Francisco Javier Osorio MD [address] [place], [place] [address] PCP - General Internal Medicine 03/01/18 Claims Manager Relationship Specialty Start Date End Date Francisco Javier Osorio MD [address] [place] [address] PCP - General Internal Medicine 03/01/18 Claims Manager Relationship Specialty Start Date End Date Francisco Javier Osorio MD [address] [place], [place] [address] PCP - General Internal Medicine 03/01/18 Claims Manager Relationship Specialty Start Date End Date Francisco Javier Osorio MD [address] [place] [address] PCP - General Internal Medicine 03/01/18 Claims Manager Relationship Specialty Start Date End Date Francisco Javier Osorio MD [address] [place] [address] PCP - General Internal Medicine 03/01/18 Claims Manager Relationship Specialty Start Date End Date Francisco Javier Osorio MD [address] [place] [address] PCP - General Internal Medicine 03/01/18 Claims Manager Relationship Specialty Start Date End Date Francisco Javier Osorio MD [address] [place] [address] PCP - General Internal Medicine 03/01/18 Claims Manager Relationship Specialty Start Date End Date Francisco Javier Osorio MD [address] [place] [address] PCP - General Internal Medicine 03/01/18 Claims Manager Relationship Specialty Start Date End Date Francisco Javier Osorio MD [address] [place] [address] PCP - General Internal Medicine 03/01/18 Claims Manager Relationship Specialty Start Date End Date Francisco Javier Osorio MD [address] [place] [address] PCP - General Internal Medicine 03/01/18 Claims Manager Relationship Specialty Start Date End Date Francisco Javier Osorio MD [address] [place] [address] PCP - General Internal Medicine 03/01/18 Claims Manager Relationship Specialty Start Date End Date Francisco Javier Osorio MD [address] [place] [address] PCP - General Internal Medicine 03/01/18 Claims Manager Relationship Specialty Start Date End Date Francisco Javier Osorio MD [address] [place] [address] PCP - General Internal Medicine 03/01/18 Claims Manager Relationship Specialty Start Date End Date Francisco Javier Osorio MD [address] [place] [address] PCP - General Internal Medicine 03/01/18 Claims Manager Relationship Specialty Start Date End Date Francisco Javier Osorio MD [address] [place] [address] PCP - General Internal Medicine 03/01/18 Claims Manager Relationship Specialty Start Date End Date Francisco Javier Osorio MD [address] [place] [address] PCP - General Internal Medicine 03/01/18 Claims Manager Relationship Specialty Start Date End Date Francisco Javier Osorio MD [address] [place] [address] PCP - General Internal Medicine 03/01/18 Claims Manager Relationship Specialty Start Date End Date Francisco Javier Osorio MD [address] [place] [address] PCP - General Internal Medicine 03/01/18 Claims Manager Relationship Specialty Start Date End Date Francisco Javier Osorio MD [address] [place] [address] PCP - General Internal Medicine 03/01/18 Claims Manager Relationship Specialty Start Date End Date Francisco Javier Osorio MD [address] [place] [address] PCP - General Internal Medicine 03/01/18 Claims Manager Relationship Specialty Start Date End Date Francisco Javier Osorio MD [address] [place] [address] PCP - General Internal Medicine 03/01/18 Claims Manager Relationship Specialty Start Date End Date Francisco Javier Osorio MD [address] [place] [address] PCP - General Internal Medicine 03/01/18 Claims Manager Relationship Specialty Start Date End Date Francisco Javier Osorio MD [address] [place] [address] PCP - General Internal Medicine 03/01/18 Claims Manager Relationship Specialty Start Date End Date Francisco Javier Osorio MD [address] [place] [address] PCP - General Internal Medicine 03/01/18 Claims Manager Relationship Specialty Start Date End Date Francisco Javier Osorio MD [address] [place] [address] PCP - General Internal Medicine 03/01/18 Claims Manager Relationship Specialty Start Date End Date Francisco Javier Osorio MD [address] [place] [address] PCP - General Internal Medicine 03/01/18 Catarina Nieves, ACCOUNTS RECEIVABLE MANAGER.CERTIFIED CAREGIVER [address] [place] [address] Metal Fabricator Helper Internal Medicine 03/19/24 Claims Manager Relationship Specialty Start Date End Date Francisco Javier Osorio MD [address] [place] [address] PCP - General Internal Medicine 03/01/18 Catarina Nieves, ACCOUNTS RECEIVABLE MANAGER.CERTIFIED CAREGIVER [address] [place] [address] Metal Fabricator Helper Internal Medicine 03/19/24 Claims Manager Relationship Specialty Start Date End Date Francisco Javier Osorio MD [address] [place] [address] PCP - General Internal Medicine 03/01/18 Catarina Nieves, ACCOUNTS RECEIVABLE MANAGER.CERTIFIED CAREGIVER [address] [place] [address] Metal Fabricator Helper Internal Medicine 03/19/24 Claims Manager Relationship Specialty Start Date End Date Francisco Javier Osorio MD [address] [place] [address] PCP - General Internal Medicine 03/01/18 Catarina Nieves, ACCOUNTS RECEIVABLE MANAGER.CERTIFIED CAREGIVER [address] [place] [address] Metal Fabricator Helper Internal Medicine 03/19/24 Claims Manager Relationship Specialty Start Date End Date Francisco Javier Osorio MD [address] [place] [address] PCP - General Internal Medicine 03/01/18 Catarina Nieves, ACCOUNTS RECEIVABLE MANAGER.CERTIFIED CAREGIVER [address] [place] [address] Metal Fabricator Helper Internal Medicine 03/19/24 Claims Manager Relationship Specialty Start Date End Date Francisco Javier Osorio MD [address] [facility] [place] [address] PCP - General Internal Medicine 03/01/18 Catarina Nieves, ACCOUNTS RECEIVABLE MANAGER.CERTIFIED CAREGIVER [address] [place] [address] Metal Fabricator Helper Internal Medicine 03/19/24 Claims Manager Relationship Specialty Start Date End Date Francisco Javier Osorio MD [address] [place] [address] PCP - General Internal Medicine 03/01/18 Catarina Nieves, ACCOUNTS RECEIVABLE MANAGER.CERTIFIED CAREGIVER [address] [place] [address] Metal Fabricator Helper Internal Medicine 03/19/24 Claims Manager Relationship Specialty Start Date End Date Francisco Javier Osorio MD [address] [place] [address] PCP - General Internal Medicine 03/01/18 Catarina Nieves, ACCOUNTS RECEIVABLE MANAGER.CERTIFIED CAREGIVER [address] [place] [address] Metal Fabricator Helper Internal Medicine 03/19/24 Claims Manager Relationship Specialty Start Date End Date Francisco Javier Osorio MD [address] [place] [address] PCP - General Internal Medicine 03/01/18 Catarina Nieves, ACCOUNTS RECEIVABLE MANAGER.CERTIFIED CAREGIVER [address] [place] [address] Metal Fabricator Helper Internal Medicine 03/19/24 Claims Manager Relationship Specialty Start Date End Date Francisco Javier Osorio MD [address] [facility] [place] [address] PCP - General Internal Medicine 03/01/18 Catarina Nieves, ACCOUNTS RECEIVABLE MANAGER.CERTIFIED CAREGIVER [address] [place] [address] Metal Fabricator Helper Internal Medicine 03/19/24 Claims Manager Relationship Specialty Start Date End Date Francisco Javier Osorio MD [address] [place] [address] PCP - General Internal Medicine 03/01/18 Catarina Nieves, ACCOUNTS RECEIVABLE MANAGER.CERTIFIED CAREGIVER [address] [place] [address] Metal Fabricator Helper Internal Medicine 03/19/24 Claims Manager Relationship Specialty Start Date End Date Francisco Javier Osorio MD [address] [place] [address] PCP - General Internal Medicine 03/01/18 Catarina Nieves, ACCOUNTS RECEIVABLE MANAGER.CERTIFIED CAREGIVER [address] [place] [address] Metal Fabricator Helper Internal Medicine 03/19/24 Claims Manager Relationship Specialty Start Date End Date Francisco Javier Osorio MD [address] [place] [address] PCP - General Internal Medicine 03/01/18 Catarina Nieves, ACCOUNTS RECEIVABLE MANAGER.CERTIFIED CAREGIVER [address] [place] [address] Metal Fabricator Helper Internal Medicine 03/19/24 Claims Manager Relationship Specialty Start Date End Date Francisco Javier Osorio MD [address] [place] [address] PCP - General Internal Medicine 03/01/18 Catarina Nieves, ACCOUNTS RECEIVABLE MANAGER.CERTIFIED CAREGIVER [address] [place] [address] Metal Fabricator Helper Internal Medicine 03/19/24 Claims Manager Relationship Specialty Start Date End Date Francisco Javier Osorio MD [address] [place] [address] PCP - General Internal Medicine 03/01/18 Catarina Nieves, ACCOUNTS RECEIVABLE MANAGER.CERTIFIED CAREGIVER [address] [place] [address] Metal Fabricator Helper Internal Medicine 03/19/24 Claims Manager Relationship Specialty Start Date End Date Francisco Javier Osorio MD [address] [place] [address] PCP - General Internal Medicine 03/01/18 Catarina Nieves, ACCOUNTS RECEIVABLE MANAGER.CERTIFIED CAREGIVER [address] [place] [address] Metal Fabricator Helper Internal Medicine 03/19/24 Reason for Visit (unrecogniz ed section and content) Reason Comments PT Discharge Specialty Diagnoses / Procedures Referred By Contac t Referred To Contact [facility] Diagnoses Referred otalgia of left ear Procedures CONSULT TO PHYSICAL THERAPY PHYSICAL THERAPY EVALUATION HIGH COMPLEX [address] [place] [address] [place] [address] Phone: tel: fax: [facility] [address] [place] [address] Referral ID Status Reason Start Date Expiration Date Visits Requested Visits Authorized [id number] Authorized Auto-Generat ed Referral 04/11/2024 04/10/2025 20 20 Reason Comments PT Progress Note Specialty Diagnoses / Procedures Referred By Contac t Referred To Contact [facility] Diagnoses Referred otalgia of left ear Procedures CONSULT TO PHYSICAL THERAPY PHYSICAL THERAPY EVALUATION HIGH COMPLEX [address] [place] [address] [place] [address] [facility] [address] [address] Referral ID Status Reason Start Date Expiration Date Visits Requested Visits Authorized [id number] Authorized Auto-Generat ed Referral 04/11/2024 04/10/2025 20 20 Reason Comments Physical Therapy Specialty Diagnoses / Procedures Referred By Contac t Referred To Contact [facility] Diagnoses Chronic pain of left ankle Procedures CONSULT TO PHYSICAL THERAPY PHYSICAL THERAPY EVALUATION HIGH COMPLEX 45 MINS Aston Mcmahan [address] [place] [address] [facility] [address] [address] Referral ID Status Reason Start Date Expiration Date Visits Requested Visits Authorized [id number] Authorized Auto-Generat ed Referral 04/11/2023 04/10/2024 20 20 Reason Comments PT Eval Reason Comments PT Re-eval Reason Comments Patient Update Reason Comments Cough [...] Ear Infection Left ear infection o n 8/ at [facility] was given Amoxicillin - now feels that it is possibly in both - dx with COVID same day. Reason Comments ER F/U Reason Comments Consult LLQ abdominal pain/ Rectal bleeding Specialty Diagnoses / Procedures Referred By Contac t Referred To Contact General Surgery Diagnoses Abdominal pain, left lower quadrant Rectal bleeding Procedures CONSULT TO GENERAL SURGERY OFFICE/OUTPATIENT NEW HIGH MDM 60-74 MINUTES Francisco Javier Osorio MD [address] [place] [address] Referral ID Status Reason Start Date Expiration Date V isits Requested Visits Authorized [id number] Closed PCP Requested Referral 01/31/2023 01/31/2024 1 1 Reason Comments Information Reason Comments Radiology US Specialty Diagnoses / Procedures [facility] Diagnoses Subareolar mass of left breast Procedures US BREAST LTD LEFT US BREAST UNI REAL TIME WITH IMAGE LIMITED Francisco Javier Osorio MD [address] [place] [address] [facility] [address] [place] [address] Referral ID Status Reason Start Date Expiration Date V isits Requested Visits Authorized [id number] Closed Auto-Generate d Referral 01/31/2023 03/01/2024 1 1 Reason Comments Follow Up Review colonoscopy p athology. Reason Comments Blood Pressure Imm/Inj Hep A/B Specialty Diagnoses / Procedures [facility] To [facility] Rad[facility] / [facility] Diagnoses Other infective acute otitis externa [...] VIEWS XR CHEST Francisco Javier Osorio MD [address] [place] [address] Radio General [facility] [address] [place] [address] Referral ID Status Reason Start Date Expiration Date V isits Requested Visits Authorized [id number] Waiting for Response 06/15/2023 08/14/2023 1 1 [...] Evaluation Specialty Diagnoses / Procedures Referred By [facility] Referred To Contact Neurology Diagnoses History of seizure Procedures CONSULT TO NEUROLOGY OFFICE/OUTPATIENT NEW HIGH MDM 60 MINUTES Francisco Javier Osorio MD [address] [place] [address] Referral ID Status Reason Start Date Expiration Date V isits Requested Visits Authorized [id number] Closed PCP Requested Referral 10/28/2023 10/27/2024 1 1 Reason Comments Pain Reason Comments Ear Problem left ear ringing and hard to hear, some nasal congestion and drainage x 3 days Reason Comments Patient Question Appointment Reason Comments Consult Colonoscopy Specialty Diagnoses / Procedures Referred By [facility] Referred To Contact [facility] / [facility] Diagnoses xray main lobby Procedures XR GENERAL 7 Catarina Nieves M, ACCOUNTS RECEIVABLE MANAGER.CERTIFIED CAREGIVER [address] [place] [address] [facility] [address] [place] [address] Referral ID Status Reason Start Date Expiration Date V isits Requested Visits Authorized [id number] Closed Patient Cleared - INN Insurance Found 07/01/2020 07/01/2020 1 1 Reason Comments Pressure In Ear(s) Reason Comments Ear Problem Reoccurring left ear infections and pressure Specialty Diagnoses / Procedures Referred By [facility] Referred To Contact Ent - Otolaryngology Diagnoses Other infective acute otitis externa of both ears Acute suppurative otitis media of both ears without spontaneous rupture of tympanic membranes, recurrence not specified Acute non-recurrent frontal sinusitis Procedures CONSULT TO ENT OFFICE/OUTPATIENT NEW HIGH MDM 60 MINUTES Robyn Perdue, ACCOUNTS RECEIVABLE MANAGER.SALES PROJECT ENGINEER [address] [place] [address] Referral ID Status Reason Start Date Expiration Date V isits Requested Visits Authorized [id number] Closed PCP Requested Referral 06/07/2023 06/06/2024 1 1 Reason Comments Pre-Op Visit Specialty Diagnoses / Procedures Referred By Contac t Referred To Contact Diagnoses Achilles tendinitis of left lower extremity Pre-op testing Procedures REFER TO [facility] - PREOPERATIVE OPTIMIZATION OFFICE/OUTPATIENT [facility] 60 MINUTES Carmen Rojas MD [address] [place], [place] [id number] Referral ID Status Reason Start Date Expiration Date V isits Requested Visits Authorized [id number] Closed PCP Requested Referral 12/13/2023 12/12/2024 1 1 Reason Comments Consult Reason Comments Vomiting Constipation Reason Comments Vomiting Reason Comments 08/10/2023 EXC ANAL WARTS BOB Reason Comments Post Op Reason Comments Radiology CT Specialty Diagnoses / Procedures Referred By Contac t Referred To Contact CT IMAGING Diagnoses Bladder wall thickening Procedures CT UROGRAM WO/W IVCON CT ABD & PELVIS W/WO CONTRST 1+ BODY Jonathan Rossi, ACCOUNTS RECEIVABLE MANAGER.CERTIFIED CAREGIVER, DNP [address] [place] [address] [facility] [place] [address] Referral ID Status Reason Start Date Expiration Date Visits Requested Visits Authorized [id number] Waiting for Response Auto-Genera paul Referral Patient Cleared - Admin/Chair man/Directo r advise to proceed or did not respond 02/21/2025 1 1 Reason Comments Follow Up Follow up; pt stated that ears are still bothering him more than the right. Reason Comments Post Op Reason Comments Cystoscopy-1 Bladder wall thicken ing Urinary Incontinence Specialty Diagnoses / Procedures Referred By Contac t Referred To Contact Urology / UROLOGY Diagnoses Bladder wall thickening cysto/trus Procedures CYSTOURETHROSCOPY CYSTOSCOPY TRUS Self Sebastien Petty MD [address] [place] [address] Referral ID Status Reason Start Date Expiration Date Visits Re quested Visits Authorized [id number] Closed 02/23/2024 04/10/2024 1 1 Reason Comments Ear Problem Reason Comments Cough Fever Reason Comments Ear Problem Reason Comments Follow Up Reason Comments Illness Reason Comments F/U 6 months med refills needed Reason Onset Date Comments Outpatient Colonoscopy 07/23/2024 Patient i s overdue for colorectal cancer screening (has never done). Please schedule open access colonoscopy. Reason Comments Sore Throat ST, nausea and fever x 1 day FOR RECORDS PERTAINING TO PATIENTS WHO ARE [...] BE BASED ON THE PRIMARY CLINICAL RECORDS. [facility] [employer] provides no warranty or guarantee of the accuracy or completeness of information in this document.
[2025-03-07] MEDS: 0.9% Normal Saline (1000mL) 1,000 ML 1000 ML IV (20:57)
--- NOTE | 2025-03-07 21:03 | RAD_ITS ---
PROCEDURE: CHEST PA AND LATERAL 03/07/2025 REASON FOR EXAM: COUGH TECHNIQUE: Procedure Code: RADCXR Modality: DX Procedure: CHEST PA AND LATERAL COMPARISON: 09/19/2024. FINDINGS: Subtle opacification in the right middle lobe is similar to the previous study and could represent infiltrates. Otherwise the lungs are clear. The cardiomediastinal silhouette appears unremarkable. No acute osseous abnormality. Moderate thoracic spondylosis. RAD/Chest PA and Lateral IMPRESSION: As above. Reading Location: [id number]
[2025-03-07 21:04] VITALS: BP 117/61; PULSE 104; RESP 16; O2SAT 97
[2025-03-07 21:05] VITALS: BP 117/61; PULSE 104; RESP 16; TEMP 36.9; O2SAT 97
[2025-03-07 21:05] LABS: Squamous Epithelial Cells - UA 0 SEEN /hpf (0-5)
--- NOTE | 2025-03-07 21:17 | CT_ITS ---
PROCEDURE: ABDOMEN/PELVIS W IV CONT ONLY 03/07/2025 REASON FOR EXAM: PERIANAL ABSCESS TECHNIQUE: Procedure Code: [id number] Modality: CT Procedure: ABDOMEN/PELVIS W IV CONT ONLY Coronal and Sagittal reconstruction series were provided. CONTRAST: VOLUME: mL One or more dose reduction techniques were used (e.g., Automated exposure control, adjustment of the mA and/or kV according to patient size, use of iterative reconstruction technique. COMPARISON: 02/07/2024. FINDINGS: The visualized lung bases are clear. Fatty liver, unchanged. Large amount of stool within the ascending and transverse colon, similar to the previous study. No evidence of a bowel obstruction. The appendix is not clearly identified, however no inflammatory changes are noted in the pericecal region. No evidence of a bowel obstruction. Diverticula are seen within the sigmoid colon without adjacent inflammatory changes, unchanged. Mild fatty pancreas, unchanged. No intraperitoneal free air or free fluid. No lymphadenopathy. A peripherally enhancing fluid collection measuring 3.5 x 1.8 by 4.4 cm is noted along the left side of the gluteal cleft within the left buttock (series 2, image 132, series 602.2 image 87), compatible with a perianal abscess. Mild thoracolumbar spondylosis. CT/Abdomen/Pelvis W IV Cont ONLY IMPRESSION: Left perianal abscess. Large amount of stool within the ascending and transverse colon, similar to the previous study. Sigmoid diverticulosis without CT evidence of diverticulitis, unchanged. Reading Location: [id number]
[2025-03-07 21:24] LABS: Color, Urine Yellow (Yellow); Glucose, Dipstick Normal (Normal); Ketone-Dipstick 5 mg/dl (Negative); Leukocyte Esterase-Dipstick Negative /ul (Negative); Nitrite-Dipstick Negative (Negative); Occult Blood-Urine 10 /ul (Negative); Protein-Dipstick 15 mg/dl (Negative); Specific Gravity, Urine 1.020 (1.002-1.030); Urine Bilirubin Dipstick Negative (Negative)
[2025-03-07 21:24] LABS: Hematocrit 39.2 % (40-54); Hemoglobin 13.2 g/dL (13.0-16.5); Immature Granulocytes Count 0.060 X10^3/uL (0.0-0.0); Mean Corp Hgb Conc 33.7 g/dL (32-36); Mean Corpuscular Volume 86.3 fL (80-94); Mean Platelet Vol. 9.7 fl (6.2-12.0); NRBC Flagged by Analyzer 0 % (0-5); Platelet Count 301 K/mm3 (150-450); RBC Distribution Width CV 12.7 % (11.6-14.6); RBC Distribution Width SD 40.0 fl (35.1-43.9); Red Blood Count 4.54 M/mm3 (4.6-6.2); White Blood Count 10.2 K/mm3 (4.4-11.0)
[2025-03-07 21:47] LABS: Mucous, Urine RARE /hpf (<or=2+); Red Blood Cells-Urine 0-5 SEEN /hpf (0-5)
[2025-03-07 22:00] VITALS: BP 111/64; PULSE 98; RESP 18; TEMP 36.8; O2SAT 98
[2025-03-07 22:21] LABS: AST(SGOT) 15 U/L (<=37); Alanine Aminotransfer ALT/SGPT 23 U/L (<=46); Albumin, Serum 3.5 g/dL (3.5-5.0); Alkaline Phosphatase 55 U/L (40-129); Anion Gap 11 (5-15); BUN 13 mg/dL (4-19); BUN/Creat Ratio 12.8 RATIO (10-20); Calcium,Total 8.7 mg/dL (7.6-11.0); Carbon Dioxide 23.4 mmol/L (21.0-32.0); Chloride 104 mmol/L (98-108); Estimated Creatinine Clearance 107.28 ml/min (50-250); Globulin 2.7 g/dL (2.2-4.2); Glucose 94 mg/dL (70-99); Potassium 3.4 mmol/L (3.3-5.1)
[2025-03-07] MEDS: Lidocaine 1% /Epi 1:100 (20ml) 20 ML Vial INFILT (22:58)
[2025-03-07 23:00] VITALS: BP 112/64; PULSE 94; RESP 18; TEMP 36.8; O2SAT 98
[2025-03-08] VITALS: BP 110/71; PULSE 88; RESP 20; TEMP 36.8; O2SAT 97
[2025-03-08 00:50] LABS: Reflex Lactate? Y
[2025-03-08 00:52] VITALS: BP 101/67; PULSE 83; RESP 15; TEMP 36.8; O2SAT 93
== END 2025-03-08 01:07 | disposition home or self-care (01) ==
PROVIDERS: Emergency Provider Surgery; PCP Internal Medicine; Visit Provider Surgery
DX: K61.0 Anal abscess (principal); E86.0 Dehydration; E87.21 Acute metabolic acidosis; M79.10 Myalgia, unspecified site; R05.1 Acute cough
CPT/HCPCS: 46050; 10060; 71046; 74177; 80053; 81001; 83605; 85025; 87040; 87070; 87077; 87186; 87205; 87631; 93005; 96361; 96374; 99284; Q9967; A4216